=== PATIENT | female | born 2000 | race Caucasian/White ===

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

== ENCOUNTER 2021-10-19 21:58 | Emergency (ER) | payer MEDICAID, SELFPAY ==
[2021-10-19 21:59] VITALS: BP 125/82; PULSE 85; RESP 16; TEMP 36.9; O2SAT 100; BMI 22.1
--- NOTE | 2021-10-19 22:32 | US_ITS ---
STUDY: FIRST TRIMESTER OBSTETRICAL ULTRASOUND REASON FOR EXAM: Female, 21 years old pelvic pain and vaginal bleeding. Cramps. LMP: 09/22/2021. TECHNIQUE: Transvaginal TECHNICAL QUALITY: Adequate. PRIOR ULTRASOUND: None. FINDINGS: There is no demonstrated intrauterine gestational sac. . The estimated gestation age (EGA) by LMP is 5 weeks, 6 days. The estimated date of delivery (EDI) by LMP is 06/15/2022.. The uterus measures 9.3 x 6.0 x 3.9 cm. The endometrium measures 13 mm in thickness and is hyperechoic. There are scattered small cystic areas. There is no demonstrated uterine fibroid. The cervix is closed. The right ovary measures 4.1 x 3.6 x 3.3 cm. There are multiple cystic follicles. There is a 2.4 x 2.5 x 2.3 times centimeters septated cyst with internal echoes. This is a ringlike enhancement suggestive of corpus luteum cyst. There is no evidence of pole or yolk sac to suggest ectopic . There is no visualized right adnexal mass or complex lesion. The left ovary measures 2.7 x 2.2 x 1.9 cm. There are multiple follicles of the left ovary without a dominant cyst. There is no visualized left adnexal mass or complex lesion. There is minimal fluid in the cul de sac. US/Transvaginal w/Preg US IMPRESSION: 1. No evidence of intrauterine . There is a prominent heterogenous endometrium. 2. Irregular cystic structure within the right ovary thought to represent a corpus luteum cyst. This does not have the appearance of an ectopic . 3. Normal left ovary. 4. Minimal free fluid in the posterior cul-de-sac. The possibility of ectopic cannot be ruled out free fluid. Follow-up with beta hCG is recommended. Electronically Signed: Je Sánchez DO at 23:26 EDT ,
[2021-10-19 22:50] LABS: Mucous, Urine 0 SEEN /hpf (<or=2+)
[2021-10-19 22:52] LABS: Color, Urine Straw (Yellow); Glucose, Dipstick Normal (Normal); Ketone-Dipstick Negative (Negative); Leukocyte Esterase-Dipstick 25 /ul (Negative); Nitrite-Dipstick Negative (Negative); Occult Blood-Urine 250 /ul (Negative); Protein-Dipstick Negative (Negative); Specific Gravity, Urine 1.015 (1.002-1.030); Urine Bilirubin Dipstick Negative (Negative); Urine Clarity Clear (Clear); Urine Urobilinogen Normal (Normal)
[2021-10-19 23:11] LABS: Anion Gap 4 (5-15); BUN 18 mg/dL (7-18); BUN/Creat Ratio 19.5 RATIO (10-20); Calcium,Total 9.1 mg/dL (8.5-10.1); Chloride 107 mmol/L (98-107); Creatinine, Serum 0.92 mg/dL (0.55-1.02); EST Glomerular Filtration Rate 81 mL/min (>60); Est Glom Filt Rate - Afr Amer 98 mL/min (>60); Estimated Creatinine Clearance 80.02 ml/min; Glucose 98 mg/dL (74-106); Potassium 3.6 mmol/L (3.5-5.1); Sodium Level 137 mmol/L (136-145)
[2021-10-19 23:12] LABS: Absolute Lymphocyte Count 3.17 X10^3/uL (0.83-4.51); Absolute Neutrophil Count 6.6 X10^3/uL (2.0-7.7); Basophil# 0.06 X10^3/uL; Basophil% 0.6 % (0-1); Eosinophils% 3.7 % (0-5); Hematocrit 36.9 % (37-47); Hemoglobin 12.7 g/dL (12.0-15.0); Lymphocyte # 3.17 X10^3/ul (0.83-4.51); Lymphocyte % 29.1 % (19-41); Mean Corp Hgb Conc 34.4 g/dL (32-36); Mean Corpuscular Hgb 31.4 pg (27.0-32.0); Mean Corpuscular Volume 91.1 fL (81-99); Mean Platelet Vol. 9.9 fl (6.2-12.0); Monocyte# 0.55 X10^3/uL; NRBC Flagged by Analyzer 0 % (0-5); Neutrophil # 6.61 X10^3/uL (2.7-7.7); Neutrophil % 60.6 % (47-70); Platelet Count 292 K/mm3 (150-450); RBC Distribution Width SD 40.5 fl (35.1-43.9); Red Blood Count 4.05 M/mm3 (4.2-5.4); White Blood Count 10.9 K/mm3 (4.4-11.0)
[2021-10-19 23:15] LABS: hCG Titer Quant., Serum 961 mIU/mL (1-3)
[2021-10-19 23:47] LABS: Bacteria 1+ /hpf (None Seen); Red Blood Cells-Urine 0-5 SEEN /hpf (0-5); Squamous Epithelial Cells - UA 0-5 SEEN /hpf (5-10); White Blood Cells 0-5 SEEN /hpf (0-5)
--- NOTE | 2021-10-20 00:23 | ED.VIS.FEGU ---
HPI HPI - Female History of Present Illness Chief Complaint: Vag Bld, Preg Narrative Narrative: Patient is a G1, P0 female no significant past medical history. She states that she is approximately 2 weeks late on her menstrual cycle and a couple days ago took a home test which was positive. She states today she has some suprapubic cramping and mild amount of bleeding and with her status was concerned and therefore comes in for evaluation. PFSH PFSH Medical History no medical history Home Medications metronidazole 500 mg tablet (Flagyl) 500 mg PO BID 09/01/16 [History Last Taken 08/31/16] amoxicillin 500 mg capsule 500 mg PO TID 7 days #21 caps 10/20/21 [Rx Last Taken Unknown] Allergy/AdvReac Type Severity Reaction Status Date / Time No Known Allergies Allergy Verified 10/19/21 22:01 Social History Smoking Status: Current some day smoker tobacco type: e-cigarettes ROS ROS ED Constitutional Constitutional ED: Denies chills or fever(s) ENT ENT ED: Denies sore throat Cardiovascular Cardiovascular: Denies chest pain Respiratory/Chest Respiratory/Chest: Denies cough or dyspnea Gastrointestinal Gastrointestinal: Reports abdominal pain; Denies diarrhea, nausea or vomiting Genitourinary Genitourinary ED: Reports other Details: Positive vaginal bleeding but negative discharge ; Denies dysuria Musculoskeletal Musculoskeletal: Denies myalgias Integumentary Denies rash Neurologic Neurologic: Denies headache(s) Hematologic/Lymphatic Hematologic/Lymphatic: Denies easy bleeding or easy bruising EXAM Physical Exam Const Vital Signs: 10/19/21 21:59 Temperature 98.5 F Temperature Source Temporal Pulse Rate 85 Respiratory Rate 16 Blood Pressure 125/82 H Blood Pressure Mean 96 Pulse Ox 100 Oxygen Delivery Method Room Air Positive well nourished and well developed General Appearance ED: well developed HEENT Reports moist mucous membranes Eyes PERRL and EOMs intact bilaterally Neck supple Resp normal respiratory effort and clear to auscultation bilaterally Cardio regular rate and regular rhythm GI non-distended GI Narrative: Mild pain with palpation in the suprapubic region without voluntary guarding or rigidity Auscultation: normoactive bowel sounds Palpation: soft Back/Spine no CVA tenderness Extremity normal to inspection Neuro oriented x3 and CN's II-XII intact bilaterally Sensorium / Orientation: alert Psych mental status grossly normal Skin no rashes or lesions noted MDM MDM MDM Narrative Medical decision making narrative: Patient presented to the ER with stable vitals. She reported being with bleeding and abdominal pain and therefore a basic work-up was obtained along with transvaginal ultrasound. Patient's blood type is a positive therefore there is no need for RhoGAM. Her H&H is stable and her marker is only elevated slightly at 961. Ultrasound not show any obvious intrauterine gestation but cannot completely rule out ectopic . Secondary to this I discussed the case with [facility]. They agreed at this time with her stable vitals and minimal pain as well as low hCG value that there is no need for further evaluation at this time. She can follow-up on an outpatient basis and have repeat hCG values as well as ultrasounds obtained if necessary. Her urine did show mild bacteria without contamination and therefore urine was sent for culture and she was started on amoxicillin Lab Data Attestation: I reviewed the patient's lab results. Labs: Laboratory Results - last 24 hr 10/19/21 10/19/21 10/19/21 22:44 22:48 22:48 WBC 10.9 RBC 4.05 L Hgb 12.7 Hct 36.9 L MCV 91.1 MCH 31.4 MCHC 34.4 RDW Std Deviation 40.5 RDW Coeff of Lamin 12.0 Plt Count 292 MPV 9.9 Immature Gran % (Auto) 1.000 H Neut % (Auto) 60.6 Lymph % (Auto) 29.1 [place] % (Auto) 5.0 Eos % (Auto) 3.7 Baso % (Auto) 0.6 Absolute Neuts (auto) 6.6 Absolute Lymphs (auto) 3.17 Nucleated RBC % 0 Sodium 137 Potassium 3.6 Chloride 107 Carbon Dioxide 26.0 Anion Gap 4 L BUN 18 Creatinine 0.92 Estim Creat Clear Calc 80.02 Est GFR (MDRD) Af Amer 98 Est GFR (MDRD) Non-Af 81 BUN/Creatinine Ratio 19.5 Glucose 98 Calcium 9.1 HCG, Quant Urine Color Straw Urine Clarity Clear Urine pH 6.0 Ur Specific [place] 1.015 Urine Protein Negative Urine Glucose (UA) Normal Urine Ketones Negative Urine Occult Blood 250 H Urine Nitrite Negative Urine Bilirubin Negative Urine Urobilinogen Normal Ur Leukocyte Esterase 25 H Urine RBC 0-5 SEEN Urine WBC 0-5 SEEN Ur Squamous Epith Cells 0-5 SEEN Urine Bacteria 1+ Urine Mucus 0 SEEN Blood Type 10/19/21 10/19/21 22:48 22:48 WBC RBC Hgb Hct MCV MCH MCHC RDW Std Deviation RDW Coeff of [place]amin Plt Count MPV Immature Gran % (Auto) Neut % (Auto) Lymph % (Auto) [place] % (Auto) Eos % (Auto) Baso % (Auto) Absolute Neuts (auto) Absolute Lymphs (auto) Nucleated RBC % Sodium Potassium Chloride Carbon Dioxide Anion Gap BUN Creatinine Estim Creat Clear Calc Est GFR (MDRD) Af Amer Est GFR (MDRD) Non-Af BUN/Creatinine Ratio Glucose Calcium HCG, Quant 961 H Urine Color Urine Clarity Urine pH Ur Specific [place] Urine Protein Urine Glucose (UA) Urine Ketones Urine Occult Blood Urine Nitrite Urine Bilirubin Urine Urobilinogen Ur Leukocyte Esterase Urine RBC Urine WBC Ur Squamous Epith Cells Urine Bacteria Urine Mucus Blood Type A POSITIVE Radiography Diagnostic Testing: Clinical Impression(s) from Imaging Studies Obstetrics Ultrasound 10/19/21 22:32 IMPRESSION: 1. No evidence of intrauterine . There is a prominent heterogenous endometrium. 2. Irregular cystic structure within the right ovary thought to represent a corpus luteum cyst. This does not have the appearance of an ectopic . 3. Normal left ovary. 4. Minimal free fluid in the posterior cul-de-sac. The possibility of ectopic cannot be ruled out free fluid. Follow-up with beta hCG is recommended. Electronically Signed: Je Sánchez DO at 23:26 EDT Reading Location ID and State: [address] [place] [address] Tel [phone], Service support , Discharge Plan Triage Chief Complaint: Vag Bld, Preg ED Provider: Ezio Shipley Dx/Rx/DC Orders Clinical Impression: Threatened miscarriage in early Instructions: ED Possible Miscarriage ... Prescriptions: New amoxicillin 500 mg capsule 500 mg PO TID 7 Days Qty: 21 0RF No Action metronidazole [Flagyl] 500 MG tablet 500 mg PO BID Primary Care Provider: Care Physician,No Primary Referrals: Zuleyma Huston DO [Med Staff - Active Staff] - 1 Day Care Physician,No Primary [Primary Care Provider] - Activity Restrictions/Additional Instructions: Please follow-up with [facility] and for repeat blood work as well as evaluation. If you develop a fever over 100.4 or have severe increase in pain or bleeding please return to the ER for repeat evaluation Disposition Disposition: Home, Self Care Discharge Date/Time: 10/20/21 00:46
== END 2021-10-20 00:46 | disposition home or self-care (01) ==
PROVIDERS: Emergency Provider Emergency Medicine; Visit Provider Emergency Medicine
DX: O20.0 Threatened abortion (principal); O99.330 Smoking (tobacco) complicating pregnancy, unspecified trimester; F17.290 Nicotine dependence, other tobacco product, uncomplicated; Z3A.00 Weeks of gestation of pregnancy not specified
CPT/HCPCS: 36415; 76817; 80048; 81001; 84702; 85025; 86900; 86901; 87086; 87088; 99282

== ENCOUNTER → 2021-10-21 | Outpatient (CLI) | payer MEDICAID, SELFPAY ==
[2021-10-21 11:55] LABS: hCG Titer Quant., Serum 1755 mIU/mL (1-3)
[2021-10-22 21:07] LABS: Chlamydia By Nucleic Acid AMP Positive (Negative)
[2021-10-22 21:42] LABS: Gonococcus By Nucleic Acid AMP Negative (Negative)
[2021-10-25 10:52] LABS: HPV Reflexed? NOT INDICATED
== END | disposition home or self-care (01) ==
LOC: WOBLAB 09:29
PROVIDERS: Visit Provider Student in an Organized Health Care Education/Training Program
DX: Z34.81 Encounter for supervision of other normal pregnancy, first trimester (principal); Z12.4 Encounter for screening for malignant neoplasm of cervix; Z11.3 Encounter for screening for infections with a predominantly sexual mode of transmission
CPT/HCPCS: 36415; 84702; 87491; 87591; 88175; G0145

== ENCOUNTER → 2021-11-04 | Outpatient (CLI) | payer MEDICAID, SELFPAY ==
[2021-11-04 10:37] LABS: Absolute Lymphocyte Count 1.75 X10^3/uL (0.83-4.51); Absolute Neutrophil Count 5.7 X10^3/uL (2.0-7.7); Basophil# 0.05 X10^3/uL; Basophil% 0.6 % (0-1); Eosinophil# 0.34 X10^3/uL; Eosinophils% 4.1 % (0-5); Hematocrit 39.4 % (37-47); Lymphocyte # 1.75 X10^3/ul (0.83-4.51); Lymphocyte % 21.2 % (19-41); Mean Corpuscular Hgb 30.2 pg (27.0-32.0); Mean Corpuscular Volume 91.6 fL (81-99); Mean Platelet Vol. 9.8 fl (6.2-12.0); Monocyte# 0.43 X10^3/uL; Monocyte% 5.2 % (0-10); NRBC Flagged by Analyzer 0 % (0-5); Neutrophil # 5.66 X10^3/uL (2.7-7.7); Neutrophil % 68.5 % (47-70); Platelet Count 301 K/mm3 (150-450); RBC Distribution Width CV 12.1 % (11.6-14.6); RBC Distribution Width SD 40.3 fl (35.1-43.9); White Blood Count 8.3 K/mm3 (4.4-11.0)
[2021-11-04 11:51] LABS: HIV - WCH Non-Reactive (Nonreactive); Hepatitis B Surface Antigen Non-Reactive (Nonreactive); Hepatitis C Antibody Non-Reactive (Nonreactive); Rubella IgG Reactive (Nonreactive); Syphilis Antibodies Non-reactive
[2021-11-08 18:27] LABS: V-Zoster IgG (Immunity) 314 index (Immune >165)
== END | disposition home or self-care (01) ==
LOC: PAVLAB 10:10
PROVIDERS: Visit Provider Student in an Organized Health Care Education/Training Program
DX: Z34.81 Encounter for supervision of other normal pregnancy, first trimester (principal)
CPT/HCPCS: 36415; 85025; 86703; 86762; 86780; 86787; 86803; 86850; 86900; 86901; 87086; 87088; 87340

== ENCOUNTER → 2022-01-05 | Outpatient (CLI) | payer MEDICAID, SELFPAY ==
[2022-01-06 22:07] LABS: Chlamydia By Nucleic Acid AMP Negative (Negative)
[2022-01-08 15:00] LABS: Gonococcus By Nucleic Acid AMP Negative (Negative)
== END | disposition home or self-care (01) ==
LOC: LABSPEC 09:42
PROVIDERS: Visit Provider Student in an Organized Health Care Education/Training Program
DX: Z11.3 Encounter for screening for infections with a predominantly sexual mode of transmission (principal)
CPT/HCPCS: 87491; 87591

== ENCOUNTER → 2022-03-29 | Outpatient (CLI) | payer OTHER, MEDICAID, SELFPAY ==
[2022-03-29 09:26] LABS: Absolute Lymphocyte Count 2.32 X10^3/uL (0.83-4.51); Absolute Neutrophil Count 7.3 X10^3/uL (2.0-7.7); Basophil# 0.08 X10^3/uL; Basophil% 0.7 % (0-1); Eosinophils% 6.3 % (0-5); Hematocrit 35.7 % (37-47); Hemoglobin 12.1 g/dL (12.0-15.0); Lymphocyte # 2.32 X10^3/ul (0.83-4.51); Lymphocyte % 20.8 % (19-41); Mean Corp Hgb Conc 33.9 g/dL (32-36); Mean Corpuscular Hgb 31.2 pg (27.0-32.0); Mean Platelet Vol. 10.8 fl (6.2-12.0); Monocyte# 0.67 X10^3/uL; NRBC Flagged by Analyzer 0 % (0-5); Neutrophil # 7.27 X10^3/uL (2.7-7.7); Neutrophil % 65.2 % (47-70); Platelet Count 249 K/mm3 (150-450); RBC Distribution Width CV 12.2 % (11.6-14.6); RBC Distribution Width SD 40.5 fl (35.1-43.9); Red Blood Count 3.88 M/mm3 (4.2-5.4); White Blood Count 11.2 K/mm3 (4.4-11.0)
[2022-03-29 09:53] LABS: Glucose Challenge Gest 1H 50g 131 mg/dL (70-140)
== END | disposition home or self-care (01) ==
LOC: WOBLAB 09:05
PROVIDERS: Visit Provider Student in an Organized Health Care Education/Training Program
DX: Z34.82 Encounter for supervision of other normal pregnancy, second trimester (principal)
CPT/HCPCS: 36415; 82950; 85025

== ENCOUNTER 2022-04-12 09:40 | Outpatient (CLI) | payer OTHER, MEDICAID, SELFPAY ==
[2022-04-12] VITALS (50 sets, daily range): BP systolic 123–179; BP diastolic 74–114; PULSE 51–121; RESP 16; TEMP 36.6–36.7; O2SAT 81–100; BMI 29.4
[2022-04-12] MEDS: Lactated Ringers 1,000 ML 999 ML IV (10:35)
[2022-04-12] MEDS: hydrALAZINE 20 MG/ML Vial 10 MG IV (10:47)
[2022-04-12] MEDS: Magnesium Sulfate 4gm/100mL 4 GM/100 ML IV.SOLN. IV (10:50)
[2022-04-12 10:53] LABS: Absolute Lymphocyte Count 2.81 X10^3/uL (0.83-4.51); Absolute Neutrophil Count 9.7 X10^3/uL (2.0-7.7); Basophil# 0.11 X10^3/uL; Basophil% 0.8 % (0-1); Eosinophil# 0.42 X10^3/uL; Eosinophils% 3.1 % (0-5); Hematocrit 41.5 % (37-47); Hemoglobin 14.3 g/dL (12.0-15.0); Lymphocyte # 2.81 X10^3/ul (0.83-4.51); Lymphocyte % 20.5 % (19-41); Mean Corp Hgb Conc 34.5 g/dL (32-36); Mean Corpuscular Hgb 30.4 pg (27.0-32.0); Mean Corpuscular Volume 88.3 fL (81-99); Monocyte# 0.59 X10^3/uL; Monocyte% 4.3 % (0-10); NRBC Flagged by Analyzer 0 % (0-5); Neutrophil # 9.66 X10^3/uL (2.7-7.7); Neutrophil % 70.2 % (47-70); Platelet Count 249 K/mm3 (150-450); RBC Distribution Width CV 12.7 % (11.6-14.6); RBC Distribution Width SD 41.3 fl (35.1-43.9); White Blood Count 13.7 K/mm3 (4.4-11.0)
--- NOTE | 2022-04-12 10:54 | HP.PCM.OB_ITS ---
History and Physical Date of Admission: 04/12/22 HPI: 21-year-old G1, P0 at 29/2 weeks, EDI 06/26/2022 by first trimester ultrasound, admitted for severe preeclampsia based on severe range blood pressures and persistent headache. Reports that she has had headache for 3 days it is in the occipital region. Denies visual disturbances. Has had nausea and vomiting since onset. Tylenol is not improved headache. Denies right upper quadrant pain, chest pain or shortness of breath, diarrhea or constipation, fevers or chills. Reports movement. Denies contractions, leaking of fluid, vaginal bleeding. complicated by: Chlamydia in with a negative test of cure, marginal cord insertion, eczema [employer] history G1: Current Medical history: 1. Eczema Surgical history: 1. Bunion removal bilateral feet 2013 2. [place] tooth extraction 2020 No history of issues with anesthesia Family history: Noncontributory, grandmother had ovarian cancer Allergies: No known drug allergies Social history: Denies tobacco, alcohol, drug use Review of system: Negative otherwise stated above Physical exam: Blood pressure 176/106, pulse 85, respiratory rate 16, pulse ox 100% on room air General: No acute distress HEENT: Normocephalic/atraumatic, PERRLA Cardiac: Regular rate and rhythm, no murmurs rubs or gallops Respiratory: No increased effort, clear to auscultation bilaterally Abdomen: Soft, nontender, gravid Extremities: No edema Neurologic: Cranial nerves II through XII grossly intact, patellar reflexes 3/4, no clonus Musculoskeletal: Strength 5-5 throughout extremities FHR: 135/mod alise/+accel/no decel [place]: rare labs: A positive Syphilis negative Hepatitis B/hepatitis C negative/negative HIV negative Rubella immune Varicella immune Chlamydia positive at first OB visit, repeat negative in December. Gonorrhea has been negative both times. Glucose test 131 Declined genetic and carrier screening Admission labs: WBC 13.7, hemoglobin/hematocrit 14.3/41.5, platelets 249 CMP, LDH, urine protein creatinine ratio pending GBS pending Assessment/plan: 21-year-old G1, P0 at 29/2 weeks, EDI 06/26/2022 by first trimester ultrasound, admitted for severe preeclampsia. complicated by: Chlamydia in with a negative test of cure, marginal cord insertion, eczema. ?Patient diagnosed with severe preeclampsia based on severe range blood pressures and neurologic symptoms with persistent headache. ?Patient given 10 mg IV hydralazine, repeat blood pressure pending. ?Started on magnesium sulfate 6 g bolus, followed by 2 g/h ?[place] 12 mg given ?GBS collected ?CBC within normal limits. CMP, LDH, urine protein creatinine ratio pending ?Discussed diagnosis at length with patient and her partner. Discussed recommendations for maternal blood pressure stabilization with subsequent transport to [facility]. Reviewed likely plan of care with anticipated delivery at 34 weeks. Reviewed maternal risks and risk with prolonged NICU stay. Patient and her partner understand. Questions answered. ?Reviewed plan with bedside RN and charge nurse.
[2022-04-12 11:07] LABS: Color, Urine Yellow (Yellow); Glucose, Dipstick Normal (Normal); Ketone-Dipstick Negative (Negative); Leukocyte Esterase-Dipstick 100 /ul (Negative); Nitrite-Dipstick Positive (Negative); Occult Blood-Urine 25 /ul (Negative); Protein-Dipstick 500 mg/dl (Negative); Urine Bilirubin Dipstick Negative (Negative); Urine Clarity Sl. Cloudy (Clear); Urine Urobilinogen Normal (Normal)
[2022-04-12 11:09] LABS: ALB/GLOB Ratio 0.7 RATIO (0.9-2.4); AST(SGOT) 24 U/L (15-37); Alanine Aminotransfer ALT/SGPT 20 U/L (13-56); Albumin, Serum 2.7 g/dL (3.2-5.0); Alkaline Phosphatase 305 U/L (45-117); Anion Gap 6 (5-15); BUN 29 mg/dL (7-18); Calcium,Total 10.2 mg/dL (8.5-10.1); Chloride 111 mmol/L (98-107); Creatinine, Serum 1.16 mg/dL (0.55-1.02); EST Glomerular Filtration Rate 62 mL/min (>60); Est Glom Filt Rate - Afr Amer 75 mL/min (>60); Estimated Creatinine Clearance 63.46 ml/min; Glucose 71 mg/dL (74-106); LDH 292 U/L (84-246); Potassium 4.7 mmol/L (3.5-5.1); Protein, Total 6.7 g/dL (6.4-8.2); Sodium Level 141 mmol/L (136-145)
[2022-04-12] MEDS: Magnesium Sulfate 4gm/100mL 2 GM/50 ML IV.SOLN. IV (11:15)
[2022-04-12] MEDS: Ondansetron 4 MG/2 ML Vial IV (11:17)
[2022-04-12] MEDS: Betamethasone/Betamethasone 30 MG/5 ML Vial 12 MG IM (11:23)
[2022-04-12] MEDS: Magnesium Sulfate 20 GM/500 ML BAG IV (11:30)
[2022-04-12] MEDS: Acetaminophen/Butalbital/Caffe 1 Tablet 2 TABLET PO (11:36)
[2022-04-12 11:37] LABS: Protein:Creat Ratio 10039 mg/g CRE (0-200)
[2022-04-12] MEDS: Labetalol 100 MG Tablet PO (12:24)
== END 2022-04-12 13:30 | disposition short-term general hospital (02) ==
LOC: WPOUT 09:44 → WP 09:54
PROVIDERS: Referring Provider Student in an Organized Health Care Education/Training Program; Visit Provider Student in an Organized Health Care Education/Training Program
DX: O14.13 Severe pre-eclampsia, third trimester (principal); Z3A.29 29 weeks gestation of pregnancy
CPT/HCPCS: 96375; 59050; 80053; 81002; 82570; 83615; 84156; 85025; 86850; 86900; 86901; 96365; 96372; J7120; J0702; J2405

== ENCOUNTER → 2022-05-24 | Outpatient (CLI) | payer OTHER, MEDICAID, SELFPAY ==
[2022-05-24 14:28] LABS: Hematocrit 37.2 % (37-47); Hemoglobin 11.9 g/dL (12.0-15.0); Mean Corpuscular Hgb 29.5 pg (27.0-32.0); Mean Corpuscular Volume 92.1 fL (81-99); Mean Platelet Vol. 9.8 fl (6.2-12.0); Platelet Count 310 K/mm3 (150-450); RBC Distribution Width CV 12.2 % (11.6-14.6); Red Blood Count 4.04 M/mm3 (4.2-5.4); White Blood Count 7.8 K/mm3 (4.4-11.0)
[2022-05-24 14:29] LABS: Protein:Creat Ratio 91 mg/g CRE (0-200)
[2022-05-24 14:45] LABS: ALB/GLOB Ratio 1.1 RATIO (0.9-2.4); AST(SGOT) 35 U/L (15-37); Alanine Aminotransfer ALT/SGPT 50 U/L (13-56); Albumin, Serum 3.8 g/dL (3.2-5.0); Alkaline Phosphatase 70 U/L (45-117); Anion Gap 9 (5-15); BUN 15 mg/dL (7-18); BUN/Creat Ratio 16.8 RATIO (10-20); Calcium,Total 9.3 mg/dL (8.5-10.1); Chloride 108 mmol/L (98-107); EST Glomerular Filtration Rate 84 mL/min (>60); Est Glom Filt Rate - Afr Amer 101 mL/min (>60); Globulin 3.4 g/dL (2.2-4.2); Glucose 86 mg/dL (74-106); Potassium 3.7 mmol/L (3.5-5.1); Protein, Total 7.2 g/dL (6.4-8.2); Sodium Level 141 mmol/L (136-145)
[2022-05-27 08:29] LABS: Beta-2-Microglobulin, S 1.4 mg/L (0.6-2.4)
[2022-05-27 16:09] LABS: Dilute Prothrombin Time (dPT) 38.8 sec (0.0-47.6); Dilute Russell Viper Venom 37.1 sec (0.0-47.0); Thrombin Time 18.6 sec (0.0-23.0); dPT Confirm Ratio 0.91 Ratio (0.00-1.34)
[2022-05-27 17:28] LABS: Anti-Cardiolipin Ab, IgG, Qn < 9 GPL U/mL (0-14); Anti-Cardiolipin Ab, IgM, Qn 21 MPL U/mL (0-12); Interpretation Comment: (.); PTT-LA 37.9 sec (0.0-43.5)
== END | disposition home or self-care (01) ==
LOC: WOBLAB 13:55
PROVIDERS: Visit Provider Student in an Organized Health Care Education/Training Program
DX: O14.95 Unspecified pre-eclampsia, complicating the puerperium (principal)
CPT/HCPCS: 36415; 80053; 82232; 82570; 84156; 85027; 86147; 87086; 87088

== ENCOUNTER → 2022-08-24 | Outpatient (CLI) | payer OTHER, MEDICAID, SELFPAY ==
[2022-08-27 00:06] LABS: Anti-Cardiolipin Ab, IgG, Qn < 9 GPL U/mL (0-14); Anti-Cardiolipin Ab, IgM, Qn 13 MPL U/mL (0-12); Dilute Prothrombin Time (dPT) 40.1 sec (0.0-47.6); Dilute Russell Viper Venom 40.6 sec (0.0-47.0); Interpretation Comment: (.); PTT-LA 36.4 sec (0.0-43.5); Thrombin Time 16.5 sec (0.0-23.0); dPT Confirm Ratio 1.04 Ratio (0.00-1.34)
[2022-08-27 07:08] LABS: Beta-2-Microglobulin, S 1.6 mg/L (0.6-2.4)
== END | disposition home or self-care (01) ==
LOC: WOBLAB 13:41
PROVIDERS: Visit Provider Student in an Organized Health Care Education/Training Program
DX: O14.14 Severe pre-eclampsia complicating childbirth (principal)
CPT/HCPCS: 36415; 82232; 86147

== ENCOUNTER → 2024-01-10 | Outpatient (CLI) | payer OTHER, SELFPAY ==
[2024-01-10 17:40] LABS: Absolute Lymphocyte Count 2.92 X10^3/uL (0.83-4.51); Absolute Neutrophil Count 3.6 X10^3/uL (2.0-7.7); Basophil# 0.06 X10^3/uL; Basophil% 0.8 % (0-1); Eosinophil# 0.39 X10^3/uL; Eosinophils% 5.2 % (0-5); Hematocrit 40.2 % (37-47); Hemoglobin 13.1 g/dL (12.0-15.0); Lymphocyte # 2.92 X10^3/ul (0.83-4.51); Lymphocyte % 39.1 % (19-41); Mean Corp Hgb Conc 32.6 g/dL (32-36); Mean Corpuscular Hgb 29.8 pg (27.0-32.0); Mean Corpuscular Volume 91.4 fL (81-99); Mean Platelet Vol. 11.1 fl (6.2-12.0); Monocyte# 0.45 X10^3/uL; NRBC Flagged by Analyzer 0 % (0-5); Neutrophil # 3.63 X10^3/uL (2.7-7.7); Neutrophil % 48.8 % (47-70); Platelet Count 318 K/mm3 (150-450); RBC Distribution Width CV 12.6 % (11.6-14.6); RBC Distribution Width SD 41.7 fl (35.1-43.9); White Blood Count 7.5 K/mm3 (4.4-11.0)
[2024-01-10 18:06] LABS: ALB/GLOB Ratio 1.3 RATIO (0.9-2.4); AST(SGOT) 13 U/L (15-37); Alanine Aminotransfer ALT/SGPT 14 U/L (13-56); Albumin, Serum 4.4 g/dL (3.2-5.0); Alkaline Phosphatase 49 U/L (45-117); Anion Gap 7 (5-15); BUN 10 mg/dL (7-18); BUN/Creat Ratio 11.4 RATIO (10-20); Calcium,Total 9.4 mg/dL (8.5-10.1); Chloride 106 mmol/L (98-107); Creatinine, Serum 0.88 mg/dL (0.55-1.02); EST Glomerular Filtration Rate 85 mL/min (>60); Est Glom Filt Rate - Afr Amer 102 mL/min (>60); Ferritin 13 ng/mL (8-252); Globulin 3.4 g/dL (2.2-4.2); Glucose 80 mg/dL (74-106); Potassium 3.7 mmol/L (3.5-5.1); Protein, Total 7.8 g/dL (6.4-8.2); Sodium Level 138 mmol/L (136-145)
[2024-01-16 17:07] LABS: Anti-Nuclear Antibody Test Negative (.); Anti-dsDNA Ab 1 IU/mL (0-9)
[2024-01-17 17:07] LABS: Zinc, Plasma or Serum 73 ug/dL (44-115)
== END | disposition home or self-care (01) ==
LOC: MTLAB 16:01
PROVIDERS: Referring Provider Physician Assistant; Visit Provider Physician Assistant
DX: L65.9 Nonscarring hair loss, unspecified (principal); L20.89 Other atopic dermatitis; L40.0 Psoriasis vulgaris; Z79.899 Other long term (current) drug therapy
CPT/HCPCS: 36415; 80053; 82306; 82652; 82728; 84630; 85025; 86038; 86225

== ENCOUNTER 2024-11-06 05:31 | Inpatient (IN) | payer BC, SELFPAY ==
[2024-11-06] VITALS (20 sets, daily range): BP systolic 108–132; BP diastolic 55–89; PULSE 77–110; RESP 16–18; TEMP 36.2–36.8; O2SAT 100
--- OUTSIDE RECORDS SUMMARY | 2024-11-06 04:46 | XMS RPT_ITS | CCD ---
Author Organization [facility] Care Team Providers Care Clinical Orthoptist Name Role Phone Yoli Moreland Unavailable [phone] Unavailable Unavailable GIA MCLAUGHLIN Referring Unavailable GIA MCLAUGHLIN Admitting Unavailable GIA MCLAUGHLIN Attending Unavailable Hodan Luong MD Primary Care Provider Unavailable Primary Care Provider Unavailabl e Bibiana Momin Referring Unavailable Bibiana Momin Attending Unavailable Care Physician, No Primary Primary Care Unava ilable HODAN LUONG Primary Care Unavailable SELF Referring Unavailable KATHERINE BRUNNER Attending Unavailable LUIS CARLOS, HODAN Dillan Primary Care Unavailable KATHERINE BRUNNER Attending Unavailable KATHERINE BRUNNER Referring Unavailable LUIS CARLOS, HODAN Dillan Primary Care Unavailable KAMAR VALDOVINOS Attending Unavailable SANTOSH, CAREY Referring Unavailable LUIS CARLOS, HODAN Dillan Primary Care Unavailable HAMASON, MIK Attending Unavailable KATHERINE BRUNNER Referring Unavailable LUIS CARLOS, HODAN Dillan Primary Care Unavailable CAREY FROST Referring Unavailable LUIS CARLOS, HODAN Dillan Primary Care Unavailable SELF Referring Unavailable DAIJA ROBLERO Attending Unavailable LUIS CARLOS, HODAN L Primary Care Unavailable SANTOSH, CAREY Attending Unavailable LUIS CARLOS, HODAN L Primary Care Unavailable SANTOSH, CAREY Referring Unavailable HAMASON, MIK Referring Unavailable LUIS CARLOS, HODAN L Primary Care Unavailable LUIS CARLOS, HODAN L Primary Care Unavailable DAIJA ROBLERO Attending Unavailable KATHERINE BRUNNER Referring Unavailable LUIS CARLOS, HODAN Dillan Primary Care Unavailable LUIS CARLOS, HODAN L Primary Care Unavailable HAMASON, MIK Attending Unavailable LUIS CARLOS, HODAN L Primary Care Unavailable HAURY, MIK Referring Unavailable KATHERINE BRUNNER Attending Unavailable LUIS CARLOS, HODAN L Primary Care Unavailable HAURY, MIK Referring Unavailable LUIS CARLOS, HODAN L Primary Care Unavailable KAMAR VALDOVINOS Referring Unavailable MIK MENDOZA Referring Unavailable KAMAR VALDOVINOS Attending Unavailable HODAN LUONG Primary Care Unavailable DARNELL BLANK Attending Unavailable MIK MENDOZA Referring Unavailable HODAN LUONG Primary Care Unavailable HODAN LUONG Primary Care Unavailable MIK MENDOZA Attending Unavailable HODAN LUONG Primary Care Unavailable DAIJA ROBLERO Referring Unavailable Medications Current Medications Medication Drug Class(es) Dates Sig (Normalized) Sig (Original) amoxicillin 500 mg oral capsule (2 sources) Penicillin-class Antibacterial Start: 10-20-2021 take 500 mg by mouth three times daily Amoxicillin Active 500 MG PO THREE TIMES A DAY 14 10October 20, 2021 12:00am aspirin 81 mg delayed release oral tablet (20 sources) Platelet Aggregation Inhibitor, Nonsteroidal Anti-inflammatory Drug Start: 03-28-2024 take 1 tablet by mouth once daily aspirin, enteric coated (ECOTRIN LOW STRENGTH) 81 mg EC tablet Indications: 7 weeks gestation of (HCC) Take 1 tablet by mouth once daily. 90 tablet 3 03/28/2024 Active docusate sodium 100 mg oral capsule (4 sources) Start: 04-12-2022 End: 05-15-2022 take 1 capsule by mouth twice daily as needed for constipation Docusate Sodium (DSS) 100 MG capsule Take 1 capsule (100 mg) by mouth 2 times daily as needed for constipation for up to 10 days. 60 capsule 0 04/15/2022 05/15/2022 Active ferrous sulfate 325 mg oral tablet (20 sources) Start: 04-13-2022 End: 04-15-2023 take 1 tablet by mouth in the morning ferrous sulfate 325 (65 Fe) MG tablet Take 1 tablet (325 mg) by mouth in the morning and 1 tablet (325 mg) in the evening. Take with meals. 60 tablet 0 04/15/2022 04/15/2023 Active take 1 tablet by mouth once nestor y ferrous sulfate (IRON) 325 mg (65 mg iron) tablet Take 325 mg by mouth once daily. Active metroNIDAZOLE 500 mg oral tablet (2 sources) Nitroimidazole Antimicrobial Start: 09-01-2016 take 1 tablet by mouth twice daily Metronidazole (Flagyl) 500 MG tablet Active 500 MG PO TWICE A DAY September 01, 2016 12:00am oxyCODONE hydrochloride 5 mg oral tablet (4 sources) Opioid Agonist Start: 04-15-2022 End: 04-20-2022 take 1 tablet by mouth every six hours as needed for pain oxyCODONE (Roxicodone) 5 MG immediate release tablet Indications: S/P Take 1 tablet (5 mg) by mouth every 6 hours as needed for moderate pain (4-6) for up to 5 days. 20 tablet 0 04/15/2022 04/20/2022 Active Start: 04-13-2022 End: 04-15-2022 take 1 tablet by mouth every four hours as needed for pain oxyCODONE (Roxicodone) immediate release tablet 5 mg 25/iron/folate 6/dha (PRENA1 ORAL) (20 sources) take 1 tablet by mouth once daily 25/iron/folate 6/dha (PRENA1 ORAL) Take 1 tablet by mouth once daily. Active Ykhgvwxf-App-Zc-Fa () 1 mg Tablet (4 sources) Start: 04-12-2022 take 1 tablet by mouth once Mwsvpput-Cuz-Tl-Fa () 1 mg Tablet Active TABLET PO April 12, 2022 1:00am Start: 04-12-2022 take 1 tablet by mouth once Pr enatal Jogxmuho-Bur-Om-Fa () 1 mg Tablet Active TABLET PO April 12, 2022 12:00am MV-Min-Fe Fum-FA-DH A ( 1 PO) (2 sources) MV-Min- Fe Fum-FA-DHA ( 1 PO) Take by mouth. 0 Active Completed/Discontinued Medications Medication Drug Class(es) Dates Sig (Normalized) Sig (Original) acetaminophen 325 mg oral tablet (20 sources) Start: 04-12-2022 End: 04-15-2022 take 1 tablet by mouth every six hours as needed for pain 650 mg, Oral, Every 6 hours PRN, mild pain (1-3), Pain (1-10), Starting on Mon04/12/22 at 2314, Give in addition to any other pain medication ordered at same time for any pain indication.&nbs p; Maximum dose of acetaminophen is 4000mg from all sources in 24 hours. Alternate ibuprofen and acetaminophen every 3 hours. acetaminophen (T YLENOL ORAL) Take 500 mg by mouth as needed. Active aluminum chloride 200 mg/ml topical solution (3 sources) Start: 04-28-2021 Drysol 20 % External Solution APPLY SPARINGLY TO AFFECTED AREA(S) ONCE DAILY Quantity: 1 Refills: 3 Ordered: 28-Apr-2021 Yoli Moreland MD Start : 28-Apr-2021 Active busPIRone hydrochloride 10 mg oral tablet (1 source) Start: 05-27-2021 take 1 tablet by mouth twice daily busPIRone HCl - 10 MG Oral Tablet TAKE 1 TABLET TWICE DAILY. Quantity: 60 Refills: 5 Ordered: 27-May-2021 Yoli Moreland MD Start : 27-May-2021 Active calcium chloride 0.0014 meq/ml / potassium chloride 0.004 meq/ml / sodium chloride 0.103 meq/ml / sodium lactate 0.028 meq/ml injectable solution (2 sources) Start: 04-13-2022 End: 04-13-2022 lactated Ringer's bolus 500 mL citric acid 66.8 mg/ml / sodium citrate 100 mg/ml oral solution (2 sources) Calculi Dissolution Agent, Anti-coagulant Start: 04-12-2022 End: 04-12-2022 citric acid-sodium citrate (Bicitra) solution 30 mL copper 313 mg drug implant (4 sources) Copper-containing Intrauterine Device Start: 04-12-2022 End: 04-12-2022 copper (Paragard) IUD Start: 04-12-2022 End: 04-12-2022 copper (Paragard) IUD - Pyxi s ADS Override Pull 1 ml diphenhydrAMINE hydrochloride 50 mg/ml cartridge (2 sources) Histamine-1 Receptor Antagonist Start: 04-12-2022 End: 04-15-2022 take 25 mg intravenously every six hours as needed 25 mg, IntraVENous, Every 6 hours PRN, itching, hives, Starting on Mon04/12/22 at 2314, 0.4 ml enoxaparin sodium 100 mg/ml prefilled syringe (2 sources) Low Molecular Weight Heparin Start: 04-13-2022 End: 04-15-2022 enoxaparin (Lovenox) syringe 40 mg escitalopram 10 mg oral tablet (6 sources) Serotonin Reuptake Inhibitor Start: 02-25-2021 take 1 tablet by mouth once daily Escitalopram Oxalate 10 MG Oral Tablet Take 1 tablet daily Quantity: 30 Refills: 5 Ordered: 12-Mar-2021 Yoli Moreland MD Start : 25-Feb-2021 Active Start: 02-25-2021 take 1 tablet by jarrett th once daily Escitalopram Oxalate 5 MG Oral Tablet TAKE 1 TABLET DAILY. Quantity: 30 Refills: 1 Ordered: 25-Feb-2021 Yoli Moreland MD Start : 25-Feb-2021 Active famotidine 20 mg oral tablet (2 sources) Histamine-2 Receptor Antagonist Start: 04-12-2022 End: 04-15-2022 take 20 mg by mouth twice daily 20 mg, Oral, 2 times daily, First dose on Mon04/12/22 at 2315, Renal dose per pharmacy for peptic ulcer prophylaxis. HYDROmorphone (Dilaudid) injection 0.25 mg (2 sources) Start: 04-13-2022 End: 04-15-2022 HYDROmorphone (Dilaudid) injection 0.25 mg ibuprofen 600 mg oral tablet (2 sources) Nonsteroidal Anti-inflammatory Drug Start: 04-15-2022 End: 04-15-2022 take 1 tablet by mouth every six hours as needed for pain ibuprofen 600 MG tablet Take 1 tablet (600 mg) by mouth every 6 hours as needed for mild pain (1-3) for up to 10 days. 90 tablet 0 04/15/2022 04/15/2022 Discontinued (Stop taking at discharge) lanolin 1000 mg/ml topical cream (2 sources) Start: 04-12-2022 End: 04-15-2022 Topical, Every 1 hour PRN, dry skin, nipple discomfort, Starting on Mon04/12/22 at 2314, Apply to affected area 500 ml magnesium sulfate 40 mg/ml injection (4 sources) Start: 04-12-2022 End: 04-12-2022 magnesium sulfate IVPB premix 2,000 mg Start: 04-12-2022 End: 04-13-2022 magnesium sulfate 20 GM/500M L infusion NIFEdipine 30 mg osmotic 24 hr extended release oral tablet (10 sources) Dihydropyridine Calcium Channel Delroy Start: 04-12-2022 End: 04-16-2023 NIFEdipine XL (Procardia XL) 24 hr tablet 60 mg ondansetron ODT (Zofran-ODT) disintegrating tablet 4 mg (2 sources) Start: 04-12-2022 End: 04-15-2022 take 1 tablet by mouth every eight hours as needed for nausea and vomiting ondansetron ODT (Zofran-ODT) disintegrating tablet 4 mg oxytocin (Pitocin) 30 units in 500 mL infusion (2 sources) Start: 04-12-2022 End: 04-12-2022 oxytocin (Pitocin) 30 units in 500 mL infusion oxytocin (Pitocin) 30 units infusion - Pyxis ADS Override Pull (2 sources) Start: 04-12-2022 End: 04-12-2022 oxytocin (Pitocin) 30 units infusion - Pyxis ADS Override Pull vitamin tablet (2 sources) Start: 04-13-2022 End: 04-15-2022 take 1 tablet by mouth once daily 1 tablet, Oral, Daily, First dose on Mon04/13/22 at 0900, Begin when normal bowel activity resumes. simethicone 80 mg chewable tablet (2 sources) Start: 04-12-2022 End: 04-15-2022 take 1 tablet by mouth every six hours as needed 80 mg, Oral, Every 6 hours PRN, flatulence, cramping, Starting on Mon04/12/22 at 2314, 5 ml sodium chloride 9 mg/ml injection (6 sources) Start: 04-12-2022 End: 04-15-2022 take 1 dose intravenously twice daily 5-40 mL, IntraVENous, Every 12 hours scheduled (2 times per day), First dose on Mon04/12/22 at 2315, or Line Patency: Peripheral IV = 5 mL; Midline or Central Line = 10 mL/lumen. &a mp;nbsp;If following IV push medication, administer flush at same rate as the IV push. Flush volume is determined by type of infusion therapy being given. &nbsp ;For non-viscous solutions use: Periphe ral IV = 5 mL Midline or Central Line = 10 mL/lumen &nb sp;For viscous solutions (i.e. blood components, parenteral nutrition, contrast media, or after obtaining blood sample) use: Periphe ral IV = 10 mL Midline or Central Line = 20 mL/lumen Start: 04-12-2022 End: 04-15-2022 5-250 mL/hr, IntraVENous, UT N, if patient receiving piggyback infusions and maintenance fluids are not ordered OR KVO fluids to protect IV site / prevent frequent line interruptions/ long duration, Starting on Mon04/12/22 at 2314, For piggyback infusion, administer at same rate as piggyback for a total of 25 mL. Enter 25 mL into dose field and piggyback rate into rate field of order. If piggyback is infusing at a rate less than 100 mL/hr, enter 25 mL into dose field and 100 mL/hr into rate field of order. For KVO fluids, enter rate of 20 mL/hr or less into rate field of order. Start: 04-12-2022 End: 04-15-2022 take 5-40 mL intravenously once as needed 5-40 mL, IntraVENous, PRN, line care, After every IV line use, Starting on Mon04/12/22 at 2314, or Line Patency: Peripheral IV = 5 mL; Midline or Central Line = 10 mL/lumen. If following IV push medication, administer flush at same rate as the IV push. Flush volume is determined by type of infusion therapy being given. For non-viscous solutions use: Peripheral IV = 5 mL Midline or Central Line = 10 mL/lumen For viscous solutions (i.e. blood components, parenteral nutrition, contrast media, or after obtaining blood sample) use: Peripheral IV = 10 mL Midline or Central Line = 20 mL/lumen Problems Active Problems Problem Classification Problem Date Documented Date Episodic/Chronic Anxiety disorders (6 sources) Anxiety disorder; Translations: [Anxiety state, unspecified] Chronic Hemorrhage during ; abruptio placenta; placenta previa (6 sources) Threatened miscarriage in first trimester; Translations: [Threatened ] 10-28-2021 Episodic Hypertension complicating ; childbirth and the puerperium (12 sources) Severe pre-eclampsia, third trimester; Translations: [Severe pre-eclampsia] Onset: 04-12-2022 Episodic Other complications of (16 sources) Anemia in mother complicating , childbirth AND/OR puerperium; Translations: [Anemia complicating , third trimester] Onset: 08-21-2024 08-21-2024 Chronic Other complications of (1 source) Anemia complicating , third trimester; Translations: [Anemia complicating , third trimester (HCC)] Onset: 08-21-2024 Chronic Other complications of (20 sources) High risk ; Translations: [Supervision of high risk , unspecified, first trimester] Onset: 03-28-2024 03-28-2024 Episodic Other complications of (20 sources) H/O: premature delivery; Translations: [Supervision of other high risk pregnancies, unspecified trimester] Onset: 03-28-2024 03-28-2024 Episodic Other complications of (1 source) Supervision of high risk , unspecified, third trimester; Translations: [Supervision of high risk in third trimester (HCC)] Onset: 10-16-2024 Episodic Other and delivery including normal (1 source) Normal ; Translations: [Encounter for supervision of normal first , second trimester] 06-24-2024 Episodic Other screening for suspected conditions (not mental disorders or infectious disease) (3 sources) Patient encounter status; Translations: [Encounter for screening for malformations] 05-14-2024 Episodic Other skin disorders (6 sources) Loss of hair; Translations: [Alopecia, unspecified] Episodic Other skin disorders (3 sources) Hyperhidrosis; 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] Episodic Other skin disorders (1 source) Nonscarring hair loss, unspecified; Translations: [Nonscarring hair loss, unspecified] Onset: 04-23-2024 Episodic Previous (19 sources) Maternal request for obstetric intervention; Translations: [Maternal care for unspecified type scar from previous delivery] Onset: 08-21-2024 08-21-2024 Episodic Residual codes; unclassified (1 source) Gestation period, 7 weeks; Translations: [Less than 8 weeks gestation of ] 03-28-2024 Episodic Residual codes; unclassified (20 sources) History of pre-eclampsia; Translations: [Personal history of other complications of , childbirth and the puerperium] Onset: 03-28-2024 03-28-2024 Episodic Residual codes; unclassified (2 sources) Gestation period, 14 weeks; Translations: [14 weeks gestation of ] 05-14-2024 Episodic Residual codes; unclassified (2 sources) Gestation period, 20 weeks; Translations: [20 weeks gestation of ] 06-24-2024 Episodic Residual codes; unclassified (1 source) Gestation period, 24 weeks; Translations: [24 weeks gestation of ] 07-24-2024 Episodic Residual codes; unclassified (4 sources) Gestation period, 28 weeks; Translations: [28 weeks gestation of ] 08-21-2024 Episodic Residual codes; unclassified (1 source) Gestation period, 30 weeks; Translations: [30 weeks gestation of ] 09-04-2024 Episodic Residual codes; unclassified (1 source) Gestation period, 32 weeks; Translations: [32 weeks gestation of ] 09-18-2024 Episodic Residual codes; unclassified (1 source) Gestation period, 34 weeks; Translations: [34 weeks gestation of ] 10-02-2024 Episodic Residual codes; unclassified (1 source) Gestation period, 36 weeks; Translations: [36 weeks gestation of ] 10-15-2024 Episodic Residual codes; unclassified (1 source) Gestation period, 37 weeks; Translations: [37 weeks gestation of ] 10-23-2024 Episodic Residual codes; unclassified (1 source) 38 weeks gestation of ; Translations: [38 weeks gestation of (HCC)] Onset: 10-30-2024 Episodic Residual codes; unclassified (1 source) 37 weeks gestation of ; Translations: [37 weeks gestation of (HCC)] Onset: 10-23-2024 Episodic Residual codes; unclassified (1 source) 36 weeks gestation of ; Translations: [36 weeks gestation of (HCC)] Onset: 10-15-2024 Episodic Residual codes; unclassified (1 source) 28 weeks gestation of ; Translations: [28 weeks gestation of (HCC)] Onset: 10-15-2024 Episodic Residual codes; unclassified (1 source) 34 weeks gestation of ; Translations: [34 weeks gestation of (HCC)] Onset: 10-02-2024 Episodic Residual codes; unclassified (1 source) 32 weeks gestation of ; Translations: [32 weeks gestation of ([facility])] Onset: 09-18-2024 Episodic Residual codes; unclassified (1 source) 30 weeks gestation of ; Translations: [30 weeks gestation of ([facility])] Onset: 09-04-2024 Episodic Residual codes; unclassified (1 source) 24 weeks gestation of ; Translations: [24 weeks gestation of ([facility])] Onset: 08-21-2024 Episodic Residual codes; unclassified (1 source) Gestation period, 39 weeks; Translations: [39 weeks gestation of ] 11-05-2024 Episodic Past or Other Problems Problem Classification Problem Date Documented Date Episodic/Chronic Cancer of cervix (20 sources) Atypical squamous cells of undetermined significance on cervical Papanicolaou smear; Translations: [Atypical squamous cells of undetermined significance on cytologic smear of cervix (ASC-US)] Onset: 04-03-2024 04-03-2024 Episodic Other complications of (20 sources) Diseases of the digestive system complicating , first trimester; Translations: [Other current conditions classifiable elsewhere of mother, antepartum condition or complication] Onset: 03-28-2024 Resolved: 05-14-2024 03-28-2024 Episodic Other complications of (20 sources) Heartburn; Translations: [Other specified related conditions, first trimester] Onset: 03-28-2024 Resolved: 05-14-2024 03-28-2024 Episodic Other complications of (2 sources) Supervision of other high risk pregnancies, unspecified trimester; Translations: [History of delivery, currently ([facility])] Onset: 05-13-2024 Episodic Other complications of (1 source) Supervision of high risk , unspecified, second trimester; Translations: [Supervision of high risk in second trimester ([facility])] Onset: 07-24-2024 Episodic Other complications of (1 source) Supervision of high risk , unspecified, first trimester; Translations: [Encounter for supervision of high risk in first trimester, antepartum] Onset: 03-28-2024 Episodic Other eye disorders (20 sources) Bilateral vitreous floaters; Translations: [Other vitreous opacities, bilateral] Onset: 05-04-2015 Resolved: 05-14-2024 05-04-2015 Chronic Other eye disorders (20 sources) Chalazion of right upper eyelid; Translations: [Chalazion right upper eyelid] Onset: 05-04-2015 Resolved: 05-14-2024 05-04-2015 Episodic Other eye disorders (20 sources) Meibomian gland dysfunction of bilateral eyes; Translations: [Meibomian gland dysfunction right eye, upper and lower eyelids] Onset: 05-04-2015 Resolved: 05-14-2024 05-04-2015 Episodic Residual codes; unclassified (3 sources) History of uterine scar from previous surgery; Translations: [History of uterine scar from previous surgery] Onset: 04-12-2022 Episodic Residual codes; unclassified (1 source) Personal history of other complications of , childbirth and the puerperium; Translations: [History of pre-eclampsia] Onset: 05-13-2024 Episodic Residual codes; unclassified (2 sources) Less than 8 weeks gestation of ; Translations: [7 weeks gestation of (HCC)] Onset: 05-14-2024 Episodic Results Test Name Value Interpretation Reference Range Facility Examination level ultrasound on 10-15-2024 [facility] Radiology Study observation (narrative) [facility] ROUTINE, GROUP B ST REPTOCOCCUS BY PCRon 10-15-2024 ROUTINE, GROUP B STREPTOCOCCUS BY PCR Not detected Normal [facility] Comment on above: Performed By: #### G BPCR ####[facility] LABCLIA [id number] [place] [address] [place] URINE OB DIP B/Oon Glucose Ql (U) Negative Neg mg/dL [facility] Protein.monoclonal (U) [Mass/Vol] Negative Neg mg/dL [facility] CBC panel Auto (Bld)on 10-02 Erythrocyte distribution width (RBC) [Ratio] 12.7 % Normal 11.5-15.0 [facility] Comment on above: Order Comment: Speci men Type: BLOOD SPECIMENOrdering Facility: [facility] Address: [address] [place] [address] Performed By: #### 5 8410-2 ####[facility] [id number] [place] [address] [place] Hematocrit (Bld) [Volume fraction] 30.6 % Low 36.0-46.0 [facility] Comment on above: Order Comment: Speci men Type: BLOOD SPECIMENOrdering Facility: [facility] Address: [address] [place] [address] Performed By: #### 5 8410-2 ####[facility] SIVAKUMARWLUISLIA [id number] [place] [address] [place] Hemoglobin (Bld) [Mass/Vol] 10.2 g/dL Low 11.5-15.5 [facility] Comment on above: Order Comment: Speci men Type: BLOOD SPECIMENOrdering Facility: [facility] Address: [address] [place] [address] Performed By: #### 5 8410-2 ####[facility]ISLIA [id number] [place] [address] [place] MCH (RBC) [Entitic mass] 29.1 pg Normal 26.0-34.0 [facility] Comment on above: Order Comment: Speci men Type: BLOOD SPECIMENOrdering Facility: [facility] Address: [address] [place] [address] Performed By: #### 5 8410-2 ####[facility] CLINICWLUISLIA [id number] [place] [address] [place] MCHC (RBC) [Mass/Vol] 33.3 g/dL Normal 30.5-36.0 [facility] Comment on above: Order Comment: Speci men Type: BLOOD SPECIMENOrdering Facility: [facility] Address: [address] [place] [address] Performed By: #### 5 8410-2 ####[facility] [id number] [place] [address] [place] MCV (RBC) [Entitic vol] 87.4 fL Normal 80.0-100.0 [facility] Comment on above: Order Comment: Speci men Type: BLOOD SPECIMENOrdering Facility: [facility] Address: [address] [place] [address] Performed By: #### 5 8410-2 ####[facility] [id number] [place] [address] [place] Nucleated RBC (Bld) [#/Vol] 10*3/uL Normal <0.01 [facility] Comment on above: Order Comment: Speci men Type: BLOOD SPECIMENOrdering Facility: [facility] Address: [address] [place] [address] Performed By: #### 5 8410-2 ####[facility] [id number] [place] [address] [place] Platelet mean volume (Bld) [Entitic vol] 9.9 fL Normal 9.0-12.7 [facility] Comment on above: Order Comment: Speci men Type: BLOOD SPECIMENOrdering Facility: [facility] Address: [address] [place] [address] Performed By: #### 5 8410-2 ####[facility] [id number] [place] [address] [place] Platelets (Bld) [#/Vol] 226 10*3/uL Normal 150-400 [facility] Comment on above: Order Comment: Speci men Type: BLOOD SPECIMENOrdering Facility: [facility] Address: [address] [place] [address] Performed By: #### 5 8410-2 ####[facility] [id number] [place] [address] [place] RBC (Bld) [#/Vol] 3.50 10*6/uL Low 3.90-5.20 [facility] Comment on above: Order Comment: Speci men Type: BLOOD SPECIMENOrdering Facility: [facility] Address: [address] [place] [address] Performed By: #### 5 8410-2 ####[facility] PRIYA CHINCLIA [id number] [place] [address] [place] WBC (Bld) [#/Vol] 11.08 10*3/uL High 3.70-11.00 [facility] Comment on above: Order Comment: Speci men Type: BLOOD SPECIMENOrdering Facility: [facility] Address: [address] [place] [address] Performed By: #### 5 8410-2 ####[facility] [id number] [place] [address] [place] [facility] Examination level ultrasound on 09-19-2024 [facility] Examination level ultrasound on 09-18-2024 Radiology Study observation (narrative) [facility] CBC panel Auto (Bld)on 08-21 Erythrocyte distribution width (RBC) [Ratio] 12.3 % Normal 11.5-15.0 [facility] Comment on above: Order Comment: Speci men Type: BLOOD SPECIMENOrdering Facility: [facility] Address: [address] [place] [address] Performed By: #### 5 8410-2 ####[facility] SIVAKUMARCHIEFLANDNCRICHA [id number] [place] [address] [place] Hematocrit (Bld) [Volume fraction] 31.6 % Low 36.0-46.0 [facility] Comment on above: Order Comment: Speci men Type: BLOOD SPECIMENOrdering Facility: [facility] Address: [address] [place] [address] Performed By: #### 5 8410-2 ####[facility]ENTERNCLIA [id number] [place] [address] [place] Hemoglobin (Bld) [Mass/Vol] 10.6 g/dL Low 11.5-15.5 [facility] Comment on above: Order Comment: Speci men Type: BLOOD SPECIMENOrdering Facility: [facility] Address: [address] [place] [address] Performed By: #### 5 8410-2 ####[facility] [id number] [place] [address] [place] MCH (RBC) [Entitic mass] 30.1 pg Normal 26.0-34.0 [facility] Comment on above: Order Comment: Speci men Type: BLOOD SPECIMENOrdering Facility: [facility] Address: [address] [place] [address] Performed By: #### 5 8410-2 ####[facility] [id number] [place] [address] [place] MCHC (RBC) [Mass/Vol] 33.5 g/dL Normal 30.5-36.0 [facility] Comment on above: Order Comment: Speci men Type: BLOOD SPECIMENOrdering Facility: [facility] Address: [address] [place] [address] Performed By: #### 5 8410-2 ####[facility] [id number] [place] [address] [place] MCV (RBC) [Entitic vol] 89.8 fL Normal 80.0-100.0 C [facility] Comment on above: Order Comment: Speci men Type: BLOOD SPECIMENOrdering Facility: [facility] Address: [address] [place] [address] Performed By: #### 5 8410-2 ####[facility] [id number] [place] [address] [place] Nucleated RBC (Bld) [#/Vol] 10*3/uL Normal <0.01 [facility] Comment on above: Order Comment: Speci men Type: BLOOD SPECIMENOrdering Facility: [facility] Address: [address] [place] [address] Performed By: #### 5 8410-2 ####[facility] NAIDA [id number] [place] [address] [place] Platelet mean volume (Bld) [Entitic vol] 9.3 fL Normal 9.0-12.7 [facility] Comment on above: Order Comment: Speci men Type: BLOOD SPECIMENOrdering Facility: [facility] Address: [address] [place] [address] Performed By: #### 5 8410-2 ####[facility] SIVAKUMARCHIEFLANDDEV [id number] [place] [address] [place] Platelets (Bld) [#/Vol] 272 10*3/uL Normal 150-400 [facility] Comment on above: Order Comment: Speci men Type: BLOOD SPECIMENOrdering Facility: [facility] Address: [address] [place] [address] Performed By: #### 5 8410-2 ####[facility] SIVAKUMARCHIEFLANDNCRICHA [id number] [place] [address] [place] RBC (Bld) [#/Vol] 3.52 10*6/uL Low 3.90-5.20 [facility] Comment on above: Order Comment: Speci men Type: BLOOD SPECIMENOrdering Facility: [facility] Address: [address] [place] [address] Performed By: #### 5 8410-2 ####[facility] [id number] [place] [address] [place] WBC (Bld) [#/Vol] 10.84 10*3/uL Normal 3.70-11.00 [facility] Comment on above: Order Comment: Speci men Type: BLOOD SPECIMENOrdering Facility: [facility] Address: [address] [place] [address] [place] [address] Performed By: #### 5 8410-2 ####[facility] PRIYA PASCAL [id number] [place] [id number] [facility] Carson 08-21-2024 CNPN Telephone (OBGYWM) -------- KIERA ARVIZU ([id number]) 1 F Date Time Provider Department 08/21/24 CAREY FROST During your visit today, we recorded the following information about you: Leah Schreiber RN 08/21/2024 11:11 AM Signed Received request to assist patient in scheduling growth US at 32 weeks. Order placed. Patient needs financial clearance. I have placed a hold time for 09/18 at 2:30 for patient. Please schedule once approved. Leah Schreiber RN 08/29/2024 3:04 PM Signed Message sent to Monica Lopez to ask if patient can be authorized, Allergies As of Date: 08/21/2024 (No Known Allergies) Date Reviewed: 08/21/2024 Reviewed by: Manny Carney MA - Fully Assessed Reason for Visit: Appointment [186] Prescriptions as of 09/03/2024 - acetaminophen (TYLENOL ORAL) Take 500 mg by mouth as needed. - ferrous sulfate (IRON) 325 mg (65 mg iron) tablet Take 325 mg by mouth once daily. - aspirin, enteric coated (ECOTRIN LOW STRENGTH) 81 mg EC tablet Take 1 tablet by mouth once daily. - 25/iron/folate 6/dha (PRENA1 ORAL) Take 1 tablet by mouth once daily. Problem List As Of Date 08/21/2024 Noted Resolved Chalazion of right upper eyelid [H00.11] 05/04/2015 05/14/2024 Meibomian gland dysfunction (MGD), bilateral, b*05/04/2015 05/14/2024 Vitreous floaters of both eyes [H43.393] 05/04/2015 05/14/2024 History of section [Z98.891] 03/28/2024 Supervision of high risk in second tr*03/28/2024 History of pre-eclampsia [Z87.59] 03/28/2024 History of delivery, currently *03/28/2024 Constipation during in first trimeste*03/28/2024 05/14/2024 Heartburn during in first trimester [*03/28/2024 05/14/2024 Atypical squamous cells of undetermined signifi*04/03/2024 Desires (vaginal after ) tri*08/21/2024 Anemia complicating , third trimester *08/21/2024 Encounter Status:Closed by TYRELL KIDD on 09/03/24 Normal [facility] GESTATIONAL GLUCOSE SCREEN, 1-HOUR, 50 GRAM, NON-FASTINGon 08-21-2024 Glucose [Mass/Vol] 122 mg/dL Normal 74-134 [facility] Comment on above: Order Comment: Speci my Type: BLOOD SPECIMENOrdering Facility: [facility] Address: [address] [place] [address] Result Comment: [facility] Congress of Obstetricians and Gynecologists (Mohsen/Blessing) guidelines state a gestational diabetes mellitus positive screen is made, in women not previously diagnosed with overt diabetes, when the 1 hr plasma glucose level is equal to or above 140 mg/dL. The [facility] Photographic Intelligence Officer and [facility] [place] recommends a 135 mg/dL cutoff. Performed By: #### G LTGST ####[facility] [id number] [place] [address] [place] Reagin and Treponema pallidu m IgG and IgM [Interp]on 08-21-2024 T. pallidum IgG+IgM IA Ql (S) Non-Reactive Normal Nonreactive [facility] Comment on above: Order Comment: Speci men Type: BLOOD SPECIMENOrdering Facility: [facility] Address: [address] [place] [id number] Performed By: #### 7 3752-8 ####[facility] LABCLIA [id number] [place] [id number] [place] Reagin+T pallidum IgG+IgM Se rPl-Impon 08-21-2024 Reagin and Treponema pallidum IgG and IgM [Interp] Cannot exclude recent Treponemal infection if specimen collected within 7-10 days after appearance of suspect lesions or 2-3 weeks after an exposure. Clinical correlation is required. Normal [facility] Comment on above: Order Comment: Speci men Type: BLOOD SPECIMENOrdering Facility: [facility] Address: [address] [place] [address] Performed By: #### 7 3752-8 ####[facility] LABCLIA [id number] [address] [address] [place] Examination level ultrasound on 06-24-2024 Indication Standard anatomic survey History of preeclampsia Impression REMOTE READ The patient is referred for a standard anatomic survey. - Single, live, intrauterine . - biometry is consistent with the established gestational age. - No malformations were visualized on a complete standard anatomic survey. - The amniotic fluid volume is normal amount. - The placenta is posterior, fundal. - The Transabdominal cervical length measures 32.3 mm with no evidence of funneling or other dynamic changes. - Not all structural malformations can be detected by ultrasound examination. Recommendations Additional follow-up as clinically indicated. Maternal Assessment Height 165 cm Height (ft) 5 ft Height (in) 5 in Physical Exam Initial weight (lb) 134 lb Initial BMI 22.30 kg/m Maternal assessment other: 2 Para 1 Method Transabdominal ultrasound examination. View: Adequate visualization Lui . Number of fetuses: 1 Dating LMP on: 02/04/2024 GA by LMP 20 w + 1 d EDI by LMP: 11/10/2024 GA by prior assessment 20 w + 1 d EDI by prior assessment: 11/10/2024 Ultrasound examination on: 06/24/2024 GA by U/S based upon: AC, BPD, Femur, HC GA by U/S 21 w + 3 d EDI by U/S: 11/01/2024 Assigned: based on stated EDI, selected on 05/14/2024 Assigned GA 20 w + 1 d Assigned EDI: 11/10/2024 General Evaluation Cardiac activity present. FHR 141 bpm. movements: present. Presentation: cephalic Placenta: Placental site: posterior, fundal Umbilical cord: Cord vessels: 3 vessel cord Amniotic fluid: Amount of AF: normal amount. MVP 6.2 cm Growth Overview Exam date GA BPD (mm) HC (mm) AC (mm) FL (mm) HL (mm) EFW (g) 05/14/2024 14w 2d 29.1 85% 113.9 74% 93.8 90% 15.4 59% 06/24/2024 20w 1d 49.8 84% 185.6 73% 171.3 94% 35.5 92% 32.4 79% 434 98% Biometry Standard BPD 49.8 mm 21w 1d 84% Hadlock OFD 65.9 mm 20w 5d 94% Nicolaides HC 185.6 mm 20w 6d 73% Tom Cerebellum tr 22.0 mm 20w 4d 87% Hill Nuchal fold 4.9 mm AC 171.3 mm 22w 1d 94% Hadlock Femur 35.5 mm 21w 3d 92% Tom Humerus 32.4 mm 20w 6d 79% Tom EFW 434 g 21w 3d 98% Hadlock EFW (lb) 0 lb EFW (oz) 15 oz EFW by: Hadlock (HC-AC-FL) Extended Solar Project Engineer 4.5 mm CM 4.3 mm 27% Nicolaides Extremities / Bony Struc FL / HC 0.19 61% Hadlock Other Structures FHR 141 bpm Anatomy Cranium: normal Lateral ventricles: normal Choroid plexus: normal Midline falx: normal Cavum septi pellucidi: normal Cerebellum: normal Cisterna magna: normal Head / Neck Vermis: Normal but not required for a standard anatomy exam Neck: Normal but not required for a standard anatomy exam Nuchal fold: Normal but not required for a standard anatomy exam Lips: normal Profile: Normal but not required for a standard anatomy exam Nose: Normal but not required for a standard anatomy exam Face Maxilla: Normal but not required for a standard anatomy exam Mandible: Normal but not required for a standard anatomy exam Orbits: Normal but not required for a standard anatomy exam Lens: Normal but not required for a standard anatomy exam 4-chamber view: normal RVOT view: normal LVOT view: normal 3-vessel view: normal 1-sqcimt-tafoexe view: normal Heart / Thorax Situs: situs solitus (normal) Aortic arch view: Normal but not required for a standard anatomy exam SVC: Normal but not required for a standard anatomy exam IVC: Normal but not required for a standard anatomy exam Cardiac axis: normal Rt lung: Normal but not required for a standard anatomy exam Lt lung: Normal but not required for a standard anatomy exam Diaphragm: Normal but not required for a standard anatomy exam Cord insertion: normal Stomach: normal Kidneys: normal Bladder: normal Genitals: normal Abdomen Abdom. wall: normal Cervical spine: normal Thoracic spine: normal Lumbar spine: normal Sacral spine: normal Arms: normal Legs: normal Rt upper arm: normal Rt forearm: normal Rt hand: normal Rt fingers: normal Lt upper arm: normal Lt forearm: normal Lt hand: normal Lt fingers: normal Rt upper leg: normal Rt lower leg: normal Rt foot: normal Lt upper leg: normal Lt lower leg: normal Lt foot: normal sex: female Wants to know sex: yes Maternal Structures Uterus / Cervix Uterus: Visualized Cervix: Visualized Approach: Transabdominal Cervical length 32.3 mm Other: Patient declined transvaginal ultrasound for cervical length. Ovaries / Tubes / Adnexa Rt ovary: Visualized Lt ovary: Visualized Performed By: Lyric Silva RDMS, RVT Read By: Darnell Blank M.D. MATERNAL MEDICINE [facility] Radiology Study observation (narrative) [facility]by zamudio [facility] [place] 05-20-2024 SHIRAZ Telephone (ALYIAWM) -------- KIERA ARVIZU ([id number]) 1 F Date Time Provider Department 05/20/24 MIK MENDOZA During your visit today, we recorded the following information about you: Katherine Philip, RN 05/20/2024 2:29 PM Signed 15w1d Patient called to inquire about her results of [id number]. Advised that provider has not reviewed her labs as of yet. Notified of baby's gender per patient and 's request. Katherine Philip RN Allergies As of Date: 05/20/2024 (No Known Allergies) Date Reviewed: 03/28/2024 Reviewed by: Mik Mendoza APRN.BOX TRUCK DRIVER - Fully Assessed Reason for Visit: Question (OB Question) [1552] Prescriptions as of 05/20/2024 - acetaminophen (TYLENOL ORAL) Take 500 mg by mouth as needed. - ferrous sulfate (IRON) 325 mg (65 mg iron) tablet Take 325 mg by mouth once daily. - aspirin, enteric coated (ECOTRIN LOW STRENGTH) 81 mg EC tablet Take 1 tablet by mouth once daily. - 25/iron/folate 6/dha (PRENA1 ORAL) Take 1 tablet by mouth once daily. Problem List As Of Date 05/20/2024 Noted Resolved Chalazion of right upper eyelid [H00.11] 05/04/2015 05/14/2024 Meibomian gland dysfunction (MGD), bilateral, b*05/04/2015 05/14/2024 Vitreous floaters of both eyes [H43.393] 05/04/2015 05/14/2024 History of section [Z98.891] 03/28/2024 Encounter for supervision of high risk pregnanc*03/28/2024 History of pre-eclampsia [Z87.59] 03/28/2024 History of delivery, currently *03/28/2024 Constipation during in first trimeste*03/28/2024 05/14/2024 Heartburn during in first trimester [*03/28/2024 05/14/2024 Atypical squamous cells of undetermined signifi*04/03/2024 Encounter Status:Closed by KATHERINE PHILIP on 05/20/24 Normal [facility] CBC W Auto Differential pane l (Bld)on 05-14-2024 Basophils (Bld) [#/Vol] 0.07 10*3/uL Normal <0.11 [facility] Comment on above: Order Comment: Speci men Type: BLOOD SPECIMENOrdering Facility: [facility] Address: [address] [place] [address] Performed By: #### 5 7021-8 ####[facility] MILLWNCLIA [id number] [place] [address] [place] Basophils/100 WBC (Bld) 0.7 % Normal [facility] Comment on above: Order Comment: Speci men Type: BLOOD SPECIMENOrdering Facility: [facility] Address: [address] [place] [address] Performed By: #### 5 7021-8 ####[facility]IC[facility]CL[facility] [id number] [place] [address] [place] Differential cell count method Nom (Bld) Auto Normal [facility] Comment on above: Order Comment: Speci men Type: BLOOD SPECIMENOrdering Facility: [facility] Address: [address] [place] [address] Performed By: #### 5 7021-8 ####[facility] [id number] [place] [address] [place] Eosinophils (Bld) [#/Vol] 0.63 10*3/uL High <0.46 [facility] Comment on above: Order Comment: Speci men Type: BLOOD SPECIMENOrdering Facility: [facility] Address: [address] [place] [address] Performed By: #### 5 7021-8 ####[facility] MILLTOWNCLIA [id number] [place] [address] [place] Eosinophils/100 WBC (Bld) 5.9 % Normal [facility] Comment on above: Order Comment: Speci men Type: BLOOD SPECIMENOrdering Facility: [facility] Address: [address] [place] [address] Performed By: #### 5 7021-8 ####[facility] MILLWNCLIA [id number] [place] [address] [place] Erythrocyte distribution width (RBC) [Ratio] 12.8 % Normal 11.5-15.0 [facility] Comment on above: Order Comment: Speci men Type: BLOOD SPECIMENOrdering Facility: [facility] Address: [address] [place] [address] Performed By: #### 5 7021-8 ####[facility] [id number] [place] [address] [place] Hematocrit (Bld) [Volume fraction] 35.2 % Low 36.0-46.0 [facility] Comment on above: Order Comment: Speci men Type: BLOOD SPECIMENOrdering Facility: [facility] Address: [address] [place] [address] Performed By: #### 5 7021-8 ####[facility]ENTERNCCHELSIE [id number] [place] [address] [place] Hemoglobin (Bld) [Mass/Vol] 12.1 g/dL Normal 11.5-15.5 [facility] Comment on above: Order Comment: Speci men Type: BLOOD SPECIMENOrdering Facility: [facility] Address: [address] [place] [address] Performed By: #### 5 7021-8 ####[facility] CENTERLUISLIMelanie [id number] [place] [address] [place] Immature granulocytes (Bld) [#/Vol] 0.05 10*3/uL Normal <0.10 [facility] Comment on above: Order Comment: Speci men Type: BLOOD SPECIMENOrdering Facility: [facility] Address: [address] [place] [address] Performed By: #### 5 7021-8 ####[facility]ENTERNCLIA [id number] [place] [address] [place] Immature granulocytes/100 WBC (Bld) 0.5 % Normal [facility] Comment on above: Order Comment: Speci men Type: BLOOD SPECIMENOrdering Facility: [facility] Address: [address] [place] [address] Performed By: #### 5 7021-8 ####[facility] SIVAKUMARZenyNCRICHA [id number] [place] [address] [place] Lymphocytes (Bld) [#/Vol] 2.16 10*3/uL Normal 1.00-4.00 [facility] Comment on above: Order Comment: Speci men Type: BLOOD SPECIMENOrdering Facility: [facility] Address: [address] [place] [address] Performed By: #### 5 7021-8 ####[facility] [id number] [place] [address] [place] Lymphocytes/100 WBC (Bld) 20.2 % Normal [facility] Comment on above: Order Comment: Speci men Type: BLOOD SPECIMENOrdering Facility: [facility] Address: [address] [place] [address] Performed By: #### 5 7021-8 ####[facility] [id number] [place] [address] [place] MCH (RBC) [Entitic mass] 30.4 pg Normal 26.0-34.0 [facility] Comment on above: Order Comment: Speci men Type: BLOOD SPECIMENOrdering Facility: [facility] Address: [address] [place] [address] Performed By: #### 5 7021-8 ####[facility]ENTERNCA [id number] [place] [address] [place] MCHC (RBC) [Mass/Vol] 34.4 g/dL Normal 30.5-36.0 [facility] Comment on above: Order Comment: Speci men Type: BLOOD SPECIMENOrdering Facility: [facility] Address: [address] [place] [address] Performed By: #### 5 7021-8 ####[facility] MILLWNCLIA [id number] [place] [address] [place] MCV (RBC) [Entitic vol] 88.4 fL Normal 80.0-100.0 C [facility] Comment on above: Order Comment: Speci men Type: BLOOD SPECIMENOrdering Facility: [facility] Address: [address] [place] [address] Performed By: #### 5 7021-8 ####[facility] ANDERSONLIA [id number] [place] [address] [place] Monocytes (Bld) [#/Vol] 0.47 10*3/uL Normal <0.87 [facility] Comment on above: Order Comment: Speci men Type: BLOOD SPECIMENOrdering Facility: [facility] Address: [address] [place] [address] Performed By: #### 5 7021-8 ####[facility] ANDERSONL[facility] [id number] [place] [address] [place] Monocytes/100 WBC (Bld) 4.4 % Normal C [facility] Comment on above: Order Comment: Speci men Type: BLOOD SPECIMENOrdering Facility: [facility] Address: [address] [place] [address] Performed By: #### 5 7021-8 ####[facility] ANDERSONLIA [id number] [place] [address] [place] Neutrophils (Bld) [#/Vol] 7.31 10*3/uL Normal 1.45-7.50 [facility] Comment on above: Order Comment: Speci men Type: BLOOD SPECIMENOrdering Facility: [facility] Address: [address] [place] [address] Performed By: #### 5 7021-8 ####[facility]ERSONL[facility] [id number] [place] [address] [place] Neutrophils/100 WBC (Bld) 68.3 % Normal [facility] Comment on above: Order Comment: Speci men Type: BLOOD SPECIMENOrdering Facility: [facility] Address: [address] [place] [address] Performed By: #### 5 7021-8 ####[facility] [id number] [place] [address] [place] Nucleated RBC (Bld) [#/Vol] 10*3/uL Normal <0.01 [facility] Comment on above: Order Comment: Speci men Type: BLOOD SPECIMENOrdering Facility: [facility] Address: [address] [place] [address] Performed By: #### 5 7021-8 ####[facility]ENTERNCLAKEVIEW [facility] [id number] [place] [address] [place] Nucleated RBC/100 WBC (Bld) [Ratio] 0.0 /100 WBC Normal [facility] Comment on above: Order Comment: Speci men Type: BLOOD SPECIMENOrdering Facility: [facility] Address: [address] [place] [address] Performed By: #### 5 7021-8 ####[facility] [id number] [place] [address] [place] Platelet mean volume (Bld) [Entitic vol] 9.5 fL Normal 9.0-12.7 [facility] Comment on above: Order Comment: Speci men Type: BLOOD SPECIMENOrdering Facility: [facility] Address: [address] [place] [address] Performed By: #### 5 7021-8 ####[facility] CENTERNCLI [id number] [place] [address] [place] Platelets (Bld) [#/Vol] 282 10*3/uL Normal 150-400 [facility] Comment on above: Order Comment: Speci men Type: BLOOD SPECIMENOrdering Facility: [facility] Address: [address] [place] [address] Performed By: #### 5 7021-8 ####[facility]ICWNCLIA [id number] [place] [address] [place] RBC (Bld) [#/Vol] 3.98 10*6/uL Normal 3.90-5.20 [facility] Comment on above: Order Comment: Speci men Type: BLOOD SPECIMENOrdering Facility: [facility] Address: [address] [place] [address] Performed By: #### 5 7021-8 ####[facility]ENTERNCLIA [id number] [place] [address] [place] WBC (Bld) [#/Vol] 10.69 10*3/uL Normal 3.70-11.00 [facility] Comment on above: Order Comment: Speci men Type: BLOOD SPECIMENOrdering Facility: [facility] Address: [address] [place] [address] Performed By: #### 5 7021-8 ####[facility]ENTERNCLIA [id number] [place] [address] [place] Comprehensive metabolic 2000 panelon 05-14-2024 Albumin [Mass/Vol] 4.1 g/dL Normal 3.9-4.9 [facility] Comment on above: Order Comment: Speci men Type: BLOOD SPECIMENOrdering Facility: [facility] Address: [address] [place] [address] Performed By: #### 2 4323-8 ####[facility]ENTERNCLIA [id number] [place] [address] [place] ALP [Catalytic activity/Vol] 45 U/L Normal 34-123 [facility] Comment on above: Order Comment: Speci men Type: BLOOD SPECIMENOrdering Facility: [facility] Address: [address] [place] [address] Performed By: #### 2 4323-8 ####[facility] PRIYA MILLTOWNCLIA [id number] [place] [address] [place] ALT [Catalytic activity/Vol] 6 U/L Low 7-38 [facility] Comment on above: Order Comment: Speci men Type: BLOOD SPECIMENOrdering Facility: [facility] Address: [address] [place] [address] Performed By: #### 2 4323-8 ####[facility] PRIYA MILLTOWNCLIA [id number] [place] [address] [place] Anion gap [Moles/Vol] 9 mmol/L Normal 8-15 [facility] Comment on above: Order Comment: Speci men Type: BLOOD SPECIMENOrdering Facility: [facility] Address: [address] [place] [address] Performed By: #### 2 4323-8 ####[facility] PRIYA MILLTOWNCLIA [id number] [place] [address] [place] AST [Catalytic activity/Vol] 13 U/L Normal 13-35 [facility] Comment on above: Order Comment: Speci men Type: BLOOD SPECIMENOrdering Facility: [facility] Address: [address] [place] [address] Performed By: #### 2 4323-8 ####[facility] PRIYA MILLTOWNCLIA [id number] [place] [address] [place] Bilirubin [Mass/Vol] 0.2 mg/dL Normal 0.2-1.3 [facility] Comment on above: Order Comment: Speci men Type: BLOOD SPECIMENOrdering Facility: [facility] Address: [address] [place] [address] Performed By: #### 2 4323-8 ####[facility] [id number] [place] [address] [place] Calcium [Mass/Vol] 9.3 mg/dL Normal 8.5-10.2 [facility] Comment on above: Order Comment: Speci men Type: BLOOD SPECIMENOrdering Facility: [facility] Address: [address] [place] [address] Performed By: #### 2 4323-8 ####[facility]IC[facility] [id number] [place] [address] [place] Chloride [Moles/Vol] 105 mmol/L Normal 98-107 [facility] Comment on above: Order Comment: Speci men Type: BLOOD SPECIMENOrdering Facility: [facility] Address: [address] [place] [address] Performed By: #### 2 4323-8 ####[facility]ERSON[facility] [id number] [place] [address] [place] CO2 [Moles/Vol] 22 mmol/L Normal 22-30 [facility] Comment on above: Order Comment: Speci men Type: BLOOD SPECIMENOrdering Facility: [facility] Address: [address] [place] [address] Performed By: #### 2 4323-8 ####[facility]ICWNCLIA [id number] [place] [address] [place] Creatinine [Mass/Vol] 0.64 mg/dL Normal 0.58-0.96 [facility] Comment on above: Order Comment: Speci men Type: BLOOD SPECIMENOrdering Facility: [facility] Address: [address] [place] [address] Performed By: #### 2 4323-8 ####[facility] [id number] [place] [address] [place] Creatinine and Glomerular filtration rate.predicted panel (S/P/Bld) 128 mL/min/1.73m??? Normal >=60 [facility] Comment on above: Order Comment: Salma pepe Type: BLOOD SPECIMENOrdering Facility: [facility] Address: [address] [place] [address] Result Comment: Kelly mated Glomerular Filtration Rate (eGFR) is calculated using the 2020 CKD-EPI creatinine equation. This equation utilizes serum creatinine, sex, and age as parameters. The creatinine assay has traceable calibration to isotope dilution-mass spectrometry. Refer to KDIGO guidelines for clinical interpretation. In patients with unstable renal function, e.g. those with acute kidney injury, the eGFR may not accurately reflect actual GFR. Performed By: #### 2 4323-8 ####[facility] [id number] [place] [address] [place] Glucose [Mass/Vol] 81 mg/dL Normal 74-99 [facility] Comment on above: Order Comment: Salma pepe Type: BLOOD SPECIMENOrdering Facility: [facility] Address: [address] [place] [address] Result Comment: The [place] Diabetes Association (ADA) provides guidance for cutoff values for fasting glucose and random glucose. The ADA defines fasting as no caloric intake for at least 8 hours. Fasting plasma glucose results between 100 to 125 mg/dL indicate increased risk for diabetes (prediabetes). Fasting plasma glucose results greater than or equal to 126 mg/dL meet the criteria for diagnosis of diabetes. In the absence of unequivocal hyperglycemia, results should be confirmed by repeat testing. In a patient with classic symptoms of hyperglycemia or hyperglycemic crisis, random plasma glucose results greater than or equal to 200 mg/dL meet the criteria for diagnosis of diabetes. Reference: Standards of Medical Care in Diabetes 2016, [place] Diabetes Association. Diabetes Care. 2016.39(Suppl 1). Performed By: #### 2 4323-8 ####[facility] [id number] [place] [address] [place] Potassium [Moles/Vol] 3.7 mmol/L Normal 3.7-5.1 [facility] Comment on above: Order Comment: Speci men Type: BLOOD SPECIMENOrdering Facility: [facility] Address: [address] [place] [address] Performed By: #### 2 4323-8 ####[facility] PRIYA MILLTOWNCLIA [id number] [place] [address] [place] Protein [Mass/Vol] 6.8 g/dL Normal 6.3-8.0 [facility] Comment on above: Order Comment: Speci men Type: BLOOD SPECIMENOrdering Facility: [facility] Address: [address] [place] [address] Performed By: #### 2 4323-8 ####[facility] MILLDAVIDWLUISLIA [id number] [place] [address] [place] Sodium [Moles/Vol] 136 mmol/L Normal 136-144 [facility] Comment on above: Order Comment: Speci men Type: BLOOD SPECIMENOrdering Facility: [facility] Address: [address] [place] [address] Performed By: #### 2 4323-8 ####[facility] MILLTOWNCLIA [id number] [place] [address] [place] Urea nitrogen [Mass/Vol] 12 mg/dL Normal 7-21 [facility] Comment on above: Order Comment: Speci men Type: BLOOD SPECIMENOrdering Facility: [facility] Address: [address] [place] [address] Performed By: #### 2 4323-8 ####[facility] MILLTOWNCLIA [id number] [place] [address] [place] nuchal translucency me asured by USon 05-14-2024 Indication First trimester anatomic survey History of preeclampsia Impression The patient is referred for a first trimester anatomy scan including nuchal translucency measurement as clinically indicated. - Single, live, intrauterine . - Regina rump length measurement and biometry are consistent with the established gestational age. - A qualitative screen of the nuchal translucency and other anatomic structures was unremarkable on first trimester anatomic assessment. - Not all structural malformations can be detected by ultrasound examination. Maternal Structures: Right Ovary: Size 36 mm x 33 mm x 31 mm Left Ovary: Size 29 mm x 29 mm x 20 mm Recommendations Return for anatomy ultrasound around 18-20 weeks Growth ultrasound at 32 weeks Maternal Assessment Height 165 cm Height (ft) 5 ft Height (in) 5 in Physical Exam Initial weight (lb) 134 lb Initial BMI 22.30 kg/m Maternal assessment other: 2 Para 1 Method Transabdominal ultrasound examination Lui . Number of fetuses: 1 Dating LMP on: 02/04/2024 GA by LMP 14 w + 2 d EDI by LMP: 11/10/2024 GA by prior assessment 14 w + 2 d EDI by prior assessment: 11/10/2024 Ultrasound examination on: 05/14/2024 GA by U/S based upon: AC, BPD, CRL, Femur, HC GA by U/S 15 w + 0 d EDI by U/S: 11/05/2024 Assigned: based on stated EDI, selected on 05/14/2024 Assigned GA 14 w + 2 d Assigned EDI: 11/10/2024 General Evaluation Cardiac activity present Placenta: posterior Cord vessels: 3 vessel cord Amniotic fluid: normal amount Biometry Standard FHR 142 bpm CRL 87.5 mm 14w 5d 70% Hadlock BPD 29.1 mm 15w 2d 85% Hadlock HC 113.9 mm 15w 0d 74% Tom AC 93.8 mm 15w 4d 90% Hadlock Femur 15.4 mm 14w 3d 59% Tom Extended OFD 41.0 mm 14w 5d 94% Nicolaides First Trimester Anatomy Calvarium: normal Falx cerebri: normal Choroid plexus: normal Profile: normal Nasal bone: normal Retronasal triangle: normal Maxilla: normal Mandible: normal Nuchal translucency: Unremarkable Situs: normal Cardiac position: normal Cardiac axis: normal 4-chamber view: visualized 4-chamber view with color: visualized [id number] view: suboptimal Abdominal cord insertion: normal Stomach: normal Kidneys: normal Bladder: normal Color doppler of perivesical umbilical arteries: normal Vertebral alignment: normal Arms: normal Hands: normal Legs: normal Feet: normal Maternal Structures Uterus / Cervix Uterus: Visualized Uterus length 123 mm Uterus width 110 mm Uterus height 114 mm Uterus Vol 807.3 cm Ovaries / Tubes / Adnexa Rt ovary: Visualized Rt ovary D1 36 mm Rt ovary D2 33 mm Rt ovary D3 31 mm Rt ovary Vol 19.0 cm Lt ovary: Visualized Lt ovary D1 29 mm Lt ovary D2 29 mm Lt ovary D3 20 mm Lt ovary Vol 8.8 cm Performed By: Lyric Silva, CAROL, RVT Read By: Darnell Blank M.D. MATERNAL MEDICINE [facility] Radiology Study observation (narrative) [facility] HBV surface Ag Ser Qlon 04-27 HBV surface Ag Ql (S) Negative Normal Negative [facility] Comment on above: Order Comment: Speci men Type: BLOOD SPECIMENOrdering Facility: [facility] Address: [address] [place] [address] Performed By: #### 5 195-3, 51066-3, 49093-0 ####[facility] LABCLIA [id number] [place] [address] [place] HCV Ab Ser Qlon 05-14-2024 HCV Ab Ql (S) Negative Normal Negative [facility] Comment on above: Order Comment: Speci men Type: BLOOD SPECIMENOrdering Facility: [facility] Address: [address] [place] [address] Result Comment: The result suggests no evidence of active infection with Hepatitis C virus. Should recent infection be suspected, repeat testing may be considered 4-6 weeks after this draw. Performed By: #### 1 6128-1 ####[facility] LABCLIA [id number] [place] [address] [place] HIV 1+2 Ab IA Qlon HIV 1 and 2 Ab IA.rapid Nom (S/P/Bld) Normal [facility] Comment on above: Order Comment: Speci men Type: BLOOD SPECIMENOrdering Facility: [facility] Address: [address] [place] [address] Result Comment: Test not indicated. Performed By: #### 5 195-3, 98682-6, 57028-8 ####[facility] LABCLIA [id number] [place] [address] [place] HIV 1+2 Ab+HIV1 p24 Ag IA Ql Non-Reactive Normal Nonreactive [facility] Comment on above: Order Comment: Speci men Type: BLOOD SPECIMENOrdering Facility: [facility] Address: [address] [place] [address] Performed By: #### 5 195-3, 76261-5, 47796-8 ####[facility] LABIA [id number] [place] [address] [place] HIV immunoassay testing algorithm interpretation (S/P/Bld) [Interp] Normal [facility] Comment on above: Order Comment: Speci men Type: BLOOD SPECIMENOrdering Facility: [facility] Address: [address] [place] [address] Result Comment: No e vidence of HIV-1 or HIV-2 infection. Should recent infection be suspected, repeat testing may be considered 2-3 weeks after this draw. [place] Rev. Code 3701.243(E): This information has been disclosed to you from confidential records protected from disclosure by state law. ???You shall make no further disclosure of this information without the specific, written, and informed release of the individual to whom it pertains or as otherwise permitted by state law. A general authorization for the release of medical or other information is not sufficient for the purpose of the release of HIV test results or diagnoses. Performed By: #### 5 195-3, 78358-7, 33188-8 ####[facility] LABCLIA [id number] [place] [address] [place] HbA1c (Bld)on 05-14-2024 Average glucose Estimated from glycated hemoglobin (Bld) [Mass/Vol] 85 mg/dL Normal [facility] Comment on above: Order Comment: Speci men Type: BLOOD SPECIMENOrdering Facility: [facility] Address: [address] [place] [address] Result Comment: eAG: (Estimated average glucose) is a calculated value from HgbA1c and is patient financial representative of the average blood glucose level in the last 2-3 month period. Performed By: #### 5 5454-3 ####[facility] LABCLIA [id number] [place] [address] [place] HbA1c (Bld) [Mass fraction] 4.6 % Normal 4.3-5.6 [facility] Comment on above: Order Comment: Speci men Type: BLOOD SPECIMENOrdering Facility: [facility] Address: [address] [place] [address] Result Comment: Amer [place] Diabetes Association guidelines indicate that patients with HgbA1c in the range 5.7-6.4% are at increased risk for development of diabetes, and intervention by lifestyle modification may be beneficial. HgbA1c greater or equal to 6.5% is considered diagnostic of diabetes. Performed By: #### 5 5454-3 ####[facility] LABCLIA [id number] [place] [address] [place] [id number] PLUSon 05-14-2024 Cell-free DNA./Cell-free DNA.total Dosage of chromosome-specific cfDNA (cfDNA) [Molar fraction] 16% Normal [facility] Comment on above: Order Comment: Speci men Type: BLOOD SPECIMENOrdering Facility: [facility] Address: [address] [place] [address] Performed By: #### M AT21 ####[facility] LABCLIA [id number] [place] [address] Chr 13+18+21+X+Y aneuploidy Dosage of chromosome-specific cfDNA Ql (cfDNA) Negative Normal [facility] Comment on above: Order Comment: Speci men Type: BLOOD SPECIMENOrdering Facility: [facility] Address: [address] [place] [address] Performed By: #### M AT21 ####[facility] LABCLIA [id number] [place] [address] Chr 21 trisomy Dosage of chromosome-specific cfDNA Ql (cfDNA) Negative Normal [facility] Comment on above: Order Comment: Speci men Type: BLOOD SPECIMENOrdering Facility: [facility] Address: [address] [place] [address] Performed By: #### M AT21 ####[facility] LABCLIA [id number] [place] [address] Chr X and Y aneuploidy risk Sequencing Ql (cfDNA) [Interp] Not detected Normal [facility] Comment on above: Order Comment: Speci men Type: BLOOD SPECIMENOrdering Facility: [facility] Address: [address] [place] [address] Result Comment: Not Detected Not Detected Performed By: #### M AT21 ####[facility] LABCLIA [id number] [place] [address] Citation Miguelito (Reference lab test) Comment Normal [facility] Comment on above: Order Comment: Speci men Type: BLOOD SPECIMENOrdering Facility: [facility] Address: [address] [place] [address] Result Comment: 1. P arnoldo COONEY, et al. Soco Med. 2012;14(3):296-305. 2. Jama HOWARD et al. Prenat Diag. 2013;33(6):591-597. 3. Apple C, et al. Clin Chem. 2015 Apr;61(4):608-616. 4. Negin COONEY, et al. Soco Med. 2011;13(11):913-920. 5. ACOG/SMFM Practice Bulletin No. 226, Dec 2019. Performed By: #### M AT21 ####[facility] LABCLIA [id number] [place] [address] Gestational age Estimated from conception date Lui Normal [facility] Comment on above: Order Comment: Speci men Type: BLOOD SPECIMENOrdering Facility: [facility] Address: [address] [place] [address] Performed By: #### M AT21 ####[facility] LABCLIA [id number] [place] [address] GESTATIONALAGE AGE > OR = 9W Yes Normal [facility] Comment on above: Order Comment: Speci men Type: BLOOD SPECIMENOrdering Facility: [facility] Address: [address] [place] [address] Performed By: #### M AT21 ####[facility] LABCLIA [id number] [place] [address] Laboratory comment Miguelito (Report) Comment Normal [facility] Comment on above: Order Comment: Specgreyson pepe Type: BLOOD SPECIMENOrdering Facility: [facility] Address: [address] [place] [address] Result Comment: The MaterniT(R) 21 PLUS laboratory-developed test (LDT) analyzes circulating cell-free DNA from a maternal blood sample. This test is used for screening purposes and not diagnostic. Clinical correlation is recommended. Validation data on twin pregnancies is limited and the ability of this test to detect aneuploidy in higher multiple gestations has not yet been validated. Performed By: #### M AT21 ####[facility] LABCLIA [id number] [place] [id number] director of dietary name Nom (Provider) Comment Normal [facility] Comment on above: Order Comment: Speci my Type: BLOOD SPECIMENOrdering Facility: [facility] Address: [address] [place] [address] Result Comment: This specimen showed an expected representation of chromosome 21, 18 and 13 material. Clinical correlation is suggested. Comment Glen Salvador MD, PhD, Director, [employer] Performed By: #### M AT21 ####[facility] LABCLIA [id number] [place] [id number] LIMITATIONS OF THE TEST Comment Normal [facility] Comment on above: Order Comment: Salma pepe Type: BLOOD SPECIMENOrdering Facility: [facility] Address: [address] [place] [address] Result Comment: Jaimee dickerson the results of these tests are highly reliable, discordant results, including inaccurate sex prediction, may occur due to placental, maternal, or mosaicism or neoplasm; vanishing twin; prior maternal organ transplant; or other causes. These tests are screening tests and not diagnostic; they do not replace the accuracy and precision of diagnosis with CVS or amniocentesis. A patient with a positive test result should be referred for genetic counseling and offered invasive diagnosis for confirmation of test results.[5] The results of this testing, including the benefits and limitations, should be discussed with a qualified healthcare provider. management decisions, including termination of the , should not be based on the results of these tests alone. The healthcare provider is responsible for the use of this information in the management of their patient. Sex chromosomal aneuploidies are not reportable for known multiple gestations. A negative result does not ensure an unaffected nor does it exclude the possibility of other chromosomal abnormalities or defects which are not a part of these tests. An uninformative result may be reported, the causes of which may include, but are not limited to, insufficient sequencing coverage, noise or artifacts in the region, amplification or sequencing bias, or insufficient fraction. These tests are not intended to identify pregnancies at risk for neural tube defects or ventral wall defects. Testing for whole chromosome abnormalities (including sex chromosomes) and for subchromosomal abnormalities could lead to the potential discovery of both and maternal genomic abnormalities that could have major, minor, or no, clinical significance. Evaluating the significance of a positive or a non-reportable result may involve both invasive testing and additional studies on the mother. Such investigations may lead to a diagnosis of maternal chromosomal or subchromosomal abnormalities, which on occasion may be associated with benign or malignant maternal neoplasms. These tests may not accurately identify triploidy, balanced rearrangements, or the precise location of subchromosomal duplications or deletions; these may be detected by diagnosis with CVS or amniocentesis. The ability to report results may be impacted by maternal BMI, maternal weight, maternal systemic lupus erythematosus (SLE) and/or by certain pharmaceutical agents such as low molecular weight heparin (for example: Lovenox(R), Xaparin(R), Clexane(R) and Fragmin(R)). Performed By: #### M AT21 ####[facility] LABCLIA [id number] [facility] [place] [address] Monosomy X risk Dosage of chromosome-specific cfDNA Ql (Plasma cell-free+WBC DNA) [Interp] Not detected Normal [facility] Comment on above: Order Comment: Speci men Type: BLOOD SPECIMENOrdering Facility: [facility] Address: [address] [place] [address] Performed By: #### M AT21 ####[facility] LABCLIA [id number] [place] [address] NEGATIVE PREDICTIVE VALUE Note Normal [facility] Comment on above: Order Comment: Salma pepe Type: BLOOD SPECIMENOrdering Facility: [facility] Address: [address] [place] [address] Result Comment: The Negative Predictive Value (NPV) for trisomy 21, 18, and 13 is greater than 99%. The NPV for SCA and ESS cannot be calculated as SCA and ESS are only reported when an abnormality is detected. Performed By: #### M AT21 ####[facility] LABCLIA [id number] [place] [address] PERFORMANCE CHARACTERISTICS Note Normal [facility] Comment on above: Order Comment: Salma pepe Type: BLOOD SPECIMENOrdering Facility: [facility] Address: [address] [place] [address] Result Comment: ! Sex ! Accuracy: 99.4% ! ! ! ! Region (associated syndrome) ! Est. Sens# ! Est. Spec ! ! ! ! Trisomy 21 (Down Syndrome) ! 99.1% ! 99.9% ! ! ! ! Trisomy 18 (Frankel Syndrome) ! >99.9% ! 99.6% ! ! ! ! Trisomy 13 (Patau Syndrome) ! 91.7% ! 99.7% ! ! ! ! Sex Chromosome Aneuploidies## ! 96.2% ! 99.7% ! ! ! * As reported in [facility] database nstd37 [https://www.ncbi.nlm.nih.gov/dbvar/studies/nstd37/ ] # Estimated Sensitivity. Sensitivity estimated across the observed size distribution of each syndrome [per ISCA database nstd37] and across the range of fractions observed in routine clinical NIPT. Actual sensitivity can also be influenced by other factors such as the size of the event, total sequence counts, amplification bias, or sequence bias. ## Lui gestation only. Performed By: #### M AT21 ####[facility] LABBalluunIA [id number] [place] [address] POSITIVE PREDICTIVE VALUE N/A Normal [facility] Comment on above: Order Comment: Speci men Type: BLOOD SPECIMENOrdering Facility: [facility] Address: [address] [place] [address] Performed By: #### M AT21 ####[facility] LABCLIA [id number] [place] [address] Reference Lab Test Method Comment Normal [facility] Comment on above: Order Comment: Speci men Type: BLOOD SPECIMENOrdering Facility: [facility] Address: [address] [place], [place] [address] Result Comment: See Notes Circulating cell-free DNA was purified from the plasma component of maternal blood. The extracted DNA was then converted into a genomic DNA library for aneuploidy analysis of chromosomes 21, 18, and 13 via next generation sequencing.[1] Optional findings based on the test order include sex chromosome aneuploidy (SCA)[2], and enhanced sequencing series (ESS)[3], which will only be reported on as an additional finding when an abnormality is detected. SCA testing includes information on X and Y representation, while ESS testing includes deletions in selected regions (22q, 15q, 11q, 8q, 5p, 4p, 1p) and trisomy of chromosomes 16 and 22. Performed By: #### M AT21 ####[employer] [id number] [place] [address] Service comment (Unsp spec) [Interp] Comment Normal [facility] Comment on above: Order Comment: Speci men Type: BLOOD SPECIMENOrdering Facility: [facility] Address: [address] [place], [place] [address] Result Comment: See Notes [employer] is a subsidiary of [employer], using the brand [employer]. This test was developed and its performance characteristics determined by [employer]. It has not been cleared or approved by the Food and Drug Administration. This laboratory is certified under the Clinical Laboratory Improvement Amendments (CLIA) as qualified to perform high complexity clinical laboratory testing and accredited by the College of [place] Pathologists (CAP). If there is future clinical need for adding MaterniT GENOME testing, this specimen will be available until term. [facility] samples will not be retained beyond 60 days. [place] [facility] patients will have to send a new sample for re-sequencing ([facility] Test Code: 536360). Performed By: #### M AT21 ####[employer] LABBalluunIA [id number] [place] [address] Sex Dosage of chromosome-specific cfDNA Nom (cfDNA) Comment Normal [facility] Comment on above: Order Comment: Speci men Type: BLOOD SPECIMENOrdering Facility: [facility] Address: [address] [place] [address] Result Comment: Cons istent with Female Performed By: #### M AT21 ####[employer] LABCLIA [id number] [place] [address] Test performance information Miguelito (Unsp spec) Comment Normal [facility] Comment on above: Order Comment: Speci men Type: BLOOD SPECIMENOrdering Facility: [facility] Address: [address] [place] [address] Result Comment: The performance characteristics of the MaterniT(R) 21 PLUS laboratory-developed test (LDT) have been determined in a clinical validation study with women at increased risk for chromosomal aneuploidy.[1-4] Performed By: #### M AT21 ####[employer] LABCLIA [id number] [place] [address] Trisomy 13 risk Dosage of chromosome-specific cfDNA Ql (cfDNA) [Interp] Negative Normal [facility] Comment on above: Order Comment: Speci men Type: BLOOD SPECIMENOrdering Facility: [facility] Address: [address] [place] [address] Performed By: #### M AT21 ####[employer] LABCLIA [id number] [place] [address] Trisomy 18 risk Dosage of chromosome-specific cfDNA Ql (Plasma cell-free+WBC DNA) [Interp] Negative Normal [facility] Comment on above: Order Comment: Speci men Type: BLOOD SPECIMENOrdering Facility: [facility] Address: [address] [place] [address] Performed By: #### M AT21 ####[employer] LABCLIA [id number] [place] [address] Prot/Creat Uron 05-14-2024 Protein/Creatinine (U) [Mass ratio] 0.06 mg/mg Normal <0.15 [facility] Comment on above: Order Comment: Speci men Type: URINE SPECIMENOrdering Facility: [facility] Address: [address] [place] [address] Result Comment: Adul t Proteinuria Categories: <0.15 mg/mg is considered normal to mildly increased 0.15 - 0.50 mg/mg is considered moderately increased >0.50 mg/mg is considered severely increased KDIGO. (2013). KDIGO 2012 Clinical Practice Guideline for the Evaluation and Management of Chronic Kidney Disease. Official Journal of the International Society of Nephrology, 3(1), 1-150. Performed By: #### 2 890-2 ####[facility]ATORYCLIA [id number] [place] [id number] [place] Protein/Creatinine (U) [Mass ratio]on 05-14-2024 Creatinine (U) [Mass/Vol] 215.9 mg/dL Normal 20.0-300.0 [facility] Comment on above: Order Comment: Speci men Type: URINE SPECIMENOrdering Facility: [facility] Address: [address] [place] [address] Performed By: #### 2 890-2 ####[facility] LABORATORYCLIA [id number] [address] STATES OF [facility] Protein (U) [Mass/Vol] 12 mg/dL Normal 0-20 [facility] Comment on above: Order Comment: Speci men Type: URINE SPECIMENOrdering Facility: [facility] Address: [address] [place] [address] Performed By: #### 2 890-2 ####[facility] LABORATORYCLIA [id number] [address] RUBELLA IGG ANTIBODYon 05-14 RUBELLA IGG AB, QUAL Positive Normal Positive [facility] Comment on above: Order Comment: Speci men Type: BLOOD SPECIMENOrdering Facility: [facility] Address: [address] [place] [address] Result Comment: The result suggests recent or past exposure to Rubella virus or history of Rubella vaccination. Positive result may also be seen due to presence of passively-transferred antibodies. Please correlate with patient's history. Performed By: #### R UBIGG ####[facility] LABCLIA [id number] [address] [place], [place] [address] [place] Reagin and Treponema pallidu m IgG and IgM [Interp]on 05-14-2024 T. pallidum IgG+IgM IA Ql (S) Non-Reactive Normal Nonreactive [facility] Comment on above: Order Comment: Salma pepe Type: BLOOD SPECIMENOrdering Facility: [facility] Address: [address] [place] [address] Performed By: #### 5 195-3, 56936-6, 59937-5 ####[facility] LABIA [id number] [place] [address] [place] Reagin+T pallidum IgG+IgM Se rPl-Impon 05-14-2024 Reagin and Treponema pallidum IgG and IgM [Interp] Cannot exclude recent Treponemal infection if specimen collected within 7-10 days after appearance of suspect lesions or 2-3 weeks after an exposure. Clinical correlation is required. Normal [facility] Comment on above: Order Comment: Salma pepe Type: BLOOD SPECIMENOrdering Facility: [facility] Address: [address] [place] [address] Performed By: #### 5 195-3, 17810-2, 75349-8 ####[facility] LABIA [id number] [place] [id number] [place] TSH SerPl-aCncon 05-14-2024 TSH Qn 2.570 m[IU]/L Normal 0.270-4.200 [facility] Comment on above: Order Comment: Salma pepe Type: BLOOD SPECIMENOrdering Facility: [facility] Address: [address] [place] [address] Result Comment: If t he patient is , TSH reference range varies by gestational period: First Trimester (weeks 9-12): 0.180-2.990 mIU/L Second Trimester: 0.110-3.980 mIU/L Third Trimester: 0.480-4.710 mIU/L Dennis Grimaldo et al. A Practical Approach for the Verifications and Determination of Site- and Trimester-Specific Reference Intervals for Thyroid Function tests in . Thyroid, 2019:29:3:412-420. Micky Dickerson, et al. 2017 Guidelines of the Citizen Of [place] Thyroid Association for the Diagnosis and Management of Thyroid Disease during and the . Thyroid, 2017:27:3:315-389. Performed By: #### 3 016-3 ####[facility] LABCLIA [id number] [place] [address] [place] TYPE + SCREEN PRENATALon ABO A Normal [facility] Comment on above: Order Comment: Speci men Type: BLOOD SPECIMENOrdering Facility: [facility] Address: [address] [place] [address] Performed By: #### T SPN ####[facility] BLOOD BANKIA [id number] [address] [place] Rh Nom (Bld) Positive Normal [facility] Comment on above: Order Comment: Speci men Type: BLOOD SPECIMENOrdering Facility: [facility] Address: [address] [place] [address] Performed By: #### T SPN ####[facility] BLOOD BANKIA [id number] [address] TYPE AND SCREEN EXPIRATION 05/17/2024 23:59 Normal [facility] Comment on above: Order Comment: Speci men Type: BLOOD SPECIMENOrdering Facility: [facility] Address: [address] [place] [address] Performed By: #### T SPN ####[facility] BLOOD BANKIA [id number] [place] [address] [place] CNCOon 04-02-2024 CNCO Letter Text Normal [facility] CNPNon 03-29-2024 CNPN Telephone ([employer]) -------- KIERA ARVIZU ([id number]) 1 F Date Time Provider Department 03/29/24 VAUGHN HOOD During your visit today, we recorded the following information about you: Vaughn Hood RN 03/29/2024 9:45 AM Signed 1st risk assessment form submitted 03/29/2024 7w 5d today Allergies As of Date: 03/29/2024 (Not on File) Date Reviewed: 03/28/2024 Reviewed by: Mik Mendoza APRN.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 - 25/iron/folate 6/dha (PRENA1 ORAL) Take 1 tablet by mouth once daily. Problem List As Of Date 03/29/2024 Noted Resolved Chalazion of right upper eyelid [H00.11] 05/04/2015 Meibomian gland dysfunction (MGD), bilateral, b*05/04/2015 Vitreous floaters of both eyes [H43.393] 05/04/2015 History of section [Z98.891] 03/28/2024 Encounter for supervision of high risk pregnanc*03/28/2024 History of pre-eclampsia [Z87.59] 03/28/2024 History of delivery, currently *03/28/2024 Constipation during in first trimeste*03/28/2024 Heartburn during in first trimester [*03/28/2024 Encounter Status:Closed by VAUGHN HOOD on 03/29/24 Normal [facility] Bacteria Ur Culton Bacteria identified Cx Nom (U) ORGANISM ID: 1 <10,000 CFU/ml Normal urogenital ania Normal [facility] Comment on above: Performed By: #### 6 30-4 ####[facility] LABCLIA [id number] [place] [address] [place] C. trachomatis+N. gonorrhoea e DNA ÁNGEL+probe Ql (Unsp spec)on 03-28-2024 C. trachomatis rRNA ÁNGEL+probe Ql (Unsp spec) Not detected Normal Not detected [facility] Comment on above: Order Comment: Speci men Type: SWABOrdering Facility: [facility] Address: [address] [place] [address] Performed By: #### 3 6902-5 ####[facility] LABCLIA [id number] [place] [address] [place] N. gonorrhoeae rRNA ÁNGEL+probe Ql (Unsp spec) Not detected Normal Not detected [facility] Comment on above: Order Comment: Speci men Type: SWABOrdering Facility: [facility] Address: [address] [place] [address] Performed By: #### 3 6902-5 ####[facility] LABCLIA [id number] [place] [address] [place] HIGH RISK HUMAN PAPILLOMA CANDIDA (HPV), PCR FOR DETECTION AND GENOTYPINGon 03-28-2024 HPV 16 Ag Ql (Unsp spec) Not detected Normal Not detected [facility] Comment on above: Order Comment: Speci men Type: FLUID SPECIMENOrdering Facility: [facility] Address: [address] [place] [address] Performed By: #### H PVHRT ####[facility] LABIA [id number] [place] [address] [place] HPV 18 Ag Ql (Unsp spec) Not detected Normal Not detected [facility] Comment on above: Order Comment: Speci men Type: FLUID SPECIMENOrdering Facility: [facility] Address: [address] [place] [address] Performed By: #### H PVHRT ####[facility] LABIA [id number] [place] [address] [place] HPV 31+33+35+39+45+51+52+56 +58+59+66+68 DNA ÁNGEL+probe Ql (Cvx) Not detected Normal Not detected [facility] Comment on above: Order Comment: Speci men Type: FLUID SPECIMENOrdering Facility: [facility] Address: [address] [place] [address] Result Comment: High Risk HPV Other Type includes HPV types 31, 33, 35, 39, 45, 51, 52, 56, 58, 59, 66 and 68. Performed By: #### H PVHRT ####[facility] LABCLIA [id number] [address] PAP TESTon 03-28-2024 ADEQUACY Satisfactory for interpretation. Normal [facility] Comment on above: Order Comment: Speci men Type: FLUID SPECIMENOrdering Facility: [facility] Address: [address] [place] [address] Performed By: #### L [id number] ####[facility]ORATORYCLIA [id number] [address] LABCLIA [id number] [address] [place] CASE REPORT Normal [facility] Comment on above: Order Comment: Speci men Type: FLUID SPECIMENOrdering Facility: [facility] Address: [address] [place] [address] Result Comment: Gyne cologic Cytology Report Case: [id number] Authorizing Provider: Mik Mendoza APRN.BOX TRUCK DRIVER Collected: 03/28/2024 10:27 AM Ordering Location: OB/Gynecology Received: 03/28/2024 11:33 AM First Screen: Janine Mckeon, CT, ASCP Pathologist: Evelina Marin MD Specimen: Pap Test, ThinPrep, Cervix Performed By: #### L [id number] ####[facility]ORATORYCLIA [id number] [address] LABCLIA [id number] [address] [place] CLINICAL HISTORY, CYTOLOGY, LICENSED LOAN OFFICER (Indicate Weeks) Normal [facility] Comment on above: Order Comment: Speci men Type: FLUID SPECIMENOrdering Facility: [facility] Address: [address] [place] [address] Performed By: #### L [id number] ####[facility] LABORATORYCLIA [id number] [place] [id number] [facility] LABCLIA [id number] [address] [place] FINAL PERFORMING LAB Normal [facility] Comment on above: Order Comment: Speci men Type: FLUID SPECIMENOrdering Facility: [facility] Address: [address] [place] [address] Result Comment: Tech nical component, facsimile operator screening performed at [facility], [address] [facility], [place] [id number] CLIA# [id number] Diagnostic interpretation performed at [facility], [address] [facility], [place] [id number] CLIA# [id number] Plant Wrapper: Lorelei Barrera M.D. Performed By: #### L [id number] ####[facility]ORATORYCLIA [id number] [address] LABCLIA [id number] [address] STATES OF [facility] INTERPRETATION, CYTOLOGY, LICENSED LOAN OFFICER Abnormal [facility] Comment on above: Order Comment: Speci men Type: FLUID SPECIMENOrdering Facility: [facility] Address: [address] [place] [address] Result Comment: Atyp ical squamous cells of undetermined significance (ASC-US). Performed By: #### L [id number] ####[facility]ATORYCLIA [id number] [address] LABCLIA [id number] [place] [address] [place] LMP 02/04/2024 Normal [facility] Comment on above: Order Comment: Speci men Type: FLUID SPECIMENOrdering Facility: [facility] Address: [address] [place] [address] Performed By: #### L [id number] ####[facility]ATORYCLIA [id number] [address] LABCLIA [id number] [place] [address] [place] PAP DISCLAIMER COMMENT The Pap Smear is a screening test for cervical cancer. False negative results occur with all screening tests, emphasizing the need for rescreening at recommended intervals, and clinical correlation. Normal [facility] Comment on above: Order Comment: Speci men Type: FLUID SPECIMENOrdering Facility: [facility] Address: [address] [place] [address] Performed By: #### L [id number] ####[facility]ATORYCLIA [id number] [address] STATES [facility] LABCLIA [id number] [place] [address] [place] PAP GENERAL CATEGORIZATION Epithelial Cell Abnormality Normal [facility] Comment on above: Order Comment: Speci men Type: FLUID SPECIMENOrdering Facility: [facility] Address: [address] [place] [address] Performed By: #### L [id number] ####[facility]ORATORYCLIA [id number] [address] STATES [facility] LABCLIA [id number] [place] [address] [place] PAP CHRISTMAS TREE FARMER COMMENT This specimen has be en analyzed by the ThinPrep Imaging System, an automated imaging and review system, which assists the laboratory in evaluating cells on ThinPrep Pap tests. Following automated imaging, selected de oliveira from every slide are reviewed by a facsimile operator. 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 View: Adequate visualization Lui . Number of embryos: 1 Dating LMP on: 02/04/2024 GA by LMP 7 w + 4 d EDI by LMP: 11/10/2024 Ultrasound examination on: 03/28/2024 GA by U/S based upon: CRL GA by U/S 8 w + 0 d EDI by U/S: 11/07/2024 Assigned: based on the LMP, selected on 03/28/2024 Assigned GA 7 w + 4 d Assigned EDI: 11/10/2024 Biometry Standard FHR 171 bpm CRL 15.8 mm 8w 0d >99% Hadlock Assessment Gestational sac: visualized Location: intrauterine Yolk sac: visualized Embryo: visualized CRL 15.8 mm 8w 0d >99% Hadlock Cardiac activity: present FHR 171 bpm General Evaluation Cardiac activity present. FHR 171 bpm Performed By: Mik Mendoza NP Read By: Mik Mendoza NP MATERNAL MEDICINE [facility] Radiology [facility] (narrative[facility] 02-28-2024 CNPN Telephone (OBGYWM) -------- KIERA ARVIZU ([id number]) 1 F Date Time Provider Department 02/28/24 DEB SIMMONS During your visit today, we recorded the following information about you: Nandini Hardin 02/28/2024 11:26 AM Signed Patient wanted to let the office know she has been trying to request her records from [facility] for over a month now, and she still has not heard anything back. Patient states she has tried multiple times. Please review. Nandini Arturo Hardin February 28, 2024 11:25 AM Katherine Philip RN 02/28/2024 11:43 AM Signed Noted. Will have patient sign a release of records if not received before her appointment. Some records are available in Care Everywhere. Katherine Philip RN Allergies As of Date: 02/28/2024 (Not on File) Date Reviewed: 06/10/2015 Reviewed by: Jcarlos Beckett (Od) - Fully Assessed Reason for Visit: Patient Update [1234] Problem List As Of Date 02/28/2024 Noted Resolved Chalazion of right upper eyelid [H00.11] 05/04/2015 Meibomian gland dysfunction (MGD), bilateral, b*05/04/2015 Vitreous floaters of both eyes [H43.393] 05/04/2015 Encounter Status:Closed by KATHERINE PHILIP on 02/28/24 Normal [facility] Zinc, Plasma or Serumon 10-2 ZINC,PLASMA/SER 73 ug/dL Normal 44-115 [facility] Comment on above: Order Comment: Test( s) 531838-Uvlu, Plasma or Serum was developed and its performance characteristics determined by [facility]. It has not been cleared or approved by the Food and Drug Administration. Result Comment: Dete ction Limit = 5 Performed at: [address] [id number] Label Pinker: Christoph Thomas MD, Phone: [phone] Performed By: #### L 3300.9900, L100.0100, L503.6550, L3100.7950, L3100.5500, L3300.0960, L500.4050 #### [facility] [address] [place], [address] Anti-dsDNA Abon 01-16-2024 ANTI-DNA (DS)AB 1 IU/mL Normal 0-9 [facility] Comment on above: Order Comment: Speci my Comment: A duplicate report has been generated due to demographic Specimen Comment: updates. Result Comment: Nega tive <5 Equivocal 5 - 9 Positive >9 Performed By: #### L 3300.9900, L100.0100, L503.6550, L3100.7950, L3100.5500, L3300.0960, L500.4050 #### [facility] [address] [place], [place], [id number] Antinuclear Antibody, IFAon 01-16-2024 LUCIA, IFA Negative Normal . [facility] Comment on above: Order Comment: Salma pepe Comment: A duplicate report has been generated due to demographic Specimen Comment: updates. Result Comment: Nega tive <1:80 Borderline 1:80 Positive >1:80 ICAP nomenclature: AC-0 For more information about Hep-2 cell patterns use ANApatterns.org, the official website for the International Consensus on Antinuclear Antibody (LUCIA) Patterns (ICAP). Performed at: [facility] Labco[address] [id number] Label Pinker: Wei Smith PhD, Phone: [phone] Performed at: [facility] Labco[address] [id number] Label Pinker: Christoph Thomas MD, Phone: [phone] Performed By: #### L 3300.9900, L100.0100, L503.6550, L3100.7950, L3100.5500, L3300.0960, L500.4050 #### [facility] [address] [place], [place], [address] Vitamin D 1,25-Dihydroxyon 1 VIT D 1,25 DIHY 33.0 pg/mL Normal 24.8-81.5 [facility] Comment on above: Order Comment: Speci my Comment: A duplicate report has been generated due to demographic Specimen Comment: updates. Performed By: #### L 3300.9900, L100.0100, L503.6550, L3100.7950, L3100.5500, L3300.0960, L500.4050 #### [facility] [address] [place], [address] L3300.0940on 01-13-2024 VIT D,25 HYDROX Normal [facility] Comment on above: Result Comment: TEST RESULTS LIMITS Vitamin D, 25-Hydroxy 30.5 ng/mL 30.0-100.0 Vitamin D deficiency has been defined by the [place] of Medicine and an Endocrine Society practice guideline as a level of serum 25-OH vitamin D less than 20 ng/mL (1,2). The Endocrine Society went on to further define vitamin D insufficiency as a level between 21 and 29 ng/mL (2). 1. IOM ([place] of Medicine). 2010. Dietary reference intakes for calcium and D. [place]: The National Academies Press. 2. Laura MF, Jimi NC, Antonio BROWN, et al. Evaluation, treatment, and prevention of vitamin D deficiency: an Endocrine Society clinical practice guideline. JCEM. 2011 Sep; 96(7):1911-30. TESTING PERFORMED AT [facility]. ORIGINAL REPORT ON FILE IN LAB CONTAINS ADDITIONAL TEST SITE INFORMATION. Performed By: #### L 3300.0940 #### [facility] [address] [place], [address] CBC W/Diff, Automatedon 10- Absolute Lymph 2.92 X10 3/uL Normal 0.83-4.51 [facility] Comment on above: Performed By: #### L 3300.9900, L100.0100, L503.6550, L3100.7950, L3100.5500, L3300.0960, L500.4050 #### [facility] [address] [place], [address] Absolute Neut 3.6 X10 3/uL Normal 2.0-7.7 [facility] Comment on above: Performed By: #### L 3300.9900, L100.0100, L503.6550, L3100.7950, L3100.5500, L3300.0960, L500.4050 #### [facility] [address] [place], [address] Basophils/100 WBC (Bld) 0.8 % Normal 0-1 [facility] Comment on above: Performed By: #### L 3300.9900, L100.0100, L503.6550, L3100.7950, L3100.5500, L3300.0960, L500.4050 #### [facility] [address] [place], [address] Eosinophils/100 WBC (Bld) 5.2 % High 0-5 [facility] Comment on above: Performed By: #### L 3300.9900, L100.0100, L503.6550, L3100.7950, L3100.5500, L3300.0960, L500.4050 #### [facility] [address] [place], [address] Erythrocyte distribution width (RBC) [Ratio] 12.6 % Normal 11.6-14.6 [facility] Comment on above: Performed By: #### L 3300.9900, L100.0100, L503.6550, L3100.7950, L3100.5500, L3300.0960, L500.4050 #### [facility] [address] [place], [address] Hematocrit (Bld) [Volume fraction] 40.2 % Normal 37-47 [facility] Comment on above: Performed By: #### L 3300.9900, L100.0100, L503.6550, L3100.7950, L3100.5500, L3300.0960, L500.4050 #### [facility] [address] [place], [address] Hemoglobin (Bld) [Mass/Vol] 13.1 g/dL Normal 12.0-15.0 [facility] Comment on above: Performed By: #### L 3300.9900, L100.0100, L503.6550, L3100.7950, L3100.5500, L3300.0960, L500.4050 #### [facility] [address] [place], [address] IG% 0.100 Normal 0.0-0.9 [facility] Comment on above: Result Comment: IG% - Immature Granulocytes (promyelocytes, myelocytes and metamyelocytes) > 1% indicates that a LEFT SHIFT is Present. Performed By: #### L 3300.9900, L100.0100, L503.6550, L3100.7950, L3100.5500, L3300.0960, L500.4050 #### [facility] [address] [place], [address] Lymphocytes/100 WBC (Bld) 39.1 % Normal 19-41 [facility] Comment on above: Performed By: #### L 3300.9900, L100.0100, L503.6550, L3100.7950, L3100.5500, L3300.0960, L500.4050 #### [facility] [address] [place], [address] MCH (RBC) [Entitic mass] 29.8 pg Normal 27.0-32.0 [facility] Comment on above: Performed By: #### L 3300.9900, L100.0100, L503.6550, L3100.7950, L3100.5500, L3300.0960, L500.4050 #### [facility] [address] [place], [address] MCHC (RBC) [Mass/Vol] 32.6 g/dL Normal 32-36 [facility] Comment on above: Performed By: #### L 3300.9900, L100.0100, L503.6550, L3100.7950, L3100.5500, L3300.0960, L500.4050 #### [facility] [address] [place], [address] MCV (RBC) [Entitic vol] 91.4 fL Normal 81-99 [facility] Comment on above: Performed By: #### L 3300.9900, L100.0100, L503.6550, L3100.7950, L3100.5500, L3300.0960, L500.4050 #### [facility] [address] [place], [address] Monocytes/100 WBC (Bld) 6.0 % Normal 0-10 [facility] Comment on above: Performed By: #### L 3300.9900, L100.0100, L503.6550, L3100.7950, L3100.5500, L3300.0960, L500.4050 #### [facility] [address] [place], [address] Neutrophils/100 WBC (Bld) 48.8 % Normal 47-70 [facility] Comment on above: Performed By: #### L 3300.9900, L100.0100, L503.6550, L3100.7950, L3100.5500, L3300.0960, L500.4050 #### [facility] [address] [place], [address] Nucleated RBC (Bld) [#/Vol] 0 10*3/uL Normal 0-5 [facility] Comment on above: Performed By: #### L 3300.9900, L100.0100, L503.6550, L3100.7950, L3100.5500, L3300.0960, L500.4050 #### [facility] [address] [place], [address] Platelet mean volume (Bld) [Entitic vol] 11.1 fL Normal 6.2-12.0 [facility] Comment on above: Performed By: #### L 3300.9900, L100.0100, L503.6550, L3100.7950, L3100.5500, L3300.0960, L500.4050 #### [facility] [address] [place], [address] Platelets (Bld) [#/Vol] 318 10*3/uL Normal 150-450 [facility] Comment on above: Performed By: #### L 3300.9900, L100.0100, L503.6550, L3100.7950, L3100.5500, L3300.0960, L500.4050 #### [facility] [address] [place], [address] RBC (Bld) [#/Vol] 4.40 10*6/uL Normal 4.2-5.4 [facility] Comment on above: Performed By: #### L 3300.9900, L100.0100, L503.6550, L3100.7950, L3100.5500, L3300.0960, L500.4050 #### [facility] [address] [place], [address] RDW SD 41.7 fl Normal 35.1-43.9 [facility] Comment on above: Performed By: #### L 3300.9900, L100.0100, L503.6550, L3100.7950, L3100.5500, L3300.0960, L500.4050 #### [facility] [address] [place], [address] WBC (Bld) [#/Vol] 7.5 10*3/uL Normal 4.4-11.0 [facility] Comment on above: Performed By: #### L 3300.9900, L100.0100, L503.6550, L3100.7950, L3100.5500, L3300.0960, L500.4050 #### [facility] [address] [place], [address] Comprehensive Metabolic Prof ilon 01-10-2024 Albumin [Mass/Vol] 4.4 g/dL Normal 3.2-5.0 [facility] Comment on above: Performed By: #### L 3300.9900, L100.0100, L503.6550, L3100.7950, L3100.5500, L3300.0960, L500.4050 #### [facility] [address] [place], [address] Albumin/Globulin [Mass ratio] 1.3 {ratio} Normal 0.9-2.4 [facility] Comment on above: Performed By: #### L 3300.9900, L100.0100, L503.6550, L3100.7950, L3100.5500, L3300.0960, L500.4050 #### [facility] [address] [place], [address] ALK P 49 U/L Normal 45-117 [facility] Comment on above: Performed By: #### L 3300.9900, L100.0100, L503.6550, L3100.7950, L3100.5500, L3300.0960, L500.4050 #### [facility] [address] [place], [address] ALT [Catalytic activity/Vol] 14 U/L Normal 13-56 [facility] Comment on above: Performed By: #### L 3300.9900, L100.0100, L503.6550, L3100.7950, L3100.5500, L3300.0960, L500.4050 #### [facility] [address] [place], [address] AST [Catalytic activity/Vol] 13 U/L Low 15-37 [facility] Comment on above: Performed By: #### L 3300.9900, L100.0100, L503.6550, L3100.7950, L3100.5500, L3300.0960, L500.4050 #### [facility] [address] [place], [address] Bilirubin [Mass/Vol] 0.40 mg/dL Normal 0.20-1.00 [facility] Comment on above: Result Comment: For patients on eltrombopag therapy, use of Dimension [place] TBIL is not recommended. Performed By: #### L 3300.9900, L100.0100, L503.6550, L3100.7950, L3100.5500, L3300.0960, L500.4050 #### [facility] [address] [place], [address] BUN/CRE 11.4 RATIO Normal 10-20 [facility] Comment on above: Performed By: #### L 3300.9900, L100.0100, L503.6550, L3100.7950, L3100.5500, L3300.0960, L500.4050 #### [facility] [address] [place], [address] CA,Total 9.4 mg/dL Normal 8.5-10.1 [facility] Comment on above: Performed By: #### L 3300.9900, L100.0100, L503.6550, L3100.7950, L3100.5500, L3300.0960, L500.4050 #### [facility] [address] [place], [address] Chloride [Moles/Vol] 106 mmol/L Normal 98-107 [facility] Comment on above: Performed By: #### L 3300.9900, L100.0100, L503.6550, L3100.7950, L3100.5500, L3300.0960, L500.4050 #### [facility] [address] [place], [address] CO2 [Moles/Vol] 25.0 mmol/L Normal 21.0-32.0 [facility] Comment on above: Performed By: #### L 3300.9900, L100.0100, L503.6550, L3100.7950, L3100.5500, L3300.0960, L500.4050 #### [facility] [address] [place], [place], [id number] (992) Creatinine [Mass/Vol] 0.88 mg/dL Normal 0.55-1.02 [facility] Comment on above: Result Comment: The validity of the calculated GFR GFRAA in patients over 70 years has not been determined. Clinical correlation is essential. Performed By: #### L 3300.9900, L100.0100, L503.6550, L3100.7950, L3100.5500, L3300.0960, L500.4050 #### [facility] [address] [place], [address] EST GFR - AA 102 mL/min Normal >60 [facility] Comment on above: Result Comment: Afri can Citizen Of [place] GFR Calc Performed By: #### L 3300.9900, L100.0100, L503.6550, L3100.7950, L3100.5500, L3300.0960, L500.4050 #### [facility] [address] [place], [address] GAP 7 Normal 5-15 [facility] Comment on above: Performed By: #### L 3300.9900, L100.0100, L503.6550, L3100.7950, L3100.5500, L3300.0960, L500.4050 #### [facility] [address] [place], [address] GFR/1.73 sq M.predicted among non-blacks MDRD (S/P/Bld) [Vol rate/Area] 85 mL/min/{1.73_m2} Normal >60 [facility] Comment on above: Result Comment: Non- GFR Calc Performed By: #### L 3300.9900, L100.0100, L503.6550, L3100.7950, L3100.5500, L3300.0960, L500.4050 #### [facility] [address] [place], [address] Globulin (S) [Mass/Vol] 3.4 g/dL Normal 2.2-4.2 [facility] Comment on above: Performed By: #### L 3300.9900, L100.0100, L503.6550, L3100.7950, L3100.5500, L3300.0960, L500.4050 #### [facility] [address] [place], [address] Glucose [Mass/Vol] 80 mg/dL Normal 74-106 [facility] Comment on above: Performed By: #### L 3300.9900, L100.0100, L503.6550, L3100.7950, L3100.5500, L3300.0960, L500.4050 #### [facility] [address] [place], [address] Potassium [Moles/Vol] 3.7 mmol/L Normal 3.5-5.1 [facility] Comment on above: Performed By: #### L 3300.9900, L100.0100, L503.6550, L3100.7950, L3100.5500, L3300.0960, L500.4050 #### [facility] [address] [place], [place], [id number] Sodium [Moles/Vol] 138 mmol/L Normal 136-145 [facility] Comment on above: Performed By: #### L 3300.9900, L100.0100, L503.6550, L3100.7950, L3100.5500, L3300.0960, L500.4050 #### [facility] [address] [place], [place], [id number] T PROT 7.8 g/dL Normal 6.4-8.2 [facility] Comment on above: Performed By: #### L 3300.9900, L100.0100, L503.6550, L3100.7950, L3100.5500, L3300.0960, L500.4050 #### [facility] [address] [place], [place], [id number] Urea nitrogen [Mass/Vol] 10 mg/dL Normal 7-18 [facility] Comment on above: Performed By: #### L 3300.9900, L100.0100, L503.6550, L3100.7950, L3100.5500, L3300.0960, L500.4050 #### [facility] [address] [place], [place], [id number] Ferritinon 01-10-2024 Ferritin [Mass/Vol] 13 ng/mL Normal 8-252 [facility] Comment on above: Performed By: #### L 3300.9900, L100.0100, L503.6550, L3100.7950, L3100.5500, L3300.0960, L500.4050 #### [facility] [address] [place], [place], [id number] CNPSravani 12-19-2023 DELISAN Telephone (OBGYWM) -------- KIERA ARVIZU ([id number]) 1 F Date Time Provider Department 12/19/23 DARNELL BLANK OBNIESHAWEvangelina During your visit today, we recorded the following information about you: Leah Schreiber RN 12/19/2023 2:04 PM Addendum Left message for patient to return phone call. Patient is scheduled for MFM 01/02/2024 for preconceptual counseling . There is no referral. Appointment notes states pre-eclampsia with previous . Please triage. Dr Blank said it probably would be best for patient to start with OB doctor here for pre-conceptual counseling to see if referral to MFM is necessary. We would also need records if she proceeds with any appointment-none found in [facility] or care-everywhere Leah Schreiber RN 12/26/2023 9:43 AM Signed Patient rescheduled with Dr Mojica. She will have her records sent to our office. Fax number provided Allergies As of Date: 12/19/2023 (Not on File) Date Reviewed: 06/10/2015 Reviewed by: Jcarlos Beckett (Od) - Fully Assessed Reason for Visit: Appointment [186] Problem List As Of Date 12/19/2023 Noted Resolved Chalazion of right upper eyelid [H00.11] 05/04/2015 Meibomian gland dysfunction (MGD), bilateral, b*05/04/2015 Vitreous floaters of both eyes [H43.393] 05/04/2015 Encounter Status:Closed by LEAH SCHREIBER on 12/26/23 Normal [facility] Dilute Blayne's viper venom timeOrdered By: Dr. Huston on 08-24-2022 dRVVT Coag (PPP) [Time] 40.6 s 0.0-47.0 [facility] No Panel InformationOrdered By: Dr. Huston on 08-24-2022 Anti-Cardiolipin IgM Antibody 13 MPL U/mL 0-12 [facility] Comment on above: Negative: <13 Indete rminate: 13 - 20 Low-Med Positive: >20 - 80 High Positive: >80Performed at: [address] [id number] Director: Christoph Thomas MD, Phone: [phone] at: [id number] [place], [place] [id number] Director: Wei Smith PhD, Phone: [phone] Serum aqyy-1-ucbztkehkckcu m easurement (mass/volume)Ordered By: Dr. Huston on 08-24-2022 Vyqh-8-Ibrztltxziirc [Mass/Vol] 1.6 ug/mL 0.6-2.4 [facility] Comment on above: Siemens Nicholas Haddox Recordsulite 200 0 Immunochemiluminometric assay (ICMA)Values obtained with different assay methods or kits cannotbe used interchangeably. Results cannot be interpreted asabsolute evidence of the presence or absence of malignantdisease.Performed at: [address] [id number] Director: Christoph Thomas MD, Phone: [phone] Serum cardiolipin IgG antibo dy assay by immunoassay (units/volume)Ordered By: Dr. Huston on 08-24-2022 Cardiolipin IgG IA Qn (S) < 9 GPL U/mL 0-14 [facility] Comment on above: Negative: <15 Indete rminate: 15 - 20 Low-Med Positive: >20 - 80 High Positive: >80 Thin prep Papanicolaou smear with manual screeningOrdered By: Dr. Huston on 08-24-2022 Thin prep Papanicolaou smear with manual screening 40.1 sec 0.0-47.6 [facility] Thin prep Papanicolaou smear with manual screening 1.04 Ratio 0.00-1.34 [facility] Thin prep Papanicolaou smear with manual screening 36.4 sec 0.0-43.5 [facility] Thin prep Papanicolaou smear with manual screening Comment: . [facility] Comment on above: No lupus anticoagula nt was detected. Thrombin time in platelet po or plasmaOrdered By: Dr. Huston on 08-24-2022 Thrombin time Coag (PPP) [Time] 16.5 sec 0.0-23.0 [facility] Culture, urineOrdered By: Dr Javier Huston on 05-25-2022 Bacteria identified Cx Nom (U) Positive [facility] Basophil percentageOrdered B y: Dr. Huston on 05-24-2022 Bilirubin [Mass/Vol] 0.50 mg/dL 0.20-1.00 [facility] Comment on above: For patients on eltr ombopag therapy, use of Dimension [place] TBIL is not recommended. Chloride [Moles/Vol] 108 mmol/L 98-107 [facility] Glucose [Mass/Vol] 86 mg/dL 74-106 [facility] Potassium [Moles/Vol] 3.7 mmol/L 3.5-5.1 [facility] Protein [Mass/Vol] 7.2 g/dL 6.4-8.2 [facility] Sodium [Moles/Vol] 141 mmol/L 136-145 [facility] WBC (Bld) [#/Vol] 7.8 10*3/uL 4.4-11.0 [facility] Blood erythrocytes count (nu mber/volume)Ordered By: Dr. Huston on 05-24-2022 RBC (Bld) [#/Vol] 4.04 10*6/uL 4.2-5.4 [facility] Blood hemoglobin measurement (mass/volume)Ordered By: Dr. Huston on 05-24-2022 Hemoglobin (Bld) [Mass/Vol] 11.9 g/dL 12.0-15.0 [facility] Blood platelet mean volumeOr dered By: Dr. Huston on 05-24-2022 Platelet mean volume (Bld) [Entitic vol] 9.8 fL 6.2-12.0 [facility] Determination of erythrocyte mean corpuscular volume (MCV)Ordered By: Dr. Huston on 05-24-2022 MCV (RBC) [Entitic vol] 92.1 fL 81-99 [facility] Dilute Blayne's viper venom timeOrdered By: Dr. Huston on 05-24-2022 dRVVT Coag (PPP) [Time] 37.1 s 0.0-47.0 [facility] Hematocrit Auto (Bld) [Volum e fraction]Ordered By: Dr. Huston on 05-24-2022 Hematocrit (Bld) [Volume fraction] 37.2 % 37-47 [facility] - Chemistry and C hemistry - challengeOrdered By: Dr. Huston on 05-24-2022 ALP [Catalytic activity/Vol] 70 U/L 45-117 [facility] ALT [Catalytic activity/Vol] 50 U/L 13-56 [facility] CO2 [Moles/Vol] 24.0 mmol/L 21.0-32.0 [facility] Globulin (S) [Mass/Vol] 3.4 g/dL 2.2-4.2 [facility] Urea nitrogen/Creatinine [Mass ratio] 16.8 mg/mg 10-20 [facility] - Hematology and Cell countsOrdered By: Dr. Huston on 05-24-2022 Erythrocyte distribution width (RBC) [Entitic vol] 42.0 fL 35.1-43.9 [facility] Erythrocyte distribution width (RBC) [Ratio] 12.2 % 11.6-14.6 [facility] MCH (RBC) [Entitic mass] 29.5 pg 27.0-32.0 [facility] MCHC Auto (RBC) [Mass/Vol]Or dered By: Dr. Huston on 05-24-2022 MCHC (RBC) [Mass/Vol] 32.0 g/dL 32-36 [facility] No Panel InformationOrdered By: Dr. Huston on 05-24-2022 Anti-Cardiolipin IgM Antibody 21 MPL U/mL 0-12 [facility] Comment on above: Negative: <13 Indete rminate: 13 - 20 Low-Med Positive: >20 - 80 High Positive: >80Performed at: [address] [id number] Director: Christoph Thomas MD, Phone: [phone] at: [employer] [address] [id number] Director: Wei Smith PhD, Phone: [phone] Estimated GFR (MDRD) Amer 101 mL/min >60 [facility] Comment on above: GFR Calc Estimated GFR (MDRD) Non-Af Amer 84 mL/min >60 [facility] Comment on above: Non- GFR Calc Platelets bldOrdered By: Dr. Huston on 05-24-2022 Platelets (Bld) [#/Vol] 310 10*3/uL 150-450 [facility] Serum toiw-0-glevxgzqzezps m easurement (mass/volume)Ordered By: Dr. Huston on 05-24-2022 Nncz-4-Errwjoxkzsyyg [Mass/Vol] 1.4 ug/mL 0.6-2.4 [facility] Comment on above: Siemens Nicholas Haddox Recordsulite 200 0 Immunochemiluminometric assay (ICMA)Values obtained with different assay methods or kits cannotbe used interchangeably. Results cannot be interpreted asabsolute evidence of the presence or absence of malignantdisease.Performed at: [employer] [address] [id number] Director: Christoph Thomas MD, Phone: [phone] Serum cardiolipin IgG antibo dy assay by immunoassay (units/volume)Ordered By: Dr. Huston on 05-24-2022 Cardiolipin IgG IA Qn (S) < 9 GPL U/mL 0-14 [facility] Comment on above: Negative: <15 Indete rminate: 15 - 20 Low-Med Positive: >20 - 80 High Positive: >80 Serum or plasma albumin kemi urement (mass/volume)Ordered By: Dr. Huston on 05-24-2022 Albumin [Mass/Vol] 3.8 g/dL 3.2-5.0 [facility] Serum or plasma albumin/glob ulin mass ratioOrdered By: Dr. Huston on 05-24-2022 Albumin/Globulin [Mass ratio] 1.1 {ratio} 0.9-2.4 [facility] Serum or plasma calcium kemi urement (mass/volume)Ordered By: Dr. Huston on 05-24-2022 Calcium [Mass/Vol] 9.3 mg/dL 8.5-10.1 [facility] Serum or plasma creatinine m easurement (mass/volume)Ordered By: Dr. Huston on 05-24-2022 Creatinine [Mass/Vol] 0.90 mg/dL 0.55-1.02 [facility] Comment on above: The validity of the calculated GFR & GFRAA in patients over 70 years has not been determined. Clinical correlation is essential. Serum or plasma urea nitroge n measurement (mass/volume)Ordered By: Dr. Huston on 05-24-2022 Urea nitrogen [Mass/Vol] 15 mg/dL 7-18 [facility] Thin prep Papanicolaou smear with manual screeningOrdered By: Dr. Huston on 05-24-2022 Thin prep Papanicolaou smear with manual screening 35 U/L 15-37 [facility] Thin prep Papanicolaou smear with manual screening 9 5-15 [facility] Thin prep Papanicolaou smear with manual screening 38.8 sec 0.0-47.6 [facility] Thin prep Papanicolaou smear with manual screening 0.91 Ratio 0.00-1.34 [facility] Thin prep Papanicolaou smear with manual screening 37.9 sec 0.0-43.5 [facility] Comment on above: Please note refere nce interval change Thin prep Papanicolaou smear with manual screening Comment: . [facility] Comment on above: No lupus anticoagula nt was detected. Thrombin time in platelet po or plasmaOrdered By: Dr. Huston on 05-24-2022 Thrombin time Coag (PPP) [Time] 18.6 sec 0.0-23.0 [facility] Urine creatinine measurement (mass/volume)Ordered By: Dr. Huston on 05-24-2022 Creatinine (U) [Mass/Vol] 243.00 mg/dL NO RANGE EST. [facility] Urine protein measurement (m ass/volume)Ordered By: Dr. Huston on 05-24-2022 Protein (U) [Mass/Vol] 22.0 mg/dL 0.0-11.8 [facility] Urine protein/creatinine mas s ratioOrdered By: Dr. Huston on 05-24-2022 Protein/Creatinine (U) [Mass ratio] 91 mg/g CRE 0-200 [facility] Progress Noteon 04-15-2022 Progress Note Note-Sharyn quinonez POST OPERATIVE DAY # 3 Kiera Bello is a 21 y.o. who was seen & examined today. Her was complicated by: Patient Active Problem List Diagnosis Preeclampsia, severe, third trimester Severe pre-eclampsia in third trimester Today she is doing well without any chief complaint. Her lochia is light. She denies Headache, Chest Pain, Vision Changes, Shortness of Breath, and Epigastric Pain. She is ambulating well. Flatus present. Voiding without difficulty. She is tolerating solids. Pain is controlled yes. Vital Signs: Vitals: 04/14/22 1808 04/14/22200904/14/22 2306 04/15/22 0304 BP: 131/82 135/86 127/85 123/77 BP Location: Right arm Left arm Right arm Patient Position: Sitting Sitting Lying Pulse: 97 81 85 85 Resp: Temp: 36.8 ?C (98.3 ?F) 36.3 ?C (97.3 ?F) 36.6 ?C (97.8 ?F) 37.5 ?C (99.5 ?F) TempSrc: Oral Temporal Temporal Temporal SpO2: 96% 100% 97% 95% Weight: Height: Urine Input & Output last 24hrs: Intake/Output Summary (Last 24 hours) at 04/15/2022 0630 Last data filed at 04/14/2022 0920 Gross per 24 hour Intake -- Output 600 ml Net -600 ml Physical Exam: GENERAL APPEARANCE: alert, well appearing, in no apparent distress ABDOMEN : fundus firm, no acute ttp Desc; incision: healing well, no drainage, no erythema, well approximated Labs: Lab Results Component Value Date WBC 19.2 (H) 04/13/2022 HGB 12.9 04/13/2022 HCT 38.2 04/13/2022 MCV 90.2 04/13/2022 PLT 207 04/13/2022 A Antibody Screen: No results found for: LABANTI No results found for: RUBELLAIGG LABOR DELIVERY ??? SCD's ONLY (labor through ambulation) SCD's PLUS Prophylactic Anticoagulation until discharge SCD's PLUS Prophylactic Anticoagulation for 6 weeks SCD's PLUS Therapeutic Anticoagulation for 6 weeks Vaginal Delivery [] BMI ? 40 kg/m2 Delivery All patients Vaginal Delivery [] BMI ? 40 kg/m2 AND [] Antepartum hospitalization ? 72 hours within the past month Delivery 1 Major Risk Factor: [] BMI ? 35 kg/m2 [] Low Risk Thrombophilia [] PPH+RBCs, IR, or operation [] Infection+Antibiotics [] Antepartum hospitalization ? 72 hours within the past month [x] PMH: Sickle Cell, SLE, Cardiac Dz, Active IBD, Active Cancer, Nephrotic Syndrome OR 2 Minor Risk Factors: [] Multiple gestation [] Age > 40 [] PPH ? 1,000cc [] (+)FMH of VTE [] Smoker [] Preeclampsia [] BMI ? 40 kg/m2 AND [] Low Risk Thrombophilia OR ANY OF THE FOLLOWING: [] High Risk Thrombophilia without prior VTE [] Low Risk Thrombophilia with (+)FMH of VTE [] Any single prior VTE ANY OF THE FOLLOWING: [] Already on LMWH/UFH [] Multiple prior VTE [] High Risk Thrombophilia with prior VTE Low Risk Thrombophilia: FVL (heterozygous), Prothrombin (heterozygous), Protein C, Protein S High Risk Thrombophilia: FVL (homozygous), Prothrombin (homozygous), FVL+Prothrombin (heterozygous), Antithrombin III, APLS Assessment/Plan: Kiera Bello is a 21 y.o. POD # 3 s/p PLTCS 2/2 PreEwSF Care - Doing well, VSS - Male - both, breast and bottle feeding - Contraception: Per Private Attending - Encourage ambulation and use of incentive spirometer - Postop Hb 12.9 - VTE Prophylaxis: Prophylactic Dosing until Discharge PreEwFS TOMASA -BP normotensive to mild range overnight -Continue Procardia XL 60mg daily -S/p magnesium sulfate for seizure ppx -Cr noted to improve from 1.15-->0.94, no further trending of labs -UOP adequate -C3/4, LUCIA and anti-dsDNA negative -Asx this AM Disposition: Anticipate discharge today per private attending's discretion Based on my clinical assessment, this patient Yes: Plan B - Risks and benefits discussed. safe for self discharge (does not need transport by wheelchair) if she so chooses. Provider's Name: MD Delaney Luciano, DO 04/15/2022, 6:30 AM Attestation Statement I saw and evaluated the patient. I agree with the findings and plans of the resident physician, and agree as documented in her note. Doing well POD#3, meeting milestones. Blood pressures normal range on Procardia 60XL daily. Will plan for BP check early next week. Ok for discharge to home with routine follow up 6 weeks PP. PP/post-op instruction and precautions provided. I spent 20 minutes in the visit, with more than 50% of the total aoac-nl-xofw time of the visit in counseling/coordination of care. , 10:20 AM [facility] 42on 04-14-2022 42 Follow up visit with patient. Reviewed pumping process. Observed pump session and flange 22.5 assessed. Reassured her of the process of milk stimulation, colostrum,transitional milk and mature milk. Discussed breast drainage once breasts fill in the next few days. Encouraged her to ask NICU for a rental pump at discharge and assistance with personal pump when she is ready for that. Normal [facility] CAREPLNon 04-14-2022 CAREPLN The patient is Moderately Stable - Low risk of patient condition declining or worsening The clinical goals for the shift include Walk down with spouse to visit baby in NICU-goal met Problem: Goal: Experiences normal course Outcome: Progressing Goal: Appropriate maternal - bonding Outcome: Progressing Goal: Establishment of feeding pattern Outcome: Progressing Goal: Incisions, wounds, or drain sites healing without S/S of infection Outcome: Progressing Problem: Pain - Adult Goal: Verbalizes/displays adequate comfort level or baseline comfort level Outcome: Progressing Flowsheets (Taken 04/13/20221936) Verbalizes/displays adequate comfort level or baseline comfort level: Encourage patient to monitor pain and request assistance Assess pain using appropriate pain scale Problem: Infection - Adult Goal: Absence of infection at discharge Outcome: Progressing Goal: Absence of infection during hospitalization Outcome: Progressing Goal: Absence of fever/infection during anticipated neutropenic period Outcome: Progressing Problem: Safety - Adult Goal: Free from fall injury Outcome: Progressing Flowsheets (Taken 04/13/20221936) Free from fall injury: Instruct family/caregiver on patient safety Problem: Discharge Planning Goal: Discharge to home or other facility with appropriate resources Outcome: Progressing Normal [facility] Comprehensive metabolic 1998 panelon 04-14-2022 Albumin [Mass/Vol] 2.7 g/dL Low 3.5 - 5.0 g/dL [facility] [place] ALP [Catalytic activity/Vol] 210 U/L High 38 - 126 U/L [facility] [place] ALT [Catalytic activity/Vol] 20 U/L 0 - 34 U/L [facility] [place] Anion gap [Moles/Vol] 2 mmol/L Low 3 - 13 mmol/L [facility] AST [Catalytic activity/Vol] 46 U/L 15 - 46 U/L [facility] [place] Bilirubin [Mass/Vol] 0.1 mg/dL Low 0.2 - 1 .3 mg/dL [facility] [place] Calcium [Mass/Vol] 7.5 mg/dL Low 8.4 - 10. 4 mg/dL [facility] [place] Chloride [Moles/Vol] 105 mmol/L 98 - 10 7 mmol/L [facility] [place] CO2 [Moles/Vol] 25 mmol/L 22 - 30 mmol/L [facility] [place] Creatinine [Mass/Vol] 0.94 mg/dL 0.52 - 1.04 mg/dL [facility] [place] GFR/1.73 sq M.predicted MDRD (S/P/Bld) [Vol rate/Area] 88.7 mL/min/{1.73_m2} - PINF [facility] [place] Comment on above: Calculation based on the Chronic Kidney Disease Epidemiology Collaboration (CKD-EPI) equation refit without adjustment for race Glucose [Mass/Vol] 77 mg/dL 70 - 100 mg/dL [facility] [place] Interpretation and review of laboratory results Abnormal [facility] Potassium [Moles/Vol] 4.4 mmol/L 3.5 - 5.1 mmol/L [facility] [place] Protein [Mass/Vol] 5.5 g/dL Low 6.3 - 8.2 g/dL [facility] [place] Sodium [Moles/Vol] 133 mmol/L Low 135 - 145 mmol/L [facility] [place] Urea nitrogen [Mass/Vol] 27 mg/dL High 7 - 17 mg/dL [facility] No Panel Informationon 04-14 LUCIA Pattern [facility] LUCIA Titer [facility] TESTED BY INDIRECT IMMUNOFLUORESCENCE ASSAY (IFA) [facility] No Panel InformationOrdered By: Faustino Jamison on 04-14-2022 Anti-DNA Antibody [facility] Interpretation and review of laboratory results Normal [facility] Progress Noteon 04-14-2022 Progress Note Nutrition rescreen completed. Patient assigned a level 1. YORDY Viveros Normal [facility] Progress Note Note-Sharyn quinonez POST OPERATIVE DAY # 2 Kiera Bello is a 21 y.o. who was seen & examined today. Her was complicated by: Patient Active Problem List Diagnosis Preeclampsia, severe, third trimester Severe pre-eclampsia in third trimester Today she is doing well without any chief complaint. Her lochia is light. She denies Headache, Chest Pain, Vision Changes, Shortness of Breath, and Epigastric Pain. She is ambulating well. Flatus present. Bowel movement absent. Voiding without difficulty. She is tolerating solids. Pain is controlled yes. Vital Signs: Vitals: 04/13/22 2252 04/13/22 2311 04/14/22 0337 04/14/22 0420 BP: 132/87 125/82 121/86 BP Location: Right arm Patient Position: Sitting Pulse: 97 90 91 Resp: 16 18 Temp: 36.1 ?C (97 ?F) 36.2 ?C (97.2 ?F) 36.4 ?C (97.6 ?F) TempSrc: Temporal Temporal Temporal SpO2: 99% 99% 98% Weight: 73.9 kg Height: Urine Input & Output last 24hrs: Intake/Output Summary (Last 24 hours) at 04/14/2022 0629 Last data filed at 04/14/2022 0343 Gross per 24 hour Intake 400 ml Output 1635 ml Net -1235 ml Physical Exam: GENERAL APPEARANCE: alert, well appearing, in no apparent distress LUNGS: clear to auscultation, no wheezes, rales or rhonchi, symmetric air entry ABDOMEN : fundus firm, no acute ttp EXTREMITIES: no redness or tenderness in the calves or thighs NEUROLOGIC: alert, oriented, normal speech, no focal findings or movement disorder noted Desc; incision: healing well, no drainage, no erythema Labs: Lab Results Component Value Date WBC 19.2 (H) 04/13/2022 HGB 12.9 04/13/2022 HCT 38.2 04/13/2022 MCV 90.2 04/13/2022 PLT 207 04/13/2022 A Antibody Screen: No results found for: LABANTI No results found for: RUBELLAIGG LABOR DELIVERY ??? SCD's ONLY (labor through ambulation) SCD's PLUS Prophylactic Anticoagulation until discharge SCD's PLUS Prophylactic Anticoagulation for 6 weeks SCD's PLUS Therapeutic Anticoagulation for 6 weeks Vaginal Delivery [] BMI ? 40 kg/m2 Delivery All patients Vaginal Delivery [] BMI ? 40 kg/m2 AND [] Antepartum hospitalization ? 72 hours within the past month Delivery 1 Major Risk Factor: [] BMI ? 35 kg/m2 [] Low Risk Thrombophilia [] PPH+RBCs, IR, or operation [] Infection+Antibiotics [] Antepartum hospitalization ? 72 hours within the past month [x] PMH: Sickle Cell, SLE, Cardiac Dz, Active IBD, Active Cancer, Nephrotic Syndrome OR 2 Minor Risk Factors: [] Multiple gestation [] Age > 40 [] PPH ? 1,000cc [] (+)FMH of VTE [] Smoker [] Preeclampsia [] BMI ? 40 kg/m2 AND [] Low Risk Thrombophilia OR ANY OF THE FOLLOWING: [] High Risk Thrombophilia without prior VTE [] Low Risk Thrombophilia with (+)FMH of VTE [] Any single prior VTE ANY OF THE FOLLOWING: [] Already on LMWH/UFH [] Multiple prior VTE [] High Risk Thrombophilia with prior VTE Low Risk Thrombophilia: FVL (heterozygous), Prothrombin (heterozygous), Protein C, Protein S High Risk Thrombophilia: FVL (homozygous), Prothrombin (homozygous), FVL+Prothrombin (heterozygous), Antithrombin III, APLS Assessment/Plan: Kiera Bello is a 21 y.o. POD # 2 s/p pLTCS 2/2 PreEwSF Care - Doing well, VSS - Male - both, breast and bottle feeding - Contraception: Per Private Attending - Encourage ambulation and use of incentive spirometer -Eddy removed on 04/13 - Postop Hb 12.9 - VTE Prophylaxis: Prophylactic Dosing until Discharge starting today PreEwSF TOMASA -BP's noted to be normotensive with rare mild range on Procardia XL 60mg daily -S/p magnesium sulfate for seizure ppx which was run @ 0.5-1 g/hr for renal dosing -Previously trending CBC, CMP and Mag q6 hrs, AM labs pending today -Cr noted to be elevated on admission at 1.15, continues to improve now 0.94 -UOP adequate overnight -C3/4 normal, LUCIA and anti-DNA pending -Continue daily weights -Asx this AM Disposition: Continue current care Based on my clinical assessment, this patient Yes: Plan B - Risks and benefits discussed. safe for self discharge (does not need transport by wheelchair) if she so chooses. Provider's Name: MD Delaney Luciano DO 04/14/2022, 6:29 AM ATTENDING NOTE: I personally saw and evaluated the patient. I reviewed the care provided by the Resident including the patient's medical history, physical exam findings, diagnosis and treatment plan. I also agree with the documentation from the Resident unless otherwise indicated: Pt is doing well. TOMASA is improving. --- Total time spent with the patient was 15 minutes, of which greater than 50% of the time was spent counseling and coordinating care. [facility] 42on 04-13-2022 42 Breast pump use indicated for this pt. Due to: in [facility] and 29 weeks Hospital breast pump, supplies kit, swabs and colostrum collectors provided and set up for patient at the bedside. Instruction given on pump operation, settings, technique and frequency/duration. Return demonstration given by patient. Observation of pumping session and flange fitting done. Flange size 22.5 mm. Mom instructed to double pump every 2-3 hours for 8-10 times per day with at least one pump session between 12 and 6 AM. Suction to be set for comfort but recommend between 20-60%. Reassured patient that it is normal to not collect any significant amounts of breast milk in the first days of pumping, but consistent pumping is important and typically results in increased milk production. Discussed projected amounts and daily goals. Reviewed breast massage and hand expression for increasing milk production. Reviewed colostrum collectors and swabs- how to use and collect colostrum and label swabs/syringes.Breast milk storage guidelines reviewed. Cleaning of pump parts reviewed and basin, soap and clean towels provided for this purpose. Encouragedskin to skin as soon as baby's condition is stable. Discussed plans for home electric breast pump. All questions answered. Will continue to monitor, encourage and support patient. Needs rental pump for home- will speak to [facility] about rental home pump [facility] CARECOORDon 04-13-2022 CARECOORD 21 year old admitted for preeclampsia at 29/2 weeks gestational age. 1 Para 0. delivery. Infant in NICU. Patient is independent and has insurance. She is prepared with her baby supplies. Denies any needs for housing, transportation or food. Discussion on the A. B. C's of safe sleep. Always place your baby on his or her back to sleep, use a firm sleep surface and your baby should not sleep in an adult bed, on a couch or chair. Keep soft objects, toys and loose bedding out of your baby's sleep area. Reviewed post depression. It is common to have blues. This is a normal response to many of the hormonal changes, stress and lack of sleep that go with raising a and physically recovering from the . Don't hesitate to talk to your provider with any concerns. There are resources in your home going booklet. To help prevent germs from spreading to you and your baby, make sure everyone washes their hands before they handle your . Avoid crowds, and keep away from sick people, anyone who is sick with a cough or fever, including family members. To be discharged to home. Denies any concerns at this time. Normal [facility] CAREPLNon 04-13-2022 CAREPLN The patient is Moderately Stable - Low risk of patient condition declining or worsening The clinical goals for the shift include Vitals WDL- goal not met b/p remains elevated. Problem: Goal: Experiences normal course Outcome: Progressing Goal: Appropriate maternal - bonding Outcome: Progressing Goal: Establishment of feeding pattern Outcome: Progressing Goal: Incisions, wounds, or drain sites healing without S/S of infection Outcome: Progressing Problem: Pain - Adult Goal: Verbalizes/displays adequate comfort level or baseline comfort level Outcome: Progressing Problem: Infection - Adult Goal: Absence of infection at discharge Outcome: Progressing Goal: Absence of infection during hospitalization Outcome: Progressing Goal: Absence of fever/infection during anticipated neutropenic period Outcome: Progressing Problem: Safety - Adult Goal: Free from fall injury Outcome: Progressing Problem: Discharge Planning Goal: Discharge to home or other facility with appropriate resources Outcome: Progressing Normal [facility] CBC panel Auto (Bld)Ordered By: Lizzie Corbin on 04-13-2022 Erythrocyte distribution width (RBC) [Ratio] 13.3 % 11.5 - 14.5 % [facility] Hematocrit (Bld) [Volume fraction] 38.2 % 35.0 - 47.0 % [facility] Hemoglobin (Bld) [Mass/Vol] 12.9 g/dL 11.7 - 16.0 g/dL [facility] [place] Interpretation and review of laboratory results Abnormal [facility] MCH (RBC) [Entitic mass] 30.4 pg 26.0 - 34.0 pg [facility] [place] MCHC (RBC) [Mass/Vol] 33.6 % 32.0 - 36.0 % [facility] MCV (RBC) [Entitic vol] 90.2 fL 80.0 - 98.0 fL [facility] Platelet mean volume (Bld) [Entitic vol] 10.0 fL 7.4 - 12.4 fL [facility] [place] Platelets (Bld) [#/Vol] 207 10*3/uL 140 - 440 10*3/uL [facility] RBC (Bld) [#/Vol] 4.23 10*6/uL 3.8 - 5.20 10*6/uL [facility] [place] WBC (Bld) [#/Vol] 19.2 10*3/uL High 3.6 - 10.7 10*3/uL [facility] Comprehensive metabolic 1998 panelon 04-13-2022 Albumin [Mass/Vol] 3.5 g/dL 3.5 - 5.0 g/dL [facility] [place] ALP [Catalytic activity/Vol] 273 U/L High 38 - 126 U/L [facility] [place] ALT [Catalytic activity/Vol] 23 U/L 0 - 34 U/L [facility] [place] Anion gap [Moles/Vol] 2 mmol/L Low 3 - 13 mmol/L [facility] [place] AST [Catalytic activity/Vol] 55 U/L High 15 - 46 U/L [facility] [place] Bilirubin [Mass/Vol] 0.3 mg/dL 0.2 - 1 .3 mg/dL [facility] [place] Calcium [Mass/Vol] 8.4 mg/dL 8.4 - 10. 4 mg/dL [facility] [place] Chloride [Moles/Vol] 107 mmol/L 98 - 10 7 mmol/L [facility] [place] CO2 [Moles/Vol] 24 mmol/L 22 - 30 mmol/L [facility] [place] Creatinine [Mass/Vol] 1.08 mg/dL High 0.52 - 1.04 mg/dL [facility] [place] GFR/1.73 sq M.predicted MDRD (S/P/Bld) [Vol rate/Area] 75.1 mL/min/{1.73_m2} - PINF [facility] [place] Comment on above: Calculation based on the Chronic Kidney Disease Epidemiology Collaboration (CKD-EPI) equation refit without adjustment for race Glucose [Mass/Vol] 118 mg/dL High 70 - 100 mg/dL [facility] [place] Interpretation and review of laboratory results Abnormal [facility] [place] Potassium [Moles/Vol] 4.7 mmol/L 3.5 - 5.1 mmol/L [facility] [place] Protein [Mass/Vol] 6.6 g/dL 6.3 - 8.2 g/dL [facility] [place] Sodium [Moles/Vol] 132 mmol/L Low 135 - 145 mmol/L [facility] [place] Urea nitrogen [Mass/Vol] 31 mg/dL High 7 - 17 mg/dL [facility] Albumin [Mass/Vol] 3.4 g/dL Low 3.5 - 5.0 g/dL [facility] [place] ALP [Catalytic activity/Vol] 286 U/L High 38 - 126 U/L [facility] [place] ALT [Catalytic activity/Vol] 20 U/L 0 - 34 U/L [facility] [place] Anion gap [Moles/Vol] 8 mmol/L 3 - 13 mmol/L [facility] [place] AST [Catalytic activity/Vol] 50 U/L High 15 - 46 U/L [facility] [place] Bilirubin [Mass/Vol] 0.3 mg/dL 0.2 - 1 .3 mg/dL [facility] [place] Calcium [Mass/Vol] 8.4 mg/dL 8.4 - 10. 4 mg/dL [facility] [place] Chloride [Moles/Vol] 104 mmol/L 98 - 10 7 mmol/L [facility] [place] CO2 [Moles/Vol] 19 mmol/L Low 22 - 30 mmol/L [facility] [place] Creatinine [Mass/Vol] 1.01 mg/dL 0.52 - 1.04 mg/dL [facility] [place] GFR/1.73 sq M.predicted MDRD (S/P/Bld) [Vol rate/Area] 81.4 mL/min/{1.73_m2} - PINF [facility] [place] Comment on above: Calculation based on the Chronic Kidney Disease Epidemiology Collaboration (CKD-EPI) equation refit without adjustment for race Glucose [Mass/Vol] 129 mg/dL High 70 - 100 mg/dL [facility] [place] Potassium [Moles/Vol] 4.8 mmol/L 3.5 - 5.1 mmol/L [facility] [place] Protein [Mass/Vol] 6.7 g/dL 6.3 - 8.2 g/dL [facility] [place] Sodium [Moles/Vol] 132 mmol/L Low 135 - 145 mmol/L [facility] [place] Urea nitrogen [Mass/Vol] 29 mg/dL High 7 - 17 mg/dL [facility] [place] Albumin [Mass/Vol] 3.1 g/dL Low 3.5 - 5.0 g/dL [facility] [place] ALP [Catalytic activity/Vol] 269 U/L High 38 - 126 U/L [facility] [place] ALT [Catalytic activity/Vol] 19 U/L 0 - 34 U/L [facility] [place] Anion gap [Moles/Vol] 6 mmol/L 3 - 13 mmol/L [facility] [place] AST [Catalytic activity/Vol] 43 U/L 15 - 46 U/L [facility] [place] Bilirubin [Mass/Vol] 0.2 mg/dL 0.2 - 1 .3 mg/dL [facility] [place] Calcium [Mass/Vol] 8.3 mg/dL Low 8.4 - 10. 4 mg/dL [facility] [place] Chloride [Moles/Vol] 109 mmol/L High 98 - 10 7 mmol/L [facility] [place] CO2 [Moles/Vol] 19 mmol/L Low 22 - 30 mmol/L [facility] [place] Creatinine [Mass/Vol] 1.09 mg/dL High 0.52 - 1.04 mg/dL [facility] [place] GFR/1.73 sq M.predicted MDRD (S/P/Bld) [Vol rate/Area] 74.3 mL/min/{1.73_m2} - PINF [facility] [place] Comment on above: Calculation based on the Chronic Kidney Disease Epidemiology Collaboration (CKD-EPI) equation refit without adjustment for race Glucose [Mass/Vol] 155 mg/dL High 70 - 100 mg/dL [facility] [place] Potassium [Moles/Vol] 4.6 mmol/L 3.5 - 5.1 mmol/L [facility] [place] Protein [Mass/Vol] 6.1 g/dL Low 6.3 - 8.2 g/dL [facility] [place] Sodium [Moles/Vol] 134 mmol/L Low 135 - 145 mmol/L [facility] [place] Urea nitrogen [Mass/Vol] 29 mg/dL High 7 - 17 mg/dL [facility] [place] Laboratory - Chemistry and C hemistry - challengeOrdered By: Alphonse Mota on 04-13-2022 Magnesium [Mass/Vol] 5.4 mg/dL Critically high 1.6 - 2.3 mg/dL [facility] [place] Laboratory - Chemistry and C hemistry - challengeon 04-13-2022 Magnesium [Mass/Vol] 4.6 mg/dL High 1.6 - 2 .3 mg/dL [facility] [place] Magnesium [Mass/Vol] 4.8 mg/dL High 1.6 - 2 .3 mg/dL [facility] [place] Laboratory - Hematology and Cell countson 04-13-2022 Complement C3 [Mass/Vol] 107 mg/dL 88 - 165 mg/dL [facility] Complement C4 [Mass/Vol] 14 mg/dL 14 - 44 mg/dL [facility] [place] Laboratory - Urinalysison Protein (U) [Mass/Vol] 352 mg/dL High 0 - 12 mg/dL [facility] [place] Magnesium [Mass/Vol]Ordered By: Alphonse Mtoa on 04-13-2022 Interpretation and review of laboratory results Abnormal [facility] No Panel Informationon 04-13 Interpretation and review of laboratory results Abnormal [facility] Interpretation and review of laboratory results Normal [facility] Interpretation and review of laboratory results Abnormal [facility] Interpretation and review of laboratory results Abnormal [facility] Progress Noteon 04-13-2022 Progress Note ---- -------- Attestation signed by Estrella Boyd MD at 04/13/2022 12:51 PM Hospital Care (Independent): I independently saw and evaluated the patient. I agree with the findings and plan of care as documented in the resident's note. POD#1 from [facility]. Doing well meeting milestones. PreEwSF: BP normal to low mild range on Procardia 30mg XL daily. Cr improving to 1.01 from 1.15 on admission. UOP just adequate. Ok for eddy removal. Slight AST elevated to 50. Continue lab trend. Mag on until 184 tonight. Will start lovenox in the AM due to TOMASA - improving. Spinner Continuous PreEwSF symptoms. Plan DC home POD#3 or 4. --- Total time spent with the patient was 15 minutes, of which greater than 50% of the time was spent counseling and coordinating care. -------- Note- POST OPERATIVE DAY # 1 Kiera Bello is a 21 y.o. who was seen & examined today. Her was complicated by: Patient Active Problem List Diagnosis Preeclampsia, severe, third trimester Severe pre-eclampsia in third trimester Today she is doing well without any chief complaint. Her lochia is moderate. She denies Headache, Chest Pain, Vision Changes, and Shortness of Breath. She is ambulating well. Flatus present. Bowel movement absent. Eddy catheter still in place. She is tolerating solids. Pain is controlled yes. Vital Signs: Vitals: 04/12/22 2258 04/12/22 2300 04/13/22 0339 04/13/22 0553 BP: (!) 136/90 (!) 136/90 (!) 132/92 BP Location: Right arm Right arm Left arm Patient Position: Pulse: 69 69 74 Resp: Temp: 36 ?C (96.8 ?F) 36.3 ?C (97.4 ?F) 36.3 ?C (97.4 ?F) TempSrc: Temporal Temporal Temporal SpO2: 96% 96% 97% Weight: 164 lb 9.6 oz (74.7 kg) Height: Urine Input & Output last 24hrs: Intake/Output Summary (Last 24 hours) at 04/13/2022 0637 Last data filed at 04/13/2022 0530 Gross per 24 hour Intake 2684.9 ml Output 962 ml Net 1722.9 ml Physical Exam: Gen: NAD, well appearing HEENT: Normocephalic, Atraumatic, EOMI Resp: Non-labored breathing, no respiratory distress Abd: soft, gravid, appropriately tender, ND, no rebound, no guarding; fundus firm and non-tender Incision: Dermabond in place, healing well without erythema or drainage Ext: No LE edema, no calf tenderness or swelling Labs: Lab Results Component Value Date WBC 19.2 (H) 04/13/2022 HGB 12.9 04/13/2022 HCT 38.2 04/13/2022 MCV 90.2 04/13/2022 PLT 207 04/13/2022 A Antibody Screen: No results found for: LABANTI No results found for: RUBELLAIGG LABOR DELIVERY ??? SCD's ONLY (labor through ambulation) SCD's PLUS Prophylactic Anticoagulation until discharge SCD's PLUS Prophylactic Anticoagulation for 6 weeks SCD's PLUS Therapeutic Anticoagulation for 6 weeks Vaginal Delivery [] BMI ? 40 kg/m2 Delivery All patients Vaginal Delivery [] BMI ? 40 kg/m2 AND [] Antepartum hospitalization ? 72 hours within the past month Delivery 1 Major Risk Factor: [] BMI ? 35 kg/m2 [] Low Risk Thrombophilia [] PPH+RBCs, IR, or operation [] Infection+Antibiotics [] Antepartum hospitalization ? 72 hours within the past month [] PMH: Sickle Cell, SLE, Cardiac Dz, Active IBD, Active Cancer, Nephrotic Syndrome OR 2 Minor Risk Factors: [] Multiple gestation [] Age > 40 [] PPH ? 1,000cc [] (+)FMH of VTE [] Smoker [x] Preeclampsia [] BMI ? 40 kg/m2 AND [] Low Risk Thrombophilia OR ANY OF THE FOLLOWING: [] High Risk Thrombophilia without prior VTE [] Low Risk Thrombophilia with (+)FMH of VTE [] Any single prior VTE ANY OF THE FOLLOWING: [] Already on LMWH/UFH [] Multiple prior VTE [] High Risk Thrombophilia with prior VTE Low Risk Thrombophilia: FVL (heterozygous), Prothrombin (heterozygous), Protein C, Protein S High Risk Thrombophilia: FVL (homozygous), Prothrombin (homozygous), FVL+Prothrombin (heterozygous), Antithrombin III, APLS Assessment/Plan: Kiera Bello is a 21 y.o. POD # 1 s/p PLTCS 2/2 Early Gestational Age and closed cervix at time of recommended delivery Care - Doing well, VSS - Male in NICU - both, breast and bottle feeding - Contraception: Per Private Attending - Encourage ambulation and use of incentive spirometer - D/C eddy catheter and saline lock IV on POD #1 - Postop Hb 12.9 - VTE Prophylaxis: SCD's, lovenox held until deemed stable to start PreEwSF - Transferred from [place] for persistent severe range BP's, BROWN, and N/V x3 days - Started on magnesium sulfate for seizure ppx and neuroprotection and MFM recommended delivery - Trending CBC, CMP, and Magnesium every 6 hours - Magnesium sulfate currently at decreased rate of 0.5g/hr due to TOMASA and has remained within a therap (more content not included)... Normal [facility] ABO and Rh group Confirm Nom (Bld)on 04-12-2022 ABO group Nom (Bld) A [facility] D Ag Ql (RBC) Positive [facility] Absolute lymphocyte countOrd ered By: Dr. Huston on 04-12-2022 Lymphocytes Auto (Unsp spec) [#/Vol] 2.81 10*3/uL 0.83-4.51 [facility] Basophil percentageOrdered B y: Dr. Huston on 04-12-2022 Basophils/100 WBC (Bld) 0.8 % 0-1 [facility] Bilirubin [Mass/Vol] 0.30 mg/dL 0.20-1.00 [facility] Comment on above: For patients on eltr ombopag therapy, use of Dimension [place] TBIL is not recommended. Chloride [Moles/Vol] 111 mmol/L 98-107 [facility] Eosinophils/100 WBC (Bld) 3.1 % 0-5 [facility] Glucose [Mass/Vol] 71 mg/dL 74-106 [facility] LDH [Catalytic activity/Vol] 292 U/L 84-246 [facility] Neutrophils (Bld) [#/Vol] 9.7 10*3/uL 2.0-7.7 [facility] Neutrophils/100 WBC (Bld) 70.2 % 47-70 [facility] Potassium [Moles/Vol] 4.7 mmol/L 3.5-5.1 [facility] Protein [Mass/Vol] 6.7 g/dL 6.4-8.2 [facility] Sodium [Moles/Vol] 141 mmol/L 136-145 [facility] WBC (Bld) [#/Vol] 13.7 10*3/uL 4.4-11.0 [facility] Bilirubin Test strip Ql (U)O rdered By: Dr. Huston on 04-12-2022 Bilirubin Ql (U) Negative Negative [facility] Blood erythrocytes count (nu mber/volume)Ordered By: Dr. Huston on 04-12-2022 RBC (Bld) [#/Vol] 4.70 10*6/uL 4.2-5.4 [facility] Blood hemoglobin measurement (mass/volume)Ordered By: Dr. Huston on 04-12-2022 Hemoglobin (Bld) [Mass/Vol] 14.3 g/dL 12.0-15.0 [facility] Blood lymphocytes/100 leukoc ytesOrdered By: Dr. Huston on 04-12-2022 Lymphocytes/100 WBC (Bld) 20.5 % 19-41 [facility] Blood monocytes/100 leukocyt esOrdered By: Dr. Huston on 04-12-2022 Monocytes/100 WBC (Bld) 4.3 % 0-10 [facility] Blood platelet mean volumeOr dered By: Dr. Huston on 04-12-2022 Platelet mean volume (Bld) [Entitic vol] 12.0 fL 6.2-12.0 [facility] Blood type and Crossmatch pa poncho (Bld)on 04-12-2022 ABO group Nom (Bld) A [facility] Blood group antibody screen GEL Ql Negative [facility] D Ag Ql (RBC) Positive [facility] CBC panel Auto (Bld)Ordered By: Mark Hampton on 04-12-2022 Erythrocyte distribution width (RBC) [Ratio] 13.1 % 11.5 - 14.5 % [facility] Hematocrit (Bld) [Volume fraction] 40.8 % 35.0 - 47.0 % [facility] Hemoglobin (Bld) [Mass/Vol] 13.7 g/dL 11.7 - 16.0 g/dL [facility] Interpretation and review of laboratory results Abnormal [facility] MCH (RBC) [Entitic mass] 30.1 pg 26.0 - 34.0 pg [facility] MCHC (RBC) [Mass/Vol] 33.5 % 32.0 - 36.0 % [facility] MCV (RBC) [Entitic vol] 90.0 fL 80.0 - 98.0 fL [facility] Platelet mean volume (Bld) [Entitic vol] 10.1 fL 7.4 - 12.4 fL [facility] Platelets (Bld) [#/Vol] 237 10*3/uL 140 - 440 10*3/uL [facility] RBC (Bld) [#/Vol] 4.54 10*6/uL 3.8 - 5.20 10*6/uL [facility] WBC (Bld) [#/Vol] 17.3 10*3/uL High 3.6 - 10.7 10*3/uL [facility] Comprehensive metabolic 1998 panelon 04-12-2022 Albumin [Mass/Vol] 3.1 g/dL Low 3.5 - 5.0 g/dL [facility] ALP [Catalytic activity/Vol] 313 U/L High 38 - 126 U/L [facility] ALT [Catalytic activity/Vol] 17 U/L 0 - 34 U/L [facility] Anion gap [Moles/Vol] 11 mmol/L 3 - 13 mmol/L [facility] AST [Catalytic activity/Vol] 36 U/L 15 - 46 U/L [facility] Bilirubin [Mass/Vol] 0.3 mg/dL 0.2 - 1 .3 mg/dL [facility] Calcium [Mass/Vol] 8.8 mg/dL 8.4 - 10. 4 mg/dL [facility] Chloride [Moles/Vol] 108 mmol/L High 98 - 10 7 mmol/L [facility] CO2 [Moles/Vol] 14 mmol/L Low 22 - 30 mmol/L [facility] Creatinine [Mass/Vol] 1.12 mg/dL High 0.52 - 1.04 mg/dL [facility] GFR/1.73 sq M.predicted MDRD (S/P/Bld) [Vol rate/Area] 71.9 mL/min/{1.73_m2} - PINF [facility] Comment on above: Calculation based on the Chronic Kidney Disease Epidemiology Collaboration (CKD-EPI) equation refit without adjustment for race Glucose [Mass/Vol] 141 mg/dL High 70 - 100 mg/dL [facility] Potassium [Moles/Vol] 4.6 mmol/L 3.5 - 5.1 mmol/L [facility] Protein [Mass/Vol] 5.8 g/dL Low 6.3 - 8.2 g/dL [facility] Sodium [Moles/Vol] 132 mmol/L Low 135 - 145 mmol/L [facility] Urea nitrogen [Mass/Vol] 29 mg/dL High 7 - 17 mg/dL [facility] Slightly Hemolyzed. Interpret ALKALINE PHOSPHATASE, AST, and POTASSIUM with caution. [facility] Albumin [Mass/Vol] 3.6 g/dL 3.5 - 5.0 g/dL [facility] ALP [Catalytic activity/Vol] 346 U/L High 38 - 126 U/L [facility] ALT [Catalytic activity/Vol] 17 U/L 0 - 34 U/L [facility] Anion gap [Moles/Vol] 6 mmol/L 3 - 13 mmol/L [facility] AST [Catalytic activity/Vol] 40 U/L 15 - 46 U/L [facility] Bilirubin [Mass/Vol] 0.3 mg/dL 0.2 - 1 .3 mg/dL [facility] Calcium [Mass/Vol] 9.6 mg/dL 8.4 - 10. 4 mg/dL [facility] Chloride [Moles/Vol] 110 mmol/L High 98 - 10 7 mmol/L [facility] CO2 [Moles/Vol] 19 mmol/L Low 22 - 30 mmol/L [facility] Creatinine [Mass/Vol] 1.15 mg/dL High 0.52 - 1.04 mg/dL [facility] GFR/1.73 sq M.predicted MDRD (S/P/Bld) [Vol rate/Area] 69.7 mL/min/{1.73_m2} - PINF [facility] Comment on above: Calculation based on the Chronic Kidney Disease Epidemiology Collaboration (CKD-EPI) equation refit without adjustment for race Glucose [Mass/Vol] 97 mg/dL 70 - 100 mg/dL [facility] Potassium [Moles/Vol] 4.7 mmol/L 3.5 - 5.1 mmol/L [facility] Protein [Mass/Vol] 6.9 g/dL 6.3 - 8.2 g/dL [facility] Sodium [Moles/Vol] 135 mmol/L 135 - 145 mmol/L [facility] Urea nitrogen [Mass/Vol] 30 mg/dL High 7 - 17 mg/dL [facility] Creatinine (U) [Mass/Vol]on 04-12-2022 CREATININE, URINE 144.2 mg/dL No Range [facility] Determination of erythrocyte mean corpuscular volume (MCV)Ordered By: Dr. Huston on 04-12-2022 MCV (RBC) [Entitic vol] 88.3 fL 81-99 [facility] Hematocrit Auto (Bld) [Volum e fraction]Ordered By: Dr. Huston on 04-12-2022 Hematocrit (Bld) [Volume fraction] 41.5 % 37-47 [facility] Ketones Test strip Ql (U)Ord ered By: Dr. Huston on 04-12-2022 Ketones Ql (U) Negative Negative [facility] Labor and Delivery Noteon Labor and Delivery Note Patient: Kiera Bello : 2000 Date of Procedure: 04/12/22 Principal Problem: Preeclampsia, severe, third trimester Active Problems: Severe pre-eclampsia in third trimester PREOPERATIVE DIAGNOSES: 1. at 29w2d 2. Primary Delivery 3. PreEclampsia with Severe Features 4. Acute Renal Injury 5. Growth Restriction POSTOPERATIVE DIAGNOSES: 1. Same 2. Living , Male PROCEDURE: Primary Low-Transverse Delivery, Intrauterine Device Insertion SURGEON: Dr. Harris ASST: Dr. MONO HERRERA DO ANESTHESIA: Spinal ANTIBIOTIC(S): Cefazolin VAG PREP: No FINDINGS: Normal appearing uterus, fallopian tubes, ovaries. Placenta Abruption 20%. Meconium stained fluid. FLUIDS: 700 ml crystalloids URINE: 15 ml EBL: 500 ml QBL: 490 ml DRAINS: eddy catheter SPECIMENS: Placenta, Cord Gas COMPLICATIONS: None CONDITION: Good, transferred to : post anesthesia recovery Intrauterine Device Information: [employer], Lot [id number],[facility] Jun 2026 FINDINGS: Live Male , Cephalic presentation APGARS 1 min: 9 5 min: 9 Weight: 2#10, 1200 grams Tubes and ovaries: normal. Description: Normal DETAILS OF PROCEDURE: Patient was brought into the operating room and she was placed in the supine position slightly tilted to the left. The abdomen was prepped and draped in the usual manner. Anesthesia level was checked and was found to be adequate. The abdomen was entered through a pfannenstiel incision. The incision was carried through the subcutaneous tissue to the fascia which was nicked in the midline and carried transversely using coleman scissors. Kochers were used to grasp the edges of the fascia and sharp and blunt dissection used to reflect the underlying rectus abdominis muscles. The muscles were in the midline bluntly and sharply exposing the parietal peritoneum. The peritoneum was entered bluntly. The peritoneal incision was extended bluntly with good visualization of bladder. Bladder retractor was placed as well as Adam retractor. The lower uterine segment was opened with a scalpel. The amniotic cavity was entered and Meconium amniotic fluid was noted. Bladder retractor and Adam retractor were removed, and baby was delivered from the cephalic presentation with fundal pressure without difficuty.The baby was handed over to the NICU. Placenta was extracted intact with gentle traction. There was a noted moderate size clot behind the placenta which was remarkable for placental abruption. The uterus was exteriorized and wrapped in a wet lap. The uterine cavity was swept and cleared of all clots and debris using a dry lap. The uterine incision was closed in 2 layers using locked 0 Monocryl. The serosal edges were closed with 3-0 Monocryl. The IUD was placed with ring forceps and strings were placed through the cervix. Hemostasis was ensured. The uterus was replaced in the abdomen. Hemostasis of the operative field was ensured and the gutters were cleared of all clots and debris. Fascia was closed with 1 PDS in a running fashion x2. Subcutaneous closure 3-0 Monocryl. Hemostasis was ensured. Skin closure was performed with 4-0 monocryl suture. Sponge, needle and instrument counts were correct twice. Patient was transferred to the recovery room in satisfactory stable condition. MONO HERRERA DO 04/12/2022 7:46 PM LABOR DELIVERY ??? SCD's ONLY (labor through ambulation) SCD's PLUS Prophylactic Anticoagulation until discharge SCD's PLUS Prophylactic Anticoagulation for 6 weeks SCD's PLUS Therapeutic Anticoagulation for 6 weeks Vaginal Delivery [] BMI ? 40 kg/m2 Delivery All patients Vaginal Delivery [] BMI ? 40 kg/m2 AND [] Antepartum hospitalization ? 72 hours within the past month Delivery 1 Major Risk Factor: [] BMI ? 35 kg/m2 [] Low Risk Thrombophilia [] PPH+RBCs, IR, or operation [] Infection+Antibiotics [] Antepartum hospitalization ? 72 hours within the past month [x] PMH: Sickle Cell, SLE, Cardiac Dz, Active IBD, Active Cancer, Nephrotic Syndrome OR 2 Minor Risk Factors: [] Multiple gestation [] Age > 40 [] PPH ? 1,000cc [] (+)FMH of VTE [] Smoker [x] Preeclampsia [] BMI ? 40 kg/m2 AND [] Low Risk Thrombophilia OR ANY OF THE FOLLOWING: [] High Risk Thrombophilia without prior VTE [] Low Risk Thrombophilia with (+)FMH of VTE [] Any single prior VTE ANY OF THE FOLLOWING: [] Already on LMWH/UFH [] Multiple prior VTE [] High Risk Thrombophilia with prior VTE Low Risk Thrombophilia: FVL (heterozygous), Prothrombin (heterozygous), Protein C, Protein S High Risk Thrombophilia: FVL (homozygous), Prothrombin (homozygous), FVL+Prothrombin (heterozygous), Antithrombin III, APLS VTE Prophylaxis: Prophylactic Dosing until Discharge (Held until AM labs) ATTENDING NOTE: I reviewed the note from the R (more content not included)... Normal [facility] Laboratory - Chemistry and C hemistry - challengeon 04-12-2022 Sodium (24H U) [Mass/Vol] 43 mmol/L 30 - 90 mmol/L [facility] Magnesium [Mass/Vol] 4.9 mg/dL High 1.6 - 2 .3 mg/dL [facility] Magnesium [Mass/Vol] 4.7 mg/dL High 1.6 - 2 .3 mg/dL [facility] Laboratory - Chemistry and C hemistry - challengeOrdered By: Dr. Hustno on 04-12-2022 ALP [Catalytic activity/Vol] 305 U/L 45-117 [facility] ALT [Catalytic activity/Vol] 20 U/L 13-56 [facility] CO2 [Moles/Vol] 24.0 mmol/L 21.0-32.0 [facility] Globulin (S) [Mass/Vol] 4.0 g/dL 2.2-4.2 [facility] Urea nitrogen/Creatinine [Mass ratio] 25.0 mg/mg 10-20 [facility] Laboratory - Hematology and Cell countsOrdered By: Dr. Huston on 04-12-2022 Erythrocyte distribution width (RBC) [Entitic vol] 41.3 fL 35.1-43.9 [facility] Erythrocyte distribution width (RBC) [Ratio] 12.7 % 11.6-14.6 [facility] Immature granulocytes/100 WBC (Bld) 1.100 % 0.0-0.9 [facility] Comment on above: IG% - Immature Granu locytes (promyelocytes, myelocytes and metamyelocytes) > 1% indicates that a LEFT SHIFT is Present. MCH (RBC) [Entitic mass] 30.4 pg 27.0-32.0 [facility] Nucleated RBC/100 WBC (Bld) [Ratio] 0 % 0-5 [facility] Laboratory - Urinalysison Protein (U) [Mass/Vol] mg/dL High 0 - 12 mg/dL [facility] MCHC Auto (RBC) [Mass/Vol]Or dered By: Dr. Huston on 04-12-2022 MCHC (RBC) [Mass/Vol] 34.5 g/dL 32-36 [facility] Magnesium [Mass/Vol]on 04-12 Slightly Hemolyzed. Interpret with caution. [facility] Nitrite Test strip Ql (U)Ord ered By: Dr. Huston on 04-12-2022 Nitrite Ql (U) Positive Negative [facility] No Panel Informationon 04-12 Interpretation and review of laboratory results Normal [facility] Interpretation and review of laboratory results Abnormal [facility] Interpretation and review of laboratory results Abnormal [facility] Interpretation and review of laboratory results Abnormal [facility] No Panel InformationOrdered By: Dr. Huston on 04-12-2022 Estimated Creatinine Clearance Calc 63.46 ml/min [facility] Estimated GFR (MDRD) Amer 75 mL/min >60 [facility] Comment on above: GFR Calc Estimated GFR (MDRD) Non-Af Amer 62 mL/min >60 [facility] Comment on above: Non- GFR Calc Platelets bldOrdered By: Dr. Huston on 04-12-2022 Platelets (Bld) [#/Vol] 249 10*3/uL 150-450 [facility] Progress Noteon 04-12-2022 Progress Note Consult by Neonatology Request by OB: Dr. Mclaughlin Reason for Consult: 29 week gestation, imminent delivery Maternal History and current problem: PreE with severe features, elevated urine creatinine Significant history: preE, threatened miscarriage in early /vaginal bleeding Medications: Betamethasone, magnesium, procardia Betamethasone given: yes, one dose at 11:30 am 04/12/22 Labs: Blood type: A+ Antibody: neg GBS: unknown Hepatitis B ant: neg RPR: NR Rubella: immune HIV: neg Hepatitis C: neg GC/CT: neg HSV history: nothing documented CF: unknown Glucose challenge test: passed, one hour Present for Consult: Mother, father, Maya Mahoney APRN, and Barb Diaz APRN Baby Sex: male Baby Name: Stevan US findings: 1st trimester dating EDC by: ultrasound EFW: 1187 grams Any known anomalies: no I discussed: Survival statistics Delivery room management: Delayed cord clamping, possible need for CPAP, Oxygen, intubation and surfactant. IV access, possible need for advanced resuscitation, possible need for umbilical lines. Baby is a full resuscitation. Respiratory distress syndrome Feeding with NG tube and benefit of MBM. Mom plans on providing MBM. Feeding readiness and growth expectations Apnea of prematurity and caffeine Heart Murmur: PDA Neurodevelopmental Outcome and Risk: IVH Physiologic criteria for discharge and timing of discharge estimate from NICU Potential need for transfer to [facility] if needs esclation of care, based on a variety of factors. Handouts given. No further questions. A/P: Patient is a 21 Year old At 29 Weeks 2 Days by ultrasound With 1. Current Management per OB 2. NICU to attend delivery 3. Call NICU if further questions. 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 Due to early gestation and closed cervix, recommendation is to proceed with PCD. Bps are currently controlled and patient asymptomatic along with cat I FHT so is unscheduled but not emergent. Safety huddle performed with charge manager, patient's primary RN, residents, attending, NICU staff and OB anesthesia in attendance. Decision made to proceed with unscheduled PCD at [address] Harris and hide buffer are available. All in agreement. Harris Beltre, 04/12/2022 5:30 PM Normal [facility] Protein Test strip Ql (U)Ord ered By: Dr. Huston on 04-12-2022 Protein Ql (U) 500 mg/dl Negative [facility] Serum or plasma albumin kemi urement (mass/volume)Ordered By: Dr. Huston on 04-12-2022 Albumin [Mass/Vol] 2.7 g/dL 3.2-5.0 [facility] Serum or plasma albumin/glob ulin mass ratioOrdered By: Dr. Huston on 04-12-2022 Albumin/Globulin [Mass ratio] 0.7 {ratio} 0.9-2.4 [facility] Serum or plasma calcium kemi urement (mass/volume)Ordered By: Dr. Huston on 04-12-2022 Calcium [Mass/Vol] 10.2 mg/dL 8.5-10.1 [facility] Serum or plasma creatinine m easurement (mass/volume)Ordered By: Dr. Huston on 04-12-2022 Creatinine [Mass/Vol] 1.16 mg/dL 0.55-1.02 [facility] Comment on above: The validity of the calculated GFR & GFRAA in patients over 70 years has not been determined. Clinical correlation is essential. Serum or plasma urea nitroge n measurement (mass/volume)Ordered By: Dr. Huston on 04-12-2022 Urea nitrogen [Mass/Vol] 29 mg/dL 7-18 [facility] Thin prep Papanicolaou smear with manual screeningOrdered By: Dr. Huston on 04-12-2022 Thin prep Papanicolaou smear with manual screening 24 U/L 15-37 [facility] Thin prep Papanicolaou smear with manual screening 6 5-15 [facility] US OB FOLLOW UP TRANSABDOMIN AL APPROACHon 04-12-2022 US OB FOLLOW UP TRANSABDOMINAL APPROACH OBSTETRICS REPORT (Signed Final 04/12/2022 04:02 pm) PATIENT INFO: ID #: [id number] : [birth year] (21 yrs)(F) Name: KIERA BELLO Visit Date: 04/12/2022 03:51 pm PERFORMED BY: Attending: Gai Mclaughlin MD Performed By: Brandee Ferrera RDMS Referred By: HARRIS BELTRE Location: [facility] IP Visit Type: Outpatient -Triage SERVICE(S) PROVIDED: [place] [id number] BPP w/out NST 73103 US Doppler umbilical art 61439 INDICATIONS: Preeclampsia EVALUATION: Num Of Fetuses: 1 Heart Rate(bpm): 117 Cardiac Activity: Regular rhythm Lie: Longitudinal Presentation: Cephalic Placenta: Anterior Amniotic Fluid MONIKA FV: Within normal limits MONIKA Sum(cm) %Tile Largest Pocket(cm) 10.6 17 3 RUQ(cm) RLQ(cm) LUQ(cm) LLQ(cm) 3 2.6 2.2 2.8 BIOPHYSICAL EVALUATION: Amniotic F.V: Within normal limits F. Tone: Observed F. Movement: Observed Score: 11/01 F. Breathing: Observed BIOMETRY: BPD: 78.1 mm G.Age: 31w 2d 92 % OFD: 93.5 mm HC: 274.8 mm G.Age: 30w 0d 37 % AC: 228 mm G.Age: 27w 1d 3 % FL: 53.9 mm G.Age: 28w 4d 17 % LV: 6.04 mm CI: 83.5 % 70 - 86 FL/HC: 19.6 % 19.6 - 20.8 HC/AC: 1.21 0.99 - 1.21 FL/BPD: 69.0 % 71 - 87 FL/AC: 23.6 % 20 - 24 Est. FW: 1187 gm 2 lb 10 oz 36 % GESTATIONAL AGE: Clinical EDI: 29w 2d EDI: 06/26/22 U/S Today: 29w 2d EDI: 06/26/22 Best: 29w 2d Det. By: Clinical EDI EDI: 06/26/22 ANATOMY: Cranium: Normal appearance Cavum: Suboptimal views Ventricles: Normal appearance Choroid Plexus: Normal appearance Cerebellum: Normal appearance Posterior Fossa: Normal appearance Nuchal Fold: Normal appearance Face: Suboptimal views Lips: Suboptimal views Palate: Suboptimal views Thoracic: Normal appearance Heart: Normal appearance RVOT: Normal appearance LVOT: Normal appearance Aortic Arch: Suboptimal views Ductal Arch: Suboptimal views Diaphragm: Normal appearance Stomach: Normal appearance Abdomen: Normal appearance Abdominal Wall: Normal appearance Cord Vessels: Normal 3-Vessel Cord Kidneys: Normal appearance Bladder: Normal appearance Spine: Suboptimal views Upper Extremities: Present Lower Extremities: Present DOPPLER - VESSELS: Umbilical Artery S/D %tile RI %tile PI %tile PSV (cm/s) 4.15 94 0.75 91 1.4 > 97.5 40.14 Comment: The umbilical artery Doppler S/D is within normal limits for this gestational age. Gia Mclaughlin MD Electronically Signed Final Report 04/12/2022 04:02 pm IMPRESSION: Lui live intrauterine at 29w 2d. growth restriction based upon AC; EFW 1187 grams, which is at the 36% for this gestational age. The amniotic fluid index is 10.6cm, which is within normal limits. BPP 8/8 elevated UAD See IP notes for recommendations Ultrasound is not diagnostic of chromosomal aneuploidy and does not detect all subtle defects. Normal ultrasound findings do not guarantee normal outcomes. Normal [facility] Urine blood detectionOrdered By: Dr. Huston on 04-12-2022 RBC Ql (U) 25 /ul Negative [facility] Urine clarityOrdered By: Dr. Huston on 04-12-2022 Clarity (U) Sl. Cloudy Clear [facility] Urine color determinationOrd ered By: Dr. Huston on 04-12-2022 Color (U) Yellow Yellow [facility] Urine creatinine measurement (mass/volume)Ordered By: Dr. Huston on 04-12-2022 Creatinine (U) [Mass/Vol] 307.00 mg/dL NO RANGE EST. [facility] Urine glucose detectionOrder ed By: Dr. Huston on 04-12-2022 Glucose Ql (U) Normal mg/dl Normal [facility] Urine leukocyte esterase det ection by dipstickOrdered By: Dr. Huston on 04-12-2022 Leukocyte esterase Test strip Ql (U) 100 /ul Negative [facility] Urine pHOrdered By: Dr. Sivakumar flores on 04-12-2022 pH (U) 6.0 [pH] 5.0 - 8.0 [facility] Urine protein measurement (m ass/volume)Ordered By: Dr. Huston on 04-12-2022 Protein (U) [Mass/Vol] 3082.1 mg/dL 0.0-11.8 [facility] Urine protein/creatinine mas s ratioOrdered By: Dr. Huston on 04-12-2022 Protein/Creatinine (U) [Mass ratio] 55718 mg/g CRE 0-200 [facility] Urine specific gravity measu rementOrdered By: Dr. Huston on 04-12-2022 Specific gravity (U) [Rel density] 1.020 1.002-1.030 [facility] Urobilinogen Auto test strip Ql (U)Ordered By: Dr. Huston on 04-12-2022 Urobilinogen Ql (U) Normal mg/dl Normal [facility] Absolute lymphocyte countOrd ered By: Dr. Huston on 03-29-2022 Lymphocytes Auto (Unsp spec) [#/Vol] 2.32 10*3/uL 0.83-4.51 [facility] Basophil percentageOrdered B y: Dr. Huston on 03-29-2022 Basophils/100 WBC (Bld) 0.7 % 0-1 [facility] Eosinophils/100 WBC (Bld) 6.3 % 0-5 [facility] Neutrophils (Bld) [#/Vol] 7.3 10*3/uL 2.0-7.7 [facility] Neutrophils/100 WBC (Bld) 65.2 % 47-70 [facility] WBC (Bld) [#/Vol] 11.2 10*3/uL 4.4-11.0 [facility] Blood erythrocytes count (nu mber/volume)Ordered By: Dr. Huston on 03-29-2022 RBC (Bld) [#/Vol] 3.88 10*6/uL 4.2-5.4 [facility] Blood hemoglobin measurement (mass/volume)Ordered By: Dr. Huston on 03-29-2022 Hemoglobin (Bld) [Mass/Vol] 12.1 g/dL 12.0-15.0 [facility] Blood lymphocytes/100 leukoc ytesOrdered By: Dr. Huston on 03-29-2022 Lymphocytes/100 WBC (Bld) 20.8 % 19-41 [facility] Blood monocytes/100 leukocyt esOrdered By: Dr. Huston on 03-29-2022 Monocytes/100 WBC (Bld) 6.0 % 0-10 [facility] Blood platelet mean volumeOr dered By: Dr. Huston on 03-29-2022 Platelet mean volume (Bld) [Entitic vol] 10.8 fL 6.2-12.0 [facility] Determination of erythrocyte mean corpuscular volume (MCV)Ordered By: Dr. Huston on 03-29-2022 MCV (RBC) [Entitic vol] 92.0 fL 81-99 [facility] Gestational diabetes screen 1-hour screen with 50g oral glucose loadOrdered By: Dr. Huston on 03-29-2022 Glucose 1 Hr post 50 g glucose PO [Mass/Vol] 131 mg/dL 70-140 [facility] Hematocrit Auto (Bld) [Volum e fraction]Ordered By: Dr. Huston on 03-29-2022 Hematocrit (Bld) [Volume fraction] 35.7 % 37-47 [facility] Laboratory - Hematology and Cell countsOrdered By: Dr. Huston on 03-29-2022 Erythrocyte distribution width (RBC) [Entitic vol] 40.5 fL 35.1-43.9 [facility] Erythrocyte distribution width (RBC) [Ratio] 12.2 % 11.6-14.6 [facility] Immature granulocytes/100 WBC (Bld) 1.000 % 0.0-0.9 [facility] Comment on above: IG% - Immature Granu locytes (promyelocytes, myelocytes and metamyelocytes) > 1% indicates that a LEFT SHIFT is Present. MCH (RBC) [Entitic mass] 31.2 pg 27.0-32.0 [facility] Nucleated RBC/100 WBC (Bld) [Ratio] 0 % 0-5 [facility] MCHC Auto (RBC) [Mass/Vol]Or dered By: Dr. Huston on 03-29-2022 MCHC (RBC) [Mass/Vol] 33.9 g/dL 32-36 [facility] Platelets bldOrdered By: Dr. Huston on 03-29-2022 Platelets (Bld) [#/Vol] 249 10*3/uL 150-450 [facility] Chlamydia sp identified Org specific cx Nom (Genital specimen)on 01-05-2022 External Chlamydia Screen Negative Negative [facility] Comment on above: previously positive on 10/21/21 Chlamydia trachomatis rRNA d etection by probe and target amplification methodOrdered By: Dr. Huston on 01-05-2022 C. trachomatis rRNA ÁNGEL+probe Ql (Unsp spec) Negative Negative [facility] Laboratory - Microbiology an d Antimicrobial susceptibilityOrdered By: Dr. Huston on 01-05-2022 N. gonorrhoeae DNA ÁNGEL+probe Ql (Unsp spec) Negative Negative [facility] Comment on above: Performed at: =[address] [id number] Director: Emilia Barraza MD, Phone: [phone] No Panel Informationon 01-05 External Gonorrhea Screen Negative Negative [facility] Dr. Huston from [facility] OB called in to verify labs with Ayo MORRISSEY at 1750 in 04/12/22 [facility] Absolute lymphocyte counton 11-04-2021 Lymphocytes Auto (Unsp spec) [#/Vol] 1.75 10*3/uL 0.83-4.51 [facility] Work Phone: Basophil percentageon 2021 Basophils/100 WBC (Bld) 0.6 % 0-1 [facility] Work Phone: Eosinophils/100 WBC (Bld) 4.1 % 0-5 [facility] Work Phone: Neutrophils (Bld) [#/Vol] 5.7 10*3/uL 2.0-7.7 [facility] Work Phone: Neutrophils/100 WBC (Bld) 68.5 % 47-70 [facility] Work Phone: WBC (Bld) [#/Vol] 8.3 10*3/uL 4.4-11.0 [facility] Work Phone: Blood erythrocytes count (nu mber/volume)on 11-04-2021 RBC (Bld) [#/Vol] 4.30 10*6/uL 4.2-5.4 [facility] Work Phone: Blood hemoglobin measurement (mass/volume)on 11-04-2021 Hemoglobin (Bld) [Mass/Vol] 13.0 g/dL 12.0-15.0 [facility] Work Phone: Blood lymphocytes/100 leukoc yteson 11-04-2021 Lymphocytes/100 WBC (Bld) 21.2 % 19-41 [facility] Work Phone: Blood monocytes/100 leukocyt eson 11-04-2021 Monocytes/100 WBC (Bld) 5.2 % 0-10 [facility] Work Phone: Blood platelet mean volumeon 11-04-2021 Platelet mean volume (Bld) [Entitic vol] 9.8 fL 6.2-12.0 [facility] Work Phone: Determination of erythrocyte mean corpuscular volume (MCV)on 11-04-2021 MCV (RBC) [Entitic vol] 91.6 fL 81-99 [facility] Work Phone: HBV surface Ag IA Qlon 11-04 External Hepatitis B Surface Ag Negative Negative, None Detected [facility] HCV Ab IA Qlon 11-04-2021 [facility] HEPATITIS C ANTIBODY, EXTERNAL RESULT Negative [facility] HIV 1 and HIV-2 antibody ass ay with HIV-1 p24 antigen detectionon 11-04-2021 HIV 1+2 Ab+HIV1 p24 Ag IA Ql Non-Reactive Nonreactive [facility] Work Phone: HIV 1+2 Ab and HIV1 p24 Ag I A.rapid Nom (S/P/Bld)on 11-04-2021 HIV-1/HIV-2 Ab Negative [facility] Hematocrit Auto (Bld) [Volum e fraction]on 11-04-2021 Hematocrit (Bld) [Volume fraction] 39.4 % 37-47 [facility] Work Phone: Laboratory - Hematology and Cell countson 11-04-2021 Erythrocyte distribution width (RBC) [Entitic vol] 40.3 fL 35.1-43.9 [facility] Work Phone: Erythrocyte distribution width (RBC) [Ratio] 12.1 % 11.6-14.6 [facility] Work Phone: Immature granulocytes/100 WBC (Bld) 0.400 % 0.0-0.9 [facility] Work Phone: Comment on above: IG% - Immature Granu locytes (promyelocytes, myelocytes and metamyelocytes) > 1% indicates that a LEFT SHIFT is Present. MCH (RBC) [Entitic mass] 30.2 pg 27.0-32.0 [facility] Work Phone: Nucleated RBC/100 WBC (Bld) [Ratio] 0 % 0-5 [facility] Work Phone: MCHC Auto (RBC) [Mass/Vol]on 11-04-2021 MCHC (RBC) [Mass/Vol] 33.0 g/dL 32-36 [facility] Work Phone: No Panel InformationOrdered By: Sabino Shetty on 11-04-2021 External Rh Factor Positive [facility] Dr. Huston from [facility] OB called in to verify labs with Ayo RN at 1750 in 04/12/22 [facility] No Panel Informationon 11-04 External Rubella IGG Quantitation Positive [facility] Hepatitis B Surface Antigen Non-Reactive Nonreactive [facility] Work Phone: Hepatitis C Antibody Non-Reactive Nonreactive [facility] Work Phone: Comment on above: Non Reactive: < 0.8 Equivocal: >/= 0.8 to < 1.0 Reactive: >/= 1.0The CDC recommends that a reactive/equivocal HCV antibody result be followed up by the HCV Nucleic Acid Amplificationtest (932292) Rubella IgG Antibody Reactive Nonreactive [facility] Work Phone: Comment on above: Antibody Results Int erpretation of Immune Status Non Reactive Presumed Non-Immune Equivocal Equivocal Reactive Presumed Immune Platelets bldon 11-04-2021 Platelets (Bld) [#/Vol] 301 10*3/uL 150-450 [facility] Work Phone: Reagin Ab RPR Ql (S)on 11-04 External RPR Non-Reactive Borderline, Nonreactive, Weakly Reactive, Equivocal [facility] Serum Treponema species anti body detectionon 11-04-2021 Treponema sp Ab Ql (S) Non-Reactive [facility] Work Phone: Serum Varicella zoster virus IgG antibody assay by immunoassay (units/volume)on 11-04-2021 VZV IgG IA Qn (S) 314 index Immune >165 [facility] Work Phone: Comment on above: Negative <135 Equivo zak 135 - 165 Positive >165A positive result generally indicates exposure to thepathogen or administration of specific immunoglobulins,but it is not indication of active infection or stageof disease.Performed at: [facility] [place] [id number] Director: Wei Smith PhD, Phone: [phone] Cervical or vagninal specime n microscopic examination by cytology stain (reported ason 10-21-2021 Cytology report Cyto stain Doc (Cvx/Vag) Comment . [facility] Work Phone: Comment on above: The Pap smear is a s creening test designed to aid in thedetection of premalignant and malignant conditions of theuterine cervix. It is not a diagnostic procedure andshould not be used as the sole means of detecting cervicalcancer. Both false-positive and false-negative reports dooccur. Chlamydia trachomatis rRNA d etection by probe and target amplification methodon 10-21-2021 C. trachomatis rRNA ÁNGEL+probe Ql (Unsp spec) Positive Negative [facility] Work Phone: Laboratory - Cytologyon 09-25 Real Estate Agent Cyto stain Nom (Cvx/Vag) [ID] Comment . [facility] Work Phone: Comment on above: uZleyma Westfall, Cyto technologist (ASCP) Laboratory - Microbiology an d Antimicrobial susceptibilityon 10-21-2021 N. gonorrhoeae DNA ÁNGEL+probe Ql (Unsp spec) Negative Negative [facility] Work Phone: Comment on above: Performed at: [facility] [address] [id number] Director: Emilia Barraza MD, Phone: [phone] Laboratory - Miscellaneous t estson 10-21-2021 Service comment (Unsp spec) [Interp] Comment . [facility] Work Phone: Comment on above: This liquid based Th inPrep(R) pap test was screened withthe use of an image guided system. Service comment (Unsp spec) [Interp] . . [facility] Work Phone: No Panel Informationon 10-21 Human Papillomavirus Screen Comment . [facility] Work Phone: Comment on above: The HPV DNA reflex c marcos were not met with this specimenresult therefore, no HPV testing was performed.Performed at: [address] [id number] Director: Emilia Barraza MD, Phone: [phone] Pathology report final diagnosis Narrative Comment . [facility] Work Phone: Comment on above: NEGATIVE FOR INTRAEP ITHELIAL LESION OR MALIGNANCY. Serum or plasma choriogonado tropin detectionon 10-21-2021 HCG ( test) Ql 1755 mIU/mL <4 [facility] Work Phone: Comment on above: hCG levels with Gest ational AgeGestational Age hCG mIU/mL (IU/L)0.2 - 1 week 5 - 501-2 weeks 50 - 5002-3 weeks 100 - 21191-4 weeks 500 - 871039-5 weeks 1000 - 800628-4 weeks 32823 - 100,0006-8 weeks 93484 - 200,0002-3 months 76800 - 100,000 Absolute lymphocyte counton 10-19-2021 Lymphocytes Auto (Unsp spec) [#/Vol] 3.17 10*3/uL 0.83-4.51 [facility] Work Phone: Basophil percentageon 2021 Basophils/100 WBC (Bld) 0.6 % 0-1 [facility] Work Phone: Chloride [Moles/Vol] 107 mmol/L 98-107 [facility] Work Phone: Eosinophils/100 WBC (Bld) 3.7 % 0-5 [facility] Work Phone: Glucose [Mass/Vol] 98 mg/dL 74-106 [place] [facility] Work Phone: Neutrophils (Bld) [#/Vol] 6.6 10*3/uL 2.0-7.7 [facility] Work Phone: Neutrophils/100 WBC (Bld) 60.6 % 47-70 [facility] Work Phone: Potassium [Moles/Vol] 3.6 mmol/L 3.5-5.1 [facility] Work Phone: Sodium [Moles/Vol] 137 mmol/L 136-145 [facility] Work Phone: WBC (Bld) [#/Vol] 10.9 10*3/uL 4.4-11.0 [facility] Work Phone: Basophil percentage 0-5 SEEN /hpf 0-5 Wo [facility] Work Phone: Bilirubin Test strip Ql (U)o n 10-19-2021 Bilirubin Ql (U) Negative Negative [facility] Work Phone: Blood erythrocytes count (nu mber/volume)on 10-19-2021 RBC (Bld) [#/Vol] 4.05 10*6/uL 4.2-5.4 [facility] Work Phone: Blood hemoglobin measurement (mass/volume)on 10-19-2021 Hemoglobin (Bld) [Mass/Vol] 12.7 g/dL 12.0-15.0 [facility] Work Phone: Blood lymphocytes/100 leukoc yteson 10-19-2021 Lymphocytes/100 WBC (Bld) 29.1 % 19-41 [facility] Work Phone: [phone] Blood monocytes/100 leukocyt eson 10-19-2021 Monocytes/100 WBC (Bld) 5.0 % 0-10 [facility] Work Phone: Blood platelet mean volumeon 10-19-2021 Platelet mean volume (Bld) [Entitic vol] 9.9 fL 6.2-12.0 [facility] Work Phone: Determination of erythrocyte mean corpuscular volume (MCV)on 10-19-2021 MCV (RBC) [Entitic vol] 91.1 fL 81-99 [facility] Work Phone: Hematocrit Auto (Bld) [Volum e fraction]on 10-19-2021 Hematocrit (Bld) [Volume fraction] 36.9 % 37-47 [facility] Work Phone: Ketones Test strip Ql (U)on 10-19-2021 Ketones Ql (U) Negative Negative [facility] Work Phone: Laboratory - Chemistry and C hemistry - challengeon 10-19-2021 CO2 [Moles/Vol] 26.0 mmol/L 21.0-32.0 [facility] Work Phone: Urea nitrogen/Creatinine [Mass ratio] 19.5 mg/mg 10-20 [facility] Work Phone: Laboratory - Hematology and Cell countson 10-19-2021 Erythrocyte distribution width (RBC) [Entitic vol] 40.5 fL 35.1-43.9 [facility] Work Phone: [phone] Erythrocyte distribution width (RBC) [Ratio] 12.0 % 11.6-14.6 [facility] Work Phone: Immature granulocytes/100 WBC (Bld) 1.000 % 0.0-0.9 [facility] Work Phone: Comment on above: IG% - Immature Granu locytes (promyelocytes, myelocytes and metamyelocytes) > 1% indicates that a LEFT SHIFT is Present. MCH (RBC) [Entitic mass] 31.4 pg 27.0-32.0 [facility] Work Phone: Nucleated RBC/100 WBC (Bld) [Ratio] 0 % 0-5 [facility] Work Phone: MCHC Auto (RBC) [Mass/Vol]on 10-19-2021 MCHC (RBC) [Mass/Vol] 34.4 g/dL 32-36 [facility] Work Phone: Mucus LM Ql (Urine sed)on Mucus Ql (Urine sed) 0 SEEN /hpf [facility] Work Phone: Nitrite Test strip Ql (U)on 10-19-2021 Nitrite Ql (U) Negative Negative [facility] Work Phone: No Panel Informationon 10-19 Estimated Creatinine Clearance Calc 80.02 ml/min [facility] Work Phone: Estimated GFR (MDRD) Amer 98 mL/min >60 [facility] Work Phone: Comment on above: GFR Calc Estimated GFR (MDRD) Non-Af Amer 81 mL/min >60 [facility] Work Phone: Comment on above: Non- GFR Calc Platelets bldon 10-19-2021 Platelets (Bld) [#/Vol] 292 10*3/uL 150-450 [facility] Work Phone: Protein Test strip Ql (U)on 10-19-2021 Protein Ql (U) Negative Negative [facility] Work Phone: Serum or plasma calcium kemi urement (mass/volume)on 10-19-2021 Calcium [Mass/Vol] 9.1 mg/dL 8.5-10.1 [facility] Work Phone: Serum or plasma choriogonado tropin detectionon 10-19-2021 HCG ( test) Ql 961 mIU/mL <4 [facility] Work Phone: Comment on above: hCG levels with Gest ational AgeGestational Age hCG mIU/mL (IU/L)0.2 - 1 week 5 - 501-2 weeks 50 - 5002-3 weeks 100 - 12831-0 weeks 500 - 360032-9 weeks 1000 - 424569-7 weeks 72733 - 100,0006-8 weeks 83837 - 200,0002-3 months 50235 - 100,000 Serum or plasma creatinine m easurement (mass/volume)on 10-19-2021 Creatinine [Mass/Vol] 0.92 mg/dL 0.55-1.02 [facility] Work Phone: Comment on above: The validity of the calculated GFR & GFRAA in patients over 70 years has not been determined. Clinical correlation is essential. Serum or plasma urea nitroge n measurement (mass/volume)on 10-19-2021 Urea nitrogen [Mass/Vol] 18 mg/dL 7-18 [facility] Work Phone: Squamous epithelial cells de tection in urine sediment by light microscopyon 10-19-2021 Epithelial cells.squamous LM Ql (Urine sed) 0-5 SEEN /hpf 5-10 [facility] Work Phone: Thin prep Papanicolaou smear with manual screeningon 10-19-2021 Thin prep Papanicolaou smear with manual screening 4 5-15 [facility] Work Phone: Urine blood detectionon 09-25 RBC Ql (U) 250 /ul Negative [facility] Work Phone: RBC Ql (U) 0-5 SEEN /hpf 0-5 [facility] Work Phone: Urine clarityon 10-19-2021 Clarity (U) Clear Clear [facility] Work Phone: Urine color determinationon 10-19-2021 Color (U) Straw Yellow [facility] Work Phone: Urine glucose detectionon Glucose Ql (U) Normal mg/dl Normal [facility] Work Phone: Urine leukocyte esterase det ection by dipstickon 10-19-2021 Leukocyte esterase Test strip Ql (U) 25 /ul Negative [facility] Work Phone: Urine pHon 10-19-2021 pH (U) 6.0 [pH] 5.0 - 8.0 [facility] Work Phone: Urine sediment bacteria coun t by microscopy (number/high power field)on 10-19-2021 Bacteria LM.HPF (Urine sed) [#/Area] 1 /[HPF] None Seen [facility] Work Phone: Urine specific gravity measu rementon 07-26-2022 Specific gravity (U) [Rel density] 1.015 1.002-1.030 [facility] Work Phone: Urobilinogen Auto test strip Ql (U)on 10-19-2021 Urobilinogen Ql (U) Normal mg/dl Normal [facility] Work Phone: ZINCon 06-23-2021 ZINC 92 ug/dL Normal 44-115 [facility] Comment on above: Result Comment: Dete ction Limit = 5 Test(s) 466889-[id number], Plasma or Serum was developed and its performance characteristics determined by [employer]. It has not been cleared or approved by the Food and Drug Administration. Performed By: #### T YURIDIAS #### [address] [address] VITAMIN D 1,25-DIHYDROXYon 0 06-20-2021 VITAMIN D 1,25-DIHYDROXY 41.4 pg/mL Normal 19.9-79.3 [facility] Comment on above: Result Comment: INTE RPRETIVE INFORMATION: Vitamin D, 1,25-Dihydroxy This test is primarily indicated during patient evaluation for hypercalcemia and renal failure. A normal result does not rule out Vitamin D deficiency. The recommended test for diagnosing Vitamin D deficiency is Vitamin D 25-hydroxy. Performed By: [facility] [address] [place] [address] Plant Wrapper: Irina Styles MD Performed By: #### V TDDI #### [facility] [address] [place] [address] ANTITHYROID PEROX. ABon - ANTITHYROID PEROX. AB <28 Normal [facility] Comment on above: Result Comment: Nega tive: <=60 U/mL Positive: >60 U/mL Performed By: #### T POA2 #### [facility] [address] [place] [address] TRIIODOTHYRONINEon TRIIODOTHYRONINE 120 ng/dL Normal 80 - 210 [facility] Comment on above: Performed By: #### T HYDS #### [address] [address] CBC AND DIFFERENTIALon 06-17 Basophils (Bld) [#/Vol] 0.10 10*3/uL Normal 0.00 - 0.1 0 [facility] Comment on above: Performed By: #### T HYDS #### [address] [address] Basophils/100 WBC (Bld) 0.8 % Normal 0.0 - 2.0 [facility] Comment on above: Performed By: #### T HYDS #### [address] [address] Eosinophils (Bld) [#/Vol] 0.80 10*3/uL High 0.00 - 0.70 [facility] Comment on above: Performed By: #### T HYDS #### [address] [address] Eosinophils/100 WBC (Bld) 7.5 % Normal 0.0 - 6.0 [facility] Comment on above: Performed By: #### T HYDS #### [address] [address] Erythrocyte distribution width (RBC) [Ratio] 13.7 % Normal 11.5 - 14.5 [facility] Comment on above: Performed By: #### T HYDS #### [address] [address] Hematocrit (Bld) [Volume fraction] 44.7 % Normal 36.0 - 46.0 [facility] Comment on above: Performed By: #### T HYDS #### [address] [address] Hemoglobin (Bld) [Mass/Vol] 15.1 g/dL Normal 12.0 - 16.0 [facility] Comment on above: Performed By: #### T HYDS #### [address] [address] Lymphocytes (Bld) [#/Vol] 2.80 10*3/uL Normal 1.20 - 4.80 [facility] Comment on above: Performed By: #### T HYDS #### [address] [address] Lymphocytes/100 WBC (Bld) 26.2 % Normal 13.0 - 44.0 [facility] Comment on above: Performed By: #### T HYDS #### [address] [address] MCHC (RBC) [Mass/Vol] 33.7 g/dL Normal 32.0 - 36.0 [facility] Comment on above: Performed By: #### T HYDS #### [address] [address] MCV (RBC) [Entitic vol] 91 fL Normal 80 - 100 [facility] Comment on above: Performed By: #### T HYDS #### [address] [address] Monocytes (Bld) [#/Vol] 0.40 10*3/uL Normal 0.10 - 1.0 0 [facility] Comment on above: Performed By: #### T HYDS #### [address] [address] Monocytes/100 WBC (Bld) 4.1 % Normal 2.0 - 10.0 [facility] Comment on above: Performed By: #### T HYDS #### [address] [address] Neutrophils (Bld) [#/Vol] 6.60 10*3/uL Normal 1.20 - 7.70 [facility] Comment on above: Result Comment: Perc ent differential counts (%) should be interpreted in the context of the absolute cell counts (cells/L). Performed By: #### T HYDS #### [address] [address] Neutrophils/100 WBC (Bld) 61.4 % Normal 40.0 - 80.0 [facility] Comment on above: Performed By: #### T HYDS #### [address] [address] NUCLEATED RBC 0.7 /100 WBC Normal [facility] Comment on above: Performed By: #### T HYDS #### [address] [address] Platelets (Bld) [#/Vol] 305 10*3/uL Normal 150 - 450 [facility] Comment on above: Performed By: #### T HYDS #### [address] [address] RBC 4.89 x10E12/L Normal 4.00 - 5.20 [facility] Comment on above: Performed By: #### T HYDS #### [address] [address] WBC (Bld) [#/Vol] 10.7 10*3/uL Normal 4.4 - 11.3 [facility] Comment on above: Performed By: #### T HYDS #### [address] [address] COMPREHENSIVE PANELon 06-17- 2021 Albumin [Mass/Vol] 4.8 g/dL Normal 3.4 - 5.0 [facility] Comment on above: Performed By: #### C MP #### [address] [address] ALP [Catalytic activity/Vol] 52 U/L Normal 33 - 110 [facility] Comment on above: Performed By: #### C MP #### [address] [address] ALT [Catalytic activity/Vol] 15 U/L Normal 7 - 45 [facility] Comment on above: Result Comment: Dulce ents treated with Sulfasalazine may generate falsely decreased results for ALT. Performed By: #### C MP #### [address] [address] Anion gap [Moles/Vol] 13 mmol/L Normal 10 - 20 [facility] Comment on above: Performed By: #### C MP #### [address] [address] AST [Catalytic activity/Vol] 22 U/L Normal 9 - 39 [facility] Comment on above: Performed By: #### C MP #### [address] [address] Bilirubin [Mass/Vol] 0.5 mg/dL Normal 0.0 - 1.2 [facility] Comment on above: Performed By: #### C MP #### [address] [address] Calcium [Mass/Vol] 9.7 mg/dL Normal 8.6 - 10.3 [facility] Comment on above: Performed By: #### C MP #### [address] [address] Chloride [Moles/Vol] 107 mmol/L Normal 98 - 107 [facility] Comment on above: Performed By: #### C MP #### [address] [address] Creatinine [Mass/Vol] 0.74 mg/dL Normal 0.50 - 1.05 [facility] Comment on above: Performed By: #### C MP #### [address] [address] eGFR FEMALE >90 Normal >90 [facility] Comment on above: Result Comment: CALC ULATIONS OF ESTIMATED GFR ARE PERFORMED USING THE 2020 CKD-EPI STUDY REFIT EQUATION WITHOUT THE RACE VARIABLE FOR THE IDMS-TRACEABLE CREATININE METHODS. https://jasn.asnjournals.org/content//ASN.[email or web address] 435529 Performed By: #### C MP #### [address] [address] Glucose [Mass/Vol] 74 mg/dL Normal 74 - 99 [facility] Comment on above: Performed By: #### C MP #### [address] [address] HCO3 (Bld) [Moles/Vol] 24 mmol/L Normal 21 - 32 [facility] Comment on above: Performed By: #### C MP #### [address] [address] Potassium [Moles/Vol] 4.0 mmol/L Normal 3.5 - 5.3 [facility] Comment on above: Performed By: #### C MP #### [address] [address] Protein [Mass/Vol] 7.7 g/dL Normal 6.4 - 8.2 [facility] Comment on above: Performed By: #### C MP #### [address] [address] Sodium [Moles/Vol] 140 mmol/L Normal 136 - 145 [facility] Comment on above: Performed By: #### C MP #### [address] [address] Urea nitrogen [Mass/Vol] 12 mg/dL Normal 6 - 23 [facility] Comment on above: Performed By: #### C MP #### [address] [address] FERRITINon 06-17-2021 FERRITIN 53 ug/L Normal 8 - 150 [facility] Comment on above: Performed By: #### F ERRI #### [address] [address] FOLATE, SERUMon 06-17-2021 Folate [Mass/Vol] 22.5 ng/mL Normal >5.0 [facility] Comment on above: Result Comment: Low <3.4 Borderline 3.4-5.0 Normal >5.0 . Patients receiving more than 5 mg/day of biotin may have interference in test results. A sample should be taken no sooner than eight hours after previous dose. Contact the testing laboratory for additional information. Performed By: #### F OLA2 #### [address] [address] THYROXINE,FREEon 06-17-2021 THYROXINE,FREE 0.79 ng/dL Normal 0.61 - 1.12 [facility] Comment on above: Result Comment: Thyr oxine Free testing is performed using different testing methodology at [facility] than at other [facility]. Direct result comparisons should only be made within the same method. . Biotin can cause falsely elevated free T4 results. Patients taking a Biotin dose of up to 10 mg/day should refrain from taking Biotin for 24 hours before sample collection. Patient taking a Biotin dose of >10 mg/day should consult with their physician or the laboratory before the blood draw. Performed By: #### T 4FRE #### [address] [address] TSHon 06-17-2021 TSH Qn 2.01 m[IU]/L Normal 0.44 - 3.98 [facility] Comment on above: Result Comment: TSH testing is performed using different testing methodology at [facility] than at other [facility]. Direct result comparisons should only be made within the same method. Performed By: #### T HYDS #### [address] [address] VITAMIN B12on 06-17-2021 Cobalamin (Vitamin B12) [Mass/Vol] 457 pg/mL Normal 211 - 911 [facility] Comment on above: Performed By: #### T HYDS #### [address] [address] VITAMIN D, 25-HYDROXYon 05-26 VITAMIN D, 25-HYDROXY 44 ng/mL Normal [facility] Comment on above: Result Comment: . DEFICIENCY: < 20 NG/ML INSUFFICIENCY: 20-29 NG/ML SUFFICIENCY: 30-100 NG/ML THIS ASSAY ACCURATELY QUANTIFIES THE SUM OF VITAMIN D3, 25-HYDROXY AND VIT D2,25-HYDROXY. Performed By: #### T HYDS #### [address] [address] Office Visiton 05-27-2021 Follow-up visit Diagnoses/Problems Anxiety with depression (300.4) (F41.8) Orders Anxiety with depression Start: busPIRone HCl - 10 MG Oral Tablet; TAKE 1 TABLET TWICE DAILY Provider Impressions F/u in 1 month and prn. Chief Complaint 1 month f/u, medication is making her nauseous History of Present IllnessHere for f/u anxiety/depression. She does think that the drysol is helpful for her hands, unless she gets very nervous. She thinks the lexapro is somewhat helpful with her anxiety but she does get some nausea that she believes is related to the medication. She does still struggle with her anxiety as well - we discussed possibly changing her medication vs adding buspirone and she would like to add the buspirone so we will do that. Review of Systems Constitutional: Negative except as documented in history of present illness. Respiratory: Negative except as documented in history of present illness. Cardiovascular: Negative except as documented in history of present illness. 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) Surgical History History of Foot surgery Social History Caffeine use (V49.89) (Z78.9) Does not have living will Former smoker (V15.82) (Z87.891) No alcohol use No illicit drug use Allergies No Known Drug Allergies Recorded By: Fabi Valadez; 02/25/2021 8:53:00 AM Current Meds Medication NameInstruction Drysol 20 % External SolutionAPPLY SPARINGLY TO AFFECTED AREA(S) ONCE DAILY Escitalopram Oxalate 10 MG Oral TabletTake 1 tablet daily Vitals Vital Signs Recorded: 27May2021 09:00AM Heart Rate61 Iomitbho983 Gksxnpkmc77 Height5 ft 3 in Jnicyo787 lb BMI Krcptipwui69.55 kg/m2 BSA Calculated1.53 Tobacco Useb) No O2 Wgrqdaoedy26 Physical Exam General: Alert and oriented, No acute distress. Psychiatric: Cooperative, Appropriate mood AND affect. 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 We will try some drysol for her hands. F/u in 1 month, sooner if needed. Chief Complaint anxiety History of Present IllnessHere for f/u anxiety/depression. She states that she thinks she is feeling a little less tired, but otherwise things haven't changed. She continues to struggle with excessive sweating, it is most bothersome on her palms/ hands. She does have an appointment with dermatology, but it's not until the end of the month. Review of Systems Constitutional: Negative except as documented in history of present illness. Respiratory: Negative except as documented in history of present illness. Cardiovascular: Negative except as documented in history of present illness. Active Problems Anxiety with depression (300.4) (F41.8) Hair loss (704.00) (L65.9) Surgical History History of Foot surgery Social History Caffeine use (V49.89) (Z78.9) Does not have living will Former smoker (V15.82) (Z87.891) No alcohol use No illicit drug use Allergies No Known Drug Allergies Recorded By: Fabi Valadez; 02/25/2021 8:53:00 AM Current Meds Medication NameInstruction Escitalopram Oxalate 10 MG Oral TabletTake 1 tablet daily Vitals Vital Signs Recorded: 28Apr2021 08:04AM Nopxfuaraen37.8 F Ymbukbmz966 Fficbmofv45 Height5 ft 3 in Vgcsyp750 lb BMI Durqmpxmwi35.9 kg/m2 BSA Calculated1.55 Tobacco Useb) No Physical Exam General: Alert and oriented, No acute distress. Psychiatric: Cooperative, Appropriate mood AND affect. Signatures Electronically signed by : Yoli Moreland MD; Apr 29 2021 5:00PM EST (Author) Normal [facility] Tobacco Screening.on 022 Tobacco use status CPHS b) No [facility] [facility] Work Phone: Office Visiton 03-12-2021 Follow-up visit Diagnoses/Problems Anxiety disorder (300.00) (F41.9) Orders Anxiety disorder Renew: Escitalopram Oxalate 10 MG Oral Tablet; Take 1 tablet daily Provider Impressions F/u in 2-3 weeks, sooner if needed. Chief Complaint 2 week f/u History of Present IllnessHere for f/u anxiety/depression. She states that she does not feel any different. No side effects with the lexapro. We will increase to 10 mg daily and see if things improve. Review of Systems Constitutional: Negative except as documented in history of present illness. Respiratory: Negative except as documented in history of present illness. Cardiovascular: Negative except as documented in history of present illness. Active Problems Anxiety disorder (300.00) (F41.9) Hair loss (704.00) (L65.9) Surgical History History of Foot surgery Social History Caffeine use (V49.89) (Z78.9) Does not have living will Former smoker (V15.82) (Z87.891) No alcohol use No illicit drug use Allergies No Known Drug Allergies Recorded By: Fabi Valadez; 02/25/2021 8:53:00 AM Current Meds Medication NameInstruction Escitalopram Oxalate 5 MG Oral TabletTAKE 1 TABLET DAILY. Vitals Vital Signs Recorded: 14Eih5829 08:19AM Wlopvafjtlf73.7 F Heart Rate78 Zrcicnbz118 Mcojcrhuh58 Height5 ft 3 in Pxqsbq689 lb 4 oz BMI Nbflnjfwjw59.83 kg/m2 BSA Calculated1.57 Tobacco Useb) No O2 Lscrobgdrh11 Physical Exam General: Alert and oriented, No acute distress. Anxious/tearful Psychiatric: Cooperative, Appropriate mood AND affect. Results/Data Complete Blood Count + [id number] 09:31AMYoli Moreland [Mar 05, 2021 3:08PM Yoli Moreland] appt 03/11 Test NameResultFlagReference White Blood Cell Count5.5 x10E9/L4.4 - 11.3 Red Blood Cell Count4.80 x10E12/LSee Below Reference Range: 4.00 - 5.20 Nucleated Erythrocyte Count0.1 /100 WBC Ayenjpezuo47.5 g/dLSee Below Reference Range: 12.0 - 16.0 HCT44.4 %See Below Reference Range: 36.0 - 46.0 MCV93 fL80 - 100 MCHC32.6 g/dLSee Below Reference Range: 32.0 - 36.0 Platelet Ihwgc988 x10E9/L150 - 450 RDW-CV12.9 %See Below Reference Range: 11.5 - 14.5 Neutrophil %55.9 %See Below Reference Range: 40.0 - 80.0 Lymphocyte %32.4 %See Below Reference Range: 13.0 - 44.0 Monocyte %5.7 %2.0 - 10.0 Eosinophil %5.1 %0.0 - 6.0 Basophil %0.9 %0.0 - 2.0 Neutrophil Count3.10 x10E9/LSee Below Reference Range: 1.20 - 7.70 Percent differential counts (%) should be interpreted in the context of the absolute cell counts (cells/L). Lymphocyte Count1.80 x10E9/LSee Below Reference Range: 1.20 - 4.80 Monocyte Count0.30 x10E9/LSee Below Reference Range: 0.10 - 1.00 Eosinophil Count0.30 x10E9/LSee Below Reference Range: 0.00 - 0.70 Basophil Count0.00 x10E9/LSee Below Reference Range: 0.00 - 0.10 Comprehensive Metabolic [id number] 09:Yoli Moreland [Mar 05, 2021 3:08PM Yoli Moreland] appt 03/11 Test NameResultFlagReference Glucose, Serum82 mg/dL74 - 99 Sodium, Tkntj535 mmol/L136 - 145 POTASSIUM3.7 mmol/L3.5 - 5.3 Chloride, Fsvkg443 mmol/L98 - 107 Bicarbonate, Serum26 mmol/L21 - 32 Anion Gap, Serum13 mmol/L10 - 20 Blood Urea Nitrogen, Serum16 mg/dL6 - 23 CREATININE0.82 mg/dLSee Below Reference Range: 0.50 - 1.05 Calcium, Serum10.0 mg/dL8.6 - 10.3 Albumin, Serum4.9 g/dL3.4 - 5.0 ALKALINE HKZOYUKGXYP43 U/L33 - 110 Protein, Total Serum7.4 g/dL6.4 - 8.2 Bilirubin, Serum Total0.9 mg/dL0.0 - 1.2 ALT (SGPT), Serum12 U/L7 - 45 Patients treated with Sulfasalazine may generate falsely decreased results for ALT. GFR Non >60 mL/min/1.73m2>60 GFR >60 mL/min/1.73m2>60 CALCULATIONS OF ESTIMATED GFR ARE PERFORMED USING THE MDRD STUDY EQUATION FOR THE IDMS-TRACEABLE CREATININE METHODS. CLIN CHEM 2007;53:766-72 AST18 U/L9 - 39 TSH WITH REFLEX TO FREE T4 IF [id number] 09:Yoli Moreland [Mar 05, 2021 3:08PM Yoli Moreland] appt 03/11 Test NameResultFlagReference Thyroid Stimulating Hormone, Serum1.28 mIU/LSee Below Reference Range: 0.44 - 3.98 TSH testing is performed using different testing methodology at [facility] than at other [facility]. Direct result comparisons should only be made within the same method. Vitamin B12, [id number] 09:31AMLoYoli sánchez [Mar 05, 2021 3:08PM Yoli Moreland] appt 03/11 Test NameResultFlagReference Vitamin B12, Cwmqh835 pg/mL211 - 911 Magnesium, Uiyzl55Aah3628 09:31AMJocelyngonzalo Yoli [Mar 05, 2021 3:08PM Yoli Moreland] appt 03/11 Test NameResultFlagReference Magnesium, Serum2.13 mg/dLSee Below Reference Range: 1.60 - 2.40 Signatures Electronically signed by : Yoli Moreland MD; Mar 12 2021 8:49AM EST (Author) Normal [facility] Tobacco Screening.on 021 Tobacco use status CPHS b) No [facility] [facility] Work Phone: CBC AND DIFFERENTIALon 02-25 Basophils (Bld) [#/Vol] 0.00 10*3/uL Normal 0.00 - 0.1 0 [facility] Comment on above: Performed By: #### C BCDF #### [address] [address] Basophils/100 WBC (Bld) 0.9 % Normal 0.0 - 2.0 [facility] Comment on above: Performed By: #### C BCDF #### [address] [address] Eosinophils (Bld) [#/Vol] 0.30 10*3/uL Normal 0.00 - 0.70 [facility] Comment on above: Performed By: #### C BCDF #### [address] [address] Eosinophils/100 WBC (Bld) 5.1 % Normal 0.0 - 6.0 [facility] Comment on above: Performed By: #### C BCDF #### [address] [address] Erythrocyte distribution width (RBC) [Ratio] 12.9 % Normal 11.5 - 14.5 [facility] Comment on above: Performed By: #### C BCDF #### [address] [address] Hematocrit (Bld) [Volume fraction] 44.4 % Normal 36.0 - 46.0 [facility] Comment on above: Performed By: #### C BCDF #### [address] [address] Hemoglobin (Bld) [Mass/Vol] 14.5 g/dL Normal 12.0 - 16.0 [facility] Comment on above: Performed By: #### C BCDF #### [address] [address] Lymphocytes (Bld) [#/Vol] 1.80 10*3/uL Normal 1.20 - 4.80 [facility] Comment on above: Performed By: #### C BCDF #### [address] [address] Lymphocytes/100 WBC (Bld) 32.4 % Normal 13.0 - 44.0 [facility] Comment on above: Performed By: #### C BCDF #### [address] [address] MCHC (RBC) [Mass/Vol] 32.6 g/dL Normal 32.0 - 36.0 [facility] Comment on above: Performed By: #### C BCDF #### [address] [address] MCV (RBC) [Entitic vol] 93 fL Normal 80 - 100 [facility] Comment on above: Performed By: #### C BCDF #### [address] [address] Monocytes (Bld) [#/Vol] 0.30 10*3/uL Normal 0.10 - 1.0 0 [facility] Comment on above: Performed By: #### C BCDF #### [address] [address] Monocytes/100 WBC (Bld) 5.7 % Normal 2.0 - 10.0 [facility] Comment on above: Performed By: #### C BCDF #### [address] [address] Neutrophils (Bld) [#/Vol] 3.10 10*3/uL Normal 1.20 - 7.70 [facility] Comment on above: Result Comment: Perc ent differential counts (%) should be interpreted in the context of the absolute cell counts (cells/L). Performed By: #### C BCDF #### [address] [address] Neutrophils/100 WBC (Bld) 55.9 % Normal 40.0 - 80.0 [facility] Comment on above: Performed By: #### C BCDF #### [address] [address] NUCLEATED RBC 0.1 /100 WBC Normal [facility] Comment on above: Performed By: #### C BCDF #### [address] [address] Platelets (Bld) [#/Vol] 275 10*3/uL Normal 150 - 450 [facility] Comment on above: Performed By: #### C BCDF #### [address] [address] RBC 4.80 x10E12/L Normal 4.00 - 5.20 [facility] Comment on above: Performed By: #### C BCDF #### [address] [address] WBC (Bld) [#/Vol] 5.5 10*3/uL Normal 4.4 - 11.3 [facility] Comment on above: Performed By: #### C BCDF #### [address] [address] COMPREHENSIVE PANELon 2020 Albumin [Mass/Vol] 4.9 g/dL Normal 3.4 - 5.0 [facility] Comment on above: Performed By: #### C MP #### [address] [address] ALP [Catalytic activity/Vol] 46 U/L Normal 33 - 110 [facility] Comment on above: Performed By: #### C MP #### [address] [address] ALT [Catalytic activity/Vol] 12 U/L Normal 7 - 45 [facility] Comment on above: Result Comment: Dulce ents treated with Sulfasalazine may generate falsely decreased results for ALT. Performed By: #### C MP #### [address] [address] Anion gap [Moles/Vol] 13 mmol/L Normal 10 - 20 [facility] Comment on above: Performed By: #### C MP #### [address] [address] AST [Catalytic activity/Vol] 18 U/L Normal 9 - 39 [facility] Comment on above: Performed By: #### C MP #### [address] [address] Bilirubin [Mass/Vol] 0.9 mg/dL Normal 0.0 - 1.2 [facility] Comment on above: Performed By: #### C MP #### [address] [address] Calcium [Mass/Vol] 10.0 mg/dL Normal 8.6 - 10.3 [facility] Comment on above: Performed By: #### C MP #### [address] [address] Chloride [Moles/Vol] 103 mmol/L Normal 98 - 107 [facility] Comment on above: Performed By: #### C MP #### [address] [address] Creatinine [Mass/Vol] 0.82 mg/dL Normal 0.50 - 1.05 [facility] Comment on above: Performed By: #### C MP #### [address] [address] GFR- AM. >60 Normal >60 [facility] Comment on above: Result Comment: CALC ULATIONS OF ESTIMATED GFR ARE PERFORMED USING THE MDRD STUDY EQUATION FOR THE IDMS-TRACEABLE CREATININE METHODS. CLIN CHEM 2007;53:766-72 Performed By: #### C MP #### [address] [address] GFR-NON AM. >60 Normal >60 [facility] Comment on above: Performed By: #### C MP #### [address] [address] Glucose [Mass/Vol] 82 mg/dL Normal 74 - 99 [facility] Comment on above: Performed By: #### C MP #### [address] [address] HCO3 (Bld) [Moles/Vol] 26 mmol/L Normal 21 - 32 [facility] Comment on above: Performed By: #### C MP #### [address] [address] Potassium [Moles/Vol] 3.7 mmol/L Normal 3.5 - 5.3 [facility] Comment on above: Performed By: #### C MP #### [address] [address] Protein [Mass/Vol] 7.4 g/dL Normal 6.4 - 8.2 [facility] Comment on above: Performed By: #### C MP #### [address] [address] Sodium [Moles/Vol] 138 mmol/L Normal 136 - 145 [facility] Comment on above: Performed By: #### C MP #### [address] [address] Urea nitrogen [Mass/Vol] 16 mg/dL Normal 6 - 23 [facility] Comment on above: Performed By: #### C MP #### [address] [address] Complete Blood Count + Sherice kinsey 02-25-2021 Basophils/100 WBC (Bld) 0.9 % 0.0 - 2.0 [facility] DO Work Phone: Erythrocyte distribution width (RBC) [Ratio] 12.9 % See Below [facility] DO Work Phone: Comment on above: Reference Range: 11. 5 - 14.5 Hematocrit (Bld) [Volume fraction] 44.4 % See [facility] 205 DO Work Phone: Comment on above: Reference Range: 36. 0 - 46.0 Hemoglobin (Bld) [Mass/Vol] 14.5 g/dL See Below [facility] 205 DO Work Phone: Comment on above: Reference Range: 12. 0 - 16.0 Lymphocytes/100 WBC (Bld) 32.4 % See Below [facility] 205 DO Work Phone: Comment on above: Reference Range: 13. 0 - 44.0 MCHC (RBC) [Mass/Vol] 32.6 g/dL See Below [facility] 205 DO Work Phone: Comment on above: Reference Range: 32. 0 - 36.0 MCV (RBC) [Entitic vol] 93 fL 80 - 100 [facility] 205 DO Work Phone: Monocytes/100 WBC (Bld) 5.7 % 2.0 - 10.0 M [facility] 205 DO Work Phone: Neutrophils/100 WBC (Bld) 55.9 % See Below [facility] 205 DO Work Phone: Comment on above: Reference Range: 40. 0 - 80.0 Platelets (Bld) [#/Vol] 275 10*3/uL 150 - 450 [facility] 205 DO Work Phone: RBC (Bld) [#/Vol] 4.80 {x10E12/L} See Below [facility] 205 DO Work Phone: Comment on above: Reference Range: 4.0 0 - 5.20 WBC (Bld) [#/Vol] 5.5 10*3/uL 4.4 - 11.3 [facility] DO Work Phone: Complete Blood Count + Differential 0.00 {x10E9/L} See Below [facility] DO Work Phone: Comment on above: Reference Range: 0.0 0 - 0.10 Complete Blood Count + Differential 0.30 {x10E9/L} See Below [facility] DO Work Phone: Comment on above: Reference Range: 0.0 0 - 0.70 Reference Range: 0.1 0 - 1.00 Complete Blood Count + Differential 1.80 {x10E9/L} See Below [facility] DO Work Phone: Comment on above: Reference Range: 1.2 0 - 4.80 Complete Blood Count + Differential 3.10 {x10E9/L} See Below [facility] DO Work Phone: Comment on above: Reference Range: 1.2 0 - 7.70 Percent differential counts (%) should be interpreted in the context of the absolute cell counts (cells/L). Complete Blood Count + Differential 5.1 % 0.0 - 6.0 [facility] DO Work Phone: Complete Blood Count + Differential 0.1 {/100_WBC} [facility]ENTERWeston [place] [address] DO Work Phone: Laboratory - Chemistry and C hemistry - challengeon 02-25-2021 Albumin BCP dye [Mass/Vol] 4.9 g/dL 3.4 - 5.0 [facility] DO Work Phone: ALP [Catalytic activity/Vol] 46 U/L 33 - 110 [facility] 205 DO Work Phone: ALT With P-5'-P [Catalytic activity/Vol] 12 U/L 7 - 45 [facility] 205 DO Work Phone: Comment on above: Patients treated wit h Sulfasalazine may generate falsely decreased results for ALT. Anion gap [Moles/Vol] 13 mmol/L 10 - 20 [facility] 205 DO Work Phone: AST With P-5'-P [Catalytic activity/Vol] 18 U/L 9 - 39 -Cl[facility] t [facility] 205 DO Work Phone: Bilirubin [Mass/Vol] 0.9 mg/dL 0.0 - 1.2 MP[facility] 205 DO Work Phone: Calcium [Mass/Vol] 10.0 mg/dL 8.6 - 10.3 -Cla belgica t Medical [facility] 205 DO Work Phone: Chloride [Moles/Vol] 103 mmol/L 98 - 107 -C laremon t Medical [facility] 205 DO Work Phone: CO2 [Moles/Vol] 26 mmol/L 21 - 32 [facility] 205 DO Work Phone: Creatinine [Mass/Vol] 0.82 mg/dL See Below - [facility] 205 DO Work Phone: Comment on above: Reference Range: 0.5 0 - 1.05 Glucose [Mass/Vol] 82 mg/dL 74 - 99 MP[facility] 205 DO Work Phone: Potassium [Moles/Vol] 3.7 mmol/L 3.5 - 5.3 MP- [facility] DO Work Phone: Protein [Mass/Vol] 7.4 g/dL 6.4 - 8.2 Crys davidson [facility] DO Work Phone: Sodium [Moles/Vol] 138 mmol/L 136 - 145 [facility] DO Work Phone: TSH Qn 1.28 m[IU]/L See Below Marely davidson [facility] DO Work Phone: Comment on above: Reference Range: 0.4 4 - 3.98 TSH testing is performed using different testing methodology at [facility] than at other [facility]. Direct result comparisons should only be made within the same method. Urea nitrogen [Mass/Vol] 16 mg/dL 6 - 23 -Weston davidson [facility] DO Work Phone: MAGNESIUMon 02-25-2021 Magnesium [Mass/Vol] 2.13 mg/dL Normal 1.60 - 2.40 [facility] Comment on above: Performed By: #### M G #### [facility] [address] [place] [address] Magnesium, Serumon Magnesium [Mass/Vol] 2.13 mg/dL See Below Bienvenido davidson [facility] DO Work Phone: Comment on above: Reference Range: 1.6 0 - 2.40 No Panel Informationon 02-25 >60 >60 [facility] [place] [address] DO Work Phone: Comment on above: CALCULATIONS OF KELLY MATED GFR ARE PERFORMED USING THE MDRD STUDY EQUATION FOR THE IDMS-TRACEABLE CREATININE METHODS. CLIN CHEM 2007;53:766-72 Office Visiton 02-25-2021 Follow-up visit Diagnoses/Problems Encounter for preventive health examination (V70.0) (Z00.00) Anxiety disorder (300.00) (F41.9) Hair loss (704.00) (L65.9) Orders Anxiety disorder Start: Escitalopram Oxalate 5 MG Oral Tablet (Lexapro); TAKE 1 TABLET DAILY Anxiety disorder, Health Maintenance, Hair loss Complete Blood Count + Differential; Status:In Progress - Specimen/Data Collected; Done: [id number] Comprehensive Metabolic Panel; Status:In Progress - Specimen/Data Collected; Done: 73Jpp2574 Magnesium, Serum; Status:In Progress - Specimen/Data Collected; Done: [id number] TSH WITH REFLEX TO FREE T4 IF ABNORMAL; Status:In Progress - Specimen/Data Collected; Done: 36Hpm4629 Vitamin B12, Serum; Status:In Progress - Specimen/Data Collected; Done: [id number] SocHx: Former smoker Tobacco Use Screening; Status:Complete; Done: 30Icg2291 Provider Impressions Will check some labs and start lexapro and f/u in 2 weeks, sooner if needed. Chief Complaint NPV, anxiety History of Present IllnessHere to get established. She has been having some issues with anxiety. States that she has had it her whole life. She has not been on medication or had counselling in the past. She states that she is always sweating - that has been an issue since she was little - especially her palms, having some hair loss, will feel like she can't breathe at times, cries easily, heart races. No dizziness/passing out. She has no known medical problems, takes no medications on a regular basis. Review of Systems Constitutional: Negative except as documented in history of present illness. Respiratory: Negative except as documented in history of present illness. Cardiovascular: Negative except as documented in history of present illness. Surgical History History of Foot surgery Social History Caffeine use (V49.89) (Z78.9) Does not have living will Former smoker (V15.82) (Z87.891) No alcohol use No illicit drug use Allergies No Known Drug Allergies Recorded By: Fabi Valadez; 02/25/2021 8:53:00 AM Vitals Vital Signs Recorded: 25Feb2021 08:51AM Bpevcvfbqch96.2 F Heart Nksg636 Tpmqeqcd344 Pkffxpyee31 Height5 ft 3 in Aedpnu307 lb 4 oz BMI Rbhyqyagpm24.83 kg/m2 BSA Calculated1.57 Tobacco Useb) No O2 Bfkflzrcae62 Physical Exam General: Alert and oriented, No acute distress. Anxious/tearful Respiratory: Lungs are clear to auscultation, Respirations are non-labored, Breath sounds are equal. Cardiovascular: Normal rate, Regular rhythm, No murmur. Integumentary: Warm, Dry. Neurologic: Alert, Oriented, No focal deficits. Psychiatric: Cooperative, Appropriate mood AND affect. Signatures Electronically signed by : Yoli Moreland MD; Feb 25 2021 9:43AM EST (Author) Normal Touchworks TSH WITH REFLEX TO FREE T4 I F ABNORMALon 02-25-2021 TSH Qn 1.28 m[IU]/L Normal 0.44 - 3.98 [facility] Comment on above: Result Comment: TSH testing is performed using different testing methodology at [facility] than at other [facility]. Direct result comparisons should only be made within the same method. Performed By: #### T HYDS #### [place] [address] Tobacco Screening.on 021 Tobacco use status CPHS b) No [facility] Work Phone: VITAMIN B12on 02-25-2021 Cobalamin (Vitamin B12) [Mass/Vol] 346 pg/mL Normal 211 - 911 [facility] Comment on above: Performed By: #### T HYDS #### [address] [address] Vitamin B12, Serumon 021 Cobalamin (Vitamin B12) [Mass/Vol] 346 pg/mL 211 - 911 [facility] DO Work Phone: CORONAVIRUS 2019 BY PCRon SARS-CoV-2 (COVID-19) RNA ÁNGEL+probe Ql (Unsp spec) Not detected Normal Not Detected [facility] Comment on above: Result Comment: . This test has received FDA Emergency Use Authorization (EUA) and has been verified by [facility]. This test is only authorized for the duration of time that circumstances exist to justify the authorization of the emergency use of in vitro diagnostic tests for the detection of SARS-CoV-2 virus and/or diagnosis of COVID-19 infection under section 564(b)(1) of the Act, 21 U.S.C. 360bbb-3(b)(1), unless the authorization is terminated or revoked sooner. [facility] is certified under CLIA-88 as qualified to perform high complexity testing. Testing is performed in the [facility] laboratory located at [address] [place] [address]. SARS-CoV-2/Flu/RSV Multiplex Test: Fact sheet for providers: https://www.fda.gov/media/459254/download Fact sheet for patients: https://www.fda.gov/media/542791/download Performed By: #### C OV19 #### [place] [address] Lab Specimen Source Nasal, Nasopharyngeal Normal [facility] Comment on above: Performed By: #### C OV19 #### [place] [address] Covid 19 Resultson 1 SARS-CoV-2 (COVID-19) RNA ÁNGEL+probe Ql (Unsp spec) NEGATIVE COVID-19 Test Coronaviruses are common world-wide and are the cause of many common colds. SARS-COV2 is a new coronavirus that began circulating worldwide in 2019 so we are calling it COVID-19. It has been estimated that four out of five patients with COVID-19 will recover at home without the need for medical attention. Symptoms of COVID-19 may include cough, fever, shortness of breath, loss of taste or smell and other flu-like symptoms including chills, sore muscles, sore throat, and headache. Severe illness is more common in older people and people with other health problems such as high blood pressure, obesity, and immune system problems. If the test is positive, you have COVID-19. You will be contacted by the ordering physicians office and instructed to remain on home isolation, in accordance with CDC guidelines. You may also be contacted by the [facility] to see if any of your close contacts may have been exposed to the virus and need to quarantine. If the test is negative, you likely do not have COVID-19 at this time, but you still may have a different illness that can spread to other people (like Influenza, or the Flu) and could still be at risk for getting COVID-19. We recommend that you stay away from other people to limit the spread of illness until your symptoms are improving and you are fever-free for 24 hours without the use of fever lowering medications such as acetaminophen or ibuprofen. No test is 100% accurate so if you are still concerned you may have COVID-19, talk to your doctor about the need to continue to stay away from others. Medicines Unless your provider told you not to use the following: Acetaminophen (Tylenol and others) is generally safe. Anti-inflammatory medications, such as Ibuprofen (Advil or Motrin) or Naproxen (Aleve) can also be used. Uecz-gkm-roaotdr cough and cold medicines can be used according to the instructions on the package. Some wqwr-nvg-xsmvtio medicines also contain acetaminophen. Make sure you are not taking more than your recommended dose. For those not hospitalized, there is no specific treatment available for this illness. Antibiotics do not treat Coronaviruses. Follow-Up Follow up with your doctor by scheduling a virtual visit or consider follow-up at one of our urgent care fever clinics. If you are having difficulty breathing, or are very weak and having difficulty standing, this is a medical emergency. Call 911 or have someone take you to the nearest emergency room immediately. If possible, wear a facemask. Additional guidance from the CDC for patients who tested POSITIVE for COVID-19 How to isolate: Isolate yourself in a specific room at home and limit your contact with others. Use a separate bathroom from other members of the household, when possible. Leave home only to get essential medical care. Do not go to work, school or public areas. Avoid using public transportation, ride-sharing, or taxis. Restrict contact with pets and other animals. If you must care for your pet or be around animals while you are sick, wash your hands before and after your interaction and wear a facemask. Make sure that shared spaces in the home have good airflow, such as by an air conditioner or an opened window, weather permitting. Personal Hygiene Procedures: Wear a face mask when in the same room as other people or pets. If a face mask interferes with your breathing, others should wear a mask when sharing space with you. Frequent hand-washing: wash your hands with soap and water for at least 20 seconds. If soap and water are not available, use alcohol-based hand set up technician. Avoid touching your eyes, nose, and mouth with unwashed hands. Household Hygiene Procedures: Avoid sharing personal household items such as dishes, glassware, cups, eating utensils, towels or bedding with other people or pets in your home. After use, these items should be washed with soap and hot water. Disinfect all high-touch surfaces every day with antibacterial cleaning solutions such as Lysol wipes, bleach, cleansers, etc. High-touch surfaces include tabletops, doorknobs, bathroom fixtures, toilets, phones, keyboards, tablets and bedside tables. Immediately clean any surfaces that may have blood, poop or body fluids on them, using antibacterial cleaning solutions such as Lysol wipes, bleach, cleansers, etc. If clothing or bedding come into contact with blood, poop or body fluids, they should be washed immediately. Follow the directions on the laundry detergent and clothing labels but hot water is recommended when possible. Stopping home isolation precautions: If possible, consult your doctor before stopping home isolation precautions. According to the CDC, you can discontinue home isolation precautions when you have met both of these criteria: Your fever and respiratory symptoms have been gone for 24 jeremy (more content not included)... Normal [facility] Provider Note - ED v2on 05-0 Provider Note - ED v2 Provider Note - ED v2: Chart Review: ED NOTES ED NOTES: 20-year-old female presents with foreign body in her throat. Patient gives me a history of having some dysphagia and achalasia type symptoms where she has difficulty swallowing and eventually is able to swallow the food bolus. Patient states she ate a piece of pork tonight now it stuck in her throat. Patient states when she drinks she regurgitates the fluids. Patient is in no acute distress when I examined her. I did explain to both the patient and the mother that she would require a procedure to remove the foreign body. They are acceptable to this. Spoke with who will come in and see the patient and do a bedside procedure. Patient was able to swallow the object while waiting for the procedure to occur. Patient will be discharged to follow-up in stable condition. HISTORY OF PRESENTING ILLNESS KIERA is a 20 year old Female and was seen by me at 24-Jul-2020 22:13 for a chief complaint of foreign body throat (Patient c/o a piece or pork stuck in her throat x 3 hours, states history of previous issues with food sticking in throat)(1). The historian is the patient. Triage Information: Most recent Vital Sign Value Date Temp (F): 97.5 07-24-2020 22:11 Temp (C): 36.4 07-24-2020 22:11 Heart Rate (beats/min): 114 07-24-2020 22:11 Respirations (breaths/min): 18 07-24-2020 22:11 SpO2 (%): 99 07-24-2020 22:11 BP Systolic (mm Hg): 133 07-24-2020 22:11 BP Diastolic (mm Hg): 89 07-24-2020 22:11 PAST MEDICAL HISTORY ATTESTATION: I have reviewed and confirmed nurse's/medic's notes for patient's medications, allergies, and medical, surgical, family and social history ALLERGIES/INTOLERANCES: No Known Allergies HEALTH HISTORY: No documented data. OUTPATIENT MEDICATIONS: Home Medications Review Status for Reconciliation: N/A Med Status: N/A No documented data. SIGNIFICANT EVENTS: No documented data. SIDE LASTER: Is : no(1) Is : no(1) REVIEW OF SYSTEMS ENMT Throat/Neck: (Foreign body in throat) POSITIVE for: dysphagia RESULTS/VITAL SIGNS VITAL SIGNS: T PRBP SpO2O2(LPM) %FiO2 Method 25-Jul-2020 01:00:00-8324594/67 98 room air, no respiratory support 25-Jul-2020 00:30:00-4539844/79 98 room air, no respiratory support 24-Jul-2020 23:30:00-7200563/74 100 room air, no respiratory support 24-Jul-2020 23:00:00-7779572/81 99 room air, no respiratory support 24-Jul-2020 22:30:00-6667669/85 100 room air, no respiratory support 24-Jul-2020 22:11:00-36.861347847/89 99 PHYSICAL EXAM CONSTITUTIONAL: Well appearing, well nourished, awake, alert, oriented to person, place, time/situation and in no apparent distress. HENMT: Airway patent, ears with clear tympanic membranes bilaterally. Nasal mucosa clear. Mouth with normal mucosa. Throat has no vesicles, no oropharyngeal exudates and uvula is midline. Face with no lymph node enlargement. EYES: Clear bilaterally, pupils equal, round and reactive to light. CARDIOVASCULAR: Normal rate, regular rhythm. Heart sounds S1, S2. No murmurs, rubs or gallops. PMI non-displaced. RESPIRATORY: Breath sounds clear and equal bilaterally. GASTROINTESTINAL: Abdomen soft, non-distended, no rebound, no guarding. Bowel sounds normal in all 4 quadrants. GENITOURINARY: No discharge, no lesions. MUSCULOSKELETAL: Spine appears normal, range of motion is not limited, no muscle or joint tenderness. NEUROLOGICAL: Alert and oriented, no focal deficits, no motor or sensory deficits. SKIN: Skin normal color for race, warm, dry and intact. No evidence of trauma. PSYCHIATRIC: Alert and oriented to person, place, time/situation. normal mood and affect. No apparent risk to self or others. HEME/LYMPH: No adenopathy or splenomegaly. No cervical, supraclavicular or inguinal lymphadenopathy. CLINICAL IMPRESSION Diagnosis/Annotation: ED Dx Name:Esophagus, foreign body, initial encounter Code:T18.108A Disposition: discharged Type: home ATTESTATION Comments/Additional Findings: 1 soft diet 2 follow-up on Monday with as her mother has an appointment on Monday, if symptoms worsen return to ED. CRITICAL CARE TIME Is this a critically ill patient: no Electronic Signatures: Jim Harrison () (Signed 25-Jul-2020 01:23) Authored: ED Notes, HPI, PMH, ROS, PE, Results/Vital Signs, Clinical Impression, Attestation, Chart Review, Scores Last Updated: 25-Jul-2020 01:23 by Jim Harrison () References: 1. Data Referenced From Triage - ED 24-Jul-2020 22:11 Normal [facility] Risk Screen - Adult Emergenc yon 07-25-2020 Risk Screen - Adult Emergency Preferred Language: Preferred Language: Preferred Language for Discussing Health Care (patient/designee)Ladan goodwin Advanced Directives: Advance Directive/DNRno Family Violence Adult: Abuse Screen: Are you or have you been threatened or abused physically, emotionally, or sexually by anyoneno Learning Assessment (Patient): Learning Assessment (Patient): Patient is Able to be Assessed for Learningyes Factors Influencing Readiness to Learnacuteness of illness Factors that Impact Ability to Learnnone Devices/Methods Used to Communicatenone Learning Preferencesaudio Cultural Considerationsnone Developmental Considerationsnone Roman Catholic Considerationsnone Learning Assessment (Other Learner): Learning Assessment (Other Learner): Other learner availableno Pressure Injury/TB/Substance: Pressure Injury: Pressure Injury Present on Admissionno Do you have a coughno Admission Risk Screen: Significant IndicatorsComplete CAGE: CAGE: Is this an injured patient at a Trauma Center ([facility]/[place] /[place]): no Electronic Signatures: Denita Trivedi (RN) (Signed 24-Jul-2020 22:44) Authored: Preferred Language, Advanced Directives, Family Violence Adult, Learning Assessment (Patient), Learning Assessment (Other Learner), Pressure Injury/TB/Substance, Pressure Injury, CAGE Last Updated: 24-Jul-2020 22:44 by Denita Trivedi (RN) [facility] Triage - EDon 07-25-2020 Triage - ED Quick Triage: Are You no Have You Given In The Last 6 Weeksno Are You Currently Breastfeedingno The patient and/or guardian verbally acknowledges placement for services into the following (when Urgent Care Service hours are operating):emergency department Chart Review: ARRIVAL INFORMATION Mode of Arrival: private vehicle CHIEF COMPLAINT KIERA BELLO is a Female patient with a chief complaint of foreign body throat (Patient c/o a piece or pork stuck in her throat x 3 hours, states history of previous issues with food sticking in throat). Triage Date/Time: 24-Jul-2020 22:11 SEPIDEH: 3 Pain Rating (0-10): 0 = None Vital Signs: Temperature: 97.5F ( 36.4C) Blood Pressure: 133/89 Mean: Heart Rate: 114 Respiratory Rate: 18 Pulse Oximetry: 99% Height: 5 feet 3 inches. 160.0 CM Weight: 120.1 pounds. Calculated 54.5 kg. (stated) Calculated BMI (kg/m2): 21.289 Calculated BSA (m2) 1.56 Gary Coma Scale: Best Eye Response: (E4) spontaneous Best Motor Response: (M6) obeys commands Best Verbal Response: (V5) oriented Harley Score: 15 Mask applied: yes Last menstrual period: 03-Jul-2020 SIDE LASTER History: control Patient has homicidal thoughts: no Risk Screens Suicide Risk Screen In the Past Month: Have you wished you were or wished you could go to sleep and not wake up no In the Past Month: Have you had any actual thoughts of killing yourself no In Your Lifetime: Have you ever done anything, started to do anything, or prepared to do anything to end your life no Bond Fall Scale Screening Has the patient fallen before (or is the patient in the ED as a result of a fall) has not had a fall Does the patient have an impaired gait does not have impaired gait Is the patient cognitively impaired not cognitively impaired Interventions: Bond Fall Interventions: LOW INTERVENTIONS: *patient oriented to surroundings and call system, * patient/family falls education completed and documented, *patients fall status communicated during bedside handoff, *whiteboard updated, *mode of toileting discussed with patient, *bed in low position with brakes locked, *call light in reach, * non-skid footwear TRAVEL HISTORY Travel History Coronavirus Screening: no exposure or symptoms PAIN Pain Scale Used: MALCOLM Pain Rating (0-10): 0 = None Past Medical History: Past Medical History Reviewedyes Electronic Signatures: Giuseppe Coleman) (Signed 24-Jul-2020 22:15) Entered: Risk Screens, Pain, Chart Review, Scores, Past Medical History Authored: Quick Triage, Risk Screens, Pain, Chart Review, Scores, Past Medical History Last Updated: 24-Jul-2020 22:15 by Giuseppe Coleman (GHANSHYAM) Normal [facility] HCG,URINEon 01-06-2020 Beta HCG ( test) Ql (U) Negative Normal Negative [facility] Comment on above: Performed By: #### H CGU #### [place] [id number] [place] [address] CBC AND DIFFERENTIALon 11-20 Basophils (Bld) [#/Vol] 0.10 10*3/uL Normal 0.00 - 0.1 0 [facility] Comment on above: Performed By: #### C BCDF #### [address] [address] Basophils/100 WBC (Bld) 1.0 % Normal 0.0 - 2.0 [facility] Comment on above: Performed By: #### C BCDF #### [address] [address] Eosinophils (Bld) [#/Vol] 0.60 10*3/uL Normal 0.00 - 0.70 [facility] Comment on above: Performed By: #### C BCDF #### [address] [address] Eosinophils/100 WBC (Bld) 9.6 % Normal 0.0 - 6.0 [facility] Comment on above: Performed By: #### C BCDF #### [address] [address] Erythrocyte distribution width (RBC) [Ratio] 13.5 % Normal 11.5 - 14.5 [facility] Comment on above: Performed By: #### C BCDF #### [address] [address] Hematocrit (Bld) [Volume fraction] 42.0 % Normal 36.0 - 46.0 [facility] Comment on above: Performed By: #### C BCDF #### [address] [address] Hemoglobin (Bld) [Mass/Vol] 13.7 g/dL Normal 12.0 - 16.0 [facility] Comment on above: Performed By: #### C BCDF #### [address] [address] Lymphocytes (Bld) [#/Vol] 2.20 10*3/uL Normal 1.20 - 4.80 [facility] Comment on above: Performed By: #### C BCDF #### [address] [address] Lymphocytes/100 WBC (Bld) 37.0 % Normal 13.0 - 44.0 [facility] Comment on above: Performed By: #### C BCDF #### [address] [address] MCHC (RBC) [Mass/Vol] 32.5 g/dL Normal 32.0 - 36.0 [facility] Comment on above: Performed By: #### C BCDF #### [address] [address] MCV (RBC) [Entitic vol] 92 fL Normal 80 - 100 [facility] Comment on above: Performed By: #### C BCDF #### [address] [address] Monocytes (Bld) [#/Vol] 0.30 10*3/uL Normal 0.10 - 1.0 0 [facility] Comment on above: Performed By: #### C BCDF #### [address] [address] Monocytes/100 WBC (Bld) 4.8 % Normal 2.0 - 10.0 [facility] Comment on above: Performed By: #### C BCDF #### [address] [address] Neutrophils (Bld) [#/Vol] 2.80 10*3/uL Normal 1.20 - 7.70 [facility] Comment on above: Result Comment: Perc ent differential counts (%) should be interpreted in the context of the absolute cell counts (cells/L). Performed By: #### C BCDF #### [address] [address] Neutrophils/100 WBC (Bld) 47.6 % Normal 40.0 - 80.0 [facility] Comment on above: Performed By: #### C BCDF #### [address] [address] NUCLEATED RBC 0.1 /100 WBC Normal [facility] Comment on above: Performed By: #### C BCDF #### [address] [address] Platelets (Bld) [#/Vol] 272 10*3/uL Normal 150 - 450 [facility] Comment on above: Performed By: #### C BCDF #### [address] [address] RBC 4.56 x10E12/L Normal 4.00 - 5.20 [facility] Comment on above: Performed By: #### C BCDF #### [address] [address] WBC (Bld) [#/Vol] 6.0 10*3/uL Normal 4.4 - 11.[address] [facility] Comment on above: Performed By: #### C BCDF #### [address] [address] HCG,SERUM QUALITATIVEon 10-26 HCG,SERUM QUALITATIVE Negative Normal Negative [facility] Comment on above: Performed By: #### H CGS #### [place] [id number] HCG,URINEon 11-21-2019 Beta HCG ( test) Ql (U) Negative Normal Negative [facility] Comment on above: Performed By: #### H CGU #### [place] [id number] HEPATIC FUNCTION PANELon Albumin [Mass/Vol] 4.7 g/dL Normal 3.4 - 5.[address] [facility] Comment on above: Performed By: #### H CGU #### [place] [id number] ALP [Catalytic activity/Vol] 60 U/L Normal 33 - 110 [facility] Comment on above: Performed By: #### H CGU #### [address] [address] ALT [Catalytic activity/Vol] 12 U/L Normal 7 - 45 [facility] Comment on above: Result Comment: Dulce ents treated with Sulfasalazine may generate falsely decreased results for ALT. Performed By: #### H CGU #### [place] [id number] AST [Catalytic activity/Vol] 19 U/L Normal 9 - 39 [facility] Comment on above: Performed By: #### H CGU #### [address] [address] Bilirubin [Mass/Vol] 0.6 mg/dL Normal 0.0 - 1.2 [facility] Comment on above: Performed By: #### H CGU #### [address] [address] Bilirubin.indirect [Mass/Vol] 0.1 mg/dL Normal 0.0 - 0.3 [facility] Comment on above: Performed By: #### H CGU #### [address] [address] Protein [Mass/Vol] 7.1 g/dL Normal 6.4 - 8.[address] [facility] Comment on above: Performed By: #### H CGU #### [address] [address] LIPID PANEL (CORONARY RISK 2 )on 11-21-2019 Cholesterol [Mass/Vol] 163 mg/dL Normal 0 - 199 [facility] Comment on above: Result Comment: . AGE DESIRABLE BORDERLINE HIGH HIGH 0-19 Y 0 - 169 170 - 199 >/= 200 20-24 Y 0 - 189 190 - 224 >/= 225 >24 Y 0 - 199 200 - 239 >/= 240 All ranges are based on fasting samples. Specific therapeutic targets will vary based on patient-specific cardiac risk. . Pediatric guidelines reference:Pediatrics 2011, 128(S5). Adult guidelines reference: NCEP ATPIII Guidelines, LUCINDA 2001, 258:2486-97 . Venipuncture immediately after or during the administration of Metamizole may lead to falsely low results. Testing should be performed immediately prior to Metamizole dosing. Performed By: #### L IPID #### [address] [address] Cholesterol in HDL [Mass/Vol] 51.0 mg/dL Normal [facility] Comment on above: Result Comment: . AGE VERY LOW LOW NORMAL HIGH 0-19 Y < 35 < 40 40-45 ---- 20-24 Y ---- < 40 >45 ---- >24 Y ---- < 40 40-60 >60 . Performed By: #### L IPID #### [address] [address] Cholesterol in LDL [Mass/Vol] 85 mg/dL Normal 0 - 109 [facility] Comment on above: Result Comment: . NEAR BORD AGE DESIRABLE OPTIMAL HIGH HIGH VERY HIGH 0-19 Y 0 - 109 --- 110-129 >/= 130 ---- 20-24 Y 0 - 119 --- 120-159 >/= 160 ---- >24 Y 0 - 99 100-129 130-159 160-189 >/=190 . Performed By: #### L IPID #### [address] [address] Cholesterol in VLDL [Mass/Vol] 27 mg/dL Normal 0 - 40 [facility] Comment on above: Performed By: #### L IPID #### [address] [address] Cholesterol.total/Heidi sterol in HDL [Mass ratio] 3.2 {ratio} Normal [facility] Comment on above: Result Comment: REF VALUES DESIRABLE < 3.4 HIGH RISK > 5.0 Performed By: #### L IPID #### [address] [address] NON-HDL CHOLESTEROL 112 mg/dL Normal 0 - 119 [facility] Comment on above: Result Comment: AGE DESIRABLE BORDERLINE HIGH HIGH VERY HIGH 0-19 Y 0 - 119 120 - 144 >/= 145 >/= 160 20-24 Y 0 - 149 150 - 189 >/= 190 ---- >24 Y 30 MG/DL ABOVE LDL CHOLESTEROL GOAL . Performed By: #### L IPID #### [address] [address] Triglyceride [Mass/Vol] 136 mg/dL Normal 0 - 149 [facility] Comment on above: Result Comment: . AGE DESIRABLE BORDERLINE HIGH HIGH VERY HIGH 0 D-90 D 19 - 174 ---- ---- ---- 91 D- 9 Y 0 - 74 75 - 99 >/= 100 ---- 10-19 Y 0 - 89 90 - 129 >/= 130 ---- 20-24 Y 0 - 114 115 - 149 >/= 150 ---- >24 Y 0 - 149 150 - 199 200- 499 >/= 500 . Venipuncture immediately after or during the administration of Metamizole may lead to falsely low results. Testing should be performed immediately prior to Metamizole dosing. Performed By: #### L IPID #### [address] [address] HCG,URINEon 10-19-2019 Beta HCG ( test) Ql (U) Negative Normal Negative [facility] Comment on above: Performed By: #### H CGU #### [address] [address] Culture, urine Bacteria identified Cx Nom (U) G. vaginalis (Presumptive) [facility] Work Phone: Bacteria identified Cx Nom (U) Positive [facility] Work Phone: Vital Signs Date Time Vital Sign Value Performing Clinician Faci lity 11-05-2024 10:20-0400 Body mass index (BMI) [Ratio] 29.12 kg/m2 Carey Frost APRN.CNM Work Phone: [facility] 11-05-2024 10:20-0400 Body weight 79.38 kg Carey Frost APRN.CNM Work Phone: [facility] 11-05-2024 10:20-0400 Diastolic blood pressure 70 mm[Hg] Carey Frost APRN.CNM Work Phone: [facility] 11-05-2024 10:20-0400 Systolic blood pressure 112 mm[Hg] Carey Frost APRN.CNM Work Phone: [facility] 10-23-2024 10:46-0400 Body mass index (BMI) [Ratio] 28.62 kg/m2 Daija Roblero APRN.CNM Work Phone: [facility] 10-23-2024 10:46-0400 Body weight 78.02 kg Daija Roblero APRN.CNM Work Phone: [facility] 10-23-2024 10:46-0400 Diastolic blood pressure 78 mm[Hg] Daija Roblero APRN.CNM Work Phone: [facility] 10-23-2024 10:46-0400 Systolic blood pressure 116 mm[Hg] Daija Alexisjohn CLOTH FINISHING RANGE OPERATOR.CNM Work Phone: [facility] 10-15-2024 10:06-0400 Body mass index (BMI) [Ratio] 28.79 kg/m2 Kamar Valdovinos MD Work Phone: [facility] 10-15-2024 10:06-0400 Body weight 78.47 kg Kamar Valdovinos MD Work Phone: [facility] 10-15-2024 10:06-0400 Diastolic blood pressure 72 mm[Hg] Kamar Valdovinos MD Work Phone: [facility] 10-15-2024 10:06-0400 Systolic blood pressure 110 mm[Hg] Kamar Valdovinos MD Work Phone: [facility] 10-02-2024 08:38-0400 Body mass index (BMI) [Ratio] 27.96 kg/m2 Mik Hamason CLOTH FINISHING RANGE OPERATOR.BOX TRUCK DRIVER Work Phone: [facility] 10-02-2024 08:38-0400 Body weight 76.2 kg Mik Haury CLOTH FINISHING RANGE OPERATOR.BOX TRUCK DRIVER Work Phone: [facility] 10-02-2024 08:38-0400 Diastolic blood pressure 60 mm[Hg] Mik Haury CLOTH FINISHING RANGE OPERATOR.BOX TRUCK DRIVER Work Phone: [facility] 10-02-2024 08:38-0400 Systolic blood pressure 110 mm[Hg] Mik Haury CLOTH FINISHING RANGE OPERATOR.BOX TRUCK DRIVER Work Phone: [facility] 09-18-2024 14:16-0400 Body mass index (BMI) [Ratio] 27.12 kg/m2 Katherine Brunner MD Work Phone: [facility] 09-18-2024 14:16-0400 Body weight 73.94 kg Katherine Brunner MD Work Phone: [facility] 09-18-2024 14:16-0400 Diastolic blood pressure 62 mm[Hg] Katherine Brunner MD Work Phone: [facility] 09-18-2024 14:16-0400 Systolic blood pressure 108 mm[Hg] Katherine Brunner MD Work Phone: [facility] 09-04-2024 09:52-0400 Body mass index (BMI) [Ratio] 27.12 kg/m2 Daija Roblero CLOTH FINISHING RANGE OPERATOR.CNM Work Phone: [facility] 09-04-2024 09:52-0400 Body weight 73.94 kg Daija Roblero CLOTH FINISHING RANGE OPERATOR.CNM Work Phone: [facility] 09-04-2024 09:52-0400 Diastolic blood pressure 64 mm[Hg] Daija Roblero CLOTH FINISHING RANGE OPERATOR.CNM Work Phone: [facility] 09-04-2024 09:52-0400 Systolic blood pressure 108 mm[Hg] Daija Roblero CLOTH FINISHING RANGE OPERATOR.CNM Work Phone: [facility] 08-21-2024 09:14-0400 Body mass index (BMI) [Ratio] 26.96 kg/m2 Carey Frost CLOTH FINISHING RANGE OPERATOR.CNM Work Phone: [facility] 08-21-2024 09:14-0400 Body weight 73.48 kg Carey Frost CLOTH FINISHING RANGE OPERATOR.CNM Work Phone: [facility] 08-21-2024 09:14-0400 Diastolic blood pressure 66 mm[Hg] Carey Frost CLOTH FINISHING RANGE OPERATOR.CNM Work Phone: [facility] 08-21-2024 09:14-0400 Systolic blood pressure 108 mm[Hg] Carey Frost CLOTH FINISHING RANGE OPERATOR.CNM Work Phone: [facility] 07-24-2024 09:12-0400 Body mass index (BMI) [Ratio] 25.59 kg/m2 Mik Mendoza APRN.BOX TRUCK DRIVER Work Phone: [facility] 07-24-2024 09:12-0400 Body weight 69.76 kg Mik Mendoza APRN.BOX TRUCK DRIVER Work Phone: [facility] 07-24-2024 09:12-0400 Diastolic blood pressure 64 mm[Hg] Mik Mendoza APRN.BOX TRUCK DRIVER Work Phone: [facility] 07-24-2024 09:12-0400 Systolic blood pressure 118 mm[Hg] Mik Mendoza APRN.BOX TRUCK DRIVER Work Phone: [facility] 06-24-2024 10:37-0400 Body mass index (BMI) [Ratio] 24.3 kg/m2 Katherine Brunner MD Work Phone: [facility] 06-24-2024 10:37-0400 Body weight 66.22 kg Katherine Brunner MD Work Phone: [facility] 06-24-2024 10:37-0400 Diastolic blood pressure 64 mm[Hg] Katherine Brunner MD Work Phone: [facility] 06-24-2024 10:37-0400 Systolic blood pressure 112 mm[Hg] Katherine Brunner MD Work Phone: [facility] 05-14-2024 08:10-0500 Body height 165.1 cm Darnell Blank MD Work Phone: [facility] 05-14-2024 08:10-0500 Body mass index (BMI) [Ratio] 23.23 kg/m2 Darnell Blank MD Work Phone: [facility] 05-14-2024 08:10-0500 Body weight 63.32 kg Darnell Blank MD Work Phone: [facility] 05-14-2024 08:10-0500 Diastolic blood pressure 80 mm[Hg] Darnell Blank MD Work Phone: [facility] 05-14-2024 08:10-0500 Respiratory rate 18 /min Darnell Blank MD Work Phone: [facility] 05-14-2024 08:10-0500 Systolic blood pressure 108 mm[Hg] Darnell Blank MD Work Phone: [facility] 03-28-2024 09:48-0500 Body height 166.3 cm Mik Haury CLOTH FINISHING RANGE OPERATOR.BOX TRUCK DRIVER Work Phone: [facility] 03-28-2024 09:48-0500 Body mass index (BMI) [Ratio] 21.98 kg/m2 Mik Mendoza CLOTH FINISHING RANGE OPERATOR.BOX TRUCK DRIVER Work Phone: [facility] 03-28-2024 09:48-0500 Body weight 60.78 kg Mik Mendoza CLOTH FINISHING RANGE OPERATOR.BOX TRUCK DRIVER Work Phone: [facility] 03-28-2024 09:48-0500 Diastolic blood pressure 62 mm[Hg] Mik Mendoza CLOTH FINISHING RANGE OPERATOR.BOX TRUCK DRIVER Work Phone: [facility] 03-28-2024 09:48-0500 Systolic blood pressure 104 mm[Hg] Mik Mendoza CLOTH FINISHING RANGE OPERATOR.BOX TRUCK DRIVER Work Phone: [facility] 04-15-2022 07:33-0500 Body temperature 97.9 [degF] Gia Mclaughlin MD Work Phone: [facility] [place] 04-15-2022 07:33-0500 Diastolic blood pressure 87 mm[Hg] Gia Mclaughlin MD Work Phone: [facility] [place] 04-15-2022 07:33-0500 Heart rate 79 /min Gia Mclaughlin MD Work Phone: [facility] [place] 04-15-2022 07:33-0500 Respiratory rate 16 /min Gia Mclaughlin MD Work Phone: [facility] [place] 04-15-2022 07:33-0500 SaO2% (BldA) [Mass fraction] 99 % Gia Mclaughlin MD Work Phone: [facility] 04-15-2022 07:33-0500 Systolic blood pressure 134 mm[Hg] Gia Mclaughlin MD Work Phone: [facility] 04-15-2022 06:00-0500 Body mass index (BMI) [Ratio] 28.86 kg/m2 Gia Mclaughlin MD Work Phone: [facility] 04-15-2022 06:00-0500 Body weight 73.9 kg Gia Mclaughlin MD Work Phone: [facility] [place] 04-12-2022 15:23-0500 Body height 160 cm Gia Mclaughlin MD Work Phone: [facility] [place] 04-12-2022 13:57-0500 Body temperature 97.9 [degF] [facility] 04-12-2022 13:57-0500 Diastolic blood pressure 91 mm[Hg] [facility] 04-12-2022 13:57-0500 Heart rate 79 /min [facility] 04-12-2022 13:57-0500 Respiratory rate 16 /min [facility] 04-12-2022 13:57-0500 SaO2% (BldA) [Mass fraction] 98 % [facility] 04-12-2022 13:57-0500 Systolic blood pressure 130 mm[Hg] [facility] 04-12-2022 09:51-0500 Body height 160.02 cm [facility] 04-12-2022 09:51-0500 Body mass index (BMI) [Ratio] 29.4 kg/m2 [facility] 04-12-2022 09:51-0500 Body weight 75.29 kg [facility] 10-19-2021 21:59-0400 Body height 160.02 cm [facility] Work Phone: 10-19-2021 21:59-0400 Body mass index (BMI) [Ratio] 22.1 kg/m2 [facility] Work Phone: 10-19-2021 21:59-0400 Body temperature 98.5 [degF] [facility] Work Phone: 10-19-2021 21:59-0400 Body weight 56.69 kg [facility] Work Phone: 10-19-2021 21:59-0400 Diastolic blood pressure 82 mm[Hg] [facility] Work Phone: 10-19-2021 21:59-0400 Heart rate 85 /min [facility] Work Phone: 10-19-2021 21:59-0400 Respiratory rate 16 /min [facility] Work Phone: 10-19-2021 21:59-0400 SaO2% (BldA) [Mass fraction] 100 % [facility] Work Phone: 10-19-2021 21:59-0400 Systolic blood pressure 125 mm[Hg] [facility] Work Phone: 05-27-2021 09:00-0500 Body height 160.02 cm Yoli Moreland Work Phone: [facility] [employer] [facility] [place] Work Phone: 05-27-2021 09:00-0500 Body mass index (BMI) [Ratio] 20.55 kg/m2 Yoli Moreland Work Phone: [facility] [employer] [facility] [place] Work Phone: 05-27-2021 09:00-0500 Body surface area Derived from formula 1.53 m2 Yoli Moreland Work Phone: [facility] [employer] [facility] [place] Work Phone: 05-27-2021 09:00-0500 Body weight 52.62 kg Yoli Moreland Work Phone: [facility] [employer] [facility] [place] Work Phone: 05-27-2021 09:00-0500 Diastolic blood pressure 68 mm[Hg] Yoli Moreland Work Phone: [facility] [employer] [facility] [place] Work Phone: 05-27-2021 09:00-0500 Heart rate 61 /min Yoli Moreland Work Phone: [facility] [employer] [facility] [place] Work Phone: 05-27-2021 09:00-0500 SaO2% (BldA) [Mass fraction] 95 % Yoli Moreland Work Phone: [facility] Work Phone: 05-27-2021 09:00-0500 Systolic blood pressure 110 mm[Hg] Yoli Moreland Work Phone: [facility] Work Phone: 04-28-2021 08:04-0500 Body height 160.02 cm Yoli Moreland Work Phone: [facility] Work Phone: 04-28-2021 08:04-0500 Body mass index (BMI) [Ratio] 20.9 kg/m2 Yoli Moreland Work Phone: [facility] Work Phone: 04-28-2021 08:04-0500 Body surface area Derived from formula 1.55 m2 Yoli Moreland Work Phone: [facility] Work Phone: 04-28-2021 08:04-0500 Body temperature 97.8 [degF] Yoli Moreland Work Phone: [facility] Work Phone: 04-28-2021 08:04-0500 Body weight 53.52 kg Yoli Moreland Work Phone: [facility] Work Phone: 04-28-2021 08:04-0500 Diastolic blood pressure 76 mm[Hg] Yoli Moreland Work Phone: [facility] Work Phone: 04-28-2021 08:04-0500 Systolic blood pressure 110 mm[Hg] Yoli Moreland Work Phone: [facility] Work Phone: 03-12-2021 08:19-0500 Body height 160.02 cm Yoli Moreland Work Phone: [facility] Work Phone: 03-12-2021 08:19-0500 Body mass index (BMI) [Ratio] 21.83 kg/m2 Yoli Moreland Work Phone: [facility] Work Phone: 03-12-2021 08:19-0500 Body surface area Derived from formula 1.57 m2 Yoli Moreland Work Phone: [facility] Work Phone: 03-12-2021 08:19-0500 Body temperature 97.7 [degF] Yoli Moreland Work Phone: [facility] Work Phone: 03-12-2021 08:19-0500 Body weight 55.91 kg Yoli Moreland Work Phone: [facility] Work Phone: 03-12-2021 08:19-0500 Diastolic blood pressure 70 mm[Hg] Yoli Moreland Work Phone: [facility] Work Phone: 03-12-2021 08:19-0500 Heart rate 78 /min Yoli Moreland Work Phone: [facility] Work Phone: 03-12-2021 08:19-0500 SaO2% (BldA) [Mass fraction] 98 % Yoli Moreland Work Phone: [facility] Work Phone: 03-12-2021 08:19-0500 Systolic blood pressure 118 mm[Hg] Yoli Moreland Work Phone: [facility] Work Phone: 02-25-2021 08:51-0500 Body height 160.02 cm Yoli Morealnd Work Phone: [facility] Work Phone: 02-25-2021 08:51-0500 Body mass index (BMI) [Ratio] 21.83 kg/m2 Yoli Moreland Work Phone: [facility] Work Phone: 02-25-2021 08:51-0500 Body surface area Derived from formula 1.57 m2 Yoli Moreland Work Phone: [facility] Work Phone: 02-25-2021 08:51-0500 Body temperature 98.2 [degF] Yoli Moreland Work Phone: [facility] Work Phone: 02-25-2021 08:51-0500 Body weight 55.91 kg Yoli Moreland Work Phone: [facility] Work Phone: 02-25-2021 08:51-0500 Diastolic blood pressure 72 mm[Hg] Yoli Moreland Work Phone: [facility] Work Phone: 02-25-2021 08:51-0500 Heart rate 102 /min Yoli Moreland Work Phone: [facility] Work Phone: 02-25-2021 08:51-0500 SaO2% (BldA) [Mass fraction] 98 % Yoli Moreland Work Phone: [facility] Work Phone: 02-25-2021 08:51-0500 Systolic blood pressure 122 mm[Hg] Yoli Moreland Work Phone: [facility] Work Phone: Encounters Encounter Date Encounter Type Care Provider Facility Start: 11-05-2024 End: 11-05-2024 Patient encounter procedure Carey Santosh [facility] Work Phone: OB/Gynecology Comment on above: Supervision of high risk in third trimester (HCC) (Primary Dx); 39 weeks gestation of (HCC); History of section; Desires (vaginal after ) trial (HCC); History of delivery, currently (HCC); Anemia complicating , third trimester (HCC); History of pre-eclampsia Start: 10-30-2024 End: 10-30-2024 ambulatory HODAN LUONG Facility:[facility] Start: 10-28-2024 End: 10-28-2024 ambulatory [facility] Start: 10-28-2024 End: 10-28-2024 Patient encounter procedure [facility] Comment on above: Population Health Na vigation Outreach (Ob/peds) Start: 10-23-2024 End: 10-23-2024 Patient encounter procedure Daija Reubenjohn [facility] Work Phone: OB/Gynecology Comment on above: 37 weeks gestation o f (HCC) (Primary Dx); Supervision of high risk in third trimester (HCC); History of section Start: 10-23-2024 End: 10-23-2024 ambulatory HODAN LUONG Facility:[facility] Start: 10-15-2024 End: 10-15-2024 ambulatory HODAN LUONG Facility:[facility] Start: 10-15-2024 End: 10-15-2024 Patient encounter procedure [employer] Maternal [facility] Comment on above: Supervision of high risk in third trimester ([facility]); 28 weeks gestation of (HCC); History of delivery, currently (HCC); History of pre-eclampsia Supervision of high risk in third trimester (HCC) (Primary Dx); Desires (vaginal after ) trial (HCC); History of section; History of delivery, currently (HCC); Anemia complicating , third trimester (HCC); 36 weeks gestation of (HCC) Start: 10-02-2024 End: 10-02-2024 Patient encounter procedure Mik Mendoza APRN.CNP Work Phone: OB/Gynecology Comment on above: Supervision of high risk in third trimester (HCC) (Primary Dx); 34 weeks gestation of (HCC); History of section; Desires (vaginal after ) trial (HCC); History of delivery, currently (HCC); History of pre-eclampsia; Anemia complicating , third trimester (HCC) Start: 10-02-2024 End: 10-02-2024 ambulatory [facility] Facility:[facility] Start: 09-18-2024 End: 09-18-2024 Patient encounter procedure Katherine Brunner MD Work Phone: OB/Gynecology Comment on above: Supervision of high risk in third trimester (HCC) (Primary Dx); History of delivery, currently (HCC); History of pre-eclampsia; History of section; Desires (vaginal after ) trial (HCC); 32 weeks gestation of (HCC) Supervision of high risk in third trimester (HCC); 28 weeks gestation of (HCC); History of delivery, currently (HCC); History of pre-eclampsia Start: 09-18-2024 End: 09-18-2024 ambulatory [facility] Facility:[facility] Start: 09-04-2024 End: 09-04-2024 Patient encounter procedure Daija Roblero APRN.CNM Work Phone: OB/Gynecology Comment on above: Supervision of high risk in third trimester (HCC) (Primary Dx); History of delivery, currently (HCC); History of pre-eclampsia; History of section; Desires (vaginal after ) trial (HCC); 30 weeks gestation of (HCC); Anemia complicating , third trimester (HCC) Start: 09-04-2024 End: 09-04-2024 ambulatory HODAN LUONG Facility:[facility] Start: 08-21-2024 End: 10-21-2024 Follow-up encounter Mik Mendoza APRN.CNP Work Phone: OB/Gynecology Start: 08-21-2024 End: 09-03-2024 Telephone encounter Carey Frost APRN.CNM Work Phone: OB/Gynecology Comment on above: Appointment Start: 08-21-2024 End: 08-21-2024 Patient encounter procedure Carey Frost APRN.CNM Work Phone: OB/Gynecology Comment on above: Supervision of high risk in third trimester (HCC) (Primary Dx); 28 weeks gestation of (HCC); History of delivery, currently (HCC); History of pre-eclampsia; History of section; Desires (vaginal after ) trial (HCC) Start: 08-21-2024 End: 08-21-2024 ambulatory HODAN LUONG Facility:[facility] Start: 07-24-2024 End: 07-24-2024 ambulatory HODAN LUONG Facility:[facility] Start: 07-24-2024 End: 07-24-2024 Patient encounter procedure Mik Mendoza APRN.CNP Work Phone: OB/Gynecology Comment on above: Supervision of high risk in second trimester (HCC) (Primary Dx); 24 weeks gestation of (HCC); History of delivery, currently (HCC); History of pre-eclampsia; History of section Start: 06-24-2024 End: 06-24-2024 Office outpatient visit 15 minutes Katherine Brunner MD Work Phone: OB/Gynecology Comment on above: Encounter for superv ision of normal first in second trimester (Primary Dx); History of pre-eclampsia; History of section; 20 weeks gestation of Start: 06-24-2024 End: 06-24-2024 ambulatory HODAN LUONG Facility:[facility] Start: 06-24-2024 End: 06-24-2024 Patient encounter procedure [employer] [facility] Comment on above: Encounter for anatomic survey (Primary Dx); 20 weeks gestation of Start: 05-20-2024 End: 05-20-2024 Telephone encounter Mik Mendoza APRN.BOX TRUCK DRIVER Work Phone: OB/Gynecology Comment on above: Question (OB Questio n) Start: 05-14-2024 End: 07-14-2024 Follow-up encounter Collette Cisneros MD Work Phone: OB/Gynecology Start: 05-14-2024 End: 05-14-2024 ambulatory MIK MENDOZA Facility:[facility] Start: 05-14-2024 End: 05-14-2024 ambulatory HODAN LUONG Facility:[facility] Start: 05-14-2024 End: 05-14-2024 Patient encounter procedure Darnell Blank MD Work Phone: Maternal Medicine Comment on above: History of d elivery, currently (Primary Dx); History of section; History of pre-eclampsia; 14 weeks gestation of Encounter for stefano fletcher screening for malformation using ultrasound (Primary Dx); 14 weeks gestation of ; Encounter for (NT) nuchal translucency scan History of pre-eclam psia (Primary Dx) Start: 03-29-2024 End: 03-29-2024 Telephone encounter Vaughn Hood RN Obstetrics/Gynecolog y Comment on above: PRAF Start: 03-28-2024 End: 03-28-2024 ambulatory HODAN LUONG Facility:[facility] Start: 03-28-2024 End: 03-28-2024 Patient encounter procedure Mik Mendoza APRN.BOX TRUCK DRIVER Work Phone: OB/Gynecology Comment on above: Encounter for superv ision of high risk in first trimester, antepartum (Primary Dx); 7 weeks gestation of ; History of pre-eclampsia; History of delivery, currently ; History of section; Constipation during in first trimester; Heartburn during in first trimester Start: 02-28-2024 End: 02-28-2024 Telephone encounter Deb Simmons MD Work Phone: OB/Gynecology Comment on above: Patient Update Start: 01-10-2024 End: 01-10-2024 ambulatory Bibiana WALDRON Facility:[facility] Start: 12-19-2023 End: 12-26-2023 Telephone encounter Darnell Blank MD Work Phone: OB/Gynecology Comment on above: Appointment Start: 08-24-2022 End: 08-24-2022 ambulatory [facility] Work Phone: Start: 08-24-2022 End: 08-24-2022 Patient encounter procedure [facility] [place] vp client services Off Start: 05-24-2022 End: 05-24-2022 ambulatory [facility] Work Phone: Start: 05-24-2022 End: 05-24-2022 Patient encounter procedure [facility] [place] vp client services Off Start: 04-12-2022 End: 04-12-2022 ambulatory GIA MCLAUGHLIN [facility] Start: 04-12-2022 End: 04-15-2022 Evaluation and management of inpatient GIA [facility] Start: 04-12-2022 End: 04-15-2022 Evaluation and management of inpatient Gia Mclaughlin MD Work Phone: [facility] Comment on above: S/P (Prima ry Dx); Preeclampsia, severe, third trimester Start: 04-12-2022 End: 04-12-2022 ambulatory [facility] Work Phone: Start: 04-12-2022 End: 04-12-2022 Patient encounter procedure [facility] Start: 03-29-2022 End: 03-29-2022 ambulatory [facility] Work Phone: Start: 03-29-2022 End: 03-29-2022 [facility] [facility] [place] vp client services Off Start: 01-05-2022 End: 01-05-2022 Patient encounter procedure [facility], Specimen Start: 11-04-2021 End: 11-04-2021 Patient encounter procedure [facility], [facility] Start: 10-21-2021 End: 10-21-2021 Patient encounter procedure [facility] [place] vp client services Off Start: 10-19-2021 End: 10-20-2021 Emergency department patient visit [facility] Start: 05-27-2021 Office outpatient vi sit 15 minutes Yoli Moreland Work Phone: [facility] Work Phone: Start: 04-28-2021 Office outpatient vi sit 15 minutes Yoli Moreland Work Phone: [facility] Work Phone: Start: 04-28-2021 Patient encounter procedure Yoli Moreland Work Phone: [facility] Work Phone: Start: 03-12-2021 Office outpatient vi sit 15 minutes Yoli Moreland Work Phone: [facility] Work Phone: Start: 03-05-2021 Chart Update Yoli sánchez Work Phone: [facility] 205 DO Work Phone: Start: 02-25-2021 Office outpatient ne w 30 minutes Yoli Moreland Work Phone: [facility] Work Phone: Procedures Date Procedure Procedure Detail Performing Clinician Start: 10-15-2024 Urnls dip stick/tabl et rgnt non-auto w/o micrscp Kamar Valdovinos MD Work Phone: Start: 10-15-2024 Us preg uterus after 1st trimest 1/ gestation Carey Frost APRN.CNM Work Phone: Start: 09-18-2024 Us preg uterus after 1st trimest 03/27 gestation Carey Frost JANICE.CNM Work Phone: Start: 06-24-2024 Us preg uterus after 1st trimest 03/27 gestation Mik Mendoza JANICE.BOX TRUCK DRIVER Work Phone: Start: 05-14-2024 Antibody screen HODAN LUONG Comment on above: Order Comment: Speci men Type: BLOOD SPECIMENOrdering Facility: [facility] Address: [address] [place] [address] Performed By: #### T SPN ####CC MAIN BLOOD BANKCLIA [id number] [address] STATES [facility] Start: 05-14-2024 Us nuchal translucency 1st gestation Mik Mendoza JANICE.BOX TRUCK DRIVER Work Phone: Start: 03-28-2024 H/O: section History of section Mik Brownmason CAMACHO.BOX TRUCK DRIVER Work Phone: Start: 03-28-2024 Us uterus l imited fetuses Mik Mendoza JANICE.BOX TRUCK DRIVER Work Phone: Start: 04-14-2022 Comprehensive metabo lic panel Harris Beltre DO Work Phone: Start: 04-13-2022 Comprehensive metabo lic panel Mono Herrera DO Work Phone: Start: 04-13-2022 Comprehensive metabo lic panel Mono Herrera DO Work Phone: Start: 04-13-2022 Comprehensive metabo lic panel Mono Herrera DO Work Phone: Start: 04-12-2022 Protein total xcpt refractometry urine Mono Herrera DO Work Phone: Start: 04-12-2022 Antinuclear antibodies lucia Anabel Nolen MD Work Phone: Start: 04-12-2022 Comprehensive metabo lic panel Harris Beltre DO Work Phone: Start: 04-12-2022 ABO and Rh group [Ty pe] in Blood by Confirmatory method Harris Ramospoonam DO Work Phone: Start: 04-12-2022 Blood typing serologic abo Harris Ramospoonam DO Work Phone: Start: 04-12-2022 Comprehensive metabo lic panel Harris Ramospoonam DO Work Phone: Start: 01-05-2022 Chlamydia trachomatis C tho Mery Huston DO Work Phone: Start: 11-04-2021 Antibody hiv-1&hiv-2 single result Zuleyma Huston DO Work Phone: Start: 11-04-2021 Iaad ia hepatitis b surface antigen Zuleyma Huston DO Work Phone: Start: 11-04-2021 [facility] RH FACT OR, EXTERNAL RESULT Zuleyma Huston DO Work Phone: Start: 10-19-2021 Transvaginal obstetr ic ultrasonography section Anhtuan T H uynh DO Work Phone: H/O: section S/P Gia Mclaughlin MD Work Phone: H/O: section History of section Darnell Blank MD Work Phone: H/O: section History of section Katherine Brunner MD Work Phone: H/O: section History of section Mik Mendoza APRN.BOX TRUCK DRIVER Work Phone: H/O: section History of section Carey Frost CLOTH FINISHING RANGE OPERATOR.CNM Work Phone: H/O: section History of section Daija Roblero CLOTH FINISHING RANGE OPERATOR.CNM Work Phone: H/O: section History of section Katherine Brunner MD Work Phone: H/O: section History of section Mik Mendoza APRN.BOX TRUCK DRIVER Work Phone: H/O: section History of section Kamar Valdovinos MD Work Phone: H/O: section History of section Daija Roblero APRN.CNEvangelina Work Phone: H/O: section History of section Carey Frost APRN.CNM Work Phone: Operative procedure on foot Yoli Moreland Work Phone: Urine culture Urine culture Plan of Treatment Date Care Activity Detail Author Start: 2075 RSV Vaccine (1 - 1-d ose 75+ series) RSV Vaccine (1 - 1-dose 75+ series) [facility] Start: 2050 Zoster Vaccines (1 o f 2) Zoster Vaccines (1 of 2) [facility] Start: 03-28-2025 GC (Gonorrhea) Screening (18-24) GC (Gonorrhea) Screening (18-24) [facility] Start: 03-28-2025 Screening for Chlamy leandro trachomatis Chlamydia Screening () [facility] Start: 03-28-2025 Screening for malign ant neoplasm of cervix Cervical Cancer Screening [facility] Start: 11-25-2024 Influenza vaccination [facility] Start: 11-11-2024 End: 11-11-2024 Patient encounter procedure 11/11/2024 10:50 AM EDT Routine Office Visit OB/Gynecology [address] [place] [address] Collette Cisneros MD [address] [place] [address] OB OB/Gynecology Comment on above: OB Start: 11-05-2024 End: 11-05-2024 Patient encounter procedure 11/05/2024 10:30 AM EDT Routine Office Visit OB/Gynecology [address] [place] [address] Carey Frost APRN.CNM [address] [place] [address] OB OB/Gynecology Comment on above: OB Start: 10-30-2024 End: 10-30-2024 Patient encounter procedure 10/30/2024 10:20 AM EDT Routine Office Visit OB/Gynecology [address] [place] [address] Katherine Brunner MD [address] [place] [address] (Fax) OB OB/Gynecology Comment on above: OB Start: 10-23-2024 End: 10-23-2024 Patient encounter procedure 10/23/2024 10:45 AM EDT Routine Office Visit OB/Gynecology [address] [place] [address] Daija Roblero APRN.CN [address] [place] [address] (Fax) OB OB/Gynecology Comment on above: OB Start: 10-22-2024 End: 10-22-2024 Patient encounter procedure 10/22/2024 10:30 AM EDT Routine Office Visit OB/Gynecology [address] [place] [address] Katherine Brunner MD [address] [place] [address] (Fax) OB OB/Gynecology Comment on above: OB Start: 10-15-2024 End: 10-15-2024 Patient encounter procedure [facility] Comment on above: Growth Growth/OB Start: 10-02-2024 End: 10-02-2024 Patient encounter procedure 10/02/2024 8:30 AM EDT Routine Office Visit OB/Gynecology [address] [place] [address] Collette Cisneros MD [address] [place] [address] (Fax) OB OB/Gynecology Comment on above: OB Start: 09-18-2024 End: 09-18-2024 Patient encounter procedure [facility] Comment on above: Growth OB Start: 09-04-2024 End: 12-04-2024 CBC panel - Blood by Automated count COMPLETE BLOOD COUNT Lab Routine Anemia complicating , third trimester (HCC) Expected: 09/04/2024, Expires: 12/04/2024 [facility] Work Phone: Comment on above: Expected: 09/04/2024 , Expires: 12/04/2024 Start: 09-04-2024 End: 09-04-2024 Patient encounter procedure 09/04/2024 9:45 AM EDT Routine Office Visit OB/Gynecology [address] [place] [address] Daija Roblero APRN.CNM [address] [place] [address] OB OB/Gynecology Comment on above: OB Start: 08-21-2024 End: 08-21-2024 Patient encounter procedure 08/21/2024 9:15 AM EDT Routine Office Visit OB/Gynecology [address] [place] [address] Carey Frost APRN.CNM [address] [place] [address] OB Routine OB/Gynecology Comment on above: OB Routine Start: 08-21-2024 End: 08-21-2024 ambulatory 08/21/2024 9:00 AM EDT Results Only [place] [facility] Laboratory [address] [place] [address] Glucose Test and Labs [facility] Comment on above: Glucose Test and Lab s Start: 07-24-2024 End: 10-23-2024 CBC panel - Blood by Automated count COMPLETE BLOOD COUNT Lab Routine Supervision of high risk in second trimester (HCC) 24 weeks gestation of (HCC) Expected: 07/24/2024, Expires: 10/23/2024 [facility] Comment on above: Expected: 07/24/2024 , Expires: 10/23/2024 Start: 07-24-2024 End: 10-23-2024 GESTATIONAL GLUCOSE SCREEN, 1-HOUR, 50 GRAM, NON-FASTING GESTATIONAL GLUCOSE SCREEN, 1-HOUR, 50 GRAM, NON-FASTING Lab Routine Supervision of high risk in second trimester (HCC) 24 weeks gestation of (HCC) Expected: 07/24/2024, Expires: 10/23/2024 [facility] Work Phone: Comment on above: Expected: 07/24/2024 , Expires: 10/23/2024 Start: 07-24-2024 End: 10-23-2024 SYPHILIS TREPONEMAL W/REFLEX SYPHILIS TREPONEMAL W/REFLEX Lab Routine Supervision of high risk in second trimester (HCC) 24 weeks gestation of (HCC) Expected: 07/24/2024, Expires: 10/23/2024 [facility] Comment on above: Expected: 07/24/2024 , Expires: 10/23/2024 Start: 07-24-2024 End: 07-24-2024 Patient encounter procedure 07/24/2024 8:00 AM EDT Routine Office Visit OB/Gynecology [address] [place] [address] Daija Roblero APRN.CN [address] [place] [address] OB OB/Gynecology Comment on above: OB Start: 06-24-2024 End: 06-24-2024 Patient encounter procedure [facility] Comment on above: Anatomy Anatomy/OB Start: 05-14-2024 End: 08-13-2024 Chromosome 21 trisomy [Presence] in Blood or Tissue by Cytogenetics [facility] Work Phone: Comment on above: Expected: 05/14/2024 , Expires: 08/13/2024 Start: 05-14-2024 End: 05-14-2024 Patient encounter procedure [facility] Comment on above: Nuchal Nuchal/Consult to ZECHARIAH Stallings OB Start: 04-25-2024 End: 04-25-2024 Patient encounter procedure 04/25/2024 10:20 AM EST Routine Office Visit OB/Gynecology [address] [place] [address] Deb Simmons MD [address] [place] [address] -last menstural period 02/04/24 OB/Gynecology Comment on above: -last menst ural period 02/04/24 Start: 03-28-2024 End: 06-27-2024 ANEMIA REFLEX PANEL ANEMIA REFLEX PANEL Lab Routine 7 weeks gestation of Expected: 03/28/2024, Expires: 06/27/2024 [facility] Work Phone: Comment on above: Expected: 03/28/2024 , Expires: 06/27/2024 Start: 03-28-2024 End: 06-27-2024 Comprehensive metabolic 2000 panel - Serum or Plasma COMPREHENSIVE METABOLIC PANEL Lab Routine History of pre-eclampsia Expected: 03/28/2024, Expires: 06/27/2024 [facility] Comment on above: Expected: 03/28/2024 , Expires: 06/27/2024 Start: 03-28-2024 End: 06-27-2024 Hemoglobin A1c in Blood HEMOGLOBIN A1C Lab Routine 7 weeks gestation of Expected: 03/28/2024, Expires: 06/27/2024 [facility] Comment on above: Expected: 03/28/2024 , Expires: 06/27/2024 Start: 03-28-2024 End: 06-27-2024 Hepatitis B virus surface Ag [Presence] in Serum HEPATITIS B SURFACE ANTIGEN Lab Routine 7 weeks gestation of Expected: 03/28/2024, Expires: 06/27/2024 [facility] Comment on above: Expected: 03/28/2024 , Expires: 06/27/2024 Start: 03-28-2024 End: 06-27-2024 Hepatitis C virus Ab [Presence] in Serum HEPATITIS C ANTIBODY IA WITH CONFIRMATION Lab Routine 7 weeks gestation of Expected: 03/28/2024, Expires: 06/27/2024 [facility] Comment on above: Expected: 03/28/2024 , Expires: 06/27/2024 Start: 03-28-2024 End: 06-27-2024 HIV 1+2 Ab [Presence] in Serum or Plasma by Immunoassay HIV 1/2 COMBO WITH REFLEX TO DIFFERENTIATION Lab Routine 7 weeks gestation of Expected: 03/28/2024, Expires: 06/27/2024 [facility] Comment on above: Expected: 03/28/2024 , Expires: 06/27/2024 Start: 03-28-2024 End: 03-28-2025 NUCHAL TRANSLUCENCY WHI NUCHAL TRANSLUCENCY WHI Anc Imaging Routine 7 weeks gestation of Expected: 03/28/2024, Expires: 03/28/2025 [facility] Comment on above: Expected: 03/28/2024 , Expires: 03/28/2025 Start: 03-28-2024 End: 03-28-2025 OBSTETRIC ULTRASOUND WHI OBSTETRIC ULTRASOUND WHI Anc Imaging Routine 7 weeks gestation of Expected: 03/28/2024, Expires: 03/28/2025 [facility] Comment on above: Expected: 03/28/2024 , Expires: 03/28/2025 Start: 03-28-2024 End: 06-27-2024 Protein/Creatinine [Mass Ratio] in Urine PROTEIN / CREATININE RATIO Lab Routine History of pre-eclampsia Expected: 03/28/2024, Expires: 06/27/2024 [facility] Comment on above: Expected: 03/28/2024 , Expires: 06/27/2024 Start: 03-28-2024 End: 06-27-2024 RUBELLA IGG ANTIBODY RUBELLA IGG ANTIBODY Lab Routine 7 weeks gestation of Expected: 03/28/2024, Expires: 06/27/2024 [facility] Comment on above: Expected: 03/28/2024 , Expires: 06/27/2024 Start: 03-28-2024 End: 06-27-2024 SYPHILIS TREPONEMAL W/REFLEX SYPHILIS TREPONEMAL W/REFLEX Lab Routine 7 weeks gestation of Expected: 03/28/2024, Expires: 06/27/2024 [facility] Comment on above: Expected: 03/28/2024 , Expires: 06/27/2024 Start: 03-28-2024 End: 06-27-2024 Thyrotropin [Units/volume] in Serum or Plasma THYROID STIMULATING HORMONE Lab Routine History of pre-eclampsia Expected: 03/28/2024, Expires: 06/27/2024 [facility] Comment on above: Expected: 03/28/2024 , Expires: 06/27/2024 Start: 03-28-2024 End: 06-27-2024 TYPE + SCREEN TYPE + SCREEN Blood Bank Routine 7 weeks gestation of Expected: 03/28/2024, Expires: 06/27/2024 [facility] Comment on above: Expected: 03/28/2024 , Expires: 06/27/2024 Start: 03-28-2024 End: 03-28-2024 Patient encounter procedure 03/28/2024 9:30 AM EST Initial Office Visit OB/Gynecology [address] [place], [place] [id number] 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 [address] -last menstural period 02/04/24 OB/Gynecology Comment on above: -last menst ural period 02/04/24 Start: 02-26-2024 End: 02-26-2024 Patient encounter procedure 02/26/2024 9:40 AM EST Office Visit OB/Gynecology [address] [place] [address] Deb Simmons MD [address] [place] [address] Preconceptual counseling- history of preeclampsia. Will get C Section op report sent from [facility] OB/Gynecology Comment on above: Preconceptual counse ling- history of preeclampsia. Will get C Section op report sent from [facility] Start: 11-26-2023 Covid-19 Vaccine () Covid-19 Vaccine () [facility] Start: 11-26-2023 Influenza vaccination Influenza Vacc ine (#1) [facility] Start: 01-05-2023 Screening for Chlamy leandro trachomatis Chlamydia and Gonorrhea Screening [facility] Start: 04-12-2022 Therapeutic injectio n iv push each new drug TX/PRO/DX INJ NEW DRUG [facility] Start: 04-12-2022 Fluid restriction [facility] Start: 04-12-2022 [facility] Start: 04-12-2022 End: 04-12-2022 Fluid restriction [facility] Start: 04-12-2022 End: 04-12-2022 [facility] Start: 04-12-2022 Nonstress test [facility] Start: 04-12-2022 Obstetric monitoring [facility] Start: 04-12-2022 Vital signs measurements [facility] Start: 11-25-2021 Influenza vaccination Influenza Vacc ine (#1) [facility] Start: 10-20-2021 [facility] Work Phone: Start: 07-01-2021 EPV, Provider: Yoli Moreland, Status: Pen, Time: 9:00 AM EPV, Provider: Yoli Moreland, Status: Pen, Time: 9:00 AM [facility]: Start: 05-27-2021 EPV, Provider: Yoli Moreland, Status: Pen, Time: 9:00 AM EPV, Provider: Yoli Moreland, Status: Pen, Time: 9:00 AM [facility] Work [facility]: Start: 2021 Screening for malign ant neoplasm of cervix [facility] Start: 04-01-2021 FUV, Provider: Yoli Moreland, Status: Pen, Time: 10:40 AM FUV, Provider: Yoli Moreland, Status: Pen, Time: 10:40 AM [facility] Work Phone: Start: 03-11-2021 EPV, Provider: Yoli Moreland, Status: Pen, Time: 8:40 AM [facility] Work Phone: Start: 2019 DTaP/Tdap/Td Vaccine s (1 - Tdap) DTaP/Tdap/Td Vaccines (1 - Tdap) [facility] Start: 2019 Hepatitis B Vaccine (1 of 3 - 19+ 3-dose series) Hepatitis B Vaccine (1 of 3 - 19+ 3-dose series) [facility] Start: 2019 Urine microalbumin profile DTaP,Tdap,Td Vaccine (1 - Tdap) [facility] Start: 2018 Anxiety Screening Anxiety Screening [facility] Start: 2018 Depression Screening Depression Scre ening [facility] Start: 2018 GC (Gonorrhea) Screening () GC (Gonorrhea) Screening (18-24) [facility] Start: 2018 Hepatitis C screening Hepatitis C Sc reening [facility] Start: 2018 HIV screening HIV Screening [facility] Start: 2018 Screening for Chlamy leandro trachomatis Chlamydia Screening () [facility] Start: 2016 Meningococcal B Vacc ine (1 of 2 - Standard) Meningococcal B Vaccine (1 of 2 - Standard) [facility] Start: 2016 Meningococcal B Vaccine: Consider Based On Risk (1 of 2 - Patient Seeks Protection) Meningococcal B Vaccine: Consider Based On Risk (1 of 2 - Patient Seeks Protection) [facility] Start: 2015 HPV Vaccine (1 - 3-d ose series) HPV Vaccine (1 - 3-dose series) [facility] Start: 2014 Peds To Adult Transition Annual Assessment Peds To Adult Transition Annual Assessment [facility] Start: 2012 Peds To Adult Transition Initial Discussion Peds To Adult Transition Initial Discussion [facility] Start: 2011 HPV Vaccines (1 - 2-dose series) HPV Vaccines (1 - 2-dose series) [facility] Start: 2001 MMR Vaccines (1 of 1 - Standard series) MMR Vaccines (1 of 1 - Standard series) [facility] Start: 2001 Varicella vaccination Varicell a Vaccines (1 of 2 - 2-dose childhood series) [facility] Start: 2000 COVID-19 Vaccine (#1) COVID-19 Vacci ne (#1) [facility] Start: 2000 Hepatitis B Vaccines (1 of 3 - 3-dose series) Hepatitis B Vaccines (1 of 3 - 3-dose series) [facility] Start: 2000 Lipid panel Lipid Panel [facility] Bacteria identified in Urine by Culture URINE CULTURE Microbiology Routine 7 weeks gestation of 03/28/2024 10:27 AM [facility] Chlamydia trachomatis+Neisseria gonorrhoeae DNA [Presence] in Unspecified specimen by ÁNGEL with probe detection GONORRHEA/CHLAMYDIA NAAT Lab Routine 7 weeks gestation of 03/28/2024 10:27 AM [facility] End: 08-05-2025 OBSTETRIC ULTRASOUND WHI OBSTETRIC ULTRASOUND WHI Anc Imaging Routine Supervision of high risk in third trimester ([facility]) 28 weeks gestation of ([facility]) History of delivery, currently ([facility]) History of pre-eclampsia Once per month for 3 Occurrences starting 08/21/2024 until 08/05/2025 [facility] Work Phone: Comment on above: Once per month for 3 Occurrences starting 08/21/2024 until 08/05/2025 PAP TEST PAP TEST Lab Abhijit de paze 7 weeks gestation of 03/28/2024 10:27 AM [facility] Patient Education ED Possible Mi scarriage ... [facility] Work Phone: Patient referral [facility] Work Phone: ROUTINE, GR OUP B STREPTOCOCCUS BY PCR ROUTINE, GROUP B STREPTOCOCCUS BY PCR Microbiology Routine Supervision of high risk in third trimester ([facility]) 10/15/2024 10:25 AM EDT [facility] Work Phone: End: 04-12-2022 Tissue exam Tissue exam Pathology and Cytology Routine Once (Lab) for 1 Occurrences starting 04/12/2022 until 04/12/2022 [facility] Work Phone: Comment on above: Once (Lab) for 1 Occ urrences starting 04/12/2022 until 04/12/2022 URINE OB DIP B/O URINE OB DIP B/ O Lab Routine Supervision of high risk in third trimester ([facility]) Desires (vaginal after ) trial ([facility]) History of section History of delivery, currently ([facility]) History of pre-eclampsia Anemia complicating , third trimester ([facility]) Ordered: 10/02/2024 [facility] Work Phone: Comment on above: Ordered: 10/02/2024 URINE OB DIP B/O URINE OB DIP B/ O Lab Routine 37 weeks gestation of ([facility]) Supervision of high risk in third trimester ([facility]) History of section Ordered: 10/23/2024 [facility] Work Phone: Comment on above: Ordered: 10/23/2024 URINE OB DIP B/O URINE OB DIP B/ O Lab Routine Supervision of high risk in third trimester ([facility]) History of section Desires (vaginal after ) trial ([facility]) History of delivery, currently ([facility]) Anemia complicating , third trimester ([facility]) History of pre-eclampsia 39 weeks gestation of ([facility]) Ordered: 11/05/2024 [facility] Work Phone: Comment on above: Ordered: 11/05/2024 End: 04-12-2022 US biophysical profile wo non stress testing [facility] Comment on above: Once for 1 Occurrenc es starting 04/12/2022 until 04/12/2022 End: 04-12-2022 US for [facility] Comment on above: Once for 1 Occurrenc es starting 04/12/2022 until 04/12/2022 End: 04-12-2022 US.doppler Umbilical artery [facility] Work Phone: Comment on above: Once for 1 Occurrenc es starting 04/12/2022 until 04/12/2022 Immunizations Immunization Date Immunization Notes Care Provider Lv montero 11-15-2017 Human Papillomavirus 9-valent vaccine Yoli Moreland Work Phone: [facility] Work Phone: 11-15-2017 meningococcal B vacc ine, fully recombinant Yoli Moreland Work Phone: [facility] Work Phone: 11-15-2017 meningococcal polysaccharide (groups A, C, Y and W-135) diphtheria toxoid conjugate vaccine (MCV4P) Yoli Moreland Work Phone: [facility] Work Phone: 10-03-2016 meningococcal B vacc ine, fully recombinant [facility] Work Phone: [facility] Work Phone: 03-02-2016 Human Papillomavirus 9-valent vaccine [facility] Work Phone: [facility] Work Phone: 07-09-2015 Human Papillomavirus 9-valent vaccine [facility] Work Phone: [facility] Work Phone: 01-16-2013 influenza virus vacc ine, live, attenuated, for intranasal use [facility] Work Phone: [facility] Work Phone: 09-14-2005 diphtheria, tetanus toxoids and acellular pertussis vaccine, unspecified formulation [facility] Work Phone: [facility] Work Phone: 09-14-2005 measles, mumps and rubella virus vaccine [facility] Work Phone: [facility] Work Phone: 09-14-2005 poliovirus vaccine, inactivated [facility] Work Phone: [facility] Work Phone: 07-11-2002 diphtheria, tetanus toxoids and acellular pertussis vaccine, unspecified formulation [facility] Work Phone: [facility] Work Phone: 07-11-2002 haemophilus influenz ae type b vaccine, conjugate unspecified formulation [facility] Work Phone: [facility] Work Phone: 07-11-2002 poliovirus vaccine, inactivated Yoli Moreland Work Phone: [facility] Work Phone: 07-11-2002 varicella virus vaccine [facility] Work Phone: [facility] Work Phone: 09-24-2001 measles, mumps and rubella virus vaccine [facility] Work Phone: [facility] Work Phone: 05-21-2001 haemophilus influenz ae type b conjugate and Hepatitis B vaccine [facility] Work Phone: [facility] Work Phone: 2000 diphtheria, tetanus toxoids and acellular pertussis vaccine, unspecified formulation [facility] Work Phone: [facility] Work Phone: 2000 diphtheria, tetanus toxoids and acellular pertussis vaccine, unspecified formulation [facility] Work Phone: [facility] Work Phone: 2000 haemophilus influenz ae type b conjugate and Hepatitis B vaccine [facility] Work Phone: [facility] Work Phone: 2000 poliovirus vaccine, inactivated [facility] Work Phone: [facility] Work Phone: 2000 pneumococcal conjuga te vaccine, 7 valent [facility] Work Phone: [facility] Work Phone: 2000 diphtheria, tetanus toxoids and acellular pertussis vaccine, unspecified formulation [facility] Work Phone: [facility] Work Phone: 2000 haemophilus influenz ae type b conjugate and Hepatitis B vaccine [facility] Work Phone: [facility] Work Phone: 2000 pneumococcal conjuga te vaccine, 7 valent Yoli Navarro [facility] Work Phone: [facility] Work Phone: 2000 poliovirus vaccine, inactivated [facility] Work Phone: [facility] Work Phone: NEGATED: Highlighted row has not occurred!04-15-2022 measles, mumps and rubella virus vaccine Gia Mclaughlin MD Work Phone: [facility] Comment on above: Deferred: Contraindi cation NEGATED: Highlighted row has not occurred!04-15-2022 tetanus toxoid, reduced diphtheria toxoid, and acellular pertussis vaccine, adsorbed Gia Mclaughlin MD Work Phone: [employer] Comment on above: Deferred: No longer needed Payers Date Payer Category Payer Private Health Insurance MMO SUP ERMED PPO [id number] 2024 Blue Cross Blue Shield [id number] 2024 Unknown [id number] 2024 Self-pay [id number] 2024 Unknown [id number] 2023 Unknown 2022 Unknown [id number] 2022 Medicaid [id number] 2022 Medicaid [id number] Unknown [id number] Unknown [id number] Social History Date Type Detail Facility Start: 02-14-2024 End: 05-14-2024 Caffeine use Caffeine use -[facility] Phone: Start: 10-19-2021 End: 10-19-2021 Tobacco smoking status NYIS Unknown if ever smoked [facility] Start: 2000 Sex Assigned At Female [facility] Start: 05-04-2015 End: 04-12-2022 Tobacco smoking status NHIS Never smoked tobacco [facility] Start: 05-04-2015 End: 04-12-2022 Tobacco use and exposure Smokeless tobacco non-user [facility] Start: 2000 Sex assigned at Not on file [facility] Start: 02-14-2024 End: 05-14-2024 Gender identity Not on file [facility] Start: 05-04-2015 National Score (1-100), lower number is lower risk 61 [facility] Start: 04-12-2022 End: 10-30-2024 Alcohol intake Ex-drinker (finding) [facility] Start: 04-12-2022 History SDOH Alcohol Frequency 1 [facility] Start: 04-12-2022 History SDOH Alcohol Std Drinks 0 [facility] Start: 04-12-2022 History SDOH Social Connections Phone 98 [facility] Start: 04-12-2022 History SDOH Social Connections Living 3 [facility] Start: 04-12-2022 History SDOH IPV Fear 2 [facility] Start: 04-12-2022 End: 03-25-2024 Education 13 [facility] Start: 04-02-2022 End: 04-12-2022 Exposure to SARS-CoV-2 (event) Not sure [facility] Start: 02-18-2024 [facility] Start: 03-25-2024 Gender identity Identifies as female gender (finding) [facility] Start: 03-25-2024 Sexual orientation Heterosexual (reba beauchamp) [facility] NEGATED: Highlighted rowStart: KATIE History of tobacco use Passive smoker [facility] Clinical Notes 10-21-2021 to 11-05-2024 Quick Notes - Carey Frost APRN.[facility] - 11/05/2024 10:50 AM EDTPrenatal Quick Notes - Carey Frost APRN.[facility] - 11/05/2024 10:50 AM EDTPatient InstructionsPatient Instructions Note Date & Type Note Facility 11-05-2024 Progress note Formatting of t his note is different from the original. GE-S: Kiera Arvizu is a 24 year old female who presents at 39w2d with EDI: 11/10/2024, by Last Menstrual Period for a routine visit. Denies headache, visual changes, chest pain, shortness of breath, vaginal bleeding, leakage of fluid, or dysuria. Feeling well, no complaints. Blood pressures all normal at home, no signs of preeclampsia. O: See flow sheet Gen: No apparent distress Abd: Gravid, nontender ASSESSMENT/PLAN: 1. Supervision of high risk in third trimester -Continue PNV and ASA 2. 28 weeks gestation of 3. History of delivery, currently -Delivery at 29 weeks due to preeclampsia 4. History of pre-eclampsia -Delivery at 29 weeks due to preeclampsia -No signs at this time, BP stable. Discussed the long goes the increased risk of developing. Reviewed S&S and when to call. 5. History of section -LTCS at 29 weeks.Desires TOLAC 6. Desires (vaginal after ) trial -LTCS at 29 weeks.Desires TOLAC -Consent signed -If does not go into spontaneous labor desires IOL at [facility] at 41 weeks -Sign H&P and schedule at next visit PTL precautions reviewed and when to call RTO in 2 weeks Carey Frost APRN.CNM [facility] 11-05-2024 Miscellaneous Notes GE-S: Kiera Arvizu is a 24 year old female who presents at 39w2d with EDI: 11/10/2024, by Last Menstrual Period for a routine visit. Denies headache, visual changes, chest pain, shortness of breath, vaginal bleeding, leakage of fluid, or dysuria. Feeling well, no complaints. Blood pressures all normal at home, no signs of preeclampsia. O: See flow sheet Gen: No apparent distress Abd: Gravid, nontender ASSESSMENT/PLAN: 1. Supervision of high risk in third trimester -Continue PNV and ASA 2. 28 weeks gestation of 3. History of delivery, currently -Delivery at 29 weeks due to preeclampsia 4. History of pre-eclampsia -Delivery at 29 weeks due to preeclampsia -No signs at this time, BP stable. Discussed the long goes the increased risk of developing. Reviewed S&S and when to call. 5. History of section -LTCS at 29 weeks.Desires TOLAC 6. Desires (vaginal after ) trial -LTCS at 29 weeks.Desires TOLAC -Consent signed -If does not go into spontaneous labor desires IOL at [facility] at 41 weeks -Sign H&P and schedule at next visit PTL precautions reviewed and when to call RTO in 2 weeks Carey Frost APRN.CNM documented in this encounter [facility] 11-05-2024 Instructions Kayla Walker MA - 11/05/2024 10:18 AM EDT SEQUENTIAL SCREENINGS The [facility] offers sequential screenings for women who are interested in screenings for chromosomal abnormalities and certain defects during a . The sequential screen combines ultrasound and blood tests to determine the risk of chromosomal abnormalities, including Down's Syndrome (Trisomy 21) and Trisomy 18, as well as open neural tube defects including spina bifida. Ultrasound examination is performed between 11 weeks and 13 weeks gestational age. Blood tests are drawn after the ultrasound and again later in the between 15 and 21 weeks gestational age. Please let your physician know if you are interested in this testing. It will require an appointment with our medical coding technician. This is not an ultrasound performed by a physician in our office during a routine visit. SIGNS AND SYMPTOMS OF LABOR 1. Contractions every 10 minutes or more often 2. Clear, pink, or brownish fluid (water) leaking from vagina 3. Feeling that baby is pushing down, pressure 4. Low, dull backache 5. Cramps that feel like a period 6. Cramps with or without diarrhea If you notice any of the above symptoms, contact our office at [phone] and ask to speak with a nurse. After hours, you can call doctors registry at [phone] OR call [facility] at [phone] and ask to have the doctor prevention coordinator paged. If you consider this an emergency, dial 0-4-2 or go to your nearest emergency department. NEED HELP? Are you dealing with a violent or abusive relationship? Are you a victim of rape or sexual assult? Call [facility] ([place]) 24 hour Crisis Hotline: 183.367.6111 or 308-282-2193. MANUAL Your Guide to a Healthy manual is now on-line. Visit [email or web address] Joe to download your free copy documented in this encounter [facility] 10-30-2024 Note HNO ID: [id number] Author: BIBIANA LEIGH MA Service: ? Author Type: Chef Saucier Type: Progress Notes Filed: 10/30/2024 09:28 Note Text: POPULATION HEALTH NAVIGATION OUTREACH Action/FYI Called and spoke with pt and confirmed deputy coroner investigator. Reason for Outreach Medicaid OB/Peds Care Gaps due: N/A Patient Contacted: Spoke to patient/parent/or legal guardian Patient identified by name and : Yes Medicaid OB/Peds actions taken: /Hall Cleaner added Navigation Signature: Bibiana Jay MA October 30, 2024 9:26 AM [facility] 10-28-2024 Note HNO ID: [id number] Author: BIBIANA LEIGH MA Service: ? Author Type: Chef Saucier Type: Progress Notes Filed: 10/28/2024 14:01 Note Text: POPULATION HEALTH NAVIGATION OUTREACH Action/ attempt: Called and left message to call back to discuss deputy coroner investigator. MC message sent. Reason for Outreach Medicaid OB/Peds Care Gaps due: N/A Patient Contacted: Unable or unnecessary to reach patient: Unable to reach patient Left message Krishidhan Seedshart message sent Navigation Signature: Bibiana Jay MA October 28, 2024 12:49 PM [facility] 10-28-2024 History of Present illness Narrative POPULATION HEALTH NAVIGATION OUTREACH Action/ attempt: Called and left message to call back to discuss deputy coroner investigator. MC message sent. Reason for Outreach Medicaid OB/Peds Care Gaps due: N/A Patient Contacted: Unable or unnecessary to reach patient: Unable to reach patient Left message Krishidhan Seedshart message sent Navigation Signature: Bibiana Jay MA October 28, 2024 12:49 PM documented in this encounter [facility] 10-28-2024 Note Patient Outreach (NE TNAV) KIERA ARVIZU ([id number]) 1 F Date Time Provider Department 10/28/24 BIBIANA LEIGH During your visit today, we recorded the following information about you: Bibiana Leigh MA 10/28/2024 2:01 PM Signed POPULATION HEALTH NAVIGATION OUTREACH Action/FYI 1st attempt: Called and left message to call back to discuss deputy coroner investigator. MC message sent. 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 Reason for Outreach Medicaid OB/Peds Care Gaps due: N/A Patient Contacted: Spoke to patient/parent/or legal guardian Patient identified by name and : Yes Medicaid OB/Peds actions taken: /Hall Cleaner added Navigation Signature: Bibiana Jay MA October 30, 2024 9:26 AM Allergies As of Date: 10/28/2024 (No Known Allergies) Date Reviewed: 10/23/2024 Reviewed by: Devorah García LPN - Fully Assessed Reason for Visit: [facility] Navigation Outreach [3910] Cmt: Ob/peds Prescriptions as of 10/30/2024 - acetaminophen (TYLENOL ORAL) Take 500 mg by mouth as needed. - ferrous sulfate (IRON) 325 mg (65 mg iron) tablet Take 325 mg by mouth once daily. - aspirin, enteric coated (ECOTRIN LOW STRENGTH) 81 mg EC tablet Take 1 tablet by mouth once daily. - 25/iron/folate 6/dha (PRENA1 ORAL) Take 1 tablet by mouth once daily. Problem List As Of Date 10/28/2024 Noted Resolved Chalazion of right upper eyelid [H00.11] 05/04/2015 05/14/2024 Meibomian gland dysfunction (MGD), bilateral, b*05/04/2015 05/14/2024 Vitreous floaters of both eyes [H43.393] 05/04/2015 05/14/2024 History of section [Z98.891] 03/28/2024 Supervision of high risk in third tri*03/28/2024 History of pre-eclampsia [Z87.59] 03/28/2024 History of delivery, currently *03/28/2024 Constipation during in first trimeste*03/28/2024 05/14/2024 Heartburn during in first trimester [*03/28/2024 05/14/2024 Atypical squamous cells of undetermined signifi*04/03/2024 Desires (vaginal after ) tri*08/21/2024 Anemia complicating , third trimester *08/21/2024 Encounter Status:Closed by BIBIANA LEIGH on 10/28/24 [facility] 10-23-2024 Progress note Formatting of t his note might be different from the original. S: Kiera Arvizu is a 24 year old female who presents at 37 weeks gestation for a routine visit. Positive movements. Denies any cramps or contractions. Denies headache, visual changes, chest pain, shortness of breath, vaginal bleeding, leakage of fluid, or dysuria. Feeling well, no complaints. O: See flow sheet Gen: No apparent distress Abd: Gravid, nontender ASSESSMENT/PLAN: 1. 37 weeks gestation of 2. Supervision of high risk in third trimester 3. History of section - R/B/A to TOLAC reviewed and questions answered. Aware if needs induction of labor will need to go to tertiary care center - Would like induction if does not go into spontaneous labor by 40-41 weeks gestation - consent signed - GBS negative - Educated on CE and membrane sweeping - Labor precautions and timing of contractions reviewed - RTO 1 week or sooner if needed Daija Roblero APRN.CNM [facility] Work Phone: 10-23-2024 Miscellaneous Notes S: Kiera Arvizu is a 24 year old female who presents at 37 weeks gestation for a routine visit. Positive movements. Denies any cramps or contractions. Denies headache, visual changes, chest pain, shortness of breath, vaginal bleeding, leakage of fluid, or dysuria. Feeling well, no complaints. O: See flow sheet Gen: No apparent distress Abd: Gravid, nontender ASSESSMENT/PLAN: 1. 37 weeks gestation of 2. Supervision of high risk in third trimester 3. History of section - R/B/A to TOLAC reviewed and questions answered. Aware if needs induction of labor will need to go to tertiary care center - Would like induction if does not go into spontaneous labor by 40-41 weeks gestation - consent signed - GBS negative - Educated on CE and membrane sweeping - Labor precautions and timing of contractions reviewed - RTO 1 week or sooner if needed Daija Roblero APRN.CNM documented in this encounter [facility] 10-23-2024 Instructions Devorah García LPN - 10/23/2024 10:43 AM EDT SEQUENTIAL SCREENINGS The [facility] offers sequential screenings for women who are interested in screenings for chromosomal abnormalities and certain defects during a . The sequential screen combines ultrasound and blood tests to determine the risk of chromosomal abnormalities, including Down's Syndrome (Trisomy 21) and Trisomy 18, as well as open neural tube defects including spina bifida. Ultrasound examination is performed between 11 weeks and 13 weeks gestational age. Blood tests are drawn after the ultrasound and again later in the between 15 and 21 weeks gestational age. Please let your physician know if you are interested in this testing. It will require an appointment with our medical coding technician. This is not an ultrasound performed by a physician in our office during a routine visit. SIGNS AND SYMPTOMS OF LABOR 1. Contractions every 10 minutes or more often 2. Clear, pink, or brownish fluid (water) leaking from vagina 3. Feeling that baby is pushing down, pressure 4. Low, dull backache 5. Cramps that feel like a period 6. Cramps with or without diarrhea If you notice any of the above symptoms, contact our office at [phone] and ask to speak with a nurse. After hours, you can call doctors registry at [phone] OR call [facility] at [phone] and ask to have the doctor prevention coordinator paged. If you consider this an emergency, dial or go to your nearest emergency department. NEED HELP? Are you dealing with a violent or abusive relationship? Are you a victim of rape or sexual assult? Call [facility] ([place]) 24 hour Crisis Hotline: 725.879.7166 or 630-789-1986. MANUAL Your Guide to a Healthy manual is now on-line. Visit [email or web address] Diaz to download your free copy documented in this encounter [facility] 10-15-2024 Progress note Formatting of t his note might be different from the original. KJ - S: Kiera denies LOF, contractions or vaginal bleeding. O: 36w2d, see flow sheet SENSITIVE EXAM: The sensitive examination was discussed with the Patient or Patient's Authorized Patient Navigator. As applicable, any other physician, advance practice provider, medical student, or other health professional student that will be observing or involved in the sensitive examination for educational or training purposes was discussed with the Patient or Authorized Patient Navigator. The Patient or Authorized Patient Navigator has agreed to proceed with the sensitive examination. (Sensitive examination includes inspection and/or palpation of the breasts, pelvis, prostate and anorectal regions). A/P: Assessment & Plan Supervision of high risk in third trimester ([facility]) Orders: URINE OB DIP B/O ROUTINE, GROUP B STREPTOCOCCUS BY PCR Desires (vaginal after ) trial ([facility]) Patient requests IOL at [facility] if no spontaneous labor by EDC. Orders: URINE OB DIP B/O History of section Orders: URINE OB DIP B/O History of delivery, currently ([facility]) Orders: URINE OB DIP B/O Anemia complicating , third trimester ([facility]) Continue iron & PNV Orders: URINE OB DIP B/O 36 weeks gestation of ([facility]) GBS today Orders: URINE OB DIP B/O Growth US today shows AGA with AC at 96% Reviewed PTL & FM precautions Kamar Valdovinos MD [facility] 10-15-2024 Miscellaneous Notes KJ - S: Kiera denies LOF, contractions or vaginal bleeding. O: 36w2d, see flow sheet SENSITIVE EXAM: The sensitive examination was discussed with the Patient or Patient's Authorized Patient Navigator. As applicable, any other physician, advance practice provider, medical student, or other health professional student that will be observing or involved in the sensitive examination for educational or training purposes was discussed with the Patient or Authorized Patient Navigator. The Patient or Authorized Patient Navigator has agreed to proceed with the sensitive examination. (Sensitive examination includes inspection and/or palpation of the breasts, pelvis, prostate and anorectal regions). A/P: Assessment & Plan Supervision of high risk in third trimester ([facility]) Orders: URINE OB DIP B/O ROUTINE, GROUP B STREPTOCOCCUS BY PCR Desires (vaginal after ) trial ([facility]) Patient requests IOL at [facility] if no spontaneous labor by EDC. Orders: URINE OB DIP B/O History of section Orders: URINE OB DIP B/O History of delivery, currently ([facility]) Orders: URINE OB DIP B/O Anemia complicating , third trimester ([facility]) Continue iron & PNV Orders: URINE OB DIP B/O 36 weeks gestation of ([facility]) GBS today Orders: URINE OB DIP B/O Growth US today shows AGA infant with AC at 96% Reviewed PTL & FM precautions Kamar Valdovinos MD documented in this encounter [facility] 10-15-2024 Note Indication Evaluation of growth. History of preeclampsia Impression REMOTE READ - Single, live, intrauterine . - presentation is cephalic. - The biometry is consistent with the assigned gestational dating. - The EFW is 3113 g, at the 73%. AC is at the 96%. - Amniotic fluid volume is normal amount with an MVP of 7.9 cm and MONIKA of 21.2 cm. - The placenta is right lateral, fundal. - No malformations visualized on a limited survey as detailed below. Recommendations Additional follow-up as clinically indicated. Maternal Assessment Height 165 cm Height (ft) 5 ft Height (in) 5 in Physical Exam Initial weight (lb) 134 lb Initial BMI 22.30 kg/m Method Transabdominal ultrasound examination Lui . Number of fetuses: 1 Dating LMP on: 02/04/2024 GA by LMP 36 w + 2 d EDI by LMP: 11/10/2024 GA by prior assessment 36 w + 2 d EDI by prior assessment: 11/10/2024 Ultrasound examination on: 10/15/2024 GA by U/S based upon: AC, BPD, Femur, HC GA by U/S 36 w + 3 d EDI by U/S: 11/09/2024 Assigned: based on stated EDI, selected on 05/14/2024 Assigned GA 36 w + 2 d Assigned EDI: 11/10/2024 General Evaluation Cardiac activity present. FHR 151 bpm. movements: present. Presentation: cephalic Placenta: Placental site: right lateral, fundal Umbilical cord: Cord vessels: 3 vessel cord. Insertion site: normal insertion Amniotic fluid: Amount of AF: normal amount. MVP 7.9 cm. MONIKA 21.2 cm. Q1 2.1 cm, Q2 7.9 cm, Q3 5.7 cm, Q4 5.5 cm Growth Overview Exam date GA BPD (mm) HC (mm) AC (mm) FL (mm) HL (mm) EFW (g) 05/14/2024 14w 2d 29.1 85% 113.9 74% 93.8 90% 15.4 59% 06/24/2024 20w 1d 49.8 84% 185.6 73% 171.3 94% 35.5 92% 32.4 79% 434 98% 09/18/2024 32w 3d 87.4 98% 304.1 60% 309.5 97% 61.9 51% 2293 82% 10/15/2024 36w 2d 90.7 73% 322.8 40% 343.8 96% 68.8 53% 3113 73% Biometry Standard BPD 90.7 mm 36w 5d 73% Hadlock OFD 111.6 mm 33w 6d 30% Nicolaides HC 322.8 mm 35w 4d 40% Tom AC 343.8 mm 38w 2d 96% Hadlock Femur 68.8 mm 35w 0d 53% Tom EFW 3,113 g 37w 3d 73% Hadlock EFW (lb) 6 lb EFW (oz) 14 oz EFW by: Hadlock (HC-AC-FL) Extended Solar Project Engineer 2.5 mm Extremities / Bony Struc FL / HC 0.21 Other Structures FHR 151 bpm Anatomy Lateral ventricles: normal Cavum septi pellucidi: normal Cerebellum: normal Cisterna magna: normal 4-chamber view: normal RVOT view: normal LVOT view: normal 3-vessel view: normal Heart / Thorax Situs: situs solitus (normal) Diaphragm: normal Stomach: normal Kidneys: normal Bladder: normal sex: female Wants to know sex: yes Performed By: Lizzie Mccartney RDMS Read By: Barb Greenwood M.D. [facility] 10-15-2024 Instructions Brenda Anand MA - 10/15/2024 9:37 AM EDT SEQUENTIAL SCREENINGS The [facility] offers sequential screenings for women who are interested in screenings for chromosomal abnormalities and certain defects during a . The sequential screen combines ultrasound and blood tests to determine the risk of chromosomal abnormalities, including Down's Syndrome (Trisomy 21) and Trisomy 18, as well as open neural tube defects including spina bifida. Ultrasound examination is performed between 11 weeks and 13 weeks gestational age. Blood tests are drawn after the ultrasound and again later in the between 15 and 21 weeks gestational age. Please let your physician know if you are interested in this testing. It will require an appointment with our medical coding technician. This is not an ultrasound performed by a physician in our office during a routine visit. SIGNS AND SYMPTOMS OF LABOR 1. Contractions every 10 minutes or more often 2. Clear, pink, or brownish fluid (water) leaking from vagina 3. Feeling that baby is pushing down, pressure 4. Low, dull backache 5. Cramps that feel like a period 6. Cramps with or without diarrhea If you notice any of the above symptoms, contact our office at [phone] and ask to speak with a nurse. After hours, you can call doctors registry at [phone] OR call [facility] at [phone] and ask to have the doctor prevention coordinator paged. If you consider this an emergency, dial 9-1-1 or go to your nearest emergency department. NEED HELP? Are you dealing with a violent or abusive relationship? Are you a victim of rape or sexual assult? Call [facility] ([place]) 24 hour Crisis Hotline: 617.892.7148 or 282-331-9967. MANUAL Your Guide to a Healthy manual is now on-line. Visit [email or web address] to download your free copy documented in this encounter [facility] 10-02-2024 Progress note Formatting of t his note might be different from the original. EH - S: Kiera is a 24 year old female who presents at 34w3d for a routine visit. Feeling movement. Denies headache, visual changes, chest pain, shortness of breath, vaginal bleeding, leakage of fluid, or dysuria. Feeling well, no complaints. O: See flow sheet Gen: No apparent distress Abd: Gravid, nontender, S=D, 34 lb TWG ASSESSMENT/PLAN: 1. Supervision of high risk in third trimester ([facility]) - ICD9: V23.9, ICD10: O09.93 (primary diagnosis) - Continue PNV and LDA 2. 34 weeks gestation of ([facility]) - ICD9: V22.2, ICD10: Z3A.34 - GBS next visit 3. History of section - ICD9: V45.89, ICD10: Z98.891 4. Desires (vaginal after ) trial ([facility]) - ICD9: 654.20, ICD10: O34.219 5. History of delivery, currently ([facility]) - ICD9: V23.89, ICD10: O09.899 - Delivered at 29 weeks due to pre e - Growth at 32 weeks appropriate, repeat next visit 6. History of pre-eclampsia - ICD9: V13.29, ICD10: Z87.59 7. Anemia complicating , third trimester ([facility]) - ICD9: 648.23, 285.9, ICD10: O99.013 - Continue oral iron - Repeat CBC today PTL precautions and kick counts reviewed. RTO in 2 weeks or sooner as needed. Mik Mendoza APRN.BOX TRUCK DRIVER [facility] 10-02-2024 Miscellaneous Notes EH - S: Kiera is a 24 year old female who presents at 34w3d for a routine visit. Feeling movement. Denies headache, visual changes, chest pain, shortness of breath, vaginal bleeding, leakage of fluid, or dysuria. Feeling well, no complaints. O: See flow sheet Gen: No apparent distress Abd: Gravid, nontender, S=D, 34 lb TWG ASSESSMENT/PLAN: 1. Supervision of high risk in third trimester ([facility]) - ICD9: V23.9, ICD10: O09.93 (primary diagnosis) - Continue PNV and LDA 2. 34 weeks gestation of ([facility]) - ICD9: V22.2, ICD10: Z3A.34 - GBS next visit 3. History of section - ICD9: V45.89, ICD10: Z98.891 4. Desires (vaginal after ) trial ([facility]) - ICD9: 654.20, ICD10: O34.219 5. History of delivery, currently ([facility]) - ICD9: V23.89, ICD10: O09.899 - Delivered at 29 weeks due to pre e - Growth at 32 weeks appropriate, repeat next visit 6. History of pre-eclampsia - ICD9: V13.29, ICD10: Z87.59 7. Anemia complicating , third trimester ([facility]) - ICD9: 648.23, 285.9, ICD10: O99.013 - Continue oral iron - Repeat CBC today PTL precautions and kick counts reviewed. RTO in 2 weeks or sooner as needed. Mik Mendoza APRN.BOX TRUCK DRIVER documented in this encounter [facility] 10-02-2024 Instructions Kayla Walker MA - 10/02/2024 8:30 AM EDT SEQUENTIAL SCREENINGS The [facility] offers sequential screenings for women who are interested in screenings for chromosomal abnormalities and certain defects during a . The sequential screen combines ultrasound and blood tests to determine the risk of chromosomal abnormalities, including Down's Syndrome (Trisomy 21) and Trisomy 18, as well as open neural tube defects including spina bifida. Ultrasound examination is performed between 11 weeks and 13 weeks gestational age. Blood tests are drawn after the ultrasound and again later in the between 15 and 21 weeks gestational age. Please let your physician know if you are interested in this testing. It will require an appointment with our medical coding technician. This is not an ultrasound performed by a physician in our office during a routine visit. SIGNS AND SYMPTOMS OF LABOR 1. Contractions every 10 minutes or more often 2. Clear, pink, or brownish fluid (water) leaking from vagina 3. Feeling that baby is pushing down, pressure 4. Low, dull backache 5. Cramps that feel like a period 6. Cramps with or without diarrhea If you notice any of the above symptoms, contact our office at [phone] and ask to speak with a nurse. After hours, you can call doctors registry at [phone] OR call [facility] at [phone] and ask to have the doctor prevention coordinator paged. If you consider this an emergency, dial 1--7 or go to your nearest emergency department. NEED HELP? Are you dealing with a violent or abusive relationship? Are you a victim of rape or sexual assult? Call [facility] ([place]) 24 hour Crisis Hotline: 114.874.1543 or 102-134-6415. MANUAL Your Guide to a Healthy manual is now on-line. Visit [email or web address] to download your free copy documented in this encounter [facility] 09-19-2024 Note Indication Evaluation of growth History of preeclampsia Impression - Single, live, intrauterine . - presentation is cephalic. - The biometry is consistent with the assigned gestational dating. - The EFW is 2293 g, at the 82%. AC is at the 97%. - Amniotic fluid volume is normal amount with an MVP of 5.4 cm and MONIKA of 17 cm. - The placenta is posterior, fundal. - No malformations visualized on a limited survey as detailed below. Recommendations Additional follow-up as clinically indicated. Maternal Assessment Height 165 cm Height (ft) 5 ft Height (in) 5 in Physical Exam Initial weight (lb) 134 lb Initial BMI 22.30 kg/m Maternal assessment other: 2 Para 1 REMOTE READ Method Transabdominal ultrasound examination Lui . Number of fetuses: 1 Dating LMP on: 02/04/2024 GA by LMP 32 w + 3 d EDI by LMP: 11/10/2024 GA by prior assessment 32 w + 3 d EDI by prior assessment: 11/10/2024 Ultrasound examination on: 09/18/2024 GA by U/S based upon: AC, BPD, Femur, HC GA by U/S 33 w + 5 d EDI by U/S: 11/01/2024 Assigned: based on stated EDI, selected on 05/14/2024 Assigned GA 32 w + 3 d Assigned EDI: 11/10/2024 General Evaluation Cardiac activity present. FHR 136 bpm. movements: present. Presentation: cephalic Placenta: Placental site: posterior, fundal Umbilical cord: Cord vessels: 3 vessel cord Amniotic fluid: Amount of AF: normal amount. MVP 5.4 cm. MONIKA 17.0 cm. Q1 2.1 cm, Q2 5.4 cm, Q3 4.8 cm, Q4 4.8 cm Growth Overview Exam date GA BPD (mm) HC (mm) AC (mm) FL (mm) HL (mm) EFW (g) 05/14/2024 14w 2d 29.1 85% 113.9 74% 93.8 90% 15.4 59% 06/24/2024 20w 1d 49.8 84% 185.6 73% 171.3 94% 35.5 92% 32.4 79% 434 98% 09/18/2024 32w 3d 87.4 98% 304.1 60% 309.5 97% 61.9 51% 2293 82% Biometry Standard BPD 87.4 mm 35w 2d 98% Hadlock OFD 104.2 mm 30w 5d 28% Nicolaides HC 304.1 mm 32w 6d 60% Tom AC 309.5 mm 34w 6d 97% Hadlock Femur 61.9 mm 32w 0d 51% Tom EFW 2,293 g 33w 4d 82% Hadlock EFW (lb) 5 lb EFW (oz) 1 oz EFW by: Hadlock (HC-AC-FL) Extremities / Bony Struc FL / HC 0.20 Other Structures FHR 136 bpm Anatomy Lateral ventricles: normal Cavum septi pellucidi: normal Cerebellum: normal Cisterna magna: normal 4-chamber view: normal RVOT view: normal LVOT view: normal 3-vessel view: normal Heart / Thorax Situs: situs solitus (normal) Diaphragm: normal Stomach: normal Kidneys: normal Bladder: normal sex: female Wants to know sex: yes Performed By: Lyric Silva RDMS, RVT Read By: Barb Greenwood M.D. [facility] 09-18-2024 Progress note Formatting of t his note might be different from the original. S: Kiera Arvizu is a 24 year old female who presents at 11/10/2024, by Last Menstrual Period for a routine visit. Denies headache, visual changes, chest pain, shortness of breath, vaginal bleeding, leakage of fluid, or dysuria. Feeling well, no complaints. Good movement, No contractions O: See flow sheet Gen: No apparent distress Abd: Gravid, nontender EFW 82% MONIKA 17 ASSESSMENT/PLAN: 1. Supervision of high risk in third trimester ([facility]) - ICD9: V23.9, ICD10: O09.93 (primary diagnosis) 2. History of delivery, currently ([facility]) - ICD9: V23.89, ICD10: O09.899 3. History of pre-eclampsia - ICD9: V13.29, ICD10: Z87.59 Normal BP 4. History of section - ICD9: V45.89, ICD10: Z98.891 Desires TOLAC 5. Desires (vaginal after ) trial ([facility]) - ICD9: 654.20, ICD10: O34.219 6. 32 weeks gestation of ([facility]) - ICD9: V22.2, ICD10: Z3A.32 Katherine Brunner MD [facility] 09-18-2024 Miscellaneous Notes S: Kiera Arvizu is a 24 year old female who presents at 11/10/2024, by Last Menstrual Period for a routine visit. Denies headache, visual changes, chest pain, shortness of breath, vaginal bleeding, leakage of fluid, or dysuria. Feeling well, no complaints. Good movement, No contractions O: See flow sheet Gen: No apparent distress Abd: Gravid, nontender EFW 82% MONIKA 17 ASSESSMENT/PLAN: 1. Supervision of high risk in third trimester ([facility]) - ICD9: V23.9, ICD10: O09.93 (primary diagnosis) 2. History of delivery, currently ([facility]) - ICD9: V23.89, ICD10: O09.899 3. History of pre-eclampsia - ICD9: V13.29, ICD10: Z87.59 Normal BP 4. History of section - ICD9: V45.89, ICD10: Z98.891 Desires TOLAC 5. Desires (vaginal after ) trial ([facility]) - ICD9: 654.20, ICD10: O34.219 6. 32 weeks gestation of ([facility]) - ICD9: V22.2, ICD10: Z3A.32 Katherine Brunner MD documented in this encounter [facility] 09-18-2024 Instructions Brenda Anand MA - 09/18/2024 2:14 PM EDT SEQUENTIAL SCREENINGS The [facility] offers sequential screenings for women who are interested in screenings for chromosomal abnormalities and certain defects during a . The sequential screen combines ultrasound and blood tests to determine the risk of chromosomal abnormalities, including Down's Syndrome (Trisomy 21) and Trisomy 18, as well as open neural tube defects including spina bifida. Ultrasound examination is performed between 11 weeks and 13 weeks gestational age. Blood tests are drawn after the ultrasound and again later in the between 15 and 21 weeks gestational age. Please let your physician know if you are interested in this testing. It will require an appointment with our medical coding technician. This is not an ultrasound performed by a physician in our office during a routine visit. SIGNS AND SYMPTOMS OF LABOR 1. Contractions every 10 minutes or more often 2. Clear, pink, or brownish fluid (water) leaking from vagina 3. Feeling that baby is pushing down, pressure 4. Low, dull backache 5. Cramps that feel like a period 6. Cramps with or without diarrhea If you notice any of the above symptoms, contact our office at [phone] and ask to speak with a nurse. After hours, you can call doctors registry at [phone] OR call [facility] at [phone] and ask to have the doctor prevention coordinator paged. If you consider this an emergency, dial 91-7 or go to your nearest emergency department. NEED HELP? Are you dealing with a violent or abusive relationship? Are you a victim of rape or sexual assult? Call [facility] ([place]) 24 hour Crisis Hotline: 562.347.8470 or 137-356-1410. MANUAL Your Guide to a Healthy manual is now on-line. Visit [email or web address] to download your free copy documented in this encounter [facility] 09-04-2024 Progress note Formatting of t his note might be different from the original. S: Kiera Arvizu is a 24 year old female who presents at 30 weeks gestation for a routine visit. Positive movements. Denies headache, visual changes, chest pain, shortness of breath, vaginal bleeding, leakage of fluid, or dysuria. Feeling well, no complaints. O: See flow sheet Gen: No apparent distress Abd: Gravid, non tender S=D ASSESSMENT/PLAN: 1. Supervision of high risk in third trimester 2. History of delivery, currently 3. History of pre-eclampsia 4. History of section 5. Desires (vaginal after ) trial 6. 30 weeks gestation of 7. Anemia in - Continue oral iron - Repeat CBC next visit - Growth US starting at 32 weeks - Continue vitamin and ASA - MOD- desires TOLAC - Preeclampsia precautions reviewed and when to call office - PTL precautions and kick counts reviewed - RTO 2 weeks or sooner if needed Daija Roblero APRN.CNM [facility] 09-04-2024 Miscellaneous Notes S: Kiera Arvizu is a 24 year old female who presents at 30 weeks gestation for a routine visit. Positive movements. Denies headache, visual changes, chest pain, shortness of breath, vaginal bleeding, leakage of fluid, or dysuria. Feeling well, no complaints. O: See flow sheet Gen: No apparent distress Abd: Gravid, non tender S=D ASSESSMENT/PLAN: 1. Supervision of high risk in third trimester 2. History of delivery, currently 3. History of pre-eclampsia 4. History of section 5. Desires (vaginal after ) trial 6. 30 weeks gestation of 7. Anemia in - Continue oral iron - Repeat CBC next visit - Growth US starting at 32 weeks - Continue vitamin and ASA - MOD- desires TOLAC - Preeclampsia precautions reviewed and when to call office - PTL precautions and kick counts reviewed - RTO 2 weeks or sooner if needed Daija Roblero APRN.CNM documented in this encounter [facility] 09-04-2024 Instructions Manny Carney MA - 09/04/2024 9:34 AM EDT SEQUENTIAL SCREENINGS The [facility] offers sequential screenings for women who are interested in screenings for chromosomal abnormalities and certain defects during a . The sequential screen combines ultrasound and blood tests to determine the risk of chromosomal abnormalities, including Down's Syndrome (Trisomy 21) and Trisomy 18, as well as open neural tube defects including spina bifida. Ultrasound examination is performed between 11 weeks and 13 weeks gestational age. Blood tests are drawn after the ultrasound and again later in the between 15 and 21 weeks gestational age. Please let your physician know if you are interested in this testing. It will require an appointment with our medical coding technician. This is not an ultrasound performed by a physician in our office during a routine visit. SIGNS AND SYMPTOMS OF LABOR 1. Contractions every 10 minutes or more often 2. Clear, pink, or brownish fluid (water) leaking from vagina 3. Feeling that baby is pushing down, pressure 4. Low, dull backache 5. Cramps that feel like a period 6. Cramps with or without diarrhea If you notice any of the above symptoms, contact our office at [phone] and ask to speak with a nurse. After hours, you can call doctors registry at [phone] OR call [facility] at [phone] and ask to have the doctor prevention coordinator paged. If you consider this an emergency, dial 11-25- or go to your nearest emergency department. NEED HELP? Are you dealing with a violent or abusive relationship? Are you a victim of rape or sexual assult? Call [facility] ([place]) 24 hour Crisis Hotline: 604.471.1097 or 715-083-0935. MANUAL Your Guide to a Healthy manual is now on-line. Visit [email or web address] to download your free copy documented in this encounter [facility] 08-29-2024 Telephone encounter Note Message sent to Monica Lopez to ask if patient can be authorized, [facility] 08-29-2024 Miscellaneous Notes Message sent to Monica Lopez to ask if patient can be authorized, Received request to assist patient in scheduling growth US at 32 weeks. Order placed. Patient needs financial clearance. I have placed a hold time for 09/18 at 2:30 for patient. Please schedule once approved. documented in this encounter [facility] 08-21-2024 Telephone encounter Note Received request to assist patient in scheduling growth US at 32 weeks. Order placed. Patient needs financial clearance. I have placed a hold time for 09/18 at 2:30 for patient. Please schedule once approved. [facility] 08-21-2024 Progress note Formatting of t his note might be different from the original. GE-S: Kiera Arvizu is a 24 year old female who presents at 28w3d with EDI: 11/10/2024, by Last Menstrual Period for a routine visit. Denies headache, visual changes, chest pain, shortness of breath, vaginal bleeding, leakage of fluid, or dysuria. Feeling well, no complaints. Blood pressures all normal at home, no signs of preeclampsia. O: See flow sheet Gen: No apparent distress Abd: Gravid, nontender ASSESSMENT/PLAN: 1. Supervision of high risk in third trimester - 1 hour GCT, CBC, and RPR today - TDAP declined - LARC form reviewed and signed. Patient declines - Depression screen negative - Opioid screen negative - plan form discussed and given to patient. Patient desires unmedicated with TOLAC 2. 28 weeks gestation of 3. History of delivery, currently -Delivery at 29 weeks due to preeclampsia -Growth US every 4 wk starting at 32 wk per [facility] policy 4. History of pre-eclampsia -Delivery at 29 weeks due to preeclampsia -Growth US every 4 wk starting at 32 wk per [facility] policy 5. History of section -LTCS at 29 weeks.Desires TOLAC 6. Desires (vaginal after ) trial -LTCS at 29 weeks.Desires TOLAC PTL precautions reviewed and when to call RTO in 2 weeks Carey Frost APRN.CNM [facility] 08-21-2024 Miscellaneous Notes GE-S: Kiera Arvizu is a 24 year old female who presents at 28w3d with EDI: 11/10/2024, by Last Menstrual Period for a routine visit. Denies headache, visual changes, chest pain, shortness of breath, vaginal bleeding, leakage of fluid, or dysuria. Feeling well, no complaints. Blood pressures all normal at home, no signs of preeclampsia. O: See flow sheet Gen: No apparent distress Abd: Gravid, nontender ASSESSMENT/PLAN: 1. Supervision of high risk in third trimester - 1 hour GCT, CBC, and RPR today - TDAP declined - LARC form reviewed and signed. Patient declines - Depression screen negative - Opioid screen negative - plan form discussed and given to patient. Patient desires unmedicated with TOLAC 2. 28 weeks gestation of 3. History of delivery, currently -Delivery at 29 weeks due to preeclampsia -Growth US every 4 wk starting at 32 wk per [facility] policy 4. History of pre-eclampsia -Delivery at 29 weeks due to preeclampsia -Growth US every 4 wk starting at 32 wk per [facility] policy 5. History of section -LTCS at 29 weeks.Desires TOLAC 6. Desires (vaginal after ) trial -LTCS at 29 weeks.Desires TOLAC PTL precautions reviewed and when to call RTO in 2 weeks Carey Frost APRN.CNM documented in this encounter [facility] 08-21-2024 Instructions Carey Frost APRN.CNM - 08/21/2024 9:10 AM EDT SEQUENTIAL SCREENINGS The [facility] offers sequential screenings for women who are interested in screenings for chromosomal abnormalities and certain defects during a . The sequential screen combines ultrasound and blood tests to determine the risk of chromosomal abnormalities, including Down's Syndrome (Trisomy 21) and Trisomy 18, as well as open neural tube defects including spina bifida. Ultrasound examination is performed between 11 weeks and 13 weeks gestational age. Blood tests are drawn after the ultrasound and again later in the between 15 and 21 weeks gestational age. Please let your physician know if you are interested in this testing. It will require an appointment with our medical coding technician. This is not an ultrasound performed by a physician in our office during a routine visit. SIGNS AND SYMPTOMS OF LABOR 1. Contractions every 10 minutes or more often 2. Clear, pink, or brownish fluid (water) leaking from vagina 3. Feeling that baby is pushing down, pressure 4. Low, dull backache 5. Cramps that feel like a period 6. Cramps with or without diarrhea If you notice any of the above symptoms, contact our office at [phone] and ask to speak with a nurse. After hours, you can call doctors registry at [phone] OR call [facility] at [phone] and ask to have the doctor prevention coordinator paged. If you consider this an emergency, dial or go to your nearest emergency department. NEED HELP? Are you dealing with a violent or abusive relationship? Are you a victim of rape or sexual assult? Call [facility] ([place]) 24 hour Crisis Hotline: 520.104.3143 or 711-757-6461. MANUAL Your Guide to a Healthy manual is now on-line. Visit [email or web address] to download your free copy COUNTING YOUR BABY'S MOVEMENTS Your Baby's regular movements are a sign of good health. Though babies may sleep for up to an hour, most of the time your baby is active and moving. On average, a healthy baby kicks or moves at least 10 times within a two-hour period. An easy way to check the health of your baby is to keep track of your baby's movements once a day (we call it kick counts). We think it is best to begin kick counts at 28 weeks of and continue once a day until your baby's . Please follow the directions below and record your baby's movements every day. Bring this Kick Count Record with you to all of your visits. How to count and record your baby's movements: Pick a time once a day to record your baby's movements. Your baby may be most active when you are at rest. Many women find after a meal to be the best time to record their baby's movements. Sit in a comfortable position and place your hands, palms down, on your baby. When you are ready to begin counting, look at the time. Jim the start time on the Kick Count Record. Count each time you feel your baby kick, move, roll, flutter, or swish. Continue counting until your baby has moved ten times. Jim the end time on the Kick Count Record. How many minutes did it take your baby to move ten times? Record this number in the box. If you do not count ten movements in two hours or less, call your health care provider right away for further instructions Day Date Day Date Day Start Start Start End End End Minutes to reach 10 kicks Minutes to reach 10 kicks Minutes to reach 10 kicks documented in this encounter [facility] 07-24-2024 Note HNO ID: [id number] Author: MIK MENDOZA APRN.BOX TRUCK DRIVER Service: ? Author Type: Nurse Practitioner Type: Progress Notes Filed: 07/24/2024 09:27 Note Text: EH - S: Kiera is a 24 year old female who presents at 24w3d for a routine visit. Feeling movement. Denies headache, visual changes, chest pain, shortness of breath, vaginal bleeding, leakage of fluid, or dysuria. Feeling well, no complaints. O: See flow sheet Gen: No apparent distress Abd: Gravid, nontender, S=D ASSESSMENT/PLAN: 1. Supervision of high risk in second trimester ([facility]) - ICD9: V23.9, ICD10: O09.92 (primary diagnosis) 2. 24 weeks gestation of ([facility]) - ICD9: V22.2, ICD10: Z3A.24 - GTT, CBC, RPR next visit 3. History of delivery, currently ([facility]) - ICD9: V23.89, ICD10: O09.899 - Due to pre eclampsia 4. History of pre-eclampsia - ICD9: V13.29, ICD10: Z87.59 - Continue LDA 5. History of section - ICD9: V45.89, ICD10: Z98.891 - Wants to - Previously counseled by Dr. Valdovinos PTL precautions reviewed. RTO in 4 weeks or sooner as needed. Mik Mendoza APRN.BOX TRUCK DRIVER [facility] 07-24-2024 History of Present illness Narrative EH - S: Kiera is a 24 year old female who presents at 24w3d for a routine visit. Feeling movement. Denies headache, visual changes, chest pain, shortness of breath, vaginal bleeding, leakage of fluid, or dysuria. Feeling well, no complaints. O: See flow sheet Gen: No apparent distress Abd: Gravid, nontender, S=D ASSESSMENT/PLAN: 1. Supervision of high risk in second trimester ([facility]) - ICD9: V23.9, ICD10: O09.92 (primary diagnosis) 2. 24 weeks gestation of ([facility]) - ICD9: V22.2, ICD10: Z3A.24 - GTT, CBC, RPR next visit 3. History of delivery, currently ([facility]) - ICD9: V23.89, ICD10: O09.899 - Due to pre eclampsia 4. History of pre-eclampsia - ICD9: V13.29, ICD10: Z87.59 - Continue LDA 5. History of section - ICD9: V45.89, ICD10: Z98.891 - Wants to - Previously counseled by Dr. Valdovinos PTL precautions reviewed. RTO in 4 weeks or sooner as needed. Mik Mendoza APRN.BOX TRUCK DRIVER documented in this encounter [facility] 07-24-2024 Instructions Devorah García LPN - 07/24/2024 8:35 AM EDT SEQUENTIAL SCREENINGS The [facility] offers sequential screenings for women who are interested in screenings for chromosomal abnormalities and certain defects during a . The sequential screen combines ultrasound and blood tests to determine the risk of chromosomal abnormalities, including Down's Syndrome (Trisomy 21) and Trisomy 18, as well as open neural tube defects including spina bifida. Ultrasound examination is performed between 11 weeks and 13 weeks gestational age. Blood tests are drawn after the ultrasound and again later in the between 15 and 21 weeks gestational age. Please let your physician know if you are interested in this testing. It will require an appointment with our medical coding technician. This is not an ultrasound performed by a physician in our office during a routine visit. SIGNS AND SYMPTOMS OF LABOR 1. Contractions every 10 minutes or more often 2. Clear, pink, or brownish fluid (water) leaking from vagina 3. Feeling that baby is pushing down, pressure 4. Low, dull backache 5. Cramps that feel like a period 6. Cramps with or without diarrhea If you notice any of the above symptoms, contact our office at [phone] and ask to speak with a nurse. After hours, you can call doctors registry at [phone] OR call [facility] at [phone] and ask to have the doctor prevention coordinator paged. If you consider this an emergency, dial 9-1-4 or go to your nearest emergency department. NEED HELP? Are you dealing with a violent or abusive relationship? Are you a victim of rape or sexual assult? Call [facility] ([place]) 24 hour Crisis Hotline: 122.561.1634 or 816-075-3375. MANUAL Your Guide to a Healthy manual is now on-line. Visit [email or web address] to download your free copy documented in this encounter [facility] 06-24-2024 Progress note Formatting of t his note might be different from the original. S: Kiera Arvizu is a 24 year old female who presents at 11/10/2024, by Last Menstrual Period for a routine visit. Denies headache, visual changes, chest pain, shortness of breath, vaginal bleeding, leakage of fluid, or dysuria. Feeling well, no complaints. O: See flow sheet Gen: No apparent distress Abd: Gravid, nontender Anatomy completed today Starting to feel movement Is hoping for a TOLAC. Reviewed scheduling for 39 weeks if no labor or IOL at ASSESSMENT/PLAN: 1. Encounter for supervision of normal first in second trimester - ICD9: V22.0, ICD10: Z34.02 (primary diagnosis) 2. History of pre-eclampsia - ICD9: V13.29, ICD10: Z87.59 bASA Previous delivery at 29 weeks 3. History of section - ICD9: V45.89, ICD10: Z98.891 Plans TOLAC 4. 20 weeks gestation of - ICD9: V22.2, ICD10: Z3A.20 Katherine Brunner MD [facility] 06-24-2024 Miscellaneous Notes S: Kiera Arvizu is a 24 year old female who presents at 11/10/2024, by Last Menstrual Period for a routine visit. Denies headache, visual changes, chest pain, shortness of breath, vaginal bleeding, leakage of fluid, or dysuria. Feeling well, no complaints. O: See flow sheet Gen: No apparent distress Abd: Gravid, nontender Anatomy completed today Starting to feel movement Is hoping for a TOLAC. Reviewed scheduling for 39 weeks if no labor or IOL at [facility] ASSESSMENT/PLAN: 1. Encounter for supervision of normal first in second trimester - ICD9: V22.0, ICD10: Z34.02 (primary diagnosis) 2. History of pre-eclampsia - ICD9: V13.29, ICD10: Z87.59 bASA Previous delivery at 29 weeks 3. History of section - ICD9: V45.89, ICD10: Z98.891 Plans TOLAC 4. 20 weeks gestation of - ICD9: V22.2, ICD10: Z3A.20 Katherine Brunner MD documented in this encounter [facility] 05-20-2024 Telephone encounter Note 15w1d Patient called to inquire about her results of [id number]. Advised that provider has not reviewed her labs as of yet. Notified of baby's gender per patient and 's request. Katherine Philip RN [facility] 05-20-2024 Miscellaneous Notes 15w1d Patient called to inquire about her results of [id number]. Advised that provider has not reviewed her labs as of yet. Notified of baby's gender per patient and 's request. Katherine Philip RN documented in this encounter [facility] 05-14-2024 Progress note Formatting of t his note might be different from the original. KJ - VB No. LOF No. CTXS No. Movement: absent. Other c/o: No. Medication list reviewed. Physical Exam See Flow Sheet Gen: no accute distress, well appearing A/P 14w2d Estimated Date of Delivery: 11/10/24 NT today Anatomy US scheduled H/o preE - continue aspirin MOD - patient desires TOLAC. Reviewed that if develops high blood pressure complications would recommend repeat at [facility] or referral to tertiary care center if strongly desires IOL. Recommend scheduling repeat at 39-40 weeks. All questions answered. Kamar Valdovinos MD [facility] 05-14-2024 Miscellaneous Notes KJ - VB No. LOF No. CTXS No. Movement: absent. Other c/o: No. Medication list reviewed. Physical Exam See Flow Sheet Gen: no accute distress, well appearing A/P 14w2d Estimated Date of Delivery: 11/10/24 NT today Anatomy US scheduled H/o preE - continue aspirin MOD - patient desires TOLAC. Reviewed that if develops high blood pressure complications would recommend repeat at [facility] or referral to tertiary care center if strongly desires IOL. Recommend scheduling repeat at 39-40 weeks. All questions answered. Kamar Valdovinos MD documented in this encounter [facility] 05-14-2024 Progress note Formatting of t his note might be different from the original. Anatomy ultrasound reviewed. No abnormalities identified. Follow up as clinically indicated. Please place copy in ob chart. Collette Cisneros MD [facility] Work Phone: 05-14-2024 Miscellaneous Notes Anatomy ultrasound reviewed. No abnormalities identified. Follow up as clinically indicated. Please place copy in ob chart. Collette Cisneros MD documented in this encounter [facility] 05-14-2024 History of Present illness Narrative [facility]s [facility] Outpatient Visit Type: Maternal Medicine Consult Outpatient Visit Date: May 14, 2024 Service Time: 830 AM Requesting Provider: Mik Mendoza History of Present Illness: Kiera Arvizu is 23 year old at 14w2d presenting for consultation with Maternal- Medicine at [facility] in the setting of history of preeclampsia . History Review Obstetric History T0 L1 SAB0 IAB0 Ectopic0 Multiple0 Live Births1 Name of Baby 1: Stevan Date: 04/12/22 GA: 29w2d Type: , Low Transverse Apgar1: 9 Apgar5: 9 Living: Living Name of Baby 2: Not recorded Date: Not recorded GA: Not recorded Type: Not recorded Apgar1: Not recorded Apgar5: Not recorded Living: Not recorded PAST MEDICAL HISTORY Diagnosis Date Hx of pre-term labor had child at 26 weeks Pre-eclampsia PAST SURGICAL HISTORY Procedure Laterality Date SECTION HX 04/12/2022 primary c/s d/t severe pre-eclampsia Current Outpatient Medications on File Prior to Visit Medication Sig aspirin, enteric coated (ECOTRIN LOW STRENGTH) 81 mg EC tablet Take 1 tablet by mouth once daily. 25/iron/folate 6/dha (PRENA1 ORAL) Take 1 tablet by mouth once daily. ALLERGIES No Known Allergies FAMILY HISTORY Problem Relation Age of Onset No Ocular Disease Mother No Ocular Disease Father No Known Problems Sister No Known Problems Sister No Known Problems Sister Strabismus Maternal Grandmother Heart disease Maternal Grandfather Cancer Paternal Grandmother No Known Problems Paternal Grandfather Social History Tobacco Use Smoking status: Never Smokeless tobacco: Never Vaping Use Vaping status: Former Substance Use Topics Alcohol use: Not Currently Drug use: Not Currently Types: Marijuana Review of Systems: The patient denies bleeding, leakage of fluid, contractions, back pain, nausea, heartburn, headache, SOB, chest pain, and palpitations. BP: 108/80, Weight: 139 lb 9.6 oz (63.3 kg) Body mass index is 23.23 kg/m . Physical Exam: Gen: Well appearing, in no acute distress. Lungs: Non-labored breathing on room air Abd: Abdomen soft, non-tender during US exam SVE: Deferred SSE:Deferred Legs: Moving spontaneously, no significant bilateral edema. US today shows: The patient is referred for a first trimester anatomy scan including nuchal translucency measurement as clinically indicated. - Single, live, intrauterine . - Regina rump length measurement and biometry are consistent with the established gestational age. - A qualitative screen of the nuchal translucency and other anatomic structures was unremarkable on first trimester anatomic assessment. - Not all structural malformations can be detected by ultrasound examination. Maternal Structures: Right Ovary: Size 36 mm x 33 mm x 31 mm Left Ovary: Size 29 mm x 29 mm x 20 mm Labs: Baseline labs have been ordered Assessment and Plan: 23 year old at 14w2d with the following issues. Please see my counseling and recommendations documented in problem-based charting below. Her history of preeclampsia puts her at increased risk for recurrence of preeclampsia. However, not all people develop preeclampsia in subsequent pregnancies. The risks of hypertensive disorders during include (not limited to) the risk of preeclampsia, growth restriction, abruption, cerebro-vascular accident, intracranial bleeds and worsening renal function. Recommend nightly low dose aspirin, healthy weight gain to modify risk, as well as 32 week growth ultrasound. Problem List Items Addressed This Visit SIDE LASTER History of section Overview Wants to 04/12/2022 at [facility] Surgical Operations & Procedures: Date of delivery: 04/12/22 Procedure: : Low Transverse Anesthesia: Spinal anesthesia and TAP block Laceration(s): n/a Delivery Complications: none EBL: 500 mL History of pre-eclampsia Overview Delivered at 29 weeks at [facility]. Baseline labs were ordered but not drawn Current Assessment & Plan Encouraged to have baseline labs Aspirin 162mg nightly Anatomy ultrasound 18-20 weeks Growth ultrasound 32 weeks History of delivery, currently - Primary Overview 04/12/2022 for pre eclampsia 29w2d Current Assessment & Plan History iatrogenic PTD for severe preeclampsia Patient should continue care with her general OBGYN, please re consult should new issues or questions arise. Consultation requested by Mik Mendoza NP for an opinion regarding complications. My final recommendations will be communicated back to the requesting physician by way of shared Medical record or letter to requesting physician via US mail. I spent a total of 45 minutes on the date of the service which included preparing to see the patient, [id number] patient care, completing clinical documentation, obtaining and/or reviewing separately obtained history, and communicating results to the patient/family/caregiver. I shared my findings and recommendations via the shared medical record or via the mail to the referring provider. Darnell Blank MD documented in this encounter [facility] 05-14-2024 Note HNO ID: [id number] Author: DARNELL BLANK MD Service: ? Author Type: Physician Type: Progress Notes Filed: 05/14/2024 09:20 Note Text: Obstetrics AND Gynecology [facility] Outpatient Visit Type: Maternal Medicine Consult Outpatient Visit Date: May 14, 2024 Service Time: 830 AM Requesting Provider: Mik Mendoza History of Present Illness: Kiera Arvizu is 23 year old at 14w2d presenting for consultation with Maternal- Medicine at [facility] in the setting of history of preeclampsia . History Review Obstetric History T0 L1 SAB0 IAB0 Ectopic0 Multiple0 Live Births1 Name of Baby 1: Stevan Date: 04/12/22 GA: 29w2d Type: , Low Transverse Apgar1: 9 Apgar5: 9 Living: Living Name of Baby 2: Not recorded Date: Not recorded GA: Not recorded Type: Not recorded Apgar1: Not recorded Apgar5: Not recorded Living: Not recorded PAST MEDICAL HISTORY Diagnosis Date Hx of pre-term labor had child at 26 weeks Pre-eclampsia PAST SURGICAL HISTORY Procedure Laterality Date SECTION HX 04/12/2022 primary c/s d/t severe pre-eclampsia Current Outpatient Medications on File Prior to Visit Medication Sig aspirin, enteric coated (ECOTRIN LOW STRENGTH) 81 mg EC tablet Take 1 tablet by mouth once daily. 25/iron/folate 6/dha (PRENA1 ORAL) Take 1 tablet by mouth once daily. ALLERGIES No Known Allergies FAMILY HISTORY Problem Relation Age of Onset No Ocular Disease Mother No Ocular Disease Father No Known Problems Sister No Known Problems Sister No Known Problems Sister Strabismus Maternal Grandmother Heart disease Maternal Grandfather Cancer Paternal Grandmother No Known Problems Paternal Grandfather Social History Tobacco Use Smoking status: Never Smokeless tobacco: Never Vaping Use Vaping status: Former Substance Use Topics Alcohol use: Not Currently Drug use: Not Currently Types: Marijuana Review of Systems: The patient denies bleeding, leakage of fluid, contractions, back pain, nausea, heartburn, headache, SOB, chest pain, and palpitations. BP: 108/80, Weight: 139 lb 9.6 oz (63.3 kg) Body mass index is 23.23 kg/m?. Physical Exam: Gen: Well appearing, in no acute distress. Lungs: Non-labored breathing on room air Abd: Abdomen soft, non-tender during US exam SVE: Deferred SSE:Deferred Legs: Moving spontaneously, no significant bilateral edema. US today shows: The patient is referred for a first trimester anatomy scan including nuchal translucency measurement as clinically indicated. - Single, live, intrauterine . - Regina rump length measurement and biometry are consistent with the established gestational age. - A qualitative screen of the nuchal translucency and other anatomic structures was unremarkable on first trimester anatomic assessment. - Not all structural malformations can be detected by ultrasound examination. Maternal Structures: Right Ovary: Size 36 mm x 33 mm x 31 mm Left Ovary: Size 29 mm x 29 mm x 20 mm Labs: Baseline labs have been ordered Assessment and Plan: 23 year old at 14w2d with the following issues. Please see my counseling and recommendations documented in problem-based charting below. Her history of preeclampsia puts her at increased risk for recurrence of preeclampsia. However, not all people develop preeclampsia in subsequent pregnancies. The risks of hypertensive disorders during include (not limited to) the risk of preeclampsia, growth restriction, abruption, cerebro-vascular accident, intracranial bleeds and worsening renal function. Recommend nightly low dose aspirin, healthy weight gain to modify risk, as well as 32 week growth ultrasound. Problem List Items Addressed This Visit SIDE LASTER History of section Overview Wants to 04/12/2022 at [facility] Surgical Operations AND Procedures: Date of delivery: 04/12/22 Procedure: : Low Transverse Anesthesia: Spinal anesthesia and TAP block Laceration(s): n/a Delivery Complications: none EBL: 500 mL History of pre-eclampsia Overview Delivered at 29 weeks at [facility]. Baseline labs were ordered but not drawn Current Assessment AND Plan Encouraged to have baseline labs Aspirin 162mg nightly Anatomy ultrasound 18-20 weeks Growth ultrasound 32 weeks History of delivery, currently - Primary Overview 04/12/2022 for pre eclampsia 29w2d Current Assessment AND Plan History iatrogenic PTD for severe preeclampsia Patient should continue care with her general OBGYN, please re consult should new issues or questions arise. Consultation requested by Mik Mendoza NP for an opinion regarding complications. My final recommendations will be communicated back to the requesting physician by way of shared Medical record or letter to requesting (more content not included)... [facility] 05-14-2024 Instructions Kayla Walker MA - 05/14/2024 8:45 AM EST SEQUENTIAL SCREENINGS The [facility] offers sequential screenings for women who are interested in screenings for chromosomal abnormalities and certain defects during a . The sequential screen combines ultrasound and blood tests to determine the risk of chromosomal abnormalities, including Down's Syndrome (Trisomy 21) and Trisomy 18, as well as open neural tube defects including spina bifida. Ultrasound examination is performed between 11 weeks and 13 weeks gestational age. Blood tests are drawn after the ultrasound and again later in the between 15 and 21 weeks gestational age. Please let your physician know if you are interested in this testing. It will require an appointment with our medical coding technician. This is not an ultrasound performed by a physician in our office during a routine visit. SIGNS AND SYMPTOMS OF LABOR 1. Contractions every 10 minutes or more often 2. Clear, pink, or brownish fluid (water) leaking from vagina 3. Feeling that baby is pushing down, pressure 4. Low, dull backache 5. Cramps that feel like a period 6. Cramps with or without diarrhea If you notice any of the above symptoms, contact our office at [phone] and ask to speak with a nurse. After hours, you can call doctors registry at [phone] OR call [facility] at [phone] and ask to have the doctor prevention coordinator paged. If you consider this an emergency, dial or go to your nearest emergency department. NEED HELP? Are you dealing with a violent or abusive relationship? Are you a victim of rape or sexual assult? Call [facility] ([facility] 24 hour Crisis Hotline: 856.874.7052 or 806-571-8814. MANUAL Your Guide to a Healthy manual is now on-line. Visit [email or web address] to download your free copy documented in this encounter [facility] 03-29-2024 Telephone encounter Note 1st risk assessment form submitted 03/29/2024 7w 5d today [facility] 03-29-2024 Miscellaneous Notes 1st risk assessment form submitted 03/29/2024 7w 5d today documented in this encounter [facility] 03-28-2024 Note HNO ID: [id number] Author: MIK MENDOZA APRN.BOX TRUCK DRIVER Service: ? Author Type: Nurse Practitioner Type: Progress Notes Filed: 03/28/2024 10:34 Note Text: Social Media Editor offered: Patient declines. INITIAL OB ASSESSMENT HPI: Kiera is a 23 year old White Female here to establish Obstetrical Care. Patient's last menstrual period was 02/04/2024. from OB Dating Form. was planned Complaints: No OB History T0 L1 SAB0 IAB0 Ectopic0 Multiple0 Live Births1 Previous history: Prior : yes x 1 History of 4th degree laceration: No History of shoulder dystocia: No History of Hypertensive disorders including pre-eclampsia or gestational hypertension: Yes History of gestational diabetes: No Patient's Risk Screening for delivery: Have you had a prior lui between 20w and 36w6d? Yes Did you present in active spontaneous labor or have ruptured membranes, or advanced cervical dilation (greater than or equal to 4 cm) or effacement? No How many pregnancies have you had before? 2 Did you have a previous baby with a GBS Infection? No Please select all that apply for any prior : N/A MEDICAL/PSYCHOSOCIAL HISTORY: History of hemorrhage or bleeding concerns: No Thyroid Disease: No History of chronic hypertension: No History of pre-existing diabetes: No No results found for: ABORHD BMI 21.98 kg/(m2) Last Pap: History of abnormal pap: No Prior treatment for cervical dysplasia: none. Last HPV: History of STDs: None Partner History of STDs: None Did you have a partner with Herpes? No Tobacco use: No E-Cigarette/Vaping Use: No Caffeine use: Yes Drug use: No Alcohol use: No Multivitamin with Folic acid: Yes Would refuse blood transfusion if medically necessary: No Social Needs: How often does this describe you? I don't have enough money to pay my bills: Never Within the past 12 months, have you worried that your food would run out before you had money to buy more? Never In the past 12 months, has lack of reliable transportation kept you from going to medical appointments or work, or from getting things needed for daily living? Never In the past 12 months, have you had any concerns about having a place to live, or about the condition or quality of your housing? Never Would you like more information on any of the following (please check all that apply)? Centering (group care classes) Social History: Do you have any history of depression, anxiety, PTSD, or other mood problems? No Do you have a history of abuse or trauma that may impact your experience? No Are you currently employed? Yes Depression/Anxiety Screening: denies symptoms of depression. OB Depression and Anxiety Screening- This Encounter (since 03/27/2024) Over the past 2 weeks have you felt down, depressed, or hopeless? Negative Over the past two weeks, have you felt little interest or pleasure in doing things?? Negative Feeling nervous, anxious or on edge 1-Several days Not being able to stop or control worrying 1-Several days Anxiety Pre-Screening Total (If >/= 3 additional questions will be reviewed) 2 Genetic Screening: Partner present: No Patient verbalized knowledge of partner family health history: Yes Do you or your partner have any personal or family history of defects not previously discussed: No Do you have history of a complicated by anomaly, genetic condition, or demise: No Preeclampsia Risk Screening: Screening for prevention of preeclampsia: High risk factors: None Moderate risk ractors: None OB Risk Screening: Completed, positive findings include: Patient answered 'Yes' they had a prior lui between 20w and 36w6d. 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 No current facility-administered medications for this visit. Allergies As of Date: 03/28/2024 (Not on File) Fully Assessed 03/28/2024 SBIRT Kiera Arvizu was given the 4P's screening tool. Kiera answered as follows: OB Opioid Screening - Last Recorded (since 07/02/2023) Did any of your parents have a problem with alcohol or other drug use? Yes Does your partner have a problem with alcohol or other drug use? No In the past, have you had difficulties in your life because of alcohol or other drugs, including prescription medications? No In the past month have you drunk any alcohol or used other drugs? No Are you taking medication for pain (more content not included)... [facility] 03-28-2024 History of Present illness Narrative Social Media Editor offered: Patient declines. INITIAL OB ASSESSMENT HPI: Kiera is a 23 year old White Female here to establish Obstetrical Care. Patient's last menstrual period was 02/04/2024. from OB Dating Form. was planned Complaints: No OB History T0 L1 SAB0 IAB0 Ectopic0 Multiple0 Live Births1 Previous history: Prior : yes x 1 History of 4th degree laceration: No History of shoulder dystocia: No History of Hypertensive disorders including pre-eclampsia or gestational hypertension: Yes History of gestational diabetes: No Patient's Risk Screening for delivery: Have you had a prior lui between 20w and 36w6d? Yes Did you present in active spontaneous labor or have ruptured membranes, or advanced cervical dilation (greater than or equal to 4 cm) or effacement? No How many pregnancies have you had before? 2 Did you have a previous baby with a GBS Infection? No Please select all that apply for any prior : N/A MEDICAL/PSYCHOSOCIAL HISTORY: History of hemorrhage or bleeding concerns: No Thyroid Disease: No History of chronic hypertension: No History of pre-existing diabetes: No No results found for: ABORHD BMI 21.98 kg/(m^2) Last Pap: History of abnormal pap: No Prior treatment for cervical dysplasia: none. Last HPV: History of STDs: None Partner History of STDs: None Did you have a partner with Herpes? No Tobacco use: No E-Cigarette/Vaping Use: No Caffeine use: Yes Drug use: No Alcohol use: No Multivitamin with Folic acid: Yes Would refuse blood transfusion if medically necessary: No Social Needs: How often does this describe you? I don't have enough money to pay my bills: Never Within the past 12 months, have you worried that your food would run out before you had money to buy more? Never In the past 12 months, has lack of reliable transportation kept you from going to medical appointments or work, or from getting things needed for daily living? Never In the past 12 months, have you had any concerns about having a place to live, or about the condition or quality of your housing? Never Would you like more information on any of the following (please check all that apply)? Centering (group care classes) Social History: Do you have any history of depression, anxiety, PTSD, or other mood problems? No Do you have a history of abuse or trauma that may impact your experience? No Are you currently employed? Yes Depression/Anxiety Screening: denies symptoms of depression. OB Depression and Anxiety Screening- This Encounter (since 03/27/2024) Over the past 2 weeks have you felt down, depressed, or hopeless? Negative Over the past two weeks, have you felt little interest or pleasure in doing things? Negative Feeling nervous, anxious or on edge 1-Several days Not being able to stop or control worrying 1-Several days Anxiety Pre-Screening Total (If >/= 3 additional questions will be reviewed) 2 Genetic Screening: Partner present: No Patient verbalized knowledge of partner family health history: Yes Do you or your partner have any personal or family history of defects not previously discussed: No Do you have history of a complicated by anomaly, genetic condition, or demise: No Preeclampsia Risk Screening: Screening for prevention of preeclampsia: High risk factors: None Moderate risk ractors: None OB Risk Screening: Completed, positive findings include: Patient answered 'Yes' they had a prior lui between 20w and 36w6d. 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 No current facility-administered medications for this visit. Allergies As of Date: 03/28/2024 (Not on File) Fully Assessed 03/28/2024 SBIRT Kiera Arvizu was given the 4P's screening tool. Kiera answered as follows: OB Opioid Screening - Last Recorded (since 07/02/2023) Did any of your parents have a problem with alcohol or other drug use? Yes Does your partner have a problem with alcohol or other drug use? No In the past, have you had difficulties in your life because of alcohol or other drugs, including prescription medications? No In the past month have you drunk any alcohol or used other drugs? No Are you taking medication for pain during the either prescribed or not? No Based on the screen and further questions, she is considered at Low risk due to:No past or current use. Positive reinforcement of current behavior. Plan to rescreen early third trimester. Mik Mendoza APRN.BOX TRUCK DRIVER Does patient have penicillin allergy: No REVIEW OF SYSTEMS: GENERAL: Negative for: Fever or Chills HEENT: Negative for: Headache, Impaired Vision, Ringing in Ears, Nosebleeds NECK: Negative for: Swelling, Pain, Stiffness RESPIRATORY: Negative for: Cough, Shortness of breath, Wheezing GASTROINTESTINAL: Negative for: Diarrhea, Blood in stool, Vomiting + constipation and heartburn MUSCULOSKELETAL: Negative for: Muscle or joint pain, stiffness, Joint swelling NEUROLOGIC/PSYCHIATRIC: Negative for: Weakness, Paralysis, Numbness, Tingling, Tremor, Depression, Memory loss + anxiety SKIN: Negative for: Rash, Itching GENITOURINARY: Negative for: vaginal itching, vaginal discharge, hematuria or dysuria SENSITIVE EXAM: The sensitive examination was discussed with the Patient or Patient's Authorized Patient Navigator. As applicable, any other physician, advance practice provider, medical student, or other health professional student that will be observing or involved in the sensitive examination for educational or training purposes was discussed with the Patient or Authorized Patient Navigator. The Patient or Authorized Patient Navigator has agreed to proceed with the sensitive examination. (Sensitive examination includes inspection and/or palpation of the breasts, pelvis, prostate and anorectal regions). PHYSICAL EXAM: BP 104/62 Ht 5' 5.472 (1.66m) Wt 134 lb (60.8kg) LMP 02/04/2024 BMI 21.98 kg/(m^2). GENERAL: pleasant in no apparent distress DERMATOLOGY: Normal, without lesions, non-icteric, and non-hirsute NECK: Supple, full range of motion, no adenopathy, and thyroid normal CHEST: Normal inspiratory effort BREAST: soft, non-tender, symmetric, no dominant mass, normal nipple-areolar complex, no lymphadenopathy, and no nipple discharge ABDOMEN: soft, non-tender, and no masses NEURO: alert and oriented x3,exam grossly non-focal PELVIS: External genitalia normal without lesions. Perineal body intact. No vaginal or cervical lesions. Cervix closed. Uterus 7 week size. No adnexal masses or tenderness. Clinical Pelvimetry: Pelvimetry clinically assessed as adequate Limited OB ultrasound exam: single intrauterine and positive cardiac activity ASSESSMENT: 23 year old at 7w4d wks gestational age PLAN: 1) Patient oriented to practice. Patient given new OB orientation folder. Discussed nutrition, folic acid supplementation, dietary guidelines, exercise, smoking, alcohol, caffeine, and drug use. Discussed gestational weight gain guidelines. Discussed routine OB labs including STD/HIV. Discussed how to access Your guide to a health and the Social Work Nurse. Discussed hemoglobin electrophoresis. Patient: Declines Reviewed midwifery and coverstitch binder services that are available. Reviewed [facility] program. Patient declines referral at this time. 2) Screening: Hemoglobin A1C: ordered Baby Aspirin: The patient has been counseled about the potential benefits of low dose aspirin in and our recommendation that this be offered to all patients, regardless of whether they meet the high risk criteria specified above. She Accepts Aneuploidy Screening: Discussed aneuploidy screening, nuchal translucency/first trimester early anatomy ultrasound and NIPT. The risks/benefits and limitations of NIPT/aneuploidy screening were reviewed including the potential for false negative and false positive results. The availability of genetic counseling was reviewed. Information on aneuploidy screening was provided. The patient chooses to proceed with First trimester early anatomy ultrasound (12-13w6d) Myriad Carrier Screening: Discussed myriad carrier screening. We discussed the availability of professional-society guided carrier screening and reviewed the conditions screened and limitations of screening. The availability of genetic counseling was reviewed. Information on carrier screening was provided. The patient Declines 3) Patient offered option of Virtual Visits. Patient unsure. May consider in future. ACTIVE PROBLEM LIST Encounter for Supervision of High Risk in First Trimester, Antepartum - 03/28/2024 Comment: Care Checklist Vaccines: [] Flu vaccine [] declined [] RSV vaccine 32 0/7 - 36 6/7 (Nov - Apr) [] declined [] COVID vaccine [] declined [] TDaP 27-36 [] declined First trimester: [x] Dating US [] 1st tri labs [x] Pap smear [] Carrier screening [x] declined [] NIPT screening [x] declined [x] First trimester anatomy scan [] declined [x] universal ASA ordered (start 12w-16w) [] declined [] M Power Consult [] not indicated [] declined Second trimester: [] Anatomy scan [] Mode of Delivery - [] Feeding - [] Pump ordered [] Diabetes screen [] CBC, RPR [] Behavioral Health Screening Third trimester (28-30 weeks): [] Consent [] Contraception [] Hall Cleaner [] TeamBirth handout Third trimester (36-40 weeks): [] GBS [] Presentation - [] Scheduled [] yes - Hibiclens, pre-op instructions, CBC, T&S ordered [] no [] H&P [] Preferences worksheet [] Scanned in EMR History of Section - 03/28/2024 Comment: Wants to - to discuss with physician 04/12/2022 at [facility] Surgical Operations & Procedures: Date of delivery: 04/12/22 Procedure: : Low Transverse Anesthesia: Spinal anesthesia and TAP block Laceration(s): n/a Delivery Complications: none EBL: 500 mL History of Pre-Eclampsia - 03/28/2024 Comment: March 28, 2024 Delivered at 29 weeks at [facility]. Baseline labs ordered. MFM consult ordered. History of Delivery, Currently - 03/28/2024 Comment: 04/12/2022 for pre eclampsia 29w2d Mik Mendoza APRN.CNP Constipation During in First Trimester - 03/28/2024 Comment: March 28, 2024 Discussed Colace and increased hydration Mik Mendoza APRN.CNP Heartburn During in First Trimester - 03/28/2024 Comment: March 28, 2024 Discussed Tums PRN Mik Mendoza APRN.CNP Follow up in 4 weeks or sooner prn. Plan for NT scan between 12w0d and 13w6d gestation. Mik Mendoza APRN.CNP documented in this encounter [facility] 03-25-2024 Instructions Mik Mendoza APRN.CNP - 03/25/2024 3:46 PM EST Please select the following link to access the [facility] Your Guide to a Healthy . [email or web address] Please select the following link to access the [facility] Your Guide to a Healthy . [email or web address] [facility] provides specialized care for patients whose experiences may be affected by previous traumatic experiences. The [facility] program is designed to care for patients who have experienced assault, physical or sexual abuse, previous childbirth trauma or other significant life events. Our goal is to provide you with the best experiences and outcomes. Nurses specially trained in trauma-informed care put your needs first, and provide you with confidential and compassionate support.This holistic approach ensures that feel prepared for labor, delivery, and the period. To speak with our team, please call [phone] or email documented in this encounter [facility] 02-28-2024 Miscellaneous Notes Noted. Will have patient sign a release of records if not received before her appointment. Some records are available in Care Everywhere. Katherine Philip RN Patient wanted to let the office know she has been trying to request her records from [facility] for over a month now, and she still has not heard anything back. Patient states she has tried multiple times. Please review. Nandini Hardin February 28, 2024 11:25 AM documented in this encounter [facility] 02-28-2024 Telephone encounter Note Noted. Will have patient sign a release of records if not received before her appointment. Some records are available in Care Everywhere. Katherine Philip RN [facility] 02-28-2024 Telephone encounter Note Patient wanted to let the office know she has been trying to request her records from [facility] for over a month now, and she still has not heard anything back. Patient states she has tried multiple times. Please review. Nandini Hardin February 28, 2024 11:25 AM [facility] 12-26-2023 Telephone encounter Note Patient rescheduled with Dr Mojica. She will have her records sent to our office. Fax number provided [facility] 12-26-2023 Miscellaneous Notes Patient rescheduled with Dr Mojica. She will have her records sent to our office. Fax number provided Left message for patient to return phone call. Patient is scheduled for [facility] 01/02/2024 for preconceptual counseling . There is no referral. Appointment notes states pre-eclampsia with previous . Please triage. Dr Blank said it probably would be best for patient to start with OB doctor here for pre-conceptual counseling to see if referral to MFM is necessary. We would also need records if she proceeds with any appointment-none found in [facility] or [facility]-everywhere documented in this encounter [facility] 12-19-2023 Telephone encounter Note Left message for patient to return phone call. Patient is scheduled for [facility] 01/02/2024 for preconceptual counseling . There is no referral. Appointment notes states pre-eclampsia with previous . Please triage. Dr Blank said it probably would be best for patient to start with OB doctor here for pre-conceptual counseling to see if referral to MFM is necessary. We would also need records if she proceeds with any appointment-none found in [facility] or [facility]-everywhere [facility] 04-15-2022 History of Present illness Narrative Images from the original note were not included. Note- POST OPERATIVE DAY # 3 Kiera Bello is a 21 y.o. who was seen & examined today. Her was complicated by: Patient Active Problem List Diagnosis Preeclampsia, severe, third trimester Severe pre-eclampsia in third trimester Today she is doing well without any chief complaint. Her lochia is light. She denies Headache, Chest Pain, Vision Changes, Shortness of Breath, and Epigastric Pain. She is ambulating well. Flatus present. Voiding without difficulty. She is tolerating solids. Pain is controlled yes. Vital Signs: Vitals: 04/14/22 1808 04/14/22 2010 04/14/22 2306 04/15/22 0304 BP: 131/82 135/86 127/85 123/77 BP Location: Right arm Left arm Right arm Patient Position: Sitting Sitting Lying Pulse: 97 81 85 85 Resp: 18 18 16 18 Temp: 36.8 C (98.3 F) 36.3 C (97.3 F) 36.6 C (97.8 F) 37.5 C (99.5 F) TempSrc: Oral Temporal Temporal Temporal SpO2: 96% 100% 97% 95% Weight: Height: Urine Input & Output last 24hrs: Intake/Output Summary (Last 24 hours) at 04/15/2022 0630 Last data filed at 04/14/2022 0920 Gross per 24 hour Intake -- Output 600 ml Net -600 ml Physical Exam: GENERAL APPEARANCE: alert, well appearing, in no apparent distress ABDOMEN : fundus firm, no acute ttp Desc; incision: healing well, no drainage, no erythema, well approximated Labs: Lab Results Component Value Date WBC 19.2 (H) 04/13/2022 HGB 12.9 04/13/2022 HCT 38.2 04/13/2022 MCV 90.2 04/13/2022 PLT 207 04/13/2022 A Antibody Screen: No results found for: LABANTI No results found for: RUBELLAIGG LABOR DELIVERY ??? SCD's ONLY (labor through ambulation) SCD's PLUS Prophylactic Anticoagulation until discharge SCD's PLUS Prophylactic Anticoagulation for 6 weeks SCD's PLUS Therapeutic Anticoagulation for 6 weeks Vaginal Delivery [] BMI ? 40 kg/m2 Delivery All patients Vaginal Delivery [] BMI ? 40 kg/m2 AND [] Antepartum hospitalization ? 72 hours within the past month Delivery 1 Major Risk Factor: [] BMI ? 35 kg/m2 [] Low Risk Thrombophilia [] PPH+RBCs, IR, or operation [] Infection+Antibiotics [] Antepartum hospitalization ? 72 hours within the past month [x] PMH: Sickle Cell, SLE, Cardiac Dz, Active IBD, Active Cancer, Nephrotic Syndrome OR 2 Minor Risk Factors: [] Multiple gestation [] Age > 40 [] PPH ? 1,000cc [] (+)FMH of VTE [] Smoker [] Preeclampsia [] BMI ? 40 kg/m2 AND [] Low Risk Thrombophilia OR ANY OF THE FOLLOWING: [] High Risk Thrombophilia without prior VTE [] Low Risk Thrombophilia with (+)FMH of VTE [] Any single prior VTE ANY OF THE FOLLOWING: [] Already on LMWH/UFH [] Multiple prior VTE [] High Risk Thrombophilia with prior VTE Low Risk Thrombophilia: FVL (heterozygous), Prothrombin (heterozygous), Protein C, Protein S High Risk Thrombophilia: FVL (homozygous), Prothrombin (homozygous), FVL+Prothrombin (heterozygous), Antithrombin III, APLS Assessment/Plan: Kiera Bello is a 21 y.o. POD # 3 s/p PLTCS 2/2 PreEwSF Care - Doing well, VSS - Male - both, breast and bottle feeding - Contraception: Per Private Attending - Encourage ambulation and use of incentive spirometer - Postop Hb 12.9 - VTE Prophylaxis: Prophylactic Dosing until Discharge PreEwFS TOMASA -BP normotensive to mild range overnight -Continue Procardia XL 60mg daily -S/p magnesium sulfate for seizure ppx -Cr noted to improve from 1.15-->0.94, no further trending of labs -UOP adequate -C3/4, LUCIA and anti-dsDNA negative -Asx this AM Disposition: Anticipate discharge today per private attending's discretion Based on my clinical assessment, this patient Yes: Plan B - Risks and benefits discussed. safe for self discharge (does not need transport by wheelchair) if she so chooses. Provider's Name: MD Delaney Luciano, 04/15/2022, 6:30 AM Attestation Statement I saw and evaluated the patient. I agree with the findings and plans of the resident physician, and agree as documented in her note. Doing well POD#3, meeting milestones. Blood pressures normal range on Procardia 60XL daily. Will plan for BP check early next week. Ok for discharge to home with routine follow up 6 weeks PP. PP/post-op instruction and precautions provided. I spent 20 minutes in the visit, with more than 50% of the total [id number] time of the visit in counseling/coordination of care. , 10:20 AM Nutrition rescreen completed. Patient assigned a level 1. YORDY Viveros Images from the original note were not included. Note- POST OPERATIVE DAY # 2 Kiera Bello is a 21 y.o. who was seen & examined today. Her was complicated by: Patient Active Problem List Diagnosis Preeclampsia, severe, third trimester Severe pre-eclampsia in third trimester Today she is doing well without any chief complaint. Her lochia is light. She denies Headache, Chest Pain, Vision Changes, Shortness of Breath, and Epigastric Pain. She is ambulating well. Flatus present. Bowel movement absent. Voiding without difficulty. She is tolerating solids. Pain is controlled yes. Vital Signs: Vitals: 04/13/22 2252 04/13/22 2311 04/14/22 0337 04/14/22 0420 BP: 132/87 125/82 121/86 BP Location: Right arm Patient Position: Sitting Pulse: 97 90 91 Resp: 16 16 18 Temp: 36.1 C (97 F) 36.2 C (97.2 F) 36.4 C (97.6 F) TempSrc: Temporal Temporal Temporal SpO2: 99% 99% 98% Weight: 73.9 kg Height: Urine Input & Output last 24hrs: Intake/Output Summary (Last 24 hours) at 04/14/2022 0629 Last data filed at 04/14/2022 0343 Gross per 24 hour Intake 400 ml Output 1635 ml Net -1235 ml Physical Exam: GENERAL APPEARANCE: alert, well appearing, in no apparent distress LUNGS: clear to auscultation, no wheezes, rales or rhonchi, symmetric air entry ABDOMEN : fundus firm, no acute ttp EXTREMITIES: no redness or tenderness in the calves or thighs NEUROLOGIC: alert, oriented, normal speech, no focal findings or movement disorder noted Desc; incision: healing well, no drainage, no erythema Labs: Lab Results Component Value Date WBC 19.2 (H) 04/13/2022 HGB 12.9 04/13/2022 HCT 38.2 04/13/2022 MCV 90.2 04/13/2022 PLT 207 04/13/2022 A Antibody Screen: No results found for: LABANTI No results found for: RUBELLAIGG LABOR DELIVERY ??? SCD's ONLY (labor through ambulation) SCD's PLUS Prophylactic Anticoagulation until discharge SCD's PLUS Prophylactic Anticoagulation for 6 weeks SCD's PLUS Therapeutic Anticoagulation for 6 weeks Vaginal Delivery [] BMI ? 40 kg/m2 Delivery All patients Vaginal Delivery [] BMI ? 40 kg/m2 AND [] Antepartum hospitalization ? 72 hours within the past month Delivery 1 Major Risk Factor: [] BMI ? 35 kg/m2 [] Low Risk Thrombophilia [] PPH+RBCs, IR, or operation [] Infection+Antibiotics [] Antepartum hospitalization ? 72 hours within the past month [x] PMH: Sickle Cell, SLE, Cardiac Dz, Active IBD, Active Cancer, Nephrotic Syndrome OR 2 Minor Risk Factors: [] Multiple gestation [] Age > 40 [] PPH ? 1,000cc [] (+)FMH of VTE [] Smoker [] Preeclampsia [] BMI ? 40 kg/m2 AND [] Low Risk Thrombophilia OR ANY OF THE FOLLOWING: [] High Risk Thrombophilia without prior VTE [] Low Risk Thrombophilia with (+)FMH of VTE [] Any single prior VTE ANY OF THE FOLLOWING: [] Already on LMWH/UFH [] Multiple prior VTE [] High Risk Thrombophilia with prior VTE Low Risk Thrombophilia: FVL (heterozygous), Prothrombin (heterozygous), Protein C, Protein S High Risk Thrombophilia: FVL (homozygous), Prothrombin (homozygous), FVL+Prothrombin (heterozygous), Antithrombin III, APLS Assessment/Plan: Kiera Bello is a 21 y.o. POD # 2 s/p pLTCS 2/2 PreEwSF Care - Doing well, VSS - Male - both, breast and bottle feeding - Contraception: Per Private Attending - Encourage ambulation and use of incentive spirometer -Eddy removed on 04/13 - Postop Hb 12.9 - VTE Prophylaxis: Prophylactic Dosing until Discharge starting today PreEwSF TOMASA -BP's noted to be normotensive with rare mild range on Procardia XL 60mg daily -S/p magnesium sulfate for seizure ppx which was run @ 0.5-1 g/hr for renal dosing -Previously trending CBC, CMP and Mag q6 hrs, AM labs pending today -Cr noted to be elevated on admission at 1.15, continues to improve now 0.94 -UOP adequate overnight -C3/4 normal, LUCIA and anti-DNA pending -Continue daily weights -Asx this AM Disposition: Continue current care Based on my clinical assessment, this patient Yes: Plan B - Risks and benefits discussed. safe for self discharge (does not need transport by wheelchair) if she so chooses. Provider's Name: MD Delaney Luciano, 04/14/2022, 6:29 AM ATTENDING NOTE: I personally saw and evaluated the patient. I reviewed the care provided by the Resident including the patient's medical history, physical exam findings, diagnosis and treatment plan. I also agree with the documentation from the Resident unless otherwise indicated: Pt is doing well. TOMASA is improving. --- Total time spent with the patient was 15 minutes, of which greater than 50% of the time was spent counseling and coordinating care. Images from the original note were not included. Note- POST OPERATIVE DAY # 1 Kiera Bello is a 21 y.o. who was seen & examined today. Her was complicated by: Patient Active Problem List Diagnosis Preeclampsia, severe, third trimester Severe pre-eclampsia in third trimester Today she is doing well without any chief complaint. Her lochia is moderate. She denies Headache, Chest Pain, Vision Changes, and Shortness of Breath. She is ambulating well. Flatus present. Bowel movement absent. Eddy catheter still in place. She is tolerating solids. Pain is controlled yes. Vital Signs: Vitals: 04/12/22 2258 04/12/22 2300 04/13/22 0339 04/13/22 0553 BP: (!) 136/90 (!) 136/90 (!) 132/92 BP Location: Right arm Right arm Left arm Patient Position: Pulse: 69 69 74 Resp: Temp: 36 C (96.8 F) 36.3 C (97.4 F) 36.3 C (97.4 F) TempSrc: Temporal Temporal Temporal SpO2: 96% 96% 97% Weight: 164 lb 9.6 oz (74.7 kg) Height: Urine Input & Output last 24hrs: Intake/Output Summary (Last 24 hours) at 04/13/2022 0637 Last data filed at 04/13/2022 0530 Gross per 24 hour Intake 2684.9 ml Output 962 ml Net 1722.9 ml Physical Exam: Gen: NAD, well appearing HEENT: Normocephalic, Atraumatic, EOMI Resp: Non-labored breathing, no respiratory distress Abd: soft, gravid, appropriately tender, ND, no rebound, no guarding; fundus firm and non-tender Incision: Dermabond in place, healing well without erythema or drainage Ext: No LE edema, no calf tenderness or swelling Labs: Lab Results Component Value Date WBC 19.2 (H) 04/13/2022 HGB 12.9 04/13/2022 HCT 38.2 04/13/2022 MCV 90.2 04/13/2022 PLT 207 04/13/2022 A Antibody Screen: No results found for: LABANTI No results found for: RUBELLAIGG LABOR DELIVERY ??? SCD's ONLY (labor through ambulation) SCD's PLUS Prophylactic Anticoagulation until discharge SCD's PLUS Prophylactic Anticoagulation for 6 weeks SCD's PLUS Therapeutic Anticoagulation for 6 weeks Vaginal Delivery [] BMI ? 40 kg/m2 Delivery All patients Vaginal Delivery [] BMI ? 40 kg/m2 AND [] Antepartum hospitalization ? 72 hours within the past month Delivery 1 Major Risk Factor: [] BMI ? 35 kg/m2 [] Low Risk Thrombophilia [] PPH+RBCs, IR, or operation [] Infection+Antibiotics [] Antepartum hospitalization ? 72 hours within the past month [] PMH: Sickle Cell, SLE, Cardiac Dz, Active IBD, Active Cancer, Nephrotic Syndrome OR 2 Minor Risk Factors: [] Multiple gestation [] Age > 40 [] PPH ? 1,000cc [] (+)FMH of VTE [] Smoker [x] Preeclampsia [] BMI ? 40 kg/m2 AND [] Low Risk Thrombophilia OR ANY OF THE FOLLOWING: [] High Risk Thrombophilia without prior VTE [] Low Risk Thrombophilia with (+)FMH of VTE [] Any single prior VTE ANY OF THE FOLLOWING: [] Already on LMWH/UFH [] Multiple prior VTE [] High Risk Thrombophilia with prior VTE Low Risk Thrombophilia: FVL (heterozygous), Prothrombin (heterozygous), Protein C, Protein S High Risk Thrombophilia: FVL (homozygous), Prothrombin (homozygous), FVL+Prothrombin (heterozygous), Antithrombin III, APLS Assessment/Plan: Kiera Bello is a 21 y.o. POD # 1 s/p PLTCS 2/2 Early Gestational Age and closed cervix at time of recommended delivery Care - Doing well, VSS - Male in NICU - both, breast and bottle feeding - Contraception: Per Private Attending - Encourage ambulation and use of incentive spirometer - D/C eddy catheter and saline lock IV on POD #1 - Postop Hb 12.9 - VTE Prophylaxis: SCD's, lovenox held until deemed stable to start PreEwSF - Transferred from [place] for persistent severe range BP's, BROWN, and N/V x3 days - Started on magnesium sulfate for seizure ppx and neuroprotection and MFM recommended delivery - Trending CBC, CMP, and Magnesium every 6 hours - Magnesium sulfate currently at decreased rate of 0.5g/hr due to TOMASA and has remained within a therapeutic range - BP's consistently low mild range - Continue procardia 30mg daily and consider increasing dose - Cr 1.09 and downtrending from 1.15 on admission - UOP low but adequate overnight, currently about 50cc/hr - Eddy in place to better measure UOP until it improves - Currently asymptomatic - C3/C4 wnl, LUCIA and anti-DNA antibody still pending - Continue daily weights, currently stable Disposition: Continue current care Based on my clinical assessment, this patient is safe for self discharge (does not need transport by wheelchair) if she so chooses. Provider's Name: MD Edyta Luciano MD 04/13/2022, 6:37 AM Associated attestation - Estrella Boyd MD - 04/13/2022 12:51 PM EST Hospital Care (Independent): I independently saw and evaluated the patient. I agree with the findings and plan of care as documented in the resident's note. POD#1 from pLTCS. Doing well meeting milestones. PreEwSF: BP normal to low mild range on Procardia 30mg XL daily. Cr improving to 1.01 from 1.15 on admission. UOP just adequate. Ok for eddy removal. Slight AST elevated to 50. Continue lab trend. Mag on until 1844 tonight. Will start lovenox in the AM due to TOMASA - improving. Spinner Continuous PreEwSF symptoms. Plan DC home POD#3 or 4. --- Total time spent with the patient was 15 minutes, of which greater than 50% of the time was spent counseling and coordinating care. Pt up to bathroom w/ assist first time after c/section. Pericare taught and completed. Jessica rinse bottle given. I Returned to bed w/o incident. Ambulation a little unsteady and pt tolerated activity well. Pt instructed to call out for assistance if she needs up. Eddy catheter still in place to monitor urine output. Consult by Neonatology Request by OB: Dr. Mclaughlin Reason for Consult: 29 week gestation, imminent delivery Maternal History and current problem: PreE with severe features, elevated urine creatinine Significant history: preE, threatened miscarriage in early /vaginal bleeding Medications: Betamethasone, magnesium, procardia Betamethasone given: yes, one dose at 11:30 am 04/12/22 Labs: Blood type: A+ Antibody: neg GBS: unknown Hepatitis B ant: neg RPR: NR Rubella: immune HIV: neg Hepatitis C: neg GC/CT: neg HSV history: nothing documented CF: unknown Glucose challenge test: passed, one hour Present for Consult: Mother, father, Maya Chsameer CAMACHO, and Barb Diaz APRN Baby Sex: male Baby Name: Stevan US findings: 1st trimester dating EDC by: ultrasound EFW: 1187 grams Any known anomalies: no I discussed: Survival statistics Delivery room management: Delayed cord clamping, possible need for CPAP, Oxygen, intubation and surfactant. IV access, possible need for advanced resuscitation, possible need for umbilical lines. Baby is a full resuscitation. Respiratory distress syndrome Feeding with NG tube and benefit of MBM. Mom plans on providing MBM. Feeding readiness and growth expectations Apnea of prematurity and caffeine Heart Murmur: PDA Neurodevelopmental Outcome and Risk: IVH Physiologic criteria for discharge and timing of discharge estimate from NICU Potential need for transfer to [facility] if needs esclation of care, based on a variety of factors. Handouts given. No further questions. A/P: Patient is a 21 Year old At 29 Weeks 2 Days by ultrasound With 1. Current Management per OB 2. NICU to attend delivery 3. Call NICU if further questions. Maya Mahoney APRN-JANICE Peck CNP documented in this encounter [facility] [place] 04-14-2022 Obstetrics Note Follow up visit with patient. Reviewed pumping process. Observed pump session and flange 22.5 assessed. Reassured her of the process of milk stimulation, colostrum,transitional milk and mature milk. Discussed breast drainage once breasts fill in the next few days. Encouraged her to ask NICU for a rental pump at discharge and assistance with personal pump when she is ready for that. [facility] 04-14-2022 Miscellaneous Notes Follow up visit with patient. Reviewed pumping process. Observed pump session and flange 22.5 assessed. Reassured her of the process of milk stimulation, colostrum,transitional milk and mature milk. Discussed breast drainage once breasts fill in the next few days. Encouraged her to ask NICU for a rental pump at discharge and assistance with personal pump when she is ready for that. The patient is Moderately Stable - Low risk of patient condition declining or worsening The clinical goals for the shift include Walk down with spouse to visit baby in NICU-goal met Problem: Goal: Experiences normal course Outcome: Progressing Goal: Appropriate maternal - bonding Outcome: Progressing Goal: Establishment of feeding pattern Outcome: Progressing Goal: Incisions, wounds, or drain sites healing without S/S of infection Outcome: Progressing Problem: Pain - Adult Goal: Verbalizes/displays adequate comfort level or baseline comfort level Outcome: Progressing Flowsheets (Taken 04/13/2022 1936) Verbalizes/displays adequate comfort level or baseline comfort level: Encourage patient to monitor pain and request assistance Assess pain using appropriate pain scale Problem: Infection - Adult Goal: Absence of infection at discharge Outcome: Progressing Goal: Absence of infection during hospitalization Outcome: Progressing Goal: Absence of fever/infection during anticipated neutropenic period Outcome: Progressing Problem: Safety - Adult Goal: Free from fall injury Outcome: Progressing Flowsheets (Taken 04/13/20221936) Free from fall injury: Instruct family/caregiver on patient safety Problem: Discharge Planning Goal: Discharge to home or other facility with appropriate resources Outcome: Progressing Breast pump use indicated for this pt. Due to: infant in [facility] and 29 weeks Hospital breast pump, supplies kit, swabs and colostrum collectors provided and set up for patient at the bedside. Instruction given on pump operation, settings, technique and frequency/duration. Return demonstration given by patient. Observation of pumping session and flange fitting done. Flange size 22.5 mm. Mom instructed to double pump every 2-3 hours for 8-10 times per day with at least one pump session between 12 and 6 AM. Suction to be set for comfort but recommend between 20-60%. Reassured patient that it is normal to not collect any significant amounts of breast milk in the first days of pumping, but consistent pumping is important and typically results in increased milk production. Discussed projected amounts and daily goals. Reviewed breast massage and hand expression for increasing milk production. Reviewed colostrum collectors and swabs- how to use and collect colostrum and label swabs/syringes. Breast milk storage guidelines reviewed. Cleaning of pump parts reviewed and basin, soap and clean towels provided for this purpose. Encouraged skin to skin as soon as baby's condition is stable. Discussed plans for home electric breast pump. All questions answered. Will continue to monitor, encourage and support patient. Needs rental pump for home- will speak to [facility] about rental home pump 21 year old admitted for preeclampsia at 29/2 weeks gestational age. 1 Para 0. delivery. in NICU. Patient is independent and has insurance. She is prepared with her baby supplies. Denies any needs for housing, transportation or food. Discussion on the A. B. C's of safe sleep. Always place your baby on his or her back to sleep, use a firm sleep surface and your baby should not sleep in an adult bed, on a couch or chair. Keep soft objects, toys and loose bedding out of your baby's sleep area. Reviewed post depression. It is common to have blues. This is a normal response to many of the hormonal changes, stress and lack of sleep that go with raising a and physically recovering from the . Don't hesitate to talk to your provider with any concerns. There are resources in your home going booklet. To help prevent germs from spreading to you and your baby, make sure everyone washes their hands before they handle your . Avoid crowds, and keep infant away from sick people, anyone who is sick with a cough or fever, including family members. To be discharged to home. Denies any concerns at this time. The patient is Moderately Stable - Low risk of patient condition declining or worsening The clinical goals for the shift include Vitals WDL- goal not met b/p remains elevated. Problem: Goal: Experiences normal course Outcome: Progressing Goal: Appropriate maternal - bonding Outcome: Progressing Goal: Establishment of feeding pattern Outcome: Progressing Goal: Incisions, wounds, or drain sites healing without S/S of infection Outcome: Progressing Problem: Pain - Adult Goal: Verbalizes/displays adequate comfort level or baseline comfort level Outcome: Progressing Problem: Infection - Adult Goal: Absence of infection at discharge Outcome: Progressing Goal: Absence of infection during hospitalization Outcome: Progressing Goal: Absence of fever/infection during anticipated neutropenic period Outcome: Progressing Problem: Safety - Adult Goal: Free from fall injury Outcome: Progressing Problem: Discharge Planning Goal: Discharge to home or other facility with appropriate resources Outcome: Progressing Images from the original note were not included. Safety Huddle Note Kiera Bello at 29w2d admitted as a transport for IOL-PreEwSF. Due to early gestation and closed cervix, recommendation is to proceed with PCD. Bps are currently controlled and patient asymptomatic along with cat I FHT so is unscheduled but not emergent. Safety huddle performed with charge manager, patient's primary RN, residents, attending, NICU staff and OB anesthesia in attendance. Decision made to proceed with unscheduled PCD at [address] Harris and hide buffer are available. All in agreement. Harris Beltre DO 04/12/2022 5:30 PM documented in this encounter [facility] [place] 04-14-2022 Plan of care note The patient is Moderately Stable - Low risk of patient condition declining or worsening The clinical goals for the shift include Walk down with spouse to visit baby in NICU-goal met Problem: Goal: Experiences normal course Outcome: Progressing Goal: Appropriate maternal - bonding Outcome: Progressing Goal: Establishment of feeding pattern Outcome: Progressing Goal: Incisions, wounds, or drain sites healing without S/S of infection Outcome: Progressing Problem: Pain - Adult Goal: Verbalizes/displays adequate comfort level or baseline comfort level Outcome: Progressing Flowsheets (Taken 04/13/20221936) Verbalizes/displays adequate comfort level or baseline comfort level: Encourage patient to monitor pain and request assistance Assess pain using appropriate pain scale Problem: Infection - Adult Goal: Absence of infection at discharge Outcome: Progressing Goal: Absence of infection during hospitalization Outcome: Progressing Goal: Absence of fever/infection during anticipated neutropenic period Outcome: Progressing Problem: Safety - Adult Goal: Free from fall injury Outcome: Progressing Flowsheets (Taken 04/13/20221936) Free from fall injury: Instruct family/caregiver on patient safety Problem: Discharge Planning Goal: Discharge to home or other facility with appropriate resources Outcome: Progressing [facility] [place] 04-13-2022 Obstetrics Note Breast pump use indicated for this pt. Due to: in [facility] and 29 weeks Hospital breast pump, supplies kit, swabs and colostrum collectors provided and set up for patient at the bedside. Instruction given on pump operation, settings, technique and frequency/duration. Return demonstration given by patient. Observation of pumping session and flange fitting done. Flange size 22.5 mm. Mom instructed to double pump every 2-3 hours for 8-10 times per day with at least one pump session between 12 and 6 AM. Suction to be set for comfort but recommend between 20-60%. Reassured patient that it is normal to not collect any significant amounts of breast milk in the first days of pumping, but consistent pumping is important and typically results in increased milk production. Discussed projected amounts and daily goals. Reviewed breast massage and hand expression for increasing milk production. Reviewed colostrum collectors and swabs- how to use and collect colostrum and label swabs/syringes. Breast milk storage guidelines reviewed. Cleaning of pump parts reviewed and basin, soap and clean towels provided for this purpose. Encouraged skin to skin as soon as baby's condition is stable. Discussed plans for home electric breast pump. All questions answered. Will continue to monitor, encourage and support patient. Needs rental pump for home- will speak to [facility] about rental home pump [facility] 04-13-2022 Note Formatting of this n ote might be different from the original. 21 year old admitted for preeclampsia at 29/2 weeks gestational age. 1 Para 0. delivery. in NICU. Patient is independent and has insurance. She is prepared with her baby supplies. Denies any needs for housing, transportation or food. Discussion on the A. B. C's of safe sleep. Always place your baby on his or her back to sleep, use a firm sleep surface and your baby should not sleep in an adult bed, on a couch or chair. Keep soft objects, toys and loose bedding out of your baby's sleep area. Reviewed post depression. It is common to have blues. This is a normal response to many of the hormonal changes, stress and lack of sleep that go with raising a and physically recovering from the . Don't hesitate to talk to your provider with any concerns. There are resources in your home going booklet. To help prevent germs from spreading to you and your baby, make sure everyone washes their hands before they handle your . Avoid crowds, and keep away from sick people, anyone who is sick with a cough or fever, including family members. To be discharged to home. Denies any concerns at this time. [employer] [facility] 04-13-2022 Note Formatting of this n ote might be different from the original. 21 year old admitted for preeclampsia at 29/2 weeks gestational age. 1 Para 0. delivery. Infant in NICU. Patient is independent and has insurance. She is prepared with her baby supplies. Denies any needs for housing, transportation or food. Discussion on the A. B. C's of safe sleep. Always place your baby on his or her back to sleep, use a firm sleep surface and your baby should not sleep in an adult bed, on a couch or chair. Keep soft objects, toys and loose bedding out of your baby's sleep area. Reviewed post depression. It is common to have blues. This is a normal response to many of the hormonal changes, stress and lack of sleep that go with raising a and physically recovering from the . Don't hesitate to talk to your provider with any concerns. There are resources in your home going booklet. To help prevent germs from spreading to you and your baby, make sure everyone washes their hands before they handle your . Avoid crowds, and keep away from sick people, anyone who is sick with a cough or fever, including family members. To be discharged to home. Denies any concerns at this time. [employer] [facility] 04-13-2022 Plan of care note The patient is Moderately Stable - Low risk of patient condition declining or worsening The clinical goals for the shift include Vitals WDL- goal not met b/p remains elevated. Problem: Goal: Experiences normal course Outcome: Progressing Goal: Appropriate maternal - bonding Outcome: Progressing Goal: Establishment of infant feeding pattern Outcome: Progressing Goal: Incisions, wounds, or drain sites healing without S/S of infection Outcome: Progressing Problem: Pain - Adult Goal: Verbalizes/displays adequate comfort level or baseline comfort level Outcome: Progressing Problem: Infection - Adult Goal: Absence of infection at discharge Outcome: Progressing Goal: Absence of infection during hospitalization Outcome: Progressing Goal: Absence of fever/infection during anticipated neutropenic period Outcome: Progressing Problem: Safety - Adult Goal: Free from fall injury Outcome: Progressing Problem: Discharge Planning Goal: Discharge to home or other facility with appropriate resources Outcome: Progressing [facility] 04-12-2022 Note Patient: Kiera morrell Procedure Summary Date: 04/12/22 Room / Location: [facility] Labor and Delivery Anesthesia Start: 1804 Anesthesia Stop: 1929 Procedure: DELIVERY (Abdomen) Diagnosis: (Other (Add Comments)) Surgeons: Riya Harris DO Responsible Provider: Loyd Jamil MD Anesthesia Type: regional, spinal ASA Status: 2 - Emergent Anesthesia Type: regional, spinal Vitals Value Taken Time BP 121/79 04/12/221942 Temp 97 04/12/22 194 Pulse 76 04/12/221942 Resp 04/12/221942 SpO2 97 04/12/221942 Anesthesia Post Evaluation Patient location during evaluation: PACU Patient participation: complete - patient participated Level of consciousness: awake and alert Pain management: satisfactory to patient Airway patency: patent Dental Injury: no Cardiovascular status: acceptable, blood pressure returned to baseline and hemodynamically stable Respiratory status: acceptable and spontaneous ventilation Hydration status: euvolemic Nausea/Vomiting: controlled No notable events documented. Patient can be discharged once all PACU criteria has been met. [facility] 04-12-2022 Note Patient: Kiera morrell Procedure Summary Date: 04/12/22 Room / Location: [facility] Labor and Delivery Anesthesia Start: 1804 Anesthesia Stop: 1929 Procedure: DELIVERY (Abdomen) Diagnosis: (Other (Add Comments)) Surgeons: Riya Harris DO Responsible Provider: Loyd Jamil MD Anesthesia Type: regional, spinal ASA Status: 2 - Emergent Anesthesia Type: regional, spinal Vitals Value Taken Time BP 121/79 04/12/221940 Temp 97 04/12/22 194 Pulse 76 04/12/22 194 Resp 04/12/22 194 SpO2 97 04/12/221940 Anesthesia Post Evaluation Patient location during evaluation: PACU Patient participation: complete - patient participated Level of consciousness: awake and alert Pain management: satisfactory to patient Multimodal analgesia pain management approach Airway patency: patent Two or more strategies used to mitigate risk of obstructive sleep apnea Cardiovascular status: acceptable and hemodynamically stable Respiratory status: acceptable Hydration status: acceptable No notable events documented. MIPS #430 PONV Patient received an inhalational anesthetic (4554F) Patient exhibits three or more risk factors for PONV (4556F) Patient received at leaset 2 prophylactic Rx PONV anti-emtic agents of different classes preop and/or intraop (G9775) MIPS # 424 Perioperative Temperature Management Anesthesia time was 60 minutes or longer (4255F) Anesthesai administered was General (inhalational or TIVA) or Neuraxial block (X0424) At least one body temperature greater than 95.8F/35.5C achieved within the 30 mins immediately prior to or the 15 minutes immediately following anesthesia end time (G9771) MIPS #404 Anesthesiology Smoking Abstinence The patient is not a current smoker (e.g. cigarette, cigar, pipe, e-cigarette/vaping/marijuana) I completed my handoff to the receiving clinician during which we: 1. Identified the patient 2. Identified the responsible provider 3. Reviewed the pertinent medical history 4. Discussed the surgical course 5. Reviewed intra-op anesthesia management and issues during anesthesia 6. Set expectations for post-procedure period 7. Allowed opportunity for questions and acknowledgement of understanding. [facility] 04-12-2022 Note Peripheral Block Time Out: 04/12/2022 7:15 PM Patient location during procedure: Procedural Start time: 04/12/2022 7:16 PM End time: 04/12/2022 7:26 PM Reason for block: at surgeon's request and post-op pain management Staffing Performed: EVENT SALES MANAGER Anesthesiologist: Loyd Jamil MD Resident/EVENT SALES MANAGER: JANICE Lela CRNA Preanesthetic Checklist Completed: patient identified, IV checked, site marked, risks and benefits discussed, surgical consent, monitors and equipment checked, pre-op evaluation and timeout performed Region: [place] Primary: TAP (60ml of Bupivacaine 0.375% with dexamethasone 0.01% with epinephrine 1:200,000 divided evenly bilaterally) Peripheral Block Patient position: supine Prep: ChloraPrep Patient monitoring: heart rate, dye expert and continuous pulse ox O2: Room air Laterality: bilateral Injection technique: single-shot Guidance: ultrasound guided -image retained in chart, tip of the needle identified by ultraound during injection. Needle Needle: 21G X 110 mm Additional Notes 04/12/2022 7:16 PM Assessment Injection assessment: negative aspiration for heme, no paresthesia on injection, incremental injection and local visualized surrounding nerve on ultrasound Paresthesia pain: none Heart rate change: no Slow fractionated injection: yes Required Documentation: Relevant anatomy identified (Nerves, Vessels, Muscles), Negative for blood on aspiration, Local anesthetic injected incrementally with intermittent aspiration every 5 mL, No EKG changes noted, No symptoms of toxicity, Local anesthetic spread visualized around nerves or plane., Normal resistance with injection, No paresthesias reported by patient during injection and Local anesthetic injected without difficultyMedications iaiKFTODasgue-gachropvcwh-saczavyrg ne (TAP) syringe - Transabdominal Plane 40 mL - 04/12/2022 7:16:00 PM [facility] 04-12-2022 Note Department of Obstet rics and Gynecology Delivery Discharge Summary Admission on 04/12/2022 3:09 PM Hospital course: 29w2d transport from [place] for severe range BP, headache and creatinine noted to be 1.1. S/p BMZ x1. On magnesium sulfate. By primary csection, a boy was delivered [see Notes for details]. course & complications: - Uncomplicated Surgical Operations & Procedures: Date of delivery: 04/12/22 Procedure: : Low Transverse Anesthesia: Spinal anesthesia and TAP block Laceration(s): n/a Delivery Complications: none EBL: 500 mL Pertinent Findings & Procedures: Information for the patient's : Fritz Bello [[id number]] male 1200 g (2 lb 10.3 oz) Apgars: Information for the patient's : BenFritz [[id number]] : Infant: Boy; circumcision not done, baby in NICU Blood Type/Rh: A Antibody Screen: No results found for: LABANTI Rubella: No results found for: RUBELLAIGG Contraception: IUD: Paragard : and Bottle feeding: Breast milk and Formula VTE Prophylaxis: Prophylactic Dosing until Discharge Meds at Discharge: Medication List START taking these medications docusate sodium 100 MG capsule Commonly known as: Colace Take 1 capsule (100 mg) by mouth 2 times daily as needed for constipation for up to 10 days. FeroSul 325 (65 Fe) MG tablet Generic drug: ferrous sulfate Take 1 tablet (325 mg) by mouth in the morning and 1 tablet (325 mg) in the evening. Take with meals. NIFEdipine XL 30 MG 24 hr tablet Commonly known as: Procardia XL Take 2 tablets (60 mg) by mouth daily. Do not crush, chew, or split. Do not start before April 16, 2022. Start taking on: April 16, 2022 oxyCODONE 5 MG immediate release tablet Commonly known as: Roxicodone Take 1 tablet (5 mg) by mouth every 6 hours as needed for moderate pain (4-6) for up to 5 days. CONTINUE taking these medications 1 PO Where to Get Your Medications These medications were sent to [facility] [address] [place] [address] Hours: Monday to Monday 10 am to 6 pm docusate sodium 100 MG capsule FeroSul 325 (65 Fe) MG tablet NIFEdipine XL 30 MG 24 hr tablet oxyCODONE 5 MG immediate release tablet Activity: Activity as tolerated Diet: Regular diet Follow-up Appointments: - visit - Incision check - Blood pressure check If a patient meets criteria for hypertension, make sure the following are done prior to discharge: [] Order a blood pressure kit through [facility] (or the patient's own pharmacy on the weekend) [] Order the blood pressure log through [facility] [x] Place an office visit or telephone encounter for a 3-to-5-day blood pressure check. [] Include blood pressure dot phrase (.sumobhypertension) in discharge instructions [] Check here if the patient does NOT meet criteria for hypertension Condition on discharge: Stable Discharge to: Home Discharge date: 04/15/22 Discharge Dx: S/p PLTCS PreEwSF TOMASA IUGR Preeclampsia, severe, third trimester [O14.13] Severe pre-eclampsia in third trimester [O14.13] Patient Active Problem List Diagnosis Preeclampsia, severe, third trimester Severe pre-eclampsia in third trimester Comments: Home care, Follow-up care and control were reviewed. Signs and symptoms of mastitis and Depression were reviewed. The patient is to notify her physician if any of these occur. [facility] 04-12-2022 Note Spinal Block Time Out: 04/12/2022 6:08 PM Patient location during procedure: OB Start time: 04/12/2022 6:09 PM End time: 04/12/2022 6:20 PM Reason for block: procedure for pain Staffing Performed: EVENT SALES MANAGER Anesthesiologist: Loyd Jamil MD Resident/EVENT SALES MANAGER: Kady Elizabeth APRN - THOMAS Spinal Block Patient position: sitting Prep: ChloraPrep Sterility prep: drape Approach: midline Location: L3-4 Injection technique: single-shot Needle Needle type: pencil-tip Needle gauge: 25 G Assessment Sensory level: T4 Number of attempts: 1 Procedure assessment: patient tolerated procedure well with no immediate complications [facility] 04-12-2022 Hospital Discharge instructions Riya Harris DO - 04/12/2022 7:20 PM EST Images from the original note were not included. After Your Delivery (the Period): Your Care Instructions Congratulations on the of your baby. Like , the period can be a time of excitement, cherelle, and exhaustion. You may look at your wondrous little baby and feel happy. You may also be overwhelmed by your new sleep hours and new responsibilities. In these first weeks after delivery, try to take good care of yourself. It may take 4 to 6 weeks to feel like yourself again, and possibly longer if you had a . You will likely feel very tired for several weeks. Your days will be full of ups and downs, but lots of cherelle as well. FOLLOW-UP: Your follow-up care is a ashraf part of your treatment and safety. Follow-up with your OB doctor in 4-6 weeks or as specified by your physician. Be sure to make and go to all appointments, and call your doctor if you are having problems. It's also a good idea to know your test results and keep a list of the medicines you take. BLEEDING Vaginal bleeding will decrease in amount over the next few weeks but may be present for as long as 8 weeks after delivery. Bleeding may package pick up and then decrease again around 7-10 days . Use pads instead of tampons for the bloody flow that may last as long as 2 weeks. You will notice that as your activity increases, your flow may increase. Call your doctor if you are saturating one maxi pad in an hour & passing large clots for 3 hours or more. ACTIVITY NO SEXUAL activity for 6 weeks or until advised by your doctor. Nothing in the vagina for 6 weeks: e.g.) intercourse, tampons, or douching. Showering is okay; NO tub baths, swimming, or hot tubs for 6 weeks. Gradually increase your activity. Resume exercise regimen only after advice by your doctor. Avoid lifting anything heavier than your baby or a gallon of milk for six weeks. Avoid driving 1 week for vaginal delivery and 2 weeks for section, or longer if you are on prescription pain medicine unless otherwise instructed by your doctor. Rise slowly from a lying to sitting and then a standing position. Climb stairs carefully. Use caution when carrying your baby up and down the stairs. You may feel tired or have a lack of energy. Nap when baby naps to catch up on sleep. You may continue your vitamin to replenish nutrients post delivery. EMOTIONS You may feel costello, sad, teary, & overwhelmed for the first 2 weeks ; however, feelings of post depression may occur any time within the first year after delivery. Contact your OB provider if you feel you may be showing signs of depression, or have thoughts of harming yourself or your . If infant will not stop crying, contact another adult for help or place in their crib on their back and take a break. NEVER shake your . WOUND CARE For Vaginal Delivery: Shower daily, and cleanse your perineum (bottom) with mild soap from front to Back. Use the plastic squirt bottle until bleeding stops each time you use the restroom instead of wiping with toilet paper. Ease soreness of hemorrhoids and the area between your vagina and rectum with ice compresses or witch doug pads. If used, stitches will dissolve in 4-6 weeks on their own. You may use a sitz bath or soak in a clean tub with drain open and water running for comfort. Kegel exercises will help restore bladder control. To do these tighten your muscles as if you were stopping your urine flow. Hold for a few seconds and then relax. Do these throughout the day. For Section Delivery: Keep your incision clean and dry. If you had steri-strips you may remove these once they start peeling off. If you have easton they need to be removed 3-10 days after delivery. If you have steri-strips, remove after 10-14 days. Do not wear clothing that irritates the incision line. If your incision in in a crease that is not dry, use a hair-dryer to dry the area 3 times a day. If you develop fever, shaking chills, redness, swelling, drainage or discharge from your wound, or if your wound looks like it's coming apart call your doctor immediately. For Tubal Ligation: Remove dressing 3 days after being discharged from the hospital. If you develop fever, shaking chills, redness, swelling, drainage or discharge from your wound, or if your wound looks like it's coming apart call your doctor immediately. BREAST CARE If you develop a warm, red, tender area on your breast or develop a fever contact your doctor. For moms: If you become engorged, feeding may be more difficult or painful for 1-2 days. You may find it helpful to hand express some milk so that the infant can latch on more easily or ease soreness with wet, warm washcloths. While , continue to take your vitamins as directed by your doctor. For non- moms: You may apply ice packs to your breasts over you bra for twenty minutes at a time for comfort. Cabbage leaves may be applied to breasts, replace when wilted. Avoid stimulation to your breasts, when showering allow the water to strike your back not your breasts. Do not express milk or your body will make more. Wear a good fitting bra until your milk dries, such as a sports bra. DIET & CONSTIPATION Eat a well balanced diet focusing on foods high in fiber and protein such as: whole grain cereals and breads, fruits and vegetables and legumes (eg, beans, lentils) Drink 8-10 glasses of fluids daily, especially water. To avoid constipation you may take a mild kwew-ion-skwztwu stool softener (such as colace) as recommended by your doctor. SWELLING Try to keep your legs elevated when you are sitting or lying down. Stay hydrated and take walks. BABY Babies sleep safest on their back in a crib without bumpers, blankets or stuffed animals. DO NOT sleep with your baby in your bed or the couch. DO NOT expose baby to smoke, this can increase risks of asthma and sudden infant syndrome. If you or someone around baby smokes have them change their shirt and wash any facial hair before holding baby. Do not smoke inside the house and change the ventilation filters in the house before bringing baby home. WHEN TO CALL THE DOCTOR Signs of infection, including fever (101oF) and chills. Increased bleeding: soaking more than one sanitary pad an hour. Wounds that become red, swollen or drain pus. Vaginal discharge that smells foul. Headaches that lasts several hours and will not go away even with headache medications. Visual changes that last several hours and will not go away. Significant pain immediately below your rib cage. New pain, swelling, or tenderness in your legs Pain that you can't control with the medications you've been given. Pain, burning, urgency or frequency of urination, or persistent bleeding in the urine. Cough, shortness of breath, or chest pain. Depression, suicidal thoughts, or feelings of harming your baby. Breasts that are hot, red and accompanied by fever. Any cracking or bleeding from the nipple or areola (the dark-colored area of the breast). In case of an emergency, call 911 immediately. If you are Covid-19 positive or a Person Under Investigation (PUI) Unnpio-vz-ozmuv transmission of COVID-19 during is unlikely, but after a baby is susceptible to wmwyee-li-uaaayp spread. After your baby is born, your health care provider may recommend you not hold your baby and/or that you stay in a separate room from your baby until you get better. If you and your baby are not , wear a facemask at all times and wash your hands thoroughly before touching, holding or feeding your baby. Baby Care & Feeding has many benefits for you and your baby and is the best food for your baby. From what experts know so far, COVID-19 has not been found in breastmilk. Having a healthy adult who can assist with baby care until you get better is important, you may want to have a healthy adult feed your baby your expressed breast milk or formula if you chose to not breastfeed. You may use a breast pump to express your breast milk. Wear a face mask, wash your breasts, then wash your hands thoroughly before touching the breast pump and bottle parts. Clean all pump parts after each use. If you choose to breastfeed from your breast, wear a face mask, wash your breasts, wash your hands thoroughly before feeding your baby. These could be signs that your COVID-19 symptoms are worsening and you may need emergency care: You are severely dizzy or lightheaded. You are confused or can't think clearly. Your face and lips have a blue color. You are unable to respond to others or are very hard to wake up. Prevention steps for People with confirmed or suspected COVID-19 (including persons under investigation) who do not need to be hospitalized AND People with confirmed COVID-19 who were hospitalized and determined to be medically stable to go home Your healthcare provider and public health staff will evaluate whe ther you can be cared for at home. If it is determined that you do not need to be hospitalized and can be isolated at home, you will be monitored by staff from your local or state health department. You should follow the prevention steps below until a healthcare provider or local or state health department says you can return to your normal activities. Stay home except to get medical care People who are mildly ill with COVID-19 are able to isolate at home during their illness. You should restrict activities outside your home, except for getting medical care. Do not go to work, school, or public areas. Avoid using public transportation, ride-sharing, or taxis. Separate yourself from other people and animals in your home People: As much as possible, you should stay in a specific room and away from other people in your home. Also, you should use a separate bathroom, if available. Animals: You should restrict contact with pets and other animals while you are sick with COVID-19, just like you would around other people. Although there have not been reports of pets or other animals becoming sick with COVID-19, it is still recommended that people sick with COVID-19 limit contact with animals until more information is known about the virus. When possible, have another member of your household care for your animals while you are sick. If you are sick with COVID-19, avoid contact with your pet, including petting, snuggling, being kissed or licked, and sharing food. If you must care for your pet or be around animals while you are sick, wash your hands before and after you interact with pets and wear a facemask. Call ahead before visiting your doctor If you have a medical appointment, call the healthcare provider and tell them that you have or may have COVID-19. This will help the healthcare provider's office take steps to keep other people from getting infected or exposed. Wear a facemask You should wear a facemask when you are around other people (e.g., sharing a room or vehicle) or pets and before you enter a healthcare provider's office. If you are not able to wear a facemask (for example, because it causes trouble breathing), then people who live with you should not stay in the same room with you, or they should wear a facemask if they enter your room. Cover your coughs and sneezes Cover your mouth and nose with a tissue when you cough or sneeze. Throw used tissues in a lined trash can. Immediately wash your hands with soap and water for at least 20 seconds or, if soap and water are not available, clean your hands with an alcohol-based hand set up technician that contains at least 60% alcohol. Clean your hands often Wash your hands often with soap and water for at least 20 seconds, especially after blowing your nose, coughing, or sneezing; going to the bathroom; and before eating or preparing food. If soap and water are not readily available, use an alcohol-based hand set up technician with at least 60% alcohol, covering all surfaces of your hands and rubbing them together until they feel dry. Soap and water are the best option if hands are visibly dirty. Avoid touching your eyes, nose, and mouth with unwashed hands. Avoid sharing personal household items You should not share dishes, drinking glasses, cups, eating utensils, towels, or bedding with other people or pets in your home. After using these items, they should be washed thoroughly with soap and water. Clean all high-touch surfaces everyday High touch surfaces include counters, tabletops, doorknobs, bathroom fixtures, toilets, phones, keyboards, tablets, and bedside tables. Also, clean any surfaces that may have blood, stool, or body fluids on them. Use a household cleaning spray or wipe, according to the label instructions. Labels contain instructions for safe and effective use of the cleaning product including precautions you should take when applying the product, such as wearing gloves and making sure you have good ventilation during use of the product. Monitor your symptoms Seek prompt medical attention if your illness is worsening (e.g., difficulty breathing). Before seeking care, call your healthcare provider and tell them that you have, or are being evaluated for, COVID-19. Put on a facemask before you enter the facility. These steps will help the healthcare provider's office to keep other people in the office or waiting room from getting infected or exposed. Ask your healthcare provider to call the local or state health department. Persons who are placed under active monitoring or facilitated self-monitoring should follow instructions provided by their local health department or occupational health professionals, as appropriate. When working with your local health department check their available hours. If you have a medical emergency and need to call 911, notify the dispatch personnel that you have, or are being evaluated for COVID-19. If possible, put on a facemask before emergency medical services arrive. Discontinuing home isolation Patients with confirmed COVID-19 should remain under home isolation precautions until the risk of secondary transmission to others is thought to be low. The decision to discontinue home isolation precautions should be made on a svht-mf-syqm basis, in consultation with healthcare providers and state and local health departments. Information on COVID-19 for ALL patients Call your provider before your next appointment if you develop any of the following symptoms: fever, cough, fatigue, anorexia, shortness of breath, sputum production, and muscle pains. Headache, confusion, rhinorrhea, sore throat, hemoptysis, vomiting, and diarrhea have been reported but are less common. Some persons with COVID-19 have experienced gastrointestinal symptoms such as diarrhea and nausea prior to developing fever and lower respiratory tract signs and symptoms. Ways to [place] with Anxiety & Stress It is normal to feel anxious or worried about COVID-19. You might feel sad about canceling celebrations and staying away from family and friends. Keep in mind that most people do not get severely ill from COVID-19. It is important to have a plan in case you get sick to prevent spreading the disease to others including an Advanced Care Plan (communicating and documenting your desired health care plan with family and healthcare team). You can take care of yourself by: Taking a break from watching the news Take deep breaths, stretch or meditate Getting exercise, eating healthy foods, and drinking plenty of water Finding activities you can enjoy inside your home Staying in touch with your family and friends. Tell your partner, family, and friends how you are feeling. Advance Care Planning People with COVID-19 may have no symptoms, mild symptoms, such as fever, cough, and shortness of breath or they may have more severe illness, developing severe and fatal pneumonia. As a result, Advance Care Planning with attention to naming a health care decision maker (someone you trust to make healthcare decisions for you if you could not speak for yourself) and sharing other health care preferences is important BEFORE a possible health crisis. Please contact your Primary Care Provider to discuss Advance Care Planning. LEARNING ABOUT THE CORONAVIRUS (COVID-19): Coronavirus (COVID-19): Overview What is coronavirus (COVID-19)? The coronavirus disease (COVID-19) is caused by a virus. It is an illness that was first found in [facility], in February 2019. It has since spread worldwide. The virus can cause fever, cough, and trouble breathing. In severe cases, it can cause pneumonia and make it hard to breathe without help. It can cause . Coronaviruses are a large group of viruses. They cause the common cold. They also cause more serious illnesses like [place] respiratory syndrome (MERS) and severe acute respiratory syndrome (SARS). COVID-19 is caused by a novel coronavirus. That means it's a new type that has not been seen in people before. This virus spreads wztdai-eb-mdmgay through droplets from coughing and sneezing. It can also spread when you are close to someone who is infected. And it can spread when you touch something that has the virus on it, such as a doorknob or a tabletop. What can you do to protect yourself from coronavirus (COVID-19)? The best way to protect yourself from getting sick is to: Avoid areas where there is an outbreak. Avoid contact with people who may be infected. Wash your hands often with soap or alcohol-based hand sanitizers. Avoid crowds and try to stay at least 6 feet away from other people. Wash your hands often, especially after you cough or sneeze. Use soap and water, and scrub for at least 20 seconds. If soap and water aren't available, use an alcohol-based hand set up technician. Call 911 anytime you think you may need emergency care. For example, call if: You have severe trouble breathing. (You can't talk at all.) You have constant chest pain or pressure. You are severely dizzy or lightheaded. You are confused or can't think clearly. Your face and lips have a blue color. You pass out (lose consciousness) or are very hard to wake up. Call your doctor now if you develop symptoms such as: Shortness of breath. Fever. Cough. If you need to get care, call ahead to the doctor's office for instructions before you go. Make sure you wear a face mask, if you have one, to prevent exposing other people to the virus. Where can you get the latest information? The following health organizations are tracking and studying this virus. Their websites contain the most up-to-date information. You'll also learn what to do if you think you may have been exposed to the virus. U.[place]. Centers for Disease Control and Prevention (CDC): The CDC provides updated news about the disease and travel advice. The website also tells you how to prevent the spread of infection. www.cdc.gov World Health Organization (WHO): WHO offers information about the virus outbreaks. WHO also has travel advice. www.who.int Current as of: June 26, 2019 Content Version: 12.4 [employer]. Care instructions adapted under license by your healthcare professional. If you have questions about a medical condition or this instruction, always ask your healthcare professional. [employer] disclaims any warranty or liability for your use of this information. General Recommendations for Routine Cleaning and Disinfection of Households Community members can practice routine cleaning of frequently touched surfaces (for example: tables, doorknobs, light switches, handles, desks, toilets, faucets, sinks) with household rn review and EPA-registered disinfectants that are appropriate for the surface, following label instructions. Labels contain instructions for safe and effective use of the cleaning product including precautions you should take when applying the product, such as wearing gloves and making sure you have good ventilation during use of the product. These guidelines are focused on household settings and are meant for the general public. Cleaning refers to the removal of germs, dirt, and impurities from surfaces. Cleaning does not kill germs, but by removing them, it lowers their numbers and the risk of spreading infection. Disinfecting refers to using chemicals to kill germs on surfaces. This process does not necessarily clean dirty surfaces or remove germs, but by killing germs on a surface after cleaning, it can further lower the risk of spreading infection. General Recommendations for Cleaning and Disinfection of Households with People Isolated in Home Care - Confirmed or suspected COVID 19 Household members should educate themselves about COVID-19 symptoms and preventing the spread of COVID-19 in homes. Clean and disinfect high-touch surfaces daily in household common areas (e.g. tables, hard-backed chairs, doorknobs, light switches, remotes, handles, desks, toilets, sinks) In the bedroom/bathroom dedicated for an ill person: consider reducing cleaning frequency to as-needed (e.g., soiled items and surfaces) to avoid unnecessary contact with the ill person. As much as possible, an ill person should stay in a specific room and away from other people in their home. The caregiver can provide personal cleaning supplies for an ill person's room and bathroom, unless the room is occupied by child or another person for whom such supplies would not be appropriate. These supplies include tissues, paper towels, rn review and EPA-registered disinfectants (see list link at [facility] website). If a separate bathroom is not available, the bathroom should be cleaned and disinfected after each use by an ill person. If this is not possible, the caregiver should wait as long as practical after use by an ill person to clean and disinfect the high-touch surfaces. How to clean and disinfect: Hard Surfaces Wear disposable gloves when cleaning and disinfecting surfaces. Gloves should be discarded after each cleaning. If reusable gloves are used, those gloves should be dedicated for cleaning and disinfection of surfaces for COVID-19 and should not be used for other purposes. Consult the web development instructor's instructions for cleaning and disinfection products used. Clean hands immediately after gloves are removed. If surfaces are dirty, they should be cleaned using a detergent or soap and water prior to disinfection. For disinfection, diluted household bleach solutions, alcohol solutions with at least 70% alcohol, and most common EPA-registered household disinfectants should be effective. Diluted household bleach solutions can be used if appropriate for the surface. Follow web development instructor's instructions for application and proper ventilation. Check to ensure the product is not past its expiration date. Never mix household bleach with ammonia or any other cleanser. Unexpired household bleach will be effective against coronaviruses when properly diluted. Prepare a bleach solution by mixin tablespoons (1/3rd cup) bleach per gallon of water or 4 teaspoons bleach per quart of water Products with EPA-approved emerging viral pathogens [facility] iconexternal icon are expected to be effective against COVID-19 based on data for harder to kill viruses. Follow the web development instructor's instructions for all cleaning and disinfection products (e.g., concentration, application method and contact time, etc.). Soft (porous) surfaces such as carpeted floor, rugs, and drapes Remove visible contamination if present and clean with appropriate rn review indicated for use on these surfaces. After cleaning: Launder items as appropriate in accordance with the web development instructor's instructions. If possible, launder items using the warmest appropriate water setting for the items and dry items completely, or Clothing, towels, linens and other items that go in the laundry Wear disposable gloves when handling dirty laundry from an ill person and then discard after each use. If using reusable gloves, those gloves should be dedicated for cleaning and disinfection of surfaces for COVID-19 and should not be used for other household purposes. Clean hands immediately after gloves are removed. If no gloves are used when handling dirty laundry, be sure to wash hands afterwards. If possible, do not shake dirty laundry. This will minimize the possibility of dispersing virus through the air. Launder items as appropriate in accordance with the web development instructor's instructions. If possible, launder items using the warmest appropriate water setting for the items and dry items completely. Dirty laundry from an ill person can be washed with other people's items. Clean and disinfect clothes hampers according to guidance above for surfaces. If possible, consider placing a assembler handbags that is either disposable (can be thrown away) or can be laundered. CDC has a list of EPA approved cleaning products on their website - https://www.cdc.gov/coronavirus/201 9-ncov/community/home/cleaning-disi nfection.html https://www.[employer]/N awwd-Gsnygtovkgn-Efqsroij-Products- List.pdf Grocery Stores with delivery and package pick up services: [facility]: Free package pick up at locations Delivery is $12.95 a month Website - [employer] [place]: Coverstitch Binder $2.95 (1st order is free) Delivery is $14.95 Website - [employer] Keisha Dunn: supply chain engineer is free Delivery is $5.95 Website [employer]: supply chain engineer is $4.95 Delivery is $9.95 Website et[employer]ches [employer]: supply chain engineer is $4.95 Delivery is $9.95 [employer] Market: Can be ordered for delivery and package pick up with [employer] Website - [employer]: Free deliver for first 3 orders of $35 or more Website - [email or web address] Will deliver from [facility], [employer], [employer], and [employer]. Annual membership is $99 Monthly membership is $14 documented in this encounter [facility] [place] 04-12-2022 Note Patient: Kiera morrell Procedure Information Date: 04/12/22 Procedure: Labor Analgesia Relevant Problems Cardio (+) Preeclampsia, severe, third trimester Clinical information reviewed: Tobacco Allergies Meds Med Hx Surg Hx Fam Hx Soc Hx Physical Exam Airway Mallampati: II TM distance: >3 FB Neck ROM: full Mouth Open: normalendotracheal tube not in place Cardiovascular Dental Pulmonary Abdominal Anesthesia Plan ASA 2 - emergent regional and spinal The patient is not a current smoker. Anesthetic plan and risks discussed with patient. Use of blood products discussed with who consented to blood products. patient is NPO Additional Equipment Requests [facility] 04-12-2022 Note Attestation signed by Gia Mclaughlin MD at 04/12/2022 7:09 PM I independently saw and evaluated the patient. I agree with the findings and plan of care as documented in the resident's note. Transport from [place] after severe range BP, headache and creatinine noted to be 1.1 21 yr old at 29 2/7 GA with the following: Pre-eclampsia with SF, severe range BP, headache and creatinine of 1.1 with significant proteinuria, confirmed on her transport no history of renal disease and no concerns for feeling unwell with the exception of a 4 day headache. No history of SLE FGR based upon AC with elevated UAD discussed today with the couple Today we talked about pre-eclampsia, its clinical manifestations and that the hallmark is typically elevated BP, it is progressive and unpredictable in its clinical course and with conservative expectant management our goal is to prolong the to obtain steroids and if possible to 34 weeks, but it is with increased maternal risks. I discussed my concerns with the couple given her elevated creatinine of 1.1 and the possibility of worsening maternal disease given that this is found today on two occasions at separate labs. This value according to ACOG practice bulletin is not a candidate for expectant management given the concerns for worsening disease, and I discussed my concerns with the couple given her unfavorable cervix along with this value that a IOL would also not be in her best interest as it may prolong her disease and worsen her maternal health. The rationale behind magnesium IV was addressed as maternal seizure prophylaxis, but this is also renally cleared and need to follow this closely. I would recommend given this creatinine value along with her unfavorable cervix delivery as soon as possible and given her current GA this would be a primary . The couple agrees. The patient voices understanding and understands ongoing inpatient management now with close follow up for diuresis. NICU has seen the patient, and we talked about the R/B/A of balancing the risks for pre-eclampsia with SF and her ongoing maternal risk with the risks of prematurity. She received one dose of steroids, and given the concern for maternal instability and this creatinine value I do not recommend expectant management at this time. Dr. Harris aware and will allow the team performing the to obtain surgical consent. Continued every 6 hour mag/CMP with CBC values are recommended. Currently she received 2gm bolus given subtherapeutic value and will continued .5gm/hour. If creatinine is > 1.5 will obtain nephro consult. Avoid nephro toxic drugs and watch for concerns related to non-cardiogenic pulmonary edema. Will also obtain C3/C4 and DS DNA, doubt SLE, but given her current degree of proteinuria will plan to work this up as well to ensure no other concerns, but given her above would not expectantly manage at this time. Procardia XL for the to maintain BP < 150/100. She did receive IV hydralazine prior to transport I spent 60 minutes in the visit today on the floor reviewing the chart, discussing the case with the residency staff and nursing Gia Mclaughlin MD Department of Maternal Medicine History and Physical CHIEF COMPLAINT: transferred from OSH for PreEwSF HISTORY OF PRESENT ILLNESS: The patient is a 21 y.o. female at 29w2d. OB History 1 Para 0 Term 0 AB Living 0 SAB IAB Ectopic Multiple Live Births 0 Patient presents with a chief complaint as above and is being admitted for PreEwSF. Patient presented to OSH today with complaints of occipital headache and n/v for the past 3 days. At OSH, she was found to have persistent severe range blood pressures requiring acute treatment with IV hydralazine x1 then labetalol 100mg PO. She was started on magnesium sulfate with a 6g mag bolus. She was then found to have an elevated creatinine so magnesium maintenance rate was decreased to 0.5g/hr. She was given fioricet for her headache and states she no longer has a headache. Reports having a history of migraines as a child but not recently. Denies any history of HTN in the past. She received BMZx1 at 1125 today. Upon arrival to OB triage, patient is asymptomatic and BP is low mild range. Magnesium sulfate is running. Transport: Yes from [place] Prior Hospitalizations: No Estimated Due Date: Estimated Date of Delivery: 06/26/22 CARE: Complications: PreEwSF PAST OB HISTORY: OB History 1 Para 0 Term 0 AB Living 0 SAB IAB Ectopic Multiple Live Births 0 Detailed OB Histor (more content not included)... [facility] 04-12-2022 Note Formatting of this n ote might be different from the original. Images from the original note were not included. Safety Huddle Note Kiera Bello at 29w2d admitted as a transport for IOL-PreEwSF. Due to early gestation and closed cervix, recommendation is to proceed with PCD. Bps are currently controlled and patient asymptomatic along with cat I FHT so is unscheduled but not emergent. Safety huddle performed with charge manager, patient's primary RN, residents, attending, NICU staff and OB anesthesia in attendance. Decision made to proceed with unscheduled PCD at [address] Harris and hide buffer are available. All in agreement. Harris Beltre DO 04/12/2022 5:30 PM [facility] 04-12-2022 Note Formatting of this n ote might be different from the original. Images from the original note were not included. Safety Huddle Note Kiera Bello at 29w2d admitted as a transport for IOL-PreEwSF. Due to early gestation and closed cervix, recommendation is to proceed with PCD. Bps are currently controlled and patient asymptomatic along with cat I FHT so is unscheduled but not emergent. Safety huddle performed with charge manager, patient's primary RN, residents, attending, NICU staff and OB anesthesia in attendance. Decision made to proceed with unscheduled PCD at [address] Harris and hide buffer are available. All in agreement. Harris Beltre DO 04/12/2022 5:30 PM [facility] 04-12-2022 History and physical note Images from the original note were not included. Department of Maternal Medicine History and Physical CHIEF COMPLAINT: transferred from OSH for PreEwSF HISTORY OF PRESENT ILLNESS: The patient is a 21 y.o. female at 29w2d. OB History 1 Para 0 Term 0 AB Living 0 SAB IAB Ectopic Multiple Live Births 0 Patient presents with a chief complaint as above and is being admitted for PreEwSF. Patient presented to OSH today with complaints of occipital headache and n/v for the past 3 days. At OSH, she was found to have persistent severe range blood pressures requiring acute treatment with IV hydralazine x1 then labetalol 100mg PO. She was started on magnesium sulfate with a 6g mag bolus. She was then found to have an elevated creatinine so magnesium maintenance rate was decreased to 0.5g/hr. She was given fioricet for her headache and states she no longer has a headache. Reports having a history of migraines as a child but not recently. Denies any history of HTN in the past. She received BMZx1 at 1125 today. Upon arrival to OB triage, patient is asymptomatic and BP is low mild range. Magnesium sulfate is running. Transport: Yes from [place] Prior Hospitalizations: No Estimated Due Date: Estimated Date of Delivery: 06/26/22 CARE: Complications: PreEwSF PAST OB HISTORY: OB History 1 Para 0 Term 0 AB Living 0 SAB IAB Ectopic Multiple Live Births 0 Detailed OB History Current Past Medical History: History reviewed. No pertinent past medical history. Past Surgical History: Past Surgical History: Procedure Laterality Date TOE SURGERY WISDOM TOOTH EXTRACTION Allergies: Patient has no known allergies. Social History: Social History Socioeconomic History Marital status: Spouse name: Kelsey Arvizu Number of children: Not on file Years of education: Not on file Highest education level: High school graduate Occupational History Not on file Tobacco Use Smoking status: Never Passive exposure: Never Smokeless tobacco: Never Vaping Use Vaping Use: Former Quit date: 10/25/2021 Substances: Nicotine Devices: Refillable tank Substance and Sexual Activity Alcohol use: Not Currently Drug use: Not Currently Sexual activity: Yes Other Topics Concern Not on file Social History Narrative Not on file Social Determinants of Health Financial Resource Strain: Not on file Food Insecurity: Not on file Transportation Needs: Not on file Physical Activity: Not on file Stress: Not on file Social Connections: Not on file Intimate Partner Violence: Not on file Housing Stability: Not on file Family History: No family history on file. Medications Prior to Admission: Medications Prior to Admission Medication Sig Dispense Refill Last Dose MV-Min-Fe Fum-FA-DHA ( 1 PO) Take by mouth. 04/11/2022 at 0900 REVIEW OF SYSTEMS: Review of Systems Constitutional: Negative for chills and fever. Respiratory: Negative for shortness of breath. Cardiovascular: Negative for chest pain. Gastrointestinal: Negative for abdominal pain, constipation, diarrhea, nausea and vomiting. Genitourinary: Negative for vaginal bleeding. Neurological: Negative for syncope and headaches. Psychiatric/Behavioral: Negative for confusion. Labs: CBC, CMP, type and screen PHYSICAL EXAM: Vitals: 04/12/22 1523 Resp: 16 Temp: 36.7 C (98 F) TempSrc: Oral Weight: 75.3 kg Height: 1.6 m (5' 3) General appearance: awake, alert, cooperative, no apparent distress, and appears stated age Neurologic: Awake, alert, oriented to name, place and time. Lungs: No increased work of breathing, good air exchange Abdomen: Soft, non tender, gravid, consistent with her gestational age, no RUQ pain Sterile Speculum Exam: Membranes: Intact HSV Lesions: not applicable Cervix: c/t/h Contraction frequency: none Fetus: EFW: 1187g (33%) with AC 3% on US in triage Presentation: vtx by U/S Hx of PTL: [place] given previously: Yes , today at 1125 Cervical Length: n/a ASSESSMENT AND PLAN: LABOR DELIVERY ??? SCD's ONLY (labor through ambulation) SCD's PLUS Prophylactic Anticoagulation until discharge SCD's PLUS Prophylactic Anticoagulation for 6 weeks SCD's PLUS Therapeutic Anticoagulation for 6 weeks Vaginal Delivery [] BMI ? 40 kg/m2 Delivery All patients Vaginal Delivery [] BMI ? 40 kg/m2 AND [] Antepartum hospitalization ? 72 hours within the past month Delivery 1 Major Risk Factor: [] BMI ? 35 kg/m2 [] Low Risk Thrombophilia [] PPH+RBCs, IR, or operation [] Infection+Antibiotics [] Antepartum hospitalization ? 72 hours within the past month [] PMH: Sickle Cell, SLE, Cardiac Dz, Active IBD, Active Cancer, Nephrotic Syndrome OR 2 Minor Risk Factors: [] Multiple gestation [] Age > 40 [] PPH ? 1,000cc [] (+)FMH of VTE [] Smoker [] Preeclampsia [] BMI ? 40 kg/m2 AND [] Low Risk Thrombophilia OR ANY OF THE FOLLOWING: [] High Risk Thrombophilia without prior VTE [] Low Risk Thrombophilia with (+)FMH of VTE [] Any single prior VTE ANY OF THE FOLLOWING: [] Already on LMWH/UFH [] Multiple prior VTE [] High Risk Thrombophilia with prior VTE Low Risk Thrombophilia: FVL (heterozygous), Prothrombin (heterozygous), Protein C, Protein S High Risk Thrombophilia: FVL (homozygous), Prothrombin (homozygous), FVL+Prothrombin (heterozygous), Antithrombin III, APLS VTE Prophylaxis: will determine pending timing of delivery Admission: Admit to L&D FHR: Category 1, heart monitoring CEFM Labs: GBS not obtained GC/CT not obtained Urine obtained and reviewed FFN not obtained Type&Screen ordered, but not yet obtained Serum Labs CBC, CMP Consults: MFM Imaging: Indicated/ordered - Stat growth ultrasound Diet: NPO Testing: TBD Timing and Route of Delivery: expectant management contraindicated due to Cr > 1.1 Medications: Neuroprotection Indicated/ordered Tocolysis Not indicated Antibiotics Not indicated Steroids: Betamethasone - indicated and ordered PreEwSF - Presented to OSH with occipital migraine and n/v x3d - Persistent severe range Bps at OSH requiring IV hydralazine and labetalol 100mg PO x1 - Headache resolved with fioricet, otherwise asymptomatic and abdominal exam is benign - PreE labs at OSH significant for Cr 1.16 and UPC 10 - Bps normotensive to low mild range on arrival to [facility] - PreE labs repeated on arrival and Cr stable at 1.15 - Mag level checked due to elevated creatinine and mag running at 0.5g/hr and mag noted to be subtherapeutic at 4.7 - Will give 2g mag bolus now then continue to run at 0.5g/hr - Monitor labs q6hrs for mag level and creatinine - Will start procardia XL 30mg daily - Per ACOG, Cr >1.1 is a contraindication to expectant management. Dr. Mclaughlin went to bedside and discussed recommendation for delivery. Given closed cervix and early gestation, recommendation is for PCD. - Bps currently stable and patient asymptomatic. Will allow patient and her partner to talk to NICU prior to proceeding with . - Will plan to avoid NSAIDs and toradol in the state FGR - Diagnosed on stat growth US in triage - US (04/12): EFW 1187g (33%) with AC 3%, normal UAD IUP @ 29w2d - Dating by \ US per patient report - Cephalic on 04/12 - Monitoring: CEFM - Diet: NPO - BMZ x1 on 04/12 at 1125 - Magnesium sulfate for neuroprotection Discussed with Dr Mclaughlin, who agrees with plan. Harris Beltre, DO 04/12/2022, 3:30 PM Cc: Gia Mclaughlin MD Associated attestation - Gia Mclaughlin MD - 04/12/2022 7:09 PM EST I independently saw and evaluated the patient. I agree with the findings and plan of care as documented in the resident's note. Transport from [place] after severe range BP, headache and creatinine noted to be 1.1 21 yr old at 29 2/7 GA with the following: Pre-eclampsia with SF, severe range BP, headache and creatinine of 1.1 with significant proteinuria, confirmed on her transport no history of renal disease and no concerns for feeling unwell with the exception of a 4 day headache. No history of SLE FGR based upon AC with elevated UAD discussed today with the couple Today we talked about pre-eclampsia, its clinical manifestations and that the hallmark is typically elevated BP, it is progressive and unpredictable in its clinical course and with conservative expectant management our goal is to prolong the to obtain steroids and if possible to 34 weeks, but it is with increased maternal risks. I discussed my concerns with the couple given her elevated creatinine of 1.1 and the possibility of worsening maternal disease given that this is found today on two occasions at separate labs. This value according to ACOG practice bulletin is not a candidate for expectant management given the concerns for worsening disease, and I discussed my concerns with the couple given her unfavorable cervix along with this value that a IOL would also not be in her best interest as it may prolong her disease and worsen her maternal health. The rationale behind magnesium IV was addressed as maternal seizure prophylaxis, but this is also renally cleared and need to follow this closely. I would recommend given this creatinine value along with her unfavorable cervix delivery as soon as possible and given her current GA this would be a primary . The couple agrees. The patient voices understanding and understands ongoing inpatient management now with close follow up for diuresis. NICU has seen the patient, and we talked about the R/B/A of balancing the risks for pre-eclampsia with SF and her ongoing maternal risk with the risks of prematurity. She received one dose of steroids, and given the concern for maternal instability and this creatinine value I do not recommend expectant management at this time. Dr. Harris aware and will allow the team performing the to obtain surgical consent. Continued every 6 hour mag/CMP with CBC values are recommended. Currently she received 2gm bolus given subtherapeutic value and will continued .5gm/hour. If creatinine is > 1.5 will obtain nephro consult. Avoid nephro toxic drugs and watch for concerns related to non-cardiogenic pulmonary edema. Will also obtain C3/C4 and DS DNA, doubt SLE, but given her current degree of proteinuria will plan to work this up as well to ensure no other concerns, but given her above would not expectantly manage at this time. Procardia XL for the to maintain BP < 150/100. She did receive IV hydralazine prior to transport I spent 60 minutes in the visit today on the floor reviewing the chart, discussing the case with the residency staff and nursing Gia Mlcaughlin MD [facility] [place] 04-12-2022 History and physical note Images from the original note were not included. Department of Maternal Medicine History and Physical CHIEF COMPLAINT[facility]ISTORY OF PRESENT ILLNESS: The patient is a 21 y.o. female at 29w2d. OB History 1 Para 0 Term 0 AB Living 0 SAB IAB Ectopic Multiple Live Births 0 Patient presents with a chief complaint as above and is being admitted for PreEwSF. Patient presented to OSH today with complaints of occipital headache and n/v for the past 3 days. At OSH, she was found to have persistent severe range blood pressures requiring acute treatment with IV hydralazine x1 then labetalol 100mg PO. She was started on magnesium sulfate with a 6g mag bolus. She was then found to have an elevated creatinine so magnesium maintenance rate was decreased to 0.5g/hr. She was given fioricet for her headache and states she no longer has a headache. Reports having a history of migraines as a child but not recently. Denies any history of HTN in the past. She received BMZx1 at 1125 today. Upon arrival to OB triage, patient is asymptomatic and BP is low mild range. Magnesium sulfate is running. Transport: Yes from [place] Prior Hospitalizations: No Estimated Due Date: Estimated Date of Delivery: 06/26/22 CARE: Complications: PreEwSF PAST OB HISTORY: OB History 1 Para 0 Term 0 AB Living 0 SAB IAB Ectopic Multiple Live Births 0 Detailed OB History Current Past Medical History: History reviewed. No pertinent past medical history. Past Surgical History: Past Surgical History: Procedure Laterality Date TOE SURGERY WISDOM TOOTH EXTRACTION Allergies: Patient has no known allergies. Social History: Social History Socioeconomic History Marital status: Spouse name: Kelsey Arvizu Number of children: Not on file Years of education: Not on file Highest education level: High school graduate Occupational History Not on file Tobacco Use Smoking status: Never Passive exposure: Never Smokeless tobacco: Never Vaping Use Vaping Use: Former Quit date: 10/25/2021 Substances: Nicotine Devices: Refillable tank Substance and Sexual Activity Alcohol use: Not Currently Drug use: Not Currently Sexual activity: Yes Other Topics Concern Not on file Social History Narrative Not on file Social Determinants of Health Financial Resource Strain: Not on file Food Insecurity: Not on file Transportation Needs: Not on file Physical Activity: Not on file Stress: Not on file Social Connections: Not on file Intimate Partner Violence: Not on file Housing Stability: Not on file Family History: No family history on file. Medications Prior to Admission: Medications Prior to Admission Medication Sig Dispense Refill Last Dose MV-Min-Fe Fum-FA-DHA ( 1 PO) Take by mouth. 04/11/2022 at 0900 REVIEW OF SYSTEMS: Review of Systems Constitutional: Negative for chills and fever. Respiratory: Negative for shortness of breath. Cardiovascular: Negative for chest pain. Gastrointestinal: Negative for abdominal pain, constipation, diarrhea, nausea and vomiting. Genitourinary: Negative for vaginal bleeding. Neurological: Negative for syncope and headaches. Psychiatric/Behavioral: Negative for confusion. Labs: CBC, CMP, type and screen PHYSICAL EXAM: Vitals: 04/12/22 1523 Resp: 16 Temp: 36.7 C (98 F) TempSrc: Oral Weight: 75.3 kg Height: 1.6 m (5' 3) General appearance: awake, alert, cooperative, no apparent distress, and appears stated age Neurologic: Awake, alert, oriented to name, place and time. Lungs: No increased work of breathing, good air exchange Abdomen: Soft, non tender, gravid, consistent with her gestational age, no RUQ pain Sterile Speculum Exam: Membranes: Intact HSV Lesions: not applicable Cervix: c/t/h Contraction frequency: none Fetus: EFW: 1187g (33%) with AC 3% on US in triage Presentation: vtx by U/S Hx of PTL: Celestone given previously: Yes , today at 1125 Cervical Length: n/a ASSESSMENT AND PLAN: LABOR DELIVERY ??? SCD's ONLY (labor through ambulation) SCD's PLUS Prophylactic Anticoagulation until discharge SCD's PLUS Prophylactic Anticoagulation for 6 weeks SCD's PLUS Therapeutic Anticoagulation for 6 weeks Vaginal Delivery [] BMI ? 40 kg/m2 Delivery All patients Vaginal Delivery [] BMI ? 40 kg/m2 AND [] Antepartum hospitalization ? 72 hours within the past month Delivery 1 Major Risk Factor: [] BMI ? 35 kg/m2 [] Low Risk Thrombophilia [] PPH+RBCs, IR, or operation [] Infection+Antibiotics [] Antepartum hospitalization ? 72 hours within the past month [] PMH: Sickle Cell, SLE, Cardiac Dz, Active IBD, Active Cancer, Nephrotic Syndrome OR 2 Minor Risk Factors: [] Multiple gestation [] Age > 40 [] PPH ? 1,000cc [] (+)FMH of VTE [] Smoker [] Preeclampsia [] BMI ? 40 kg/m2 AND [] Low Risk Thrombophilia OR ANY OF THE FOLLOWING: [] High Risk Thrombophilia without prior VTE [] Low Risk Thrombophilia with (+)FMH of VTE [] Any single prior VTE ANY OF THE FOLLOWING: [] Already on LMWH/UFH [] Multiple prior VTE [] High Risk Thrombophilia with prior VTE Low Risk Thrombophilia: FVL (heterozygous), Prothrombin (heterozygous), Protein C, Protein S High Risk Thrombophilia: FVL (homozygous), Prothrombin (homozygous), FVL+Prothrombin (heterozygous), Antithrombin III, APLS VTE Prophylaxis: will determine pending timing of delivery Admission: Admit to L&D FHR: Category 1, heart monitoring CEFM Labs: GBS not obtained GC/CT not obtained Urine obtained and reviewed FFN not obtained Type&Screen ordered, but not yet obtained Serum Labs CBC, CMP Consults: MFM Imaging: Indicated/ordered - Stat growth ultrasound Diet: NPO Testing: TBD Timing and Route of Delivery: expectant management contraindicated due to Cr > 1.1 Medications: Neuroprotection Indicated/ordered Tocolysis Not indicated Antibiotics Not indicated Steroids: Betamethasone - indicated and ordered PreEwSF - Presented to OSH with occipital migraine and n/v x3d - Persistent severe range Bps at OSH requiring IV hydralazine and labetalol 100mg PO x1 - Headache resolved with fioricet, otherwise asymptomatic and abdominal exam is benign - PreE labs at OSH significant for Cr 1.16 and UPC 10 - Bps normotensive to low mild range on arrival to [facility] - PreE labs repeated on arrival and Cr stable at 1.15 - Mag level checked due to elevated creatinine and mag running at 0.5g/hr and mag noted to be subtherapeutic at 4.7 - Will give 2g mag bolus now then continue to run at 0.5g/hr - Monitor labs q6hrs for mag level and creatinine - Will start procardia XL 30mg daily - Per ACOG, Cr >1.1 is a contraindication to expectant management. Dr. Mclaughlin went to bedside and discussed recommendation for delivery. Given closed cervix and early gestation, recommendation is for PCD. - Bps currently stable and patient asymptomatic. Will allow patient and her partner to talk to NICU prior to proceeding with . - Will plan to avoid NSAIDs and toradol in the state FGR - Diagnosed on stat growth US in triage - US (04/12): EFW 1187g (33%) with AC 3%, normal UAD IUP @ 29w2d - Dating by \ US per patient report - Cephalic on 04/12 - Monitoring: CEFM - Diet: NPO - BMZ x1 on 04/12 at 1125 - Magnesium sulfate for neuroprotection Discussed with Dr Mclaughlin, who agrees with plan. Harris Beltre, DO 04/12/2022, 3:30 PM Cc: Gia Mclaughlin MD Associated attestation - Gia Mclaughlin MD - 04/12/2022 7:09 PM EST I independently saw and evaluated the patient. I agree with the findings and plan of care as documented in the resident's note. Transport from [place] after severe range BP, headache and creatinine noted to be 1.1 21 yr old at 29 2/7 GA with the following: Pre-eclampsia with SF, severe range BP, headache and creatinine of 1.1 with significant proteinuria, confirmed on her transport no history of renal disease and no concerns for feeling unwell with the exception of a 4 day headache. No history of SLE FGR based upon AC with elevated UAD discussed today with the couple Today we talked about pre-eclampsia, its clinical manifestations and that the hallmark is typically elevated BP, it is progressive and unpredictable in its clinical course and with conservative expectant management our goal is to prolong the to obtain steroids and if possible to 34 weeks, but it is with increased maternal risks. I discussed my concerns with the couple given her elevated creatinine of 1.1 and the possibility of worsening maternal disease given that this is found today on two occasions at separate labs. This value according to ACOG practice bulletin is not a candidate for expectant management given the concerns for worsening disease, and I discussed my concerns with the couple given her unfavorable cervix along with this value that a IOL would also not be in her best interest as it may prolong her disease and worsen her maternal health. The rationale behind magnesium IV was addressed as maternal seizure prophylaxis, but this is also renally cleared and need to follow this closely. I would recommend given this creatinine value along with her unfavorable cervix delivery as soon as possible and given her current GA this would be a primary . The couple agrees. The patient voices understanding and understands ongoing inpatient management now with close follow up for diuresis. NICU has seen the patient, and we talked about the R/B/A of balancing the risks for pre-eclampsia with SF and her ongoing maternal risk with the risks of prematurity. She received one dose of steroids, and given the concern for maternal instability and this creatinine value I do not recommend expectant management at this time. Dr. Harris aware and will allow the team performing the to obtain surgical consent. Continued every 6 hour mag/CMP with CBC values are recommended. Currently she received 2gm bolus given subtherapeutic value and will continued .5gm/hour. If creatinine is > 1.5 will obtain nephro consult. Avoid nephro toxic drugs and watch for concerns related to non-cardiogenic pulmonary edema. Will also obtain C3/C4 and DS DNA, doubt SLE, but given her current degree of proteinuria will plan to work this up as well to ensure no other concerns, but given her above would not expectantly manage at this time. Procardia XL for the to maintain BP < 150/100. She did receive IV hydralazine prior to transport I spent 60 minutes in the visit today on the floor reviewing the chart, discussing the case with the residency staff and nursing Gia Mclaughlin MD documented in this encounter [facility] [place] 04-12-2022 History and physi zka note Note Date/Time April 12, 2022 10:58am [facility] Medical Records Department [address] [place] [address] H&P Exam - SIDE LASTER 04/12/22 1054 MR#: [id number] Acct: [id number] Name: KIERA BELLO Rep #:[id number] : 2000 21 From: Zuleyma ochoa DO PCP: Care Physician,No Primary Status :REG CLI Location: [id number] History and Physical Date of Admission: 04/12/22 HPI: 21-year-old G1, P0 at 29/2 weeks, EDI 06/26/2022 by first trimester ultrasound, admitted for severe preeclampsia based on severe range blood pressures and persistent headache. Reports that she has had headache for 3 days it is in the occipital region. Denies visual disturbances. Has had nausea and vomiting since onset. Tylenol is not improved headache. Denies right upper quadrant pain, chest pain or shortness of breath, diarrhea or constipation, fevers or chills. Reports movement. Denies contractions, leaking of fluid, vaginalbleeding. complicated by: Chlamydia in with a negative test of cure, marginal cord insertion, eczema SIDE LASTER history G1: Current Medical history: 1. Eczema Surgical history: 1. Bunion removal bilateral feet 2013 2. [place] tooth extraction 2020 No history of issues with anesthesia Family history: Noncontributory, grandmother had ovarian cancer Allergies: No known drug allergies Social history: Denies tobacco, alcohol, drug use Review of system: Negative otherwise stated above Physical exam: Blood pressure 176/106, pulse 85, respiratory rate 16, pulse ox 100% on room air General: No acute distress HEENT: Normocephalic/atraumatic, PERRLA Cardiac: Regular rate and rhythm, no murmurs rubs or gallops Respiratory: No increased effort, clear to auscultation bilaterally Abdomen: Soft, nontender, gravid Extremities: No edema Neurologic: Cranial nerves II through XII grossly intact, patellar reflexes 3/4,no clonus Musculoskeletal: Strength 5-5 throughout extremities FHR: 135/mod alise/+accel/no decel [place]: rare labs: A positive Syphilis negative Hepatitis B/hepatitis C negative/negative HIV negative Rubella immune Varicella immune Chlamydia positive at first OB visit, repeat negative in December. Gonorrhea hasbeen negative both times. Glucose test 131 Declined genetic and carrier screening Admission labs: WBC 13.7, hemoglobin/hematocrit 14.3/41.5, platelets 249 CMP, LDH, urine protein creatinine ratio pending GBS pending Assessment/plan: 21-year-old G1, P0 at 29/2 weeks, EDI 06/26/2022 by first trimester ultrasound, admitted for severe preeclampsia. complicated by: Chlamydia in with a negative test of cure, marginal cord insertion, eczema. ?Patient diagnosed with severe preeclampsia based on severe range blood pressures and neurologic symptoms with persistent headache. ?Patient given 10 mg IV hydralazine, repeat blood pressure pending. ?Started on magnesium sulfate 6 g bolus, followed by 2 g/h ?Celestone 12 mg given ?GBS collected ?CBC within normal limits. CMP, LDH, urine protein creatinine ratio pending ?Discussed diagnosis at length with patient and her partner. Discussed recommendations for maternal blood pressure stabilization with subsequent transport to [facility]. Reviewed likely plan of care with anticipated delivery at 34 weeks. Reviewed maternal risks and risk with prolonged NICU stay. Patient and her partner understand. Questions answered. ?Reviewed plan with bedside RN and charge nurse. 04/12/22 1106 <Electronically signed by Zuleyma Huston DO> Cosigner Signature (if applicable): CC: Dr. Zuleyma Huston DO; No Primary Care Physician~ Signed ADDENDUM by Dr. Zuleyma Huston DO on 04/12/[address] Gia Mclaughlin accepting transport [facility]. Started labetalol 100 mg BID. Creatinine elevated. Will decrease maintenance of mag to 0.5 g/h after bolus 04/12/22 112<Electronically signed by Zuleyma Huston DO> Cosigner Signature (if applicable): cc: Dr. Zuleyma Huston DO; No Primary Care Physician ~* Signed ADDENDUM by Dr. Zuleyma Huston DO on 04/12/22 at 1131 Addendum Discussed mag rate with Dr. Mclaughlin, 0.5g/h 04/12/22 113<Electronically signed by Zuleyma Huston DO> Cosigner Signature (if applicable): cc: Dr. Zuleyma Huston DO; No Primary Care Physician ~* Signed [facility] Work Phone: [phone] 586-243707-28-2022 NotePap Smear Specimen AdequacyJuly 2021 8:45amComment.Satisfactory for evaluation. Endocervical and/or squamous metaplasticcells (endocervical component)are present.[facility] A#[id number] City Hospital Work Phone: Comment on above:Satisfactory for evaluation. Endocervical and/or squamous metaplasticcells (endocervical component)are present.Evaluation noteNo assessment information availableWFostoria City Hospital Work Phone: Evaluation note* Diagnosis Preeclampsia, severe, third trimester- Primary Preeclampsia, severe, third trimester S/P Severe pre-eclampsia in third trimester [facility] Diagnosis Encounter for supervision of high risk in first trimester, antepartum- Primary 7 weeks gestation of state, incidental History of pre-eclampsia Personal history of other genital system and obstetric disorders History of delivery, currently with history of pre-term labor History of section Other postprocedural status Constipation during in first trimester Heartburn during in first trimester [facility] Diagnosis History of delivery, currently - Primary with history of pre-term labor History of section Other postprocedural status History of pre-eclampsia Personal history of other genital system and obstetric disorders 14 weeks gestation of state, incidental * Assessment & Plan Note - Darnell Blank MD - 05/13/2024 1:56 PM ESTAssociated Problem(s): History of pre-eclampsia Encouraged to have baseline labs Aspirin 162mg nightly Anatomy ultrasound 18-20 weeks Growth ultrasound 32 weeks * Assessment & Plan Note - Darnell Blank MD - 05/13/2024 1:50 PM ESTAssociated Problem(s): History of delivery, currently History iatrogenic PTD for severe preeclampsia documented in this encounter [facility] note* Diagnosis Encounter for screening for malformation using ultrasound- Primary 14 weeks gestation of state, incidental Encounter for (NT) nuchal translucency scan Other specified screening History of delivery, currently - Primary with history of pre-term labor History of section Other postprocedural status History of pre-eclampsia Personal history of other genital system and obstetric disorders 14 weeks gestation of state, incidental [facility]* Diagnosis History of delivery, currently - Primary with history of pre-term labor History of section Other postprocedural status History of pre-eclampsia Personal history of other genital system and obstetric disorders 14 weeks gestation of state, incidental History of pre-eclampsia- Primary Personal history of other genital system and obstetric disorders [facility]* Diagnosis History of delivery, currently (HCC)- Primary with history of pre-term labor History of section Other postprocedural status History of pre-eclampsia Personal history of other genital system and obstetric disorders 14 weeks gestation of ([facility]) state, incidental Encounter for supervision of normal first in second trimester ([facility])- Primary Supervision of normal first History of pre-eclampsia Personal history of other genital system and obstetric disorders History of section Other postprocedural status 20 weeks gestation of ([facility]) state, incidental [facility]* Diagnosis History of delivery, currently ([facility])- Primary with history of pre-term labor History of section Other postprocedural status History of pre-eclampsia Personal history of other genital system and obstetric disorders 14 weeks gestation of ([facility]) state, incidental Encounter for anatomic survey ([facility])- Primary Encounter for anatomic survey 20 weeks gestation of ([facility]) state, incidental documented in this encounter [facility] note* Diagnosis History of delivery, currently ([facility])- Primary with history of pre-term labor History of section Other postprocedural status History of pre-eclampsia Personal history of other genital system and obstetric disorders 14 weeks gestation of ([facility]) state, incidental Supervision of high risk in second trimester ([facility])- Primary Unspecified high-risk 24 weeks gestation of ([facility]) state, incidental History of delivery, currently ([facility]) with history of pre-term labor History of pre-eclampsia Personal history of other genital system and obstetric disorders History of section Other postprocedural status documented in this encounter [facility] note* Diagnosis History of delivery, currently ([facility])- Primary with history of pre-term labor History of section Other postprocedural status History of pre-eclampsia Personal history of other genital system and obstetric disorders 14 weeks gestation of ([facility]) state, incidental Supervision of high risk in third trimester ([facility])- Primary Unspecified high-risk 28 weeks gestation of ([facility]) state, incidental History of delivery, currently ([facility]) with history of pre-term labor History of pre-eclampsia Personal history of other genital system and obstetric disorders History of section Other postprocedural status Desires (vaginal after ) trial ([facility]) Previous delivery, unspecified as to episode of care or not applicable [facility]* Diagnosis History of delivery, currently ([facility])- Primary with history of pre-term labor History of section Other postprocedural status History of pre-eclampsia Personal history of other genital system and obstetric disorders 14 weeks gestation of ([facility]) state, incidental Supervision of high risk in third trimester ([facility])- Primary Unspecified high-risk History of delivery, currently ([facility]) with history of pre-term labor History of pre-eclampsia Personal history of other genital system and obstetric disorders History of section Other postprocedural status Desires (vaginal after ) trial ([facility]) Previous delivery, unspecified as to episode of care or not applicable 30 weeks gestation of ([facility]) state, incidental Anemia complicating , third trimester ([facility]) documented in this encounter [facility] note* Diagnosis History of delivery, currently ([facility])- Primary with history of pre-term labor History of section Other postprocedural status History of pre-eclampsia Personal history of other genital system and obstetric disorders 14 weeks gestation of ([facility]) state, incidental Supervision of high risk in third trimester ([facility])- Primary Unspecified high-risk History of delivery, currently ([facility]) with history of pre-term labor History of pre-eclampsia Personal history of other genital system and obstetric disorders History of section Other postprocedural status Desires (vaginal after ) trial ([facility]) Previous delivery, unspecified as to episode of care or not applicable 32 weeks gestation of ([facility]) state, incidental [facility]* Diagnosis History of delivery, currently ([facility])- Primary with history of pre-term labor History of section Other postprocedural status History of pre-eclampsia Personal history of other genital system and obstetric disorders 14 weeks gestation of ([facility]) state, incidental Supervision of high risk in third trimester ([facility]) Unspecified high-risk 28 weeks gestation of ([facility]) state, incidental History of delivery, currently ([facility]) with history of pre-term labor History of pre-eclampsia Personal history of other genital system and obstetric disorders documented in this encounter [facility] note* Diagnosis History of delivery, currently ([facility])- Primary with history of pre-term labor History of section Other postprocedural status History of pre-eclampsia Personal history of other genital system and obstetric disorders 14 weeks gestation of ([facility]) state, incidental Supervision of high risk in third trimester ([facility])- Primary Unspecified high-risk 34 weeks gestation of ([facility]) state, incidental History of section Other postprocedural status Desires (vaginal after ) trial ([facility]) Previous delivery, unspecified as to episode of care or not applicable History of delivery, currently ([facility]) with history of pre-term labor History of pre-eclampsia Personal history of other genital system and obstetric disorders Anemia complicating , third trimester ([facility]) [facility]* Diagnosis History of delivery, currently ([facility])- Primary with history of pre-term labor History of section Other postprocedural status History of pre-eclampsia Personal history of other genital system and obstetric disorders 14 weeks gestation of ([facility]) state, incidental Supervision of high risk in third trimester ([facility]) Unspecified high-risk 28 weeks gestation of ([facility]) state, incidental History of delivery, currently ([facility]) with history of pre-term labor History of pre-eclampsia Personal history of other genital system and obstetric disorders Supervision of high risk in third trimester ([facility])- Primary Unspecified high-risk Desires (vaginal after ) trial ([facility]) Previous delivery, unspecified as to episode of care or not applicable History of section Other postprocedural status History of delivery, currently ([facility]) with history of pre-term labor Anemia complicating , third trimester ([facility]) 36 weeks gestation of ([facility]) state, incidental [facility] Diagnosis History of delivery, currently ([facility])- Primary with history of pre-term labor History of section Other postprocedural status History of pre-eclampsia Personal history of other genital system and obstetric disorders 14 weeks gestation of ([facility]) state, incidental Supervision of high risk in third trimester ([facility])- Primary Unspecified high-risk Desires (vaginal after ) trial ([facility]) Previous delivery, unspecified as to episode of care or not applicable History of section Other postprocedural status History of delivery, currently ([facility]) with history of pre-term labor Anemia complicating , third trimester ([facility]) 36 weeks gestation of ([facility]) state, incidental * Assessment & Plan Note - Kamar Valdovinos MD - 10/15/2024 10:23 AM EDTAssociated Problem(s): Supervision of high risk in third trimester ([facility]) Orders: URINE OB DIP B/O ROUTINE, GROUP B STREPTOCOCCUS BY PCR * Assessment & Plan Note - Kamar Valdovinos MD - 10/15/2024 10:23 AM EDTAssociated Problem(s): Desires (vaginal after ) trial ([facility]) Patient requests [facility]OL at [facility] if no spontaneous labor by [facility]. Orders: URINE OB DIP B/O * Assessment & Plan Note - Kamar Valdovinos MD - 10/15/2024 10:23 AM EDTAssociated Problem(s): History of section Orders: URINE OB DIP B/O * Assessment & Plan Note - Kamar Valdovinos MD - 10/15/2024 10:23 AM EDTAssociated Problem(s): History of delivery, currently ([facility]) Orders: URINE OB DIP B/O * Assessment & Plan Note - Kamar Valdovinos MD - 10/15/2024 10:23 AM EDTAssociated Problem(s): Anemia complicating , third trimester ([facility]) Continue iron & PNV Orders: URINE OB DIP B/O [facility] Diagnosis History of delivery, currently ([facility])- Primary with history of pre-term labor History of section Other postprocedural status History of pre-eclampsia Personal history of other genital system and obstetric disorders 14 weeks gestation of ([facility]) state, incidental Supervision of high risk in third trimester ([facility])- Primary Unspecified high-risk Desires (vaginal after ) trial ([facility]) Previous delivery, unspecified as to episode of care or not applicable History of section Other postprocedural status History of delivery, currently ([facility]) with history of pre-term labor Anemia complicating , third trimester ([facility]) 36 weeks gestation of ([facility]) state, incidental 37 weeks gestation of ([facility])- Primary state, incidental Supervision of high risk in third trimester ([facility]) Unspecified high-risk History of section Other postprocedural status [facility]* Diagnosis History of delivery, currently ([facility])- Primary with history of pre-term labor History of section Other postprocedural status History of pre-eclampsia Personal history of other genital system and obstetric disorders 14 weeks gestation of ([facility]) state, incidental Supervision of high risk in third trimester ([facility])- Primary Unspecified high-risk Desires (vaginal after ) trial ([facility]) Previous delivery, unspecified as to episode of care or not applicable History of section Other postprocedural status History of delivery, currently ([facility]) with history of pre-term labor Anemia complicating , third trimester ([facility]) 36 weeks gestation of ([facility]) state, incidental Supervision of high risk in third trimester ([facility])- Primary Unspecified high-risk 39 weeks gestation of ([facility]) state, incidental History of section Other postprocedural status Desires (vaginal after ) trial ([facility]) Previous delivery, unspecified as to episode of care or not applicable History of delivery, currently ([facility]) with history of pre-term labor Anemia complicating , third trimester ([facility]) History of pre-eclampsia Personal history of other genital system and obstetric disorders [facility]* Here to get established. She has been having some issues with anxiety. States that she has had it her whole life. She has not been on medication or had counselling in the past. She states that she isalways sweating - that has been an issue since she was little - especially her palms, having some hair loss, will feel like she can't breathe at times, cries easily, heart races. No dizziness/passingout. * She has no known medical problems, takes no medications on a regular basis. [facility] Work Phone: History of Present illness NarrativeHere for f/u anxiety/depression. She states that she does not feel any different. No side effects with the lexapro. We will increase to 10 mg daily and see if things improve.[facility] Work Phone: History of Present illness NarrativeHere for f/u anxiety/depression. She states that she thinks she is feeling a little less tired.[facility] Work Phone: History of Present illness NarrativeHere for f/u anxiety/depression. She states that she thinks she is feeling a little less tired, butotherwise things haven't changed. She continues to struggle with excessive sweating, it is most bothersome on her palms/ hands. She does have an appointment with dermatology, but it's not until the end of the month.[facility] Work Phone: History of Present illness NarrativeHere for f/u anxiety/depression. She does think that the drysol is helpful for her hands, unless she gets very nervous. She thinks the lexapro is somewhat helpful with her anxiety but she does get some nausea that she believes is related to the medication. She does still struggle with her anxiety as well - we discussed possibly changing her medication vs adding buspirone and she would like to add the buspirone so we will do that.[facility] Work Phone: Hospital Discharge instructions Additional Instructions Please follow-up with [facility] and for repeat blood work as well as evaluation. If you develop a fever over 100.4 or have severe increase in pain or bleeding please return to the ER for [facility]WF[facility] Work Phone: [facility] Dis[facility] instructionsWFost[facility] Work Phone: Summary Purpose Family History Unknown Family Member Name Dates Details No pertinent family history: Mother, Father(V49.89, Z78.9) Status:Active Unknown Family Member Name Dates Details No pertinent family history: Mother, Father(V49.89, Z78.9) Status:Active Unknown Family Member Name Dates Details No pertinent family history: Mother, Father(V49.89, Z78.9) Status:Active Unknown Family Member Name Dates Details No pertinent family history: Mother, Father(V49.89, Z78.9) Status:Active Unknown Family Member Name Dates Details No pertinent family history: Mother, Father(V49.89, Z78.9) Status:Active Unknown Family Member Name Dates Details No pertinent family history: Mother, Father(V49.89, Z78.9) Status:Active Advance Directives Advance Directive Response Recorded Date/ Time Living Will No October 19, 2021 10:47pm Power of Stitcher Standard Machine No October 19 10:47pm Advance Directive Response Recorded Date/ Time Living Will No October 19, 2021 9:47pm Power of Stitcher Standard Machine No October 19 9:47pm Latest Code Status on File Code Status Date Activated Date Inactivated Comments Full Code 04/12/2022 5:41 PM 04/15/2022 8:16 PM Chief Complaint NPV, anxiety2 week f/uanxietyanxiety1 month f/u, medication is making her nauseous Chief Complaint and Reason for Visit Chief Complaint VAG BLEEDING WITH UT EGNANCY Chief Complaint N/V Reason for Referral Specialty Diagnoses / Procedures Referred By Bernardo davidson Referred To Contact Diagnoses Encounter for supervision of high risk in first trimester, antepartum History of pre-eclampsia History of delivery, currently History of section Procedures CONSULT TO MATERNAL MEDI OFFICE/OUTPATIENT NEW HIGH MDM 60 MINUTES Mik Mendoza APRN.BOX TRUCK DRIVER [address] [place] [address] Referral ID Status Reason Start Date Expiration Date Visits Requested Visits Authorized [id number] Authorized PCP Requested Referral Auto-Generate d Referral 03/28/2024 03/28/2025 1 1 Specialty Diagnoses / Procedures Referred By Contac t Referred To Contact [facility] Diagnoses 7 weeks gestation of Procedures NUCHAL TRANSLUCENCY WHI US NUCHAL TRANSLUCENCY 1ST GESTATION Mik Mendoza APRN.CNP [address] [place] [address] [facility] [address] [place] [id number] Referral ID Status Reason Start Date Expiration Date Visits Requested Visits Authorized [id number] Authorized Auto-Generat ed Referral 03/28/2024 03/28/2025 1 1 Specialty Diagnoses / Procedures Referred By Contac t Referred To Contact [facility] Diagnoses 7 weeks gestation of Procedures OBSTETRIC ULTRASOUND WHI US PREG UTERUS AFTER 1ST TRIMEST GESTATION Mik Mendoza APRN.BOX TRUCK DRIVER [address] [place] [address] [facility] [address] [place] [address] Referral ID Status Reason Start Date Expiration Date Visits Requested Visits Authorized [id number] Authorized Auto-Generat ed Referral 03/28/2024 03/28/2025 1 1 Additional Source Comments INFORMATION SOURCE (unrecogn ized section and content) DATE CREATED AUTHOR 07/29/2020 [facility] DATE CREATED AUTHOR AUTHOR'S ORGANIZ ATION 05/28/2021 [facility] DATE CREATED AUTHOR AUTHOR'S ORGANIZ ATION 07/04/2021 [facility] DATE CREATED AUTHOR AUTHOR'S ORGANIZ ATION 05/05/2022 [facility] DATE CREATED AUTHOR AUTHOR'S ORGANIZ ATION 04/25/2024 [facility] DATE CREATED AUTHOR AUTHOR'S ORGANIZ ATION 10/30/2024 [facility] Goals (unrecognized section and content) Goals may be documented in a n alternate sectionGoals may be documented in an alternate sectionGoals may be documented in an alternate sectionGoals may be documented in an alternate sectionGoals may be documented in an alternate sectionGoals may be documented in an alternate section Care Teams (unrecognized sec tion and content) Team Status: Active Member Role Status Dates Dr. Alphonso Crockett MD Family Provider Active No Primary Care Physician Primary Care Provider Active Team Status: Inactive Member Role Status Dates No Primary Care Physician Primary Care Provider Active Dr. Zuleyma Huston , DO Attending Provider Active Team Status: Active Member Role Status Dates No Primary Care Physician Primary Care Provider Active Dr. Zuleyma Huston , DO Attending Provider Active Team Status: Inactive Member Role Status Dates No Primary Care Physician Primary Care Provider Active Dr. Zuleyma Huston , DO Attending Provider, Referrin g Provider Active Clinical Orthoptist Relationship Specialty Start Date End Date Hodan Luong MD [address] [id number] PCP - General Pediatrics 05/04/15 Clinical Orthoptist Relationship Specialty [place] [address] [place], [place] [id number] PCP - General Pediatrics 05/04/15 Clinical Orthoptist Relationship Specialty [place] [address] [place] [address] PCP - General Pediatrics 05/04/15 Clinical Orthoptist Relationship Specialty Start Date End Date Hodan Luong MD [address] [id number] PCP - General Pediatrics 05/04/15 Clinical Orthoptist Relationship Specialty Start Date End Date Hodan Luong MD [address] [id number] PCP - General Pediatrics 05/04/15 Clinical Orthoptist Relationship Specialty Start Date End Date Hodan Luong MD [address] [place] [address] PCP - General Pediatrics 05/04/15 Clinical Orthoptist Relationship Specialty Start Date End Date Hodan Luong MD [facility] [place] [address] PCP - General Pediatrics 05/04/15 Clinical Orthoptist Relationship Specialty Start Date End Date Hodan Luong MD [address] [place], [place] [id number] PCP - General Pediatrics 05/04/15 Clinical Orthoptist Relationship Specialty Start Date End Date Hodan Luong MD [address] [place], [place] [id number] PCP - General Pediatrics 05/04/15 Clinical Orthoptist Relationship Specialty Start Date End Date Hodan Luong MD [address] [place], [place] [id number] PCP - General Pediatrics 05/04/15 Clinical Orthoptist Relationship Specialty Start Date End Date Hodan Luong MD [address] [place] [address] PCP - General Pediatrics 05/04/15 Clinical Orthoptist Relationship Specialty Start Date End Date Hodan Luong MD [address] [place] [address] PCP - General Pediatrics 05/04/15 Clinical Orthoptist Relationship Specialty Start Date End Date Hodan Luong MD [address] [place] [address] PCP - General Pediatrics 05/04/15 Clinical Orthoptist Relationship Specialty Start Date End Date Hodan Luong MD [address] [place] [address] PCP - General Pediatrics 05/04/15 Clinical Orthoptist Relationship Specialty Start Date End Date Hodan Luong MD [address] [place] [address] PCP - General Pediatrics 05/04/15 Clinical Orthoptist Relationship Specialty Start Date End Date Hodan Luong MD [address] [place] [address] PCP - General Pediatrics 05/04/15 Clinical Orthoptist Relationship Specialty Start Date End Date Hodan Luong MD [address] [facility] [place] [address] PCP - General Pediatrics 05/04/15 Clinical Orthoptist Relationship Specialty Start Date End Date Hodan Luong MD [address] [place] [address] PCP - General Pediatrics 05/04/15 Clinical Orthoptist Relationship Specialty Start Date End Date Hodan Luong MD [address] [facility] [place] [address] PCP - General Pediatrics 05/04/15 Clinical Orthoptist Relationship Specialty Start Date End Date Hodan Luong MD [address] [place] [address] PCP - General Pediatrics 05/04/15 Clinical Orthoptist Relationship Specialty Start Date End Date Hodan Luong MD [address] [place] [address] PCP - General Pediatrics 05/04/15 Source Comments (unrecognize d section and content) In the event this informatio n is protected by the Federal Confidentiality of Alcohol and Drug Abuse Patient Records regulations: The Federal rules restrict any use of the information to criminally investigate or prosecute any alcohol or drug abuse patient.[facility] the event this information is protected by the Federal Confidentiality of Alcohol and Drug Abuse Patient Records regulations: The Federal rules restrict any use of the information to criminally investigate or prosecute any alcohol or drug abuse patient.[facility] the event this information is protected by the Federal Confidentiality of Alcohol and Drug Abuse Patient Records regulations: The Federal rules restrict any use of the information to criminally investigate or prosecute any alcohol or drug abuse patient.[facility] the event this information is protected by the Federal Confidentiality of Alcohol and Drug Abuse Patient Records regulations: The Federal rules restrict any use of the information to criminally investigate or prosecute any alcohol or drug abuse patient.[facility] the event this information is protected by the Federal Confidentiality of Alcohol and Drug Abuse Patient Records regulations: The Federal rules restrict any use of the information to criminally investigate or prosecute any alcohol or drug abuse patient.[facility] the event this information is protected by the Federal Confidentiality of Alcohol and Drug Abuse Patient Records regulations: The Federal rules restrict any use of the information to criminally investigate or prosecute any alcohol or drug abuse patient.[facility] the event this information is protected by the Federal Confidentiality of Alcohol and Drug Abuse Patient Records regulations: The Federal rules restrict any use of the information to criminally investigate or prosecute any alcohol or drug abuse patient.[facility] the event this information is protected by the Federal Confidentiality of Alcohol and Drug Abuse Patient Records regulations: The Federal rules restrict any use of the information to criminally investigate or prosecute any alcohol or drug abuse patient.[facility] the event this information is protected by the Federal Confidentiality of Alcohol and Drug Abuse Patient Records regulations: The Federal rules restrict any use of the information to criminally investigate or prosecute any alcohol or drug abuse patient.[facility] the event this information is protected by the Federal Confidentiality of Alcohol and Drug Abuse Patient Records regulations: The Federal rules restrict any use of the information to criminally investigate or prosecute any alcohol or drug abuse patient.[facility] the event this information is protected by the Federal Confidentiality of Alcohol and Drug Abuse Patient Records regulations: The Federal rules restrict any use of the information to criminally investigate or prosecute any alcohol or drug abuse patient.[facility] the event this information is protected by the Federal Confidentiality of Alcohol and Drug Abuse Patient Records regulations: The Federal rules restrict any use of the information to criminally investigate or prosecute any alcohol or drug abuse patient.[facility] the event this information is protected by the Federal Confidentiality of Alcohol and Drug Abuse Patient Records regulations: The Federal rules restrict any use of the information to criminally investigate or prosecute any alcohol or drug abuse patient.[facility] the event this information is protected by the Federal Confidentiality of Alcohol and Drug Abuse Patient Records regulations: The Federal rules restrict any use of the information to criminally investigate or prosecute any alcohol or drug abuse patient.[facility] the event this information is protected by the Federal Confidentiality of Alcohol and Drug Abuse Patient Records regulations: The Federal rules restrict any use of the information to criminally investigate or prosecute any alcohol or drug abuse patient.[facility] the event this information is protected by the Federal Confidentiality of Alcohol and Drug Abuse Patient Records regulations: The Federal rules restrict any use of the information to criminally investigate or prosecute any alcohol or drug abuse patient.[facility] the event this information is protected by the Federal Confidentiality of Alcohol and Drug Abuse Patient Records regulations: The Federal rules restrict any use of the information to criminally investigate or prosecute any alcohol or drug abuse patient.[facility] the event this information is protected by the Federal Confidentiality of Alcohol and Drug Abuse Patient Records regulations: The Federal rules restrict any use of the information to criminally investigate or prosecute any alcohol or drug abuse patient.[facility] the event this information is protected by the Federal Confidentiality of Alcohol and Drug Abuse Patient Records regulations: The Federal rules restrict any use of the information to criminally investigate or prosecute any alcohol or drug abuse patient.[facility] the event this information is protected by the Federal Confidentiality of Alcohol and Drug Abuse Patient Records regulations: The Federal rules restrict any use of the information to criminally investigate or prosecute any alcohol or drug abuse patient.[facility] the event this information is protected by the Federal Confidentiality of Alcohol and Drug Abuse Patient Records regulations: The Federal rules restrict any use of the information to criminally investigate or prosecute any alcohol or drug abuse patient.[facility] the event this information is protected by the Federal Confidentiality of Alcohol and Drug Abuse Patient Records regulations: The Federal rules restrict any use of the information to criminally investigate or prosecute any alcohol or drug abuse patient.[facility] the event this information is protected by the Federal Confidentiality of Alcohol and Drug Abuse Patient Records regulations: The Federal rules restrict any use of the information to criminally investigate or prosecute any alcohol or drug abuse patient.[facility] the event this information is protected by the Federal Confidentiality of Alcohol and Drug Abuse Patient Records regulations: The Federal rules restrict any use of the information to criminally investigate or prosecute any alcohol or drug abuse patient.[facility] Reason for Visit (unrecogniz ed section and content) Reason Onset Date Comments Care 10/23/2024 Specialty Diagnoses / Procedures Referred By Bernardo davidson Referred To Contact [facility] Diagnoses Encounter for general adult medical examination without abnormal findings Office visit Procedures OFFICE/OUTPATIENT ESTABLISHED [facility] 10 MIN Office visit Katherine Brunner MD [address] [place] [address] Phone: tel: fax: OB/Gynecology [address] [place] [address] Phone: tel: Referral ID Status Reason Start Date Expiration Date Visits Requested Visits Authorized [id number] Authorized OON/Self Pay Override 09/19/2024 03/26/2025 99 99 Reason Onset Date Comments Care 10/15/2024 Reason Comments US Specialty Diagnoses / Procedures Referred By Bernardo davidson Referred To Contact [facility] Diagnoses Supervision of high risk in third trimester (HCC) 28 weeks gestation of (HCC) History of delivery, currently (HCC) History of pre-eclampsia Procedures OBSTETRIC ULTRASOUND WHI US PREG UTERUS AFTER 1ST TRIMEST GESTATION Carey Frost APRN.CNM [address] [place] [address] Phone: tel: fax: OB/Gynecology [address] [place] [address] Phone: tel: Referral ID Status Reason Start Date Expiration Date V isits Requested Visits Authorized [id number] Closed Auto-Generate d Referral OON/Self Pay Override 08/28/2024 10/26/2024 1 1 Reason Onset Date Comments Care 09/18/2024 Specialty Diagnoses / Procedures Referred By Contac t Referred To Contact [facility] Diagnoses Supervision of high risk , unspecified, third trimester (HCC) OB Procedures OFFICE/OUTPATIENT ESTABLISHED MOD MDM 30 MIN OB Self Daija Roblero APRN.CNM [address] [place] [address] Phone: tel: fax: Referral ID Status Reason Start Date Expiration Date Visits Requested Visits Authorized [id number] Authorized OON/Self Pay Override 08/21/2024 03/26/2025 99 99 Reason Comments Appointment Reason Comments Patient Update Reason Comments Pre-Eclampsia Specialty Diagnoses / Procedures Referred By Contac t Referred To Contact Diagnoses Preeclampsia, severe, third trimester Severe pre-eclampsia in third trimester Procedures [facility] [id number] ...[facility] [employer] is OON but active per Portal eff 03/27/19 ...auth has been initiated via Sn[employer] shuttle ...pending auth ref# [id number] ...Both mom and baby will be OON ...emailed [facility] nurses /cc'd Gia Gee MD [address] [facility] [address] [place] [address] [address] [place] [address] Referral ID Status Reason Start Date Expiration Date Visits Re quested Visits Authorized [id number] 1 Reason Comments Initial OB Visit Reason Comments PRAF Reason Comments US US/MFM consult/OB appt Specialty Diagnoses / Procedures Referred By Contac t Referred To Contact Diagnoses Encounter for supervision of high risk in first trimester, antepartum History of pre-eclampsia History of delivery, currently History of section Procedures CONSULT TO MATERNAL MEDI OFFICE/OUTPATIENT NEW HIGH MDM 60 MINUTES Mik Mendoza APRN.[employer] [address] [place] [address] Phone: tel: fax: Referral ID Status Reason Start Date Expiration Date V isits Requested Visits Authorized [id number] Closed PCP Requested Referral Auto-Generated Referral 03/28/2024 03/28/2025 1 1 Specialty Diagnoses / Procedures Referred By Contac t Referred To Contact [facility] Diagnoses 7 weeks gestation of Procedures NUCHAL TRANSLUCENCY WHI US NUCHAL TRANSLUCENCY 1ST GESTATION Mik Mendoza APRN.DELISA [address] [place] [address] Phone: tel: fax: [address] [phone] Referral ID Status Reason Start Date Expiration Date V isits Requested Visits Authorized [id number] Closed Auto-Generate d Referral 03/28/2024 03/28/2025 1 1 Reason Onset Date Comments Care 05/14/2024 Reason Comments Question (OB Question) Specialty Diagnoses / Procedures Referred By Contac t Referred To Contact [facility] Diagnoses 7 weeks gestation of (HCC) Procedures OBSTETRIC ULTRASOUND WHI US PREG UTERUS AFTER 1ST TRIMEST GESTATION Mik Mendoza APRN.DELISA [address] [place] [address] Phone: tel: fax: [address] [phone] Referral ID Status Reason Start Date Expiration Date V isits Requested Visits Authorized [id number] Closed Auto-Generate d Referral 03/28/2024 03/28/2025 1 1 Reason Onset Date Comments Care 07/24/2024 Specialty Diagnoses / Procedures Referred By Contac t Referred To Contact Diagnoses Office visit Procedures Office visit [facility] [address] [place] [address] Phone: tel: [facility] [phone] Referral ID Status Reason Start Date Expiration Date Visits Requested Visits Authorized [id number] Authorized Patient Cleared - Qualified 100% FAS 07/19/2024 10/17/2024 99 99 Reason Onset Date Comments Care 08/21/2024 Reason Onset Date Comments Care 09/04/2024 Reason Onset Date Comments Care 10/02/2024 Reason Onset Date Comments Population Health Navigation Outreach 10/28/2024 Ob/peds Reason Onset Date Comments Care 11/05/2024 Specialty Diagnoses / Procedures Referred By Bernardo t Referred To Contact Diagnoses Office visit Procedures Office visit Self [facility] [place] [address] Referral ID Status Reason Start Date Expiration Date Visits Requested Visits Authorized [id number] Authorized Patient Cleared - Qualified 100% FAS 10/15/2024 01/13/2025 99 99 Scheduled Active and Recently Administ ered Medications (unrecognized section and content) Medication Order 04/13/2022 04/14/2022 04/15/2022 enoxaparin (Lovenox) syringe 40 mg 40 mg, SubCUTAneous, Daily, First dose on Mon04/13/22 at 0700, Indication of Use: Prophylaxis-DVT/PE 0700 (Dose Auto Held - Provider: Mono Herrera DO)1335 (Unheld by provider - Provider: Edyta Tinajero MD) 0925 (Given - Provider: Kira Newman RN) 0813 (Given - Provider: Kira Newman RN) famotidine (Pepcid) tablet 20 mg 20 mg, Oral, 2 times daily, First dose on Mon04/12/22 at 2315, , Renal dose per pharmacy for peptic ulcer prophylaxis. 0900 (Canceled Entry - Provider: Automatic Discharge Provider - Comment: Automatically canceled at discontinue of medication order)2100 (Not Given - Provider: Nguyen Coto RN - Reason: Patient/family refused) 0900 (Not Given - Provider: Kira Newman RN - Reason: Order parameters not met)2100 (Not Given - Provider: Deb Bedolla RN - Reason: Patient/family refused) 0900 (Not Given - Provider: Kira Newman RN - Reason: Order parameters not met) ferrous sulfate tablet 325 mg 325 mg, Oral, 2 times daily with meals, First dose on Mon04/13/22 at 0800, , Start if Hgb less than 10. 0800 (Canceled Entry - Provider: Automatic Discharge Provider - Comment: Automatically canceled at discontinue of medication order)1700 (Not Given - Provider: Nguyen Coto RN - Reason: Order parameters not met) 0800 (Not Given - Provider: Kira Newman RN - Reason: Order parameters not met)1700 (Canceled Entry - Provider: Automatic Discharge Provider - Comment: Automatically canceled at discontinue of medication order) 0800 (Not Given - Provider: Kira Newman RN - Reason: Order parameters not met)1700 (Canceled Entry - Provider: Automatic Discharge Provider - Comment: Automatically canceled at discontinue of medication order) NIFEdipine XL (Procardia XL) 24 hr tablet 30 mg 30 mg, Oral, Once, On Mon04/12/22 at 2100, For 1 dose, Do not crush, chew, or split. NIFEdipine XL (Procardia XL) 24 hr tablet 30 mg (CANCELED) 30 mg, Oral, Daily, First dose on Mon04/13/22 at 0900, Do not crush, chew, or split. 0810 (Given - Provider: Kira Newman RN) NIFEdipine XL (Procardia XL) 24 hr tablet 30 mg (COMPLETED) 30 mg, Oral, Once, On Mon04/13/22 at 1700, For 1 dose, Do not crush, chew, or split. 1700 (Given - Provider: Kira Newman RN) NIFEdipine XL (Procardia XL) 24 hr tablet 60 mg 60 mg, Oral, Daily, First dose (after last modification) on Mon04/14/22 at 0900, Do not crush, chew, or split. 0924 (Given - Provider: Kira Newman RN) 0812 (Given - Provider: Kira Newman RN) vitamin tablet 1 tablet, Oral, Daily, First dose on Mon04/13/22 at 0900, , Begin when normal bowel activity resumes. 0900 (Canceled Entry - Provider: Automatic Discharge Provider - Comment: Automatically canceled at discontinue of medication order) 0900 (Not Given - Provider: Kira Newman RN - Reason: Order parameters not met) 0900 (Canceled Entry - Provider: Automatic Discharge Provider - Comment: Automatically canceled at discontinue of medication order) sodium chloride 0.9% (NS) flush 5-40 mL 5-40 mL, IntraVENous, Every 12 hours scheduled (2 times per day), First dose on Mon04/12/22 at 2315, , or Line Patency: Peripheral IV = 5 mL; Midline or Central Line = 10 mL/lumen. If following IV push medication, administer flush at same rate as the IV push. Flush volume is determined by type of infusion therapy being given. For non-viscous solutions use: Peripheral IV = 5 mL Midline or Central Line = 10 mL/lumen For viscous solutions (i.e. blood components, parenteral nutrition, contrast media, or after obtaining blood sample) use: Peripheral IV = 10 mL Midline or Central Line = 20 mL/lumen 0900 (Canceled Entry - Provider: Automatic Discharge Provider - Comment: Automatically canceled at discontinue of medication order)2109 (Given - Provider: Nguyen Coto RN - Comment: computer in room only showing half the screen will not allow me to hit accept pt was scanned for tylenol and flush was done at the same time) 09 (Canceled Entry - Provider: Automatic Discharge Provider - Comment: Automatically canceled at discontinue of medication order)1999 (Not Given - Provider: Deb Bedolla RN - Reason: Loss of IV access) 09 (Canceled Entry - Provider: Automatic Discharge Provider - Comment: Automatically canceled at discontinue of medication order) Continuous Medication Order 04/13/2022 04/14/2022 04/15/2022 magnesium sulfate 20 GM/500ML infusion () 1,000 mg/hr (25 mL/hr), IntraVENous, Continuous, Starting on Mon04/12/22 at 1615, For 1 day 3 hours 0100 (Rate/Dose Verify - Provider: Nguyen Coto RN)1042 (Rate/Dose Change - Provider: Kira Newman, GHANSHYAM)1512 (New Bag - Provider: Kira Newman, GHANSHYAM)1845 (Stopped - Provider: Kira Newman, GHANSHYAM) PRN Medication Order 04/13/2022 04/14/2022 04/15/2022 acetaminophen (Tylenol) tablet 650 mg 650 mg, Oral, Every 6 hours PRN, mild pain (1-3), Pain (1-10), Starting on Mon04/12/22 at 2314, , Give in addition to any other pain medication ordered at same time for any pain indication. Maximum dose of acetaminophen is 4000mg from all sources in 24 hours. Alternate ibuprofen and acetaminophen every 3 hours. 1512 (Given - Provider: Kira Newman RN)2111 (Given - Provider: Nguyen Coto RN) 0411 (Given - Provider: Nguyen Coto RN)1159 (Given - Provider: Kira Newman RN)1808 (Given - Provider: Kira Newman RN) 0144 (Given - Provider: Orquidea Srivastava RN)0812 (Given - Provider: Kira Newman RN) diphenhydrAMINE (BENADryl) injection 25 mg 25 mg, IntraVENous, Every 6 hours PRN, itching, hives, Starting on Mon04/12/22 at 2314, docusate sodium (Colace) capsule 100 mg 100 mg, Oral, 2 times daily PRN, constipation, Starting on Mon04/12/22 at 2314, , Do not crush or break. 1512 (Given - Provider: Kira Newman RN) 0924 (Given - Provider: Kira Newman RN) 0813 (Given - Provider: Kira Newman RN) HYDROmorphone (Dilaudid) injection 0.25 mg(Linked Group 1) 0.25 mg, IntraVENous, Every 3 hours PRN, moderate pain (4-6), Starting on Mon04/13/22 at 0700, , If oral and IV narcotics ordered, use oral first and only use IV if oral is ineffective or cannot take oral. Do Not give oral and IV within 1 hour of each other unless specifically ordered. HYDROmorphone (Dilaudid) injection 0.5 mg(Linked Group 1) 0.5 mg, IntraVENous, Every 3 hours PRN, severe pain (7-10), Starting on Mon04/13/22 at 0700, , If oral and IV narcotics ordered, use oral first and only use IV if oral is ineffective or cannot take oral. Do Not give oral and IV within 1 hour of each other unless specifically ordered. lanolin (Lansinoh) cream Topical, Every 1 hour PRN, dry skin, nipple discomfort, Starting on Mon04/12/22 at 2314, , Apply to affected area 1547 (Given - Provider: Negro Stewart RN) ondansetron (Zofran) injection 4 mg(Linked Group 2) 4 mg, IntraVENous, Every 6 hours PRN, nausea, vomiting, Starting on Mon04/12/22 at 2114, , 1st Line. Give IV if patient is unable to take orally. If inadequate response within 60 minutes, proceed to next-line agent or contact provider if no further options ordered. ondansetron ODT (Zofran-ODT) disintegrating tablet 4 mg(Linked Group 2) 4 mg, Oral, Every 8 hours PRN, nausea, vomiting, Starting on Mon04/12/22 at 2114, , 1st Line. If inadequate response within 60 minutes, proceed to next-line agent or contact provider if no further options ordered. Patient should allow tablet to dissolve on tongue. Do not remove from blister pack until just before administering. oxyCODONE (Roxicodone) immediate release tablet 10 mg(Linked Group 3) 10 mg, Oral, Every 4 hours PRN, severe pain (7-10), Starting on Mon04/13/22 at 0700, 1659 (See Alternative - Provider: Kira Newman RN) 0002 (See Alternative - Provider: Nguyen Coto RN)0411 (Given - Provider: Nguyen Coto RN)0923 (Given - Provider: Kira Newman RN)1544 (Given - Provider: Negro Stewart RN)2133 (Given - Provider: Deb Bedolla RN) 0144 (Given - Provider: Orquidea Srivastava RN)0813 (Given - Provider: Kira Newman RN)1306 (Given - Provider: Kira Newman RN) oxyCODONE (Roxicodone) immediate release tablet 5 mg(Linked Group 3) 5 mg, Oral, Every 4 hours PRN, moderate pain (4-6), Starting on Mon04/13/22 at 0700, 1659 (Given - Provider: Kira Newman RN) 0002 (Given - Provider: Nguyen Coto RN)0411 (See Alternative - Provider: Nguyen Coto RN)0923 (See Alternative - Provider: Kira Newman RN)1544 (See Alternative - Provider: Negro Stewart RN)2133 (See Alternative - Provider: Deb Bedolla, RN) 0144 (See Alternative - Provider: Orquidea Srivastava, RN)0813 (See Alternative - Provider: Kira Newman, RN)1306 (See Alternative - Provider: Kira Newman, RN) simethicone (Mylicon) chewable tablet 80 mg 80 mg, Oral, Every 6 hours PRN, flatulence, cramping, Starting on Mon04/12/22 at 2314, 1808 (Given - Provider: Kira Newman, GHANSHYAM) sodium chloride 0.9 % infusion 5-250 mL/hr, IntraVENous, PRN, if patient receiving piggyback infusions and maintenance fluids are not ordered OR KVO fluids to protect IV site / prevent frequent line interruptions/ long duration, Starting on Mon04/12/22 at 2314, , For piggyback infusion, administer at same rate as piggyback for a total of 25 mL. Enter 25 mL into dose field and piggyback rate into rate field of order. If piggyback is infusing at a rate less than 100 mL/hr, enter 25 mL into dose field and 100 mL/hr into rate field of order. For KVO fluids, enter rate of 20 mL/hr or less into rate field of order. sodium chloride 0.9% (NS) flush 5-40 mL 5-40 mL, IntraVENous, PRN, line care, After every IV line use, Starting on Mon04/12/22 at 2314, , or Line Patency: Peripheral IV = 5 mL; Midline or Central Line = 10 mL/lumen. If following IV push medication, administer flush at same rate as the IV push. Flush volume is determined by type of infusion therapy being given. For non-viscous solutions use: Peripheral IV = 5 mL Midline or Central Line = 10 mL/lumen For viscous solutions (i.e. blood components, parenteral nutrition, contrast media, or after obtaining blood sample) use: Peripheral IV = 10 mL Midline or Central Line = 20 mL/lumen Linked Groups Order Group 1: HYDROmorphone (Dilaudid) injection 0.25 mgJump to med 0.25 mg, IntraVENous, Every 3 hours PRN, moderate pain (4-6), Starting on Mon04/13/22 at 0700,
If oral and IV narcotics ordered, use oral first and only use IV if oral is ineffective or cannot take oral. Do Not give oral and IV within 1 hour of each other unless specifically ordered.
Or HYDROmorphone (Dilaudid) injection 0.5 mgJump to med 0.5 mg, IntraVENous, Every 3 hours PRN, severe pain (7-10), Starting on Mon04/13/22 at 0700,
If oral and IV narcotics ordered, use oral first and only use IV if oral is ineffective or cannot take oral. Do Not give oral and IV within 1 hour of each other unless specifically ordered.
Group 2: ondansetron ODT (Zofran-ODT) disintegrating tablet 4 mgJump to med 4 mg, Oral, Every 8 hours PRN, nausea, vomiting, Starting on Mon04/12/22 at 2114,
1st Line. If inadequate response within 60 minutes, proceed to next-line agent or contact provider if no further options ordered. Patient should allow tablet to dissolve on tongue. Do not remove from blister pack until just before administering.
Or ondansetron (Zofran) injection 4 mgJump to med 4 mg, IntraVENous, Every 6 hours PRN, nausea, vomiting, Starting on Mon04/12/22 at 2114,
1st Line. Give IV if patient is unable to take orally. If inadequate response within 60 minutes, proceed to next-line agent or contact provider if no further options ordered.
Group 3: oxyCODONE (Roxicodone) immediate release tablet 5 mgJump to med 5 mg, Oral, Every 4 hours PRN, moderate pain (4-6), Starting on Mon04/13/22 at 0700, Or oxyCODONE (Roxicodone) immediate release tablet 10 mgJump to med 10 mg, Oral, Every 4 hours PRN, severe pain (7-10), Starting on Mon04/13/22 at 0700, FOR RECORDS PERTAINING TO PATIENTS WHO ARE OR HAVE BEEN ENROLLED IN A CHEMICAL DEPENDENCY/SUBSTANCEABUSE PROGRAM, SOME INFORMATION MAY BE OMITTED. This clinical summary was aggregated from multiple sources. Caution should be exercised in using it in the provision of clinical care. This summary normalizes information from multiple sources, and as a consequence, information in this document may materially change the coding, format and clinical context of patient data. In addition, data may be omitted in some cases. CLINICAL DECISIONS SHOULD BE BASED ON THE PRIMARY CLINICAL RECORDS. [employer] [facility]. provides no warranty or guarantee of the accuracy or completeness of information in this document.
[2024-11-06 05:01] LABS: ROM Internal Control Test YES-OK TO RESULT pt. (Internal QC)
[2024-11-06 05:02] LABS: ROM Patient Test POSITIVE (Negative); Record Kit Lot#, ROM+ K3358
--- OUTSIDE RECORDS SUMMARY | 2024-11-06 05:10 | XMS RPT_ITS | CCD ---
Author Organization [facility] Care Team Providers Care Vineyard Worker Name Role Phone Yoli Moreland Unavailable [phone] Unavailable Unavailable GIA MCLAUGHLIN Referring Unavailable GIA [...] CARLOS, HODAN L Primary Care Unavailable HAURY, MKI Referring Unavailable KATHERINE BRUNNER Attending Unavailable LUIS CARLOS, HODAN L Primary Care Unavailable HAURY, MIK Referring Unavailable LUIS CARLOS, HOADN L Primary Care Unavailable KAMAR VALDOVINOS Referring [...] 1 tablet by mouth once daily. Active Joismlwf-Zwm-Ay-Fa () 1 mg Tablet (4 sources) Start: 04-12-2022 take 1 tablet by mouth once Raohuoel-Vec-Oq-Fa () 1 mg Tablet Active TABLET PO April 12, 2022 1:00am Start: 04-12-2022 take 1 tablet by mouth once Pr enatal Ldtrfhhe-Xtz-Th-Fa () 1 mg Tablet Active TABLET PO [...] Start: 04-12-2022 End: 04-15-2022 5-250 mL/hr, IntraVENous, KS N, if patient receiving piggyback infusions and [...] of ; Translations: [32 weeks gestation of ([facility])] Onset: 09-18-2024 Episodic Residual codes; unclassified (1 source) 30 weeks gestation of ; Translations: [30 weeks gestation of ([facility])] Onset: 09-04-2024 Episodic Residual codes; unclassified (1 source) 24 weeks gestation of ; Translations: [24 weeks gestation of ([facility])] Onset: 08-21-2024 Episodic Residual codes; unclassified (1 [...] unspecified trimester; Translations: [History of delivery, currently ([facility])] Onset: 05-13-2024 Episodic Other complications of (1 source) Supervision of high risk , unspecified, second trimester; Translations: [Supervision of high risk in second trimester ([facility])] Onset: 07-24-2024 Episodic Other complications of (1 [...] Range Facility Examination level ultrasound on 10-15-2024 [facility] Radiology Study observation (narrative) [facility] ROUTINE, GROUP B ST REPTOCOCCUS BY PCRon 10-15-2024 ROUTINE, GROUP B STREPTOCOCCUS BY PCR Not detected Normal [facility] Comment on above: Performed By: #### G BPCR ####[facility] LABCLIA [id number] [place] [address] [place] URINE OB DIP B/Oon Glucose Ql (U) Negative Neg mg/dL [facility] Protein.monoclonal (U) [Mass/Vol] Negative Neg mg/dL [facility] CBC panel Auto (Bld)on 10-02 Erythrocyte distribution width (RBC) [Ratio] 12.7 % Normal 11.5-15.0 [facility] Comment on above: Order Comment: Speci men Type: BLOOD SPECIMENOrdering Facility: [facility] Address: [address] [place] [address] Performed By: #### 5 8410-2 ####[facility] HOSPITALNCLIA [id number] [place] [address] [place] Hematocrit (Bld) [Volume fraction] 30.6 % Low 36.0-46.0 [facility] Comment on above: Order Comment: Speci men Type: BLOOD SPECIMENOrdering Facility: [facility] Address: [address] [place] [address] Performed By: #### 5 8410-2 ####[facility] SIVAKUMARWLUISLIA [id number] [place] [address] [place] Hemoglobin (Bld) [Mass/Vol] 10.2 g/dL Low 11.5-15.5 [facility] Comment on above: Order Comment: Speci men Type: BLOOD SPECIMENOrdering Facility: [facility] Address: [address] [place] [address] Performed By: #### 5 8410-2 ####[facility] HOSPITALLUISLIA [id number] [place] [address] [place] MCH (RBC) [Entitic mass] 29.1 pg Normal 26.0-34.0 [facility] Comment on above: Order Comment: Speci men Type: BLOOD SPECIMENOrdering Facility: [facility] Address: [address] [place] [address] Performed By: #### 5 8410-2 ####[facility] SYSTEMWLUISLIA [id number] [place] [address] [place] MCHC (RBC) [Mass/Vol] 33.3 g/dL Normal 30.5-36.[address] [facility] Comment on above: Order Comment: Speci men Type: BLOOD SPECIMENOrdering Facility: [facility] Address: [address] [place] [address] Performed By: #### 5 8410-2 ####[facility] HOSPITALNCLIA [id number] [place] [address] [place] MCV (RBC) [Entitic vol] 87.4 fL Normal 80.0-100.0 [facility] Comment on above: Order Comment: Speci men Type: BLOOD SPECIMENOrdering Facility: [facility] Address: [address] [place] [address] Performed By: #### 5 8410-2 ####[facility] [id number] [place] [address] [place] Nucleated RBC (Bld) [#/Vol] 10*3/uL Normal <0.01 [facility] Comment on above: Order Comment: Speci men Type: BLOOD SPECIMENOrdering Facility: [facility] Address: [address] [place] [address] Performed By: #### 5 8410-2 ####[facility] HOSPITALNCSALT [facility] [id number] [place] [address] [place] Platelet mean volume (Bld) [Entitic vol] 9.9 fL Normal 9.0-12.7 [facility] Comment on above: Order Comment: Speci men Type: BLOOD SPECIMENOrdering Facility: [facility] Address: [address] [place] [address] Performed By: #### 5 8410-2 ####[facility]PITALA [id number] [place] [address] [place] Platelets (Bld) [#/Vol] 226 10*3/uL Normal 150-400 [facility] Comment on above: Order Comment: Speci men Type: BLOOD SPECIMENOrdering Facility: [facility] Address: [address] [place] [address] Performed By: #### 5 8410-2 ####[facility] HOSPITALNCLI [id number] [place] [address] [place] RBC (Bld) [#/Vol] 3.50 10*6/uL Low 3.90-5.20 [facility] Comment on above: Order Comment: Speci men Type: BLOOD SPECIMENOrdering Facility: [facility] Address: [address] [place] [address] Performed By: #### 5 8410-2 ####[facility] PRIYA CHINCLIA [id number] [place] [address] [place] WBC (Bld) [#/Vol] 11.08 10*3/uL High 3.70-11.00 [facility] Comment on above: Order Comment: Speci men Type: BLOOD SPECIMENOrdering Facility: [facility] Address: [address] [place] [address] Performed By: #### 5 8410-2 ####[facility] HOSPITALNCSALT [facility] [id number] [place] [address] [place] [facility] Examination level ultrasound on 09-19-2024 [facility] Examination level ultrasound on 09-18-2024 Radiology Study observation (narrative) [facility] CBC panel Auto (Bld)on 08-21 Erythrocyte distribution width (RBC) [Ratio] 12.3 % Normal 11.5-15.0 [facility] Comment on above: Order Comment: Speci men Type: BLOOD SPECIMENOrdering Facility: [facility] Address: [address] [place] [address] Performed By: #### 5 8410-2 ####[facility] SIVAKUMARSPRING HILLNCRICHA [id number] [place] [address] [place] Hematocrit (Bld) [Volume fraction] 31.6 % Low 36.0-46.0 [facility] Comment on above: Order Comment: Speci men Type: BLOOD SPECIMENOrdering Facility: [facility] Address: [address] [place] [address] Performed By: #### 5 8410-2 ####[facility] HOSPITALNCLIA [id number] [place] [address] [place] Hemoglobin (Bld) [Mass/Vol] 10.6 g/dL Low 11.5-15.5 [facility] Comment on above: Order Comment: Speci men Type: BLOOD SPECIMENOrdering Facility: [facility] Address: [address] [place] [address] Performed By: #### 5 8410-2 ####[facility] [id number] [place] [address] [place] MCH (RBC) [Entitic mass] 30.1 pg Normal 26.0-34.0 [facility] Comment on above: Order Comment: Speci men Type: BLOOD SPECIMENOrdering Facility: [facility] Address: [address] [place] [address] Performed By: #### 5 8410-2 ####[facility] [id number] [place] [address] [place] MCHC (RBC) [Mass/Vol] 33.5 g/dL Normal 30.5-36.[address] [facility] Comment on above: Order Comment: Speci men Type: BLOOD SPECIMENOrdering Facility: [facility] Address: [address] [place] [address] Performed By: #### 5 8410-2 ####[facility] HOSPITALNCSALT [facility] [id number] [place] [address] [place] MCV (RBC) [Entitic vol] 89.8 fL Normal 80.0-100.0 [facility] Comment on above: Order Comment: Speci men Type: BLOOD SPECIMENOrdering Facility: [facility] Address: [address] [place] [address] Performed By: #### 5 8410-2 ####[facility] [id number] [place] [address] [place] Nucleated RBC (Bld) [#/Vol] 10*3/uL Normal <0.01 [facility] Comment on above: Order Comment: Speci men Type: BLOOD SPECIMENOrdering Facility: [facility] Address: [address] [place] [address] Performed By: #### 5 8410-2 ####[facility] [id number] [place] [address] [place] Platelet mean volume (Bld) [Entitic vol] 9.3 fL Normal 9.0-12.7 [facility] Comment on above: Order Comment: Speci men Type: BLOOD SPECIMENOrdering Facility: [facility] Address: [address] [place] [address] Performed By: #### 5 8410-2 ####[facility] SIVAKUMARSPRING HILLDEV [id number] [place] [address] [place] Platelets (Bld) [#/Vol] 272 10*3/uL Normal 150-400 [facility] Comment on above: Order Comment: Speci men Type: BLOOD SPECIMENOrdering Facility: [facility] Address: [address] [place] [address] Performed By: #### 5 8410-2 ####[facility] SIVAKUMARSPRING HILLNCRICHA [id number] [place] [address] [place] RBC (Bld) [#/Vol] 3.52 10*6/uL Low 3.90-5.20 [facility] Comment on above: Order Comment: Speci men Type: BLOOD SPECIMENOrdering Facility: [facility] Address: [address] [place] [address] Performed By: #### 5 8410-2 ####[facility] HOSPITALNCLIA [id number] [place] [address] [place] WBC (Bld) [#/Vol] 10.84 10*3/uL Normal 3.70-11.00 [facility] Comment on above: Order Comment: Speci men Type: BLOOD SPECIMENOrdering Facility: [facility] Address: [address] [place] [address] [place] [address] Performed By: #### 5 8410-2 ####[facility] PRIYA PASCAL [id number] [place] [id number] [facility] Carson 08-21-2024 CNPN Telephone (OBGYWM) -------- KIERA ARVIZU ([id number]) 1 F Date Time Provider Department 08/21/24 [...] Status:Closed by TYRELL KIDD on 09/03/24 Normal [facility] GESTATIONAL GLUCOSE SCREEN, 1-HOUR, 50 GRAM, NON-FASTINGon 08-21-2024 Glucose [Mass/Vol] 122 mg/dL Normal 74-134 [facility] Comment on above: Order Comment: Speci my Type: BLOOD SPECIMENOrdering Facility: [facility] Address: [address] [place] [address] Result Comment: [facility] [employer] of Obstetricians and Gynecologists (Mohsen/Blessing) guidelines state a gestational diabetes mellitus positive screen is made, in women not previously diagnosed with overt diabetes, when the 1 hr plasma glucose level is equal to or above 140 mg/dL. The [facility] Electrical Engineering Intern and [facility] [place] recommends a 135 mg/dL cutoff. Performed By: #### G LTGST ####[facility] [id number] [place] [address] [place] Reagin and Treponema pallidu m IgG and IgM [Interp]on 08-21-2024 T. pallidum IgG+IgM IA Ql (S) Non-Reactive Normal Nonreactive [facility] Comment on above: Order Comment: Speci men Type: BLOOD SPECIMENOrdering Facility: [facility] Address: [address] [place] [id number] Performed By: #### 7 3752-8 ####[facility] LABCLIA [id number] [place] [id number] [place] Reagin+T pallidum IgG+IgM Se rPl-Impon 08-21-2024 Reagin and Treponema pallidum IgG and IgM [Interp] Cannot exclude recent Treponemal infection if specimen collected within 7-10 days after appearance of suspect lesions or 2-3 weeks after an exposure. Clinical correlation is required. Normal [facility] Comment on above: Order Comment: Speci men Type: BLOOD SPECIMENOrdering Facility: [facility] Address: [address] [place] [address] Performed By: #### 7 3752-8 ####[facility] LABCLIA [id number] [address] [address] [place] Examination level ultrasound [...] by U/S: 11/01/2024 Assigned: based on stated DEI, selected on 05/14/2024 Assigned GA 20 w [...] 15 oz EFW by: Hadlock (HC-AC-FL) Extended Actuarial Analyst 4.5 mm CM 4.3 mm 27% Nicolaides [...] normal LVOT view: normal 3-vessel view: normal 6-xhhrom-tcvqpqp view: normal Heart / Thorax Situs: situs [...] Read By: Darnell Blank M.D. MATERNAL MEDICINE [facility] Radiology Study observation (narrative) Kolby zamudio [facility] Carson 05-20-2024 SHIRAZ Telephone (ALIYAWM) -------- KIERA ARVIZU ([id number]) 1 F Date Time Provider Department 05/20/24 MIK MENDOZA During your visit today, we recorded the following information about you: Katherine Philip, RN 05/20/2024 2:29 PM Signed 15w1d Patient called to inquire about her results of BlzordcL38. Advised that provider has not reviewed her labs as of yet. Notified of baby's gender per patient and 's request. Katherine Philip RN Allergies As of Date: 05/20/2024 (No Known Allergies) Date Reviewed: 03/28/2024 Reviewed by: Mik Mendoza APRN.CORE BLOWER OPERATOR - Fully Assessed Reason for Visit: Question [...] Status:Closed by KATHERINE PHILIP on 05/20/24 Normal [facility] CBC W Auto Differential pane l (Bld)on 05-14-2024 Basophils (Bld) [#/Vol] 0.07 10*3/uL Normal <0.11 [facility] Comment on above: Order Comment: Speci men Type: BLOOD SPECIMENOrdering Facility: [facility] Address: [address] [place] [address] Performed By: #### 5 7021-8 ####[facility] MILLWNCLIA [id number] [place] [address] [place] Basophils/100 WBC (Bld) 0.7 % Normal [facility] Comment on above: Order Comment: Speci men Type: BLOOD SPECIMENOrdering Facility: [facility] Address: [address] [place] [address] Performed By: #### 5 7021-8 ####[facility] SYSTEMWNCLIA [id number] [place] [address] [place] Differential cell count method Nom (Bld) Auto Normal [facility] Comment on above: Order Comment: Speci men Type: BLOOD SPECIMENOrdering Facility: [facility] Address: [address] [place] [address] Performed By: #### 5 7021-8 ####[facility] SYSTEMWNCLIA [id number] [place] [address] [place] Eosinophils (Bld) [#/Vol] 0.63 10*3/uL High <0.46 [facility] Comment on above: Order Comment: Speci men Type: BLOOD SPECIMENOrdering Facility: [facility] Address: [address] [place] [address] Performed By: #### 5 7021-8 ####[facility] MILLTOWNCLIA [id number] [place] [address] [place] Eosinophils/100 WBC (Bld) 5.9 % Normal [facility] Comment on above: Order Comment: Speci men Type: BLOOD SPECIMENOrdering Facility: [facility] Address: [address] [place] [address] Performed By: #### 5 7021-8 ####[facility] MILLWNCLIA [id number] [place] [address] [place] Erythrocyte distribution width (RBC) [Ratio] 12.8 % Normal 11.5-15.0 [facility] Comment on above: Order Comment: Speci men Type: BLOOD SPECIMENOrdering Facility: [facility] Address: [address] [place] [address] Performed By: #### 5 7021-8 ####[facility] HOSPITALDEV [id number] [place] [address] [place] Hematocrit (Bld) [Volume fraction] 35.2 % Low 36.0-46.0 [facility] Comment on above: Order Comment: Speci men Type: BLOOD SPECIMENOrdering Facility: [facility] Address: [address] [place] [address] Performed By: #### 5 7021-8 ####[facility] HOSPITALNCCHELSIE [id number] [place] [address] [place] Hemoglobin (Bld) [Mass/Vol] 12.1 g/dL Normal 11.5-15.5 [facility] Comment on above: Order Comment: Speci men Type: BLOOD SPECIMENOrdering Facility: [facility] Address: [address] [place] [address] Performed By: #### 5 7021-8 ####[facility]AL HOSPITALLUISLIMelanie [id number] [place] [address] [place] Immature granulocytes (Bld) [#/Vol] 0.05 10*3/uL Normal <0.10 [facility] Comment on above: Order Comment: Speci men Type: BLOOD SPECIMENOrdering Facility: [facility] Address: [address] [place] [address] Performed By: #### 5 7021-8 ####[facility] HOSPITALNCLIA [id number] [place] [address] [place] Immature granulocytes/100 WBC (Bld) 0.5 % Normal [facility] Comment on above: Order Comment: Speci men Type: BLOOD SPECIMENOrdering Facility: [facility] Address: [address] [place] [address] Performed By: #### 5 7021-8 ####[facility] SIVAKUMARZenyNCRICHA [id number] [place] [address] [place] Lymphocytes (Bld) [#/Vol] 2.16 10*3/uL Normal 1.00-4.00 [facility] Comment on above: Order Comment: Speci men Type: BLOOD SPECIMENOrdering Facility: [facility] Address: [address] [place] [address] Performed By: #### 5 7021-8 ####[facility] [id number] [place] [address] [place] Lymphocytes/100 WBC (Bld) 20.2 % Normal [facility] Comment on above: Order Comment: Speci men Type: BLOOD SPECIMENOrdering Facility: [facility] Address: [address] [place] [address] Performed By: #### 5 7021-8 ####[facility]AL HOSPITALNCSALT [facility] [id number] [place] [address] [place] MCH (RBC) [Entitic mass] 30.4 pg Normal 26.0-34.0 [facility] Comment on above: Order Comment: Speci men Type: BLOOD SPECIMENOrdering Facility: [facility] Address: [address] [place] [address] Performed By: #### 5 7021-8 ####[facility]AL HOSPITALNCA [id number] [place] [address] [place] MCHC (RBC) [Mass/Vol] 34.4 g/dL Normal 30.5-36.[address] [facility] Comment on above: Order Comment: Speci men Type: BLOOD SPECIMENOrdering Facility: [facility] Address: [address] [place] [address] Performed By: #### 5 7021-8 ####[facility] MILLWNCLIA [id number] [place] [address] [place] MCV (RBC) [Entitic vol] 88.4 fL Normal 80.0-100.0 [facility] Comment on above: Order Comment: Speci men Type: BLOOD SPECIMENOrdering Facility: [facility] Address: [address] [place] [address] Performed By: #### 5 7021-8 ####[facility] HEALTHLIA [id number] [place] [address] [place] Monocytes (Bld) [#/Vol] 0.47 10*3/uL Normal <0.87 [facility] Comment on above: Order Comment: Speci men Type: BLOOD SPECIMENOrdering Facility: [facility] Address: [address] [place] [address] Performed By: #### 5 7021-8 ####[facility] HEALTHLIA [id number] [place] [address] [place] Monocytes/100 WBC (Bld) 4.4 % Normal [facility] Comment on above: Order Comment: Speci men Type: BLOOD SPECIMENOrdering Facility: [facility] Address: [address] [place] [address] Performed By: #### 5 7021-8 ####[facility] HEALTHLIA [id number] [place] [address] [place] Neutrophils (Bld) [#/Vol] 7.31 10*3/uL Normal 1.45-7.50 [facility] Comment on above: Order Comment: Speci men Type: BLOOD SPECIMENOrdering Facility: [facility] Address: [address] [place] [address] Performed By: #### 5 7021-8 ####[facility] HEALTHLIA [id number] [place] [address] [place] Neutrophils/100 WBC (Bld) 68.3 % Normal [facility] Comment on above: Order Comment: Speci men Type: BLOOD SPECIMENOrdering Facility: [facility] Address: [address] [place] [address] Performed By: #### 5 7021-8 ####[facility] [id number] [place] [address] [place] Nucleated RBC (Bld) [#/Vol] 10*3/uL Normal <0.01 [facility] Comment on above: Order Comment: Speci men Type: BLOOD SPECIMENOrdering Facility: [facility] Address: [address] [place] [address] Performed By: #### 5 7021-8 ####[facility] HOSPITALNCSALT [facility] [id number] [place] [address] [place] Nucleated RBC/100 WBC (Bld) [Ratio] 0.0 /100 WBC Normal [facility] Comment on above: Order Comment: Speci men Type: BLOOD SPECIMENOrdering Facility: [facility] Address: [address] [place] [address] Performed By: #### 5 7021-8 ####[facility] [id number] [place] [address] [place] Platelet mean volume (Bld) [Entitic vol] 9.5 fL Normal 9.0-12.7 [facility] Comment on above: Order Comment: Speci men Type: BLOOD SPECIMENOrdering Facility: [facility] Address: [address] [place] [address] Performed By: #### 5 7021-8 ####[facility] HOSPITALNCLI [id number] [place] [address] [place] Platelets (Bld) [#/Vol] 282 10*3/uL Normal 150-400 [facility] Comment on above: Order Comment: Speci men Type: BLOOD SPECIMENOrdering Facility: [facility] Address: [address] [place] [address] Performed By: #### 5 7021-8 ####[facility] SYSTEMWNCLIA [id number] [place] [address] [place] RBC (Bld) [#/Vol] 3.98 10*6/uL Normal 3.90-5.20 [facility] Comment on above: Order Comment: Speci men Type: BLOOD SPECIMENOrdering Facility: [facility] Address: [address] [place] [address] Performed By: #### 5 7021-8 ####[facility] HOSPITALNCLIA [id number] [place] [address] [place] WBC (Bld) [#/Vol] 10.69 10*3/uL Normal 3.70-11.00 [facility] Comment on above: Order Comment: Speci men Type: BLOOD SPECIMENOrdering Facility: [facility] Address: [address] [place] [address] Performed By: #### 5 7021-8 ####[facility] HOSPITALNCLIA [id number] [place] [address] [place] Comprehensive metabolic 2000 panelon 05-14-2024 Albumin [Mass/Vol] 4.1 g/dL Normal 3.9-4.9 [facility] Comment on above: Order Comment: Speci men Type: BLOOD SPECIMENOrdering Facility: [facility] Address: [address] [place] [address] Performed By: #### 2 4323-8 ####[facility] HOSPITALNCLIA [id number] [place] [address] [place] ALP [Catalytic activity/Vol] 45 U/L Normal 34-123 [facility] Comment on above: Order Comment: Speci men Type: BLOOD SPECIMENOrdering Facility: [facility] Address: [address] [place] [address] Performed By: #### 2 4323-8 ####[facility] PRIYA MILLTOWNCLIA [id number] [place] [address] [place] ALT [Catalytic activity/Vol] 6 U/L Low 7-38 [facility] [facility] Comment on above: Order Comment: Speci men Type: BLOOD SPECIMENOrdering Facility: [facility] Address: [address] [place] [address] Performed By: #### 2 4323-8 ####[facility] PRIYA MILLTOWNCLIA [id number] [place] [address] [place] Anion gap [Moles/Vol] 9 mmol/L Normal 8-[address] [facility] Comment on above: Order Comment: Speci men Type: BLOOD SPECIMENOrdering Facility: [facility] Address: [address] [place] [address] Performed By: #### 2 4323-8 ####[facility] PRIYA MILLTOWNCLIA [id number] [place] [address] [place] AST [Catalytic activity/Vol] 13 U/L Normal 13-35 [facility] Comment on above: Order Comment: Speci men Type: BLOOD SPECIMENOrdering Facility: [facility] Address: [address] [place] [address] Performed By: #### 2 4323-8 ####[facility] PRIYA MILLTOWNCLIA [id number] [place] [address] [place] Bilirubin [Mass/Vol] 0.2 mg/dL Normal 0.2-1.3 [facility] Comment on above: Order Comment: Speci men Type: BLOOD SPECIMENOrdering Facility: [facility] Address: [address] [place] [address] Performed By: #### 2 4323-8 ####[facility] CLINICWNELIA [id number] [place] [address] [place] Calcium [Mass/Vol] 9.3 mg/dL Normal 8.5-10.2 [facility] Comment on above: Order Comment: Speci men Type: BLOOD SPECIMENOrdering Facility: [facility] Address: [address] [place] [address] Performed By: #### 2 4323-8 ####[facility] SYSTEMWNELIA [id number] [place] [address] [place] Chloride [Moles/Vol] 105 mmol/L Normal 98-107 [facility] Comment on above: Order Comment: Speci men Type: BLOOD SPECIMENOrdering Facility: [facility] Address: [address] [place] [address] Performed By: #### 2 4323-8 ####[facility] [id number] [place] [address] [place] CO2 [Moles/Vol] 22 mmol/L Normal 22-30 [facility] Comment on above: Order Comment: Speci men Type: BLOOD SPECIMENOrdering Facility: [facility] Address: [address] [place] [address] Performed By: #### 2 4323-8 ####[facility] SYSTEMWNCLIA [id number] [place] [address] [place] Creatinine [Mass/Vol] 0.64 mg/dL Normal 0.58-0.[address] [facility] Comment on above: Order Comment: Speci men Type: BLOOD SPECIMENOrdering Facility: [facility] Address: [address] [place] [address] Performed By: #### 2 4323-8 ####[facility] H[facility]ITALNCLIA [id number] [place] [address] [place] Creatinine and Glomerular filtration rate.predicted panel (S/P/Bld) 128 mL/min/1.73m??? Normal >=60 [facility] Comment on above: Order Comment: Salma pepe Type: BLOOD SPECIMENOrdering Facility: [facility] Address: [address] [place] [address] Result Comment: Kelly mated Glomerular Filtration Rate [...] actual GFR. Performed By: #### 2 4323-8 ####[facility] [id number] [place] [address] [place] Glucose [Mass/Vol] 81 mg/dL Normal 74-99 [facility] Comment on above: Order Comment: Salma pepe Type: BLOOD SPECIMENOrdering Facility: [facility] Address: [address] [place] [address] Result Comment: The [place] Diabetes Association (ADA) provides guidance for cutoff [...] Standards of Medical Care in Diabetes 2016, [place] Diabetes Association. Diabetes Care. 2016.39(Suppl 1). Performed By: #### 2 4323-8 ####[facility] [id number] [place] [address] [place] Potassium [Moles/Vol] 3.7 mmol/L Normal 3.7-5.[address] [facility] Comment on above: Order Comment: Speci men Type: BLOOD SPECIMENOrdering Facility: [facility] Address: [address] [place] [address] Performed By: #### 2 4323-8 ####[facility] PRIYA MILLTOWNCLIA [id number] [place] [address] [place] Protein [Mass/Vol] 6.8 g/dL Normal 6.3-8.0 [facility] Comment on above: Order Comment: Speci men Type: BLOOD SPECIMENOrdering Facility: [facility] Address: [address] [place] [address] Performed By: #### 2 4323-8 ####[facility] MILLDAVIDWLUISLIA [id number] [place] [address] [place] Sodium [Moles/Vol] 136 mmol/L Normal 136-144 [facility] Comment on above: Order Comment: Speci men Type: BLOOD SPECIMENOrdering Facility: [facility] Address: [address] [place] [address] Performed By: #### 2 4323-8 ####[facility] MILLTOWNCLIA [id number] [place] [address] [place] Urea nitrogen [Mass/Vol] 12 mg/dL Normal 7-21 [facility] Comment on above: Order Comment: Speci men Type: BLOOD SPECIMENOrdering Facility: [facility] Address: [address] [place] [address] Performed By: #### 2 4323-8 ####[facility] MILLTOWNCLIA [id number] [place] [address] [place] nuchal translucency me asured by USon 05-14-2024 Indication First trimester anatomic survey History of preeclampsia Impression The patient is referred for a first trimester anatomy scan including nuchal translucency measurement as clinically indicated. - Single, live, intrauterine . - [place] rump length measurement and biometry are consistent [...] view: visualized 4-chamber view with color: visualized 3-rwnywe-mkkeipk view: suboptimal Abdominal cord insertion: normal Stomach: [...] Read By: Darnell Blank M.D. MATERNAL MEDICINE [facility] Radiology Study observation (narrative) [facility] HBV surface Ag Ser Qlon 04-27 HBV surface Ag Ql (S) Negative Normal Negative [facility] Comment on above: Order Comment: Speci men Type: BLOOD SPECIMENOrdering Facility: [facility] Address: [address] [place] [address] Performed By: #### 5 195-3, 71815-6, 37316-9 ####[facility] LABCLIA [id number] [place] [address] [place] HCV Ab Ser Qlon 05-14-2024 HCV Ab Ql (S) Negative Normal Negative [facility] Comment on above: Order Comment: Speci men Type: BLOOD SPECIMENOrdering Facility: [facility] Address: [address] [place] [address] Result Comment: The result suggests no evidence of active infection with Hepatitis C virus. Should recent infection be suspected, repeat testing may be considered 4-6 weeks after this draw. Performed By: #### 1 6128-1 ####[facility] LABCLIA [id number] [place] [address] [place] HIV 1+2 Ab IA Qlon HIV 1 and 2 Ab IA.rapid Nom (S/P/Bld) Normal [facility] Comment on above: Order Comment: Speci men Type: BLOOD SPECIMENOrdering Facility: [facility] Address: [address] [place] [address] Result Comment: Test not indicated. Performed By: #### 5 195-3, 39078-6, 00184-0 ####[facility] LABCLIA [id number] [place] [address] [place] HIV 1+2 Ab+HIV1 p24 Ag IA Ql Non-Reactive Normal Nonreactive [facility] Comment on above: Order Comment: Speci men Type: BLOOD SPECIMENOrdering Facility: [facility] Address: [address] [place] [address] Performed By: #### 5 195-3, 84211-7, 73467-2 ####[facility] LABIA [id number] [place] [address] [place] HIV immunoassay testing algorithm interpretation (S/P/Bld) [Interp] Normal [facility] Comment on above: Order Comment: Speci men Type: BLOOD SPECIMENOrdering Facility: [facility] Address: [address] [place] [address] Result Comment: No e vidence of HIV-1 or HIV-2 infection. Should recent infection be suspected, repeat testing may be considered 2-3 weeks after this draw. [place] Rev. Code 3701.243(E): This information has been [...] or diagnoses. Performed By: #### 5 195-3, 76600-5, 74663-1 ####[facility] LABCLIA [id number] [place] [address] [place] HbA1c (Bld)on 05-14-2024 Average glucose Estimated from glycated hemoglobin (Bld) [Mass/Vol] 85 mg/dL Normal [facility] Comment on above: Order Comment: Speci men Type: BLOOD SPECIMENOrdering Facility: [facility] Address: [address] [place] [address] Result Comment: eAG: (Estimated average glucose) is a calculated value from HgbA1c and is hardware supplies sales representative of the average blood glucose level in the last 2-3 month period. Performed By: #### 5 5454-3 ####[facility] LABCLIA [id number] [place] [address] [place] HbA1c (Bld) [Mass fraction] 4.6 % Normal 4.3-5.6 [facility] Comment on above: Order Comment: Speci men Type: BLOOD SPECIMENOrdering Facility: [facility] Address: [address] [place] [address] Result Comment: [place] Diabetes Association guidelines indicate that patients with HgbA1c in the range 5.7-6.4% are at increased risk for development of diabetes, and intervention by lifestyle modification may be beneficial. HgbA1c greater or equal to 6.5% is considered diagnostic of diabetes. Performed By: #### 5 5454-3 ####[facility] LABCLIA [id number] [place] [address] [place] [id number] PLUSon 05-14-2024 Cell-free DNA./Cell-free DNA.total Dosage of chromosome-specific cfDNA (cfDNA) [Molar fraction] 16% Normal [facility] Comment on above: Order Comment: Speci men Type: BLOOD SPECIMENOrdering Facility: [facility] Address: [address] [place] [address] Performed By: #### M AT21 ####[facility] LABCLIA [id number] [place] [address] Chr 13+18+21+X+Y aneuploidy Dosage of chromosome-specific cfDNA Ql (cfDNA) Negative Normal [facility] Comment on above: Order Comment: Speci men Type: BLOOD SPECIMENOrdering Facility: [facility] Address: [address] [place] [address] Performed By: #### M AT21 ####[facility] LABCLIA [id number] [place] [address] Chr 21 trisomy Dosage of chromosome-specific cfDNA Ql (cfDNA) Negative Normal [facility] Comment on above: Order Comment: Speci men Type: BLOOD SPECIMENOrdering Facility: [facility] Address: [address] [place] [address] Performed By: #### M AT21 ####[facility] LABCLIA [id number] [place] [address] Chr X and Y aneuploidy risk Sequencing Ql (cfDNA) [Interp] Not detected Normal [facility] Comment on above: Order Comment: Speci men Type: BLOOD SPECIMENOrdering Facility: [facility] Address: [address] [place] [address] Result Comment: Not Detected Not Detected Performed By: #### M AT21 ####[facility] LABCLIA [id number] [place] [address] Citation Miguelito (Reference lab test) Comment Normal [facility] Comment on above: Order Comment: Speci men Type: BLOOD SPECIMENOrdering Facility: [facility] Address: [address] [place] [address] Result Comment: 1. P arnoldo COONEY, et al. Soco Med. 2012;14(3):296-305. 2. Jama HOWARD et al. Prenat Diag. 2013;33(6):591-597. 3. Apple C, et al. Clin Chem. 2015 Apr;61(4):608-616. 4. Negin COONEY, et al. Soco Med. 2011;13(11):913-920. 5. ACOG/SMFM Practice Bulletin No. 226, Dec 2019. Performed By: #### M AT21 ####[facility] LABCLIA [id number] [place] [address] Gestational age Estimated from conception date Lui Normal [facility] Comment on above: Order Comment: Speci men Type: BLOOD SPECIMENOrdering Facility: [facility] Address: [address] [place] [address] Performed By: #### M AT21 ####[facility] LABCLIA [id number] [place] [address] GESTATIONALAGE AGE > OR = 9W Yes Normal [facility] Comment on above: Order Comment: Speci men Type: BLOOD SPECIMENOrdering Facility: [facility] Address: [address] [place] [address] Performed By: #### M AT21 ####[facility] LABCLIA [id number] [place] [address] Laboratory comment Miguelito (Report) Comment Normal [facility] Comment on above: Order Comment: Specgreyson pepe Type: BLOOD SPECIMENOrdering Facility: [facility] Address: [address] [place] [address] Result Comment: The MaterniT(R) 21 PLUS laboratory-developed test (LDT) analyzes circulating cell-free DNA from a maternal blood sample. This test is used for screening purposes and not diagnostic. Clinical correlation is recommended. Validation data on twin pregnancies is limited and the ability of this test to detect aneuploidy in higher multiple gestations has not yet been validated. Performed By: #### M AT21 ####[facility] LABCLIA [id number] [place] [id number] payroll director name Nom (Provider) Comment Normal [facility] Comment on above: Order Comment: Speci my Type: BLOOD SPECIMENOrdering Facility: [facility] Address: [address] [place] [address] Result Comment: This specimen showed an expected representation of chromosome 21, 18 and 13 material. Clinical correlation is suggested. Comment Glen Salvador MD, PhD, Director, [facility] Performed By: #### M AT21 ####[facility] LABCLIA [id number] [place] [id number] LIMITATIONS OF THE TEST Comment Normal [facility] Comment on above: Order Comment: Salma pepe Type: BLOOD SPECIMENOrdering Facility: [facility] Address: [address] [place] [address] Result Comment: Jaimee dickerson the results of [...] and Fragmin(R)). Performed By: #### M AT21 ####[facility] LABCLIA [id number] [place] [address] Monosomy X risk Dosage of chromosome-specific cfDNA Ql (Plasma cell-free+WBC DNA) [Interp] Not detected Normal [facility] Comment on above: Order Comment: Speci men Type: BLOOD SPECIMENOrdering Facility: [facility] Address: [address] [place] [address] Performed By: #### M AT21 ####[facility] LABCLIA [id number] [place] [address] NEGATIVE PREDICTIVE VALUE Note Normal [facility] Comment on above: Order Comment: Salma pepe Type: BLOOD SPECIMENOrdering Facility: [facility] Address: [address] [place] [address] Result Comment: The Negative Predictive Value (NPV) for trisomy 21, 18, and 13 is greater than 99%. The NPV for SCA and ESS cannot be calculated as SCA and ESS are only reported when an abnormality is detected. Performed By: #### M AT21 ####[facility] LABCLIA [id number] [place] [address] PERFORMANCE CHARACTERISTICS Note Normal [facility] Comment on above: Order Comment: Salma pepe Type: BLOOD SPECIMENOrdering Facility: [facility] Address: [address] [place] [address] Result Comment: ! Sex ! Accuracy: 99.4% [...] ! ! ! * As reported in [facility] database nstd37 [https://www.ncbi.nlm.nih.gov/dbvar/studies/nstd37/ ] # [...] gestation only. Performed By: #### M AT21 ####[facility] DiscoveryIA [id number] [place] [address] POSITIVE PREDICTIVE VALUE N/A Normal [facility] Comment on above: Order Comment: Speci men Type: BLOOD SPECIMENOrdering Facility: [facility] Address: [address] [place] [address] Performed By: #### M AT21 ####[facility] LABCLIA [id number] [place] [address] Reference Lab Test Method Comment Normal [facility] Comment on above: Order Comment: Speci men Type: BLOOD SPECIMENOrdering Facility: [facility] Address: [address] [place], [place] [address] Result Comment: See Notes Circulating cell-free DNA [...] and 22. Performed By: #### M AT21 ####[facility] [id number] [place] [address] Service comment (Unsp spec) [Interp] Comment Normal [facility] Comment on above: Order Comment: Speci men Type: BLOOD SPECIMENOrdering Facility: [facility] Address: [address] [place], [place] [address] Result Comment: See Notes [employer] is a subsidiary of [employer], using the brand [employer]. This test was developed and its performance characteristics determined by [employer]. It has not been cleared or approved by the Food and Drug Administration. This laboratory is certified under the Clinical Laboratory Improvement Amendments (CLIA) as qualified to perform high complexity clinical laboratory testing and accredited by the College of [place]uvian Pathologists (CAP). If there is future clinical need for adding MaterniT GENOME testing, this specimen will be available until term. [facility] samples will not be retained beyond 60 days. [facility] patients will have to send a new sample for re-sequencing ([facility] Test Code: [id number]). Performed By: #### M AT21 ####[facility] DiscoveryIA [id number] [place] [address] Sex Dosage of chromosome-specific cfDNA Nom (cfDNA) Comment Normal [facility] Comment on above: Order Comment: Speci men Type: BLOOD SPECIMENOrdering Facility: [facility] Address: [address] [place] [address] Result Comment: Cons istent with Female Performed By: #### M AT21 ####[facility] LABCLIA [id number] [place] [address] Test performance information Miguelito (Unsp spec) Comment Normal [facility] Comment on above: Order Comment: Speci men Type: BLOOD SPECIMENOrdering Facility: [facility] Address: [address] [place] [address] Result Comment: The performance characteristics of the MaterniT(R) 21 PLUS laboratory-developed test (LDT) have been determined in a clinical validation study with women at increased risk for chromosomal aneuploidy.[1-4] Performed By: #### M AT21 ####[facility] LABCLIA [id number] [place] [address] Trisomy 13 risk Dosage of chromosome-specific cfDNA Ql (cfDNA) [Interp] Negative Normal [facility] Comment on above: Order Comment: Speci men Type: BLOOD SPECIMENOrdering Facility: [facility] Address: [address] [place] [address] Performed By: #### M AT21 ####[facility] LABCLIA [id number] [place] [address] Trisomy 18 risk Dosage of chromosome-specific cfDNA Ql (Plasma cell-free+WBC DNA) [Interp] Negative Normal [facility] Comment on above: Order Comment: Speci men Type: BLOOD SPECIMENOrdering Facility: [facility] Address: [address] [place] [address] Performed By: #### M AT21 ####[facility] LABCLIA [id number] [place] [address] Prot/Creat Uron 05-14-2024 Protein/Creatinine (U) [Mass ratio] 0.06 mg/mg Normal <0.15 [facility] Comment on above: Order Comment: Speci men Type: URINE SPECIMENOrdering Facility: [facility] Address: [address] [place] [address] Result Comment: Adul t Proteinuria Categories: <0.15 mg/mg is considered normal to mildly increased 0.15 - 0.50 mg/mg is considered moderately increased >0.50 mg/mg is considered severely increased KDIGO. (2013). KDIGO 2012 Clinical Practice Guideline for the Evaluation and Management of Chronic Kidney Disease. Official Journal of the International Society of Nephrology, 3(1), 1-150. Performed By: #### 2 890-2 ####[facility]ATORYCLIA [id number] [place] [id number] [place] Protein/Creatinine (U) [Mass ratio]on 05-14-2024 Creatinine (U) [Mass/Vol] 215.9 mg/dL Normal 20.0-300.0 [facility] Comment on above: Order Comment: Speci men Type: URINE SPECIMENOrdering Facility: [facility] Address: [address] [place] [address] Performed By: #### 2 890-2 ####[facility] LABORATORYCLIA [id number] [address] [facility] OF [facility] Protein (U) [Mass/Vol] 12 mg/dL Normal 0-[address] [facility] Comment on above: Order Comment: Speci men Type: URINE SPECIMENOrdering Facility: [facility] Address: [address] [place] [address] Performed By: #### 2 890-2 ####[facility] LABORATORYCLIA [id number] [address] RUBELLA IGG ANTIBODYon 05-14 RUBELLA IGG AB, QUAL Positive Normal Positive [facility] Comment on above: Order Comment: Speci men Type: BLOOD SPECIMENOrdering Facility: [facility] Address: [address] [place] [address] Result Comment: The result suggests recent or past exposure to Rubella virus or history of Rubella vaccination. Positive result may also be seen due to presence of passively-transferred antibodies. Please correlate with patient's history. Performed By: #### R UBIGG ####[facility] LABCLIA [id number] [address] [place] [address] [place] Reagin and Treponema pallidu m IgG and IgM [Interp]on 05-14-2024 T. pallidum IgG+IgM IA Ql (S) Non-Reactive Normal Nonreactive [facility] Comment on above: Order Comment: Salma pepe Type: BLOOD SPECIMENOrdering Facility: [facility] Address: [address] [place] [address] Performed By: #### 5 195-3, 33142-7, 05399-7 ####[facility] LABIA [id number] [place] [address] [place] Reagin+T pallidum IgG+IgM Se rPl-Impon 05-14-2024 Reagin and Treponema pallidum IgG and IgM [Interp] Cannot exclude recent Treponemal infection if specimen collected within 7-10 days after appearance of suspect lesions or 2-3 weeks after an exposure. Clinical correlation is required. Normal [facility] Comment on above: Order Comment: Salma pepe Type: BLOOD SPECIMENOrdering Facility: [facility] Address: [address] [place] [address] Performed By: #### 5 195-3, 13189-0, 32962-8 ####[facility] LABIA [id number] [place] [id number] [place] TSH SerPl-aCncon 05-14-2024 TSH Qn 2.570 m[IU]/L Normal 0.270-4.200 [facility] Comment on above: Order Comment: Salma pepe Type: BLOOD SPECIMENOrdering Facility: [facility] Address: [address] [place] [address] Result Comment: If t he patient is , TSH reference range varies by gestational period: First Trimester (weeks 9-12): 0.180-2.990 mIU/L Second Trimester: 0.110-3.980 mIU/L Third Trimester: 0.480-4.710 mIU/L Dennis Grimaldo et al. A Practical Approach for the Verifications and Determination of Site- and Trimester-Specific Reference Intervals for Thyroid Function tests in . Thyroid, 2019:29:3:412-420. Micky Dickerson, et al. 2017 Guidelines of the [place] Thyroid Association for the Diagnosis and Management of Thyroid Disease during and the . Thyroid, 2017:27:3:315-389. Performed By: #### 3 016-3 ####[facility] LABCLIA [id number] [place] [address] [place] TYPE + SCREEN PRENATALon ABO A Normal [facility] Comment on above: Order Comment: Speci men Type: BLOOD SPECIMENOrdering Facility: [facility] Address: [address] [place] [address] Performed By: #### T SPN ####[facility] BLOOD BANKIA [id number] [address] [place] Rh Nom (Bld) Positive Normal [facility] Comment on above: Order Comment: Speci men Type: BLOOD SPECIMENOrdering Facility: [facility] Address: [address] [place] [address] Performed By: #### T SPN ####[facility] BLOOD BANKIA [id number] [address] TYPE AND SCREEN EXPIRATION 05/17/2024 23:59 Normal [facility] Comment on above: Order Comment: Speci men Type: BLOOD SPECIMENOrdering Facility: [facility] [facility] Address: [address] [place] [address] Performed By: #### T SPN ####CC [facility] BLOOD BANKIA [id number] [place] [address] [place] CNCOon 04-02-2024 CNCO Letter Text Normal [facility] CNPNon 03-29-2024 CNPN Telephone (MiName) -------- KIERA ARVIZU ([id number]) 1 F Date Time Provider Department 03/29/24 VAUGHN HOOD During your visit today, we recorded the following information about you: Vaughn Hood RN 03/29/2024 9:45 AM Signed 1st risk assessment form submitted 03/29/2024 7w 5d today Allergies As of Date: 03/29/2024 (Not on File) Date Reviewed: 03/28/2024 Reviewed by: Mik Mendoza APRN.CORE BLOWER OPERATOR - Fully Assessed Reason for Visit: PRAF [...] Status:Closed by VAUGHN HOOD on 03/29/24 Normal [facility] Bacteria Ur Culton Bacteria identified Cx Nom (U) ORGANISM ID: 1 <10,000 CFU/ml Normal urogenital ania Normal [facility] Comment on above: Performed By: #### 6 30-4 ####[facility] LABCLIA [id number] [place] [address] [place] C. trachomatis+N. gonorrhoea e DNA ÁNGEL+probe Ql (Unsp spec)on 03-28-2024 C. trachomatis rRNA ÁNGEL+probe Ql (Unsp spec) Not detected Normal Not detected [facility] Comment on above: Order Comment: Speci men Type: SWABOrdering Facility: [facility] Address: [address] [place] [address] Performed By: #### 3 6902-5 ####[facility] LABCLIA [id number] [place] [address] [place] N. gonorrhoeae rRNA ÁNGEL+probe Ql (Unsp spec) Not detected Normal Not detected [facility] Comment on above: Order Comment: Speci men Type: SWABOrdering Facility: [facility] Address: [address] [place] [address] Performed By: #### 3 6902-5 ####[facility] LABCLIA [id number] [place] [address] [place] HIGH RISK HUMAN PAPILLOMA CANDIDA (HPV), PCR FOR DETECTION AND GENOTYPINGon 03-28-2024 HPV 16 Ag Ql (Unsp spec) Not detected Normal Not detected [facility] Comment on above: Order Comment: Speci men Type: FLUID SPECIMENOrdering Facility: [facility] Address: [address] [place] [address] Performed By: #### H PVHRT ####[facility] LABIA [id number] [place] [address] [place] HPV 18 Ag Ql (Unsp spec) Not detected Normal Not detected [facility] Comment on above: Order Comment: Speci men Type: FLUID SPECIMENOrdering Facility: [facility] Address: [address] [place] [address] Performed By: #### H PVHRT ####[facility] LABIA [id number] [place] [address] [place] HPV 31+33+35+39+45+51+52+56 +58+59+66+68 DNA ÁNGEL+probe Ql (Cvx) Not detected Normal Not detected [facility] Comment on above: Order Comment: Speci men Type: FLUID SPECIMENOrdering Facility: [facility] Address: [address] [place] [address] Result Comment: High Risk HPV Other Type includes HPV types 31, 33, 35, 39, 45, 51, 52, 56, 58, 59, 66 and 68. Performed By: #### H PVHRT ####[facility] LABCLIA [id number] [address] PAP TESTon 03-28-2024 ADEQUACY Satisfactory for interpretation. Normal [facility] Comment on above: Order Comment: Speci men Type: FLUID SPECIMENOrdering Facility: [facility] Address: [address] [place] [address] Performed By: #### L [id number] ####[facility] [id number] [address] LABCLIA [id number] [address] [place] CASE REPORT Normal [facility] Comment on above: Order Comment: Speci men Type: FLUID SPECIMENOrdering Facility: [facility] Address: [address] [place] [address] Result Comment: Gyne cologic Cytology Report Case: [id number] Authorizing Provider: Mik Mendoza APRN.CORE BLOWER OPERATOR Collected: 03/28/2024 10:27 AM Ordering Location: OB/Gynecology Received: 03/28/2024 11:33 AM First Screen: Janine Mckeon, CT, ASCP Pathologist: Evelina Marin MD Specimen: Pap Test, ThinPrep, Cervix Performed By: #### L [id number] ####[facility] [id number] [address] LABCLIA [id number] [address] [place] CLINICAL HISTORY, CYTOLOGY, CUFFING MACHINE OPERATOR (Indicate Weeks) Normal [facility] Comment on above: Order Comment: Speci men Type: FLUID SPECIMENOrdering Facility: [facility] Address: [address] [place] [address] Performed By: #### L [id number] ####[facility]IA [id number] [place] [id number] [facility] LABCLIA [id number] [address] [place] FINAL PERFORMING LAB Normal [facility] Comment on above: Order Comment: Speci men Type: FLUID SPECIMENOrdering Facility: [facility] Address: [address] [place] [address] Result Comment: Tech nical component, service consultant screening performed at [facility], [address] [facility], [place] [id number] CLIA# [id number] Diagnostic interpretation performed at [facility], [address] [facility], [place] [id number] CLIA# [id number] Bevel Gear Generator Operator: Lorelei Barrera M.D. Performed By: #### L [id number] ####[facility]CLIA [id number] [address] LABCLIA [id number] [address] STATES OF [facility] INTERPRETATION, CYTOLOGY, CUFFING MACHINE OPERATOR Abnormal [facility] Comment on above: Order Comment: Speci men Type: FLUID SPECIMENOrdering Facility: [facility] Address: [address] [place] [address] Result Comment: Atyp ical squamous cells of undetermined significance (ASC-US). Performed By: #### L [id number] ####[facility] [id number] [address] LABCLIA [id number] [place] [address] [place] LMP 02/04/2024 Normal [facility] Comment on above: Order Comment: Speci men Type: FLUID SPECIMENOrdering Facility: [facility] Address: [address] [place] [address] Performed By: #### L [id number] ####[facility] [id number] [address] LABCLIA [id number] [place] [address] [place] PAP DISCLAIMER COMMENT The Pap Smear is a screening test for cervical cancer. False negative results occur with all screening tests, emphasizing the need for rescreening at recommended intervals, and clinical correlation. Normal [facility] Comment on above: Order Comment: Speci men Type: FLUID SPECIMENOrdering Facility: [facility] Address: [address] [place] [address] Performed By: #### L [id number] ####[facility]CLIA [id number] [address] STATES [facility] LABCLIA [id number] [place] [address] [place] PAP GENERAL CATEGORIZATION Epithelial Cell Abnormality Normal [facility] Comment on above: Order Comment: Speci men Type: FLUID SPECIMENOrdering Facility: [facility] Address: [address] [place] [address] Performed By: #### L [id number] ####[facility] [id number] [address] STATES [facility] LABCLIA [id number] [place] [address] [place] PAP MANAGER DRUG SAFETY COMMENT This specimen has be en analyzed by the ThinPrep Imaging System, an automated imaging and review system, which assists the laboratory in evaluating cells on ThinPrep Pap tests. Following automated imaging, selected de oliveira from every slide are reviewed by a service consultant. Normal [facility] Comment on above: Order Comment: Speci men Type: FLUID SPECIMENOrdering Facility: [facility] Address: [address] [place] [address] Performed By: #### L [id number] ####[facility]ATORYCLIA [id number] [place] [id number] [place] OF [facility] LABCLIA [id number] [facility] [id number] OF [facility] POC COSMETOLOGIST ULTRASOUNDon 03-28-19 25 Indication Viability; confirm cardiac [...] Read By: Mik Mendoza NP MATERNAL MEDICINE [facility] Radiology Study observation (narrative) [facility] 02-28-2024 CNPN Telephone (OBGYWM) -------- KIERA ARVIZU ([id number]) 1 F Date Time Provider Department 02/28/24 DEB SIMMONS During your visit today, we recorded the following information about you: Nandini Hardin 02/28/2024 11:26 AM Signed Patient wanted to let the office know she has been trying to request her records from [facility] for over a month now, and she [...] Status:Closed by KATHERINE PHILIP on 02/28/24 Normal [facility] Zinc, Plasma or Serumon 10-2 ZINC,PLASMA/SER 73 ug/dL Normal 44-115 [facility] Comment on above: Order Comment: Test( s) 129597-[id number], Plasma or Serum was developed and its performance characteristics determined by [facility]. It has not been cleared or approved by the Food and Drug Administration. Result Comment: Dete ction Limit = 5 Performed at: [address] [id number] Property Controller: Christoph Thomas MD, Phone: [phone] Performed By: #### L 3300.9900, L100.0100, L503.6550, L3100.7950, L3100.5500, L3300.0960, L500.4050 #### [facility] [address] [place], [address] Anti-dsDNA Abon 01-16-2024 ANTI-DNA (DS)AB 1 IU/mL Normal 0-9 [facility] Comment on above: Order Comment: Speci my Comment: A duplicate report has been generated due to demographic Specimen Comment: updates. Result Comment: Nega tive <5 Equivocal 5 - 9 Positive >9 Performed By: #### L 3300.9900, L100.0100, L503.6550, L3100.7950, L3100.5500, L3300.0960, L500.4050 #### [facility] [address] [place], [place], [id number] Antinuclear Antibody, IFAon 01-16-2024 LUCIA, IFA Negative Normal . [facility] Comment on above: Order Comment: Salma pepe Comment: A duplicate report has been generated due to demographic Specimen Comment: updates. Result Comment: Nega tive <1:80 Borderline 1:80 Positive >1:80 ICAP nomenclature: AC-0 For more information about Hep-2 cell patterns use ANApatterns.org, the official website for the International Consensus on Antinuclear Antibody (LUCIA) Patterns (ICAP). Performed at: [facility]co[address] [id number] Property Controller: Wei Smith PhD, Phone: [phone] Performed at: [facility] [address] [id number] Property Controller: Christoph Thomas MD, Phone: [phone] Performed By: #### L 3300.9900, L100.0100, L503.6550, L3100.7950, L3100.5500, L3300.0960, L500.4050 #### [facility] [address] [place], [place], [id number] Vitamin D 1,25-Dihydroxyon 1 VIT D 1,25 DIHY 33.0 pg/mL Normal 24.8-81.5 [facility] Comment on above: Order Comment: Speci my Comment: A duplicate report has been generated due to demographic Specimen Comment: updates. Performed By: #### L 3300.9900, L100.0100, L503.6550, L3100.7950, L3100.5500, L3300.0960, L500.4050 #### [facility] [address] [place], [address] L3300.0940on 01-13-2024 VIT D,25 HYDROX Normal [facility] Comment on above: Result Comment: TEST RESULTS LIMITS Vitamin D, 25-Hydroxy 30.5 ng/mL 30.0-100.0 Vitamin D deficiency has been defined by the [place] of Medicine and an Endocrine Society practice guideline as a level of serum 25-OH vitamin D less than 20 ng/mL (1,2). The Endocrine Society went on to further define vitamin D insufficiency as a level between 21 and 29 ng/mL (2). 1. IOM ([place] of Medicine). 2010. Dietary reference intakes for calcium and D. [place]: The National Academies Press. 2. Laura MF, Jimi NC, Antonio BROWN, et al. Evaluation, treatment, and prevention of vitamin D deficiency: an Endocrine Society clinical practice guideline. JCEM. 2011 Sep; 96(7):1911-30. TESTING PERFORMED AT [facility]. ORIGINAL REPORT ON FILE IN LAB CONTAINS ADDITIONAL TEST SITE INFORMATION. Performed By: #### L 3300.0940 #### [facility] [address] [place], [address] CBC W/Diff, Automatedon 10- Absolute Lymph 2.92 X10 3/uL Normal 0.83-4.51 [facility] Comment on above: Performed By: #### L 3300.9900, L100.0100, L503.6550, L3100.7950, L3100.5500, L3300.0960, L500.4050 #### [facility] [address] [place], [address] Absolute Neut 3.6 X10 3/uL Normal 2.0-7.7 [facility] Comment on above: Performed By: #### L 3300.9900, L100.0100, L503.6550, L3100.7950, L3100.5500, L3300.0960, L500.4050 #### [facility] [address] [place], [address] Basophils/100 WBC (Bld) 0.8 % Normal 0-1 [facility] Comment on above: Performed By: #### L 3300.9900, L100.0100, L503.6550, L3100.7950, L3100.5500, L3300.0960, L500.4050 #### [facility] [address] [place], [address] Eosinophils/100 WBC (Bld) 5.2 % High 0-5 [facility] Comment on above: Performed By: #### L 3300.9900, L100.0100, L503.6550, L3100.7950, L3100.5500, L3300.0960, L500.4050 #### [facility] [address] [place], [address] Erythrocyte distribution width (RBC) [Ratio] 12.6 % Normal 11.6-14.6 [facility] Comment on above: Performed By: #### L 3300.9900, L100.0100, L503.6550, L3100.7950, L3100.5500, L3300.0960, L500.4050 #### [facility] [address] [place], [address] Hematocrit (Bld) [Volume fraction] 40.2 % Normal 37-47 [facility] Comment on above: Performed By: #### L 3300.9900, L100.0100, L503.6550, L3100.7950, L3100.5500, L3300.0960, L500.4050 #### [facility] [address] [place], [address] Hemoglobin (Bld) [Mass/Vol] 13.1 g/dL Normal 12.0-15.0 [facility] Comment on above: Performed By: #### L 3300.9900, L100.0100, L503.6550, L3100.7950, L3100.5500, L3300.0960, L500.4050 #### [facility] [address] [place], [address] IG% 0.100 Normal 0.0-0.9 [facility] Comment on above: Result Comment: IG% - Immature Granulocytes (promyelocytes, myelocytes and metamyelocytes) > 1% indicates that a LEFT SHIFT is Present. Performed By: #### L 3300.9900, L100.0100, L503.6550, L3100.7950, L3100.5500, L3300.0960, L500.4050 #### [facility] [address] [place], [address] Lymphocytes/100 WBC (Bld) 39.1 % Normal 19-41 [facility] Comment on above: Performed By: #### L 3300.9900, L100.0100, L503.6550, L3100.7950, L3100.5500, L3300.0960, L500.4050 #### [facility] [address] [place], [address] MCH (RBC) [Entitic mass] 29.8 pg Normal 27.0-32.0 [facility] Comment on above: Performed By: #### L 3300.9900, L100.0100, L503.6550, L3100.7950, L3100.5500, L3300.0960, L500.4050 #### [facility] [address] [place], [address] MCHC (RBC) [Mass/Vol] 32.6 g/dL Normal 32-36 [facility] Comment on above: Performed By: #### L 3300.9900, L100.0100, L503.6550, L3100.7950, L3100.5500, L3300.0960, L500.4050 #### [facility] [address] [place], [address] MCV (RBC) [Entitic vol] 91.4 fL Normal 81-[address] [facility] Comment on above: Performed By: #### L 3300.9900, L100.0100, L503.6550, L3100.7950, L3100.5500, L3300.0960, L500.4050 #### [facility] [address] [place], [address] Monocytes/100 WBC (Bld) 6.0 % Normal 0-[address] [facility] Comment on above: Performed By: #### L 3300.9900, L100.0100, L503.6550, L3100.7950, L3100.5500, L3300.0960, L500.4050 #### [facility] [address] [place], [address] Neutrophils/100 WBC (Bld) 48.8 % Normal 47-70 [facility] Comment on above: Performed By: #### L 3300.9900, L100.0100, L503.6550, L3100.7950, L3100.5500, L3300.0960, L500.4050 #### [facility] [address] [place], [address] Nucleated RBC (Bld) [#/Vol] 0 10*3/uL Normal 0-5 [facility] Comment on above: Performed By: #### L 3300.9900, L100.0100, L503.6550, L3100.7950, L3100.5500, L3300.0960, L500.4050 #### [facility] [address] [place], [address] Platelet mean volume (Bld) [Entitic vol] 11.1 fL Normal 6.2-12.0 [facility] Comment on above: Performed By: #### L 3300.9900, L100.0100, L503.6550, L3100.7950, L3100.5500, L3300.0960, L500.4050 #### [facility] [address] [place], [address] Platelets (Bld) [#/Vol] 318 10*3/uL Normal 150-450 [facility] Comment on above: Performed By: #### L 3300.9900, L100.0100, L503.6550, L3100.7950, L3100.5500, L3300.0960, L500.4050 #### [facility] [address] [place], [address] RBC (Bld) [#/Vol] 4.40 10*6/uL Normal 4.2-5.4 [facility] Comment on above: Performed By: #### L 3300.9900, L100.0100, L503.6550, L3100.7950, L3100.5500, L3300.0960, L500.4050 #### [facility] [address] [place], [address] RDW SD 41.7 fl Normal 35.1-43.9 [facility] Comment on above: Performed By: #### L 3300.9900, L100.0100, L503.6550, L3100.7950, L3100.5500, L3300.0960, L500.4050 #### [facility] [address] [place], [address] WBC (Bld) [#/Vol] 7.5 10*3/uL Normal 4.4-11.0 [facility] Comment on above: Performed By: #### L 3300.9900, L100.0100, L503.6550, L3100.7950, L3100.5500, L3300.0960, L500.4050 #### [facility] [address] [place], [address] Comprehensive Metabolic Prof ilon 01-10-2024 Albumin [Mass/Vol] 4.4 g/dL Normal 3.2-5.0 [facility] Comment on above: Performed By: #### L 3300.9900, L100.0100, L503.6550, L3100.7950, L3100.5500, L3300.0960, L500.4050 #### [facility] [address] [place], [address] Albumin/Globulin [Mass ratio] 1.3 {ratio} Normal 0.9-2.4 [facility] Comment on above: Performed By: #### L 3300.9900, L100.0100, L503.6550, L3100.7950, L3100.5500, L3300.0960, L500.4050 #### [facility] [address] [place], [address] ALK P 49 U/L Normal 45-117 [facility] Comment on above: Performed By: #### L 3300.9900, L100.0100, L503.6550, L3100.7950, L3100.5500, L3300.0960, L500.4050 #### [facility] [address] [place], [address] ALT [Catalytic activity/Vol] 14 U/L Normal 13-56 [facility] Comment on above: Performed By: #### L 3300.9900, L100.0100, L503.6550, L3100.7950, L3100.5500, L3300.0960, L500.4050 #### [facility] [address] [place], [address] AST [Catalytic activity/Vol] 13 U/L Low 15-37 [facility] Comment on above: Performed By: #### L 3300.9900, L100.0100, L503.6550, L3100.7950, L3100.5500, L3300.0960, L500.4050 #### [facility] [address] [place], [address] Bilirubin [Mass/Vol] 0.40 mg/dL Normal 0.20-1.00 [facility] Comment on above: Result Comment: For patients on eltrombopag therapy, use of Dimension [place] TBIL is not recommended. Performed By: #### L 3300.9900, L100.0100, L503.6550, L3100.7950, L3100.5500, L3300.0960, L500.4050 #### [facility] [address] [place], [address] BUN/CRE 11.4 RATIO Normal 10-20 [facility] Comment on above: Performed By: #### L 3300.9900, L100.0100, L503.6550, L3100.7950, L3100.5500, L3300.0960, L500.4050 #### [facility] [address] [place], [address] CA,Total 9.4 mg/dL Normal 8.5-10.1 [facility] Comment on above: Performed By: #### L 3300.9900, L100.0100, L503.6550, L3100.7950, L3100.5500, L3300.0960, L500.4050 #### [facility] [address] [place], [address] Chloride [Moles/Vol] 106 mmol/L Normal 98-107 [facility] Comment on above: Performed By: #### L 3300.9900, L100.0100, L503.6550, L3100.7950, L3100.5500, L3300.0960, L500.4050 #### [facility] [address] [place], [address] CO2 [Moles/Vol] 25.0 mmol/L Normal 21.0-32.0 [facility] Comment on above: Performed By: #### L 3300.9900, L100.0100, L503.6550, L3100.7950, L3100.5500, L3300.0960, L500.4050 #### [facility] [address] [place], [place], [id number] (447) Creatinine [Mass/Vol] 0.88 mg/dL Normal 0.55-1.02 [facility] Comment on above: Result Comment: The validity of the calculated GFR GFRAA in patients over 70 years has not been determined. Clinical correlation is essential. Performed By: #### L 3300.9900, L100.0100, L503.6550, L3100.7950, L3100.5500, L3300.0960, L500.4050 #### [facility] [address] [place], [address] EST GFR - AA 102 mL/min Normal >60 [facility] Comment on above: Result Comment: Afri can Peruvian GFR Calc Performed By: #### L 3300.9900, L100.0100, L503.6550, L3100.7950, L3100.5500, L3300.0960, L500.4050 #### [facility] [address] [place], [address] GAP 7 Normal 5-15 [facility] Comment on above: Performed By: #### L 3300.9900, L100.0100, L503.6550, L3100.7950, L3100.5500, L3300.0960, L500.4050 #### [facility] [address] [place], [address] GFR/1.73 sq M.predicted among non-blacks MDRD (S/P/Bld) [Vol rate/Area] 85 mL/min/{1.73_m2} Normal >60 [facility] Comment on above: Result Comment: Non- GFR Calc Performed By: #### L 3300.9900, L100.0100, L503.6550, L3100.7950, L3100.5500, L3300.0960, L500.4050 #### [facility] [address] [place], [address] Globulin (S) [Mass/Vol] 3.4 g/dL Normal 2.2-4.[address] [facility] Comment on above: Performed By: #### L 3300.9900, L100.0100, L503.6550, L3100.7950, L3100.5500, L3300.0960, L500.4050 #### [facility] [address] [place], [address] Glucose [Mass/Vol] 80 mg/dL Normal 74-106 [facility] Comment on above: Performed By: #### L 3300.9900, L100.0100, L503.6550, L3100.7950, L3100.5500, L3300.0960, L500.4050 #### [facility] [address] [place], [address] Potassium [Moles/Vol] 3.7 mmol/L Normal 3.5-5.1 [facility] Comment on above: Performed By: #### L 3300.9900, L100.0100, L503.6550, L3100.7950, L3100.5500, L3300.0960, L500.4050 #### [facility] [address] [place], [place], [address] Sodium [Moles/Vol] 138 mmol/L Normal 136-145 [facility] Comment on above: Performed By: #### L 3300.9900, L100.0100, L503.6550, L3100.7950, L3100.5500, L3300.0960, L500.4050 #### [facility] [address] [place], [place], [id number] T PROT 7.8 g/dL Normal 6.4-8.2 [facility] Comment on above: Performed By: #### L 3300.9900, L100.0100, L503.6550, L3100.7950, L3100.5500, L3300.0960, L500.4050 #### [facility] [address] [place], [place], [id number] Urea nitrogen [Mass/Vol] 10 mg/dL Normal 7-18 [facility] Comment on above: Performed By: #### L 3300.9900, L100.0100, L503.6550, L3100.7950, L3100.5500, L3300.0960, L500.4050 #### [facility] [address] [place], [place], [id number] Ferritinon 01-10-2024 Ferritin [Mass/Vol] 13 ng/mL Normal 8-252 [facility] Comment on above: Performed By: #### L 3300.9900, L100.0100, L503.6550, L3100.7950, L3100.5500, L3300.0960, L500.4050 #### [facility] [address] [place], [place], [id number] CNPSravani 12-19-2023 DELISAN Telephone (OBGYWM) -------- KIERA ARVIZU ([id number]) 1 F Date Time Provider Department 12/19/23 [...] Status:Closed by LEAH SCHREIBER on 12/26/23 Normal [facility] Dilute Blayne's viper venom timeOrdered By: Dr. Huston on 08-24-2022 dRVVT Coag (PPP) [Time] 40.6 s 0.0-47.0 [facility] No Panel InformationOrdered By: Dr. Huston on 08-24-2022 Anti-Cardiolipin IgM Antibody 13 MPL U/mL 0-12 [facility] Comment on above: Negative: <13 Indete rminate: 13 - 20 Low-Med Positive: >20 - 80 High Positive: >80Performed at: [address] [id number] Director: Christoph Thomas MD, Phone: [phone] at: [id number] [place], [place] [id number] Director: Wei Smith PhD, Phone: [phone] Serum paxf-1-ojfwbkpxvgmxc m easurement (mass/volume)Ordered By: Dr. Huston on 08-24-2022 Vhkt-7-Ilhsynygknzzo [Mass/Vol] 1.6 ug/mL 0.6-2.4 [facility] Comment on above: Siemens S2C [employer] Systemsulite 200 0 Immunochemiluminometric assay (ICMA)Values obtained with different assay methods or kits cannotbe used interchangeably. Results cannot be interpreted asabsolute evidence of the presence or absence of malignantdisease.Performed at: [address] [id number] Director: Christoph Thomas MD, Phone: [phone] Serum cardiolipin IgG antibo dy assay by immunoassay (units/volume)Ordered By: Dr. Huston on 08-24-2022 Cardiolipin IgG IA Qn (S) < 9 GPL U/mL 0-14 [facility] Comment on above: Negative: <15 Indete rminate: 15 - 20 Low-Med Positive: >20 - 80 High Positive: >80 Thin prep Papanicolaou smear with manual screeningOrdered By: Dr. Huston on 08-24-2022 Thin prep Papanicolaou smear with manual screening 40.1 sec 0.0-47.6 [facility] Thin prep Papanicolaou smear with manual screening 1.04 Ratio 0.00-1.34 [facility] Thin prep Papanicolaou smear with manual screening 36.4 sec 0.0-43.5 [facility] Thin prep Papanicolaou smear with manual screening Comment: . [facility] Comment on above: No lupus anticoagula nt was detected. Thrombin time in platelet po or plasmaOrdered By: Dr. Huston on 08-24-2022 Thrombin time Coag (PPP) [Time] 16.5 sec 0.0-23.0 [facility] Culture, urineOrdered By: Dr Javier Huston on 05-25-2022 Bacteria identified Cx Nom (U) Positive [facility] Basophil percentageOrdered B y: Dr. Huston on 05-24-2022 Bilirubin [Mass/Vol] 0.50 mg/dL 0.20-1.00 [facility] Comment on above: For patients on eltr ombopag therapy, use of Dimension [place] TBIL is not recommended. Chloride [Moles/Vol] 108 mmol/L 98-107 [facility] Glucose [Mass/Vol] 86 mg/dL 74-106 [facility] Potassium [Moles/Vol] 3.7 mmol/L 3.5-5.1 [facility] Protein [Mass/Vol] 7.2 g/dL 6.4-8.2 [facility] Sodium [Moles/Vol] 141 mmol/L 136-145 [facility] WBC (Bld) [#/Vol] 7.8 10*3/uL 4.4-11.0 [facility] Blood erythrocytes count (nu mber/volume)Ordered By: Dr. Huston on 05-24-2022 RBC (Bld) [#/Vol] 4.04 10*6/uL 4.2-5.4 [facility] Blood hemoglobin measurement (mass/volume)Ordered By: Dr. Huston on 05-24-2022 Hemoglobin (Bld) [Mass/Vol] 11.9 g/dL 12.0-15.0 [facility] Blood platelet mean volumeOr dered By: Dr. Huston on 05-24-2022 Platelet mean volume (Bld) [Entitic vol] 9.8 fL 6.2-12.0 [facility] Determination of erythrocyte mean corpuscular volume (MCV)Ordered By: Dr. Huston on 05-24-2022 MCV (RBC) [Entitic vol] 92.1 fL 81-99 [facility] Dilute Blayne's viper venom timeOrdered By: Dr. Huston on 05-24-2022 dRVVT Coag (PPP) [Time] 37.1 s 0.0-47.0 [facility] Hematocrit Auto (Bld) [Volum e fraction]Ordered By: Dr. Huston on 05-24-2022 Hematocrit (Bld) [Volume fraction] 37.2 % 37-47 [facility] - Chemistry and C hemistry - challengeOrdered By: Dr. Huston on 05-24-2022 ALP [Catalytic activity/Vol] 70 U/L 45-117 [facility] ALT [Catalytic activity/Vol] 50 U/L 13-56 [facility] CO2 [Moles/Vol] 24.0 mmol/L 21.0-32.0 [facility] Globulin (S) [Mass/Vol] 3.4 g/dL 2.2-4.2 [facility] Urea nitrogen/Creatinine [Mass ratio] 16.8 mg/mg 10-20 [facility] - Hematology and Cell countsOrdered By: Dr. Huston on 05-24-2022 Erythrocyte distribution width (RBC) [Entitic vol] 42.0 fL 35.1-43.9 [facility] Erythrocyte distribution width (RBC) [Ratio] 12.2 % 11.6-14.6 [facility] MCH (RBC) [Entitic mass] 29.5 pg 27.0-32.0 [facility] MCHC Auto (RBC) [Mass/Vol]Or dered By: Dr. Huston on 05-24-2022 MCHC (RBC) [Mass/Vol] 32.0 g/dL 32-36 [facility] No Panel InformationOrdered By: Dr. Huston on 05-24-2022 Anti-Cardiolipin IgM Antibody 21 MPL U/mL 0-12 [facility] Comment on above: Negative: <13 Indete rminate: 13 - 20 Low-Med Positive: >20 - 80 High Positive: >80Performed at: [employer] [id number] Director: Christoph Thomas MD, Phone: [phone] at: [employer] [address] [id number] Director: Wei Smith PhD, Phone: [phone] Estimated GFR (MDRD) Amer 101 mL/min >60 [facility] Comment on above: GFR Calc Estimated GFR (MDRD) Non-Af Amer 84 mL/min >60 [facility] Comment on above: Non- GFR Calc Platelets bldOrdered By: Dr. Huston on 05-24-2022 Platelets (Bld) [#/Vol] 310 10*3/uL 150-450 [facility] Serum arkj-0-ghyvfofqocife m easurement (mass/volume)Ordered By: Dr. Huston on 05-24-2022 Lvta-2-Lvfxaweukjygq [Mass/Vol] 1.4 ug/mL 0.6-2.4 [facility] Comment on above: Siemens S2C [employer] Systemsulite 200 0 Immunochemiluminometric assay (ICMA)Values obtained with different assay methods or kits cannotbe used interchangeably. Results cannot be interpreted asabsolute evidence of the presence or absence of malignantdisease.Performed at: [employer] [id number] Director: Christoph Thomas MD, Phone: [phone] Serum cardiolipin IgG antibo dy assay by immunoassay (units/volume)Ordered By: Dr. Huston on 05-24-2022 Cardiolipin IgG IA Qn (S) < 9 GPL U/mL 0-14 [facility] Comment on above: Negative: <15 Indete rminate: 15 - 20 Low-Med Positive: >20 - 80 High Positive: >80 Serum or plasma albumin kemi urement (mass/volume)Ordered By: Dr. Huston on 05-24-2022 Albumin [Mass/Vol] 3.8 g/dL 3.2-5.0 [facility] Serum or plasma albumin/glob ulin mass ratioOrdered By: Dr. Huston on 05-24-2022 Albumin/Globulin [Mass ratio] 1.1 {ratio} 0.9-2.4 [facility] Serum or plasma calcium kemi urement (mass/volume)Ordered By: Dr. Huston on 05-24-2022 Calcium [Mass/Vol] 9.3 mg/dL 8.5-10.1 [facility] Serum or plasma creatinine m easurement (mass/volume)Ordered By: Dr. Huston on 05-24-2022 Creatinine [Mass/Vol] 0.90 mg/dL 0.55-1.02 [facility] Comment on above: The validity of the calculated GFR & GFRAA in patients over 70 years has not been determined. Clinical correlation is essential. Serum or plasma urea nitroge n measurement (mass/volume)Ordered By: Dr. Huston on 05-24-2022 Urea nitrogen [Mass/Vol] 15 mg/dL 7-18 [facility] Thin prep Papanicolaou smear with manual screeningOrdered By: Dr. Huston on 05-24-2022 Thin prep Papanicolaou smear with manual screening 35 U/L 15-37 [facility] Thin prep Papanicolaou smear with manual screening 9 5-15 [facility] Thin prep Papanicolaou smear with manual screening 38.8 sec 0.0-47.6 [facility] Thin prep Papanicolaou smear with manual screening 0.91 Ratio 0.00-1.34 [facility] Thin prep Papanicolaou smear with manual screening 37.9 sec 0.0-43.5 [facility] Comment on above: Please note refere nce interval change Thin prep Papanicolaou smear with manual screening Comment: . [facility] Comment on above: No lupus anticoagula nt was detected. Thrombin time in platelet po or plasmaOrdered By: Dr. Huston on 05-24-2022 Thrombin time Coag (PPP) [Time] 18.6 sec 0.0-23.0 [facility] Urine creatinine measurement (mass/volume)Ordered By: Dr. Huston on 05-24-2022 Creatinine (U) [Mass/Vol] 243.00 mg/dL NO RANGE EST. [facility] Urine protein measurement (m ass/volume)Ordered By: Dr. Huston on 05-24-2022 Protein (U) [Mass/Vol] 22.0 mg/dL 0.0-11.8 [facility] Urine protein/creatinine mas s ratioOrdered By: Dr. Huston on 05-24-2022 Protein/Creatinine (U) [Mass ratio] 91 mg/g CRE 0-200 [facility] Progress Noteon 04-15-2022 Progress Note Note-Sharyn quinonez [...] with more than 50% of the total dhim-dy-shjo time of the visit in counseling/coordination of care. , 10:20 AM [facility] 42on 04-14-2022 42 Follow up visit with [...] when she is ready for that. Normal [facility] CAREPLNon 04-14-2022 CAREPLN The patient is Moderately [...] facility with appropriate resources Outcome: Progressing Normal [facility] Comprehensive metabolic 1998 panelon 04-14-2022 Albumin [Mass/Vol] 2.7 g/dL Low 3.5 - 5.0 g/dL [facility] ALP [Catalytic activity/Vol] 210 U/L High 38 - 126 U/L [facility] ALT [Catalytic activity/Vol] 20 U/L 0 - 34 U/L [facility] Anion gap [Moles/Vol] 2 mmol/L Low 3 - 13 mmol/L [facility] AST [Catalytic activity/Vol] 46 U/L 15 - 46 U/L [facility] Bilirubin [Mass/Vol] 0.1 mg/dL Low 0.2 - 1 .3 mg/dL [facility] Calcium [Mass/Vol] 7.5 mg/dL Low 8.4 - 10. 4 mg/dL [facility] Chloride [Moles/Vol] 105 mmol/L 98 - 10 7 mmol/L [facility] CO2 [Moles/Vol] 25 mmol/L 22 - 30 mmol/L [facility] Creatinine [Mass/Vol] 0.94 mg/dL 0.52 - 1.04 mg/dL [facility] GFR/1.73 sq M.predicted MDRD (S/P/Bld) [Vol rate/Area] 88.7 mL/min/{1.73_m2} - PINF [facility] Comment on above: Calculation based on the Chronic Kidney Disease Epidemiology Collaboration (CKD-EPI) equation refit without adjustment for race Glucose [Mass/Vol] 77 mg/dL 70 - 100 mg/dL [facility] Interpretation and review of laboratory results Abnormal [facility] Potassium [Moles/Vol] 4.4 mmol/L 3.5 - 5.1 mmol/L [facility] Protein [Mass/Vol] 5.5 g/dL Low 6.3 - 8.2 g/dL [facility] Sodium [Moles/Vol] 133 mmol/L Low 135 - 145 mmol/L [facility] Urea nitrogen [Mass/Vol] 27 mg/dL High 7 - 17 mg/dL [facility] No Panel Informationon 04-14 LUCIA Pattern [facility] LUCIA Titer [facility] TESTED BY INDIRECT IMMUNOFLUORESCENCE ASSAY (IFA) [facility] No Panel InformationOrdered By: Faustino Jamison on 04-14-2022 Anti-DNA Antibody [facility] Interpretation and review of laboratory results Normal [facility] Progress Noteon 04-14-2022 Progress Note Nutrition rescreen completed. Patient assigned a level 1. YORDY Viveros Normal [facility] Progress Note Note-Sharyn quinonez POST OPERATIVE [...] time was spent counseling and coordinating care. [facility] 42on 04-13-2022 42 Breast pump use indicated for this pt. Due to: in [facility] and [facility] weeks Hospital breast pump, supplies [...] rental pump for home- will speak to [facility] about rental home pump [facility] CARECOORDon 04-13-2022 CARECOORD 21 year old admitted [...] Denies any concerns at this time. Normal [facility] CAREPLNon 04-13-2022 CAREPLN The patient is Moderately [...] facility with appropriate resources Outcome: Progressing Normal [facility] CBC panel Auto (Bld)Ordered By: Lizzie Corbin on 04-13-2022 Erythrocyte distribution width (RBC) [Ratio] 13.3 % 11.5 - 14.5 % [facility] Hematocrit (Bld) [Volume fraction] 38.2 % 35.0 - 47.0 % [facility] Hemoglobin (Bld) [Mass/Vol] 12.9 g/dL 11.7 - 16.0 g/dL [facility] Interpretation and review of laboratory results Abnormal [facility] MCH (RBC) [Entitic mass] 30.4 pg 26.0 - 34.0 pg [facility] MCHC (RBC) [Mass/Vol] 33.6 % 32.0 - 36.0 % [facility] MCV (RBC) [Entitic vol] 90.2 fL 80.0 - 98.0 fL [facility] Platelet mean volume (Bld) [Entitic vol] 10.0 fL 7.4 - 12.4 fL [facility] Platelets (Bld) [#/Vol] 207 10*3/uL 140 - 440 10*3/uL [facility] RBC (Bld) [#/Vol] 4.23 10*6/uL 3.8 - 5.20 10*6/uL [facility] WBC (Bld) [#/Vol] 19.2 10*3/uL High 3.6 - 10.7 10*3/uL [facility] Comprehensive metabolic 1998 panelon 04-13-2022 Albumin [Mass/Vol] 3.5 g/dL 3.5 - 5.0 g/dL [facility] ALP [Catalytic activity/Vol] 273 U/L High 38 - 126 U/L [facility] ALT [Catalytic activity/Vol] 23 U/L 0 - 34 U/L [facility] Anion gap [Moles/Vol] 2 mmol/L Low 3 - 13 mmol/L [facility] AST [Catalytic activity/Vol] 55 U/L High 15 - 46 U/L [facility] Bilirubin [Mass/Vol] 0.3 mg/dL 0.2 - 1 .3 mg/dL [facility] Calcium [Mass/Vol] 8.4 mg/dL 8.4 - 10. 4 mg/dL [facility] Chloride [Moles/Vol] 107 mmol/L 98 - 10 7 mmol/L [facility] CO2 [Moles/Vol] 24 mmol/L 22 - 30 mmol/L [facility] Creatinine [Mass/Vol] 1.08 mg/dL High 0.52 - 1.04 mg/dL [facility] GFR/1.73 sq M.predicted MDRD (S/P/Bld) [Vol rate/Area] 75.1 mL/min/{1.73_m2} - PINF [facility] Comment on above: Calculation based on the Chronic Kidney Disease Epidemiology Collaboration (CKD-EPI) equation refit without adjustment for race Glucose [Mass/Vol] 118 mg/dL High 70 - 100 mg/dL [facility] Interpretation and review of laboratory results Abnormal [facility] Potassium [Moles/Vol] 4.7 mmol/L 3.5 - 5.1 mmol/L [facility] Protein [Mass/Vol] 6.6 g/dL 6.3 - 8.2 g/dL [facility] Sodium [Moles/Vol] 132 mmol/L Low 135 - 145 mmol/L [facility] Urea nitrogen [Mass/Vol] 31 mg/dL High 7 - 17 mg/dL [facility] Albumin [Mass/Vol] 3.4 g/dL Low 3.5 - 5.0 g/dL [facility] ALP [Catalytic activity/Vol] 286 U/L High 38 - 126 U/L [facility] ALT [Catalytic activity/Vol] 20 U/L 0 - 34 U/L [facility] Anion gap [Moles/Vol] 8 mmol/L 3 - 13 mmol/L [facility] AST [Catalytic activity/Vol] 50 U/L High 15 - 46 U/L [facility] Bilirubin [Mass/Vol] 0.3 mg/dL 0.2 - 1 .3 mg/dL [facility] Calcium [Mass/Vol] 8.4 mg/dL 8.4 - 10. 4 mg/dL [facility] Chloride [Moles/Vol] 104 mmol/L 98 - 10 7 mmol/L [facility] CO2 [Moles/Vol] 19 mmol/L Low 22 - 30 mmol/L [facility] Creatinine [Mass/Vol] 1.01 mg/dL 0.52 - 1.04 mg/dL [facility] GFR/1.73 sq M.predicted MDRD (S/P/Bld) [Vol rate/Area] 81.4 mL/min/{1.73_m2} - PINF [facility] Comment on above: Calculation based on the Chronic Kidney Disease Epidemiology Collaboration (CKD-EPI) equation refit without adjustment for race Glucose [Mass/Vol] 129 mg/dL High 70 - 100 mg/dL [facility] Potassium [Moles/Vol] 4.8 mmol/L 3.5 - 5.1 mmol/L [facility] Protein [Mass/Vol] 6.7 g/dL 6.3 - 8.2 g/dL [facility] Sodium [Moles/Vol] 132 mmol/L Low 135 - 145 mmol/L [facility] Urea nitrogen [Mass/Vol] 29 mg/dL High 7 - 17 mg/dL [facility] Albumin [Mass/Vol] 3.1 g/dL Low 3.5 - 5.0 g/dL [facility] ALP [Catalytic activity/Vol] 269 U/L High 38 - 126 U/L [facility] ALT [Catalytic activity/Vol] 19 U/L 0 - 34 U/L [facility] Anion gap [Moles/Vol] 6 mmol/L 3 - 13 mmol/L [facility] AST [Catalytic activity/Vol] 43 U/L 15 - 46 U/L [facility] Bilirubin [Mass/Vol] 0.2 mg/dL 0.2 - 1 .3 mg/dL [facility] Calcium [Mass/Vol] 8.3 mg/dL Low 8.4 - 10. 4 mg/dL [facility] Chloride [Moles/Vol] 109 mmol/L High 98 - 10 7 mmol/L [facility] CO2 [Moles/Vol] 19 mmol/L Low 22 - 30 mmol/L [facility] Creatinine [Mass/Vol] 1.09 mg/dL High 0.52 - 1.04 mg/dL [facility] GFR/1.73 sq M.predicted MDRD (S/P/Bld) [Vol rate/Area] 74.3 mL/min/{1.73_m2} - PINF [facility] Comment on above: Calculation based on the Chronic Kidney Disease Epidemiology Collaboration (CKD-EPI) equation refit without adjustment for race Glucose [Mass/Vol] 155 mg/dL High 70 - 100 mg/dL [facility] Potassium [Moles/Vol] 4.6 mmol/L 3.5 - 5.1 mmol/L [facility] Protein [Mass/Vol] 6.1 g/dL Low 6.3 - 8.2 g/dL [facility] Sodium [Moles/Vol] 134 mmol/L Low 135 - 145 mmol/L [facility] Urea nitrogen [Mass/Vol] 29 mg/dL High 7 - 17 mg/dL [facility] - Chemistry and C hemistry - challengeOrdered By: Alphonse Mota on 04-13-2022 Magnesium [Mass/Vol] 5.4 mg/dL Critically high 1.6 - 2.3 mg/dL [facility] - Chemistry and C hemistry - challengeon 04-13-2022 Magnesium [Mass/Vol] 4.6 mg/dL High 1.6 - 2 .3 mg/dL [facility] Magnesium [Mass/Vol] 4.8 mg/dL High 1.6 - 2 .3 mg/dL [facility] - Hematology and Cell countson 04-13-2022 Complement C3 [Mass/Vol] 107 mg/dL 88 - 165 mg/dL [facility] [employer] Complement C4 [Mass/Vol] 14 mg/dL 14 - 44 mg/dL [facility] - Urinalysison Protein (U) [Mass/Vol] 352 mg/dL High 0 - 12 mg/dL [facility] Magnesium [Mass/Vol]Ordered By: Alphonse Mota on 04-13-2022 Interpretation and review of laboratory results Abnormal [facility] [employer] No Panel Informationon 04-13 Interpretation and review of laboratory results Abnormal [facility] [employer] Interpretation and review of laboratory results Normal [facility] [employer] Interpretation and review of laboratory results Abnormal [facility] [employer] Interpretation and review of laboratory results Abnormal [facility] [employer] Progress Noteon 04-13-2022 Progress Note ---- -------- Attestation signed by Estrella Boyd MD at 04/13/2022 12:51 PM Hospital Care (Independent): I independently saw and evaluated the patient. I agree with the findings and plan of care as documented in the resident's note. POD#1 from [facility]. Doing well meeting milestones. PreEwSF: BP normal to low mild range on Procardia 30mg XL daily. Cr improving to 1.01 from 1.15 on admission. UOP just adequate. Ok for eddy removal. Slight AST elevated to 50. Continue lab trend. Mag on until 184 tonight. Will start lovenox in the AM due to TOMASA - improving. [employer] PreEwSF symptoms. Plan DC home POD#3 or [...] stable to start PreEwSF - Transferred from [place] for persistent severe range BP's, BROWN, and N/V x3 days - Started on magnesium sulfate for seizure ppx and neuroprotection and MFM recommended delivery - Trending CBC, CMP, and Magnesium every 6 hours - Magnesium sulfate currently at decreased rate of 0.5g/hr due to TOMASA and has remained within a therap (more content not included)... Normal [facility] ABO and Rh group Confirm Nom (Bld)on 04-12-2022 ABO group Nom (Bld) A [facility] D Ag Ql (RBC) Positive [facility] Absolute lymphocyte countOrd ered By: Dr. Huston on 04-12-2022 Lymphocytes Auto (Unsp spec) [#/Vol] 2.81 10*3/uL 0.83-4.51 [facility] Basophil percentageOrdered B y: Dr. Huston on 04-12-2022 Basophils/100 WBC (Bld) 0.8 % 0-1 [facility] Bilirubin [Mass/Vol] 0.30 mg/dL 0.20-1.00 [facility] Comment on above: For patients on eltr ombopag therapy, use of Dimension [place] TBIL is not recommended. Chloride [Moles/Vol] 111 mmol/L 98-107 [facility] Eosinophils/100 WBC (Bld) 3.1 % 0-5 [facility] Glucose [Mass/Vol] 71 mg/dL 74-106 [facility] LDH [Catalytic activity/Vol] 292 U/L 84-246 [facility] Neutrophils (Bld) [#/Vol] 9.7 10*3/uL 2.0-7.7 [facility] Neutrophils/100 WBC (Bld) 70.2 % 47-70 [facility] Potassium [Moles/Vol] 4.7 mmol/L 3.5-5.1 [facility] Protein [Mass/Vol] 6.7 g/dL 6.4-8.2 [facility] Sodium [Moles/Vol] 141 mmol/L 136-145 [facility] WBC (Bld) [#/Vol] 13.7 10*3/uL 4.4-11.0 [facility] Bilirubin Test strip Ql (U)O rdered By: Dr. Huston on 04-12-2022 Bilirubin Ql (U) Negative Negative [facility] Blood erythrocytes count (nu mber/volume)Ordered By: Dr. Huston on 04-12-2022 RBC (Bld) [#/Vol] 4.70 10*6/uL 4.2-5.4 [facility] Blood hemoglobin measurement (mass/volume)Ordered By: Dr. Huston on 04-12-2022 Hemoglobin (Bld) [Mass/Vol] 14.3 g/dL 12.0-15.0 [facility] Blood lymphocytes/100 leukoc ytesOrdered By: Dr. Huston on 04-12-2022 Lymphocytes/100 WBC (Bld) 20.5 % 19-41 [facility] Blood monocytes/100 leukocyt esOrdered By: Dr. Huston on 04-12-2022 Monocytes/100 WBC (Bld) 4.3 % 0-10 [facility] Blood platelet mean volumeOr dered By: Dr. Huston on 04-12-2022 Platelet mean volume (Bld) [Entitic vol] 12.0 fL 6.2-12.0 [facility] Blood type and Crossmatch pa poncho (Bld)on 04-12-2022 ABO group Nom (Bld) A [facility] Blood group antibody screen GEL Ql Negative [facility] D Ag Ql (RBC) Positive [facility] CBC panel Auto (Bld)Ordered By: Makr Hampton on 04-12-2022 Erythrocyte distribution width (RBC) [Ratio] 13.1 % 11.5 - 14.5 % [facility] Hematocrit (Bld) [Volume fraction] 40.8 % 35.0 - 47.0 % [facility] Hemoglobin (Bld) [Mass/Vol] 13.7 g/dL 11.7 - 16.0 g/dL [facility] Interpretation and review of laboratory results Abnormal [facility] MCH (RBC) [Entitic mass] 30.1 pg 26.0 - 34.0 pg [facility] MCHC (RBC) [Mass/Vol] 33.5 % 32.0 - 36.0 % [facility] MCV (RBC) [Entitic vol] 90.0 fL 80.0 - 98.0 fL [facility] Platelet mean volume (Bld) [Entitic vol] 10.1 fL 7.4 - 12.4 fL [facility] Platelets (Bld) [#/Vol] 237 10*3/uL 140 - 440 10*3/uL [facility] RBC (Bld) [#/Vol] 4.54 10*6/uL 3.8 - 5.20 10*6/uL [facility] WBC (Bld) [#/Vol] 17.3 10*3/uL High 3.6 - 10.7 10*3/uL [facility] Comprehensive metabolic 1998 panelon 04-12-2022 Albumin [Mass/Vol] 3.1 g/dL Low 3.5 - 5.0 g/dL [facility] ALP [Catalytic activity/Vol] 313 U/L High 38 - 126 U/L [facility] ALT [Catalytic activity/Vol] 17 U/L 0 - 34 U/L [facility] Anion gap [Moles/Vol] 11 mmol/L 3 - 13 mmol/L [facility] AST [Catalytic activity/Vol] 36 U/L 15 - 46 U/L [facility] Bilirubin [Mass/Vol] 0.3 mg/dL 0.2 - 1 .3 mg/dL [facility] Calcium [Mass/Vol] 8.8 mg/dL 8.4 - 10. 4 mg/dL [facility] Chloride [Moles/Vol] 108 mmol/L High 98 - 10 7 mmol/L [facility] CO2 [Moles/Vol] 14 mmol/L Low 22 - 30 mmol/L [facility] Creatinine [Mass/Vol] 1.12 mg/dL High 0.52 - 1.04 mg/dL [facility] GFR/1.73 sq M.predicted MDRD (S/P/Bld) [Vol rate/Area] 71.9 mL/min/{1.73_m2} - PINF [facility] Comment on above: Calculation based on the Chronic Kidney Disease Epidemiology Collaboration (CKD-EPI) equation refit without adjustment for race Glucose [Mass/Vol] 141 mg/dL High 70 - 100 mg/dL [facility] Potassium [Moles/Vol] 4.6 mmol/L 3.5 - 5.1 mmol/L [facility] Protein [Mass/Vol] 5.8 g/dL Low 6.3 - 8.2 g/dL [facility] Sodium [Moles/Vol] 132 mmol/L Low 135 - 145 mmol/L [facility] Urea nitrogen [Mass/Vol] 29 mg/dL High 7 - 17 mg/dL [facility] Slightly Hemolyzed. Interpret ALKALINE PHOSPHATASE, AST, and POTASSIUM with caution. [facility] Albumin [Mass/Vol] 3.6 g/dL 3.5 - 5.0 g/dL [facility] ALP [Catalytic activity/Vol] 346 U/L High 38 - 126 U/L [facility] ALT [Catalytic activity/Vol] 17 U/L 0 - 34 U/L [facility] Anion gap [Moles/Vol] 6 mmol/L 3 - 13 mmol/L [facility] AST [Catalytic activity/Vol] 40 U/L 15 - 46 U/L [facility] Bilirubin [Mass/Vol] 0.3 mg/dL 0.2 - 1 .3 mg/dL [facility] Calcium [Mass/Vol] 9.6 mg/dL 8.4 - 10. 4 mg/dL [facility] Chloride [Moles/Vol] 110 mmol/L High 98 - 10 7 mmol/L [facility] CO2 [Moles/Vol] 19 mmol/L Low 22 - 30 mmol/L [facility] Creatinine [Mass/Vol] 1.15 mg/dL High 0.52 - 1.04 mg/dL [facility] GFR/1.73 sq M.predicted MDRD (S/P/Bld) [Vol rate/Area] 69.7 mL/min/{1.73_m2} - PINF [facility] Comment on above: Calculation based on the Chronic Kidney Disease Epidemiology Collaboration (CKD-EPI) equation refit without adjustment for race Glucose [Mass/Vol] 97 mg/dL 70 - 100 mg/dL [facility] Potassium [Moles/Vol] 4.7 mmol/L 3.5 - 5.1 mmol/L [facility] Protein [Mass/Vol] 6.9 g/dL 6.3 - 8.2 g/dL [facility] Sodium [Moles/Vol] 135 mmol/L 135 - 145 mmol/L [facility] Urea nitrogen [Mass/Vol] 30 mg/dL High 7 - 17 mg/dL [facility] Creatinine (U) [Mass/Vol]on 04-12-2022 CREATININE, URINE 144.2 mg/dL [facility] Determination of erythrocyte mean corpuscular volume (MCV)Ordered By: Dr. Huston on 04-12-2022 MCV (RBC) [Entitic vol] 88.3 fL 81-99 [facility] Hematocrit Auto (Bld) [Volum e fraction]Ordered By: Dr. Huston on 04-12-2022 Hematocrit (Bld) [Volume fraction] 41.5 % 37-47 [facility] Ketones Test strip Ql (U)Ord ered By: Dr. Huston on 04-12-2022 Ketones Ql (U) Negative Negative [facility] Labor and Delivery Noteon Labor and Delivery [...] anesthesia recovery Intrauterine Device Information: [employer], Lot [id number],[facility] Jun 2026 FINDINGS: Live Male [...] the R (more content not included)... Normal [facility] Laboratory - Chemistry and C hemistry - challengeon 04-12-2022 Sodium (24H U) [Mass/Vol] 43 mmol/L 30 - 90 mmol/L [facility] Magnesium [Mass/Vol] 4.9 mg/dL High 1.6 - 2 .3 mg/dL [facility] Magnesium [Mass/Vol] 4.7 mg/dL High 1.6 - 2 .3 mg/dL [facility] Laboratory - Chemistry and C hemistry - challengeOrdered By: Dr. Huston on 04-12-2022 ALP [Catalytic activity/Vol] 305 U/L 45-117 [facility] ALT [Catalytic activity/Vol] 20 U/L 13-56 [facility] CO2 [Moles/Vol] 24.0 mmol/L 21.0-32.0 [facility] Globulin (S) [Mass/Vol] 4.0 g/dL 2.2-4.2 [facility] Urea nitrogen/Creatinine [Mass ratio] 25.0 mg/mg 10-20 [facility] Laboratory - Hematology and Cell countsOrdered By: Dr. Huston on 04-12-2022 Erythrocyte distribution width (RBC) [Entitic vol] 41.3 fL 35.1-43.9 [facility] Erythrocyte distribution width (RBC) [Ratio] 12.7 % 11.6-14.6 [facility] Immature granulocytes/100 WBC (Bld) 1.100 % 0.0-0.9 [facility] Comment on above: IG% - Immature Granu locytes (promyelocytes, myelocytes and metamyelocytes) > 1% indicates that a LEFT SHIFT is Present. MCH (RBC) [Entitic mass] 30.4 pg 27.0-32.0 [facility] Nucleated RBC/100 WBC (Bld) [Ratio] 0 % 0-5 [facility] Laboratory - Urinalysison Protein (U) [Mass/Vol] mg/dL High 0 - 12 mg/dL [facility] MCHC Auto (RBC) [Mass/Vol]Or dered By: Dr. Huston on 04-12-2022 MCHC (RBC) [Mass/Vol] 34.5 g/dL 32-36 [facility] Magnesium [Mass/Vol]on 04-12 Slightly Hemolyzed. Interpret with caution. [facility] Nitrite Test strip Ql (U)Ord ered By: Dr. Huston on 04-12-2022 Nitrite Ql (U) Positive Negative [facility] No Panel Informationon 04-12 Interpretation and review of laboratory results Normal [facility] Interpretation and review of laboratory results Abnormal [facility] Interpretation and review of laboratory results Abnormal [facility] Interpretation and review of laboratory results Abnormal [facility] No Panel InformationOrdered By: Dr. Huston on 04-12-2022 Estimated Creatinine Clearance Calc 63.46 ml/min [facility] Estimated GFR (MDRD) Amer 75 mL/min >60 [facility] Comment on above: GFR Calc Estimated GFR (MDRD) Non-Af Amer 62 mL/min >60 [facility] Comment on above: Non- GFR Calc Platelets bldOrdered By: Dr. Huston on 04-12-2022 Platelets (Bld) [#/Vol] 249 10*3/uL 150-450 [facility] Progress Noteon 04-12-2022 Progress Note Consult by [...] from NICU Potential need for transfer to [facility] if needs esclation of care, based on a variety of factors. Handouts given. No further questions. A/P: Patient is a 21 Year old At 29 Weeks 2 Days by ultrasound With 1. Current Management per OB 2. NICU to attend delivery 3. Call NICU if further questions. Maya Mahoney MANAGEMENT TRAINEE MARKETING-CORE BLOWER OPERATOR Barb Diaz, MANAGEMENT TRAINEE MARKETING - CORE BLOWER OPERATOR [facility] Progress Note Safety Huddle Note Kiera Bello at 29w2d admitted as a transport for IOL-PreEwSF. Due to early gestation and closed cervix, recommendation is to proceed with PCD. Bps are currently controlled and patient asymptomatic along with cat I FHT so is unscheduled but not emergent. Safety huddle performed with cooker operator, patient's primary RN, residents, attending, NICU staff and OB anesthesia in attendance. Decision made to proceed with unscheduled PCD at [address] Harris and lodge sales associate are available. All in agreement. Harris Beltre, 04/12/2022 5:30 PM Normal [facility] Protein Test strip Ql (U)Ord ered By: Dr. Huston on 04-12-2022 Protein Ql (U) 500 mg/dl Negative [facility] Serum or plasma albumin kemi urement (mass/volume)Ordered By: Dr. Huston on 04-12-2022 Albumin [Mass/Vol] 2.7 g/dL 3.2-5.0 [facility] Serum or plasma albumin/glob ulin mass ratioOrdered By: Dr. Huston on 04-12-2022 Albumin/Globulin [Mass ratio] 0.7 {ratio} 0.9-2.4 [facility] Serum or plasma calcium kemi urement (mass/volume)Ordered By: Dr. Huston on 04-12-2022 Calcium [Mass/Vol] 10.2 mg/dL 8.5-10.1 [facility] Serum or plasma creatinine m easurement (mass/volume)Ordered By: Dr. Huston on 04-12-2022 Creatinine [Mass/Vol] 1.16 mg/dL 0.55-1.02 [facility] Comment on above: The validity of the calculated GFR & GFRAA in patients over 70 years has not been determined. Clinical correlation is essential. Serum or plasma urea nitroge n measurement (mass/volume)Ordered By: Dr. Huston on 04-12-2022 Urea nitrogen [Mass/Vol] 29 mg/dL 7-18 [facility] Thin prep Papanicolaou smear with manual screeningOrdered By: Dr. Huston on 04-12-2022 Thin prep Papanicolaou smear with manual screening 24 U/L 15-37 [facility] Thin prep Papanicolaou smear with manual screening 6 5-15 [facility] US OB FOLLOW UP TRANSABDOMIN AL APPROACHon 04-12-2022 US OB FOLLOW UP TRANSABDOMINAL APPROACH OBSTETRICS REPORT (Signed Final 04/12/2022 04:02 pm) PATIENT INFO: ID #: [id number] : [birth year] (21 yrs)(F) Name: KIERA BELLO Visit Date: 04/12/2022 03:51 pm PERFORMED BY: Attending: Gia Mclaughlin MD Performed By: Brandee Ferrera RDMS Referred By: HARRIS BELTRE Location: [facility] IP Visit Type: Outpatient -Triage SERVICE(S) PROVIDED: [place] [id number] BPP w/out NST 15389 US Doppler umbilical art 33348 INDICATIONS: Preeclampsia EVALUATION: Num Of Fetuses: 1 [...] findings do not guarantee normal outcomes. [facility] Urine blood detectionOrdered By: Dr. Huston on 04-12-2022 RBC Ql (U) 25 /ul Negative [facility] Urine clarityOrdered By: Dr. Huston on 04-12-2022 Clarity (U) Sl. Cloudy Clear [facility] Urine color determinationOrd ered By: Dr. Huston on 04-12-2022 Color (U) Yellow Yellow [facility] Urine creatinine measurement (mass/volume)Ordered By: Dr. Huston on 04-12-2022 Creatinine (U) [Mass/Vol] 307.00 mg/dL NO RANGE EST. [facility] Urine glucose detectionOrder ed By: Dr. Huston on 04-12-2022 Glucose Ql (U) Normal mg/dl Normal [facility] Urine leukocyte esterase det ection by dipstickOrdered By: Dr. Huston on 04-12-2022 Leukocyte esterase Test strip Ql (U) 100 /ul Negative [facility] Urine pHOrdered By: Dr. Sivakumar flores on 04-12-2022 pH (U) 6.0 [pH] 5.0 - 8.0 [facility] Urine protein measurement (m ass/volume)Ordered By: Dr. Huston on 04-12-2022 Protein (U) [Mass/Vol] 3082.1 mg/dL 0.0-11.8 [facility] Urine protein/creatinine mas s ratioOrdered By: Dr. Huston on 04-12-2022 Protein/Creatinine (U) [Mass ratio] 13773 mg/g CRE 0-200 [facility] Urine specific gravity measu rementOrdered By: Dr. Huston on 04-12-2022 Specific gravity (U) [Rel density] 1.020 1.002-1.030 [facility] Urobilinogen Auto test strip Ql (U)Ordered By: Dr. Huston on 04-12-2022 Urobilinogen Ql (U) Normal mg/dl Normal [facility] Absolute lymphocyte countOrd ered By: Dr. Huston on 03-29-2022 Lymphocytes Auto (Unsp spec) [#/Vol] 2.32 10*3/uL 0.83-4.51 [facility] Basophil percentageOrdered B y: Dr. Huston on 03-29-2022 Basophils/100 WBC (Bld) 0.7 % 0-1 [facility] Eosinophils/100 WBC (Bld) 6.3 % 0-5 [facility] Neutrophils (Bld) [#/Vol] 7.3 10*3/uL 2.0-7.7 [facility] Neutrophils/100 WBC (Bld) 65.2 % 47-70 [facility] WBC (Bld) [#/Vol] 11.2 10*3/uL 4.4-11.0 [facility] Blood erythrocytes count (nu mber/volume)Ordered By: Dr. Huston on 03-29-2022 RBC (Bld) [#/Vol] 3.88 10*6/uL 4.2-5.4 [facility] Blood hemoglobin measurement (mass/volume)Ordered By: Dr. Huston on 03-29-2022 Hemoglobin (Bld) [Mass/Vol] 12.1 g/dL 12.0-15.0 [facility] Blood lymphocytes/100 leukoc ytesOrdered By: Dr. Huston on 03-29-2022 Lymphocytes/100 WBC (Bld) 20.8 % 19-41 [facility] Blood monocytes/100 leukocyt esOrdered By: Dr. Huston on 03-29-2022 Monocytes/100 WBC (Bld) 6.0 % 0-10 [facility] Blood platelet mean volumeOr dered By: Dr. Huston on 03-29-2022 Platelet mean volume (Bld) [Entitic vol] 10.8 fL 6.2-12.0 [facility] Determination of erythrocyte mean corpuscular volume (MCV)Ordered By: Dr. Huston on 03-29-2022 MCV (RBC) [Entitic vol] 92.0 fL 81-99 [facility] Gestational diabetes screen 1-hour screen with 50g oral glucose loadOrdered By: Dr. Huston on 03-29-2022 Glucose 1 Hr post 50 g glucose PO [Mass/Vol] 131 mg/dL 70-140 [facility] Hematocrit Auto (Bld) [Volum e fraction]Ordered By: Dr. Huston on 03-29-2022 Hematocrit (Bld) [Volume fraction] 35.7 % 37-47 [facility] Laboratory - Hematology and Cell countsOrdered By: Dr. Huston on 03-29-2022 Erythrocyte distribution width (RBC) [Entitic vol] 40.5 fL 35.1-43.9 [facility] Erythrocyte distribution width (RBC) [Ratio] 12.2 % 11.6-14.6 [facility] Immature granulocytes/100 WBC (Bld) 1.000 % 0.0-0.9 [facility] Comment on above: IG% - Immature Granu locytes (promyelocytes, myelocytes and metamyelocytes) > 1% indicates that a LEFT SHIFT is Present. MCH (RBC) [Entitic mass] 31.2 pg 27.0-32.0 [facility] Nucleated RBC/100 WBC (Bld) [Ratio] 0 % 0-5 [facility] MCHC Auto (RBC) [Mass/Vol]Or dered By: Dr. Huston on 03-29-2022 MCHC (RBC) [Mass/Vol] 33.9 g/dL 32-36 [facility] Platelets bldOrdered By: Dr. Huston on 03-29-2022 Platelets (Bld) [#/Vol] 249 10*3/uL 150-450 [facility] Chlamydia sp identified Org specific cx Nom (Genital specimen)on 01-05-2022 External Chlamydia Screen Negative Negative [facility] Comment on above: previously positive on 10/21/21 Chlamydia trachomatis rRNA d etection by probe and target amplification methodOrdered By: Dr. Huston on 01-05-2022 C. trachomatis rRNA ÁNGEL+probe Ql (Unsp spec) Negative Negative [facility] Laboratory - Microbiology an d Antimicrobial susceptibilityOrdered By: Dr. Huston on 01-05-2022 N. gonorrhoeae DNA ÁNGEL+probe Ql (Unsp spec) Negative Negative [facility] Comment on above: Performed at: =[address] [id number] Director: Emilia Barraza MD, Phone: [phone] No Panel Informationon 01-05 External Gonorrhea Screen Negative Negative [facility] Dr. Huston from [facility] OB called in to verify labs with Ayo MORRISSEY at 1750 in 04/12/22 [facility] Absolute lymphocyte counton 11-04-2021 Lymphocytes Auto (Unsp spec) [#/Vol] 1.75 10*3/uL 0.83-4.51 [facility] Work Phone: Basophil percentageon 2021 Basophils/100 WBC (Bld) 0.6 % 0-1 [facility] Work Phone: Eosinophils/100 WBC (Bld) 4.1 % 0-5 [facility] Work Phone: Neutrophils (Bld) [#/Vol] 5.7 10*3/uL 2.0-7.7 [facility] Work Phone: Neutrophils/100 WBC (Bld) 68.5 % 47-70 [facility] Work Phone: WBC (Bld) [#/Vol] 8.3 10*3/uL 4.4-11.0 [facility] Work Phone: Blood erythrocytes count (nu mber/volume)on 11-04-2021 RBC (Bld) [#/Vol] 4.30 10*6/uL 4.2-5.4 [facility] Work Phone: Blood hemoglobin measurement (mass/volume)on 11-04-2021 Hemoglobin (Bld) [Mass/Vol] 13.0 g/dL 12.0-15.0 [facility] Work Phone: Blood lymphocytes/100 leukoc yteson 11-04-2021 Lymphocytes/100 WBC (Bld) 21.2 % 19-41 [facility] Work Phone: Blood monocytes/100 leukocyt eson 11-04-2021 Monocytes/100 WBC (Bld) 5.2 % 0-10 [facility] Work Phone: Blood platelet mean volumeon 11-04-2021 Platelet mean volume (Bld) [Entitic vol] 9.8 fL 6.2-12.0 [facility] Work Phone: Determination of erythrocyte mean corpuscular volume (MCV)on 11-04-2021 MCV (RBC) [Entitic vol] 91.6 fL 81-99 [facility] Work Phone: HBV surface Ag IA Qlon 11-04 External Hepatitis B Surface Ag Negative Negative, None Detected [facility] [employer] HCV Ab IA Qlon 11-04-2021 [facility] HEPAT[facility]IS C ANTIBODY, EXTERNAL RESULT Negative [facility] HIV 1 and HIV-2 antibody ass ay with HIV-1 p24 antigen detectionon 11-04-2021 HIV 1+2 Ab+HIV1 p24 Ag IA Ql Non-Reactive Nonreactive [facility] Work Phone: HIV 1+2 Ab and HIV1 p24 Ag I A.rapid Nom (S/P/Bld)on 11-04-2021 HIV-1/HIV-2 Ab Negative [facility] Hematocrit Auto (Bld) [Volum e fraction]on 11-04-2021 Hematocrit (Bld) [Volume fraction] 39.4 % 37-47 [facility] Work Phone: Laboratory - Hematology and Cell countson 11-04-2021 Erythrocyte distribution width (RBC) [Entitic vol] 40.3 fL 35.1-43.9 [facility] Work Phone: Erythrocyte distribution width (RBC) [Ratio] 12.1 % 11.6-14.6 [facility] Work Phone: Immature granulocytes/100 WBC (Bld) 0.400 % 0.0-0.9 [facility] Work Phone: Comment on above: IG% - Immature Granu locytes (promyelocytes, myelocytes and metamyelocytes) > 1% indicates that a LEFT SHIFT is Present. MCH (RBC) [Entitic mass] 30.2 pg 27.0-32.0 [facility] Work Phone: Nucleated RBC/100 WBC (Bld) [Ratio] 0 % 0-5 [facility] Work Phone: MCHC Auto (RBC) [Mass/Vol]on 11-04-2021 MCHC (RBC) [Mass/Vol] 33.0 g/dL 32-36 [facility] Work Phone: No Panel InformationOrdered By: Sabino Shetty on 11-04-2021 External Rh Factor Positive [facility] Dr. Huston from [facility] OB called in to verify labs with Ayo RN at 1750 in 04/12/22 [facility] No Panel Informationon 11-04 External Rubella IGG Quantitation Positive [facility] Hepatitis B Surface Antigen Non-Reactive Nonreactive [facility] Work Phone: Hepatitis C Antibody Non-Reactive Nonreactive [facility] Work Phone: Comment on above: Non Reactive: < 0.8 Equivocal: >/= 0.8 to < 1.0 Reactive: >/= 1.0The CDC recommends that a reactive/equivocal HCV antibody result be followed up by the HCV Nucleic Acid Amplificationtest (603862) Rubella IgG Antibody Reactive Nonreactive [facility] Work Phone: Comment on above: Antibody Results Int erpretation of Immune Status Non Reactive Presumed Non-Immune Equivocal Equivocal Reactive Presumed Immune Platelets bldon 11-04-2021 Platelets (Bld) [#/Vol] 301 10*3/uL 150-450 [facility] Work Phone: Reagin Ab RPR Ql (S)on 11-04 External RPR Non-Reactive Borderline, Nonreactive, Weakly Reactive, Equivocal [facility] Serum Treponema species anti body detectionon 11-04-2021 Treponema sp Ab Ql (S) Non-Reactive [facility] Work Phone: Serum Varicella zoster virus IgG antibody assay by immunoassay (units/volume)on 11-04-2021 VZV IgG IA Qn (S) 314 index Immune >165 [facility] Work Phone: Comment on above: Negative <135 Equivo zak 135 - 165 Positive >165A positive result generally indicates exposure to thepathogen or administration of specific immunoglobulins,but it is not indication of active infection or stageof disease.Performed at: [facility] [id number] Director: Wei Smith PhD, Phone: [phone] Cervical or vagninal specime n microscopic examination by cytology stain (reported ason 10-21-2021 Cytology report Cyto stain Doc (Cvx/Vag) Comment . [facility] Work Phone: Comment on above: The Pap [...] rRNA ÁNGEL+probe Ql (Unsp spec) Positive Negative [facility] Work Phone: Laboratory - Cytologyon 09-25 Flight Technician Cyto stain Nom (Cvx/Vag) [ID] Comment . [facility] Work Phone: Comment on above: Zuleyma Westfall, Cyto technologist (ASCP) Laboratory - Microbiology an d Antimicrobial susceptibilityon 10-21-2021 N. gonorrhoeae DNA ÁNGEL+probe Ql (Unsp spec) Negative Negative [facility] Work Phone: Comment on above: Performed at: [facility] [id number] Director: Emilia Barraza MD, Phone: [phone] Laboratory - Miscellaneous t estson 10-21-2021 Service comment (Unsp spec) [Interp] Comment . [facility] Work Phone: Comment on above: This liquid based Th inPrep(R) pap test was screened withthe use of an image guided system. Service comment (Unsp spec) [Interp] . . [facility] Work Phone: No Panel Informationon 10-21 Human Papillomavirus Screen Comment . [facility] Work Phone: Comment on above: The HPV DNA reflex c marcos were not met with this specimenresult therefore, no HPV testing was performed.Performed at: [address] [id number] Director: Emilia Barraza MD, Phone: [phone] Pathology report final diagnosis Narrative Comment . [facility] Work Phone: Comment on above: NEGATIVE FOR INTRAEP ITHELIAL LESION OR MALIGNANCY. Serum or plasma choriogonado tropin detectionon 10-21-2021 HCG ( test) Ql 1755 mIU/mL <4 [facility] Work Phone: Comment on above: hCG levels with Gest ational AgeGestational Age hCG mIU/mL (IU/L)0.2 - 1 week 5 - 501-2 weeks 50 - 5002-3 weeks 100 - 63702-7 weeks 500 - 677628-5 weeks 1000 - 843186-7 weeks 73146 - 100,0006-8 weeks 86835 - 200,0002-3 months 04329 - 100,000 Absolute lymphocyte counton 10-19-2021 Lymphocytes Auto (Unsp spec) [#/Vol] 3.17 10*3/uL 0.83-4.51 [facility] Work Phone: Basophil percentageon 2021 Basophils/100 WBC (Bld) 0.6 % 0-1 [facility] Work Phone: Chloride [Moles/Vol] 107 mmol/L 98-107 [facility] Work Phone: Eosinophils/100 WBC (Bld) 3.7 % 0-5 [facility] Work Phone: Glucose [Mass/Vol] 98 mg/dL 74-106 [facility] Work Phone: Neutrophils (Bld) [#/Vol] 6.6 10*3/uL 2.0-7.7 [facility] Work Phone: Neutrophils/100 WBC (Bld) 60.6 % 47-70 [facility] Work Phone: Potassium [Moles/Vol] 3.6 mmol/L 3.5-5.1 [facility] Work Phone: Sodium [Moles/Vol] 137 mmol/L 136-145 [facility] Work Phone: WBC (Bld) [#/Vol] 10.9 10*3/uL 4.4-11.0 [facility] Work Phone: [phone] Basophil percentage 0-5 SEEN /hpf 0-[address] [facility] Work Phone: [phone] Bilirubin Test strip Ql (U)o n 10-19-2021 Bilirubin Ql (U) Negative Negative [facility] Work Phone: Blood erythrocytes count (nu mber/volume)on 10-19-2021 RBC (Bld) [#/Vol] 4.05 10*6/uL 4.2-5.4 [facility] Work Phone: Blood hemoglobin measurement (mass/volume)on 10-19-2021 Hemoglobin (Bld) [Mass/Vol] 12.7 g/dL 12.0-15.0 [facility] Work Phone: Blood lymphocytes/100 leukoc yteson 10-19-2021 Lymphocytes/100 WBC (Bld) 29.1 % 19-41 [facility] Work Phone: [phone] Blood monocytes/100 leukocyt eson 10-19-2021 Monocytes/100 WBC (Bld) 5.0 % 0-10 [facility] Work Phone: Blood platelet mean volumeon 10-19-2021 Platelet mean volume (Bld) [Entitic vol] 9.9 fL 6.2-12.0 [facility] Work Phone: Determination of erythrocyte mean corpuscular volume (MCV)on 10-19-2021 MCV (RBC) [Entitic vol] 91.1 fL 81-99 [facility] Work Phone: Hematocrit Auto (Bld) [Volum e fraction]on 10-19-2021 Hematocrit (Bld) [Volume fraction] 36.9 % 37-47 [facility] Work Phone: Ketones Test strip Ql (U)on 10-19-2021 Ketones Ql (U) Negative Negative [facility] Work Phone: Laboratory - Chemistry and C hemistry - challengeon 10-19-2021 CO2 [Moles/Vol] 26.0 mmol/L 21.0-32.0 [facility] Work Phone: Urea nitrogen/Creatinine [Mass ratio] 19.5 mg/mg 10-20 [facility] Work Phone: Laboratory - Hematology and Cell countson 10-19-2021 Erythrocyte distribution width (RBC) [Entitic vol] 40.5 fL 35.1-43.9 [facility] Work Phone: [phone] Erythrocyte distribution width (RBC) [Ratio] 12.0 % 11.6-14.6 [facility] Work Phone: Immature granulocytes/100 WBC (Bld) 1.000 % 0.0-0.9 [facility] Work Phone: Comment on above: IG% - Immature Granu locytes (promyelocytes, myelocytes and metamyelocytes) > 1% indicates that a LEFT SHIFT is Present. MCH (RBC) [Entitic mass] 31.4 pg 27.0-32.0 [facility] Work Phone: Nucleated RBC/100 WBC (Bld) [Ratio] 0 % 0-5 [facility] Work Phone: MCHC Auto (RBC) [Mass/Vol]on 10-19-2021 MCHC (RBC) [Mass/Vol] 34.4 g/dL 32-36 [facility] Work [facility]: Mucus LM Ql (Urine sed)on Mucus Ql (Urine sed) 0 SEEN /hpf [facility] Work Phone: Nitrite Test strip Ql (U)on 10-19-2021 Nitrite Ql (U) Negative Negative [facility] Work Phone: No Panel Informationon 10-19 Estimated Creatinine Clearance Calc 80.02 ml/min [facility] Work Phone: Estimated GFR (MDRD) Amer 98 mL/min >60 [facility] Work Phone: Comment on above: GFR Calc Estimated GFR (MDRD) Non-Af Amer 81 mL/min >60 [facility] Work Phone: Comment on above: Non- GFR Calc Platelets bldon 10-19-2021 Platelets (Bld) [#/Vol] 292 10*3/uL 150-450 [facility] Work Phone: Protein Test strip Ql (U)on 10-19-2021 Protein Ql (U) Negative Negative [facility] Work Phone: Serum or plasma calcium kemi urement (mass/volume)on 10-19-2021 Calcium [Mass/Vol] 9.1 mg/dL 8.5-10.1 [facility] Work Phone: Serum or plasma choriogonado tropin detectionon 10-19-2021 HCG ( test) Ql 961 mIU/mL <4 [facility] Work Phone: Comment on above: hCG levels with Gest ational AgeGestational Age hCG mIU/mL (IU/L)0.2 - 1 week 5 - 501-2 weeks 50 - 5002-3 weeks 100 - 78848-9 weeks 500 - 145932-5 weeks 1000 - 879512-2 weeks 27794 - 100,0006-8 weeks 68622 - 200,0002-3 months 73842 - 100,000 Serum or plasma creatinine m easurement (mass/volume)on 10-19-2021 Creatinine [Mass/Vol] 0.92 mg/dL 0.55-1.02 [facility] Work Phone: Comment on above: The validity of the calculated GFR & GFRAA in patients over 70 years has not been determined. Clinical correlation is essential. Serum or plasma urea nitroge n measurement (mass/volume)on 10-19-2021 Urea nitrogen [Mass/Vol] 18 mg/dL 7-18 [facility] Work Phone: Squamous epithelial cells de tection in urine sediment by light microscopyon 10-19-2021 Epithelial cells.squamous LM Ql (Urine sed) 0-5 SEEN /hpf 5-10 [facility] Work Phone: Thin prep Papanicolaou smear with manual screeningon 10-19-2021 Thin prep Papanicolaou smear with manual screening 4 5-15 [facility] Work Phone: Urine blood detectionon 09-25 RBC Ql (U) 250 /ul Negative [facility] Work Phone: RBC Ql (U) 0-5 SEEN /hpf 0-5 [facility] Work Phone: Urine clarityon 10-19-2021 Clarity (U) Clear Clear [facility] Work Phone: Urine color determinationon 10-19-2021 Color (U) Straw Yellow [facility] Work Phone: Urine glucose detectionon Glucose Ql (U) Normal mg/dl Normal [facility] Work Phone: Urine leukocyte esterase det ection by dipstickon 10-19-2021 Leukocyte esterase Test strip Ql (U) 25 /ul Negative [facility] Work Phone: Urine pHon 10-19-2021 pH (U) 6.0 [pH] 5.0 - 8.0 [facility] Work Phone: Urine sediment bacteria coun t by microscopy (number/high power field)on 10-19-2021 Bacteria LM.HPF (Urine sed) [#/Area] 1 /[HPF] None Seen [facility] Work Phone: Urine specific gravity measu rementon 07-26-2022 Specific gravity (U) [Rel density] 1.015 1.002-1.030 [facility] Work Phone: Urobilinogen Auto test strip Ql (U)on 10-19-2021 Urobilinogen Ql (U) Normal mg/dl Normal [facility] Work Phone: ZINCon 06-23-2021 ZINC 92 ug/dL Normal 44-115 [facility] Comment on above: Result Comment: Dete ction Limit = 5 Test(s) 507190-Ujem, Plasma or Serum was developed and its performance characteristics determined by [employer]. It has not been cleared or approved by the Food and Drug Administration. Performed By: #### T YURIDIAS #### [address] [address] VITAMIN D 1,25-DIHYDROXYon 0 06-20-2021 VITAMIN D 1,25-DIHYDROXY 41.4 pg/mL Normal 19.9-79.3 [facility] Comment on above: Result Comment: INTE RPRETIVE INFORMATION: Vitamin D, 1,25-Dihydroxy This test is primarily indicated during patient evaluation for hypercalcemia and renal failure. A normal result does not rule out Vitamin D deficiency. The recommended test for diagnosing Vitamin D deficiency is Vitamin D 25-hydroxy. Performed By: [facility] [address] [place] [address] [employer] Generator Operator: Irina Styles MD Performed By: #### V TDDI #### [employer] [address] [place] [address] ANTITHYROID PEROX. ABon - ANTITHYROID PEROX. AB <28 Normal [facility] Comment on above: Result Comment: Nega tive: <=60 U/mL Positive: >60 U/mL Performed By: #### T POA2 #### [facility] [address] [place] [address] TRIIODOTHYRONINEon TRIIODOTHYRONINE 120 ng/dL Normal 80 - 210 [facility] Comment on above: Performed By: #### T HYDS #### [address] [address] CBC AND DIFFERENTIALon 06-17 Basophils (Bld) [#/Vol] 0.10 10*3/uL Normal 0.00 - 0.1 0 [facility] Comment on above: Performed By: #### T HYDS #### [address] [address] Basophils/100 WBC (Bld) 0.8 % Normal 0.0 - 2.0 [facility] Comment on above: Performed By: #### T HYDS #### [address] [address] Eosinophils (Bld) [#/Vol] 0.80 10*3/uL High 0.00 - 0.70 [facility] Comment on above: Performed By: #### T HYDS #### [address] [address] Eosinophils/100 WBC (Bld) 7.5 % Normal 0.0 - 6.0 [facility] Comment on above: Performed By: #### T HYDS #### [address] [address] Erythrocyte distribution width (RBC) [Ratio] 13.7 % Normal 11.5 - 14.5 [facility] Comment on above: Performed By: #### T HYDS #### [address] [address] Hematocrit (Bld) [Volume fraction] 44.7 % Normal 36.0 - 46.0 [facility] Comment on above: Performed By: #### T HYDS #### [address] [address] Hemoglobin (Bld) [Mass/Vol] 15.1 g/dL Normal 12.0 - 16.0 [facility] Comment on above: Performed By: #### T HYDS #### [address] [address] Lymphocytes (Bld) [#/Vol] 2.80 10*3/uL Normal 1.20 - 4.80 [facility] Comment on above: Performed By: #### T HYDS #### [address] [address] Lymphocytes/100 WBC (Bld) 26.2 % Normal 13.0 - 44.0 [facility] Comment on above: Performed By: #### T HYDS #### [address] [address] MCHC (RBC) [Mass/Vol] 33.7 g/dL Normal 32.0 - 36.0 [facility] Comment on above: Performed By: #### T HYDS #### [address] [address] MCV (RBC) [Entitic vol] 91 fL Normal 80 - 100 U [facility] Comment on above: Performed By: #### T HYDS #### [address] [address] Monocytes (Bld) [#/Vol] 0.40 10*3/uL Normal 0.10 - 1.0 0 [facility] Comment on above: Performed By: #### T HYDS #### [address] [address] Monocytes/100 WBC (Bld) 4.1 % Normal 2.0 - 10.0 [facility] Comment on above: Performed By: #### T HYDS #### [address] [address] Neutrophils (Bld) [#/Vol] 6.60 10*3/uL Normal 1.20 - 7.70 [facility] Comment on above: Result Comment: Perc ent differential counts (%) should be interpreted in the context of the absolute cell counts (cells/L). Performed By: #### T HYDS #### [address] [address] Neutrophils/100 WBC (Bld) 61.4 % Normal 40.0 - 80.0 [facility] Comment on above: Performed By: #### T HYDS #### [address] [address] NUCLEATED RBC 0.7 /100 WBC Normal [facility] Comment on above: Performed By: #### T HYDS #### [address] [address] Platelets (Bld) [#/Vol] 305 10*3/uL Normal 150 - 450 [facility] Comment on above: Performed By: #### T HYDS #### [address] [address] RBC 4.89 x10E12/L Normal 4.00 - 5.20 [facility] Comment on above: Performed By: #### T HYDS #### [address] [address] WBC (Bld) [#/Vol] 10.7 10*3/uL Normal 4.4 - 11.3 [facility] Comment on above: Performed By: #### T HYDS #### [address] [address] COMPREHENSIVE PANELon 06-17- 2021 Albumin [Mass/Vol] 4.8 g/dL Normal 3.4 - 5.0 [facility] Comment on above: Performed By: #### C MP #### [address] [address] ALP [Catalytic activity/Vol] 52 U/L Normal 33 - 110 [facility] Comment on above: Performed By: #### C MP #### [address] [address] ALT [Catalytic activity/Vol] 15 U/L Normal 7 - 45 [facility] Comment on above: Result Comment: Dulce ents treated with Sulfasalazine may generate falsely decreased results for ALT. Performed By: #### C MP #### [address] [address] Anion gap [Moles/Vol] 13 mmol/L Normal 10 - 20 [facility] Comment on above: Performed By: #### C MP #### [address] [address] AST [Catalytic activity/Vol] 22 U/L Normal 9 - 39 [facility] Comment on above: Performed By: #### C MP #### [address] [address] Bilirubin [Mass/Vol] 0.5 mg/dL Normal 0.0 - 1.2 [facility] Comment on above: Performed By: #### C MP #### [address] [address] Calcium [Mass/Vol] 9.7 mg/dL Normal 8.6 - 10.3 [facility] Comment on above: Performed By: #### C MP #### [address] [address] Chloride [Moles/Vol] 107 mmol/L Normal 98 - 107 [facility] Comment on above: Performed By: #### C MP #### [address] [address] Creatinine [Mass/Vol] 0.74 mg/dL Normal 0.50 - 1.05 [facility] Comment on above: Performed By: #### C MP #### [address] [address] eGFR FEMALE >90 Normal >90 [facility] Comment on above: Result Comment: CALC ULATIONS OF ESTIMATED GFR ARE PERFORMED USING THE 2020 CKD-EPI STUDY REFIT EQUATION WITHOUT THE RACE VARIABLE FOR THE IDMS-TRACEABLE CREATININE METHODS. https://jasn.asnjournals.org/content//ASN.2020 818261 Performed By: #### C MP #### [address] [address] Glucose [Mass/Vol] 74 mg/dL Normal 74 - 99 [facility] Comment on above: Performed By: #### C MP #### [address] [address] HCO3 (Bld) [Moles/Vol] 24 mmol/L Normal 21 - 32 [facility] Comment on above: Performed By: #### C MP #### [address] [address] Potassium [Moles/Vol] 4.0 mmol/L Normal 3.5 - 5.3 [facility] Comment on above: Performed By: #### C MP #### [address] [address] Protein [Mass/Vol] 7.7 g/dL Normal 6.4 - 8.2 [facility] Comment on above: Performed By: #### C MP #### [address] [address] Sodium [Moles/Vol] 140 mmol/L Normal 136 - 145 [facility] Comment on above: Performed By: #### C MP #### [address] [address] Urea nitrogen [Mass/Vol] 12 mg/dL Normal 6 - 23 [facility] Comment on above: Performed By: #### C MP #### [address] [address] FERRITINon 06-17-2021 FERRITIN 53 ug/L Normal 8 - 150 [facility] Comment on above: Performed By: #### F ERRI #### [address] [address] FOLATE, SERUMon 06-17-2021 Folate [Mass/Vol] 22.5 ng/mL Normal >5.0 [facility] Comment on above: Result Comment: Low <3.4 Borderline 3.4-5.0 Normal >5.0 . Patients receiving more than 5 mg/day of biotin may have interference in test results. A sample should be taken no sooner than eight hours after previous dose. Contact the testing laboratory for additional information. Performed By: #### F OLA2 #### [address] [address] THYROXINE,FREEon 06-17-2021 THYROXINE,FREE 0.79 ng/dL Normal 0.61 - 1.12 [facility] Comment on above: Result Comment: Thyr oxine Free testing is performed using different testing methodology at [facility] than at other [facility]. Direct result comparisons should only be made [...] draw. Performed By: #### T 4FRE #### [address] [address] TSHon 06-17-2021 TSH Qn 2.01 m[IU]/L Normal 0.44 - 3.98 [facility] Comment on above: Result Comment: TSH testing is performed using different testing methodology at [facility] than at other [facility]. Direct result comparisons should only be made within the same method. Performed By: #### T HYDS #### [address] [address] VITAMIN B12on 06-17-2021 Cobalamin (Vitamin B12) [Mass/Vol] 457 pg/mL Normal 211 - 911 [facility] Comment on above: Performed By: #### T HYDS #### [address] [address] VITAMIN D, 25-HYDROXYon 05-26 VITAMIN D, 25-HYDROXY 44 ng/mL Normal [facility] Comment on above: Result Comment: . DEFICIENCY: < 20 NG/ML INSUFFICIENCY: 20-29 NG/ML SUFFICIENCY: 30-100 NG/ML THIS ASSAY ACCURATELY QUANTIFIES THE SUM OF VITAMIN D3, 25-HYDROXY AND VIT D2,25-HYDROXY. Performed By: #### T HYDS #### [address] [address] Office Visiton 05-27-2021 Follow-up visit Diagnoses/Problems Anxiety [...] Vital Signs Recorded: 27May2021 09:00AM Heart Rate61 Vsxcuolx192 Cjwezoyvl55 Height5 ft 3 in Mejsiv345 lb BMI Wpwlgpxwnt59.55 kg/m2 BSA Calculated1.53 Tobacco Useb) No O2 Fhfzrlragb36 Physical Exam General: Alert and oriented, No acute distress. Psychiatric: Cooperative, Appropriate mood AND affect. Signatures Electronically signed by : Yoli Moreland MD; May 27 2021 9:22AM EST (Author) Normal [place] Tobacco Screening.on 022 Tobacco use status CPHS b) No [facility] Work Phone: Office Visiton [...] daily Vitals Vital Signs Recorded: 28Apr2021 08:04AM Gsjaidmzphv91.8 F Ljdfakcl508 Fxnchgjdw99 Height5 ft 3 in Licddd132 lb BMI Hmwpvbcqsa31.9 kg/m2 BSA Calculated1.55 Tobacco Useb) No Physical Exam General: Alert and oriented, No acute distress. Psychiatric: Cooperative, Appropriate mood AND affect. Signatures Electronically signed by : Yoli Moreland MD; Apr 29 2021 5:00PM EST (Author) Normal [place] Tobacco Screening.on 022 Tobacco use status CPHS b) No [facility] [facility] Work Phone: Office Visiton [...] 1 TABLET DAILY. Vitals Vital Signs Recorded: 74Hzs7680 08:19AM Qktxpdcdlfk94.7 F Heart Rate78 Kcqtseak084 Yvobrrhnr52 Height5 ft 3 in Juqjuc739 lb 4 oz BMI Kehhtiotho97.83 kg/m2 BSA Calculated1.57 Tobacco Useb) No O2 Elfxmhqgag97 Physical Exam General: Alert and oriented, No acute distress. Anxious/tearful Psychiatric: Cooperative, Appropriate mood AND affect. Results/Data Complete Blood Count + Kueuntkqcwuy05Bwl6367 09:31AMYoli Moreland [Mar 05, 2021 3:08PM Yoli Moreland] appt 03/11 Test NameResultFlagReference White Blood Cell Count5.5 x10E9/L4.4 - 11.3 Red Blood Cell Count4.80 x10E12/LSee Below Reference Range: 4.00 - 5.20 Nucleated Erythrocyte Count0.1 /100 WBC Exsnpiqrmf03.5 g/dLSee Below Reference Range: 12.0 - 16.0 HCT44.4 %See Below Reference Range: 36.0 - 46.0 MCV93 fL80 - 100 MCHC32.6 g/dLSee Below Reference Range: 32.0 - 36.0 Platelet Cvsoq437 x10E9/L150 - 450 RDW-CV12.9 %See Below Reference [...] Reference Range: 0.00 - 0.10 Comprehensive Metabolic Whznz47Plu8540 09:Yoli Moreland [Mar 05, 2021 3:08PM Yoli Moreland] appt 03/11 Test NameResultFlagReference Glucose, Serum82 mg/dL74 - 99 Sodium, Unvsy389 mmol/L136 - 145 POTASSIUM3.7 mmol/L3.5 - 5.3 Chloride, Kzmog007 mmol/L98 - 107 Bicarbonate, Serum26 mmol/L21 - 32 Anion Gap, Serum13 mmol/L10 - 20 Blood Urea Nitrogen, Serum16 mg/dL6 - 23 CREATININE0.82 mg/dLSee Below Reference Range: 0.50 - 1.05 Calcium, Serum10.0 mg/dL8.6 - 10.3 Albumin, Serum4.9 g/dL3.4 - 5.0 ALKALINE AEVIDYBCYHE57 U/L33 - 110 Protein, Total Serum7.4 g/dL6.4 [...] TSH WITH REFLEX TO FREE T4 IF [id number] 09:Yoli Moreland [Mar 05, 2021 3:08PM Yoli Moreland] appt 03/11 Test NameResultFlagReference Thyroid Stimulating Hormone, Serum1.28 mIU/LSee Below Reference Range: 0.44 - 3.98 TSH testing is performed using different testing methodology at [facility] than at other [facility]. Direct result comparisons should only be made within the same method. Vitamin B12, Mrfrm47Zqm6101 09:31AMLoYoli sánchez [Mar 05, 2021 3:08PM Yoli Moreland] appt 03/11 Test NameResultFlagReference Vitamin B12, Jszgg094 pg/mL211 - 911 Magnesium, Vphmc70Bhm6105 09:31AMJocelyngonzalo Yoli [Mar 05, 2021 3:08PM Yoli Moreland] appt 03/11 Test NameResultFlagReference Magnesium, Serum2.13 mg/dLSee Below Reference Range: 1.60 - 2.40 Signatures Electronically signed by : Yoli Moreland MD; Mar 12 2021 8:49AM EST (Author) Normal [place] Tobacco Screening.on 021 Tobacco use status CPHS b) No [facility] [facility] Work Phone: CBC AND DIFFERENTIALon 02-25 Basophils (Bld) [#/Vol] 0.00 10*3/uL Normal 0.00 - 0.1 0 [facility] Comment on above: Performed By: #### C BCDF #### [address] [address] Basophils/100 WBC (Bld) 0.9 % Normal 0.0 - 2.0 [facility] Comment on above: Performed By: #### C BCDF #### [address] [address] Eosinophils (Bld) [#/Vol] 0.30 10*3/uL Normal 0.00 - 0.70 [facility] Comment on above: Performed By: #### C BCDF #### [address] [address] Eosinophils/100 WBC (Bld) 5.1 % Normal 0.0 - 6.0 [facility] Comment on above: Performed By: #### C BCDF #### [address] [address] Erythrocyte distribution width (RBC) [Ratio] 12.9 % Normal 11.5 - 14.5 [facility] Comment on above: Performed By: #### C BCDF #### [address] [address] Hematocrit (Bld) [Volume fraction] 44.4 % Normal 36.0 - 46.0 [facility] Comment on above: Performed By: #### C BCDF #### [address] [address] Hemoglobin (Bld) [Mass/Vol] 14.5 g/dL Normal 12.0 - 16.0 [facility] Comment on above: Performed By: #### C BCDF #### [address] [address] Lymphocytes (Bld) [#/Vol] 1.80 10*3/uL Normal 1.20 - 4.80 [facility] Comment on above: Performed By: #### C BCDF #### [address] [address] Lymphocytes/100 WBC (Bld) 32.4 % Normal 13.0 - 44.0 [facility] Comment on above: Performed By: #### C BCDF #### [address] [address] MCHC (RBC) [Mass/Vol] 32.6 g/dL Normal 32.0 - 36.0 [facility] Comment on above: Performed By: #### C BCDF #### [address] [address] MCV (RBC) [Entitic vol] 93 fL Normal 80 - 100 [facility] Comment on above: Performed By: #### C BCDF #### [address] [address] Monocytes (Bld) [#/Vol] 0.30 10*3/uL Normal 0.10 - 1.0 0 [facility] Comment on above: Performed By: #### C BCDF #### [address] [address] Monocytes/100 WBC (Bld) 5.7 % Normal 2.0 - 10.0 [facility] Comment on above: Performed By: #### C BCDF #### [address] [address] Neutrophils (Bld) [#/Vol] 3.10 10*3/uL Normal 1.20 - 7.70 [facility] Comment on above: Result Comment: Perc ent differential counts (%) should be interpreted in the context of the absolute cell counts (cells/L). Performed By: #### C BCDF #### [address] [address] Neutrophils/100 WBC (Bld) 55.9 % Normal 40.0 - 80.0 [facility] Comment on above: Performed By: #### C BCDF #### [address] [address] NUCLEATED RBC 0.1 /100 WBC Normal [facility] Comment on above: Performed By: #### C BCDF #### [address] [address] Platelets (Bld) [#/Vol] 275 10*3/uL Normal 150 - 450 [facility] Comment on above: Performed By: #### C BCDF #### [address] [address] RBC 4.80 x10E12/L Normal 4.00 - 5.20 [facility] Comment on above: Performed By: #### C BCDF #### [address] [address] WBC (Bld) [#/Vol] 5.5 10*3/uL Normal 4.4 - 11.3 [facility] Comment on above: Performed By: #### C BCDF #### [address] [address] COMPREHENSIVE PANELon 2020 Albumin [Mass/Vol] 4.9 g/dL Normal 3.4 - 5.0 [facility] Comment on above: Performed By: #### C MP #### [address] [address] ALP [Catalytic activity/Vol] 46 U/L Normal 33 - 110 [facility] Comment on above: Performed By: #### C MP #### [address] [address] ALT [Catalytic activity/Vol] 12 U/L Normal 7 - 45 [facility] Comment on above: Result Comment: Dulce ents treated with Sulfasalazine may generate falsely decreased results for ALT. Performed By: #### C MP #### [address] [address] Anion gap [Moles/Vol] 13 mmol/L Normal 10 - 20 [facility] Comment on above: Performed By: #### C MP #### [address] [address] AST [Catalytic activity/Vol] 18 U/L Normal 9 - 39 [facility] Comment on above: Performed By: #### C MP #### [address] [address] Bilirubin [Mass/Vol] 0.9 mg/dL Normal 0.0 - 1.2 [facility] Comment on above: Performed By: #### C MP #### [address] [address] Calcium [Mass/Vol] 10.0 mg/dL Normal 8.6 - 10.3 [facility] Comment on above: Performed By: #### C MP #### [address] [address] Chloride [Moles/Vol] 103 mmol/L Normal 98 - 107 [facility] Comment on above: Performed By: #### C MP #### [address] [address] Creatinine [Mass/Vol] 0.82 mg/dL Normal 0.50 - 1.05 [facility] Comment on above: Performed By: #### C MP #### [address] [address] GFR- AM. >60 Normal >60 [facility] Comment on above: Result Comment: CALC ULATIONS OF ESTIMATED GFR ARE PERFORMED USING THE MDRD STUDY EQUATION FOR THE IDMS-TRACEABLE CREATININE METHODS. CLIN CHEM 2007;53:766-72 Performed By: #### C MP #### [address] [address] GFR-NON AM. >60 Normal >60 [facility] Comment on above: Performed By: #### C MP #### [address] [address] Glucose [Mass/Vol] 82 mg/dL Normal 74 - 99 [facility] Comment on above: Performed By: #### C MP #### [address] [address] HCO3 (Bld) [Moles/Vol] 26 mmol/L Normal 21 - 32 [facility] Comment on above: Performed By: #### C MP #### [address] [address] Potassium [Moles/Vol] 3.7 mmol/L Normal 3.5 - 5.3 [facility] Comment on above: Performed By: #### C MP #### [address] [address] Protein [Mass/Vol] 7.4 g/dL Normal 6.4 - 8.2 [facility] Comment on above: Performed By: #### C MP #### [address] [address] Sodium [Moles/Vol] 138 mmol/L Normal 136 - 145 [facility] Comment on above: Performed By: #### C MP #### [address] [address] Urea nitrogen [Mass/Vol] 16 mg/dL Normal 6 - 23 [facility] Comment on above: Performed By: #### C MP #### [address] [address] Complete Blood Count + Sherice kinsey 02-25-2021 Basophils/100 WBC (Bld) 0.9 % 0.0 - 2.0 [facility] DO Work Phone: Erythrocyte distribution width (RBC) [Ratio] 12.9 % See Below [facility] 205 DO Work Phone: Comment on above: Reference Range: 11. 5 - 14.5 Hematocrit (Bld) [Volume fraction] 44.4 % See Below [facility] 205 DO Work Phone: Comment on above: Reference Range: 36. 0 - 46.0 Hemoglobin (Bld) [Mass/Vol] 14.5 g/dL See [facility] 205 DO Work Phone: Comment on above: Reference Range: 12. 0 - 16.0 Lymphocytes/100 WBC (Bld) 32.4 % See Below [facility] 205 DO Work Phone: Comment on above: Reference Range: 13. 0 - 44.0 MCHC (RBC) [Mass/Vol] 32.6 g/dL See Below [facility] 205 DO Work Phone: Comment on above: Reference Range: 32. 0 - 36.0 MCV (RBC) [Entitic vol] 93 fL 80 - 100 [facility] 205 DO Work Phone: Monocytes/100 WBC (Bld) 5.7 % 2.0 - 10.0 M [facility] 205 DO Work Phone: Neutrophils/100 WBC (Bld) 55.9 % See Below [facility] 205 DO Work Phone: Comment on above: Reference Range: 40. 0 - 80.0 Platelets (Bld) [#/Vol] 275 10*3/uL 150 - 450 [facility] 205 DO Work Phone: RBC (Bld) [#/Vol] 4.80 {x10E12/L} See Below [facility] 205 DO Work Phone: Comment on above: Reference Range: 4.0 0 - 5.20 WBC (Bld) [#/Vol] 5.5 10*3/uL 4.4 - 11.3 [facility] davidson [facility] DO Work Phone: Complete Blood Count + Differential 0.00 {x10E9/L} See Below [facility] SERVICESWeston davidson [facility] DO Work Phone: Comment on above: Reference Range: 0.0 0 - 0.10 Complete Blood Count + Differential 0.30 {x10E9/L} See Below [facility] SERVICES[facility]on davidson [facility] DO Work Phone: Comment on above: Reference Range: 0.0 0 - 0.70 Reference Range: 0.1 0 - 1.00 Complete Blood Count + Differential 1.80 {x10E9/L} See Below [facility] SERVICESWeston davisdon [facility] DO Work Phone: Comment on above: Reference Range: 1.2 0 - 4.80 Complete Blood Count + Differential 3.10 {x10E9/L} See Below [facility] SERVICESWeston davidson [facility] DO Work Phone: Comment on above: Reference Range: 1.2 0 - 7.70 Percent differential counts (%) should be interpreted in the context of the absolute cell counts (cells/L). Complete Blood Count + Differential 5.1 % 0.0 - 6.0 [facility] SERVICESWeston davidson [facility] DO Work Phone: Complete Blood Count + Differential 0.1 {/100_WBC} [facility] SERVICESWeston [place] [address] DO Work Phone: Laboratory - Chemistry and C hemistry - challengeon 02-25-2021 Albumin BCP dye [Mass/Vol] 4.9 g/dL 3.4 - 5.0 [facility] SERVICESWeston davidson [facility] DO Work Phone: ALP [Catalytic activity/Vol] 46 U/L 33 - 110 [facility] 205 DO Work Phone: ALT With P-5'-P [Catalytic activity/Vol] 12 U/L 7 - 45 [facility] 205 DO Work Phone: Comment on above: Patients treated wit h Sulfasalazine may generate falsely decreased results for ALT. Anion gap [Moles/Vol] 13 mmol/L 10 - 20 [facility] 205 DO Work Phone: AST With P-5'-P [Catalytic activity/Vol] 18 U/L 9 - 39 -[facility] 205 DO Work Phone: Bilirubin [Mass/Vol] 0.9 mg/dL 0.0 - 1.2 MP[facility] 205 DO Work Phone: Calcium [Mass/Vol] 10.0 mg/dL 8.6 - 10.3 -Cla belgica t Medical [facility] 205 DO Work Phone: Chloride [Moles/Vol] 103 mmol/L 98 - 107 -C laremon t Medical [facility] 205 DO Work Phone: CO2 [Moles/Vol] 26 mmol/L 21 - 32 MP[facility] 205 DO Work Phone: Creatinine [Mass/Vol] 0.82 mg/dL See Below - [facility] 205 DO Work Phone: Comment on above: Reference Range: 0.5 0 - 1.05 Glucose [Mass/Vol] 82 mg/dL 74 - 99 MP-Cla [facility]ica t [facility] 205 DO Work Phone: Potassium [Moles/Vol] 3.7 mmol/L 3.5 - 5.3 MP- Claremon t [facility] DO Work Phone: Protein [Mass/Vol] 7.4 g/dL 6.4 - 8.[address] [facility] DO Work Phone: Sodium [Moles/Vol] 138 mmol/L 136 - 145 [facility] davidson [facility] DO Work Phone: TSH Qn 1.28 m[IU]/L See Below Marely davidson [facility] DO Work Phone: Comment on above: Reference Range: 0.4 4 - 3.98 TSH testing is performed using different testing methodology at [facility] than at other [facility]. Direct result comparisons should only be made within the same method. Urea nitrogen [Mass/Vol] 16 mg/dL 6 - 23 -Weston davidson [facility] DO Work Phone: MAGNESIUMon 02-25-2021 Magnesium [Mass/Vol] 2.13 mg/dL Normal 1.60 - 2.40 [facility] Comment on above: Performed By: #### M G #### [facility] [address] [place] [address] Magnesium, Serumon Magnesium [Mass/Vol] 2.13 mg/dL See Below Bienvenido davidson [facility] DO Work Phone: Comment on above: Reference Range: 1.6 0 - 2.40 No Panel Informationon 02-25 >60 >60 [facility] SERVICESWeston davidson [place] [address] DO Work Phone: Comment on above: CALCULATIONS [...] Differential; Status:In Progress - Specimen/Data Collected; Done: [id number] Comprehensive Metabolic Panel; Status:In Progress - Specimen/Data Collected; Done: [id number] Magnesium, Serum; Status:In Progress - Specimen/Data Collected; Done: [id number] TSH WITH REFLEX TO FREE T4 IF ABNORMAL; Status:In Progress - Specimen/Data Collected; Done: [id number] Vitamin B12, Serum; Status:In Progress - Specimen/Data Collected; Done: [id number] SocHx: Former smoker Tobacco Use Screening; Status:Complete; Done: [id number] Provider Impressions Will check some labs and [...] AM Vitals Vital Signs Recorded: 25Feb2021 08:51AM Vgrthkyrjbo92.2 F Heart Cujl759 Brqqzhda206 Zvdfuhats33 Height5 ft 3 in Zthtev365 lb 4 oz BMI Mmleypmdvy40.83 kg/m2 BSA Calculated1.57 Tobacco Useb) No O2 Unkikntklk02 Physical Exam General: Alert and oriented, No [...] Qn 1.28 m[IU]/L Normal 0.44 - 3.98 [facility] Comment on above: Result Comment: TSH testing is performed using different testing methodology at [facility] than at other [facility]. Direct result comparisons should only be made within the same method. Performed By: #### T HYDS #### [place] [address] Tobacco Screening.on 021 Tobacco use status CPHS b) No [facility] Work Phone: VITAMIN B12on 02-25-2021 Cobalamin (Vitamin B12) [Mass/Vol] 346 pg/mL Normal 211 - 911 [facility] Comment on above: Performed By: #### T HYDS #### [address] [address] Vitamin B12, Serumon 021 Cobalamin (Vitamin B12) [Mass/Vol] 346 pg/mL 211 - 911 [facility] [employer] [facility] 205 DO Work Phone: CORONAVIRUS 2019 BY PCRon SARS-CoV-2 (COVID-19) RNA ÁNGEL+probe Ql (Unsp spec) Not detected Normal Not Detected [facility] Comment on above: Result Comment: . This test has received FDA Emergency Use Authorization (EUA) and has been verified by [facility]. This test is only authorized for the duration of time that circumstances exist to justify the authorization of the emergency use of in vitro diagnostic tests for the detection of SARS-CoV-2 virus and/or diagnosis of COVID-19 infection under section 564(b)(1) of the Act, 21 U.S.C. 360bbb-3(b)(1), unless the authorization is terminated or revoked sooner. [facility] is certified under CLIA-88 as qualified to perform high complexity testing. Testing is performed in the [facility] laboratory located at [address] [place] [address]. SARS-CoV-2/Flu/RSV Multiplex Test: Fact sheet for providers: https://www.fda.gov/media/452390/download Fact sheet for patients: https://www.fda.gov/media/753154/download Performed By: #### C OV19 #### [place] [address] Lab Specimen Source Nasal, Nasopharyngeal Normal [facility] Comment on above: Performed By: #### C OV19 #### [place] [address] Covid 19 Resultson 1 SARS-CoV-2 (COVID-19) RNA [...] You may also be contacted by the [facility] to see if any of your close [...] or Naproxen (Aleve) can also be used. Vzcg-nlv-rgmxfeh cough and cold medicines can be used according to the instructions on the package. Some utdb-yec-liijiic medicines also contain acetaminophen. Make sure you [...] water are not available, use alcohol-based hand topographical surveyor. Avoid touching your eyes, nose, and mouth [...] 24 jeremy (more content not included)... Normal [facility] Provider Note - ED v2on 05-0 [...] documented data. SIGNIFICANT EVENTS: No documented data. 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] From Triage - ED 24-Jul-2020 22:11 Normal [facility] Risk Screen - Adult Emergenc yon [...] Communicatenone Learning Preferencesaudio Cultural Considerationsnone Developmental Considerationsnone Islam Considerationsnone Learning Assessment (Other Learner): Learning Assessment (Other Learner): Other learner availableno Pressure Injury/TB/Substance: Pressure Injury: Pressure Injury Present on Admissionno Do you have a coughno Admission Risk Screen: Significant IndicatorsComplete CAGE: CAGE: Is this an injured patient at a Trauma Center ([facility]/[place] /[place]): no Electronic Signatures: Denita Trivedi (RN) (Signed 24-Jul-2020 22:44) Authored: Preferred Language, Advanced Directives, Family Violence Adult, Learning Assessment (Patient), Learning Assessment (Other Learner), Pressure Injury/TB/Substance, Pressure Injury, CAGE Last Updated: 24-Jul-2020 22:44 by Denita Trivedi (RN) [facility] Triage - EDon 07-25-2020 Triage - ED [...] BMI (kg/m2): 21.289 Calculated BSA (m2) 1.56 [place] Coma Scale: Best Eye Response: (E4) spontaneous Best Motor Response: (M6) obeys commands Best Verbal Response: (V5) oriented Harley Score: 15 Mask applied: yes Last menstrual period: 03-Jul-2020 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 Patient has homicidal thoughts: no [...] 24-Jul-2020 22:15 by Giuseppe Coleman (GHANSHYAM) Normal [facility] HCG,URINEon 01-06-2020 Beta HCG ( test) Ql (U) Negative Normal Negative [facility] Comment on above: Performed By: #### H CGU #### [place] [address] [place] [address] CBC AND DIFFERENTIALon 11-20 Basophils (Bld) [#/Vol] 0.10 10*3/uL Normal 0.00 - 0.1 0 [facility] Comment on above: Performed By: #### C BCDF #### [address] [address] Basophils/100 WBC (Bld) 1.0 % Normal 0.0 - 2.0 [facility] Comment on above: Performed By: #### C BCDF #### [address] [address] Eosinophils (Bld) [#/Vol] 0.60 10*3/uL Normal 0.00 - 0.70 [facility] Comment on above: Performed By: #### C BCDF #### [address] [address] Eosinophils/100 WBC (Bld) 9.6 % Normal 0.0 - 6.0 [facility] Comment on above: Performed By: #### C BCDF #### [address] [address] Erythrocyte distribution width (RBC) [Ratio] 13.5 % Normal 11.5 - 14.5 [facility] Comment on above: Performed By: #### C BCDF #### [address] [address] Hematocrit (Bld) [Volume fraction] 42.0 % Normal 36.0 - 46.0 [facility] Comment on above: Performed By: #### C BCDF #### [address] [address] Hemoglobin (Bld) [Mass/Vol] 13.7 g/dL Normal 12.0 - 16.0 [facility] Comment on above: Performed By: #### C BCDF #### [address] [address] Lymphocytes (Bld) [#/Vol] 2.20 10*3/uL Normal 1.20 - 4.80 [facility] Comment on above: Performed By: #### C BCDF #### [address] [address] Lymphocytes/100 WBC (Bld) 37.0 % Normal 13.0 - 44.0 [facility] Comment on above: Performed By: #### C BCDF #### [address] [address] MCHC (RBC) [Mass/Vol] 32.5 g/dL Normal 32.0 - 36.0 [facility] Comment on above: Performed By: #### C BCDF #### [address] [address] MCV (RBC) [Entitic vol] 92 fL Normal 80 - 100 [facility] Comment on above: Performed By: #### C BCDF #### [address] [address] Monocytes (Bld) [#/Vol] 0.30 10*3/uL Normal 0.10 - 1.0 0 [facility] Comment on above: Performed By: #### C BCDF #### [address] [address] Monocytes/100 WBC (Bld) 4.8 % Normal 2.0 - 10.0 [facility] Comment on above: Performed By: #### C BCDF #### [address] [address] Neutrophils (Bld) [#/Vol] 2.80 10*3/uL Normal 1.20 - 7.70 [facility] Comment on above: Result Comment: Perc ent differential counts (%) should be interpreted in the context of the absolute cell counts (cells/L). Performed By: #### C BCDF #### [address] [address] Neutrophils/100 WBC (Bld) 47.6 % Normal 40.0 - 80.0 [facility] Comment on above: Performed By: #### C BCDF #### [address] [address] NUCLEATED RBC 0.1 /100 WBC Normal [facility] Comment on above: Performed By: #### C BCDF #### [address] [address] Platelets (Bld) [#/Vol] 272 10*3/uL Normal 150 - 450 [facility] Comment on above: Performed By: #### C BCDF #### [address] [address] RBC 4.56 x10E12/L Normal 4.00 - 5.20 [facility] Comment on above: Performed By: #### C BCDF #### [address] [address] WBC (Bld) [#/Vol] 6.0 10*3/uL Normal 4.4 - 11.3 [facility] Comment on above: Performed By: #### C BCDF #### [address] [address] HCG,SERUM QUALITATIVEon 10-26 HCG,SERUM QUALITATIVE Negative Normal Negative [facility] Comment on above: Performed By: #### H CGS #### [place] [address] HCG,URINEon 11-21-2019 Beta HCG ( test) Ql (U) Negative Normal Negative [facility] Comment on above: Performed By: #### H CGU #### [place] [address] HEPATIC FUNCTION PANELon Albumin [Mass/Vol] 4.7 g/dL Normal 3.4 - 5.0 [facility] Comment on above: Performed By: #### H CGU #### [place] [id number] ALP [Catalytic activity/Vol] 60 U/L Normal 33 - 110 [facility] Comment on above: Performed By: #### H CGU #### [address] [address] ALT [Catalytic activity/Vol] 12 U/L Normal 7 - 45 [facility] Comment on above: Result Comment: Dulce ents treated with Sulfasalazine may generate falsely decreased results for ALT. Performed By: #### H CGU #### [place] [address] AST [Catalytic activity/Vol] 19 U/L Normal 9 - 39 [facility] Comment on above: Performed By: #### H CGU #### [address] [address] Bilirubin [Mass/Vol] 0.6 mg/dL Normal 0.0 - 1.2 [facility] Comment on above: Performed By: #### H CGU #### [address] [address] Bilirubin.indirect [Mass/Vol] 0.1 mg/dL Normal 0.0 - 0.3 [facility] Comment on above: Performed By: #### H CGU #### [address] [address] Protein [Mass/Vol] 7.1 g/dL Normal 6.4 - 8.2 [facility] Comment on above: Performed By: #### H CGU #### [address] [address] LIPID PANEL (CORONARY RISK 2 )on 11-21-2019 Cholesterol [Mass/Vol] 163 mg/dL Normal 0 - 199 [facility] Comment on above: Result Comment: . [...] dosing. Performed By: #### L IPID #### [address] [address] Cholesterol in HDL [Mass/Vol] 51.0 mg/dL Normal [facility] Comment on above: Result Comment: . AGE VERY LOW LOW NORMAL HIGH 0-19 Y < 35 < 40 40-45 ---- 20-24 Y ---- < 40 >45 ---- >24 Y ---- < 40 40-60 >60 . Performed By: #### L IPID #### [address] [address] Cholesterol in LDL [Mass/Vol] 85 mg/dL Normal 0 - 109 [facility] Comment on above: Result Comment: . NEAR BORD AGE DESIRABLE OPTIMAL HIGH HIGH VERY HIGH 0-19 Y 0 - 109 --- 110-129 >/= 130 ---- 20-24 Y 0 - 119 --- 120-159 >/= 160 ---- >24 Y 0 - 99 100-129 130-159 160-189 >/=190 . Performed By: #### L IPID #### [address] [address] Cholesterol in VLDL [Mass/Vol] 27 mg/dL Normal 0 - 40 [facility] Comment on above: Performed By: #### L IPID #### [address] [address] Cholesterol.total/Heidi sterol in HDL [Mass ratio] 3.2 {ratio} Normal [facility] Comment on above: Result Comment: REF VALUES DESIRABLE < 3.4 HIGH RISK > 5.0 Performed By: #### L IPID #### [address] [address] NON-HDL CHOLESTEROL 112 mg/dL Normal 0 - 119 [facility] Comment on above: Result Comment: AGE DESIRABLE BORDERLINE HIGH HIGH VERY HIGH 0-19 Y 0 - 119 120 - 144 >/= 145 >/= 160 20-24 Y 0 - 149 150 - 189 >/= 190 ---- >24 Y 30 MG/DL ABOVE LDL CHOLESTEROL GOAL . Performed By: #### L IPID #### [address] [address] Triglyceride [Mass/Vol] 136 mg/dL Normal 0 - 149 [facility] Comment on above: Result Comment: [...] dosing. Performed By: #### L IPID #### [address] [address] HCG,URINEon 10-19-2019 Beta HCG ( test) Ql (U) Negative Normal Negative [facility] Comment on above: Performed By: #### H CGU #### [address] [address] Culture, urine Bacteria identified Cx Nom (U) G. vaginalis (Presumptive) [facility] Work Phone: Bacteria identified Cx Nom (U) Positive [facility] Work Phone: Vital Signs Date Time Vital Sign Value Performing Clinician Faci lity 11-05-2024 10:20-0400 Body mass index (BMI) [Ratio] 29.12 kg/m2 Carey Frost APRN.CNM Work Phone: [facility] 11-05-2024 10:20-0400 Body weight 79.38 kg Carey Frost APRN.CNM Work Phone: [facility] 11-05-2024 10:20-0400 Diastolic blood pressure 70 mm[Hg] Carey Frost APRN.CNM Work Phone: [facility] 11-05-2024 10:20-0400 Systolic blood pressure 112 mm[Hg] Carey Frost APRN.CNM Work Phone: [facility] 10-23-2024 10:46-0400 Body mass index (BMI) [Ratio] 28.62 kg/m2 Daija Roblero APRN.CNM Work Phone: [facility] 10-23-2024 10:46-0400 Body weight 78.02 kg Daija Roblero APRN.CNM Work Phone: [facility] 10-23-2024 10:46-0400 Diastolic blood pressure 78 mm[Hg] Daija Roblero APRN.CNM Work Phone: [facility] 10-23-2024 10:46-0400 Systolic blood pressure 116 mm[Hg] Daija Alexisjohn MANAGEMENT TRAINEE MARKETING.CNM Work Phone: [facility] 10-15-2024 10:06-0400 Body mass index (BMI) [Ratio] 28.79 kg/m2 Kamar Valdovinos MD Work Phone: [facility] 10-15-2024 10:06-0400 Body weight 78.47 kg Kamar Valdovinos MD Work Phone: [facility] 10-15-2024 10:06-0400 Diastolic blood pressure 72 mm[Hg] Kamar Valdovinos MD Work Phone: [facility] 10-15-2024 10:06-0400 Systolic blood pressure 110 mm[Hg] Kamar Valdovinos MD Work Phone: [facility] 10-02-2024 08:38-0400 Body mass index (BMI) [Ratio] 27.96 kg/m2 Mik Hamason MANAGEMENT TRAINEE MARKETING.CORE BLOWER OPERATOR Work Phone: [facility] 10-02-2024 08:38-0400 Body weight 76.2 kg Mik Haury MANAGEMENT TRAINEE MARKETING.CORE BLOWER OPERATOR Work Phone: [facility] 10-02-2024 08:38-0400 Diastolic blood pressure 60 mm[Hg] Mik Haury MANAGEMENT TRAINEE MARKETING.CORE BLOWER OPERATOR Work Phone: [facility] 10-02-2024 08:38-0400 Systolic blood pressure 110 mm[Hg] Mik Haury MANAGEMENT TRAINEE MARKETING.CORE BLOWER OPERATOR Work Phone: [facility] 09-18-2024 14:16-0400 Body mass index (BMI) [Ratio] 27.12 kg/m2 Katheirne Brunner MD Work Phone: [facility] 09-18-2024 14:16-0400 Body weight 73.94 kg Katherine Brunner MD Work Phone: [facility] 09-18-2024 14:16-0400 Diastolic blood pressure 62 mm[Hg] Katherine Brunner MD Work Phone: [facility] 09-18-2024 14:16-0400 Systolic blood pressure 108 mm[Hg] Katherine Brunner MD Work Phone: [facility] 09-04-2024 09:52-0400 Body mass index (BMI) [Ratio] 27.12 kg/m2 Daija Roblero MANAGEMENT TRAINEE MARKETING.CNM Work Phone: [facility] 09-04-2024 09:52-0400 Body weight 73.94 kg Daija Roblero MANAGEMENT TRAINEE MARKETING.CNM Work Phone: [facility] 09-04-2024 09:52-0400 Diastolic blood pressure 64 mm[Hg] Daija Roblero MANAGEMENT TRAINEE MARKETING.CNM Work Phone: [facility] 09-04-2024 09:52-0400 Systolic blood pressure 108 mm[Hg] Daija Roblero MANAGEMENT TRAINEE MARKETING.CNM Work Phone: [facility] 08-21-2024 09:14-0400 Body mass index (BMI) [Ratio] 26.96 kg/m2 Carey Frost MANAGEMENT TRAINEE MARKETING.CNM Work Phone: [facility] 08-21-2024 09:14-0400 Body weight 73.48 kg Carey Frost MANAGEMENT TRAINEE MARKETING.CNM Work Phone: [facility] 08-21-2024 09:14-0400 Diastolic blood pressure 66 mm[Hg] Carey Frost MANAGEMENT TRAINEE MARKETING.CNM Work Phone: [facility] 08-21-2024 09:14-0400 Systolic blood pressure 108 mm[Hg] Carey Frost MANAGEMENT TRAINEE MARKETING.CNM Work Phone: [facility] 07-24-2024 09:12-0400 Body mass index (BMI) [Ratio] 25.59 kg/m2 Mik Mendoza APRN.CORE BLOWER OPERATOR Work Phone: [facility] 07-24-2024 09:12-0400 Body weight 69.76 kg Mik Mendoza APRN.CORE BLOWER OPERATOR Work Phone: [facility] 07-24-2024 09:12-0400 Diastolic blood pressure 64 mm[Hg] Mik Mendoza APRN.CORE BLOWER OPERATOR Work Phone: [facility] 07-24-2024 09:12-0400 Systolic blood pressure 118 mm[Hg] Mik Mendoza APRN.CORE BLOWER OPERATOR Work Phone: [facility] 06-24-2024 10:37-0400 Body mass index (BMI) [Ratio] 24.3 kg/m2 Katherine Brunner MD Work Phone: [facility] 06-24-2024 10:37-0400 Body weight 66.22 kg Katherine Brunner MD Work Phone: [facility] 06-24-2024 10:37-0400 Diastolic blood pressure 64 mm[Hg] Katherine Brunner MD Work Phone: [facility] 06-24-2024 10:37-0400 Systolic blood pressure 112 mm[Hg] Katherine Brunner MD Work Phone: [facility] 05-14-2024 08:10-0500 Body height 165.1 cm Darnell Blank MD Work Phone: [facility] 05-14-2024 08:10-0500 Body mass index (BMI) [Ratio] 23.23 kg/m2 Darnell Blank MD Work Phone: [facility] 05-14-2024 08:10-0500 Body weight 63.32 kg Darnell Blank MD Work Phone: [facility] 05-14-2024 08:10-0500 Diastolic blood pressure 80 mm[Hg] Darnell Blank MD Work Phone: [facility] 05-14-2024 08:10-0500 Respiratory rate 18 /min Darnell Balnk MD Work Phone: [facility] 05-14-2024 08:10-0500 Systolic blood pressure 108 mm[Hg] Darnell Blank MD Work Phone: [facility] 03-28-2024 09:48-0500 Body height 166.3 cm Mik Haury MANAGEMENT TRAINEE MARKETING.CORE BLOWER OPERATOR Work Phone: [facility] 03-28-2024 09:48-0500 Body mass index (BMI) [Ratio] 21.98 kg/m2 Mik Mendoza MANAGEMENT TRAINEE MARKETING.CORE BLOWER OPERATOR Work Phone: [facility] 03-28-2024 09:48-0500 Body weight 60.78 kg Mik Mendoza MANAGEMENT TRAINEE MARKETING.CORE BLOWER OPERATOR Work Phone: [facility] 03-28-2024 09:48-0500 Diastolic blood pressure 62 mm[Hg] Mik Mendoza MANAGEMENT TRAINEE MARKETING.CORE BLOWER OPERATOR Work Phone: [facility] 03-28-2024 09:48-0500 Systolic blood pressure 104 mm[Hg] Mik Mendoza MANAGEMENT TRAINEE MARKETING.CORE BLOWER OPERATOR Work Phone: [facility] 04-15-2022 07:33-0500 Body temperature 97.9 [degF] Gia Mclaughlin MD Work Phone: [facility] 04-15-2022 07:33-0500 Diastolic blood pressure 87 mm[Hg] Gia Mclaughlin MD Work Phone: [facility] 04-15-2022 07:33-0500 Heart rate 79 /min Gia Mclaughlin MD Work Phone: [facility] 04-15-2022 07:33-0500 Respiratory rate 16 /min Gia Mclaughlin MD Work Phone: [facility] 04-15-2022 07:33-0500 SaO2% (BldA) [Mass fraction] 99 % Gia Mclaughlin MD Work Phone: [facility] [employer] 04-15-2022 07:33-0500 Systolic blood pressure 134 mm[Hg] Gia Mclaughlin MD Work Phone: [facility] [employer] 04-15-2022 06:00-0500 Body mass index (BMI) [Ratio] 28.86 kg/m2 Gia Mclaughlin MD Work Phone: [facility] [employer] 04-15-2022 06:00-0500 Body weight 73.9 kg Gia Mclaughlin MD Work Phone: [facility] 04-12-2022 15:23-0500 Body height 160 cm Gia Mclaughlin MD Work Phone: [facility] 04-12-2022 13:57-0500 Body temperature 97.9 [degF] [facility] 04-12-2022 13:57-0500 Diastolic blood pressure 91 mm[Hg] [facility] 04-12-2022 13:57-0500 Heart rate 79 /min [facility] 04-12-2022 13:57-0500 Respiratory rate 16 /min [facility] 04-12-2022 13:57-0500 SaO2% (BldA) [Mass fraction] 98 % [facility] 04-12-2022 13:57-0500 Systolic blood pressure 130 mm[Hg] [facility] 04-12-2022 09:51-0500 Body height 160.02 cm [facility] 04-12-2022 09:51-0500 Body mass index (BMI) [Ratio] 29.4 kg/m2 [facility] 04-12-2022 09:51-0500 Body weight 75.29 kg [facility] 10-19-2021 21:59-0400 Body height 160.02 cm [facility] Work Phone: 10-19-2021 21:59-0400 Body mass index (BMI) [Ratio] 22.1 kg/m2 [facility] Work Phone: 10-19-2021 21:59-0400 Body temperature 98.5 [degF] [facility] Work Phone: 10-19-2021 21:59-0400 Body weight 56.69 kg [facility] Work Phone: 10-19-2021 21:59-0400 Diastolic blood pressure 82 mm[Hg] [facility] Work Phone: 10-19-2021 21:59-0400 Heart rate 85 /min [facility] Work Phone: 10-19-2021 21:59-0400 Respiratory rate 16 /min [facility] Work Phone: 10-19-2021 21:59-0400 SaO2% (BldA) [Mass fraction] 100 % [facility] Work Phone: 10-19-2021 21:59-0400 Systolic blood pressure 125 mm[Hg] [facility] Work Phone: 05-27-2021 09:00-0500 Body height 160.02 cm Yoli Moreland Work Phone: [facility] SERVICESInd[facility] Work Phone: 05-27-2021 09:00-0500 Body mass index (BMI) [Ratio] 20.55 kg/m2 Yoli Moreland Work Phone: [employer] [facility] Work Phone: 05-27-2021 09:00-0500 Body surface area Derived from formula 1.53 m2 Yoli Moreland Work Phone: [employer] [facility] Work Phone: 05-27-2021 09:00-0500 Body weight 52.62 kg Yoli Moreland Work Phone: [facility] SERVICESInd[facility] Work Phone: 05-27-2021 09:00-0500 Diastolic blood pressure 68 mm[Hg] Yoli Moreland Work Phone: [facility] pro[facility] Work Phone: 05-27-2021 09:00-0500 Heart rate 61 /min Yoli Moreland Work Phone: [employer] [facility] Work Phone: 05-27-2021 09:00-0500 SaO2% (BldA) [Mass fraction] 95 % Yoli Moreland Work Phone: [facility] Work Phone: 05-27-2021 09:00-0500 Systolic blood pressure 110 mm[Hg] Yoli Moreland Work Phone: [facility] Work Phone: 04-28-2021 08:04-0500 Body height 160.02 cm Yoli Moreland Work Phone: [facility] Work Phone: 04-28-2021 08:04-0500 Body mass index (BMI) [Ratio] 20.9 kg/m2 Yoli Moreland Work Phone: [facility] Work Phone: 04-28-2021 08:04-0500 Body surface area Derived from formula 1.55 m2 Yoli Moreland Work Phone: [facility] Work Phone: 04-28-2021 08:04-0500 Body temperature 97.8 [degF] Yoli Moreland Work Phone: [facility] Work Phone: 04-28-2021 08:04-0500 Body weight 53.52 kg Yoli Moreland Work Phone: [facility] Work Phone: 04-28-2021 08:04-0500 Diastolic blood pressure 76 mm[Hg] Yoli Moreland Work Phone: [facility] Work Phone: 04-28-2021 08:04-0500 Systolic blood pressure 110 mm[Hg] Yoli Moreland Work Phone: [facility] Work Phone: 03-12-2021 08:19-0500 Body height 160.02 cm Yoli Moreland Work Phone: [facility] Work Phone: 03-12-2021 08:19-0500 Body mass index (BMI) [Ratio] 21.83 kg/m2 Yoli Moreland Work Phone: [facility] Work Phone: 03-12-2021 08:19-0500 Body surface area Derived from formula 1.57 m2 Yoli Moreland Work Phone: [facility] Work Phone: 03-12-2021 08:19-0500 Body temperature 97.7 [degF] Yoli Moreland Work Phone: [facility] Work Phone: 03-12-2021 08:19-0500 Body weight 55.91 kg Yoli Moreland Work Phone: [facility] Work Phone: 03-12-2021 08:19-0500 Diastolic blood pressure 70 mm[Hg] Yoli Moreland Work Phone: [facility] Work Phone: 03-12-2021 08:19-0500 Heart rate 78 /min Yoli Moreland Work Phone: [facility] Work Phone: 03-12-2021 08:19-0500 SaO2% (BldA) [Mass fraction] 98 % Yoli Moreland Work Phone: [facility] Work Phone: 03-12-2021 08:19-0500 Systolic blood pressure 118 mm[Hg] Yoli Moreland Work Phone: [facility] Work Phone: 02-25-2021 08:51-0500 Body height 160.02 cm Yoli Moreland Work Phone: [facility] Work Phone: 02-25-2021 08:51-0500 Body mass index (BMI) [Ratio] 21.83 kg/m2 Yoli Moreland Work Phone: [facility] Work Phone: 02-25-2021 08:51-0500 Body surface area Derived from formula 1.57 m2 Yoli Moreland Work Phone: [facility] Work Phone: 02-25-2021 08:51-0500 Body temperature 98.2 [degF] Yoli Moreland Work Phone: [facility] Work Phone: 02-25-2021 08:51-0500 Body weight 55.91 kg Yoli Moreland Work Phone: [facility] Work Phone: 02-25-2021 08:51-0500 Diastolic blood pressure 72 mm[Hg] Yoli Moreland Work Phone: [facility] Work Phone: 02-25-2021 08:51-0500 Heart rate 102 /min Yoli Moreland Work Phone: [facility] Work Phone: 02-25-2021 08:51-0500 SaO2% (BldA) [Mass fraction] 98 % Yoli Moreland Work Phone: [facility] Work Phone: 02-25-2021 08:51-0500 Systolic blood pressure 122 mm[Hg] Yoli Moreland Work Phone: [facility] Work Phone: Encounters Encounter Date Encounter Type Care Provider Facility Start: 11-05-2024 End: 11-05-2024 Patient encounter procedure Carey Santosh [facility] Work Phone: OB/Gynecology Comment on above: Supervision of high risk in third trimester (HCC) (Primary Dx); 39 weeks gestation of (HCC); History of section; Desires (vaginal after ) trial (HCC); History of delivery, currently (HCC); Anemia complicating , third trimester (HCC); History of pre-eclampsia Start: 10-30-2024 End: 10-30-2024 ambulatory HODAN LUONG Facility:[facility] Start: 10-28-2024 End: 10-28-2024 ambulatory [facility] Start: 10-28-2024 End: 10-28-2024 Patient encounter procedure [facility] Comment on above: Population Health Na vigation Outreach (Ob/peds) Start: 10-23-2024 End: 10-23-2024 Patient encounter procedure Daija Reubenjohn [facility] Work Phone: OB/Gynecology Comment on above: 37 weeks gestation o f (HCC) (Primary Dx); Supervision of high risk in third trimester (HCC); History of section Start: 10-23-2024 End: 10-23-2024 ambulatory HODAN LUONG Facility:[facility] Start: 10-15-2024 End: 10-15-2024 ambulatory HODAN LUONG Facility:[facility] Start: 10-15-2024 End: 10-15-2024 Patient encounter procedure [employer] Faculty Member [employer] Maternal Medicine Comment on above: Supervision of high risk in third trimester ([facility]); 28 weeks gestation of (HCC); History of [...] trimester (HCC) Start: 10-02-2024 End: 10-02-2024 ambulatory [facility] Facility:[facility] Start: 09-18-2024 End: 09-18-2024 Patient encounter procedure [...] of pre-eclampsia Start: 09-18-2024 End: 09-18-2024 ambulatory [facility] Facility:[facility] Start: 09-04-2024 End: 09-04-2024 Patient encounter procedure Daija Roblero APRN.CNM Work Phone: OB/Gynecology Comment on above: Supervision of high risk in third trimester (HCC) (Primary Dx); History of delivery, currently (HCC); History of pre-eclampsia; History of section; Desires (vaginal after ) trial (HCC); 30 weeks gestation of (HCC); Anemia complicating , third trimester (HCC) Start: 09-04-2024 End: 09-04-2024 ambulatory HODAN LUONG Facility:[facility] Start: 08-21-2024 End: 10-21-2024 Follow-up encounter Mik [...] Start: 08-21-2024 End: 08-21-2024 ambulatory HODAN LUONG Facility:[facility] Start: 07-24-2024 End: 07-24-2024 ambulatory HODAN LUONG Facility:[facility] Start: 07-24-2024 End: 07-24-2024 Patient encounter procedure [...] Start: 06-24-2024 End: 06-24-2024 ambulatory HODAN LUONG Facility:[facility] Start: 06-24-2024 End: 06-24-2024 Patient encounter procedure [employer] Faculty Member [employer] [facility] [facility]aternal [facility] Comment on above: Encounter for anatomic survey (Primary Dx); 20 weeks gestation of Start: 05-20-2024 End: 05-20-2024 Telephone encounter Mik Mendoza APRN.CORE BLOWER OPERATOR Work Phone: OB/Gynecology Comment on above: Question (OB Questio n) Start: 05-14-2024 End: 07-14-2024 Follow-up encounter Collette Cisneros MD Work Phone: OB/Gynecology Start: 05-14-2024 End: 05-14-2024 ambulatory MIK MENDOZA Facility:[facility] Start: 05-14-2024 End: 05-14-2024 ambulatory HODAN LUONG Facility:[facility] Start: 05-14-2024 End: 05-14-2024 Patient encounter procedure [...] Start: 03-28-2024 End: 03-28-2024 ambulatory HODAN LUONG Facility:[facility] Start: 03-28-2024 End: 03-28-2024 Patient encounter procedure Mik Mendoza APRN.CORE BLOWER OPERATOR Work Phone: OB/Gynecology Comment on above: Encounter [...] Start: 01-10-2024 End: 01-10-2024 ambulatory Bibiana WALDRON Facility:[facility] Start: 12-19-2023 End: 12-26-2023 Telephone encounter Darnell Blank MD Work Phone: OB/Gynecology Comment on above: Appointment Start: 08-24-2022 End: 08-24-2022 ambulatory [facility] Work Phone: Start: 08-24-2022 End: 08-24-2022 Patient encounter procedure [facility], [place] information technology intern Off Start: 05-24-2022 End: 05-24-2022 ambulatory [facility] Work Phone: Start: 05-24-2022 End: 05-24-2022 Patient encounter procedure [facility], [place] information technology intern Off Start: 04-12-2022 End: 04-12-2022 ambulatory GIA MCLAUGHLIN [facility] Start: 04-12-2022 End: 04-15-2022 Evaluation and management of inpatient GIA [facility] Start: 04-12-2022 End: 04-15-2022 Evaluation and management of inpatient Gia Mclaughlin MD Work Phone: [facility] Comment on above: S/P (Prima ry Dx); Preeclampsia, severe, third trimester Start: 04-12-2022 End: 04-12-2022 ambulatory [facility] Work Phone: Start: 04-12-2022 End: 04-12-2022 Patient encounter procedure [facility], Outpatients Start: 03-29-2022 End: 03-29-2022 ambulatory [facility] Work Phone: Start: 03-29-2022 End: 03-29-2022 Patient encounter procedure [facility], [place] information technology intern Off Start: 01-05-2022 End: 01-05-2022 Patient encounter procedure [facility], Specimen Start: 11-04-2021 End: 11-04-2021 Patient encounter procedure [facility], OP Pavilion Start: 10-21-2021 End: 10-21-2021 Patient encounter procedure [facility], [place] information technology intern Off Start: 10-19-2021 End: 10-20-2021 Emergency department patient visit [facility]Emergency Department Start: 05-27-2021 Office outpatient vi sit 15 minutes Yoli Moreland Work Phone: [facility] Work Phone: Start: 04-28-2021 Office outpatient vi sit 15 minutes Yoli Moreland Work Phone: [facility] Work Phone: Start: 04-28-2021 Patient encounter procedure Yoli Moreland Work Phone: [facility] Work Phone: Start: 03-12-2021 Office outpatient vi sit 15 minutes Yoli Moreland Work Phone: [facility] Work Phone: Start: 03-05-2021 Chart Update Yoli sánchez Work Phone: [facility] 205 DO Work Phone: Start: 02-25-2021 Office outpatient ne w 30 minutes Yoli Moreland Work Phone: [facility] Work Phone: Procedures Date Procedure Procedure Detail [...] after 1st trimest 03/27 gestation Mik Mendoza JANICE.CORE BLOWER OPERATOR Work Phone: Start: 05-14-2024 Antibody screen HODAN LUONG Comment on above: Order Comment: Speci men Type: BLOOD SPECIMENOrdering Facility: [facility] Address: [address] [place] [address] Performed By: #### T SPN ####CC MAIN BLOOD BANKCLIA [id number] [address] STATES [facility] Start: 05-14-2024 Us nuchal translucency 1st gestation Mik Mendoza JANICE.CORE BLOWER OPERATOR Work Phone: Start: 03-28-2024 H/O: section History of section Mik Brownmason CAMACHO.[employer] BLOWER OPERATOR Work Phone: Start: 03-28-2024 Us uterus l imited fetuses Mik Mendoza JANICE.CORE BLOWER OPERATOR Work Phone: Start: 04-14-2022 Comprehensive metabo lic [...] Zuleyma Huston DO Work Phone: Start: 11-04-2021 [facility] FACT OR, EXTERNAL RESULT Zuleyma Huston DO Work Phone: Start: 10-19-2021 Transvaginal obstetr ic ultrasonography section Anhtuan T H uynh DO Work Phone: H/O: section S/P Gia Mclaughlin MD Work Phone: H/O: section History of section Darnell Blank MD Work Phone: H/O: section History of section Katherine Brunner MD Work Phone: H/O: section History of section Mik Mendoza APRN.CORE BLOWER OPERATOR Work Phone: H/O: section History of section Carey Frost MANAGEMENT TRAINEE MARKETING.CNM Work Phone: H/O: section History of section Daija Roblero MANAGEMENT TRAINEE MARKETING.CNM Work Phone: H/O: section History of section Katherine Brunner MD Work Phone: H/O: section History of section Mik Mendoza APRN.CORE BLOWER OPERATOR Work Phone: H/O: section History of section [...] RSV Vaccine (1 - 1-dose 75+ series) [facility] Start: 2050 Zoster Vaccines (1 o f 2) Zoster Vaccines (1 of 2) [facility] Start: 03-28-2025 GC (Gonorrhea) Screening (18-24) GC (Gonorrhea) Screening (18-24) [facility] Start: 03-28-2025 Screening for Chlamy leandro trachomatis Chlamydia Screening () [facility] Start: 03-28-2025 Screening for malign ant neoplasm of cervix Cervical Cancer Screening [facility] Start: 11-25-2024 Influenza vaccination [facility] Start: 11-11-2024 End: 11-11-2024 Patient encounter procedure 11/11/2024 10:50 AM EDT Routine Office Visit OB/Gynecology [address] [place] [address] Collette Cisneros MD [address] [place] [address] OB OB/Gynecology Comment on above: OB Start: 11-05-2024 End: 11-05-2024 Patient encounter procedure 11/05/2024 10:30 AM EDT Routine Office Visit OB/Gynecology [address] [place] [address] Carey Frost APRN.CNM [address] [place] [address] OB OB/Gynecology Comment on above: OB Start: 10-30-2024 End: 10-30-2024 Patient encounter procedure 10/30/2024 10:20 AM EDT Routine Office Visit OB/Gynecology [address] [place] [address] Katherine Brunner MD [address] [place] [address] (Fax) OB OB/Gynecology Comment on above: OB Start: 10-23-2024 End: 10-23-2024 Patient encounter procedure 10/23/2024 10:45 AM EDT Routine Office Visit OB/Gynecology [address] [place] [address] Daija Roblero APRN.CN [address] [place] [address] (Fax) OB OB/Gynecology Comment on above: OB Start: 10-22-2024 End: 10-22-2024 Patient encounter procedure 10/22/2024 10:30 AM EDT Routine Office Visit OB/Gynecology [address] [place] [address] Katherine Brunner MD [address] [place] [address] (Fax) OB OB/Gynecology Comment on above: OB Start: 10-15-2024 End: 10-15-2024 Patient encounter procedure Maternal Medicine Comment on above: Growth Growth/OB Start: 10-02-2024 End: 10-02-2024 Patient encounter procedure 10/02/2024 8:30 AM EDT Routine Office Visit OB/Gynecology [address] [place] [address] Collette Cisneros MD [address] [place] [address] (Fax) OB OB/Gynecology Comment on above: OB Start: 09-18-2024 End: 09-18-2024 Patient encounter procedure Maternal Medicine Comment on above: Growth OB Start: 09-04-2024 End: 12-04-2024 CBC panel - Blood by Automated count COMPLETE BLOOD COUNT Lab Routine Anemia complicating , third trimester (HCC) Expected: 09/04/2024, Expires: 12/04/2024 [facility] Work Phone: Comment on above: Expected: 09/04/2024 , Expires: 12/04/2024 Start: 09-04-2024 End: 09-04-2024 Patient encounter procedure 09/04/2024 9:45 AM EDT Routine Office Visit OB/Gynecology [address] [place] [address] Daija Roblero APRN.CNM [address] [place] [address] OB OB/Gynecology Comment on above: OB Start: 08-21-2024 End: 08-21-2024 Patient encounter procedure 08/21/2024 9:15 AM EDT Routine Office Visit OB/Gynecology [address] [place] [address] Carey Frost APRN.CNM [address] [place] [address] OB Routine OB/Gynecology Comment on above: OB Routine Start: 08-21-2024 End: 08-21-2024 ambulatory 08/21/2024 9:00 AM EDT Results Only [place] [facility] Laboratory [address] [place] [address] Glucose Test and Labs [facility] Comment on above: Glucose Test and Lab s Start: 07-24-2024 End: 10-23-2024 CBC panel - Blood by Automated count COMPLETE BLOOD COUNT Lab Routine Supervision of high risk in second trimester (HCC) 24 weeks gestation of (HCC) Expected: 07/24/2024, Expires: 10/23/2024 [facility] Comment on above: Expected: 07/24/2024 , Expires: 10/23/2024 Start: 07-24-2024 End: 10-23-2024 GESTATIONAL GLUCOSE SCREEN, 1-HOUR, 50 GRAM, NON-FASTING GESTATIONAL GLUCOSE SCREEN, 1-HOUR, 50 GRAM, NON-FASTING Lab Routine Supervision of high risk in second trimester (HCC) 24 weeks gestation of (HCC) Expected: 07/24/2024, Expires: 10/23/2024 [facility] Work Phone: Comment on above: Expected: 07/24/2024 , Expires: 10/23/2024 Start: 07-24-2024 End: 10-23-2024 SYPHILIS TREPONEMAL W/REFLEX SYPHILIS TREPONEMAL W/REFLEX Lab Routine Supervision of high risk in second trimester (HCC) 24 weeks gestation of (HCC) Expected: 07/24/2024, Expires: 10/23/2024 [facility] Comment on above: Expected: 07/24/2024 , Expires: 10/23/2024 Start: 07-24-2024 End: 07-24-2024 Patient encounter procedure 07/24/2024 8:00 AM EDT Routine Office Visit OB/Gynecology [address] [place] [address] Daija Roblero APRN.CN [address] [place] [address] OB OB/Gynecology Comment on above: OB Start: 06-24-2024 End: 06-24-2024 Patient encounter procedure Maternal Medicine Comment on above: Anatomy Anatomy/OB Start: 05-14-2024 End: 08-13-2024 Chromosome 21 trisomy [Presence] in Blood or Tissue by Cytogenetics [facility] Work Phone: Comment on above: Expected: 05/14/2024 , Expires: 08/13/2024 Start: 05-14-2024 End: 05-14-2024 Patient encounter procedure Maternal Medicine Comment on above: Nuchal Nuchal/Consult to ZECHARIAH Stallings OB Start: 04-25-2024 End: 04-25-2024 Patient encounter procedure 04/25/2024 10:20 AM EST Routine Office Visit OB/Gynecology [address] [place] [address] Deb Simmons MD [address] [place] [address] -last menstural period 02/04/24 OB/Gynecology Comment on above: -last menst ural period 02/04/24 Start: 03-28-2024 End: 06-27-2024 ANEMIA REFLEX PANEL ANEMIA REFLEX PANEL Lab Routine 7 weeks gestation of Expected: 03/28/2024, Expires: 06/27/2024 [facility] Work Phone: Comment on above: Expected: 03/28/2024 , Expires: 06/27/2024 Start: 03-28-2024 End: 06-27-2024 Comprehensive metabolic 2000 panel - Serum or Plasma COMPREHENSIVE METABOLIC PANEL Lab Routine History of pre-eclampsia Expected: 03/28/2024, Expires: 06/27/2024 [facility] Comment on above: Expected: 03/28/2024 , Expires: 06/27/2024 Start: 03-28-2024 End: 06-27-2024 Hemoglobin A1c in Blood HEMOGLOBIN A1C Lab Routine 7 weeks gestation of Expected: 03/28/2024, Expires: 06/27/2024 [facility] Comment on above: Expected: 03/28/2024 , Expires: 06/27/2024 Start: 03-28-2024 End: 06-27-2024 Hepatitis B virus surface Ag [Presence] in Serum HEPATITIS B SURFACE ANTIGEN Lab Routine 7 weeks gestation of Expected: 03/28/2024, Expires: 06/27/2024 [facility] Comment on above: Expected: 03/28/2024 , Expires: 06/27/2024 Start: 03-28-2024 End: 06-27-2024 Hepatitis C virus Ab [Presence] in Serum HEPATITIS C ANTIBODY IA WITH CONFIRMATION Lab Routine 7 weeks gestation of Expected: 03/28/2024, Expires: 06/27/2024 [facility] Comment on above: Expected: 03/28/2024 , Expires: 06/27/2024 Start: 03-28-2024 End: 06-27-2024 HIV 1+2 Ab [Presence] in Serum or Plasma by Immunoassay HIV 1/2 COMBO WITH REFLEX TO DIFFERENTIATION Lab Routine 7 weeks gestation of Expected: 03/28/2024, Expires: 06/27/2024 [facility] Comment on above: Expected: 03/28/2024 , Expires: 06/27/2024 Start: 03-28-2024 End: 03-28-2025 NUCHAL TRANSLUCENCY WHI NUCHAL TRANSLUCENCY WHI Anc Imaging Routine 7 weeks gestation of Expected: 03/28/2024, Expires: 03/28/2025 [facility] Comment on above: Expected: 03/28/2024 , Expires: 03/28/2025 Start: 03-28-2024 End: 03-28-2025 OBSTETRIC ULTRASOUND WHI OBSTETRIC ULTRASOUND WHI Anc Imaging Routine 7 weeks gestation of Expected: 03/28/2024, Expires: 03/28/2025 [facility] Comment on above: Expected: 03/28/2024 , Expires: 03/28/2025 Start: 03-28-2024 End: 06-27-2024 Protein/Creatinine [Mass Ratio] in Urine PROTEIN / CREATININE RATIO Lab Routine History of pre-eclampsia Expected: 03/28/2024, Expires: 06/27/2024 [facility] Comment on above: Expected: 03/28/2024 , Expires: 06/27/2024 Start: 03-28-2024 End: 06-27-2024 RUBELLA IGG ANTIBODY RUBELLA IGG ANTIBODY Lab Routine 7 weeks gestation of Expected: 03/28/2024, Expires: 06/27/2024 [facility] Comment on above: Expected: 03/28/2024 , Expires: 06/27/2024 Start: 03-28-2024 End: 06-27-2024 SYPHILIS TREPONEMAL W/REFLEX SYPHILIS TREPONEMAL W/REFLEX Lab Routine 7 weeks gestation of Expected: 03/28/2024, Expires: 06/27/2024 [facility] Comment on above: Expected: 03/28/2024 , Expires: 06/27/2024 Start: 03-28-2024 End: 06-27-2024 Thyrotropin [Units/volume] in Serum or Plasma THYROID STIMULATING HORMONE Lab Routine History of pre-eclampsia Expected: 03/28/2024, Expires: 06/27/2024 [facility] Comment on above: Expected: 03/28/2024 , Expires: 06/27/2024 Start: 03-28-2024 End: 06-27-2024 TYPE + SCREEN TYPE + SCREEN Blood Bank Routine 7 weeks gestation of Expected: 03/28/2024, Expires: 06/27/2024 [facility] Comment on above: Expected: 03/28/2024 , Expires: 06/27/2024 Start: 03-28-2024 End: 03-28-2024 Patient encounter procedure 03/28/2024 9:30 AM EST Initial Office Visit OB/Gynecology [address] [place] [id number] Mik Mendoza APRN.CORE BLOWER OPERATOR [address] [place] [address] -last menstural period 02/04/24 OB/Gynecology Comment on above: -last menst ural period 02/04/24 Start: 02-26-2024 End: 02-26-2024 Patient encounter procedure 02/26/2024 9:40 AM EST Office Visit OB/Gynecology [address] [place] [address] Deb Simmons MD [address] [place] [address] Preconceptual counseling- history of preeclampsia. Will get C Section op report sent from [facility] OB/Gynecology Comment on above: Preconceptual counse ling- history of preeclampsia. Will get C Section op report sent from [facility] Start: 11-26-2023 Covid-19 Vaccine () Covid-19 Vaccine () [facility] Start: 11-26-2023 Influenza vaccination Influenza Vacc ine (#1) [facility] Start: 01-05-2023 Screening for Chlamy leandro trachomatis Chlamydia and Gonorrhea Screening [facility] Start: 04-12-2022 Therapeutic injectio n iv push each new drug TX/PRO/DX INJ NEW DRUG [facility] Start: 04-12-2022 Fluid restriction [facility] Start: 04-12-2022 [facility] Start: 04-12-2022 End: 04-12-2022 Fluid restriction [facility] Start: 04-12-2022 End: 04-12-2022 [facility] Start: 04-12-2022 Nonstress test [facility] Start: 04-12-2022 Obstetric monitoring [facility] Start: 04-12-2022 Vital signs measurements [facility] Start: 11-25-2021 Influenza vaccination Influenza Vacc ine (#1) [facility] Start: 10-20-2021 [facility] Work Phone: Start: 07-01-2021 EPV, Provider: Yoli Moreland, Status: Pen, Time: 9:00 AM EPV, Provider: Yoli Moreland, Status: Pen, Time: 9:00 AM [facility] Work [facility]: Start: 05-27-2021 EPV, Provider: Yoli Moreland, Status: Pen, Time: 9:00 AM EPV, Provider: Yoli Moreland, Status: Pen, Time: 9:00 AM [facility] Start: 2021 Screening for malign ant neoplasm of cervix [facility] Start: 04-01-2021 FUV, Provider: Yoli Moreland, Status: Pen, Time: 10:40 AM FUV, Provider: Yoli Moreland, Status: Pen, Time: 10:40 AM [facility] Start: 03-11-2021 EPV, Provider: Yoli Moreland, Status: Pen, Time: 8:40 AM [facility] Work [facility]: Start: 2019 DTaP/Tdap/Td Vaccine s (1 - Tdap) DTaP/Tdap/Td Vaccines (1 - Tdap) [facility] Start: 2019 Hepatitis B Vaccine (1 of 3 - 19+ 3-dose series) Hepatitis B Vaccine (1 of 3 - 19+ 3-dose series) [facility] Start: 2019 Urine microalbumin profile DTaP,Tdap,Td Vaccine (1 - Tdap) [facility] Start: 2018 Anxiety Screening Anxiety Screening [facility] Start: 2018 Depression Screening Depression Scre ening [facility] Start: 2018 GC (Gonorrhea) Screening () GC (Gonorrhea) Screening (18-24) [facility] Start: 2018 Hepatitis C screening Hepatitis C Sc reening [facility] Start: 2018 HIV screening HIV Screening [facility] Start: 2018 Screening for Chlamy leandro trachomatis Chlamydia Screening () [facility] Start: 2016 Meningococcal B Vacc ine (1 of 2 - Standard) Meningococcal B Vaccine (1 of 2 - Standard) [facility] Start: 2016 Meningococcal B Vaccine: Consider Based On Risk (1 of 2 - Patient Seeks Protection) Meningococcal B Vaccine: Consider Based On Risk (1 of 2 - Patient Seeks Protection) [facility] Start: 2015 HPV Vaccine (1 - 3-d ose series) HPV Vaccine (1 - 3-dose series) [facility] Start: 2014 Peds To Adult Transition Annual Assessment Peds To Adult Transition Annual Assessment [facility] Start: 2012 Peds To Adult Transition Initial Discussion Peds To Adult Transition Initial Discussion [facility] Start: 2011 HPV Vaccines (1 - 2-dose series) HPV Vaccines (1 - 2-dose series) [facility] Start: 2001 MMR Vaccines (1 of 1 - Standard series) MMR Vaccines (1 of 1 - Standard series) [facility] Start: 2001 Varicella vaccination Varicell a Vaccines (1 of 2 - 2-dose childhood series) [facility] Start: 2000 COVID-19 Vaccine (#1) COVID-19 Vacci ne (#1) [facility] Start: 2000 Hepatitis B Vaccines (1 of 3 - 3-dose series) Hepatitis B Vaccines (1 of 3 - 3-dose series) [facility] Start: 2000 Lipid panel Lipid Panel [facility] Bacteria identified in Urine by Culture URINE CULTURE Microbiology Routine 7 weeks gestation of 03/28/2024 10:27 AM [facility] Chlamydia trachomatis+Neisseria gonorrhoeae DNA [Presence] in Unspecified specimen by ÁNGEL with probe detection GONORRHEA/CHLAMYDIA NAAT Lab Routine 7 weeks gestation of 03/28/2024 10:27 AM [facility] End: 08-05-2025 OBSTETRIC ULTRASOUND WHI OBSTETRIC ULTRASOUND WHI Anc Imaging Routine Supervision of high risk in third trimester ([facility]) 28 weeks gestation of ([facility]) History of delivery, currently ([facility]) History of pre-eclampsia Once per month for 3 Occurrences starting 08/21/2024 until 08/05/2025 [facility] Work Phone: Comment on above: Once per month for 3 Occurrences starting 08/21/2024 until 08/05/2025 PAP TEST PAP TEST Lab Abhijit de paze 7 weeks gestation of 03/28/2024 10:27 AM [facility] Patient Education ED Possible Mi scarriage ... [facility] Work Phone: Patient referral [facility] Work Phone: ROUTINE, GR OUP B STREPTOCOCCUS BY PCR ROUTINE, GROUP B STREPTOCOCCUS BY PCR Microbiology Routine Supervision of high risk in third trimester ([facility]) 10/15/2024 10:25 AM EDT [facility] Work Phone: End: 04-12-2022 Tissue exam Tissue exam Pathology and Cytology Routine Once (Lab) for 1 Occurrences starting 04/12/2022 until 04/12/2022 [facility] Work Phone: Comment on above: Once (Lab) for 1 Occ urrences starting 04/12/2022 until 04/12/2022 URINE OB DIP B/O URINE OB DIP B/ O Lab Routine Supervision of high risk in third trimester ([facility]) Desires (vaginal after ) trial ([facility]) History of section History of delivery, currently ([facility]) History of pre-eclampsia Anemia complicating , third trimester ([facility]) Ordered: 10/02/2024 [facility] Work Phone: Comment on above: Ordered: 10/02/2024 URINE OB DIP B/O URINE OB DIP B/ O Lab Routine 37 weeks gestation of ([facility]) Supervision of high risk in third trimester ([facility]) History of section Ordered: 10/23/2024 [facility] Work Phone: Comment on above: Ordered: 10/23/2024 URINE OB DIP B/O URINE OB DIP B/ O Lab Routine Supervision of high risk in third trimester ([facility]) History of section Desires (vaginal after ) trial ([facility]) History of delivery, currently ([facility]) Anemia complicating , third trimester ([facility]) History of pre-eclampsia 39 weeks gestation of ([facility]) Ordered: 11/05/2024 [facility] Work Phone: Comment on above: Ordered: 11/05/2024 End: 04-12-2022 US biophysical profile wo non stress testing [facility] Comment on above: Once for 1 Occurrenc es starting 04/12/2022 until 04/12/2022 End: 04-12-2022 US for [facility] Comment on above: Once for 1 Occurrenc es starting 04/12/2022 until 04/12/2022 End: 04-12-2022 US.doppler Umbilical artery [facility] Work Phone: Comment on above: Once for 1 Occurrenc es starting 04/12/2022 until 04/12/2022 Immunizations Immunization Date Immunization Notes Care Provider Lv montero 11-15-2017 Human Papillomavirus 9-valent vaccine Yoli Moreland Work Phone: [facility] Work Phone: 11-15-2017 meningococcal B vacc ine, fully recombinant Yoli Moreland Work Phone: [facility] Work Phone: 11-15-2017 meningococcal polysaccharide (groups A, C, Y and W-135) diphtheria toxoid conjugate vaccine (MCV4P) Yoli Moreland Work Phone: [facility] Work Phone: 10-03-2016 meningococcal B vacc ine, fully recombinant [facility] Work Phone: 03-02-2016 Human Papillomavirus 9-valent vaccine [facility] Work Phone: [facility] Work Phone: 07-09-2015 Human Papillomavirus 9-valent vaccine [facility] Work Phone: [facility] Work Phone: 01-16-2013 influenza virus vacc ine, live, attenuated, for intranasal use [facility] Work Phone: [facility] Work Phone: 09-14-2005 diphtheria, tetanus toxoids and acellular pertussis vaccine, unspecified formulation [facility] Work Phone: [facility] Work Phone: 09-14-2005 measles, mumps and rubella virus vaccine [facility] Work Phone: [facility] Work Phone: 09-14-2005 poliovirus vaccine, inactivated [facility] Work Phone: [facility] Work Phone: 07-11-2002 diphtheria, tetanus toxoids and acellular pertussis vaccine, unspecified formulation [facility] Work Phone: [facility] Work Phone: 07-11-2002 haemophilus influenz ae type b vaccine, conjugate unspecified formulation [facility] Work Phone: [facility] Work Phone: 07-11-2002 poliovirus vaccine, inactivated Yoli Moreland Work Phone: [facility] Work Phone: 07-11-2002 varicella virus vaccine [facility] Work Phone: [facility] Work Phone: 09-24-2001 measles, mumps and rubella virus vaccine [facility] Work Phone: [facility] Work Phone: 05-21-2001 haemophilus influenz ae type b conjugate and Hepatitis B vaccine [facility] Work Phone: [facility] Work Phone: 2000 diphtheria, tetanus toxoids and acellular pertussis vaccine, unspecified formulation [facility] Work Phone: [facility] Work Phone: 2000 diphtheria, tetanus toxoids and acellular pertussis vaccine, unspecified formulation [facility] Work Phone: [facility] Work Phone: 2000 haemophilus influenz ae type b conjugate and Hepatitis B vaccine [facility] Work Phone: [facility] Work Phone: 2000 poliovirus vaccine, inactivated [facility] Work Phone: [facility] Work Phone: 2000 pneumococcal conjuga te vaccine, 7 valent [facility] Work Phone: [facility] Work Phone: 2000 diphtheria, tetanus toxoids and acellular pertussis vaccine, unspecified formulation [facility] Work Phone: [facility] Work Phone: 2000 haemophilus influenz ae type b conjugate and Hepatitis B vaccine [facility] Work Phone: [facility] Work Phone: 2000 pneumococcal conjuga te vaccine, 7 valent Yoli Navarro [facility] Work Phone: [facility] Work Phone: 2000 poliovirus vaccine, inactivated [facility] Work Phone: [facility] Work Phone: NEGATED: Highlighted row has not occurred!04-15-2022 measles, mumps and rubella virus vaccine Gia Mclaughlin MD Work Phone: [facility] Comment on above: Deferred: Contraindi cation NEGATED: Highlighted row has not occurred!04-15-2022 tetanus toxoid, reduced diphtheria toxoid, and acellular pertussis vaccine, adsorbed Gia Mclaughlin MD Work Phone: [employer] Comment on above: Deferred: No longer needed Payers Date Payer Category Payer Private Health Insurance MMO SUP ERMED PPO [id number] 2024 Blue Cross Blue Shield [id number] 2024 Unknown [id number] 2024 Self-pay [id number] 2024 Unknown [id number] 2023 Unknown 2022 Unknown [id number] 2022 Medicaid [id number] 2022 Medicaid [id number] Unknown [id number] Unknown [id number] Social History Date Type Detail Facility Start: 02-14-2024 End: 05-14-2024 Caffeine use [facility]: Start: 10-19-2021 End: 10-19-2021 Tobacco smoking status MTIS Unknown if ever smoked [facility] Start: 2000 Sex Assigned At Female [facility] Start: 05-04-2015 End: 04-12-2022 Tobacco smoking status NHIS Never smoked tobacco [facility] Start: 05-04-2015 End: 04-12-2022 Tobacco use and exposure Smokeless tobacco non-user [facility] Start: 2000 Sex assigned at Not on file [facility] Start: 02-14-2024 End: 05-14-2024 Gender identity Not on file [facility] Start: 05-04-2015 National Score (1-100), lower number is lower risk 61 [facility] Start: 04-12-2022 End: 10-30-2024 Alcohol intake Ex-drinker (finding) [facility] Start: 04-12-2022 History SDOH Alcohol Frequency 1 [facility] Start: 04-12-2022 History SDOH Alcohol Std Drinks 0 [facility] Start: 04-12-2022 History SDOH Social Connections Phone 98 [facility] Start: 04-12-2022 History SDOH Social Connections Living 3 [facility] Start: 04-12-2022 History SDOH IPV Fear 2 S [facility] Start: 04-12-2022 End: 03-25-2024 Education 13 [facility] Start: 04-02-2022 End: 04-12-2022 Exposure to SARS-CoV-2 (event) Not sure [facility] Start: 02-18-2024 [facility] Start: 03-25-2024 Gender identity Identifies as female gender (finding) [facility] Start: 03-25-2024 Sexual orientation Heterosexual (reba beauchamp) [facility] NEGATED: Highlighted rowStart: KATIE History of tobacco use Passive smoker [facility] Clinical Notes 10-21-2021 to 11-05-2024 Quick Notes - Carey Frost APRN.[facility] - 11/05/2024 10:50 AM EDTPrenatal Quick Notes - Carey Frost APRN.[facility] - 11/05/2024 10:50 AM EDTPatient InstructionsPatient [...] go into spontaneous labor desires IOL at [facility] at 41 weeks -Sign H&P and schedule at next visit PTL precautions reviewed and when to call RTO in 2 weeks Carey Frost APRN.CNM [facility] 11-05-2024 Miscellaneous Notes GE-S: Kiera Arvizu is [...] go into spontaneous labor desires IOL at [facility] at 41 weeks -Sign H&P and schedule at next visit PTL precautions reviewed and when to call RTO in 2 weeks Carey Frost APRN.CNM documented in this encounter [facility] 11-05-2024 Instructions Kayla Walker MA - 11/05/2024 10:18 AM EDT SEQUENTIAL SCREENINGS The [facility] offers sequential screenings for women who are [...] It will require an appointment with our auto body technician. This is not an ultrasound performed [...] the above symptoms, contact our office at [phone] and ask to speak with a nurse. After hours, you can call doctors registry at [phone] OR call [facility] at [phone] and ask to have the doctor aviation consultant paged. If you consider this an emergency, dial 9-0-3 or go to your nearest emergency department. NEED HELP? Are you dealing with a violent or abusive relationship? Are you a victim of rape or sexual assult? Call [facility] ([place]) 24 hour Crisis Hotline: 224.742.3271 or 570-040-5076. MANUAL Your Guide to a Healthy manual is now on-line. Visit [email or web address] to download your free copy documented in this encounter [facility] 10-30-2024 Note HNO ID: [id number] Author: BIBIANA LEIGH MA Service: ? Author Type: Boarding House Manager Type: Progress Notes Filed: 10/30/2024 09:28 Note Text: POPULATION HEALTH NAVIGATION OUTREACH Action/FYI Called and spoke with pt and confirmed home health outreach coordinator. Reason for Outreach Medicaid OB/Peds Care Gaps due: N/A Patient Contacted: Spoke to patient/parent/or legal guardian Patient identified by name and : Yes Medicaid OB/Peds actions taken: /Supervisory Cbp Officer added Navigation Signature: Bibiana Jay MA October 30, 2024 9:26 AM [facility] 10-28-2024 Note HNO ID: [id number] Author: BIBIANA LEIGH MA Service: ? Author Type: Boarding House Manager Type: Progress Notes Filed: 10/28/2024 14:01 Note Text: POPULATION HEALTH NAVIGATION OUTREACH Action/ attempt: Called and left message to call back to discuss home health outreach coordinator. MC message sent. Reason for Outreach Medicaid OB/Peds Care Gaps due: N/A Patient Contacted: Unable or unnecessary to reach patient: Unable to reach patient Left message One On Onehart message sent Navigation Signature: Bibiana Jay MA October 28, 2024 12:49 PM [facility] 10-28-2024 History of Present illness Narrative POPULATION HEALTH NAVIGATION OUTREACH Action/ attempt: Called and left message to call back to discuss home health outreach coordinator. MC message sent. Reason for Outreach Medicaid OB/Peds Care Gaps due: N/A Patient Contacted: Unable or unnecessary to reach patient: Unable to reach patient Left message One On Onehart message sent Navigation Signature: Bibiana Jay MA October 28, 2024 12:49 PM documented in this encounter [facility] 10-28-2024 Note Patient Outreach (NE TNAV) KIERA ARVIZU ([id number]) 1 F Date Time Provider Department 10/28/24 BIBIANA LEIGH During your visit today, we recorded the following information about you: Bibiana Leigh MA 10/28/2024 2:01 PM Signed POPULATION HEALTH NAVIGATION OUTREACH Action/FYI 1st attempt: Called and left message to call back to discuss home health outreach coordinator. MC message sent. Reason for Outreach Medicaid OB/Peds Care Gaps due: N/A Patient Contacted: Unable or unnecessary to reach patient: Unable to reach patient Left message MyChart message sent Navigation Signature: Bibiana Jay MA October 28, 2024 12:49 PM Bibiana Leigh MA 10/30/2024 9:28 AM Signed POPULATION HEALTH NAVIGATION OUTREACH Action/FYI Called and spoke with pt and confirmed home health outreach coordinator. Reason for Outreach Medicaid OB/Peds Care Gaps due: N/A Patient Contacted: Spoke to patient/parent/or legal guardian Patient identified by name and : Yes Medicaid OB/Peds actions taken: /Supervisory Cbp Officer added Navigation Signature: Bibiana Jay MA October 30, 2024 9:26 AM Allergies As of Date: 10/28/2024 (No Known Allergies) Date Reviewed: 10/23/2024 Reviewed by: Devorah García LPN - Fully Assessed Reason for Visit: [facility] [place][Note 2] Navigation Outreach [3910] Cmt: Ob/peds Prescriptions as [...] Encounter Status:Closed by BIBIANA LEIGH on 10/28/24 [facility] 10-23-2024 Progress note Formatting of t [...] or sooner if needed Daija Roblero APRN.CNM [facility] Work Phone: 10-23-2024 Miscellaneous Notes S: Kiera [...] Daija Roblero APRN.CNM documented in this encounter [facility] 10-23-2024 Instructions Devorah García LPN - 10/23/2024 10:43 AM EDT SEQUENTIAL SCREENINGS The [facility] offers sequential screenings for women who are [...] It will require an appointment with our auto body technician. This is not an ultrasound performed [...] the above symptoms, contact our office at [phone] and ask to speak with a nurse. After hours, you can call doctors registry at [phone] OR call [facility] at [phone] and ask to have the doctor aviation consultant paged. If you consider this an emergency, dial or go to your nearest emergency department. NEED HELP? Are you dealing with a violent or abusive relationship? Are you a victim of rape or sexual assult? Call [facility] ([place]) 24 hour Crisis Hotline: 500.192.8123 or 326-399-8913. MANUAL Your Guide to a Healthy manual is now on-line. Visit [email or web address] to download your free copy documented in this encounter [facility] 10-15-2024 Progress note Formatting of t his note might be different from the original. KJ - S: Kiera denies LOF, contractions or vaginal bleeding. O: 36w2d, see flow sheet SENSITIVE EXAM: The sensitive examination was discussed with the Patient or Patient's Authorized Signal Tower Operator. As applicable, any other physician, advance practice provider, medical student, or other health professional student that will be observing or involved in the sensitive examination for educational or training purposes was discussed with the Patient or Authorized Signal Tower Operator. The Patient or Authorized Signal Tower Operator has agreed to proceed with the sensitive examination. (Sensitive examination includes inspection and/or palpation of the breasts, pelvis, prostate and anorectal regions). A/P: Assessment & Plan Supervision of high risk in third trimester ([facility]) Orders: URINE OB DIP B/O ROUTINE, GROUP B STREPTOCOCCUS BY PCR Desires (vaginal after ) trial ([facility]) Patient requests IOL at [facility] if no spontaneous labor by [facility]. Orders: URINE OB DIP B/O History of section Orders: URINE OB DIP B/O History of delivery, currently ([facility]) Orders: URINE OB DIP B/O Anemia complicating , third trimester ([facility]) Continue iron & PNV Orders: URINE OB DIP B/O 36 weeks gestation of ([facility]) GBS today Orders: URINE OB DIP B/O Growth US today shows AGA with AC at 96% Reviewed PTL & FM precautions Kamar Valdovinos MD [facility] 10-15-2024 Miscellaneous Notes KJ - S: Kiera denies LOF, contractions or vaginal bleeding. O: 36w2d, see flow sheet SENSITIVE EXAM: The sensitive examination was discussed with the Patient or Patient's Authorized Signal Tower Operator. As applicable, any other physician, advance practice provider, medical student, or other health professional student that will be observing or involved in the sensitive examination for educational or training purposes was discussed with the Patient or Authorized Signal Tower Operator. The Patient or Authorized Signal Tower Operator has agreed to proceed with the sensitive examination. (Sensitive examination includes inspection and/or palpation of the breasts, pelvis, prostate and anorectal regions). A/P: Assessment & Plan Supervision of high risk in third trimester ([facility]) Orders: URINE OB DIP B/O ROUTINE, GROUP B STREPTOCOCCUS BY PCR Desires (vaginal after ) trial ([facility]) Patient requests IOL at [facility] if no spontaneous labor by [facility]. Orders: URINE OB DIP B/O History of section Orders: URINE OB DIP B/O History of delivery, currently ([facility]) Orders: URINE OB DIP B/O Anemia complicating , third trimester ([facility]) Continue iron & PNV Orders: URINE OB DIP B/O 36 weeks gestation of ([facility]) GBS today Orders: URINE OB DIP B/O Growth US today shows AGA infant with AC at 96% Reviewed PTL & FM precautions Kamar Valdovinos MD documented in this encounter [facility] 10-15-2024 Note Indication Evaluation of growth. History [...] 14 oz EFW by: Hadlock (HC-AC-FL) Extended Actuarial Analyst 2.5 mm Extremities / Bony Struc [place] [...] 10/15/2024 9:37 AM EDT SEQUENTIAL SCREENINGS The [facility] offers sequential screenings for women who are [...] It will require an appointment with our auto body technician. This is not an ultrasound performed [...] the above symptoms, contact our office at [phone] and ask to speak with a nurse. After hours, you can call doctors registry at [phone] OR call [facility] at [phone] and ask to have the doctor aviation consultant paged. If you consider this an emergency, dial 9-1-1 or go to your nearest emergency department. NEED HELP? Are you dealing with a violent or abusive relationship? Are you a victim of rape or sexual assult? Call [facility] ([place]) 24 hour Crisis Hotline: 884.719.5678 or 456-625-4054. MANUAL Your Guide to a Healthy manual is now on-line. Visit [email or web address] to download your free copy documented in this encounter [facility] 10-02-2024 Progress note Formatting of t his [...] Supervision of high risk in third trimester ([facility]) - ICD9: V23.9, ICD10: O09.93 (primary diagnosis) - Continue PNV and LDA 2. 34 weeks gestation of ([facility]) - ICD9: V22.2, ICD10: Z3A.34 - GBS next visit 3. History of section - ICD9: V45.89, ICD10: Z98.891 4. Desires (vaginal after ) trial ([facility]) - ICD9: 654.20, ICD10: O34.219 5. History of delivery, currently ([facility]) - ICD9: V23.89, ICD10: O09.899 - Delivered at 29 weeks due to pre e - Growth at 32 weeks appropriate, repeat next visit 6. History of pre-eclampsia - ICD9: V13.29, ICD10: Z87.59 7. Anemia complicating , third trimester ([facility]) - ICD9: 648.23, 285.9, ICD10: O99.013 - Continue oral iron - Repeat CBC today PTL precautions and kick counts reviewed. RTO in 2 weeks or sooner as needed. Mik Mendoza APRN.CORE BLOWER OPERATOR [facility] 10-02-2024 Miscellaneous Notes EH - S: Kiera [...] Supervision of high risk in third trimester ([facility]) - ICD9: V23.9, ICD10: O09.93 (primary diagnosis) - Continue PNV and LDA 2. 34 weeks gestation of ([facility]) - ICD9: V22.2, ICD10: Z3A.34 - GBS next visit 3. History of section - ICD9: V45.89, ICD10: Z98.891 4. Desires (vaginal after ) trial ([facility]) - ICD9: 654.20, ICD10: O34.219 5. History of delivery, currently ([facility]) - ICD9: V23.89, ICD10: O09.899 - Delivered at 29 weeks due to pre e - Growth at 32 weeks appropriate, repeat next visit 6. History of pre-eclampsia - ICD9: V13.29, ICD10: Z87.59 7. Anemia complicating , third trimester ([facility]) - ICD9: 648.23, 285.9, ICD10: O99.013 - Continue oral iron - Repeat CBC today PTL precautions and kick counts reviewed. RTO in 2 weeks or sooner as needed. Mik Mendoza APRN.CORE BLOWER OPERATOR documented in this encounter [facility] 10-02-2024 Instructions Kayla Walker MA - 10/02/2024 8:30 AM EDT SEQUENTIAL SCREENINGS The [facility] offers sequential screenings for women who are [...] It will require an appointment with our auto body technician. This is not an ultrasound performed [...] the above symptoms, contact our office at [phone] and ask to speak with a nurse. After hours, you can call doctors registry at [phone] OR call [facility] at [phone] and ask to have the doctor aviation consultant paged. If you consider this an emergency, dial 7--5 or go to your nearest emergency department. NEED HELP? Are you dealing with a violent or abusive relationship? Are you a victim of rape or sexual assult? Call [facility] ([place]) 24 hour Crisis Hotline: 831.825.3413 or 237-598-0869. MANUAL Your Guide to a Healthy manual is now on-line. Visit [email or web address] to download your free copy documented in this encounter [facility] 09-19-2024 Note Indication Evaluation of growth History [...] Supervision of high risk in third trimester ([facility]) - ICD9: V23.9, ICD10: O09.93 (primary diagnosis) 2. History of delivery, currently ([facility]) - ICD9: V23.89, ICD10: O09.899 3. History of pre-eclampsia - ICD9: V13.29, ICD10: Z87.59 Normal BP 4. History of section - ICD9: V45.89, ICD10: Z98.891 Desires TOLAC 5. Desires (vaginal after ) trial ([facility]) - ICD9: 654.20, ICD10: O34.219 6. 32 weeks gestation of ([facility]) - ICD9: V22.2, ICD10: Z3A.32 Katherine Brunner MD [facility] 09-18-2024 Miscellaneous Notes S: Kiera Arvizu is [...] Supervision of high risk in third trimester ([facility]) - ICD9: V23.9, ICD10: O09.93 (primary diagnosis) 2. History of delivery, currently ([facility]) - ICD9: V23.89, ICD10: O09.899 3. History of pre-eclampsia - ICD9: V13.29, ICD10: Z87.59 Normal BP 4. History of section - ICD9: V45.89, ICD10: Z98.891 Desires TOLAC 5. Desires (vaginal after ) trial ([facility]) - ICD9: 654.20, ICD10: O34.219 6. 32 weeks gestation of ([facility]) - ICD9: V22.2, ICD10: Z3A.32 Katherine Brunner MD documented in this encounter [facility] 09-18-2024 Instructions Brenda Anand MA - 09/18/2024 2:14 PM EDT SEQUENTIAL SCREENINGS The [facility] offers sequential screenings for women who are [...] It will require an appointment with our auto body technician. This is not an ultrasound performed [...] the above symptoms, contact our office at [phone] and ask to speak with a nurse. After hours, you can call doctors registry at [phone] OR call [facility] at [phone] and ask to have the doctor aviation consultant paged. If you consider this an emergency, dial 91-2 or go to your nearest emergency department. NEED HELP? Are you dealing with a violent or abusive relationship? Are you a victim of rape or sexual assult? Call [facility] ([place]) 24 hour Crisis Hotline: 229.111.2836 or 062-450-2630. MANUAL Your Guide to a Healthy manual is now on-line. Visit [email or web address] to download your free copy documented in this encounter [facility] 09-04-2024 Progress note Formatting of t his [...] or sooner if needed Daija Roblero APRN.CNM [facility] 09-04-2024 Miscellaneous Notes S: Kiera Arvizu is [...] Daija Roblero APRN.CNM documented in this encounter [facility] 09-04-2024 Instructions Manny Carney MA - 09/04/2024 9:34 AM EDT SEQUENTIAL SCREENINGS The [facility] offers sequential screenings for women who are [...] It will require an appointment with our auto body technician. This is not an ultrasound performed [...] the above symptoms, contact our office at [phone] and ask to speak with a nurse. After hours, you can call doctors registry at [phone] OR call [facility] at [phone] and ask to have the doctor aviation consultant paged. If you consider this an emergency, dial 11-25- or go to your nearest emergency department. NEED HELP? Are you dealing with a violent or abusive relationship? Are you a victim of rape or sexual assult? Call [facility] ([place]) 24 hour Crisis Hotline: 852.614.3718 or 779-783-0171. MANUAL Your Guide to a Healthy manual is now on-line. Visit [email or web address] to download your free copy documented in this encounter [facility] 08-29-2024 Telephone encounter Note Message sent to Monica Lopez to ask if patient can be authorized, [facility] 08-29-2024 Miscellaneous Notes Message sent to Monica Lopez to ask if patient can be authorized, Received request to assist patient in scheduling growth US at 32 weeks. Order placed. Patient needs financial clearance. I have placed a hold time for 09/18 at 2:30 for patient. Please schedule once approved. documented in this encounter [facility] 08-21-2024 Telephone encounter Note Received request to assist patient in scheduling growth US at 32 weeks. Order placed. Patient needs financial clearance. I have placed a hold time for 09/18 at 2:30 for patient. Please schedule once approved. [facility] 08-21-2024 Progress note Formatting of t his [...] RTO in 2 weeks Carey Frost APRN.CNM [facility] 08-21-2024 Miscellaneous Notes GE-S: Kiera Arvizu is [...] Carey Frost APRN.CNM documented in this encounter [facility] 08-21-2024 Instructions Carey Frost APRN.CNM - 08/21/2024 9:10 AM EDT SEQUENTIAL SCREENINGS The [facility] offers sequential screenings for women who are [...] It will require an appointment with our auto body technician. This is not an ultrasound performed [...] the above symptoms, contact our office at [phone] and ask to speak with a nurse. After hours, you can call doctors registry at [phone] OR call [facility] at [phone] and ask to have the doctor aviation consultant paged. If you consider this an emergency, dial or go to your nearest emergency department. NEED HELP? Are you dealing with a violent or abusive relationship? Are you a victim of rape or sexual assult? Call [facility] ([place]) 24 hour Crisis Hotline: 240.807.3833 or 408-308-0681. MANUAL Your Guide to a Healthy manual is now on-line. Visit [email or web address] to download your free copy [...] reach 10 kicks documented in this encounter [facility] 07-24-2024 Note HNO ID: [id number] Author: MIK MENDOZA APRN.CORE BLOWER OPERATOR Service: ? Author Type: Nurse Practitioner Type: [...] Supervision of high risk in second trimester ([facility]) - ICD9: V23.9, ICD10: O09.92 (primary diagnosis) 2. 24 weeks gestation of ([facility]) - ICD9: V22.2, ICD10: Z3A.24 - GTT, CBC, RPR next visit 3. History of delivery, currently ([facility]) - ICD9: V23.89, ICD10: O09.899 - Due to pre eclampsia 4. History of pre-eclampsia - ICD9: V13.29, ICD10: Z87.59 - Continue LDA 5. History of section - ICD9: V45.89, ICD10: Z98.891 - Wants to - Previously counseled by Dr. Valdovinos PTL precautions reviewed. RTO in 4 weeks or sooner as needed. Mik Mendoza APRN.CORE BLOWER OPERATOR [facility] 07-24-2024 History of Present illness Narrative [...] Supervision of high risk in second trimester ([facility]) - ICD9: V23.9, ICD10: O09.92 (primary diagnosis) 2. 24 weeks gestation of ([facility]) - ICD9: V22.2, ICD10: Z3A.24 - GTT, CBC, RPR next visit 3. History of delivery, currently ([facility]) - ICD9: V23.89, ICD10: O09.899 - Due to pre eclampsia 4. History of pre-eclampsia - ICD9: V13.29, ICD10: Z87.59 - Continue LDA 5. History of section - ICD9: V45.89, ICD10: Z98.891 - Wants to - Previously counseled by Dr. Valdovinos PTL precautions reviewed. RTO in 4 weeks or sooner as needed. Mik Mendoza APRN.CORE BLOWER OPERATOR documented in this encounter [facility] 07-24-2024 Instructions Devorah García LPN - 07/24/2024 8:35 AM EDT SEQUENTIAL SCREENINGS The [facility] offers sequential screenings for women who are [...] It will require an appointment with our auto body technician. This is not an ultrasound performed [...] the above symptoms, contact our office at [phone] and ask to speak with a nurse. After hours, you can call doctors registry at [phone] OR call [facility] at [phone] and ask to have the doctor aviation consultant paged. If you consider this an emergency, dial 9-1-4 or go to your nearest emergency department. NEED HELP? Are you dealing with a violent or abusive relationship? Are you a victim of rape or sexual assult? Call [facility] ([place]) 24 hour Crisis Hotline: 355.204.9161 or 776-229-3829. MANUAL Your Guide to a Healthy manual is now on-line. Visit [email or web address] to download your free copy documented in this encounter [facility] 06-24-2024 Progress note Formatting of t his [...] ICD9: V22.2, ICD10: Z3A.20 Katherine Brunner MD [facility] 06-24-2024 Miscellaneous Notes S: Kiera Arvizu is [...] Katherine Brunner MD documented in this encounter [facility] 05-20-2024 Telephone encounter Note 15w1d Patient called to inquire about her results of [id number]. Advised that provider has not reviewed her labs as of yet. Notified of baby's gender per patient and 's request. Katherine Philip RN [facility] 05-20-2024 Miscellaneous Notes 15w1d Patient called to inquire about her results of [id number]. Advised that provider has not reviewed her labs as of yet. Notified of baby's gender per patient and 's request. Katherine Philip RN documented in this encounter [facility] 05-14-2024 Progress note Formatting of t his [...] blood pressure complications would recommend repeat at [facility] or referral to tertiary care center if strongly desires IOL. Recommend scheduling repeat at 39-40 weeks. All questions answered. Kamar Valdovinos MD [facility] 05-14-2024 Miscellaneous Notes KJ - VB No. [...] blood pressure complications would recommend repeat at [facility] or referral to tertiary care center if strongly desires IOL. Recommend scheduling repeat at 39-40 weeks. All questions answered. Kamar Valdovinos MD documented in this encounter [facility] 05-14-2024 Progress note Formatting of t his note might be different from the original. Anatomy ultrasound reviewed. No abnormalities identified. Follow up as clinically indicated. Please place copy in ob chart. Collette Cisneros MD [facility] Work Phone: 05-14-2024 Miscellaneous Notes Anatomy ultrasound reviewed. No abnormalities identified. Follow up as clinically indicated. Please place copy in ob chart. Collette Cisneros MD documented in this encounter [facility] 05-14-2024 History of Present illness Narrative Obstetrics & Gynecology [place] [facility] Outpatient Visit Type: Maternal Medicine Consult Outpatient Visit Date: May 14, 2024 Service Time: 830 AM Requesting Provider: Mik Mendoza History of Present Illness: Kiera Arvizu is 23 year old at 14w2d presenting for consultation with Maternal- Medicine at [facility] in the setting of history of preeclampsia [...] indicated. - Single, live, intrauterine . - [place] rump length measurement and biometry are consistent [...] ultrasound. 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 Baseline labs were ordered but not drawn [...] which included preparing to see the patient, [id number] patient care, completing clinical documentation, obtaining and/or reviewing separately obtained history, and communicating results to the patient/family/caregiver. I shared my findings and recommendations via the shared medical record or via the mail to the referring provider. Darnell Blank MD documented in this encounter [facility] 05-14-2024 Note HNO ID: [id number] Author: DARNELL BLANK MD Service: ? Author Type: Physician Type: Progress Notes Filed: 05/14/2024 09:20 Note Text: Obstetrics AND Gynecology [place] [facility] Outpatient Visit Type: Maternal Medicine Consult Outpatient Visit Date: May 14, 2024 Service Time: 830 AM Requesting Provider: Mik Mendoza History of Present Illness: Kiera Arvizu is 23 year old at 14w2d presenting for consultation with Maternal- Medicine at [facility] in the setting of history of preeclampsia [...] indicated. - Single, live, intrauterine . - [place] rump length measurement and biometry are consistent [...] ultrasound. 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 Baseline labs were ordered but not drawn [...] letter to requesting (more content not included)... [facility] 05-14-2024 Instructions Kayla Walker MA - 05/14/2024 8:45 AM EST SEQUENTIAL SCREENINGS The [facility] offers sequential screenings for women who are [...] It will require an appointment with our auto body technician. This is not an ultrasound performed [...] the above symptoms, contact our office at [phone] and ask to speak with a nurse. After hours, you can call doctors registry at [phone] OR call [facility] at [phone] and ask to have the doctor aviation consultant paged. If you consider this an emergency, dial or go to your nearest emergency department. NEED HELP? Are you dealing with a violent or abusive relationship? Are you a victim of rape or sexual assult? Call [facility] ([facility] 24 hour Crisis Hotline: 364.937.3042 or 655-243-4567. MANUAL Your Guide to a Healthy manual is now on-line. Visit [email or web address] to download your free copy documented in this encounter [facility] 03-29-2024 Telephone encounter Note 1st risk assessment form submitted 03/29/2024 7w 5d today [facility] 03-29-2024 Miscellaneous Notes 1st risk assessment form submitted 03/29/2024 7w 5d today documented in this encounter [facility] 03-28-2024 Note HNO ID: [id number] Author: MIK MENDOZA APRN.CORE BLOWER OPERATOR Service: ? Author Type: Nurse Practitioner Type: Progress Notes Filed: 03/28/2024 10:34 Note Text: Foundry Worker Apprentice offered: Patient declines. 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 [facility] 03-28-2024 History of Present illness Narrative Foundry Worker Apprentice offered: Patient declines. 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 Mik Mendoza APRN.CORE BLOWER OPERATOR Does patient have penicillin allergy: No REVIEW [...] discussed with the Patient or Patient's Authorized Signal Tower Operator. As applicable, any other physician, advance practice provider, medical student, or other health professional student that will be observing or involved in the sensitive examination for educational or training purposes was discussed with the Patient or Authorized Signal Tower Operator. The Patient or Authorized Signal Tower Operator has agreed to proceed with the sensitive [...] Your guide to a health and the Pasteurizer Helper. Discussed hemoglobin electrophoresis. Patient: Declines Reviewed midwifery and gas system operator services that are available. Reviewed [employer] program. Patient declines referral at this time. [...] (28-30 weeks): [] Consent [] Contraception [] Supervisory Cbp Officer [] TeamBirth handout Third trimester (36-40 weeks): [] GBS [] Presentation - [] Scheduled [] yes - Hibiclens, pre-op instructions, CBC, T&S ordered [] no [] H&P [] Preferences worksheet [] Scanned in EMR History of Section - 03/28/2024 Comment: Wants to - to discuss with physician 04/12/2022 at [facility] Surgical Operations & Procedures: Date of delivery: 04/12/22 Procedure: : Low Transverse Anesthesia: Spinal anesthesia and TAP block Laceration(s): n/a Delivery Complications: none EBL: 500 mL History of Pre-Eclampsia - 03/28/2024 Comment: March 28, 2024 Delivered at 29 weeks at [facility]. Baseline labs ordered. MFM consult ordered. History [...] Mik Mendoza APRN.CNP documented in this encounter [facility] 03-25-2024 Instructions Mik Mendoza APRN.CNP - 03/25/2024 3:46 PM EST Please select the following link to access the [facility] Your Guide to a Healthy . [email or web address] Please select the following link to access the [facility] Your Guide to a Healthy . [email or web address] [facility] provides specialized care for patients whose experiences [...] To speak with our team, please call [phone] or email documented in this encounter [facility] 02-28-2024 Miscellaneous Notes Noted. Will have patient sign a release of records if not received before her appointment. Some records are available in Care Everywhere. Katherine Philip RN Patient wanted to let the office know she has been trying to request her records from [employer] for over a month now, and she still has not heard anything back. Patient states she has tried multiple times. Please review. Nandini Hardin February 28, 2024 11:25 AM documented in this encounter [facility] 02-28-2024 Telephone encounter Note Noted. Will have patient sign a release of records if not received before her appointment. Some records are available in Care Everywhere. Katherine Philip RN [facility] 02-28-2024 Telephone encounter Note Patient wanted to let the office know she has been trying to request her records from [employer] for over a month now, and she still has not heard anything back. Patient states she has tried multiple times. Please review. Nandini Hardin February 28, 2024 11:25 AM [facility] 12-26-2023 Telephone encounter Note Patient rescheduled with Dr Mojica. She will have her records sent to our office. Fax number provided [facility] 12-26-2023 Miscellaneous Notes Patient rescheduled with Dr Mojica. She will have her records sent to our office. Fax number provided Left message for patient to return phone call. Patient is scheduled for [facility] 01/02/2024 for preconceptual counseling . There is no referral. Appointment notes states pre-eclampsia with previous . Please triage. Dr Blank said it probably would be best for patient to start with OB doctor here for pre-conceptual counseling to see if referral to MFM is necessary. We would also need records if she proceeds with any appointment-none found in [facility] or [facility]-everywhere documented in this encounter [facility] 12-19-2023 Telephone encounter Note Left message for [...] she proceeds with any appointment-none found in [facility] or [facility]-everywhere [facility] 04-15-2022 History of Present illness Narrative Images [...] with more than 50% of the total smke-nx-bzws time of the visit in counseling/coordination of [...] stable to start PreEwSF - Transferred from [place] for persistent severe range BP's, BROWN, and [...] the AM due to TOMASA - improving. Dairy Hand PreEwSF symptoms. Plan DC home POD#3 or [...] from NICU Potential need for transfer to [facility] if needs esclation of care, based on a variety of factors. Handouts given. No further questions. A/P: Patient is a 21 Year old At 29 Weeks 2 Days by ultrasound With 1. Current Management per OB 2. NICU to attend delivery 3. Call NICU if further questions. Maya Mahoney APRN-JANICE Peck CNP documented in this encounter [facility] 04-14-2022 Obstetrics Note Follow up visit with [...] pump when she is ready for that. [facility] 04-14-2022 Miscellaneous Notes Follow up visit with [...] for this pt. Due to: infant in [facility] and 29 weeks Hospital breast pump, supplies [...] rental pump for home- will speak to [facility] about rental home pump 21 year old [...] but not emergent. Safety huddle performed with cooker operator, patient's primary RN, residents, attending, NICU staff and OB anesthesia in attendance. Decision made to proceed with unscheduled PCD at [address] Harris and lodge sales associate are available. All in agreement. Harris Beltre DO 04/12/2022 5:30 PM documented in this encounter [facility] 04-14-2022 Plan of care note The patient [...] other facility with appropriate resources Outcome: Progressing [facility] 04-13-2022 Obstetrics Note Breast pump use indicated [...] rental pump for home- will speak to [facility] about rental home pump [facility] 04-13-2022 Note Formatting of this n [...] home. Denies any concerns at this time. [employer] 04-13-2022 Note Formatting of this n ote [...] home. Denies any concerns at this time. [facility] 04-13-2022 Plan of care note The patient [...] other facility with appropriate resources Outcome: Progressing [facility] 04-12-2022 Note Patient: Kiera morrell Procedure Summary Date: 04/12/22 Room / Location: [facility] Labor and Delivery Anesthesia Start: 1804 Anesthesia [...] once all PACU criteria has been met. [facility] 04-12-2022 Note Patient: Kiera morrell Procedure Summary Date: 04/12/22 Room / Location: [facility] Labor and Delivery Anesthesia Start: 1804 Anesthesia [...] opportunity for questions and acknowledgement of understanding. [facility] 04-12-2022 Note Peripheral Block Time Out: 04/12/2022 7:15 PM Patient location during procedure: Procedural Start time: 04/12/2022 7:16 PM End time: 04/12/2022 7:26 PM Reason for block: at surgeon's request and post-op pain management Staffing Performed: WEALTH MANAGEMENT ADVISOR Anesthesiologist: Loyd Jamil MD Resident/WEALTH MANAGEMENT ADVISOR: JANICE Leal CRNA Preanesthetic Checklist Completed: patient identified, IV checked, site marked, risks and benefits discussed, surgical consent, monitors and equipment checked, pre-op evaluation and timeout performed Region: [place] Primary: TAP (60ml of Bupivacaine 0.375% with dexamethasone 0.01% with epinephrine 1:200,000 divided evenly bilaterally) Peripheral Block Patient position: supine Prep: ChloraPrep Patient monitoring: heart rate, engine monitor and continuous pulse ox O2: Room air [...] injection and Local anesthetic injected without difficultyMedications xgkKPPSWlpgyj-axkjpolensj-aziteylay ne (TAP) syringe - Transabdominal Plane 40 mL - 04/12/2022 7:16:00 PM [facility] 04-12-2022 Note Department of Obstet rics and Gynecology Delivery Discharge Summary Admission on 04/12/2022 3:09 PM Hospital course: 29w2d transport from [place] for severe range BP, headache and creatinine [...] Information for the patient's : Fritz Bello [[id number]] male 1200 g (2 lb 10.3 oz) Apgars: Information for the patient's : BenFritz [[id number]] : Infant: Boy; circumcision not done, baby [...] Your Medications These medications were sent to [facility] [address] [place] [address] Hours: Monday to Monday 10 am to [...] [] Order a blood pressure kit through [facility] (or the patient's own pharmacy on the weekend) [] Order the blood pressure log through [facility] [x] Place an office visit or telephone [...] her physician if any of these occur. [facility] 04-12-2022 Note Spinal Block Time Out: 04/12/2022 6:08 PM Patient location during procedure: OB Start time: 04/12/2022 6:09 PM End time: 04/12/2022 6:20 PM Reason for block: procedure for pain Staffing Performed: WEALTH MANAGEMENT ADVISOR Anesthesiologist: Loyd Jamil MD Resident/WEALTH MANAGEMENT ADVISOR: Kady Elizabeth APRN - THOMAS Spinal Block Patient position: sitting Prep: ChloraPrep Sterility prep: drape Approach: midline Location: L3-4 Injection technique: single-shot Needle Needle type: pencil-tip Needle gauge: 25 G Assessment Sensory level: T4 Number of attempts: 1 Procedure assessment: patient tolerated procedure well with no immediate complications [facility] 04-12-2022 Hospital Discharge instructions Riya Harris DO [...] as 8 weeks after delivery. Bleeding may quill picking machine operator and then decrease again around 7-10 days [...] avoid constipation you may take a mild eroz-jij-hvtxjbx stool softener (such as colace) as recommended [...] positive or a Person Under Investigation (PUI) Imzsqz-jv-qqtjc transmission of COVID-19 during is unlikely, but after a baby is susceptible to beastx-hv-lruuhh spread. After your baby is born, your [...] clean your hands with an alcohol-based hand topographical surveyor that contains at least 60% alcohol. Clean your hands often Wash your hands often with soap and water for at least 20 seconds, especially after blowing your nose, coughing, or sneezing; going to the bathroom; and before eating or preparing food. If soap and water are not readily available, use an alcohol-based hand topographical surveyor with at least 60% alcohol, covering all [...] isolation precautions should be made on a ymjd-xe-nxqt basis, in consultation with healthcare providers and [...] respiratory tract signs and symptoms. Ways to [place] with Anxiety & Stress It is normal [...] an illness that was first found in [facility], in February 2019. It has since spread [...] seen in people before. This virus spreads uhhxfh-kp-hutbog through droplets from coughing and sneezing. It [...] water aren't available, use an alcohol-based hand topographical surveyor. Call 911 anytime you think you may [...] of: June 26, 2019 Content Version: 12.4 [employer]. Care instructions adapted under license by your healthcare professional. If you have questions about a medical condition or this instruction, always ask your healthcare professional. [employer] disclaims any warranty or liability for your use of this information. General Recommendations for Routine Cleaning and Disinfection of Households Community members can practice routine cleaning of frequently touched surfaces (for example: tables, doorknobs, light switches, handles, desks, toilets, faucets, sinks) with household philosophy instructor and EPA-registered disinfectants that are appropriate for [...] appropriate. These supplies include tissues, paper towels, philosophy instructor and EPA-registered disinfectants (see list link at [facility] website). If a separate bathroom is not [...] be used for other purposes. Consult the patent attorney's instructions for cleaning and disinfection products used. [...] used if appropriate for the surface. Follow patent attorney's instructions for application and proper ventilation. Check [...] water Products with EPA-approved emerging viral pathogens [facility] iconexternal icon are expected to be effective against COVID-19 based on data for harder to kill viruses. Follow the patent attorney's instructions for all cleaning and disinfection products (e.g., concentration, application method and contact time, etc.). Soft (porous) surfaces such as carpeted floor, rugs, and drapes Remove visible contamination if present and clean with appropriate philosophy instructor indicated for use on these surfaces. After cleaning: Launder items as appropriate in accordance with the patent attorney's instructions. If possible, launder items using the [...] items as appropriate in accordance with the patent attorney's instructions. If possible, launder items using the warmest appropriate water setting for the items and dry items completely. Dirty laundry from an ill person can be washed with other people's items. Clean and disinfect clothes hampers according to guidance above for surfaces. If possible, consider placing a tire bagger that is either disposable (can be thrown away) or can be laundered. CDC has a list of EPA approved cleaning products on their website - https://www.cdc.gov/coronavirus/201 9-ncov/community/home/cleaning-disi nfection.html https://www.[employer]/N bvav-Ofpotdocrvs-Cdkzxjkt-Products- List.pdf Grocery Stores with delivery and quill picking machine operator services: [facility]: Free quill picking machine operator at locations Delivery is $12.95 a month Website - [employer] [place]: Test Desk Supervisor $2.95 (1st order is free) Delivery is $14.95 Website - [employer] Keisha Lasalle: lead supply worker is free Delivery is $5.95 Website [employer]: lead supply worker is $4.95 Delivery is $9.95 Website [employer]: lead supply worker is $4.95 Delivery is $9.95 [employer]: Can be ordered for delivery and quill picking machine operator with [employer] (formerly [employer]) Website - [employer]: Free deliver for first 3 orders of $35 or more Website - [employer] Will deliver from [employer], [employer], [employer], and [employer]. Annual membership is $99 Monthly membership is $14 documented in this encounter [facility] 04-12-2022 Note Patient: Kiera morrell Procedure Information [...] products. patient is NPO Additional Equipment Requests [facility] [employer] [facility] 04-12-2022 Note Attestation signed by Gia Mclaughlin MD at 04/12/2022 7:09 PM I independently saw and evaluated the patient. I agree with the findings and plan of care as documented in the resident's note. Transport from [place] after severe range BP, headache and creatinine [...] Magnesium sulfate is running. Transport: Yes from [place] Prior Hospitalizations: No Estimated Due Date: Estimated Date of Delivery: 06/26/22 CARE: Complications: PreEwSF PAST OB HISTORY: OB History 1 Para 0 Term 0 AB Living 0 SAB IAB Ectopic Multiple Live Births 0 Detailed OB Histor (more content not included)... [facility] 04-12-2022 Note Formatting of this n ote [...] but not emergent. Safety huddle performed with cooker operator, patient's primary RN, residents, attending, NICU staff and OB anesthesia in attendance. Decision made to proceed with unscheduled PCD at [address] Harris and lodge sales associate are available. All in agreement. Harris Beltre DO 04/12/2022 5:30 PM [facility] 04-12-2022 Note Formatting of this n [...] but not emergent. Safety huddle performed with cooker operator, patient's primary RN, residents, attending, NICU staff and OB anesthesia in attendance. Decision made to proceed with unscheduled PCD at [address] Harris and lodge sales associate are available. All in agreement. Harris Beltre DO 04/12/2022 5:30 PM [facility] 04-12-2022 History and physical note Images [...] Magnesium sulfate is running. Transport: Yes from [place] Prior Hospitalizations: No Estimated Due Date: Estimated [...] to low mild range on arrival to [facility] - PreE labs repeated on arrival and [...] documented in the resident's note. Transport from [place] after severe range BP, headache and creatinine [...] residency staff and nursing Gia Mclaughlin MD [facility] 04-12-2022 History and physical note Images from the original note were not included. Department of Maternal Medicine History and Physical CHIEF COMPLAINT[facility] OF PRES[facility]LL[facility]: The patient [...] Magnesium sulfate is running. Transport: Yes from [place] Prior Hospitalizations: No Estimated Due Date: Estimated [...] to low mild range on arrival to [facility] - PreE labs repeated on arrival and [...] documented in the resident's note. 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 Eczema Surgical history: 1. Bunion removal bilateral feet 2013 2. [place] tooth extraction 2020 No history of issues [...] 5-5 throughout extremities FHR: 135/mod alise/+accel/no decel Payne: rare labs: A positive Syphilis negative Hepatitis [...] blood pressure stabilization with subsequent transport to [facility]. Reviewed likely plan of care with [...] [address] Gia Mclaughlin accepting transport [facility]. Started labetalol 100 mg BID. Creatinine [...] DO; No Primary Care Physician ~* Signed [facility] Work Phone: [phone]) 132-376207-28-2022 NotePap Smear Specimen AdequacyJuly 2021 8:45amComment.Satisfactory for evaluation. Endocervical and/or squamous metaplasticcells (endocervical component)are present.[facility]#[id number] Work Phone: Comment on above:Satisfactory for evaluation. Endocervical and/or squamous metaplasticcells (endocervical component)are present.Evaluation noteNo assessment information availableWBerger Hospital Work Phone: Evaluation note* Diagnosis Preeclampsia, severe, third trimester- Primary Preeclampsia, severe, third trimester S/P Severe pre-eclampsia in third trimester [facility] Encounter for supervision of high risk in first trimester, antepartum- Primary 7 weeks gestation of state, incidental History of pre-eclampsia Personal history of other genital system and obstetric disorders History of delivery, currently with history of pre-term labor History of section Other postprocedural status Constipation during in first trimester Heartburn during in first trimester [facility]* Diagnosis History of delivery, currently - [...] for severe preeclampsia documented in this encounter [facility] note* Diagnosis Encounter for screening for malformation [...] of state, incidental [facility]* Diagnosis History of delivery, currently - Primary with history of pre-term labor History of section Other postprocedural status History of pre-eclampsia Personal history of other genital system and obstetric disorders 14 weeks gestation of state, incidental History of pre-eclampsia- Primary Personal history of other genital system and obstetric disorders [facility]* Diagnosis History of delivery, currently (HCC)- Primary with history of pre-term labor History of section Other postprocedural status History of pre-eclampsia Personal history of other genital system and obstetric disorders 14 weeks gestation of ([facility]) state, incidental Encounter for supervision of normal first in second trimester ([facility])- Primary Supervision of normal first History of pre-eclampsia Personal history of other genital system and obstetric disorders History of section Other postprocedural status 20 weeks gestation of ([facility]) state, incidental [facility]* Diagnosis History of delivery, currently ([facility])- Primary with history of pre-term labor History of section Other postprocedural status History of pre-eclampsia Personal history of other genital system and obstetric disorders 14 weeks gestation of ([facility]) state, incidental Encounter for anatomic survey ([facility])- Primary Encounter for anatomic survey 20 weeks gestation of ([facility]) state, incidental documented in this encounter [facility] note* Diagnosis History of delivery, currently ([facility])- Primary with history of pre-term labor History of section Other postprocedural status History of pre-eclampsia Personal history of other genital system and obstetric disorders 14 weeks gestation of ([facility]) state, incidental Supervision of high risk in second trimester ([facility])- Primary Unspecified high-risk 24 weeks gestation of ([facility]) state, incidental History of delivery, currently ([facility]) with history of pre-term labor History of pre-eclampsia Personal history of other genital system and obstetric disorders History of section Other postprocedural status documented in this encounter [facility] note* Diagnosis History of delivery, currently ([facility])- Primary with history of pre-term labor History of section Other postprocedural status History of pre-eclampsia Personal history of other genital system and obstetric disorders 14 weeks gestation of ([facility]) state, incidental Supervision of high risk in third trimester ([facility])- Primary Unspecified high-risk 28 weeks gestation of ([facility]) state, incidental History of delivery, currently ([facility]) with history of pre-term labor History of pre-eclampsia Personal history of other genital system and obstetric disorders History of section Other postprocedural status Desires (vaginal after ) trial ([facility]) Previous delivery, unspecified as to episode of care or not applicable [facility]* Diagnosis History of delivery, currently ([facility])- Primary with history of pre-term labor History of section Other postprocedural status History of pre-eclampsia Personal history of other genital system and obstetric disorders 14 weeks gestation of ([facility]) state, incidental Supervision of high risk in third trimester ([facility])- Primary Unspecified high-risk History of delivery, currently ([facility]) with history of pre-term labor History of pre-eclampsia Personal history of other genital system and obstetric disorders History of section Other postprocedural status Desires (vaginal after ) trial ([facility]) Previous delivery, unspecified as to episode of care or not applicable 30 weeks gestation of ([facility]) state, incidental Anemia complicating , third trimester ([facility]) documented in this encounter [facility] note* Diagnosis History of delivery, currently ([facility])- Primary with history of pre-term labor History of section Other postprocedural status History of pre-eclampsia Personal history of other genital system and obstetric disorders 14 weeks gestation of ([facility]) state, incidental Supervision of high risk in third trimester ([facility])- Primary Unspecified high-risk History of delivery, currently ([facility]) with history of pre-term labor History of pre-eclampsia Personal history of other genital system and obstetric disorders History of section Other postprocedural status Desires (vaginal after ) trial ([facility]) Previous delivery, unspecified as to episode of care or not applicable 32 weeks gestation of ([facility]) state, incidental [facility]* Diagnosis History of delivery, currently ([facility])- Primary with history of pre-term labor History of section Other postprocedural status History of pre-eclampsia Personal history of other genital system and obstetric disorders 14 weeks gestation of ([facility]) state, incidental Supervision of high risk in third trimester ([facility]) Unspecified high-risk 28 weeks gestation of ([facility]) state, incidental History of delivery, currently ([facility]) with history of pre-term labor History of pre-eclampsia Personal history of other genital system and obstetric disorders documented in this encounter [facility] note* Diagnosis History of delivery, currently ([facility])- Primary with history of pre-term labor History of section Other postprocedural status History of pre-eclampsia Personal history of other genital system and obstetric disorders 14 weeks gestation of ([facility]) state, incidental Supervision of high risk in third trimester ([facility])- Primary Unspecified high-risk 34 weeks gestation of ([facility]) state, incidental History of section Other postprocedural status Desires (vaginal after ) trial ([facility]) Previous delivery, unspecified as to episode of care or not applicable History of delivery, currently ([facility]) with history of pre-term labor History of pre-eclampsia Personal history of other genital system and obstetric disorders Anemia complicating , third trimester ([facility]) [facility]* Diagnosis History of delivery, currently ([facility])- Primary with history of pre-term labor History of section Other postprocedural status History of pre-eclampsia Personal history of other genital system and obstetric disorders 14 weeks gestation of ([facility]) state, incidental Supervision of high risk in third trimester ([facility]) Unspecified high-risk 28 weeks gestation of ([facility]) state, incidental History of delivery, currently ([facility]) with history of pre-term labor History of pre-eclampsia Personal history of other genital system and obstetric disorders Supervision of high risk in third trimester ([facility])- Primary Unspecified high-risk Desires (vaginal after ) trial ([facility]) Previous delivery, unspecified as to episode of care or not applicable History of section Other postprocedural status History of delivery, currently ([facility]) with history of pre-term labor Anemia complicating , third trimester ([facility]) 36 weeks gestation of ([facility]) state, incidental [facility]* Diagnosis History of delivery, currently ([facility])- Primary with history of pre-term labor History of section Other postprocedural status History of pre-eclampsia Personal history of other genital system and obstetric disorders 14 weeks gestation of ([facility]) state, incidental Supervision of high risk in third trimester ([facility])- Primary Unspecified high-risk Desires (vaginal after ) trial ([facility]) Previous delivery, unspecified as to episode of care or not applicable History of section Other postprocedural status History of delivery, currently ([facility]) with history of pre-term labor Anemia complicating , third trimester ([facility]) 36 weeks gestation of ([facility]) state, incidental * Assessment & Plan Note - Kamar Valdovinos MD - 10/15/2024 10:23 AM EDTAssociated Problem(s): Supervision of high risk in third trimester ([facility]) Orders: URINE OB DIP B/O ROUTINE, GROUP B STREPTOCOCCUS BY PCR * Assessment & Plan Note - Kamar Valdovinos MD - 10/15/2024 10:23 AM EDTAssociated Problem(s): Desires (vaginal after ) trial ([facility]) Patient [facility] if no spontaneous labor by [facility]. Orders: URINE OB DIP B/O * Assessment & Plan Note - Kamar Valdovinos MD - 10/15/2024 10:23 AM EDTAssociated Problem(s): History of section Orders: URINE OB DIP B/O * Assessment & Plan Note - Kamar Valdovinos MD - 10/15/2024 10:23 AM EDTAssociated Problem(s): History of delivery, currently ([facility]) Orders: URINE OB DIP B/O * Assessment & Plan Note - Kamar Valdovinos MD - 10/15/2024 10:23 AM EDTAssociated Problem(s): Anemia complicating , third trimester ([facility]) Continue iron & PNV Orders: URINE OB DIP B/O documented [facility]* Diagnosis History of delivery, currently ([facility])- Primary with history of pre-term labor History of section Other postprocedural status History of pre-eclampsia Personal history of other genital system and obstetric disorders 14 weeks gestation of ([facility]) state, incidental Supervision of high risk in third trimester ([facility])- Primary Unspecified high-risk Desires (vaginal after ) trial ([facility]) Previous delivery, unspecified as to episode of care or not applicable History of section Other postprocedural status History of delivery, currently ([facility]) with history of pre-term labor Anemia complicating , third trimester ([facility]) 36 weeks gestation of ([facility]) state, incidental 37 weeks gestation of ([facility])- Primary state, incidental Supervision of high risk in third trimester ([facility]) Unspecified high-risk History of section Other postprocedural status [facility] Diagnosis History of delivery, currently ([facility])- Primary with history of pre-term labor History of section Other postprocedural status History of pre-eclampsia Personal history of other genital system and obstetric disorders 14 weeks gestation of ([facility]) state, incidental Supervision of high risk in third trimester ([facility])- Primary Unspecified high-risk Desires (vaginal after ) trial ([facility]) Previous delivery, unspecified as to episode of care or not applicable History of section Other postprocedural status History of delivery, currently ([facility]) with history of pre-term labor Anemia complicating , third trimester ([facility]) 36 weeks gestation of ([facility]) state, incidental Supervision of high risk in third trimester ([facility])- Primary Unspecified high-risk 39 weeks gestation of ([facility]) state, incidental History of section Other postprocedural status Desires (vaginal after ) trial ([facility]) Previous delivery, unspecified as to episode of care or not applicable History of delivery, currently ([facility]) with history of pre-term labor Anemia complicating , third trimester ([facility]) History of pre-eclampsia Personal history of other genital system and obstetric disorders [facility]* Here to get [...] takes no medications on a regular basis. [facility] Work Phone: History of Present illness NarrativeHere for f/u anxiety/depression. She states that she does not feel any different. No side effects with the lexapro. We will increase to 10 mg daily and see if things improve.[facility] Work Phone: History of Present illness NarrativeHere for f/u anxiety/depression. She states that she thinks she is feeling a little less tired.[facility] Work Phone: History of Present illness NarrativeHere for f/u anxiety/depression. She states that she thinks she is feeling a little less tired, butotherwise things haven't changed. She continues to struggle with excessive sweating, it is most bothersome on her palms/ hands. She does have an appointment with dermatology, but it's not until the end of the month.[facility] Work Phone: History of Present illness [...] add the buspirone so we will do that.[facility] Work Phone: Hospital Discharge instructions Additional Instructions Please follow-up with SCHOOL LEADER and for repeat blood work as well as evaluation. If you develop a fever over 100.4 or have severe increase in pain or bleeding please return to the ER [facility] Work Phone: Summary Purpose Family History [...] No October 19, 2021 10:47pm Power of Gallery Assistant No October 19 10:47pm Advance Directive Response Recorded Date/ Time Living Will No October 19, 2021 9:47pm Power of Gallery Assistant No October 19 9:47pm Latest Code Status on File Code Status Date Activated Date Inactivated Comments Full Code 04/12/2022 5:41 PM 04/15/2022 8:16 PM Chief Complaint NPV, anxiety2 week f/uanxietyanxiety1 month f/u, medication is making her nauseous Chief Complaint and Reason for Visit Chief Complaint VAG BLEEDING WITH KS EGNANCY Chief Complaint N/V Reason for Referral Specialty Diagnoses / Procedures Referred By Bernardo davidson Referred To Contact Diagnoses Encounter for supervision of high risk in first trimester, antepartum History of pre-eclampsia History of delivery, currently History of section Procedures CONSULT TO MATERNAL MEDI OFFICE/OUTPATIENT NEW HIGH MDM 60 MINUTES Mik Mendoza APRN.CORE BLOWER OPERATOR [address] [place] [address] Referral ID Status Reason Start Date Expiration Date Visits Requested Visits Authorized [id number] Authorized PCP Requested Referral Auto-Generate d Referral 03/28/2024 03/28/2025 1 1 Specialty Diagnoses / Procedures Referred By Contac t Referred To Contact [facility] Diagnoses 7 weeks gestation of Procedures NUCHAL TRANSLUCENCY WHI US NUCHAL TRANSLUCENCY 1ST GESTATION Mik Mendoza APRN.CNP [address] [place] [address] [facility] [address] [place] [id number] Referral ID Status Reason Start Date Expiration Date Visits Requested Visits Authorized [id number] Authorized Auto-Generat ed Referral 03/28/2024 03/28/2025 1 1 Specialty Diagnoses / Procedures Referred By Contac t Referred To Contact [facility] Diagnoses 7 weeks gestation of Procedures OBSTETRIC ULTRASOUND WHI US PREG UTERUS AFTER 1ST TRIMEST GESTATION Mik Mendoza APRN.CORE BLOWER OPERATOR [address] [place] [address] [facility] [address] [place] [address] Referral ID Status Reason Start Date Expiration Date Visits Requested Visits Authorized [id number] Authorized Auto-Generat ed Referral 03/28/2024 03/28/2025 1 1 Additional Source Comments INFORMATION SOURCE (unrecogn ized section and content) DATE CREATED AUTHOR 07/29/2020 [facility] DATE CREATED AUTHOR AUTHOR'S ORGANIZ ATION 05/28/2021 [employer] DATE CREATED AUTHOR AUTHOR'S ORGANIZ ATION 07/04/2021 [facility] DATE CREATED AUTHOR AUTHOR'S ORGANIZ ATION 05/05/2022 [facility] DATE CREATED AUTHOR AUTHOR'S ORGANIZ ATION 04/25/2024 [facility] DATE CREATED AUTHOR AUTHOR'S ORGANIZ ATION 10/30/2024 [facility] Goals (unrecognized section and content) Goals [...] DO Attending Provider, Referrin g Provider Active Vineyard Worker Relationship Specialty Start Date End Date Hodan Luong MD [address] [id number] PCP - General Pediatrics 05/04/15 Vineyard Worker Relationship Specialty [place] [address] [place], [place] [id number] PCP - General Pediatrics 05/04/15 Vineyard Worker Relationship Specialty [place] [address] [place] [address] PCP - General Pediatrics 05/04/15 Vineyard Worker Relationship Specialty Start Date End Date Hodan Luong MD [address] [id number] PCP - General Pediatrics 05/04/15 Vineyard Worker Relationship Specialty Start Date End Date Hodan Luong MD [address] [id number] PCP - General Pediatrics 05/04/15 Vineyard Worker Relationship Specialty Start Date End Date Hodan Luong MD [address] [place] [address] PCP - General Pediatrics 05/04/15 Vineyard Worker Relationship Specialty Start Date End Date Hodan Luong MD [facility] [place] [address] PCP - General Pediatrics 05/04/15 Vineyard Worker Relationship Specialty Start Date End Date Hodan Luong MD [address] [place], [place] [id number] PCP - General Pediatrics 05/04/15 Vineyard Worker Relationship Specialty Start Date End Date Hodan Luong MD [address] [place], [place] [address] PCP - General Pediatrics 05/04/15 Vineyard Worker Relationship Specialty Start Date End Date Hodan Luong MD [address] [place], [place] [address] PCP - General Pediatrics 05/04/15 Vineyard Worker Relationship Specialty Start Date End Date Hodan Luong MD [address] [place] [address] PCP - General Pediatrics 05/04/15 Vineyard Worker Relationship Specialty Start Date End Date Hodan Luong MD [address] [place] [address] PCP - General Pediatrics 05/04/15 Vineyard Worker Relationship Specialty Start Date End Date Hodan Luong MD [address] [place] [address] PCP - General Pediatrics 05/04/15 Vineyard Worker Relationship Specialty Start Date End Date Hodan Luong MD [address] [place] [address] PCP - General Pediatrics 05/04/15 Vineyard Worker Relationship Specialty Start Date End Date Hodan Luong MD [address] [place] [address] PCP - General Pediatrics 05/04/15 Vineyard Worker Relationship Specialty Start Date End Date Hodan Luong MD [address] [place] [address] PCP - General Pediatrics 05/04/15 Vineyard Worker Relationship Specialty Start Date End Date Hodan Luong MD [address] [place] [address] PCP - General Pediatrics 05/04/15 Vineyard Worker Relationship Specialty Start Date End Date Hodan Luong MD [address] [place] [address] PCP - General Pediatrics 05/04/15 Vineyard Worker Relationship Specialty Start Date End Date Hodan Luong MD [address] [facility] [place] [address] PCP - General Pediatrics 05/04/15 Vineyard Worker Relationship Specialty Start Date End Date Hodan Luong MD [address] [place] [address] PCP - General Pediatrics 05/04/15 Vineyard Worker Relationship Specialty Start Date End Date Hodan Luong MD [address] [place] [address] PCP - General Pediatrics 05/04/15 Source Comments (unrecognize d section and content) In the event this informatio n is protected by the Federal Confidentiality of Alcohol and Drug Abuse Patient Records regulations: The Federal rules restrict any use of the information to criminally investigate or prosecute any alcohol or drug abuse patient.[facility] the event this information is protected by the Federal Confidentiality of Alcohol and Drug Abuse Patient Records regulations: The Federal rules restrict any use of the information to criminally investigate or prosecute any alcohol or drug abuse patient.[facility] the event this information is protected by the Federal Confidentiality of Alcohol and Drug Abuse Patient Records regulations: The Federal rules restrict any use of the information to criminally investigate or prosecute any alcohol or drug abuse patient.[facility] the event this information is protected by the Federal Confidentiality of Alcohol and Drug Abuse Patient Records regulations: The Federal rules restrict any use of the information to criminally investigate or prosecute any alcohol or drug abuse patient.[facility] the event this information is protected by the Federal Confidentiality of Alcohol and Drug Abuse Patient Records regulations: The Federal rules restrict any use of the information to criminally investigate or prosecute any alcohol or drug abuse patient.[facility] the event this information is protected by the Federal Confidentiality of Alcohol and Drug Abuse Patient Records regulations: The Federal rules restrict any use of the information to criminally investigate or prosecute any alcohol or drug abuse patient.[facility] the event this information is protected by the Federal Confidentiality of Alcohol and Drug Abuse Patient Records regulations: The Federal rules restrict any use of the information to criminally investigate or prosecute any alcohol or drug abuse patient.[facility] the event this information is protected by the Federal Confidentiality of Alcohol and Drug Abuse Patient Records regulations: The Federal rules restrict any use of the information to criminally investigate or prosecute any alcohol or drug abuse patient.[facility] Center[facility] the event this information is protected by the Federal Confidentiality of Alcohol and Drug Abuse Patient Records regulations: The Federal rules restrict any use of the information to criminally investigate or prosecute any alcohol or drug abuse patient.[facility] the event this information is protected by the Federal Confidentiality of Alcohol and Drug Abuse Patient Records regulations: The Federal rules restrict any use of the information to criminally investigate or prosecute any alcohol or drug abuse patient.[facility] the event this information is protected by the Federal Confidentiality of Alcohol and Drug Abuse Patient Records regulations: The Federal rules restrict any use of the information to criminally investigate or prosecute any alcohol or drug abuse patient.[facility] the event this information is protected by the Federal Confidentiality of Alcohol and Drug Abuse Patient Records regulations: The Federal rules restrict any use of the information to criminally investigate or prosecute any alcohol or drug abuse patient.[facility] Center[facility] the event this information is protected by the Federal Confidentiality of Alcohol and Drug Abuse Patient Records regulations: The Federal rules restrict any use of the information to criminally investigate or prosecute any alcohol or drug abuse patient.[facility] Center[facility] the event this information is protected by the Federal Confidentiality of Alcohol and Drug Abuse Patient Records regulations: The Federal rules restrict any use of the information to criminally investigate or prosecute any alcohol or drug abuse patient.[facility] Center[facility] the event this information is protected by the Federal Confidentiality of Alcohol and Drug Abuse Patient Records regulations: The Federal rules restrict any use of the information to criminally investigate or prosecute any alcohol or drug abuse patient.[facility] Center[facility] the event this information is protected by the Federal Confidentiality of Alcohol and Drug Abuse Patient Records regulations: The Federal rules restrict any use of the information to criminally investigate or prosecute any alcohol or drug abuse patient.[facility] Center[facility] the event this information is protected by the Federal Confidentiality of Alcohol and Drug Abuse Patient Records regulations: The Federal rules restrict any use of the information to criminally investigate or prosecute any alcohol or drug abuse patient.[facility] Center[facility] the event this information is protected by the Federal Confidentiality of Alcohol and Drug Abuse Patient Records regulations: The Federal rules restrict any use of the information to criminally investigate or prosecute any alcohol or drug abuse patient.[facility] Center[facility] the event this information is protected by the Federal Confidentiality of Alcohol and Drug Abuse Patient Records regulations: The Federal rules restrict any use of the information to criminally investigate or prosecute any alcohol or drug abuse patient.[facility] CenterIn the event this information is protected by the Federal Confidentiality of Alcohol and Drug Abuse Patient Records regulations: The Federal rules restrict any use of the information to criminally investigate or prosecute any alcohol or drug abuse patient.[facility] CenterIn the event this information is protected by the Federal Confidentiality of Alcohol and Drug Abuse Patient Records regulations: The Federal rules restrict any use of the information to criminally investigate or prosecute any alcohol or drug abuse patient.[facility] CenterIn the event this information is protected by the Federal Confidentiality of Alcohol and Drug Abuse Patient Records regulations: The Federal rules restrict any use of the information to criminally investigate or prosecute any alcohol or drug abuse patient.[facility] CenterIn the event this information is protected by the Federal Confidentiality of Alcohol and Drug Abuse Patient Records regulations: The Federal rules restrict any use of the information to criminally investigate or prosecute any alcohol or drug abuse patient.[facility] CenterIn the event this information is protected by the Federal Confidentiality of Alcohol and Drug Abuse Patient Records regulations: The Federal rules restrict any use of the information to criminally investigate or prosecute any alcohol or drug abuse patient.[facility] Reason for Visit (unrecogniz ed section and content) Reason Onset Date Comments Care 10/23/2024 Specialty Diagnoses / Procedures Referred By Bernardo davidson Referred To Contact [employer]ER Diagnoses Encounter for general adult medical examination without abnormal findings Office visit Procedures OFFICE/OUTPATIENT ESTABLISHED [facility] 10 MIN Office visit Katherine Brunner MD [address] [place] [address] Phone: tel: fax: OB/Gynecology [address] [place] [address] Phone: tel: Referral ID Status Reason Start Date Expiration Date Visits Requested Visits Authorized [id number] Authorized OON/Self Pay Override 09/19/2024 03/26/2025 99 99 Reason Onset Date Comments Care 10/15/2024 Reason Comments US Specialty Diagnoses / Procedures Referred By Bernardo davidson Referred To Contact [employer] Diagnoses Supervision of high risk in third trimester ([facility]) 28 weeks gestation of ([facility]) History of delivery, currently ([facility]) History of pre-eclampsia Procedures OBSTETRIC ULTRASOUND WHI US PREG UTERUS AFTER 1ST TRIMEST GESTATION Carey Frost APRN.CNM [address] [place] [address] Phone: tel: fax: OB/Gynecology [address] [place] [address] Phone: tel: Referral ID Status Reason Start Date Expiration Date V isits Requested Visits Authorized [id number] Closed Auto-Generate d Referral OON/Self Pay Override 08/28/2024 10/26/2024 1 1 Reason Onset Date Comments Care 09/18/2024 Specialty Diagnoses / Procedures Referred By Contac t Referred To Contact [employer] Diagnoses Supervision of high risk , unspecified, third trimester (HCC) OB Procedures OFFICE/OUTPATIENT ESTABLISHED MOD MDM 30 MIN OB Self Daija Roblero APRN.CNM [address] [place] [address] Phone: tel: fax: Referral ID Status Reason Start Date Expiration Date Visits Requested Visits Authorized [id number] Authorized OON/Self Pay Override 08/21/2024 03/26/2025 99 99 Reason Comments Appointment Reason Comments Patient Update Reason Comments Pre-Eclampsia Specialty Diagnoses / Procedures Referred By Contac t Referred To Contact Diagnoses Preeclampsia, severe, third trimester Severe pre-eclampsia in third trimester Procedures [facility] [id number] ...[facility] is OON but active per Portal eff 03/27/19 ...auth has been initiated via [employer] ...pending auth ref# [id number] ...Both mom and baby will be OON ...emailed [facility] nurses /cc'd Gia Gee MD [address] [place] [address] [address] [place] [address] Referral ID Status Reason Start Date Expiration Date Visits Re quested Visits Authorized [id number] 1 1 Reason Comments Initial OB Visit Reason Comments PRAF Reason Comments US US/MFM consult/OB appt Specialty Diagnoses / Procedures Referred By Contac t Referred To Contact Diagnoses Encounter for supervision of high risk in first trimester, antepartum History of pre-eclampsia History of delivery, currently History of section Procedures CONSULT TO MATERNAL MEDI OFFICE/OUTPATIENT NEW HIGH MDM 60 MINUTES Mik Mendoza APRN.CORE BLOWER OPERATOR [address] [place] [address] Phone: tel: fax: Referral ID Status Reason Start Date Expiration Date V isits Requested Visits Authorized [id number] Closed PCP Requested Referral Auto-Generated Referral 03/28/2024 03/28/2025 1 1 Specialty Diagnoses / Procedures Referred By Contac t Referred To Contact [facility] Diagnoses 7 weeks gestation of Procedures NUCHAL TRANSLUCENCY WHI US NUCHAL TRANSLUCENCY 1ST GESTATION Mik Mendoza APRN.DELISA [address] [place] [address] Phone: tel: fax: [address] [address] Referral ID Status Reason Start Date Expiration Date V isits Requested Visits Authorized [id number] Closed Auto-Generate d Referral 03/28/2024 03/28/2025 1 1 Reason Onset Date Comments Care 05/14/2024 Reason Comments Question (OB Question) Specialty Diagnoses / Procedures Referred By Contac t Referred To Contact [facility] Diagnoses 7 weeks gestation of (HCC) Procedures OBSTETRIC ULTRASOUND WHI US PREG UTERUS AFTER 1ST TRIMEST GESTATION Mik Mendoza APRN.DELISA [address] [place] [address] Phone: tel: fax: [address] [address] Referral ID Status Reason Start Date Expiration Date V isits Requested Visits Authorized [id number] Closed Auto-Generate d Referral 03/28/2024 03/28/2025 1 1 Reason Onset Date Comments Care 07/24/2024 Specialty Diagnoses / Procedures Referred By Contac t Referred To Contact Diagnoses Office visit Procedures Office visit [facility] [address] [place] [address] Phone: tel: [facility] [phone] Referral ID Status Reason Start Date Expiration Date Visits Requested Visits Authorized [id number] Authorized Patient Cleared - Qualified 100% FAS 07/19/2024 10/17/2024 99 99 Reason Onset Date Comments Care 08/21/2024 Reason Onset Date Comments Care 09/04/2024 Reason Onset Date Comments Care 10/02/2024 Reason Onset Date Comments Population Health Navigation Outreach 10/28/2024 Ob/peds Reason Onset Date Comments Care 11/05/2024 Specialty Diagnoses / Procedures Referred By Bernardo t Referred To Contact Diagnoses Office visit Procedures Office visit Self [facility] [place] [address] Referral ID Status Reason Start Date Expiration Date Visits Requested Visits Authorized [id number] Authorized Patient Cleared - Qualified 100% FAS [...] BE BASED ON THE PRIMARY CLINICAL RECORDS. [facility]. provides no warranty or guarantee of the accuracy or completeness of information in this document.
--- OUTSIDE RECORDS SUMMARY | 2024-11-06 05:40 | XMS RPT_ITS | CCD ---
Author Organization [facility] Care Team Providers Care Manager Support Services Name Role Phone Yoli Moreland Unavailable [phone] Unavailable Unavailable GIA MCLAUGHLIN Referring Unavailable GIA MCLAUGHLIN Admitting Unavailable GIA MCLAUGHLIN Attending Unavailable Hodan Luong MD Primary Care Provider [phone] Unavailable Primary Care Provider Unavailabl e Bibiana [...] 1 tablet by mouth once daily. Active Oxwnenbw-Ikl-Ao-Fa () 1 mg Tablet (4 sources) Start: 04-12-2022 take 1 tablet by mouth once Gwoiyhti-Zpr-Ti-Fa () 1 mg Tablet Active TABLET PO April 12, 2022 1:00am Start: 04-12-2022 take 1 tablet by mouth once Pr enatal Pcoxarwu-Bhi-Mr-Fa () 1 mg Tablet Active TABLET PO [...] Start: 04-12-2022 End: 04-15-2022 5-250 mL/hr, IntraVENous, IA N, if patient receiving piggyback infusions and [...] of ; Translations: [32 weeks gestation of ([facility])] Onset: 09-18-2024 Episodic Residual codes; unclassified (1 source) 30 weeks gestation of ; Translations: [30 weeks gestation of ([facility])] Onset: 09-04-2024 Episodic Residual codes; unclassified (1 source) 24 weeks gestation of ; Translations: [24 weeks gestation of ([facility])] Onset: 08-21-2024 Episodic Residual codes; unclassified [...] unspecified trimester; Translations: [History of delivery, currently ([facility])] Onset: 05-13-2024 Episodic Other complications of (1 source) Supervision of high risk , unspecified, second trimester; Translations: [Supervision of high risk in second trimester ([facility])] Onset: 07-24-2024 Episodic Other complications of [...] Range Facility Examination level ultrasound on 10-15-2024 [facility] Radiology Study observation (narrative) [facility] ROUTINE, GROUP B ST REPTOCOCCUS BY PCRon 10-15-2024 ROUTINE, GROUP B STREPTOCOCCUS BY PCR Not detected Normal [facility] Comment on above: Performed By: #### G BPCR ####[facility] LABCLIA [id number] [place] [address] [place] URINE OB DIP B/Oon Glucose Ql (U) Negative Neg mg/dL [facility] Protein.monoclonal (U) [Mass/Vol] Negative Neg mg/dL [facility] CBC panel Auto (Bld)on 10-02 Erythrocyte distribution width (RBC) [Ratio] 12.7 % Normal 11.5-15.0 [facility] Comment on above: Order Comment: Speci men Type: BLOOD SPECIMENOrdering Facility: [facility] Address: [address] [place] [address] Performed By: #### 5 8410-2 ####[facility]ITALNCLIA [id number] [place] [address] [place] Hematocrit (Bld) [Volume fraction] 30.6 % Low 36.0-46.0 [facility] Comment on above: Order Comment: Speci men Type: BLOOD SPECIMENOrdering Facility: [facility] Address: [address] [place] [address] Performed By: #### 5 8410-2 ####[facility] SIVAKUMARWLUISLIA [id number] [place] [address] [place] Hemoglobin (Bld) [Mass/Vol] 10.2 g/dL Low 11.5-15.5 [facility] Comment on above: Order Comment: Speci men Type: BLOOD SPECIMENOrdering Facility: [facility] Address: [address] [place] [address] Performed By: #### 5 8410-2 ####[facility] HOSPITALLUISLIA [id number] [place] [address] [place] MCH (RBC) [Entitic mass] 29.1 pg Normal 26.0-34.0 [facility] Comment on above: Order Comment: Speci men Type: BLOOD SPECIMENOrdering Facility: [facility] Address: [address] [place] [address] Performed By: #### 5 8410-2 ####[facility] CLINICWLUISLIA [id number] [place] [address] [place] MCHC (RBC) [Mass/Vol] 33.3 g/dL Normal 30.5-36.0 [facility] Comment on above: Order Comment: Speci men Type: BLOOD SPECIMENOrdering Facility: [facility] Address: [address] [place] [address] Performed By: #### 5 8410-2 ####[facility]OSPITALNCLIA [id number] [place] [address] [place] MCV (RBC) [Entitic vol] 87.4 fL Normal 80.0-100.0 C [facility] Comment on above: Order Comment: Speci men Type: BLOOD SPECIMENOrdering Facility: [facility] Address: [address] [place] [address] Performed By: #### 5 8410-2 ####[facility] [id number] [place] [address] [place] Nucleated RBC (Bld) [#/Vol] 10*3/uL Normal <0.01 [facility] Comment on above: Order Comment: Speci men Type: BLOOD SPECIMENOrdering Facility: [facility] Address: [address] [place] [address] Performed By: #### 5 8410-2 ####[facility]ITALNCH[facility] [id number] [place] [address] [place] Platelet mean volume (Bld) [Entitic vol] 9.9 fL Normal 9.0-12.7 [facility] Comment on above: Order Comment: Speci men Type: BLOOD SPECIMENOrdering Facility: [facility] Address: [address] [place] [address] Performed By: #### 5 8410-2 ####[facility] [id number] [place] [address] [place] Platelets (Bld) [#/Vol] 226 10*3/uL Normal 150-400 [facility] Comment on above: Order Comment: Speci men Type: BLOOD SPECIMENOrdering Facility: [facility] Address: [address] [place] [address] Performed By: #### 5 8410-2 ####[facility] HOSPITALNCLI [id number] [place] [address] [place] RBC (Bld) [#/Vol] 3.50 10*6/uL Low 3.90-5.20 [facility] Comment on above: Order Comment: Speci men Type: BLOOD SPECIMENOrdering Facility: [facility] Address: [address] [place] [address] Performed By: #### 5 8410-2 ####[facility] PRIYA CHINCLIA [id number] [place] [address] [place] WBC (Bld) [#/Vol] 11.08 10*3/uL High 3.70-11.00 [facility] Comment on above: Order Comment: Speci men Type: BLOOD SPECIMENOrdering Facility: [facility] Address: [address] [place] [address] Performed By: #### 5 8410-2 ####[facility]ITALNCH[facility] [id number] [place] [address] [place] [facility] Examination level ultrasound on 09-19-2024 [facility] Examination level ultrasound on 09-18-2024 Radiology Study observation (narrative) [facility] CBC panel Auto (Bld)on 08-21 Erythrocyte distribution width (RBC) [Ratio] 12.3 % Normal 11.5-15.0 [facility] Comment on above: Order Comment: Speci men Type: BLOOD SPECIMENOrdering Facility: [facility] Address: [address] [place] [address] Performed By: #### 5 8410-2 ####[facility] SIVAKUMARCLARIONNCRICHA [id number] [place] [address] [place] Hematocrit (Bld) [Volume fraction] 31.6 % Low 36.0-46.0 [facility] Comment on above: Order Comment: Speci men Type: BLOOD SPECIMENOrdering Facility: [facility] Address: [address] [place] [address] Performed By: #### 5 8410-2 ####[facility]ITALNCLIA [id number] [place] [address] [place] Hemoglobin (Bld) [Mass/Vol] 10.6 g/dL Low 11.5-15.5 [facility] Comment on above: Order Comment: Speci men Type: BLOOD SPECIMENOrdering Facility: [facility] Address: [address] [place] [address] Performed By: #### 5 8410-2 ####[facility] [id number] [place] [address] [place] MCH (RBC) [Entitic mass] 30.1 pg Normal 26.0-34.0 [facility] Comment on above: Order Comment: Speci men Type: BLOOD SPECIMENOrdering Facility: [facility] Address: [address] [place] [address] Performed By: #### 5 8410-2 ####[facility] [id number] [place] [address] [place] MCHC (RBC) [Mass/Vol] 33.5 g/dL Normal 30.5-36.0 [facility] Comment on above: Order Comment: Speci men Type: BLOOD SPECIMENOrdering Facility: [facility] Address: [address] [place] [address] Performed By: #### 5 8410-2 ####[facility]ITALNCH[facility] [id number] [place] [address] [place] MCV (RBC) [Entitic vol] 89.8 fL Normal 80.0-100.0 C [facility] Comment on above: Order Comment: Speci men Type: BLOOD SPECIMENOrdering Facility: [facility] Address: [address] [place] [address] Performed By: #### 5 8410-2 ####[facility] [id number] [place] [address] [place] Nucleated RBC (Bld) [#/Vol] 10*3/uL Normal <0.01 [facility] Comment on above: Order Comment: Speci men Type: BLOOD SPECIMENOrdering Facility: [facility] Address: [address] [place] [address] Performed By: #### 5 8410-2 ####[facility] NAIDA [id number] [place] [address] [place] Platelet mean volume (Bld) [Entitic vol] 9.3 fL Normal 9.0-12.7 [facility] Comment on above: Order Comment: Speci men Type: BLOOD SPECIMENOrdering Facility: [facility] Address: [address] [place] [address] Performed By: #### 5 8410-2 ####[facility] SIVAKUMARCLARIONDEV [id number] [place] [address] [place] Platelets (Bld) [#/Vol] 272 10*3/uL Normal 150-400 [facility] Comment on above: Order Comment: Speci men Type: BLOOD SPECIMENOrdering Facility: [facility] Address: [address] [place] [address] Performed By: #### 5 8410-2 ####[facility] SIVAKUMARCLARIONNCRICHA [id number] [place] [address] [place] RBC (Bld) [#/Vol] 3.52 10*6/uL Low 3.90-5.20 [facility] Comment on above: Order Comment: Speci men Type: BLOOD SPECIMENOrdering Facility: [facility] Address: [address] [place] [address] Performed By: #### 5 8410-2 ####[facility]PITALNCLIA [id number] [place] [address] [place] WBC (Bld) [#/Vol] 10.84 10*3/uL Normal 3.70-11.00 [facility] Comment on above: Order Comment: Speci men Type: BLOOD SPECIMENOrdering Facility: [facility] Address: [address] [place] [address] [place] [address] Performed By: #### 5 8410-2 ####[facility] PRIYA PASCAL [id number] [place] [id number] [facility] [place] 08-21-2024 CNPN Telephone (OBGYWM) -------- KIERA ARVIZU ([id number]) 1 F Date Time Provider Department 08/21/24 [...] Status:Closed by TYRELL KIDD on 09/03/24 Normal [facility] GESTATIONAL GLUCOSE SCREEN, 1-HOUR, 50 GRAM, NON-FASTINGon 08-21-2024 Glucose [Mass/Vol] 122 mg/dL Normal 74-134 [facility] Comment on above: Order Comment: Speci my Type: BLOOD SPECIMENOrdering Facility: [facility] Address: [address] [place] [address] Result Comment: [facility] Congress of Obstetricians and Gynecologists (Mohsen/Blessing) guidelines state a gestational diabetes mellitus positive screen is made, in women not previously diagnosed with overt diabetes, when the 1 hr plasma glucose level is equal to or above 140 mg/dL. [facility] Clock Mechanic and [facility] [place] recommends a 135 mg/dL cutoff. Performed By: #### G LTGST ####[facility] [id number] [place] [address] [place] Reagin and Treponema pallidu m IgG and IgM [Interp]on 08-21-2024 T. pallidum IgG+IgM IA Ql (S) Non-Reactive Normal Nonreactive [facility] Comment on above: Order Comment: Speci men Type: BLOOD SPECIMENOrdering Facility: [facility] Address: [address] [place] [id number] Performed By: #### 7 3752-8 ####[facility] LABCLIA [id number] [place] [id number] [place] Reagin+T pallidum IgG+IgM Se rPl-Impon 08-21-2024 Reagin and Treponema pallidum IgG and IgM [Interp] Cannot exclude recent Treponemal infection if specimen collected within 7-10 days after appearance of suspect lesions or 2-3 weeks after an exposure. Clinical correlation is required. Normal [facility] Comment on above: Order Comment: Speci men Type: BLOOD SPECIMENOrdering Facility: [facility] Address: [address] [place] [address] Performed By: #### 7 3752-8 ####[facility] LABCLIA [id number] [address] [address] [place] Examination level ultrasound [...] 15 oz EFW by: Hadlock (HC-AC-FL) Extended Plating Stripper 4.5 mm CM 4.3 mm 27% Nicolaides [...] normal LVOT view: normal 3-vessel view: normal 7-ejuxnk-tewdgzr view: normal Heart / Thorax Situs: situs [...] Read By: Darnell Blank M.D. MATERNAL MEDICINE [facility] Radiology Study observation (narrative) Kolby zamudio [facility] [place] 05-20-2024 SHIRAZ Telephone (ALIYAWM) -------- KIERA ARVIZU ([id number]) 1 F Date Time Provider Department 05/20/24 MIK MENDOZA During your visit today, we recorded the following information about you: Katherine Philip, RN 05/20/2024 2:29 PM Signed 15w1d Patient called to inquire about her results of XrnpnisW11. Advised that provider has not reviewed her labs as of yet. Notified of baby's gender per patient and 's request. Katherine Philip RN Allergies As of Date: 05/20/2024 (No Known Allergies) Date Reviewed: 03/28/2024 Reviewed by: Mik Mendoza APRN.MASON TENDER - Fully Assessed Reason for Visit: Question [...] Status:Closed by KATHERINE PHILIP on 05/20/24 Normal [facility] CBC W Auto Differential pane l (Bld)on 05-14-2024 Basophils (Bld) [#/Vol] 0.07 10*3/uL Normal <0.11 [facility] Comment on above: Order Comment: Speci men Type: BLOOD SPECIMENOrdering Facility: [facility] Address: [address] [place] [address] Performed By: #### 5 7021-8 ####[facility] MILLWNCLIA [id number] [place] [address] [place] Basophils/100 WBC (Bld) 0.7 % Normal [facility] Comment on above: Order Comment: Speci men Type: BLOOD SPECIMENOrdering Facility: [facility] Address: [address] [place] [address] Performed By: #### 5 7021-8 ####[facility] CLINICWNCLIA [id number] [place] [address] [place] Differential cell count method Nom (Bld) Auto Normal [facility] Comment on above: Order Comment: Speci men Type: BLOOD SPECIMENOrdering Facility: [facility] Address: [address] [place] [address] Performed By: #### 5 7021-8 ####[facility] CL[facility]ICWNCLIA [id number] [place] [address] [place] Eosinophils (Bld) [#/Vol] 0.63 10*3/uL High <0.46 [facility] Comment on above: Order Comment: Speci men Type: BLOOD SPECIMENOrdering Facility: [facility] Address: [address] [place] [address] Performed By: #### 5 7021-8 ####[facility] MILLTOWNCLIA [id number] [place] [address] [place] Eosinophils/100 WBC (Bld) 5.9 % Normal [facility] Comment on above: Order Comment: Speci men Type: BLOOD SPECIMENOrdering Facility: [facility] Address: [address] [place] [address] Performed By: #### 5 7021-8 ####[facility] MILLWNCLIA [id number] [place] [address] [place] Erythrocyte distribution width (RBC) [Ratio] 12.8 % Normal 11.5-15.0 [facility] Comment on above: Order Comment: Speci men Type: BLOOD SPECIMENOrdering Facility: [facility] Address: [address] [place] [address] Performed By: #### 5 7021-8 ####[facility]OSPITALDEV [id number] [place] [address] [place] Hematocrit (Bld) [Volume fraction] 35.2 % Low 36.0-46.0 [facility] Comment on above: Order Comment: Speci men Type: BLOOD SPECIMENOrdering Facility: [facility] Address: [address] [place] [address] Performed By: #### 5 7021-8 ####[facility] HOSPITALNCCHELSIE [id number] [place] [address] [place] Hemoglobin (Bld) [Mass/Vol] 12.1 g/dL Normal 11.5-15.5 [facility] Comment on above: Order Comment: Speci men Type: BLOOD SPECIMENOrdering Facility: [facility] Address: [address] [place] [address] Performed By: #### 5 7021-8 ####[facility] HOSPITALLUISLIMelanie [id number] [place] [address] [place] Immature granulocytes (Bld) [#/Vol] 0.05 10*3/uL Normal <0.10 [facility] Comment on above: Order Comment: Speci men Type: BLOOD SPECIMENOrdering Facility: [facility] Address: [address] [place] [address] Performed By: #### 5 7021-8 ####[facility]OSPITALNCLIA [id number] [place] [address] [place] Immature granulocytes/100 WBC (Bld) 0.5 % Normal [facility] Comment on above: Order Comment: Speci men Type: BLOOD SPECIMENOrdering Facility: [facility] Address: [address] [place] [address] Performed By: #### 5 7021-8 ####[facility] SIVAKUMARZenyNCRICHA [id number] [place] [address] [place] Lymphocytes (Bld) [#/Vol] 2.16 10*3/uL Normal 1.00-4.00 [facility] Comment on above: Order Comment: Speci men Type: BLOOD SPECIMENOrdering Facility: [facility] Address: [address] [place] [address] Performed By: #### 5 7021-8 ####[facility] [id number] [place] [address] [place] Lymphocytes/100 WBC (Bld) 20.2 % Normal [facility] Comment on above: Order Comment: Speci men Type: BLOOD SPECIMENOrdering Facility: [facility] Address: [address] [place] [address] Performed By: #### 5 7021-8 ####[facility]ITALNCH[facility] [id number] [place] [address] [place] MCH (RBC) [Entitic mass] 30.4 pg Normal 26.0-34.0 [facility] Comment on above: Order Comment: Speci men Type: BLOOD SPECIMENOrdering Facility: [facility] Address: [address] [place] [address] Performed By: #### 5 7021-8 ####[facility] HOSPITALNCA [id number] [place] [address] [place] MCHC (RBC) [Mass/Vol] 34.4 g/dL Normal 30.5-36.0 [facility] Comment on above: Order Comment: Speci men Type: BLOOD SPECIMENOrdering Facility: [facility] Address: [address] [place] [address] Performed By: #### 5 7021-8 ####[facility] MILLWNCLIA [id number] [place] [address] [place] MCV (RBC) [Entitic vol] 88.4 fL Normal 80.0-100.0 C [facility] Comment on above: Order Comment: Speci men Type: BLOOD SPECIMENOrdering Facility: [facility] Address: [address] [place] [address] Performed By: #### 5 7021-8 ####[facility] CAMPUSLIA [id number] [place] [address] [place] Monocytes (Bld) [#/Vol] 0.47 10*3/uL Normal <0.87 [facility] Comment on above: Order Comment: Speci men Type: BLOOD SPECIMENOrdering Facility: [facility] Address: [address] [place] [address] Performed By: #### 5 7021-8 ####[facility] CAMPUSLIA [id number] [place] [address] [place] Monocytes/100 WBC (Bld) 4.4 % Normal C [facility] Comment on above: Order Comment: Speci men Type: BLOOD SPECIMENOrdering Facility: [facility] Address: [address] [place] [address] Performed By: #### 5 7021-8 ####[facility] CAMPUSLIA [id number] [place] [address] [place] Neutrophils (Bld) [#/Vol] 7.31 10*3/uL Normal 1.45-7.50 [facility] Comment on above: Order Comment: Speci men Type: BLOOD SPECIMENOrdering Facility: [facility] Address: [address] [place] [address] Performed By: #### 5 7021-8 ####[facility]AMPUSLIA [id number] [place] [address] [place] Neutrophils/100 WBC (Bld) 68.3 % Normal [facility] Comment on above: Order Comment: Speci men Type: BLOOD SPECIMENOrdering Facility: [facility] Address: [address] [place] [address] Performed By: #### 5 7021-8 ####[facility] [id number] [place] [address] [place] Nucleated RBC (Bld) [#/Vol] 10*3/uL Normal <0.01 [facility] Comment on above: Order Comment: Speci men Type: BLOOD SPECIMENOrdering Facility: [facility] Address: [address] [place] [address] Performed By: #### 5 7021-8 ####[facility]ITALNCH[facility] [id number] [place] [address] [place] Nucleated RBC/100 WBC (Bld) [Ratio] 0.0 /100 WBC Normal [facility] Comment on above: Order Comment: Speci men Type: BLOOD SPECIMENOrdering Facility: [facility] Address: [address] [place] [address] Performed By: #### 5 7021-8 ####[facility] [id number] [place] [address] [place] Platelet mean volume (Bld) [Entitic vol] 9.5 fL Normal 9.0-12.7 [facility] Comment on above: Order Comment: Speci men Type: BLOOD SPECIMENOrdering Facility: [facility] Address: [address] [place] [address] Performed By: #### 5 7021-8 ####[facility] HOSPITALNCLI [id number] [place] [address] [place] Platelets (Bld) [#/Vol] 282 10*3/uL Normal 150-400 [facility] Comment on above: Order Comment: Speci men Type: BLOOD SPECIMENOrdering Facility: [facility] Address: [address] [place] [address] Performed By: #### 5 7021-8 ####[facility] CLINICWNCLIA [id number] [place] [address] [place] RBC (Bld) [#/Vol] 3.98 10*6/uL Normal 3.90-5.20 [facility] Comment on above: Order Comment: Speci men Type: BLOOD SPECIMENOrdering Facility: [facility] Address: [address] [place] [address] Performed By: #### 5 7021-8 ####[facility]PITALNCLIA [id number] [place] [address] [place] WBC (Bld) [#/Vol] 10.69 10*3/uL Normal 3.70-11.00 [facility] Comment on above: Order Comment: Speci men Type: BLOOD SPECIMENOrdering Facility: [facility] Address: [address] [place] [address] Performed By: #### 5 7021-8 ####[facility]OSPITALNCLIA [id number] [place] [address] [place] Comprehensive metabolic 2000 panelon 05-14-2024 Albumin [Mass/Vol] 4.1 g/dL Normal 3.9-4.9 [facility] Comment on above: Order Comment: Speci men Type: BLOOD SPECIMENOrdering Facility: [facility] Address: [address] [place] [address] Performed By: #### 2 4323-8 ####[facility]PITALNCLIA [id number] [place] [address] [place] ALP [Catalytic activity/Vol] 45 U/L Normal 34-123 [facility] Comment on above: Order Comment: Speci men Type: BLOOD SPECIMENOrdering Facility: [facility] Address: [address] [place] [address] Performed By: #### 2 4323-8 ####[facility] PRIYA MILLTOWNCLIA [id number] [place] [address] [place] ALT [Catalytic activity/Vol] 6 U/L Low 7-38 [facility] Comment on above: Order Comment: Speci men Type: BLOOD SPECIMENOrdering Facility: [facility] Address: [address] [place] [address] Performed By: #### 2 4323-8 ####[facility] PRIYA MILLTOWNCLIA [id number] [place] [address] [place] Anion gap [Moles/Vol] 9 mmol/L Normal 8-15 [facility] Comment on above: Order Comment: Speci men Type: BLOOD SPECIMENOrdering Facility: [facility] Address: [address] [place] [address] Performed By: #### 2 4323-8 ####[facility] PRIYA MILLTOWNCLIA [id number] [place] [address] [place] AST [Catalytic activity/Vol] 13 U/L Normal 13-35 [facility] Comment on above: Order Comment: Speci men Type: BLOOD SPECIMENOrdering Facility: [facility] Address: [address] [place] [address] Performed By: #### 2 4323-8 ####[facility] PRIYA MILLTOWNCLIA [id number] [place] [address] [place] Bilirubin [Mass/Vol] 0.2 mg/dL Normal 0.2-1.3 [facility] Comment on above: Order Comment: Speci men Type: BLOOD SPECIMENOrdering Facility: [facility] Address: [address] [place] [address] Performed By: #### 2 4323-8 ####[facility]ICWPRLIA [id number] [place] [address] [place] Calcium [Mass/Vol] 9.3 mg/dL Normal 8.5-10.2 [facility] Comment on above: Order Comment: Speci men Type: BLOOD SPECIMENOrdering Facility: [facility] Address: [address] [place] [address] Performed By: #### 2 4323-8 ####[facility] CLINICWPRLIA [id number] [place] [address] [place] Chloride [Moles/Vol] 105 mmol/L Normal 98-107 [facility] Comment on above: Order Comment: Speci men Type: BLOOD SPECIMENOrdering Facility: [facility] Address: [address] [place] [address] Performed By: #### 2 4323-8 ####[facility] CAMPUSLIA [id number] [place] [address] [place] CO2 [Moles/Vol] 22 mmol/L Normal 22-30 [facility] Comment on above: Order Comment: Speci men Type: BLOOD SPECIMENOrdering Facility: [facility] Address: [address] [place] [address] Performed By: #### 2 4323-8 ####[facility] CLINICWNCLIA [id number] [place] [address] [place] Creatinine [Mass/Vol] 0.64 mg/dL Normal 0.58-0.96 [facility] Comment on above: Order Comment: Speci men Type: BLOOD SPECIMENOrdering Facility: [facility] Address: [address] [place] [address] Performed By: #### 2 4323-8 ####[facility]ITALNCLIA [id number] [place] [address] [place] Creatinine and Glomerular filtration rate.predicted panel (S/P/Bld) 128 mL/min/1.73m??? Normal >=60 [facility] Comment on above: Order Comment: Salma pepe Type: BLOOD SPECIMENOrdering Facility: [facility] Address: [address] [place] [address] Result Comment: Kelly mated Glomerular Filtration Rate [...] actual GFR. Performed By: #### 2 4323-8 ####[facility] [id number] [place] [address] [place] Glucose [Mass/Vol] 81 mg/dL Normal 74-99 [facility] Comment on above: Order Comment: Salma pepe Type: BLOOD SPECIMENOrdering Facility: [facility] Address: [address] [place] [address] Result Comment: The [place] Diabetes Association (ADA) provides guidance for cutoff [...] Standards of Medical Care in Diabetes 2016, [place] Diabetes Association. Diabetes Care. 2016.39(Suppl 1). Performed By: #### 2 4323-8 ####[facility] [id number] [place] [address] [place] Potassium [Moles/Vol] 3.7 mmol/L Normal 3.7-5.1 [facility] Comment on above: Order Comment: Speci men Type: BLOOD SPECIMENOrdering Facility: [facility] Address: [address] [place] [address] Performed By: #### 2 4323-8 ####[facility] PRIYA MILLTOWNCLIA [id number] [place] [address] [place] Protein [Mass/Vol] 6.8 g/dL Normal 6.3-8.0 [facility] Comment on above: Order Comment: Speci men Type: BLOOD SPECIMENOrdering Facility: [facility] Address: [address] [place] [address] Performed By: #### 2 4323-8 ####[facility] MILLDAVIDWLUISLIA [id number] [place] [address] [place] Sodium [Moles/Vol] 136 mmol/L Normal 136-144 [facility] Comment on above: Order Comment: Speci men Type: BLOOD SPECIMENOrdering Facility: [facility] Address: [address] [place] [address] Performed By: #### 2 4323-8 ####[facility] MILLTOWNCLIA [id number] [place] [address] [place] Urea nitrogen [Mass/Vol] 12 mg/dL Normal 7-21 [facility] Comment on above: Order Comment: Speci men Type: BLOOD SPECIMENOrdering Facility: [facility] Address: [address] [place] [address] Performed By: #### 2 4323-8 ####[facility] MILLTOWNCLIA [id number] [place] [address] [place] nuchal translucency me asured by USon 05-14-2024 Indication First trimester anatomic survey History of preeclampsia Impression The patient is referred for a first trimester anatomy scan including nuchal translucency measurement as clinically indicated. - Single, live, intrauterine . - Vaughn rump length measurement and biometry are consistent [...] view: visualized 4-chamber view with color: visualized 3-vxtfzl-umwxhpq view: suboptimal Abdominal cord insertion: normal Stomach: [...] Read By: Darnell Blank M.D. MATERNAL MEDICINE [facility] Radiology Study observation (narrative) [facility] HBV surface Ag Ser Qlon 04-27 HBV surface Ag Ql (S) Negative Normal Negative [facility] Comment on above: Order Comment: Speci men Type: BLOOD SPECIMENOrdering Facility: [facility] Address: [address] [place] [address] Performed By: #### 5 195-3, 96067-7, 47751-0 ####[facility] LABCLIA [id number] [place] [address] [place] HCV Ab Ser Qlon 05-14-2024 HCV Ab Ql (S) Negative Normal Negative [facility] Comment on above: Order Comment: Speci men Type: BLOOD SPECIMENOrdering Facility: [facility] Address: [address] [place] [address] Result Comment: The result suggests no evidence of active infection with Hepatitis C virus. Should recent infection be suspected, repeat testing may be considered 4-6 weeks after this draw. Performed By: #### 1 6128-1 ####[facility] LABCLIA [id number] [place] [address] [place] HIV 1+2 Ab IA Qlon HIV 1 and 2 Ab IA.rapid Nom (S/P/Bld) Normal [facility] Comment on above: Order Comment: Speci men Type: BLOOD SPECIMENOrdering Facility: [facility] Address: [address] [place] [address] Result Comment: Test not indicated. Performed By: #### 5 195-3, 21728-2, 59934-0 ####[facility] LABCLIA [id number] [place] [address] [place] HIV 1+2 Ab+HIV1 p24 Ag IA Ql Non-Reactive Normal Nonreactive [facility] Comment on above: Order Comment: Speci men Type: BLOOD SPECIMENOrdering Facility: [facility] Address: [address] [place] [address] Performed By: #### 5 195-3, 39168-7, 69440-3 ####[facility] LABIA [id number] [place] [address] [place] HIV immunoassay testing algorithm interpretation (S/P/Bld) [Interp] Normal [facility] Comment on above: Order Comment: Speci men Type: BLOOD SPECIMENOrdering Facility: [facility] Address: [address] [place] [address] Result Comment: No e vidence of HIV-1 or HIV-2 infection. Should recent infection be suspected, repeat testing may be considered 2-3 weeks after this draw. [place] Rev. Code 3701.243(E): This information has been [...] or diagnoses. Performed By: #### 5 195-3, 72965-9, 53544-4 ####[facility] LABCLIA [id number] [place] [address] [place] HbA1c (Bld)on 05-14-2024 Average glucose Estimated from glycated hemoglobin (Bld) [Mass/Vol] 85 mg/dL Normal [facility] Comment on above: Order Comment: Speci men Type: BLOOD SPECIMENOrdering Facility: [facility] Address: [address] [place] [address] Result Comment: eAG: (Estimated average glucose) is a calculated value from HgbA1c and is real estate representative of the average blood glucose level in the last 2-3 month period. Performed By: #### 5 5454-3 ####[facility] LABCLIA [id number] [place] [address] [place] HbA1c (Bld) [Mass fraction] 4.6 % Normal 4.3-5.6 [facility] Comment on above: Order Comment: Speci men Type: BLOOD SPECIMENOrdering Facility: [facility] Address: [address] [place] [address] Result Comment: Amer [place] Diabetes Association guidelines indicate that patients with HgbA1c in the range 5.7-6.4% are at increased risk for development of diabetes, and intervention by lifestyle modification may be beneficial. HgbA1c greater or equal to 6.5% is considered diagnostic of diabetes. Performed By: #### 5 5454-3 ####[facility] LABCLIA [id number] [place] [address] [place] [id number] PLUSon 05-14-2024 Cell-free DNA./Cell-free DNA.total Dosage of chromosome-specific cfDNA (cfDNA) [Molar fraction] 16% Normal [facility] Comment on above: Order Comment: Speci men Type: BLOOD SPECIMENOrdering Facility: [facility] Address: [address] [place] [address] Performed By: #### M AT21 ####[facility] LABCLIA [id number] [place] [address] Chr 13+18+21+X+Y aneuploidy Dosage of chromosome-specific cfDNA Ql (cfDNA) Negative Normal [facility] Comment on above: Order Comment: Speci men Type: BLOOD SPECIMENOrdering Facility: [facility] Address: [address] [place] [address] Performed By: #### M AT21 ####[facility]Vari[facility] DiagnosticsM[facility] LABCLIA [id number] [place] [address] Chr 21 trisomy Dosage of chromosome-specific cfDNA Ql (cfDNA) Negative Normal [facility] Comment on above: Order Comment: Speci men Type: BLOOD SPECIMENOrdering Facility: [facility] Address: [address] [place] [address] Performed By: #### M AT21 ####[facility] LABCLIA [id number] [place] [address] Chr X and Y aneuploidy risk Sequencing Ql (cfDNA) [Interp] Not detected Normal [facility] Comment on above: Order Comment: Speci men Type: BLOOD SPECIMENOrdering Facility: [facility] Address: [address] [place] [address] Result Comment: Not Detected Not Detected Performed By: #### M AT21 ####[facility] LABCLIA [id number] [place] [address] Citation Miguelito (Reference lab test) Comment Normal [facility] Comment on above: Order Comment: Speci men Type: BLOOD SPECIMENOrdering Facility: [facility] Address: [address] [place] [address] Result Comment: 1. P arnoldo COONEY, et al. Soco Med. 2012;14(3):296-305. 2. Jama HOWARD et al. Prenat Diag. 2013;33(6):591-597. 3. Apple C, et al. Clin Chem. 2015 Apr;61(4):608-616. 4. Negin COONEY, et al. Soco Med. 2011;13(11):913-920. 5. ACOG/SMFM Practice Bulletin No. 226, Dec 2019. Performed By: #### M AT21 ####[facility] LABCLIA [id number] [place] [address] Gestational age Estimated from conception date Lui Normal [facility] Comment on above: Order Comment: Speci men Type: BLOOD SPECIMENOrdering Facility: [facility] Address: [address] [place] [address] Performed By: #### M AT21 ####[facility] LABCLIA [id number] [place] [address] GESTATIONALAGE AGE > OR = 9W Yes Normal [facility] Comment on above: Order Comment: Speci men Type: BLOOD SPECIMENOrdering Facility: [facility] Address: [address] [place] [address] Performed By: #### M AT21 ####[facility] LABCLIA [id number] [place] [address] Laboratory comment Miguelito (Report) Comment Normal [facility] Comment on above: Order Comment: Specgreyson pepe Type: BLOOD SPECIMENOrdering Facility: [facility] Address: [address] [place] [address] Result Comment: The MaterniT(R) 21 PLUS laboratory-developed test (LDT) analyzes circulating cell-free DNA from a maternal blood sample. This test is used for screening purposes and not diagnostic. Clinical correlation is recommended. Validation data on twin pregnancies is limited and the ability of this test to detect aneuploidy in higher multiple gestations has not yet been validated. Performed By: #### M AT21 ####[employer] LABCLIA [id number] [place] [id number] convention services director name Nom (Provider) Comment Normal [facility] Comment on above: Order Comment: Speci my Type: BLOOD SPECIMENOrdering Facility: [facility] Address: [address] [place] [address] Result Comment: This specimen showed an expected representation of chromosome 21, 18 and 13 material. Clinical correlation is suggested. Comment Glen Salvador MD, PhD, Director, [employer] Performed By: #### M AT21 ####[facility] LABCLIA [id number] [place] [id number] LIMITATIONS OF THE TEST Comment Normal [facility] Comment on above: Order Comment: Salma pepe Type: BLOOD SPECIMENOrdering Facility: [facility] Address: [address] [place] [address] Result Comment: Jaimee dickerson the results of [...] and Fragmin(R)). Performed By: #### M AT21 ####[facility] LABCLIA [id number] [facility] [place] [address] Monosomy X risk Dosage of chromosome-specific cfDNA Ql (Plasma cell-free+WBC DNA) [Interp] Not detected Normal [facility] Comment on above: Order Comment: Speci men Type: BLOOD SPECIMENOrdering Facility: [facility] Address: [address] [place] [address] Performed By: #### M AT21 ####[facility] LABCLIA [id number] [place] [address] NEGATIVE PREDICTIVE VALUE Note Normal [facility] Comment on above: Order Comment: Salma pepe Type: BLOOD SPECIMENOrdering Facility: [facility] Address: [address] [place] [address] Result Comment: The Negative Predictive Value (NPV) for trisomy 21, 18, and 13 is greater than 99%. The NPV for SCA and ESS cannot be calculated as SCA and ESS are only reported when an abnormality is detected. Performed By: #### M AT21 ####[facility] LABCLIA [id number] [place] [address] PERFORMANCE CHARACTERISTICS Note Normal [facility] Comment on above: Order Comment: Salma pepe Type: BLOOD SPECIMENOrdering Facility: [facility] Address: [address] [place] [address] Result Comment: ! Sex ! Accuracy: 99.4% [...] ! ! ! * As reported in [facility] database nstd37 [https://www.ncbi.nlm.nih.gov/dbvar/studies/nstd37/ ] # Estimated Sensitivity. [...] gestation only. Performed By: #### M AT21 ####[employer] LABStockStreamsIA [id number] [place] [address] POSITIVE PREDICTIVE VALUE N/A Normal [facility] Comment on above: Order Comment: Speci men Type: BLOOD SPECIMENOrdering Facility: [facility] Address: [address] [place] [address] Performed By: #### M AT21 ####[facility] LABCLIA [id number] [place] [address] Reference Lab Test Method Comment Normal [facility] Comment on above: Order Comment: Speci men Type: BLOOD SPECIMENOrdering Facility: [facility] Address: [address] [place], [place] [address] Result Comment: See Notes Circulating cell-free DNA [...] and 22. Performed By: #### M AT21 ####[employer] [id number] [place] [address] Service comment (Unsp spec) [Interp] Comment Normal [facility] Comment on above: Order Comment: Speci men Type: BLOOD SPECIMENOrdering Facility: [facility] Address: [address] [place], [place] [address] Result Comment: See Notes [employer] is a subsidiary of [employer], using the brand [employer]. This test was developed and its performance characteristics determined by [employer]. It has not been cleared or approved by the Food and Drug Administration. This laboratory is certified under the Clinical Laboratory Improvement Amendments (CLIA) as qualified to perform high complexity clinical laboratory testing and accredited by the College of [place] Pathologists (CAP). If there is future clinical need for adding MaterniT GENOME testing, this specimen will be available until term. [facility] samples will not be retained beyond 60 days. [facility] patients will have to send a new sample for re-sequencing ([facility] Test Code: [id number]). Performed By: #### M AT21 ####[facility] LABStockStreamsIA [id number] [place] [address] Sex Dosage of chromosome-specific cfDNA Nom (cfDNA) Comment Normal [facility] Comment on above: Order Comment: Speci men Type: BLOOD SPECIMENOrdering Facility: [facility] Address: [address] [place] [address] Result Comment: Cons istent with Female Performed By: #### M AT21 ####[facility] LABCLIA [id number] [place] [address] Test performance information Miguelito (Unsp spec) Comment Normal [facility] Comment on above: Order Comment: Speci men Type: BLOOD SPECIMENOrdering Facility: [facility] Address: [address] [place] [address] Result Comment: The performance characteristics of the MaterniT(R) 21 PLUS laboratory-developed test (LDT) have been determined in a clinical validation study with women at increased risk for chromosomal aneuploidy.[1-4] Performed By: #### M AT21 ####[facility] LABCLIA [id number] [place] [address] Trisomy 13 risk Dosage of chromosome-specific cfDNA Ql (cfDNA) [Interp] Negative Normal [facility] Comment on above: Order Comment: Speci men Type: BLOOD SPECIMENOrdering Facility: [facility] Address: [address] [place] [address] Performed By: #### M AT21 ####[facility] LABCLIA [id number] [place] [address] Trisomy 18 risk Dosage of chromosome-specific cfDNA Ql (Plasma cell-free+WBC DNA) [Interp] Negative Normal [facility] Comment on above: Order Comment: Speci men Type: BLOOD SPECIMENOrdering Facility: [facility] Address: [address] [place] [address] Performed By: #### M AT21 ####[facility] LABCLIA [id number] [place] [address] Prot/Creat Uron 05-14-2024 Protein/Creatinine (U) [Mass ratio] 0.06 mg/mg Normal <0.15 [facility] Comment on above: Order Comment: Speci men Type: URINE SPECIMENOrdering Facility: [facility] Address: [address] [place] [address] Result Comment: Adul t Proteinuria Categories: <0.15 mg/mg is considered normal to mildly increased 0.15 - 0.50 mg/mg is considered moderately increased >0.50 mg/mg is considered severely increased KDIGO. (2013). KDIGO 2012 Clinical Practice Guideline for the Evaluation and Management of Chronic Kidney Disease. Official Journal of the International Society of Nephrology, 3(1), 1-150. Performed By: #### 2 890-2 ####[facility]ATORYCLIA [id number] [place] [id number] [place] Protein/Creatinine (U) [Mass ratio]on 05-14-2024 Creatinine (U) [Mass/Vol] 215.9 mg/dL Normal 20.0-300.0 [facility] Comment on above: Order Comment: Speci men Type: URINE SPECIMENOrdering Facility: [facility] Address: [address] [place] [address] Performed By: #### 2 890-2 ####[facility] LABORATORYCLIA [id number] [address] STATES OF [facility] Protein (U) [Mass/Vol] 12 mg/dL Normal 0-20 [facility] Comment on above: Order Comment: Speci men Type: URINE SPECIMENOrdering Facility: [facility] Address: [address] [place] [address] Performed By: #### 2 890-2 ####[facility] LABORATORYCLIA [id number] [address] RUBELLA IGG ANTIBODYon 05-14 RUBELLA IGG AB, QUAL Positive Normal Positive [facility] Comment on above: Order Comment: Speci men Type: BLOOD SPECIMENOrdering Facility: [facility] Address: [address] [place] [address] Result Comment: The result suggests recent or past exposure to Rubella virus or history of Rubella vaccination. Positive result may also be seen due to presence of passively-transferred antibodies. Please correlate with patient's history. Performed By: #### R UBIGG ####[facility] LABCLIA [id number] [address] [id number] [address] [place] Reagin and Treponema pallidu m IgG and IgM [Interp]on 05-14-2024 T. pallidum IgG+IgM IA Ql (S) Non-Reactive Normal Nonreactive [facility] Comment on above: Order Comment: Salma pepe Type: BLOOD SPECIMENOrdering Facility: [facility] Address: [address] [place] [address] Performed By: #### 5 195-3, 33598-6, 31952-4 ####[facility] LABIA [id number] [place] [address] [place] Reagin+T pallidum IgG+IgM Se rPl-Impon 05-14-2024 Reagin and Treponema pallidum IgG and IgM [Interp] Cannot exclude recent Treponemal infection if specimen collected within 7-10 days after appearance of suspect lesions or 2-3 weeks after an exposure. Clinical correlation is required. Normal [facility] Comment on above: Order Comment: Salma pepe Type: BLOOD SPECIMENOrdering Facility: [facility] Address: [address] [place] [address] Performed By: #### 5 195-3, 73966-1, 53980-5 ####[facility] LABIA [id number] [place] [id number] [place] TSH SerPl-aCncon 05-14-2024 TSH Qn 2.570 m[IU]/L Normal 0.270-4.200 [facility] Comment on above: Order Comment: Salma pepe Type: BLOOD SPECIMENOrdering Facility: [facility] Address: [address] [place] [address] Result Comment: If t he patient is , TSH reference range varies by gestational period: First Trimester (weeks 9-12): 0.180-2.990 mIU/L Second Trimester: 0.110-3.980 mIU/L Third Trimester: 0.480-4.710 mIU/L Dennis Grimaldo et al. A Practical Approach for the Verifications and Determination of Site- and Trimester-Specific Reference Intervals for Thyroid Function tests in . Thyroid, 2019:29:3:412-420. Micky Dickerson, et al. 2017 Guidelines of the [place] Thyroid Association for the Diagnosis and Management of Thyroid Disease during and the . Thyroid, 2017:27:3:315-389. Performed By: #### 3 016-3 ####[facility] LABCLIA [id number] [place] [address] [place] TYPE + SCREEN PRENATALon ABO A Normal [facility] Comment on above: Order Comment: Speci men Type: BLOOD SPECIMENOrdering Facility: [facility] Address: [address] [place] [address] Performed By: #### T SPN ####[facility] BLOOD BANKIA [id number] [address] [place] Rh Nom (Bld) Positive Normal [facility] Comment on above: Order Comment: Speci men Type: BLOOD SPECIMENOrdering Facility: [facility] Address: [address] [place] [address] Performed By: #### T SPN ####[facility] BLOOD BANKIA [id number] [address] TYPE AND SCREEN EXPIRATION 05/17/2024 23:59 Normal [facility] Comment on above: Order Comment: Speci men Type: BLOOD SPECIMENOrdering Facility: [facility] Address: [address] [place] [address] Performed By: #### T SPN ####[facility] BLOOD BANKIA [id number] [place] [address] [place] CNCOon 04-02-2024 CNCO Letter Text Normal [facility] CNPNon 03-29-2024 CNPN Telephone ([employer]) -------- KIERA ARVIZU ([id number]) 1 F Date Time Provider Department 03/29/24 VAUGHN HOOD During your visit today, we recorded the following information about you: Vaughn Hood RN 03/29/2024 9:45 AM Signed 1st risk assessment form submitted 03/29/2024 7w 5d today Allergies As of Date: 03/29/2024 (Not on File) Date Reviewed: 03/28/2024 Reviewed by: Mik Mendoza APRN.MASON TENDER - Fully Assessed Reason for Visit: PRAF [...] Status:Closed by VAUGHN HOOD on 03/29/24 Normal [facility] Bacteria Ur Culton Bacteria identified Cx Nom (U) ORGANISM ID: 1 <10,000 CFU/ml Normal urogenital ania Normal [facility] Comment on above: Performed By: #### 6 30-4 ####[facility] LABCLIA [id number] [place] [address] [place] C. trachomatis+N. gonorrhoea e DNA ÁNGEL+probe Ql (Unsp spec)on 03-28-2024 C. trachomatis rRNA ÁNGEL+probe Ql (Unsp spec) Not detected Normal Not detected [facility] Comment on above: Order Comment: Speci men Type: SWABOrdering Facility: [facility] Address: [address] [place] [address] Performed By: #### 3 6902-5 ####[facility] LABCLIA [id number] [place] [address] [place] N. gonorrhoeae rRNA ÁNGEL+probe Ql (Unsp spec) Not detected Normal Not detected [facility] Comment on above: Order Comment: Speci men Type: SWABOrdering Facility: [facility] Address: [address] [place] [address] Performed By: #### 3 6902-5 ####[facility] LABCLIA [id number] [place] [address] [place] HIGH RISK HUMAN PAPILLOMA CANDIDA (HPV), PCR FOR DETECTION AND GENOTYPINGon 03-28-2024 HPV 16 Ag Ql (Unsp spec) Not detected Normal Not detected [facility] Comment on above: Order Comment: Speci men Type: FLUID SPECIMENOrdering Facility: [facility] Address: [address] [place] [address] Performed By: #### H PVHRT ####[facility] LABIA [id number] [place] [address] [place] HPV 18 Ag Ql (Unsp spec) Not detected Normal Not detected [facility] Comment on above: Order Comment: Speci men Type: FLUID SPECIMENOrdering Facility: [facility] Address: [address] [place] [address] Performed By: #### H PVHRT ####[facility] LABIA [id number] [place] [address] [place] HPV 31+33+35+39+45+51+52+56 +58+59+66+68 DNA ÁNGEL+probe Ql (Cvx) Not detected Normal Not detected [facility] Comment on above: Order Comment: Speci men Type: FLUID SPECIMENOrdering Facility: [facility] Address: [address] [place] [address] Result Comment: High Risk HPV Other Type includes HPV types 31, 33, 35, 39, 45, 51, 52, 56, 58, 59, 66 and 68. Performed By: #### H PVHRT ####[facility] LABCLIA [id number] [address] PAP TESTon 03-28-2024 ADEQUACY Satisfactory for interpretation. Normal [facility] Comment on above: Order Comment: Speci men Type: FLUID SPECIMENOrdering Facility: [facility] Address: [address] [place] [address] Performed By: #### L [id number] ####[facility] [id number] [address] LABCLIA [id number] [address] [place] CASE REPORT Normal [facility] Comment on above: Order Comment: Speci men Type: FLUID SPECIMENOrdering Facility: [facility] Address: [address] [place] [address] Result Comment: Gyne cologic Cytology Report Case: [id number] Authorizing Provider: Mik Mendoza APRN.MASON TENDER Collected: 03/28/2024 10:27 AM Ordering Location: OB/Gynecology Received: 03/28/2024 11:33 AM First Screen: Janine Mckeon, CT, ASCP Pathologist: Evelina Marin MD Specimen: Pap Test, ThinPrep, Cervix Performed By: #### L [id number] ####[facility] [id number] [address] LABCLIA [id number] [address] [place] CLINICAL HISTORY, CYTOLOGY, CHIEF WRITER (Indicate Weeks) Normal [facility] Comment on above: Order Comment: Speci men Type: FLUID SPECIMENOrdering Facility: [facility] Address: [address] [place] [address] Performed By: #### L [id number] ####[facility]ATORYCLIA [id number] [place] [id number] [facility] LABCLIA [id number] [address] [place] FINAL PERFORMING LAB Normal [facility] Comment on above: Order Comment: Speci men Type: FLUID SPECIMENOrdering Facility: [facility] Address: [address] [place] [address] Result Comment: Tech nical component, senior cognos developer screening performed at [facility], [address] [facility], [place] [id number] CLIA# [id number] Diagnostic interpretation performed at [facility], [address] [facility], [place] [id number] CLIA# [id number] Front Office Representative: Lorelei Barrera M.D. Performed By: #### L [id number] ####[facility]ATORYCLIA [id number] [address] LABCLIA [id number] [address] STATES OF [facility] INTERPRETATION, CYTOLOGY, CHIEF WRITER Abnormal [facility] Comment on above: Order Comment: Speci men Type: FLUID SPECIMENOrdering Facility: [facility] Address: [address] [place] [address] Result Comment: Atyp ical squamous cells of undetermined significance (ASC-US). Performed By: #### L [id number] ####[facility] [id number] [address] LABCLIA [id number] [place] [address] [place] LMP 02/04/2024 Normal [facility] Comment on above: Order Comment: Speci men Type: FLUID SPECIMENOrdering Facility: [facility] Address: [address] [place] [address] Performed By: #### L [id number] ####[facility] [id number] [address] LABCLIA [id number] [place] [address] [place] PAP DISCLAIMER COMMENT The Pap Smear is a screening test for cervical cancer. False negative results occur with all screening tests, emphasizing the need for rescreening at recommended intervals, and clinical correlation. Normal [facility] Comment on above: Order Comment: Speci men Type: FLUID SPECIMENOrdering Facility: [facility] Address: [address] [place] [address] Performed By: #### L [id number] ####[facility]ORYCLIA [id number] [address] STATES [facility] LABCLIA [id number] [place] [address] [place] PAP GENERAL CATEGORIZATION Epithelial Cell Abnormality Normal [facility] Comment on above: Order Comment: Speci men Type: FLUID SPECIMENOrdering Facility: [facility] Address: [address] [place] [address] Performed By: #### L [id number] ####[facility]ORYCLIA [id number] [address] STATES [facility] LABCLIA [id number] [place] [address] [place] PAP TRAVELING ENGINEER COMMENT This specimen has be en analyzed by the ThinPrep Imaging System, an automated imaging and review system, which assists the laboratory in evaluating cells on ThinPrep Pap tests. Following automated imaging, selected de oliveira from every slide are reviewed by a senior cognos developer. Normal [facility] Comment on above: Order Comment: Speci men Type: FLUID SPECIMENOrdering Facility: [facility] Address: [address] [place] [address] Performed By: #### L [id number] ####[facility]ATORYCLIA [id number] [place] [id number] [place] [facility] LABCLIA [id number] [facility] [id number] OF [facility] POC FRUIT ROOM HAND ULTRASOUNDon 03-28-19 25 Indication Viability; confirm cardiac [...] Read By: Mik Mendoza NP MATERNAL MEDICINE [facility] Radiology [facility]narrative[facility] 02-28-2024 CNPN Telephone (OBGYWM) -------- KIERA ARVIZU ([id number]) 1 F Date Time Provider Department 02/28/24 DEB SIMMONS During your visit today, we recorded the following information about you: Nandini Hardin 02/28/2024 11:26 AM Signed Patient wanted to let the office know she has been trying to request her records from [facility] for over a month now, and she [...] Status:Closed by KATHERINE PHILIP on 02/28/24 Normal [facility] Zinc, Plasma or Serumon 10-2 ZINC,PLASMA/SER 73 ug/dL Normal 44-115 [facility] Comment on above: Order Comment: Test( s) [id number], Plasma or Serum was developed and its performance characteristics determined by [facility]. It has not been cleared or approved by the Food and Drug Administration. Result Comment: Dete ction Limit = 5 Performed at: [address] [id number] Shot Polisher And Inspector: Christoph Thomas MD, Phone: [phone] Performed By: #### L 3300.9900, L100.0100, L503.6550, L3100.7950, L3100.5500, L3300.0960, L500.4050 #### [facility] [address] [place], [address] Anti-dsDNA Abon 01-16-2024 ANTI-DNA (DS)AB 1 IU/mL Normal 0-9 [facility] Comment on above: Order Comment: Speci my Comment: A duplicate report has been generated due to demographic Specimen Comment: updates. Result Comment: Nega tive <5 Equivocal 5 - 9 Positive >9 Performed By: #### L 3300.9900, L100.0100, L503.6550, L3100.7950, L3100.5500, L3300.0960, L500.4050 #### [facility] [address] [place], [place], [id number] Antinuclear Antibody, IFAon 01-16-2024 LUCIA, IFA Negative Normal . [facility] Comment on above: Order Comment: Salma pepe Comment: A duplicate report has been generated due to demographic Specimen Comment: updates. Result Comment: Nega tive <1:80 Borderline 1:80 Positive >1:80 ICAP nomenclature: AC-0 For more information about Hep-2 cell patterns use ANApatterns.org, the official website for the International Consensus on Antinuclear Antibody (LUCIA) Patterns (ICAP). Performed at: [facility] [address] [id number] Shot Polisher And Inspector: Wei Smith PhD, Phone: [phone] Performed at: [facility] [address] [id number] Shot Polisher And Inspector: Christoph Thomas MD, Phone: [phone] Performed By: #### L 3300.9900, L100.0100, L503.6550, L3100.7950, L3100.5500, L3300.0960, L500.4050 #### [facility] [address] [place], [place], [id number] Vitamin D 1,25-Dihydroxyon 1 VIT D 1,25 DIHY 33.0 pg/mL Normal 24.8-81.5 [facility] Comment on above: Order Comment: Speci my Comment: A duplicate report has been generated due to demographic Specimen Comment: updates. Performed By: #### L 3300.9900, L100.0100, L503.6550, L3100.7950, L3100.5500, L3300.0960, L500.4050 #### [facility] [address] [place], [address] L3300.0940on 01-13-2024 VIT D,25 HYDROX Normal [facility] Comment on above: Result Comment: TEST RESULTS LIMITS Vitamin D, 25-Hydroxy 30.5 ng/mL 30.0-100.0 Vitamin D deficiency has been defined by the [place] [employer] and an Endocrine Society practice guideline as a level of serum 25-OH vitamin D less than 20 ng/mL (1,2). The Endocrine Society went on to further define vitamin D insufficiency as a level between 21 and 29 ng/mL (2). 1. IOM ([place] [employer]). 2010. Dietary reference intakes for calcium and D. [place]: The National Academies Press. 2. Laura MF, Jimi NC, Antonio BROWN, et al. Evaluation, treatment, and prevention of vitamin D deficiency: an Endocrine Society clinical practice guideline. JCEM. 2011 Sep; 96(7):1911-30. TESTING PERFORMED AT [facility]. ORIGINAL REPORT ON FILE IN LAB CONTAINS ADDITIONAL TEST SITE INFORMATION. Performed By: #### L 3300.0940 #### [facility] [address] [place], [address] CBC W/Diff, Automatedon 10- Absolute Lymph 2.92 X10 3/uL Normal 0.83-4.51 [facility] Comment on above: Performed By: #### L 3300.9900, L100.0100, L503.6550, L3100.7950, L3100.5500, L3300.0960, L500.4050 #### [facility] [address] [place], [address] Absolute Neut 3.6 X10 3/uL Normal 2.0-7.7 [facility] Comment on above: Performed By: #### L 3300.9900, L100.0100, L503.6550, L3100.7950, L3100.5500, L3300.0960, L500.4050 #### [facility] [address] [place], [address] Basophils/100 WBC (Bld) 0.8 % Normal 0-[address] [facility] Comment on above: Performed By: #### L 3300.9900, L100.0100, L503.6550, L3100.7950, L3100.5500, L3300.0960, L500.4050 #### [facility] [address] [place], [address] Eosinophils/100 WBC (Bld) 5.2 % High 0-5 [facility] Comment on above: Performed By: #### L 3300.9900, L100.0100, L503.6550, L3100.7950, L3100.5500, L3300.0960, L500.4050 #### [facility] [address] [place], [address] Erythrocyte distribution width (RBC) [Ratio] 12.6 % Normal 11.6-14.6 [facility] Comment on above: Performed By: #### L 3300.9900, L100.0100, L503.6550, L3100.7950, L3100.5500, L3300.0960, L500.4050 #### [facility] [address] [place], [address] Hematocrit (Bld) [Volume fraction] 40.2 % Normal 37-47 [facility] Comment on above: Performed By: #### L 3300.9900, L100.0100, L503.6550, L3100.7950, L3100.5500, L3300.0960, L500.4050 #### [facility] [address] [place], [address] Hemoglobin (Bld) [Mass/Vol] 13.1 g/dL Normal 12.0-15.0 [facility] Comment on above: Performed By: #### L 3300.9900, L100.0100, L503.6550, L3100.7950, L3100.5500, L3300.0960, L500.4050 #### [facility] [address] [facility] [place], [address] IG% 0.100 Normal 0.0-0.9 [facility] Comment on above: Result Comment: IG% - Immature Granulocytes (promyelocytes, myelocytes and metamyelocytes) > 1% indicates that a LEFT SHIFT is Present. Performed By: #### L 3300.9900, L100.0100, L503.6550, L3100.7950, L3100.5500, L3300.0960, L500.4050 #### [facility] [address] [place], [address] Lymphocytes/100 WBC (Bld) 39.1 % Normal 19-41 [facility] Comment on above: Performed By: #### L 3300.9900, L100.0100, L503.6550, L3100.7950, L3100.5500, L3300.0960, L500.4050 #### [facility] [address] [place], [address] MCH (RBC) [Entitic mass] 29.8 pg Normal 27.0-32.0 [facility] Comment on above: Performed By: #### L 3300.9900, L100.0100, L503.6550, L3100.7950, L3100.5500, L3300.0960, L500.4050 #### [facility] [address] [place], [address] MCHC (RBC) [Mass/Vol] 32.6 g/dL Normal 32-36 [facility] Comment on above: Performed By: #### L 3300.9900, L100.0100, L503.6550, L3100.7950, L3100.5500, L3300.0960, L500.4050 #### [facility] [address] [place], [address] MCV (RBC) [Entitic vol] 91.4 fL Normal 81-99 [place] Comment on above: Performed By: #### L 3300.9900, L100.0100, L503.6550, L3100.7950, L3100.5500, L3300.0960, L500.4050 #### [facility] [address] [place], [address] Monocytes/100 WBC (Bld) 6.0 % Normal 0-10 [place] Comment on above: Performed By: #### L 3300.9900, L100.0100, L503.6550, L3100.7950, L3100.5500, L3300.0960, L500.4050 #### [facility] [address] [place], [address] Neutrophils/100 WBC (Bld) 48.8 % Normal 47-70 [facility] Comment on above: Performed By: #### L 3300.9900, L100.0100, L503.6550, L3100.7950, L3100.5500, L3300.0960, L500.4050 #### [facility] [address] [place], [address] Nucleated RBC (Bld) [#/Vol] 0 10*3/uL Normal 0-5 [facility] Comment on above: Performed By: #### L 3300.9900, L100.0100, L503.6550, L3100.7950, L3100.5500, L3300.0960, L500.4050 #### [facility] [address] [place], [address] Platelet mean volume (Bld) [Entitic vol] 11.1 fL Normal 6.2-12.0 [facility] Comment on above: Performed By: #### L 3300.9900, L100.0100, L503.6550, L3100.7950, L3100.5500, L3300.0960, L500.4050 #### [facility] [address] [place], [address] Platelets (Bld) [#/Vol] 318 10*3/uL Normal 150-450 [facility] Comment on above: Performed By: #### L 3300.9900, L100.0100, L503.6550, L3100.7950, L3100.5500, L3300.0960, L500.4050 #### [facility] [address] [place], [address] RBC (Bld) [#/Vol] 4.40 10*6/uL Normal 4.2-5.4 [facility] Comment on above: Performed By: #### L 3300.9900, L100.0100, L503.6550, L3100.7950, L3100.5500, L3300.0960, L500.4050 #### [facility] [address] [place], [address] RDW SD 41.7 fl Normal 35.1-43.9 [facility] Comment on above: Performed By: #### L 3300.9900, L100.0100, L503.6550, L3100.7950, L3100.5500, L3300.0960, L500.4050 #### [facility] [address] [place], [address] WBC (Bld) [#/Vol] 7.5 10*3/uL Normal 4.4-11.0 [facility] Comment on above: Performed By: #### L 3300.9900, L100.0100, L503.6550, L3100.7950, L3100.5500, L3300.0960, L500.4050 #### [facility] [address] [place], [address] Comprehensive Metabolic Prof ilon 01-10-2024 Albumin [Mass/Vol] 4.4 g/dL Normal 3.2-5.0 [facility] Comment on above: Performed By: #### L 3300.9900, L100.0100, L503.6550, L3100.7950, L3100.5500, L3300.0960, L500.4050 #### [facility] [address] [place], [address] Albumin/Globulin [Mass ratio] 1.3 {ratio} Normal 0.9-2.4 [facility] Comment on above: Performed By: #### L 3300.9900, L100.0100, L503.6550, L3100.7950, L3100.5500, L3300.0960, L500.4050 #### [facility] [address] [place], [address] ALK P 49 U/L Normal 45-117 [facility] Comment on above: Performed By: #### L 3300.9900, L100.0100, L503.6550, L3100.7950, L3100.5500, L3300.0960, L500.4050 #### [facility] [address] [place], [address] ALT [Catalytic activity/Vol] 14 U/L Normal 13-56 [facility] Comment on above: Performed By: #### L 3300.9900, L100.0100, L503.6550, L3100.7950, L3100.5500, L3300.0960, L500.4050 #### [facility] [address] [place], [address] AST [Catalytic activity/Vol] 13 U/L Low 15-37 [facility] Comment on above: Performed By: #### L 3300.9900, L100.0100, L503.6550, L3100.7950, L3100.5500, L3300.0960, L500.4050 #### [facility] [address] [place], [address] Bilirubin [Mass/Vol] 0.40 mg/dL Normal 0.20-1.00 [facility] Comment on above: Result Comment: For patients on eltrombopag therapy, use of Dimension [place] TBIL is not recommended. Performed By: #### L 3300.9900, L100.0100, L503.6550, L3100.7950, L3100.5500, L3300.0960, L500.4050 #### [facility] [address] [place], [address] BUN/CRE 11.4 RATIO Normal 10-20 [facility] Comment on above: Performed By: #### L 3300.9900, L100.0100, L503.6550, L3100.7950, L3100.5500, L3300.0960, L500.4050 #### [facility] [address] [place], [address] CA,Total 9.4 mg/dL Normal 8.5-10.1 [facility] Comment on above: Performed By: #### L 3300.9900, L100.0100, L503.6550, L3100.7950, L3100.5500, L3300.0960, L500.4050 #### [facility] [address] [place], [address] Chloride [Moles/Vol] 106 mmol/L Normal 98-107 [facility] Comment on above: Performed By: #### L 3300.9900, L100.0100, L503.6550, L3100.7950, L3100.5500, L3300.0960, L500.4050 #### [facility] [address] [place], [address] CO2 [Moles/Vol] 25.0 mmol/L Normal 21.0-32.0 [facility] Comment on above: Performed By: #### L 3300.9900, L100.0100, L503.6550, L3100.7950, L3100.5500, L3300.0960, L500.4050 #### [facility] [address] [place], [place], [address] (569) Creatinine [Mass/Vol] 0.88 mg/dL Normal 0.55-1.02 [facility] Comment on above: Result Comment: The validity of the calculated GFR GFRAA in patients over 70 years has not been determined. Clinical correlation is essential. Performed By: #### L 3300.9900, L100.0100, L503.6550, L3100.7950, L3100.5500, L3300.0960, L500.4050 #### [facility] [address] [place], [address] EST GFR - AA 102 mL/min Normal >60 [facility] Comment on above: Result Comment: Afri can [place] GFR Calc Performed By: #### L 3300.9900, L100.0100, L503.6550, L3100.7950, L3100.5500, L3300.0960, L500.4050 #### [facility] [address] [place], [address] GAP 7 Normal 5-15 [facility] Comment on above: Performed By: #### L 3300.9900, L100.0100, L503.6550, L3100.7950, L3100.5500, L3300.0960, L500.4050 #### [facility] [address] [place], [address] GFR/1.73 sq M.predicted among non-blacks MDRD (S/P/Bld) [Vol rate/Area] 85 mL/min/{1.73_m2} Normal >60 [facility] Comment on above: Result Comment: Non- GFR Calc Performed By: #### L 3300.9900, L100.0100, L503.6550, L3100.7950, L3100.5500, L3300.0960, L500.4050 #### [facility] [address] [place], [address] Globulin (S) [Mass/Vol] 3.4 g/dL Normal 2.2-4.2 [place] Comment on above: Performed By: #### L 3300.9900, L100.0100, L503.6550, L3100.7950, L3100.5500, L3300.0960, L500.4050 #### [facility] [address] [place], [address] Glucose [Mass/Vol] 80 mg/dL Normal 74-106 [facility] Comment on above: Performed By: #### L 3300.9900, L100.0100, L503.6550, L3100.7950, L3100.5500, L3300.0960, L500.4050 #### [facility] [address] [place], [address] Potassium [Moles/Vol] 3.7 mmol/L Normal 3.5-5.1 [facility] Comment on above: Performed By: #### L 3300.9900, L100.0100, L503.6550, L3100.7950, L3100.5500, L3300.0960, L500.4050 #### [facility] [address] [place], [place], [id number] Sodium [Moles/Vol] 138 mmol/L Normal 136-145 [facility] Comment on above: Performed By: #### L 3300.9900, L100.0100, L503.6550, L3100.7950, L3100.5500, L3300.0960, L500.4050 #### [facility] [address] [place], [place], [address] T PROT 7.8 g/dL Normal 6.4-8.2 [facility] Comment on above: Performed By: #### L 3300.9900, L100.0100, L503.6550, L3100.7950, L3100.5500, L3300.0960, L500.4050 #### [facility] [address] [place], [place], [address] Urea nitrogen [Mass/Vol] 10 mg/dL Normal 7-18 [facility] Comment on above: Performed By: #### L 3300.9900, L100.0100, L503.6550, L3100.7950, L3100.5500, L3300.0960, L500.4050 #### [facility] [address] [place], [place], [id number] Ferritinon 01-10-2024 Ferritin [Mass/Vol] 13 ng/mL Normal 8-252 [facility] Comment on above: Performed By: #### L 3300.9900, L100.0100, L503.6550, L3100.7950, L3100.5500, L3300.0960, L500.4050 #### [facility] [address] [place], [place], [id number] CNPSravani 12-19-2023 DELISAN Telephone (OBGYWM) -------- KIERA ARVIZU ([id number]) 1 F Date Time Provider Department 12/19/23 [...] she proceeds with any appointment-none found in [facility] or care-everywhere Leah Schreiber RN 12/26/2023 9:43 [...] Status:Closed by LEAH SCHREIBER on 12/26/23 Normal [facility] Dilute Blayne's viper venom timeOrdered By: Dr. Huston on 08-24-2022 dRVVT Coag (PPP) [Time] 40.6 s 0.0-47.[address] [facility] No Panel InformationOrdered By: Dr. Huston on 08-24-2022 Anti-Cardiolipin IgM Antibody 13 MPL U/mL 0-12 [facility] Comment on above: Negative: <13 Indete rminate: 13 - 20 Low-Med Positive: >20 - 80 High Positive: >80Performed at: [address] [id number] Director: Christoph Thomas MD, Phone: [phone] at: [place] [id number] [place], [place] [id number] Director: Wei Smith PhD, Phone: [phone] Serum [id number] m easurement (mass/volume)Ordered By: Dr. Huston on 08-24-2022 [id number] [Mass/Vol] 1.6 ug/mL 0.6-2.4 [facility] Comment on above: Siemens Ubiquity Hostingulite 200 0 Immunochemiluminometric assay (ICMA)Values obtained with different assay methods or kits cannotbe used interchangeably. Results cannot be interpreted asabsolute evidence of the presence or absence of malignantdisease.Performed at: [address] [id number] Director: Christoph Thomas MD, Phone: [phone] Serum cardiolipin IgG antibo dy assay by immunoassay (units/volume)Ordered By: Dr. Huston on 08-24-2022 Cardiolipin IgG IA Qn (S) < 9 GPL U/mL 0-14 [facility] Comment on above: Negative: <15 Indete rminate: 15 - 20 Low-Med Positive: >20 - 80 High Positive: >80 Thin prep Papanicolaou smear with manual screeningOrdered By: Dr. Huston on 08-24-2022 Thin prep Papanicolaou smear with manual screening 40.1 sec 0.0-47.6 [facility] Thin prep Papanicolaou smear with manual screening 1.04 Ratio 0.00-1.34 [facility] Thin prep Papanicolaou smear with manual screening 36.4 sec 0.0-43.5 [facility] Thin prep Papanicolaou smear with manual screening Comment: . [facility] Comment on above: No lupus anticoagula nt was detected. Thrombin time in platelet po or plasmaOrdered By: Dr. Huston on 08-24-2022 Thrombin time Coag (PPP) [Time] 16.5 sec 0.0-23.0 [facility] Culture, urineOrdered By: Dr Javier Huston on 05-25-2022 Bacteria identified Cx Nom (U) Positive [facility] Basophil percentageOrdered B y: Dr. Huston on 05-24-2022 Bilirubin [Mass/Vol] 0.50 mg/dL 0.20-1.00 [facility] Comment on above: For patients on eltr ombopag therapy, use of Dimension [place]cl[place] TBIL is not recommended. Chloride [Moles/Vol] 108 mmol/L 98-107 [facility] Glucose [Mass/Vol] 86 mg/dL 74-106 [facility] Potassium [Moles/Vol] 3.7 mmol/L 3.5-5.1 [facility] Protein [Mass/Vol] 7.2 g/dL 6.4-8.2 [facility] Sodium [Moles/Vol] 141 mmol/L 136-145 [facility] WBC (Bld) [#/Vol] 7.8 10*3/uL 4.4-11.0 [facility] Blood erythrocytes count (nu mber/volume)Ordered By: Dr. Huston on 05-24-2022 RBC (Bld) [#/Vol] 4.04 10*6/uL 4.2-5.4 [facility] Blood hemoglobin measurement (mass/volume)Ordered By: Dr. Huston on 05-24-2022 Hemoglobin (Bld) [Mass/Vol] 11.9 g/dL 12.0-15.0 [facility] Blood platelet mean volumeOr dered By: Dr. Huston on 05-24-2022 Platelet mean volume (Bld) [Entitic vol] 9.8 fL 6.2-12.0 [facility] Determination of erythrocyte mean corpuscular volume (MCV)Ordered By: Dr. Huston on 05-24-2022 MCV (RBC) [Entitic vol] 92.1 fL 81-[address] [facility] Dilute Blayne's viper venom timeOrdered By: Dr. Huston on 05-24-2022 dRVVT Coag (PPP) [Time] 37.1 s 0.0-47.[address] [facility] Hematocrit Auto (Bld) [Volum e fraction]Ordered By: Dr. Huston on 05-24-2022 Hematocrit (Bld) [Volume fraction] 37.2 % 37-47 [facility] Laboratory - Chemistry and C hemistry - challengeOrdered By: Dr. Huston on 05-24-2022 ALP [Catalytic activity/Vol] 70 U/L 45-117 [facility] ALT [Catalytic activity/Vol] 50 U/L 13-56 [facility] CO2 [Moles/Vol] 24.0 mmol/L 21.0-32.0 [facility] Globulin (S) [Mass/Vol] 3.4 g/dL 2.2-4.[address] [facility] Urea nitrogen/Creatinine [Mass ratio] 16.8 mg/mg 10-20 [facility] Laboratory - Hematology and Cell countsOrdered By: Dr. Huston on 05-24-2022 Erythrocyte distribution width (RBC) [Entitic vol] 42.0 fL 35.1-43.9 [facility] Erythrocyte distribution width (RBC) [Ratio] 12.2 % 11.6-14.6 [facility] MCH (RBC) [Entitic mass] 29.5 pg 27.0-32.0 [facility] MCHC Auto (RBC) [Mass/Vol]Or dered By: Dr. Huston on 05-24-2022 MCHC (RBC) [Mass/Vol] 32.0 g/dL 32-36 [facility] No Panel InformationOrdered By: Dr. Huston on 05-24-2022 Anti-Cardiolipin IgM Antibody 21 MPL U/mL 0-12 [facility] Comment on above: Negative: <13 Indete rminate: 13 - 20 Low-Med Positive: >20 - 80 High Positive: >80Performed at: [employer] [id number] Director: Christoph Thomas MD, Phone: [phone] at: [employer] [address] [id number] Director: Wei Smith PhD, Phone: [phone] Estimated GFR (MDRD) Amer 101 mL/min >60 [facility] Comment on above: GFR Calc Estimated GFR (MDRD) Non-Af Amer 84 mL/min >60 [facility] Comment on above: Non- GFR Calc Platelets bldOrdered By: Dr. Huston on 05-24-2022 Platelets (Bld) [#/Vol] 310 10*3/uL 150-450 [facility] Serum [id number] m easurement (mass/volume)Ordered By: Dr. Huston on 05-24-2022 [id number] [Mass/Vol] 1.4 ug/mL 0.6-2.4 [facility] Comment on above: Siemens Ubiquity Hostingulite 200 0 Immunochemiluminometric assay (ICMA)Values obtained with different assay methods or kits cannotbe used interchangeably. Results cannot be interpreted asabsolute evidence of the presence or absence of malignantdisease.Performed at: [place] [address] [id number] Director: Christoph Thomas MD, Phone: [phone] Serum cardiolipin IgG antibo dy assay by immunoassay (units/volume)Ordered By: Dr. Huston on 05-24-2022 Cardiolipin IgG IA Qn (S) < 9 GPL U/mL 0-14 [facility] Comment on above: Negative: <15 Indete rminate: 15 - 20 Low-Med Positive: >20 - 80 High Positive: >80 Serum or plasma albumin kemi urement (mass/volume)Ordered By: Dr. Huston on 05-24-2022 Albumin [Mass/Vol] 3.8 g/dL 3.2-5.0 [facility] Serum or plasma albumin/glob ulin mass ratioOrdered By: Dr. Huston on 05-24-2022 Albumin/Globulin [Mass ratio] 1.1 {ratio} 0.9-2.4 [facility] Serum or plasma calcium kemi urement (mass/volume)Ordered By: Dr. Huston on 05-24-2022 Calcium [Mass/Vol] 9.3 mg/dL 8.5-10.1 [facility] Serum or plasma creatinine m easurement (mass/volume)Ordered By: Dr. Huston on 05-24-2022 Creatinine [Mass/Vol] 0.90 mg/dL 0.55-1.02 [facility] Comment on above: The validity of the calculated GFR & GFRAA in patients over 70 years has not been determined. Clinical correlation is essential. Serum or plasma urea nitroge n measurement (mass/volume)Ordered By: Dr. Huston on 05-24-2022 Urea nitrogen [Mass/Vol] 15 mg/dL 7-18 [facility] Thin prep Papanicolaou smear with manual screeningOrdered By: Dr. Huston on 05-24-2022 Thin prep Papanicolaou smear with manual screening 35 U/L 15-37 [facility] Thin prep Papanicolaou smear with manual screening 9 5-15 [facility] Thin prep Papanicolaou smear with manual screening 38.8 sec 0.0-47.6 [facility] Thin prep Papanicolaou smear with manual screening 0.91 Ratio 0.00-1.34 [facility] Thin prep Papanicolaou smear with manual screening 37.9 sec 0.0-43.5 [facility] Comment on above: Please note refere nce interval change Thin prep Papanicolaou smear with manual screening Comment: . [facility] Comment on above: No lupus anticoagula nt was detected. Thrombin time in platelet po or plasmaOrdered By: Dr. Huston on 05-24-2022 Thrombin time Coag (PPP) [Time] 18.6 sec 0.0-23.0 [facility] Urine creatinine measurement (mass/volume)Ordered By: Dr. Huston on 05-24-2022 Creatinine (U) [Mass/Vol] 243.00 mg/dL NO RANGE EST. [facility] Urine protein measurement (m ass/volume)Ordered By: Dr. Huston on 05-24-2022 Protein (U) [Mass/Vol] 22.0 mg/dL 0.0-11.8 [facility] Urine protein/creatinine mas s ratioOrdered By: Dr. Huston on 05-24-2022 Protein/Creatinine (U) [Mass ratio] 91 mg/g CRE 0-200 [facility] Progress Noteon 04-15-2022 Progress Note Note-Sharyn [...] with more than 50% of the total rjhv-yr-wuwy time of the visit in counseling/coordination of care. , 10:20 AM [facility] 42on 04-14-2022 42 Follow up visit with [...] when she is ready for that. Normal [facility] CAREPLNon 04-14-2022 CAREPLN The patient is [...] facility with appropriate resources Outcome: Progressing Normal [facility] Comprehensive metabolic 1998 panelon 04-14-2022 Albumin [Mass/Vol] 2.7 g/dL Low 3.5 - 5.0 g/dL [facility] ALP [Catalytic activity/Vol] 210 U/L High 38 - 126 U/L [facility] ALT [Catalytic activity/Vol] 20 U/L 0 - 34 U/L [facility] Anion gap [Moles/Vol] 2 mmol/L Low 3 - 13 mmol/L [facility] AST [Catalytic activity/Vol] 46 U/L 15 - 46 U/L [facility] Bilirubin [Mass/Vol] 0.1 mg/dL Low 0.2 - 1 .3 mg/dL [facility] Calcium [Mass/Vol] 7.5 mg/dL Low 8.4 - 10. 4 mg/dL [facility] Chloride [Moles/Vol] 105 mmol/L 98 - 10 7 mmol/L [facility] CO2 [Moles/Vol] 25 mmol/L 22 - 30 mmol/L [facility] Creatinine [Mass/Vol] 0.94 mg/dL 0.52 - 1.04 mg/dL [facility] GFR/1.73 sq M.predicted MDRD (S/P/Bld) [Vol rate/Area] 88.7 mL/min/{1.73_m2} - PINF [facility] Comment on above: Calculation based on the Chronic Kidney Disease Epidemiology Collaboration (CKD-EPI) equation refit without adjustment for race Glucose [Mass/Vol] 77 mg/dL 70 - 100 mg/dL [facility] Interpretation and review of laboratory results Abnormal [facility] Potassium [Moles/Vol] 4.4 mmol/L 3.5 - 5.1 mmol/L [facility] Protein [Mass/Vol] 5.5 g/dL Low 6.3 - 8.2 g/dL [facility] Sodium [Moles/Vol] 133 mmol/L Low 135 - 145 mmol/L [facility] Urea nitrogen [Mass/Vol] 27 mg/dL High 7 - 17 mg/dL [facility] No Panel Informationon 04-14 LUCIA Pattern [facility] LUCIA Titer [facility] TESTED BY INDIRECT IMMUNOFLUORESCENCE ASSAY (IFA) [facility] No Panel InformationOrdered By: Faustino Jamison on 04-14-2022 Anti-DNA Antibody [facility] Interpretation and review of laboratory results Normal [facility] Progress Noteon 04-14-2022 Progress Note Nutrition rescreen completed. Patient assigned a level 1. YORDY Viveros Normal [facility] Progress Note Note-Sharyn quinonez POST OPERATIVE [...] time was spent counseling and coordinating care. [facility] 42on 04-13-2022 42 Breast pump use indicated for this pt. Due to: in [facility] and [facility] weeks Hospital breast pump, supplies [...] rental pump for home- will speak to [facility] about rental home pump [facility] CARECOORDon 04-13-2022 CARECOORD 21 year old admitted [...] Denies any concerns at this time. Normal [facility] CAREPLNon 04-13-2022 CAREPLN The patient is [...] facility with appropriate resources Outcome: Progressing Normal [facility] CBC panel Auto (Bld)Ordered By: Lizzie Corbin on 04-13-2022 Erythrocyte distribution width (RBC) [Ratio] 13.3 % 11.5 - 14.5 % [facility] Hematocrit (Bld) [Volume fraction] 38.2 % 35.0 - 47.0 % [facility] Hemoglobin (Bld) [Mass/Vol] 12.9 g/dL 11.7 - 16.0 g/dL [facility] Interpretation and review of laboratory results Abnormal [facility] MCH (RBC) [Entitic mass] 30.4 pg 26.0 - 34.0 pg [facility] MCHC (RBC) [Mass/Vol] 33.6 % 32.0 - 36.0 % [facility] MCV (RBC) [Entitic vol] 90.2 fL 80.0 - 98.0 fL [facility] Platelet mean volume (Bld) [Entitic vol] 10.0 fL 7.4 - 12.4 fL [facility] Platelets (Bld) [#/Vol] 207 10*3/uL 140 - 440 10*3/uL [facility] RBC (Bld) [#/Vol] 4.23 10*6/uL 3.8 - 5.20 10*6/uL [facility] WBC (Bld) [#/Vol] 19.2 10*3/uL High 3.6 - 10.7 10*3/uL [facility] Comprehensive metabolic 1998 panelon 04-13-2022 Albumin [Mass/Vol] 3.5 g/dL 3.5 - 5.0 g/dL [facility] ALP [Catalytic activity/Vol] 273 U/L High 38 - 126 U/L [facility] ALT [Catalytic activity/Vol] 23 U/L 0 - 34 U/L [facility] Anion gap [Moles/Vol] 2 mmol/L Low 3 - 13 mmol/L [facility] AST [Catalytic activity/Vol] 55 U/L High 15 - 46 U/L [facility] Bilirubin [Mass/Vol] 0.3 mg/dL 0.2 - 1 .3 mg/dL [facility] Calcium [Mass/Vol] 8.4 mg/dL 8.4 - 10. 4 mg/dL [facility] Chloride [Moles/Vol] 107 mmol/L 98 - 10 7 mmol/L [facility] CO2 [Moles/Vol] 24 mmol/L 22 - 30 mmol/L [facility] Creatinine [Mass/Vol] 1.08 mg/dL High 0.52 - 1.04 mg/dL [facility] GFR/1.73 sq M.predicted MDRD (S/P/Bld) [Vol rate/Area] 75.1 mL/min/{1.73_m2} - PINF [facility] Comment on above: Calculation based on the Chronic Kidney Disease Epidemiology Collaboration (CKD-EPI) equation refit without adjustment for race Glucose [Mass/Vol] 118 mg/dL High 70 - 100 mg/dL [facility] Interpretation and review of laboratory results Abnormal [facility] Potassium [Moles/Vol] 4.7 mmol/L 3.5 - 5.1 mmol/L [facility] Protein [Mass/Vol] 6.6 g/dL 6.3 - 8.2 g/dL [facility] Sodium [Moles/Vol] 132 mmol/L Low 135 - 145 mmol/L [facility] Urea nitrogen [Mass/Vol] 31 mg/dL High 7 - 17 mg/dL [facility] Albumin [Mass/Vol] 3.4 g/dL Low 3.5 - 5.0 g/dL [facility] ALP [Catalytic activity/Vol] 286 U/L High 38 - 126 U/L [facility] ALT [Catalytic activity/Vol] 20 U/L 0 - 34 U/L [facility] Anion gap [Moles/Vol] 8 mmol/L 3 - 13 mmol/L [facility] AST [Catalytic activity/Vol] 50 U/L High 15 - 46 U/L [facility] Bilirubin [Mass/Vol] 0.3 mg/dL 0.2 - 1 .3 mg/dL [facility] Calcium [Mass/Vol] 8.4 mg/dL 8.4 - 10. 4 mg/dL [facility] Chloride [Moles/Vol] 104 mmol/L 98 - 10 7 mmol/L [facility] CO2 [Moles/Vol] 19 mmol/L Low 22 - 30 mmol/L [facility] Creatinine [Mass/Vol] 1.01 mg/dL 0.52 - 1.04 mg/dL [facility] GFR/1.73 sq M.predicted MDRD (S/P/Bld) [Vol rate/Area] 81.4 mL/min/{1.73_m2} - PINF [facility] Comment on above: Calculation based on the Chronic Kidney Disease Epidemiology Collaboration (CKD-EPI) equation refit without adjustment for race Glucose [Mass/Vol] 129 mg/dL High 70 - 100 mg/dL [facility] Potassium [Moles/Vol] 4.8 mmol/L 3.5 - 5.1 mmol/L [facility] Protein [Mass/Vol] 6.7 g/dL 6.3 - 8.2 g/dL [facility] Sodium [Moles/Vol] 132 mmol/L Low 135 - 145 mmol/L [facility] Urea nitrogen [Mass/Vol] 29 mg/dL High 7 - 17 mg/dL [facility] Albumin [Mass/Vol] 3.1 g/dL Low 3.5 - 5.0 g/dL [facility] ALP [Catalytic activity/Vol] 269 U/L High 38 - 126 U/L [facility] ALT [Catalytic activity/Vol] 19 U/L 0 - 34 U/L [facility] Anion gap [Moles/Vol] 6 mmol/L 3 - 13 mmol/L [facility] AST [Catalytic activity/Vol] 43 U/L 15 - 46 U/L [facility] Bilirubin [Mass/Vol] 0.2 mg/dL 0.2 - 1 .3 mg/dL [facility] Calcium [Mass/Vol] 8.3 mg/dL Low 8.4 - 10. 4 mg/dL [facility] Chloride [Moles/Vol] 109 mmol/L High 98 - 10 7 mmol/L [facility] CO2 [Moles/Vol] 19 mmol/L Low 22 - 30 mmol/L [facility] Creatinine [Mass/Vol] 1.09 mg/dL High 0.52 - 1.04 mg/dL [facility] GFR/1.73 sq M.predicted MDRD (S/P/Bld) [Vol rate/Area] 74.3 mL/min/{1.73_m2} - PINF [facility] Comment on above: Calculation based on the Chronic Kidney Disease Epidemiology Collaboration (CKD-EPI) equation refit without adjustment for race Glucose [Mass/Vol] 155 mg/dL High 70 - 100 mg/dL [facility] Potassium [Moles/Vol] 4.6 mmol/L 3.5 - 5.1 mmol/L [facility] Protein [Mass/Vol] 6.1 g/dL Low 6.3 - 8.2 g/dL [facility] Sodium [Moles/Vol] 134 mmol/L Low 135 - 145 mmol/L [facility] Urea nitrogen [Mass/Vol] 29 mg/dL High 7 - 17 mg/dL [facility] Laboratory - Chemistry and C hemistry - challengeOrdered By: Alphonse Mota on 04-13-2022 Magnesium [Mass/Vol] 5.4 mg/dL Critically high 1.6 - 2.3 mg/dL [facility] - Chemistry and C hemistry - challengeon 04-13-2022 Magnesium [Mass/Vol] 4.6 mg/dL High 1.6 - 2 .3 mg/dL [facility] Magnesium [Mass/Vol] 4.8 mg/dL High 1.6 - 2 .3 mg/dL [facility] - Hematology and Cell countson 04-13-2022 Complement C3 [Mass/Vol] 107 mg/dL 88 - 165 mg/dL [facility] [employer] Complement C4 [Mass/Vol] 14 mg/dL 14 - 44 mg/dL [facility] - Urinalysison Protein (U) [Mass/Vol] 352 mg/dL High 0 - 12 mg/dL [facility] Magnesium [Mass/Vol]Ordered By: Alphonse Mota on 04-13-2022 Interpretation and review of laboratory results Abnormal [facility] [employer] No Panel Informationon 04-13 Interpretation and review of laboratory results Abnormal [facility] [employer] Interpretation and review of laboratory results Normal [facility] [employer] Interpretation and review of laboratory results Abnormal [facility] [employer] Interpretation and review of laboratory results Abnormal [facility] [employer] Progress Noteon 04-13-2022 Progress Note ---- -------- Attestation signed by Estrella Boyd MD at 04/13/2022 12:51 PM Hospital Care (Independent): I independently saw and evaluated the patient. I agree with the findings and plan of care as documented in the resident's note. POD#1 from [facility]. Doing well meeting milestones. PreEwSF: BP normal to low mild range on Procardia 30mg XL daily. Cr improving to 1.01 from 1.15 on admission. UOP just adequate. Ok for eddy removal. Slight AST elevated to 50. Continue lab trend. Mag on until 184 tonight. Will start lovenox in the AM due to TOMASA - improving. 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 Plan DC home POD#3 or [...] stable to start PreEwSF - Transferred from [place] for persistent severe range BP's, BROWN, and N/V x3 days - Started on magnesium sulfate for seizure ppx and neuroprotection and MFM recommended delivery - Trending CBC, CMP, and Magnesium every 6 hours - Magnesium sulfate currently at decreased rate of 0.5g/hr due to TOMASA and has remained within a therap (more content not included)... Normal [facility] ABO and Rh group Confirm Nom (Bld)on 04-12-2022 ABO group Nom (Bld) A [facility] D Ag Ql (RBC) Positive [facility] Absolute lymphocyte countOrd ered By: Dr. Huston on 04-12-2022 Lymphocytes Auto (Unsp spec) [#/Vol] 2.81 10*3/uL 0.83-4.51 [facility] Basophil percentageOrdered B y: Dr. Huston on 04-12-2022 Basophils/100 WBC (Bld) 0.8 % 0-[address] [facility] Bilirubin [Mass/Vol] 0.30 mg/dL 0.20-1.00 [facility] Comment on above: For patients on eltr ombopag therapy, use of Dimension [place] TBIL is not recommended. Chloride [Moles/Vol] 111 mmol/L 98-107 [facility] Eosinophils/100 WBC (Bld) 3.1 % 0-5 [facility] Glucose [Mass/Vol] 71 mg/dL 74-106 [facility] LDH [Catalytic activity/Vol] 292 U/L 84-246 [facility] Neutrophils (Bld) [#/Vol] 9.7 10*3/uL 2.0-7.7 [facility] Neutrophils/100 WBC (Bld) 70.2 % 47-70 [facility] Potassium [Moles/Vol] 4.7 mmol/L 3.5-5.1 [facility] Protein [Mass/Vol] 6.7 g/dL 6.4-8.2 [facility] Sodium [Moles/Vol] 141 mmol/L 136-145 [facility] WBC (Bld) [#/Vol] 13.7 10*3/uL 4.4-11.0 [facility] Bilirubin Test strip Ql (U)O rdered By: Dr. Huston on 04-12-2022 Bilirubin Ql (U) Negative Negative [facility] Blood erythrocytes count (nu mber/volume)Ordered By: Dr. Huston on 04-12-2022 RBC (Bld) [#/Vol] 4.70 10*6/uL 4.2-5.4 [facility] Blood hemoglobin measurement (mass/volume)Ordered By: Dr. Huston on 04-12-2022 Hemoglobin (Bld) [Mass/Vol] 14.3 g/dL 12.0-15.0 [facility] Blood lymphocytes/100 leukoc ytesOrdered By: Dr. Huston on 04-12-2022 Lymphocytes/100 WBC (Bld) 20.5 % 19-41 [facility] Blood monocytes/100 leukocyt esOrdered By: Dr. Huston on 04-12-2022 Monocytes/100 WBC (Bld) 4.3 % 0-[address] [facility] Blood platelet mean volumeOr dered By: Dr. Huston on 04-12-2022 Platelet mean volume (Bld) [Entitic vol] 12.0 fL 6.2-12.0 [facility] Blood type and Crossmatch pa poncho (Bld)on 04-12-2022 ABO group Nom (Bld) A [facility] Blood group antibody screen GEL Ql Negative [facility] D Ag Ql (RBC) Positive [facility] CBC panel Auto (Bld)Ordered By: Mark Hampton on 04-12-2022 Erythrocyte distribution width (RBC) [Ratio] 13.1 % 11.5 - 14.5 % [facility] Hematocrit (Bld) [Volume fraction] 40.8 % 35.0 - 47.0 % [facility] Hemoglobin (Bld) [Mass/Vol] 13.7 g/dL 11.7 - 16.0 g/dL [facility] Interpretation and review of laboratory results Abnormal [facility] MCH (RBC) [Entitic mass] 30.1 pg 26.0 - 34.0 pg [facility] MCHC (RBC) [Mass/Vol] 33.5 % 32.0 - 36.0 % [facility] MCV (RBC) [Entitic vol] 90.0 fL 80.0 - 98.0 fL [facility] Platelet mean volume (Bld) [Entitic vol] 10.1 fL 7.4 - 12.4 fL [facility] Platelets (Bld) [#/Vol] 237 10*3/uL 140 - 440 10*3/uL [facility] RBC (Bld) [#/Vol] 4.54 10*6/uL 3.8 - 5.20 10*6/uL [facility] WBC (Bld) [#/Vol] 17.3 10*3/uL High 3.6 - 10.7 10*3/uL [facility] Comprehensive metabolic 1998 panelon 04-12-2022 Albumin [Mass/Vol] 3.1 g/dL Low 3.5 - 5.0 g/dL [facility] ALP [Catalytic activity/Vol] 313 U/L High 38 - 126 U/L [facility] ALT [Catalytic activity/Vol] 17 U/L 0 - 34 U/L [facility] Anion gap [Moles/Vol] 11 mmol/L 3 - 13 mmol/L [facility] AST [Catalytic activity/Vol] 36 U/L 15 - 46 U/L [facility] Bilirubin [Mass/Vol] 0.3 mg/dL 0.2 - 1 .3 mg/dL [facility] Calcium [Mass/Vol] 8.8 mg/dL 8.4 - 10. 4 mg/dL [facility] Chloride [Moles/Vol] 108 mmol/L High 98 - 10 7 mmol/L [facility] CO2 [Moles/Vol] 14 mmol/L Low 22 - 30 mmol/L [facility] Creatinine [Mass/Vol] 1.12 mg/dL High 0.52 - 1.04 mg/dL [facility] GFR/1.73 sq M.predicted MDRD (S/P/Bld) [Vol rate/Area] 71.9 mL/min/{1.73_m2} - PINF [facility] Comment on above: Calculation based on the Chronic Kidney Disease Epidemiology Collaboration (CKD-EPI) equation refit without adjustment for race Glucose [Mass/Vol] 141 mg/dL High 70 - 100 mg/dL [facility] Potassium [Moles/Vol] 4.6 mmol/L 3.5 - 5.1 mmol/L [facility] Protein [Mass/Vol] 5.8 g/dL Low 6.3 - 8.2 g/dL [facility] Sodium [Moles/Vol] 132 mmol/L Low 135 - 145 mmol/L [facility] Urea nitrogen [Mass/Vol] 29 mg/dL High 7 - 17 mg/dL [facility] Slightly Hemolyzed. Interpret ALKALINE PHOSPHATASE, AST, and POTASSIUM with caution. [facility] Albumin [Mass/Vol] 3.6 g/dL 3.5 - 5.0 g/dL [facility] ALP [Catalytic activity/Vol] 346 U/L High 38 - 126 U/L [facility] ALT [Catalytic activity/Vol] 17 U/L 0 - 34 U/L [facility] Anion gap [Moles/Vol] 6 mmol/L 3 - 13 mmol/L [facility] AST [Catalytic activity/Vol] 40 U/L 15 - 46 U/L [facility] Bilirubin [Mass/Vol] 0.3 mg/dL 0.2 - 1 .3 mg/dL [facility] Calcium [Mass/Vol] 9.6 mg/dL 8.4 - 10. 4 mg/dL [facility] Chloride [Moles/Vol] 110 mmol/L High 98 - 10 7 mmol/L [facility] CO2 [Moles/Vol] 19 mmol/L Low 22 - 30 mmol/L [facility] Creatinine [Mass/Vol] 1.15 mg/dL High 0.52 - 1.04 mg/dL [facility] GFR/1.73 sq M.predicted MDRD (S/P/Bld) [Vol rate/Area] 69.7 mL/min/{1.73_m2} - PINF [facility] Comment on above: Calculation based on the Chronic Kidney Disease Epidemiology Collaboration (CKD-EPI) equation refit without adjustment for race Glucose [Mass/Vol] 97 mg/dL 70 - 100 mg/dL [facility] Potassium [Moles/Vol] 4.7 mmol/L 3.5 - 5.1 mmol/L [facility] Protein [Mass/Vol] 6.9 g/dL 6.3 - 8.2 g/dL [facility] Sodium [Moles/Vol] 135 mmol/L 135 - 145 mmol/L [facility] Urea nitrogen [Mass/Vol] 30 mg/dL High 7 - 17 mg/dL [facility] Creatinine (U) [Mass/Vol]on 04-12-2022 CREATININE, URINE 144.2 mg/dL No Range [facility] Determination of erythrocyte mean corpuscular volume (MCV)Ordered By: Dr. Huston on 04-12-2022 MCV (RBC) [Entitic vol] 88.3 fL 81-[address] [facility] Hematocrit Auto (Bld) [Volum e fraction]Ordered By: Dr. Huston on 04-12-2022 Hematocrit (Bld) [Volume fraction] 41.5 % 37-47 [facility] Ketones Test strip Ql (U)Ord ered By: Dr. Huston on 04-12-2022 Ketones Ql (U) Negative Negative [facility] Labor and Delivery Noteon Labor and [...] anesthesia recovery Intrauterine Device Information: Paragard, Lot [id number],[facility] Jun 2026 FINDINGS: Live Male [...] the R (more content not included)... Normal [facility] Laboratory - Chemistry and C hemistry - challengeon 04-12-2022 Sodium (24H U) [Mass/Vol] 43 mmol/L 30 - 90 mmol/L [facility] Magnesium [Mass/Vol] 4.9 mg/dL High 1.6 - 2 .3 mg/dL [facility] Magnesium [Mass/Vol] 4.7 mg/dL High 1.6 - 2 .3 mg/dL [facility] Laboratory - Chemistry and C hemistry - challengeOrdered By: Dr. uHston on 04-12-2022 ALP [Catalytic activity/Vol] 305 U/L 45-117 [facility] ALT [Catalytic activity/Vol] 20 U/L 13-56 [facility] CO2 [Moles/Vol] 24.0 mmol/L 21.0-32.0 [facility] Globulin (S) [Mass/Vol] 4.0 g/dL 2.2-4.[address] [facility] Urea nitrogen/Creatinine [Mass ratio] 25.0 mg/mg 10-20 [facility] Laboratory - Hematology and Cell countsOrdered By: Dr. Huston on 04-12-2022 Erythrocyte distribution width (RBC) [Entitic vol] 41.3 fL 35.1-43.9 [facility] Erythrocyte distribution width (RBC) [Ratio] 12.7 % 11.6-14.6 [facility] Immature granulocytes/100 WBC (Bld) 1.100 % 0.0-0.9 [facility] Comment on above: IG% - Immature Granu locytes (promyelocytes, myelocytes and metamyelocytes) > 1% indicates that a LEFT SHIFT is Present. MCH (RBC) [Entitic mass] 30.4 pg 27.0-32.0 [facility] Nucleated RBC/100 WBC (Bld) [Ratio] 0 % 0-5 [facility] Laboratory - Urinalysison Protein (U) [Mass/Vol] mg/dL High 0 - 12 mg/dL [facility] MCHC Auto (RBC) [Mass/Vol]Or dered By: Dr. Huston on 04-12-2022 MCHC (RBC) [Mass/Vol] 34.5 g/dL 32-36 [facility] Magnesium [Mass/Vol]on 04-12 Slightly Hemolyzed. Interpret with caution. [facility] Nitrite Test strip Ql (U)Ord ered By: Dr. Huston on 04-12-2022 Nitrite Ql (U) Positive Negative [facility] No Panel Informationon 04-12 Interpretation and review of laboratory results Normal [facility] Interpretation and review of laboratory results Abnormal [facility] Interpretation and review of laboratory results Abnormal [facility] Interpretation and review of laboratory results Abnormal [facility] No Panel InformationOrdered By: Dr. Huston on 04-12-2022 Estimated Creatinine Clearance Calc 63.46 ml/min [facility] Estimated GFR (MDRD) Amer 75 mL/min >60 [facility] Comment on above: GFR Calc Estimated GFR (MDRD) Non-Af Amer 62 mL/min >60 [facility] Comment on above: Non- GFR Calc Platelets bldOrdered By: Dr. Huston on 04-12-2022 Platelets (Bld) [#/Vol] 249 10*3/uL 150-450 [facility] Progress Noteon 04-12-2022 Progress Note Consult [...] from NICU Potential need for transfer to [facility] if needs esclation of care, based on a variety of factors. Handouts given. No further questions. A/P: Patient is a 21 Year old At 29 Weeks 2 Days by ultrasound With 1. Current Management per OB 2. NICU to attend delivery 3. Call NICU if further questions. Maya Mahoney PRINT MANAGER-MASON TENDER Barb Diza, PRINT MANAGER - MASON TENDER [facility] Progress Note Safety Huddle Note Kiera Bello at 29w2d admitted as a transport for IOL-PreEwSF. Due to early gestation and closed cervix, recommendation is to proceed with PCD. Bps are currently controlled and patient asymptomatic along with cat I FHT so is unscheduled but not emergent. Safety huddle performed with fire extinguisher charger, patient's primary RN, residents, attending, NICU staff and OB anesthesia in attendance. Decision made to proceed with unscheduled PCD at [address] Harris and resident services coordinator are available. All in agreement. Harris Beltre, 04/12/2022 5:30 PM Normal [facility] Protein Test strip Ql (U)Ord ered By: Dr. Huston on 04-12-2022 Protein Ql (U) 500 mg/dl Negative [facility] Serum or plasma albumin kemi urement (mass/volume)Ordered By: Dr. Huston on 04-12-2022 Albumin [Mass/Vol] 2.7 g/dL 3.2-5.0 [facility] Serum or plasma albumin/glob ulin mass ratioOrdered By: Dr. Huston on 04-12-2022 Albumin/Globulin [Mass ratio] 0.7 {ratio} 0.9-2.4 [facility] Serum or plasma calcium kemi urement (mass/volume)Ordered By: Dr. Huston on 04-12-2022 Calcium [Mass/Vol] 10.2 mg/dL 8.5-10.1 [facility] Serum or plasma creatinine m easurement (mass/volume)Ordered By: Dr. Huston on 04-12-2022 Creatinine [Mass/Vol] 1.16 mg/dL 0.55-1.02 [facility] Comment on above: The validity of the calculated GFR & GFRAA in patients over 70 years has not been determined. Clinical correlation is essential. Serum or plasma urea nitroge n measurement (mass/volume)Ordered By: Dr. Huston on 04-12-2022 Urea nitrogen [Mass/Vol] 29 mg/dL 7-18 [facility] Thin prep Papanicolaou smear with manual screeningOrdered By: Dr. Huston on 04-12-2022 Thin prep Papanicolaou smear with manual screening 24 U/L 15-37 [facility] Thin prep Papanicolaou smear with manual screening 6 5-15 [facility] US OB FOLLOW UP TRANSABDOMIN AL APPROACHon 04-12-2022 US OB FOLLOW UP TRANSABDOMINAL APPROACH OBSTETRICS REPORT (Signed Final 04/12/2022 04:02 pm) PATIENT INFO: ID #: [id number] : [birth year] (21 yrs)(F) Name: KIERA BELLO Visit Date: 04/12/2022 03:51 pm PERFORMED BY: Attending: Gia Mclaughlin MD Performed By: Brandee Fererra RDMS Referred By: HARRIS BELTRE Location: [facility] IP Visit Type: Outpatient -Triage SERVICE(S) [place]: [place] [id number] BPP w/out NST 83495 US Doppler umbilical art 86056 INDICATIONS: Preeclampsia EVALUATION: Num Of Fetuses: 1 [...] findings do not guarantee normal outcomes. Normal [facility] Urine blood detectionOrdered By: Dr. Huston on 04-12-2022 RBC Ql (U) 25 /ul Negative [facility] Urine clarityOrdered By: Dr. Huston on 04-12-2022 Clarity (U) Sl. Cloudy Clear [facility] Urine color determinationOrd ered By: Dr. Huston on 04-12-2022 Color (U) Yellow Yellow [facility] Urine creatinine measurement (mass/volume)Ordered By: Dr. Huston on 04-12-2022 Creatinine (U) [Mass/Vol] 307.00 mg/dL NO RANGE EST. [facility] Urine glucose detectionOrder ed By: Dr. Huston on 04-12-2022 Glucose Ql (U) Normal mg/dl Normal [facility] Urine leukocyte esterase det ection by dipstickOrdered By: Dr. Huston on 04-12-2022 Leukocyte esterase Test strip Ql (U) 100 /ul Negative [facility] Urine pHOrdered By: Dr. Sivakumar flores on 04-12-2022 pH (U) 6.0 [pH] 5.0 - 8.0 [facility] Urine protein measurement (m ass/volume)Ordered By: Dr. Huston on 04-12-2022 Protein (U) [Mass/Vol] 3082.1 mg/dL 0.0-11.8 [facility] Urine protein/creatinine mas s ratioOrdered By: Dr. Huston on 04-12-2022 Protein/Creatinine (U) [Mass ratio] 17261 mg/g CRE 0-200 [facility] Urine specific gravity measu rementOrdered By: Dr. Huston on 04-12-2022 Specific gravity (U) [Rel density] 1.020 1.002-1.030 [facility] Urobilinogen Auto test strip Ql (U)Ordered By: Dr. Huston on 04-12-2022 Urobilinogen Ql (U) Normal mg/dl Normal [facility] Absolute lymphocyte countOrd ered By: Dr. Huston on 03-29-2022 Lymphocytes Auto (Unsp spec) [#/Vol] 2.32 10*3/uL 0.83-4.51 [facility] Basophil percentageOrdered B y: Dr. Huston on 03-29-2022 Basophils/100 WBC (Bld) 0.7 % 0-[address] [facility] Eosinophils/100 WBC (Bld) 6.3 % 0-5 [facility] Neutrophils (Bld) [#/Vol] 7.3 10*3/uL 2.0-7.7 [facility] Neutrophils/100 WBC (Bld) 65.2 % 47-70 [facility] WBC (Bld) [#/Vol] 11.2 10*3/uL 4.4-11.0 [facility] Blood erythrocytes count (nu mber/volume)Ordered By: Dr. Huston on 03-29-2022 RBC (Bld) [#/Vol] 3.88 10*6/uL 4.2-5.4 [facility] Blood hemoglobin measurement (mass/volume)Ordered By: Dr. Huston on 03-29-2022 Hemoglobin (Bld) [Mass/Vol] 12.1 g/dL 12.0-15.0 [facility] Blood lymphocytes/100 leukoc ytesOrdered By: Dr. Huston on 03-29-2022 Lymphocytes/100 WBC (Bld) 20.8 % 19-41 [facility] Blood monocytes/100 leukocyt esOrdered By: Dr. Huston on 03-29-2022 Monocytes/100 WBC (Bld) 6.0 % 0-[address] [facility] Blood platelet mean volumeOr dered By: Dr. Huston on 03-29-2022 Platelet mean volume (Bld) [Entitic vol] 10.8 fL 6.2-12.0 [facility] Determination of erythrocyte mean corpuscular volume (MCV)Ordered By: Dr. Huston on 03-29-2022 MCV (RBC) [Entitic vol] 92.0 fL 81-[address] [facility] Gestational diabetes screen 1-hour screen with 50g oral glucose loadOrdered By: Dr. Huston on 03-29-2022 Glucose 1 Hr post 50 g glucose PO [Mass/Vol] 131 mg/dL 70-140 [facility] Hematocrit Auto (Bld) [Volum e fraction]Ordered By: Dr. Huston on 03-29-2022 Hematocrit (Bld) [Volume fraction] 35.7 % 37-47 [facility] Laboratory - Hematology and Cell countsOrdered By: Dr. Huston on 03-29-2022 Erythrocyte distribution width (RBC) [Entitic vol] 40.5 fL 35.1-43.9 [facility] Erythrocyte distribution width (RBC) [Ratio] 12.2 % 11.6-14.6 [facility] Immature granulocytes/100 WBC (Bld) 1.000 % 0.0-0.9 [facility] Comment on above: IG% - Immature Granu locytes (promyelocytes, myelocytes and metamyelocytes) > 1% indicates that a LEFT SHIFT is Present. MCH (RBC) [Entitic mass] 31.2 pg 27.0-32.0 [facility] Nucleated RBC/100 WBC (Bld) [Ratio] 0 % 0-5 [facility] MCHC Auto (RBC) [Mass/Vol]Or dered By: Dr. Huston on 03-29-2022 MCHC (RBC) [Mass/Vol] 33.9 g/dL 32-36 [facility] Platelets bldOrdered By: Dr. Huston on 03-29-2022 Platelets (Bld) [#/Vol] 249 10*3/uL 150-450 [facility] Chlamydia sp identified Org specific cx Nom (Genital specimen)on 01-05-2022 External Chlamydia Screen Negative Negative [facility] Comment on above: previously positive on 10/21/21 Chlamydia trachomatis rRNA d etection by probe and target amplification methodOrdered By: Dr. Huston on 01-05-2022 C. trachomatis rRNA ÁNGEL+probe Ql (Unsp spec) Negative Negative [facility] Laboratory - Microbiology an d Antimicrobial susceptibilityOrdered By: Dr. Huston on 01-05-2022 N. gonorrhoeae DNA ÁNGEL+probe Ql (Unsp spec) Negative Negative [facility] Comment on above: Performed at: =[address] [id number] Director: Emilia Barraza MD, Phone: [phone] No Panel Informationon 01-05 External Gonorrhea Screen Negative Negative [facility] Dr. Huston from [facility] OB called in to verify labs with Ayo MORRISSEY at 1750 in 04/12/22 [facility] Absolute lymphocyte counton 11-04-2021 Lymphocytes Auto (Unsp spec) [#/Vol] 1.75 10*3/uL 0.83-4.51 [facility] Work Phone: Basophil percentageon 2021 Basophils/100 WBC (Bld) 0.6 % 0-[address] [facility] Work Phone: Eosinophils/100 WBC (Bld) 4.1 % 0-5 [facility] Work Phone: Neutrophils (Bld) [#/Vol] 5.7 10*3/uL 2.0-7.7 [facility] Work Phone: Neutrophils/100 WBC (Bld) 68.5 % 47-70 [facility] Work Phone: WBC (Bld) [#/Vol] 8.3 10*3/uL 4.4-11.0 [facility] Work Phone: Blood erythrocytes count (nu mber/volume)on 11-04-2021 RBC (Bld) [#/Vol] 4.30 10*6/uL 4.2-5.4 [facility] Work Phone: Blood hemoglobin measurement (mass/volume)on 11-04-2021 Hemoglobin (Bld) [Mass/Vol] 13.0 g/dL 12.0-15.0 [facility] Work Phone: Blood lymphocytes/100 leukoc yteson 11-04-2021 Lymphocytes/100 WBC (Bld) 21.2 % 19-41 [facility] Work Phone: Blood monocytes/100 leukocyt eson 11-04-2021 Monocytes/100 WBC (Bld) 5.2 % 0-[address] [facility] Work Phone: Blood platelet mean volumeon 11-04-2021 Platelet mean volume (Bld) [Entitic vol] 9.8 fL 6.2-12.0 [facility] Work Phone: Determination of erythrocyte mean corpuscular volume (MCV)on 11-04-2021 MCV (RBC) [Entitic vol] 91.6 fL 81-[address] [facility] Work Phone: HBV surface Ag IA Qlon 11-04 External Hepatitis B Surface Ag Negative Negative, None Detected [facility] [employer] HCV Ab IA Qlon 11-04-2021 [facility] HEPATITIS C ANTIBODY, EXTERNAL RESULT Negative [facility] HIV 1 and HIV-2 antibody ass ay with HIV-1 p24 antigen detectionon 11-04-2021 HIV 1+2 Ab+HIV1 p24 Ag IA Ql Non-Reactive Nonreactive [facility] Work Phone: HIV 1+2 Ab and HIV1 p24 Ag I A.rapid Nom (S/P/Bld)on 11-04-2021 HIV-1/HIV-2 Ab Negative [facility] Hematocrit Auto (Bld) [Volum e fraction]on 11-04-2021 Hematocrit (Bld) [Volume fraction] 39.4 % 37-47 [facility] Work Phone: Laboratory - Hematology and Cell countson 11-04-2021 Erythrocyte distribution width (RBC) [Entitic vol] 40.3 fL 35.1-43.9 [facility] Work Phone: Erythrocyte distribution width (RBC) [Ratio] 12.1 % 11.6-14.6 [facility] Work Phone: Immature granulocytes/100 WBC (Bld) 0.400 % 0.0-0.9 [facility] Work Phone: Comment on above: IG% - Immature Granu locytes (promyelocytes, myelocytes and metamyelocytes) > 1% indicates that a LEFT SHIFT is Present. MCH (RBC) [Entitic mass] 30.2 pg 27.0-32.0 [facility] Work Phone: Nucleated RBC/100 WBC (Bld) [Ratio] 0 % 0-5 [facility] Work Phone: MCHC Auto (RBC) [Mass/Vol]on 11-04-2021 MCHC (RBC) [Mass/Vol] 33.0 g/dL 32-36 [facility] Work Phone: No Panel InformationOrdered By: Sabino Shetty on 11-04-2021 External Rh Factor Positive [facility] Dr. Huston from [facility] OB called in to verify labs with Ayo RN at 1750 in 04/12/22 [facility] No Panel Informationon 11-04 External Rubella IGG Quantitation Positive [facility] Hepatitis B Surface Antigen Non-Reactive Nonreactive [facility] Work Phone: Hepatitis C Antibody Non-Reactive Nonreactive [facility] Work Phone: Comment on above: Non Reactive: < 0.8 Equivocal: >/= 0.8 to < 1.0 Reactive: >/= 1.0The CDC recommends that a reactive/equivocal HCV antibody result be followed up by the HCV Nucleic Acid Amplificationtest (408053) Rubella IgG Antibody Reactive Nonreactive [facility] Work Phone: Comment on above: Antibody Results Int erpretation of Immune Status Non Reactive Presumed Non-Immune Equivocal Equivocal Reactive Presumed Immune Platelets bldon 11-04-2021 Platelets (Bld) [#/Vol] 301 10*3/uL 150-450 [facility] Work Phone: Reagin Ab RPR Ql (S)on 11-04 External RPR Non-Reactive Borderline, Nonreactive, Weakly Reactive, Equivocal [facility] Serum Treponema species anti body detectionon 11-04-2021 Treponema sp Ab Ql (S) Non-Reactive [facility] Work Phone: Serum Varicella zoster virus IgG antibody assay by immunoassay (units/volume)on 11-04-2021 VZV IgG IA Qn (S) 314 index Immune >165 [facility] Work Phone: Comment on above: Negative <135 Equivo zak 135 - 165 Positive >165A positive result generally indicates exposure to thepathogen or administration of specific immunoglobulins,but it is not indication of active infection or stageof disease.Performed at: [facility] [id number] Director: Wei Smith PhD, Phone: [phone] Cervical or vagninal specime n microscopic examination by cytology stain (reported ason 10-21-2021 Cytology report Cyto stain Doc (Cvx/Vag) Comment . [facility] Work Phone: Comment on above: The [...] rRNA ÁNGEL+probe Ql (Unsp spec) Positive Negative [facility] Work Phone: Laboratory - Cytologyon 09-25 Product Management Intern Cyto stain Nom (Cvx/Vag) [ID] Comment . [facility] Work Phone: Comment on above: Zuleyma Westfall, Cyto technologist (ASCP) Laboratory - Microbiology an d Antimicrobial susceptibilityon 10-21-2021 N. gonorrhoeae DNA ÁNGEL+probe Ql (Unsp spec) Negative Negative [facility] Work Phone: Comment on above: Performed at: [facility] [address] [id number] Director: Emilia Barraza MD, Phone: [phone] Laboratory - Miscellaneous t estson 10-21-2021 Service comment (Unsp spec) [Interp] Comment . [facility] Work Phone: Comment on above: This liquid based Th inPrep(R) pap test was screened withthe use of an image guided system. Service comment (Unsp spec) [Interp] . . [facility] Work Phone: No Panel Informationon 10-21 Human Papillomavirus Screen Comment . [facility] Work Phone: Comment on above: The HPV DNA reflex c marcos were not met with this specimenresult therefore, no HPV testing was performed.Performed at: [address] [id number] Director: Emilia Barraza MD, Phone: [phone] Pathology report final diagnosis Narrative Comment . [facility] Work Phone: Comment on above: NEGATIVE FOR INTRAEP ITHELIAL LESION OR MALIGNANCY. Serum or plasma choriogonado tropin detectionon 10-21-2021 HCG ( test) Ql 1755 mIU/mL <4 [facility] Work Phone: Comment on above: hCG levels with Gest ational AgeGestational Age hCG mIU/mL (IU/L)0.2 - 1 week 5 - 501-2 weeks 50 - 5002-3 weeks 100 - 32638-2 weeks 500 - 045584-5 weeks 1000 - 825328-7 weeks 33208 - 100,0006-8 weeks 22021 - 200,0002-3 months 07655 - 100,000 Absolute lymphocyte counton 10-19-2021 Lymphocytes Auto (Unsp spec) [#/Vol] 3.17 10*3/uL 0.83-4.51 [facility] Work Phone: Basophil percentageon 2021 Basophils/100 WBC (Bld) 0.6 % 0-[address] [facility] Work Phone: Chloride [Moles/Vol] 107 mmol/L 98-107 [place] [facility] Work Phone: Eosinophils/100 WBC (Bld) 3.7 % 0-5 [facility] Work Phone: Glucose [Mass/Vol] 98 mg/dL 74-106 [place] [facility] Work Phone: Neutrophils (Bld) [#/Vol] 6.6 10*3/uL 2.0-7.7 [facility] Work Phone: Neutrophils/100 WBC (Bld) 60.6 % 47-70 [facility] Work Phone: Potassium [Moles/Vol] 3.6 mmol/L 3.5-5.1 [place] [facility] Work Phone: Sodium [Moles/Vol] 137 mmol/L 136-145 [facility] Work Phone: [phone] WBC (Bld) [#/Vol] 10.9 10*3/uL 4.4-11.0 [facility]: Basophil percentage 0-5 SEEN /hpf 0-5 [facility] Work Phone: Bilirubin Test strip Ql (U)o n 10-19-2021 Bilirubin Ql (U) Negative Negative [facility] Work Phone: Blood erythrocytes count (nu mber/volume)on 10-19-2021 RBC (Bld) [#/Vol] 4.05 10*6/uL 4.2-5.4 [facility] Work Phone: Blood hemoglobin measurement (mass/volume)on 10-19-2021 Hemoglobin (Bld) [Mass/Vol] 12.7 g/dL 12.0-15.0 [facility] Work Phone: Blood lymphocytes/100 leukoc yteson 10-19-2021 Lymphocytes/100 WBC (Bld) 29.1 % 19-41 [facility] Work Phone: [phone] Blood monocytes/100 leukocyt eson 10-19-2021 Monocytes/100 WBC (Bld) 5.0 % 0-[address] [facility] Work Phone: Blood platelet mean volumeon 10-19-2021 Platelet mean volume (Bld) [Entitic vol] 9.9 fL 6.2-12.0 [facility] Work Phone: Determination of erythrocyte mean corpuscular volume (MCV)on 10-19-2021 MCV (RBC) [Entitic vol] 91.1 fL 81-[address] [facility] Work Phone: Hematocrit Auto (Bld) [Volum e fraction]on 10-19-2021 Hematocrit (Bld) [Volume fraction] 36.9 % 37-47 [facility] Work Phone: Ketones Test strip Ql (U)on 10-19-2021 Ketones Ql (U) Negative Negative [facility] Work Phone: Laboratory - Chemistry and C hemistry - challengeon 10-19-2021 CO2 [Moles/Vol] 26.0 mmol/L 21.0-32.0 [facility] Work Phone: Urea nitrogen/Creatinine [Mass ratio] 19.5 mg/mg 10-20 [facility] Work Phone: Laboratory - Hematology and Cell countson 10-19-2021 Erythrocyte distribution width (RBC) [Entitic vol] 40.5 fL 35.1-43.9 [facility] Work Phone: [phone] Erythrocyte distribution width (RBC) [Ratio] 12.0 % 11.6-14.6 [facility] Work Phone: Immature granulocytes/100 WBC (Bld) 1.000 % 0.0-0.9 [facility] Work Phone: Comment on above: IG% - Immature Granu locytes (promyelocytes, myelocytes and metamyelocytes) > 1% indicates that a LEFT SHIFT is Present. MCH (RBC) [Entitic mass] 31.4 pg 27.0-32.0 [facility] Work Phone: Nucleated RBC/100 WBC (Bld) [Ratio] 0 % 0-5 [facility] Work Phone: MCHC Auto (RBC) [Mass/Vol]on 10-19-2021 MCHC (RBC) [Mass/Vol] 34.4 g/dL 32-36 [facility] Work [facility]: Mucus LM Ql (Urine sed)on Mucus Ql (Urine sed) 0 SEEN /hpf [facility] Work Phone: Nitrite Test strip Ql (U)on 10-19-2021 Nitrite Ql (U) Negative Negative [facility] Work Phone: No Panel Informationon 10-19 Estimated Creatinine Clearance Calc 80.02 ml/min [facility] Work Phone: Estimated GFR (MDRD) Amer 98 mL/min >60 [facility] Work Phone: Comment on above: GFR Calc Estimated GFR (MDRD) Non-Af Amer 81 mL/min >60 [facility] Work Phone: Comment on above: Non- GFR Calc Platelets bldon 10-19-2021 Platelets (Bld) [#/Vol] 292 10*3/uL 150-450 [facility] Work Phone: Protein Test strip Ql (U)on 10-19-2021 Protein Ql (U) Negative Negative [facility] Work Phone: Serum or plasma calcium kemi urement (mass/volume)on 10-19-2021 Calcium [Mass/Vol] 9.1 mg/dL 8.5-10.1 [facility] Work Phone: Serum or plasma choriogonado tropin detectionon 10-19-2021 HCG ( test) Ql 961 mIU/mL <[address] [facility] Work Phone: Comment on above: hCG levels with Gest ational AgeGestational Age hCG mIU/mL (IU/L)0.2 - 1 week 5 - 501-2 weeks 50 - 5002-3 weeks 100 - 37986-5 weeks 500 - 051885-8 weeks 1000 - 040347-6 weeks 36330 - 100,0006-8 weeks 26144 - 200,0002-3 months 41402 - 100,000 Serum or plasma creatinine m easurement (mass/volume)on 10-19-2021 Creatinine [Mass/Vol] 0.92 mg/dL 0.55-1.02 [facility] Work Phone: Comment on above: The validity of the calculated GFR & GFRAA in patients over 70 years has not been determined. Clinical correlation is essential. Serum or plasma urea nitroge n measurement (mass/volume)on 10-19-2021 Urea nitrogen [Mass/Vol] 18 mg/dL 7-18 [facility] Work Phone: Squamous epithelial cells de tection in urine sediment by light microscopyon 10-19-2021 Epithelial cells.squamous LM Ql (Urine sed) 0-5 SEEN /hpf 5-10 [facility] Work Phone: Thin prep Papanicolaou smear with manual screeningon 10-19-2021 Thin prep Papanicolaou smear with manual screening 4 5-15 [facility] Work Phone: Urine blood detectionon 09-25 RBC Ql (U) 250 /ul Negative [facility] Work Phone: RBC Ql (U) 0-5 SEEN /hpf 0-5 [facility] Work Phone: Urine clarityon 10-19-2021 Clarity (U) Clear Clear [facility] Work Phone: Urine color determinationon 10-19-2021 Color (U) Straw Yellow [facility] Work Phone: Urine glucose detectionon Glucose Ql (U) Normal mg/dl Normal [facility] Work Phone: Urine leukocyte esterase det ection by dipstickon 10-19-2021 Leukocyte esterase Test strip Ql (U) 25 /ul Negative [facility] Work Phone: Urine pHon 10-19-2021 pH (U) 6.0 [pH] 5.0 - 8.0 [facility] Work Phone: Urine sediment bacteria coun t by microscopy (number/high power field)on 10-19-2021 Bacteria LM.HPF (Urine sed) [#/Area] 1 /[HPF] None Seen [facility] Work Phone: Urine specific gravity measu rementon 07-26-2022 Specific gravity (U) [Rel density] 1.015 1.002-1.030 [facility] Work Phone: Urobilinogen Auto test strip Ql (U)on 10-19-2021 Urobilinogen Ql (U) Normal mg/dl Normal [facility] Work Phone: ZINCon 06-23-2021 ZINC 92 ug/dL Normal 44-115 [facility] Comment on above: Result Comment: Dete ction Limit = 5 Test(s) 366677-Ksiz, Plasma or Serum was developed and its performance characteristics determined by [employer]. It has not been cleared or approved by the Food and Drug Administration. Performed By: #### T YURIDIAS #### [address] [address] VITAMIN D 1,25-DIHYDROXYon 0 06-20-2021 VITAMIN D 1,25-DIHYDROXY 41.4 pg/mL Normal 19.9-79.3 [facility] Comment on above: Result Comment: INTE RPRETIVE INFORMATION: Vitamin D, 1,25-Dihydroxy This test is primarily indicated during patient evaluation for hypercalcemia and renal failure. A normal result does not rule out Vitamin D deficiency. The recommended test for diagnosing Vitamin D deficiency is Vitamin D 25-hydroxy. Performed By: [email or web address] [address] [place] [address] Front Office Representative: Irina Styles MD Performed By: #### V TDDI #### [employer] [address] [place] [address] ANTITHYROID PEROX. ABon - ANTITHYROID PEROX. AB <28 Normal [facility] Comment on above: Result Comment: Nega tive: <=60 U/mL Positive: >60 U/mL Performed By: #### T POA2 #### [facility] [address] [place] [address] TRIIODOTHYRONINEon TRIIODOTHYRONINE 120 ng/dL Normal 80 - 210 [facility] Comment on above: Performed By: #### T HYDS #### [address] [address] CBC AND DIFFERENTIALon 06-17 Basophils (Bld) [#/Vol] 0.10 10*3/uL Normal 0.00 - 0.1 0 [facility] Comment on above: Performed By: #### T HYDS #### [address] [address] Basophils/100 WBC (Bld) 0.8 % Normal 0.0 - 2.0 [facility] Comment on above: Performed By: #### T HYDS #### [address] [address] Eosinophils (Bld) [#/Vol] 0.80 10*3/uL High 0.00 - 0.70 [facility] Comment on above: Performed By: #### T HYDS #### [address] [address] Eosinophils/100 WBC (Bld) 7.5 % Normal 0.0 - 6.0 [facility] Comment on above: Performed By: #### T HYDS #### [address] [address] Erythrocyte distribution width (RBC) [Ratio] 13.7 % Normal 11.5 - 14.5 [facility] Comment on above: Performed By: #### T HYDS #### [address] [address] Hematocrit (Bld) [Volume fraction] 44.7 % Normal 36.0 - 46.0 [facility] Comment on above: Performed By: #### T HYDS #### [address] [address] Hemoglobin (Bld) [Mass/Vol] 15.1 g/dL Normal 12.0 - 16.0 [facility] Comment on above: Performed By: #### T HYDS #### [address] [address] Lymphocytes (Bld) [#/Vol] 2.80 10*3/uL Normal 1.20 - 4.80 [facility] Comment on above: Performed By: #### T HYDS #### [address] [address] Lymphocytes/100 WBC (Bld) 26.2 % Normal 13.0 - 44.0 [facility] Comment on above: Performed By: #### T HYDS #### [address] [address] MCHC (RBC) [Mass/Vol] 33.7 g/dL Normal 32.0 - 36.0 [facility] Comment on above: Performed By: #### T HYDS #### [address] [address] MCV (RBC) [Entitic vol] 91 fL Normal 80 - 100 U [facility] Comment on above: Performed By: #### T HYDS #### [address] [address] Monocytes (Bld) [#/Vol] 0.40 10*3/uL Normal 0.10 - 1.0 0 [facility] Comment on above: Performed By: #### T HYDS #### [address] [address] Monocytes/100 WBC (Bld) 4.1 % Normal 2.0 - 10.0 [facility] Comment on above: Performed By: #### T HYDS #### [address] [address] Neutrophils (Bld) [#/Vol] 6.60 10*3/uL Normal 1.20 - 7.70 [facility] Comment on above: Result Comment: Perc ent differential counts (%) should be interpreted in the context of the absolute cell counts (cells/L). Performed By: #### T HYDS #### [address] [address] Neutrophils/100 WBC (Bld) 61.4 % Normal 40.0 - 80.0 [facility] Comment on above: Performed By: #### T HYDS #### [address] [address] NUCLEATED RBC 0.7 /100 WBC Normal [facility] Comment on above: Performed By: #### T HYDS #### [address] [address] Platelets (Bld) [#/Vol] 305 10*3/uL Normal 150 - 450 [facility] Comment on above: Performed By: #### T HYDS #### [address] [address] RBC 4.89 x10E12/L Normal 4.00 - 5.20 [facility] Comment on above: Performed By: #### T HYDS #### [address] [address] WBC (Bld) [#/Vol] 10.7 10*3/uL Normal 4.4 - 11.3 [facility] Comment on above: Performed By: #### T HYDS #### [address] [address] COMPREHENSIVE PANELon 06-17- 2021 Albumin [Mass/Vol] 4.8 g/dL Normal 3.4 - 5.0 [facility] Comment on above: Performed By: #### C MP #### [address] [address] ALP [Catalytic activity/Vol] 52 U/L Normal 33 - 110 [facility] Comment on above: Performed By: #### C MP #### [address] [address] ALT [Catalytic activity/Vol] 15 U/L Normal 7 - 45 [facility] Comment on above: Result Comment: Dulce ents treated with Sulfasalazine may generate falsely decreased results for ALT. Performed By: #### C MP #### [address] [address] Anion gap [Moles/Vol] 13 mmol/L Normal 10 - 20 [facility] Comment on above: Performed By: #### C MP #### [address] [address] AST [Catalytic activity/Vol] 22 U/L Normal 9 - 39 [facility] Comment on above: Performed By: #### C MP #### [address] [address] Bilirubin [Mass/Vol] 0.5 mg/dL Normal 0.0 - 1.2 [facility] Comment on above: Performed By: #### C MP #### [address] [address] Calcium [Mass/Vol] 9.7 mg/dL Normal 8.6 - 10.3 [facility] Comment on above: Performed By: #### C MP #### [address] [address] Chloride [Moles/Vol] 107 mmol/L Normal 98 - 107 [facility] Comment on above: Performed By: #### C MP #### [address] [address] Creatinine [Mass/Vol] 0.74 mg/dL Normal 0.50 - 1.05 [facility] Comment on above: Performed By: #### C MP #### [address] [address] eGFR FEMALE >90 Normal >90 [facility] Comment on above: Result Comment: CALC ULATIONS OF ESTIMATED GFR ARE PERFORMED USING THE 2020 CKD-EPI STUDY REFIT EQUATION WITHOUT THE RACE VARIABLE FOR THE IDMS-TRACEABLE CREATININE METHODS. https://jasn.asnjournals.org/content//ASN.2020 084164 Performed By: #### C MP #### [address] [address] Glucose [Mass/Vol] 74 mg/dL Normal 74 - 99 [facility] Comment on above: Performed By: #### C MP #### [address] [address] HCO3 (Bld) [Moles/Vol] 24 mmol/L Normal 21 - 32 [facility] Comment on above: Performed By: #### C MP #### [address] [address] Potassium [Moles/Vol] 4.0 mmol/L Normal 3.5 - 5.3 [facility] Comment on above: Performed By: #### C MP #### [address] [address] Protein [Mass/Vol] 7.7 g/dL Normal 6.4 - 8.2 [facility] Comment on above: Performed By: #### C MP #### [address] [address] Sodium [Moles/Vol] 140 mmol/L Normal 136 - 145 [facility] Comment on above: Performed By: #### C MP #### [address] [address] Urea nitrogen [Mass/Vol] 12 mg/dL Normal 6 - 23 [facility] Comment on above: Performed By: #### C MP #### [address] [address] FERRITINon 06-17-2021 FERRITIN 53 ug/L Normal 8 - 150 [facility] Comment on above: Performed By: #### F ERRI #### [address] [address] FOLATE, SERUMon 06-17-2021 Folate [Mass/Vol] 22.5 ng/mL Normal >5.0 [facility] Comment on above: Result Comment: Low <3.4 Borderline 3.4-5.0 Normal >5.0 . Patients receiving more than 5 mg/day of biotin may have interference in test results. A sample should be taken no sooner than eight hours after previous dose. Contact the testing laboratory for additional information. Performed By: #### F OLA2 #### [address] [address] THYROXINE,FREEon 06-17-2021 THYROXINE,FREE 0.79 ng/dL Normal 0.61 - 1.12 [facility] Comment on above: Result Comment: Thyr oxine Free testing is performed using different testing methodology at [facility] than at other [facility]. Direct result comparisons should only be [...] draw. Performed By: #### T 4FRE #### [address] [address] TSHon 06-17-2021 TSH Qn 2.01 m[IU]/L Normal 0.44 - 3.98 [facility] Comment on above: Result Comment: TSH testing is performed using different testing methodology at [facility] than at other [facility]. Direct result comparisons should only be made within the same method. Performed By: #### T HYDS #### [address] [address] VITAMIN B12on 06-17-2021 Cobalamin (Vitamin B12) [Mass/Vol] 457 pg/mL Normal 211 - 911 [facility] Comment on above: Performed By: #### T HYDS #### [address] [address] VITAMIN D, 25-HYDROXYon 05-26 VITAMIN D, 25-HYDROXY 44 ng/mL Normal [facility] Comment on above: Result Comment: . DEFICIENCY: < 20 NG/ML INSUFFICIENCY: 20-29 NG/ML SUFFICIENCY: 30-100 NG/ML THIS ASSAY ACCURATELY QUANTIFIES THE SUM OF VITAMIN D3, 25-HYDROXY AND VIT D2,25-HYDROXY. Performed By: #### T HYDS #### [address] [address] Office Visiton 05-27-2021 Follow-up visit Diagnoses/Problems Anxiety [...] Vital Signs Recorded: 27May2021 09:00AM Heart Rate61 Rrnbtwzf464 Ugwagqwjz52 Height5 ft 3 in Tnnctg292 lb BMI Fiuyrxxdnp70.55 kg/m2 BSA Calculated1.53 Tobacco Useb) No O2 Farvmsiyto91 Physical Exam General: Alert and oriented, No acute distress. Psychiatric: Cooperative, Appropriate mood AND affect. Signatures Electronically signed by : Yoli Moreland MD; May 27 2021 9:22AM EST (Author) Normal [employer] Tobacco Screening.on 022 Tobacco use status CPHS b) No [facility] Work Phone: Office Visiton [...] daily Vitals Vital Signs Recorded: 28Apr2021 08:04AM Kgzgstxvwbe11.8 F Uzpmspug842 Uznsvnzkk77 Height5 ft 3 in Enmtuk593 lb BMI Wiwjyqlsfv08.9 kg/m2 BSA Calculated1.55 Tobacco Useb) No Physical Exam General: Alert and oriented, No acute distress. Psychiatric: Cooperative, Appropriate mood AND affect. Signatures Electronically signed by : Yoli Moreland MD; Apr 29 2021 5:00PM EST (Author) Normal [employer] Tobacco Screening.on 022 Tobacco use status CPHS b) No [facility] Work Phone: Office Visiton [...] 1 TABLET DAILY. Vitals Vital Signs Recorded: [id number] 08:19AM Fcofkfribhg56.7 F Heart Rate78 Mwzqnjmt411 Prjjaotha22 Height5 ft 3 in Atibyk103 lb 4 oz BMI Dhqykdklau06.83 kg/m2 BSA Calculated1.57 Tobacco Useb) No O2 Ahxspvqftq92 Physical Exam General: Alert and oriented, No acute distress. Anxious/tearful Psychiatric: Cooperative, Appropriate mood AND affect. Results/Data Complete Blood Count + [id number] 09:31AMYoli Moreland [Mar 05, 2021 3:08PM Yoli Moreland] appt 03/11 Test NameResultFlagReference White Blood Cell Count5.5 x10E9/L4.4 - 11.3 Red Blood Cell Count4.80 x10E12/LSee Below Reference Range: 4.00 - 5.20 Nucleated Erythrocyte Count0.1 /100 WBC Ndgonemknf99.5 g/dLSee Below Reference Range: 12.0 - 16.0 HCT44.4 %See Below Reference Range: 36.0 - 46.0 MCV93 fL80 - 100 MCHC32.6 g/dLSee Below Reference Range: 32.0 - 36.0 Platelet Djmni307 x10E9/L150 - 450 RDW-CV12.9 %See Below Reference [...] Reference Range: 0.00 - 0.10 Comprehensive Metabolic [id number] 09:Yoli Moreland [Mar 05, 2021 3:08PM Yoli Moreland] appt 03/11 Test NameResultFlagReference Glucose, Serum82 mg/dL74 - 99 Sodium, Dhwxk236 mmol/L136 - 145 POTASSIUM3.7 mmol/L3.5 - 5.3 Chloride, Kysoc577 mmol/L98 - 107 Bicarbonate, Serum26 mmol/L21 - 32 Anion Gap, Serum13 mmol/L10 - 20 Blood Urea Nitrogen, Serum16 mg/dL6 - 23 CREATININE0.82 mg/dLSee Below Reference Range: 0.50 - 1.05 Calcium, Serum10.0 mg/dL8.6 - 10.3 Albumin, Serum4.9 g/dL3.4 - 5.0 ALKALINE DVWKMHVNQJI32 U/L33 - 110 Protein, Total Serum7.4 g/dL6.4 [...] TSH WITH REFLEX TO FREE T4 IF [id number] 09:Yoli Moreland [Mar 05, 2021 3:08PM Yoli Moreland] appt 03/11 Test NameResultFlagReference Thyroid Stimulating Hormone, Serum1.28 mIU/LSee Below Reference Range: 0.44 - 3.98 TSH testing is performed using different testing methodology at [facility] than at other [facility]. Direct result comparisons should only be made within the same method. Vitamin B12, Upwfr29Xob4232 09:31AMLoYoli sánchez [Mar 05, 2021 3:08PM Yoli Moreland] appt 03/11 Test NameResultFlagReference Vitamin B12, Zljsg636 pg/mL211 - 911 Magnesium, Fjavo86Dri2700 09:31AMJocelyngonzalo Yoli [Mar 05, 2021 3:08PM Yoli Moreland] appt 03/11 Test NameResultFlagReference Magnesium, Serum2.13 mg/dLSee Below Reference Range: 1.60 - 2.40 Signatures Electronically signed by : Yoli Moreland MD; Mar 12 2021 8:49AM EST (Author) Normal [employer] Tobacco Screening.on 021 Tobacco use status CPHS b) No [facility] Work Phone: CBC AND DIFFERENTIALon 02-25 Basophils (Bld) [#/Vol] 0.00 10*3/uL Normal 0.00 - 0.1 0 [facility] Comment on above: Performed By: #### C BCDF #### [address] [address] Basophils/100 WBC (Bld) 0.9 % Normal 0.0 - 2.0 [facility] Comment on above: Performed By: #### C BCDF #### [address] [address] Eosinophils (Bld) [#/Vol] 0.30 10*3/uL Normal 0.00 - 0.70 [facility] Comment on above: Performed By: #### C BCDF #### [address] [address] Eosinophils/100 WBC (Bld) 5.1 % Normal 0.0 - 6.0 [facility] Comment on above: Performed By: #### C BCDF #### [address] [address] Erythrocyte distribution width (RBC) [Ratio] 12.9 % Normal 11.5 - 14.5 [facility] Comment on above: Performed By: #### C BCDF #### [address] [address] Hematocrit (Bld) [Volume fraction] 44.4 % Normal 36.0 - 46.0 [facility] Comment on above: Performed By: #### C BCDF #### [address] [address] Hemoglobin (Bld) [Mass/Vol] 14.5 g/dL Normal 12.0 - 16.0 [facility] Comment on above: Performed By: #### C BCDF #### [address] [address] Lymphocytes (Bld) [#/Vol] 1.80 10*3/uL Normal 1.20 - 4.80 [facility] Comment on above: Performed By: #### C BCDF #### [address] [address] Lymphocytes/100 WBC (Bld) 32.4 % Normal 13.0 - 44.0 [facility] Comment on above: Performed By: #### C BCDF #### [address] [address] MCHC (RBC) [Mass/Vol] 32.6 g/dL Normal 32.0 - 36.0 [facility] Comment on above: Performed By: #### C BCDF #### [address] [address] MCV (RBC) [Entitic vol] 93 fL Normal 80 - 100 [facility] Comment on above: Performed By: #### C BCDF #### [address] [address] Monocytes (Bld) [#/Vol] 0.30 10*3/uL Normal 0.10 - 1.0 0 [facility] Comment on above: Performed By: #### C BCDF #### [address] [address] Monocytes/100 WBC (Bld) 5.7 % Normal 2.0 - 10.0 [facility] Comment on above: Performed By: #### C BCDF #### [address] [address] Neutrophils (Bld) [#/Vol] 3.10 10*3/uL Normal 1.20 - 7.70 [facility] Comment on above: Result Comment: Perc ent differential counts (%) should be interpreted in the context of the absolute cell counts (cells/L). Performed By: #### C BCDF #### [address] [address] Neutrophils/100 WBC (Bld) 55.9 % Normal 40.0 - 80.0 [facility] Comment on above: Performed By: #### C BCDF #### [address] [address] NUCLEATED RBC 0.1 /100 WBC Normal [facility] Comment on above: Performed By: #### C BCDF #### [address] [address] Platelets (Bld) [#/Vol] 275 10*3/uL Normal 150 - 450 [facility] Comment on above: Performed By: #### C BCDF #### [address] [address] RBC 4.80 x10E12/L Normal 4.00 - 5.20 [facility] Comment on above: Performed By: #### C BCDF #### [address] [address] WBC (Bld) [#/Vol] 5.5 10*3/uL Normal 4.4 - 11.3 [facility] Comment on above: Performed By: #### C BCDF #### [address] [address] COMPREHENSIVE PANELon 2020 Albumin [Mass/Vol] 4.9 g/dL Normal 3.4 - 5.0 [facility] Comment on above: Performed By: #### C MP #### [address] [address] ALP [Catalytic activity/Vol] 46 U/L Normal 33 - 110 [facility] Comment on above: Performed By: #### C MP #### [address] [address] ALT [Catalytic activity/Vol] 12 U/L Normal 7 - 45 [facility] Comment on above: Result Comment: Dulce ents treated with Sulfasalazine may generate falsely decreased results for ALT. Performed By: #### C MP #### [address] [address] Anion gap [Moles/Vol] 13 mmol/L Normal 10 - 20 [facility] Comment on above: Performed By: #### C MP #### [address] [address] AST [Catalytic activity/Vol] 18 U/L Normal 9 - 39 [facility] Comment on above: Performed By: #### C MP #### [address] [address] Bilirubin [Mass/Vol] 0.9 mg/dL Normal 0.0 - 1.2 [facility] Comment on above: Performed By: #### C MP #### [address] [address] Calcium [Mass/Vol] 10.0 mg/dL Normal 8.6 - 10.3 [facility] Comment on above: Performed By: #### C MP #### [address] [address] Chloride [Moles/Vol] 103 mmol/L Normal 98 - 107 [facility] Comment on above: Performed By: #### C MP #### [address] [address] Creatinine [Mass/Vol] 0.82 mg/dL Normal 0.50 - 1.05 [facility] Comment on above: Performed By: #### C MP #### [address] [address] GFR- AM. >60 Normal >60 [facility] Comment on above: Result Comment: CALC ULATIONS OF ESTIMATED GFR ARE PERFORMED USING THE MDRD STUDY EQUATION FOR THE IDMS-TRACEABLE CREATININE METHODS. CLIN CHEM 2007;53:766-72 Performed By: #### C MP #### [address] [address] GFR-NON AM. >60 Normal >60 [facility] Comment on above: Performed By: #### C MP #### [address] [address] Glucose [Mass/Vol] 82 mg/dL Normal 74 - 99 [facility] Comment on above: Performed By: #### C MP #### [address] [address] HCO3 (Bld) [Moles/Vol] 26 mmol/L Normal 21 - 32 [facility] Comment on above: Performed By: #### C MP #### [address] [address] Potassium [Moles/Vol] 3.7 mmol/L Normal 3.5 - 5.3 [facility] Comment on above: Performed By: #### C MP #### [address] [address] Protein [Mass/Vol] 7.4 g/dL Normal 6.4 - 8.2 [facility] Comment on above: Performed By: #### C MP #### [address] [address] Sodium [Moles/Vol] 138 mmol/L Normal 136 - 145 [facility] Comment on above: Performed By: #### C MP #### [address] [address] Urea nitrogen [Mass/Vol] 16 mg/dL Normal 6 - 23 [facility] Comment on above: Performed By: #### C MP #### [address] [address] Complete Blood Count + Sherice kinsey 02-25-2021 Basophils/100 WBC (Bld) 0.9 % 0.0 - 2.0 [facility] 205 DO Work Phone: Erythrocyte distribution width (RBC) [Ratio] 12.9 % See Below [facility] [employer] [facility] 205 DO Work Phone: Comment on above: Reference Range: 11. 5 - 14.5 Hematocrit (Bld) [Volume fraction] 44.4 % See Below [facility] 205 DO Work Phone: Comment on above: Reference Range: 36. 0 - 46.0 Hemoglobin (Bld) [Mass/Vol] 14.5 g/dL See Below [facility] 205 DO Work Phone: Comment on above: Reference Range: 12. 0 - 16.0 Lymphocytes/100 WBC (Bld) 32.4 % See Below [facility] 205 DO Work Phone: Comment on above: Reference Range: 13. 0 - 44.0 MCHC (RBC) [Mass/Vol] 32.6 g/dL See Below [facility] 205 DO Work Phone: Comment on above: Reference Range: 32. 0 - 36.0 MCV (RBC) [Entitic vol] 93 fL 80 - 100 [facility] 205 DO Work Phone: Monocytes/100 WBC (Bld) 5.7 % 2.0 - 10.0 M [facility] 205 DO Work Phone: Neutrophils/100 WBC (Bld) 55.9 % See Below [facility] 205 DO Work Phone: Comment on above: Reference Range: 40. 0 - 80.0 Platelets (Bld) [#/Vol] 275 10*3/uL 150 - 450 [facility] 205 DO Work Phone: RBC (Bld) [#/Vol] 4.80 {x10E12/L} See Below [facility] 205 DO Work Phone: Comment on above: Reference Range: 4.0 0 - 5.20 WBC (Bld) [#/Vol] 5.5 10*3/uL 4.4 - 11.3 [facility] Work Phone: Complete Blood Count + Differential 0.00 {x10E9/L} See Below [facility] Work Phone: Comment on above: Reference Range: 0.0 0 - 0.10 Complete Blood Count + Differential 0.30 {x10E9/L} See Below [facility] Work Phone: Comment on above: Reference Range: 0.0 0 - 0.70 Reference Range: 0.1 0 - 1.00 Complete Blood Count + Differential 1.80 {x10E9/L} See Below [facility] Work Phone: Comment on above: Reference Range: 1.2 0 - 4.80 Complete Blood Count + Differential 3.10 {x10E9/L} See Below [facility] Work Phone: Comment on above: Reference Range: 1.2 0 - 7.70 Percent differential counts (%) should be interpreted in the context of the absolute cell counts (cells/L). Complete Blood Count + Differential 5.1 % 0.0 - 6.0 [facility] Work Phone: Complete Blood Count + Differential 0.1 {/100_WBC} [facility] [place] [address] DO Work Phone: Laboratory - Chemistry and C hemistry - challengeon 02-25-2021 Albumin BCP dye [Mass/Vol] 4.9 g/dL 3.4 - 5.0 [facility] Work Phone: ALP [Catalytic activity/Vol] 46 U/L 33 - 110 [facility] 205 DO Work Phone: ALT With P-5'-P [Catalytic activity/Vol] 12 U/L 7 - 45 [facility] 205 DO Work Phone: Comment on above: Patients treated wit h Sulfasalazine may generate falsely decreased results for ALT. Anion gap [Moles/Vol] 13 mmol/L 10 - 20 [facility] 205 DO Work Phone: AST With P-5'-P [Catalytic activity/Vol] 18 U/L 9 - 39 -[facility] 205 DO Work Phone: Bilirubin [Mass/Vol] 0.9 mg/dL 0.0 - 1.2 [facility] 205 DO Work Phone: Calcium [Mass/Vol] 10.0 mg/dL 8.6 - 10.3 -Cla belgica t [facility] 205 DO Work Phone: Chloride [Moles/Vol] 103 mmol/L 98 - 107 -C [facility] 205 DO Work Phone: CO2 [Moles/Vol] 26 mmol/L 21 - 32 [facility] 205 DO Work Phone: Creatinine [Mass/Vol] 0.82 mg/dL See Below - [facility] [facility] DO Work Phone: Comment on above: Reference Range: 0.5 0 - 1.05 Glucose [Mass/Vol] 82 mg/dL 74 - 99 MP-Cla belgica t [facility] 205 DO Work Phone: Potassium [Moles/Vol] 3.7 mmol/L 3.5 - 5.3 MP- Claremon t [facility] Work Phone: Protein [Mass/Vol] 7.4 g/dL 6.4 - 8.2 Crys davidson [facility] Work Phone: Sodium [Moles/Vol] 138 mmol/L 136 - 145 [facility] Work Phone: TSH Qn 1.28 m[IU]/L See Below Marely davidson [facility] Work Phone: Comment on above: Reference Range: 0.4 4 - 3.98 TSH testing is performed using different testing methodology at [facility] than at other [facility]. Direct result comparisons should only be made within the same method. Urea nitrogen [Mass/Vol] 16 mg/dL 6 - 23 -Weston davidson [facility] Work Phone: MAGNESIUMon 02-25-2021 Magnesium [Mass/Vol] 2.13 mg/dL Normal 1.60 - 2.40 [facility] Comment on above: Performed By: #### M G #### [facility] [address] [place] [address] Magnesium, Serumon Magnesium [Mass/Vol] 2.13 mg/dL See Below Bienvenido davidson [facility] Work Phone: Comment on above: Reference Range: 1.6 0 - 2.40 No Panel Informationon 02-25 >60 >60 [facility] [place] [address] DO Work Phone: Comment on above: CALCULATIONS [...] Differential; Status:In Progress - Specimen/Data Collected; Done: [id number] Comprehensive Metabolic Panel; Status:In Progress - Specimen/Data Collected; Done: [id number] Magnesium, Serum; Status:In Progress - Specimen/Data Collected; Done: [id number] TSH WITH REFLEX TO FREE T4 IF ABNORMAL; Status:In Progress - Specimen/Data Collected; Done: [id number] Vitamin B12, Serum; Status:In Progress - Specimen/Data Collected; Done: [id number] SocHx: Former smoker Tobacco Use Screening; Status:Complete; Done: [id number] Provider Impressions Will check some labs and [...] AM Vitals Vital Signs Recorded: 25Feb2021 08:51AM Tgersvolwad15.2 F Heart Olmj634 Xulhctvn983 Gglebfqfr69 Height5 ft 3 in Tgrhjl437 lb 4 oz BMI Vpmqoglxsf93.83 kg/m2 BSA Calculated1.57 Tobacco Useb) No O2 Eootvzlsve76 Physical Exam General: Alert and oriented, No [...] Qn 1.28 m[IU]/L Normal 0.44 - 3.98 [facility] Comment on above: Result Comment: TSH testing is performed using different testing methodology at [facility] than at other [facility]. Direct result comparisons should only be made within the same method. Performed By: #### T HYDS #### [place] [address] Tobacco Screening.on 021 Tobacco use status CPHS b) No M [facility] Work Phone: VITAMIN B12on 02-25-2021 Cobalamin (Vitamin B12) [Mass/Vol] 346 pg/mL Normal 211 - 911 [facility] Comment on above: Performed By: #### T HYDS #### [address] [address] Vitamin B12, Serumon 021 Cobalamin (Vitamin B12) [Mass/Vol] 346 pg/mL 211 - 911 [facility] 205 DO Work Phone: CORONAVIRUS 2019 BY PCRon SARS-CoV-2 (COVID-19) RNA ÁNGEL+probe Ql (Unsp spec) Not detected Normal Not Detected [facility] Comment on above: Result Comment: . This test has received FDA Emergency Use Authorization (EUA) and has been verified by [facility]. This test is only authorized for the duration of time that circumstances exist to justify the authorization of the emergency use of in vitro diagnostic tests for the detection of SARS-CoV-2 virus and/or diagnosis of COVID-19 infection under section 564(b)(1) of the Act, 21 U.S.C. 360bbb-3(b)(1), unless the authorization is terminated or revoked sooner. [facility] is certified under CLIA-88 as qualified to perform high complexity testing. Testing is performed in the [facility] laboratory located at [address] [place] [address]. SARS-CoV-2/Flu/RSV Multiplex Test: Fact sheet for providers: https://www.fda.gov/media/333735/download Fact sheet for patients: https://www.fda.gov/media/831019/download Performed By: #### C OV19 #### [place] [address] Lab Specimen Source Nasal, Nasopharyngeal Normal [facility] Comment on above: Performed By: #### C OV19 #### [place] [address] Covid 19 Resultson 1 SARS-CoV-2 (COVID-19) RNA [...] You may also be contacted by the [facility] to see if any of your close [...] or Naproxen (Aleve) can also be used. Ewaq-qvc-sivionz cough and cold medicines can be used according to the instructions on the package. Some hsce-rvh-rlydgry medicines also contain acetaminophen. Make sure you [...] water are not available, use alcohol-based hand commercial credit analyst. Avoid touching your eyes, nose, and mouth [...] 24 jeremy (more content not included)... Normal [facility] Provider Note - ED v2on 05-0 Provider [...] documented data. SIGNIFICANT EVENTS: No documented data. CONSUMER SERVICES ADVISOR: Is : no(1) Is : no(1) REVIEW OF SYSTEMS ENMT Throat/Neck: (Foreign body in throat) POSITIVE for: dysphagia RESULTS/VITAL SIGNS VITAL SIGNS: T PRBP SpO2O2(LPM) %FiO2 Method 25-Jul-2020 01:00:00-6442118/67 98 room air, no respiratory support 25-Jul-2020 00:30:00-7777345/79 98 room air, no respiratory support 24-Jul-2020 23:30:00-2549943/74 100 room air, no respiratory support 24-Jul-2020 23:00:00-7607421/81 99 room air, no respiratory support 24-Jul-2020 22:30:00-9545788/85 100 room air, no respiratory support 24-Jul-2020 22:11:00-36.744091502/89 99 PHYSICAL EXAM CONSTITUTIONAL: Well appearing, well [...] From Triage - ED 24-Jul-2020 22:11 Normal [facility] Risk Screen - Adult Emergenc yon 07-25-2020 [...] Communicatenone Learning Preferencesaudio Cultural Considerationsnone Developmental Considerationsnone Rastafarian Considerationsnone Learning Assessment (Other Learner): Learning Assessment (Other Learner): Other learner availableno Pressure Injury/TB/Substance: Pressure Injury: Pressure Injury Present on Admissionno Do you have a coughno Admission Risk Screen: Significant IndicatorsComplete CAGE: CAGE: Is this an injured patient at a Trauma Center ([facility]/[place]): no Electronic Signatures: Denita Trivedi (RN) (Signed 24-Jul-2020 22:44) Authored: Preferred Language, Advanced Directives, Family Violence Adult, Learning Assessment (Patient), Learning Assessment (Other Learner), Pressure Injury/TB/Substance, Pressure Injury, CAGE Last Updated: 24-Jul-2020 22:44 by Denita Trivedi (RN) Located Within [facility] Triage - EDon 07-25-2020 Triage - ED [...] BMI (kg/m2): 21.289 Calculated BSA (m2) 1.56 Jenner Coma Scale: Best Eye Response: (E4) spontaneous Best Motor Response: (M6) obeys commands Best Verbal Response: (V5) oriented Harley Score: 15 Mask applied: yes Last menstrual period: 03-Jul-2020 CONSUMER SERVICES ADVISOR History: control Patient has homicidal thoughts: no [...] 24-Jul-2020 22:15 by Giuseppe Coleman (GHANSHYAM) Normal [facility] HCG,URINEon 01-06-2020 Beta HCG ( test) Ql (U) Negative Normal Negative [facility] Comment on above: Performed By: #### H CGU #### [place] [address] [address] [place] [address] CBC AND DIFFERENTIALon 11-20 Basophils (Bld) [#/Vol] 0.10 10*3/uL Normal 0.00 - 0.1 0 [facility] Comment on above: Performed By: #### C BCDF #### [address] [address] Basophils/100 WBC (Bld) 1.0 % Normal 0.0 - 2.0 [facility] Comment on above: Performed By: #### C BCDF #### [address] [address] Eosinophils (Bld) [#/Vol] 0.60 10*3/uL Normal 0.00 - 0.70 [facility] Comment on above: Performed By: #### C BCDF #### [address] [address] Eosinophils/100 WBC (Bld) 9.6 % Normal 0.0 - 6.0 [facility] Comment on above: Performed By: #### C BCDF #### [address] [address] Erythrocyte distribution width (RBC) [Ratio] 13.5 % Normal 11.5 - 14.5 [facility] Comment on above: Performed By: #### C BCDF #### [address] [address] Hematocrit (Bld) [Volume fraction] 42.0 % Normal 36.0 - 46.0 [facility] Comment on above: Performed By: #### C BCDF #### [address] [address] Hemoglobin (Bld) [Mass/Vol] 13.7 g/dL Normal 12.0 - 16.0 [facility] Comment on above: Performed By: #### C BCDF #### [address] [address] Lymphocytes (Bld) [#/Vol] 2.20 10*3/uL Normal 1.20 - 4.80 [facility] Comment on above: Performed By: #### C BCDF #### [address] [address] Lymphocytes/100 WBC (Bld) 37.0 % Normal 13.0 - 44.0 [facility] Comment on above: Performed By: #### C BCDF #### [address] [address] MCHC (RBC) [Mass/Vol] 32.5 g/dL Normal 32.0 - 36.0 [facility] Comment on above: Performed By: #### C BCDF #### [address] [address] MCV (RBC) [Entitic vol] 92 fL Normal 80 - 100 S [facility] Comment on above: Performed By: #### C BCDF #### [address] [address] Monocytes (Bld) [#/Vol] 0.30 10*3/uL Normal 0.10 - 1.0 0 [facility] Comment on above: Performed By: #### C BCDF #### [address] [address] Monocytes/100 WBC (Bld) 4.8 % Normal 2.0 - 10.0 S [facility] Comment on above: Performed By: #### C BCDF #### [address] [address] Neutrophils (Bld) [#/Vol] 2.80 10*3/uL Normal 1.20 - 7.70 [facility] Comment on above: Result Comment: Perc ent differential counts (%) should be interpreted in the context of the absolute cell counts (cells/L). Performed By: #### C BCDF #### [address] [address] Neutrophils/100 WBC (Bld) 47.6 % Normal 40.0 - 80.0 [facility] Comment on above: Performed By: #### C BCDF #### [address] [address] NUCLEATED RBC 0.1 /100 WBC Normal [facility] Comment on above: Performed By: #### C BCDF #### [address] [address] Platelets (Bld) [#/Vol] 272 10*3/uL Normal 150 - 450 [facility] Comment on above: Performed By: #### C BCDF #### [address] [address] RBC 4.56 x10E12/L Normal 4.00 - 5.20 [facility] Comment on above: Performed By: #### C BCDF #### [address] [address] WBC (Bld) [#/Vol] 6.0 10*3/uL Normal 4.4 - 11.3 [facility] Comment on above: Performed By: #### C BCDF #### [address] [address] HCG,SERUM QUALITATIVEon 10-26 HCG,SERUM QUALITATIVE Negative Normal Negative [facility] Comment on above: Performed By: #### H CGS #### [place] [id number] HCG,URINEon 11-21-2019 Beta HCG ( test) Ql (U) Negative Normal Negative [facility] Comment on above: Performed By: #### H CGU #### [place] [id number] HEPATIC FUNCTION PANELon Albumin [Mass/Vol] 4.7 g/dL Normal 3.4 - 5.0 [facility] Comment on above: Performed By: #### H CGU #### [place] [id number] ALP [Catalytic activity/Vol] 60 U/L Normal 33 - 110 [facility] Comment on above: Performed By: #### H CGU #### [address] [address] ALT [Catalytic activity/Vol] 12 U/L Normal 7 - 45 [facility] Comment on above: Result Comment: Dulce ents treated with Sulfasalazine may generate falsely decreased results for ALT. Performed By: #### H CGU #### [place] [id number] AST [Catalytic activity/Vol] 19 U/L Normal 9 - 39 [facility] Comment on above: Performed By: #### H CGU #### [address] [address] Bilirubin [Mass/Vol] 0.6 mg/dL Normal 0.0 - 1.2 [facility] Comment on above: Performed By: #### H CGU #### [address] [address] Bilirubin.indirect [Mass/Vol] 0.1 mg/dL Normal 0.0 - 0.3 [facility] Comment on above: Performed By: #### H CGU #### [address] [address] Protein [Mass/Vol] 7.1 g/dL Normal 6.4 - 8.2 [facility] Comment on above: Performed By: #### H CGU #### [address] [address] LIPID PANEL (CORONARY RISK 2 )on 11-21-2019 Cholesterol [Mass/Vol] 163 mg/dL Normal 0 - 199 [facility] Comment on above: Result Comment: . [...] dosing. Performed By: #### L IPID #### [address] [address] Cholesterol in HDL [Mass/Vol] 51.0 mg/dL Normal [facility] Comment on above: Result Comment: . AGE VERY LOW LOW NORMAL HIGH 0-19 Y < 35 < 40 40-45 ---- 20-24 Y ---- < 40 >45 ---- >24 Y ---- < 40 40-60 >60 . Performed By: #### L IPID #### [address] [address] Cholesterol in LDL [Mass/Vol] 85 mg/dL Normal 0 - 109 [facility] Comment on above: Result Comment: . NEAR BORD AGE DESIRABLE OPTIMAL HIGH HIGH VERY HIGH 0-19 Y 0 - 109 --- 110-129 >/= 130 ---- 20-24 Y 0 - 119 --- 120-159 >/= 160 ---- >24 Y 0 - 99 100-129 130-159 160-189 >/=190 . Performed By: #### L IPID #### [address] [address] Cholesterol in VLDL [Mass/Vol] 27 mg/dL Normal 0 - 40 [facility] Comment on above: Performed By: #### L IPID #### [address] [address] Cholesterol.total/Heidi sterol in HDL [Mass ratio] 3.2 {ratio} Normal [facility] Comment on above: Result Comment: REF VALUES DESIRABLE < 3.4 HIGH RISK > 5.0 Performed By: #### L IPID #### [address] [address] NON-HDL CHOLESTEROL 112 mg/dL Normal 0 - 119 [facility] Comment on above: Result Comment: AGE DESIRABLE BORDERLINE HIGH HIGH VERY HIGH 0-19 Y 0 - 119 120 - 144 >/= 145 >/= 160 20-24 Y 0 - 149 150 - 189 >/= 190 ---- >24 Y 30 MG/DL ABOVE LDL CHOLESTEROL GOAL . Performed By: #### L IPID #### [address] [address] Triglyceride [Mass/Vol] 136 mg/dL Normal 0 - 149 [facility] Comment on above: Result Comment: . [...] dosing. Performed By: #### L IPID #### [address] [address] HCG,URINEon 10-19-2019 Beta HCG ( test) Ql (U) Negative Normal Negative [facility] Comment on above: Performed By: #### H CGU #### [address] [address] Culture, urine Bacteria identified Cx Nom (U) G. vaginalis (Presumptive) [facility] Work Phone: Bacteria identified Cx Nom (U) Positive [facility] Work Phone: Vital Signs Date Time Vital Sign Value Performing Clinician Faci lity 11-05-2024 10:20-0400 Body mass index (BMI) [Ratio] 29.12 kg/m2 Carey Frost APRN.CNM Work Phone: [facility] 11-05-2024 10:20-0400 Body weight 79.38 kg Carey Frost APRN.CNM Work Phone: [facility] 11-05-2024 10:20-0400 Diastolic blood pressure 70 mm[Hg] Carey Frost APRN.CNM Work Phone: [facility] 11-05-2024 10:20-0400 Systolic blood pressure 112 mm[Hg] Carey Frost APRN.CNM Work Phone: [facility] 10-23-2024 10:46-0400 Body mass index (BMI) [Ratio] 28.62 kg/m2 Daija Roblero APRN.CNM Work Phone: [facility] 10-23-2024 10:46-0400 Body weight 78.02 kg Daija Roblero APRN.CNM Work Phone: [facility] 10-23-2024 10:46-0400 Diastolic blood pressure 78 mm[Hg] Daija Roblero APRN.CNM Work Phone: [facility] 10-23-2024 10:46-0400 Systolic blood pressure 116 mm[Hg] Daija Alexisjohn PRINT MANAGER.CNM Work Phone: [facility] 10-15-2024 10:06-0400 Body mass index (BMI) [Ratio] 28.79 kg/m2 Kamar Valdovinos MD Work Phone: [facility] 10-15-2024 10:06-0400 Body weight 78.47 kg Kamar Valdovinos MD Work Phone: [facility] 10-15-2024 10:06-0400 Diastolic blood pressure 72 mm[Hg] Kamar Valdovinos MD Work Phone: [facility] 10-15-2024 10:06-0400 Systolic blood pressure 110 mm[Hg] Kamar Valdovinos MD Work Phone: [facility] 10-02-2024 08:38-0400 Body mass index (BMI) [Ratio] 27.96 kg/m2 Mik Hamason PRINT MANAGER.MASON TENDER Work Phone: [facility] 10-02-2024 08:38-0400 Body weight 76.2 kg Mik Haury PRINT MANAGER.MASON TENDER Work Phone: [facility] 10-02-2024 08:38-0400 Diastolic blood pressure 60 mm[Hg] Mik Haury PRINT MANAGER.MASON TENDER Work Phone: [facility] 10-02-2024 08:38-0400 Systolic blood pressure 110 mm[Hg] Mik Haury PRINT MANAGER.MASON TENDER Work Phone: [facility] 09-18-2024 14:16-0400 Body mass index (BMI) [Ratio] 27.12 kg/m2 Katherine Brunner MD Work Phone: [facility] 09-18-2024 14:16-0400 Body weight 73.94 kg Katherine Brunner MD Work Phone: [facility] 09-18-2024 14:16-0400 Diastolic blood pressure 62 mm[Hg] Katherine Brunner MD Work Phone: [facility] 09-18-2024 14:16-0400 Systolic blood pressure 108 mm[Hg] Katherine Brunner MD Work Phone: [facility] 09-04-2024 09:52-0400 Body mass index (BMI) [Ratio] 27.12 kg/m2 Daija Roblero PRINT MANAGER.CNM Work Phone: [facility] 09-04-2024 09:52-0400 Body weight 73.94 kg Daija Roblero PRINT MANAGER.CNM Work Phone: [facility] 09-04-2024 09:52-0400 Diastolic blood pressure 64 mm[Hg] Daija Roblero PRINT MANAGER.CNM Work Phone: [facility] 09-04-2024 09:52-0400 Systolic blood pressure 108 mm[Hg] Daija Roblero PRINT MANAGER.CNM Work Phone: [facility] 08-21-2024 09:14-0400 Body mass index (BMI) [Ratio] 26.96 kg/m2 Carey Frost PRINT MANAGER.CNM Work Phone: [facility] 08-21-2024 09:14-0400 Body weight 73.48 kg Carey Frost PRINT MANAGER.CNM Work Phone: [facility] 08-21-2024 09:14-0400 Diastolic blood pressure 66 mm[Hg] Carey Frost PRINT MANAGER.CNM Work Phone: [facility] 08-21-2024 09:14-0400 Systolic blood pressure 108 mm[Hg] Carey Frost PRINT MANAGER.CNM Work Phone: [facility] 07-24-2024 09:12-0400 Body mass index (BMI) [Ratio] 25.59 kg/m2 Mik Mendoza APRN.MASON TENDER Work Phone: [facility] 07-24-2024 09:12-0400 Body weight 69.76 kg Mik Mendoza APRN.MASON TENDER Work Phone: [facility] 07-24-2024 09:12-0400 Diastolic blood pressure 64 mm[Hg] Mik Mendoza APRN.MASON TENDER Work Phone: [facility] 07-24-2024 09:12-0400 Systolic blood pressure 118 mm[Hg] Mik Mendoza APRN.MASON TENDER Work Phone: [facility] 06-24-2024 10:37-0400 Body mass index (BMI) [Ratio] 24.3 kg/m2 Katherine Brunner MD Work Phone: [facility] 06-24-2024 10:37-0400 Body weight 66.22 kg Katherine Brunner MD Work Phone: [facility] 06-24-2024 10:37-0400 Diastolic blood pressure 64 mm[Hg] Katherine Brunner MD Work Phone: [facility] 06-24-2024 10:37-0400 Systolic blood pressure 112 mm[Hg] Katherine Brunner MD Work Phone: [facility] 05-14-2024 08:10-0500 Body height 165.1 cm Darnell Blank MD Work Phone: [facility] 05-14-2024 08:10-0500 Body mass index (BMI) [Ratio] 23.23 kg/m2 Darnell Blank MD Work Phone: [facility] 05-14-2024 08:10-0500 Body weight 63.32 kg Darnell Blank MD Work Phone: [facility] 05-14-2024 08:10-0500 Diastolic blood pressure 80 mm[Hg] Darnell Blank MD Work Phone: [facility] 05-14-2024 08:10-0500 Respiratory rate 18 /min Darnell Blank MD Work Phone: [facility] 05-14-2024 08:10-0500 Systolic blood pressure 108 mm[Hg] Darnell Blank MD Work Phone: [facility] 03-28-2024 09:48-0500 Body height 166.3 cm Mik Haury PRINT MANAGER.MASON TENDER Work Phone: [facility] 03-28-2024 09:48-0500 Body mass index (BMI) [Ratio] 21.98 kg/m2 Mik Mendoza PRINT MANAGER.MASON TENDER Work Phone: [facility] 03-28-2024 09:48-0500 Body weight 60.78 kg Mik eMndoza PRINT MANAGER.MASON TENDER Work Phone: [facility] 03-28-2024 09:48-0500 Diastolic blood pressure 62 mm[Hg] Mik Mendoza PRINT MANAGER.MASON TENDER Work Phone: [facility] 03-28-2024 09:48-0500 Systolic blood pressure 104 mm[Hg] Mik Mendoza PRINT MANAGER.MASON TENDER Work Phone: [facility] 04-15-2022 07:33-0500 Body temperature 97.9 [degF] Gia Mclaughlin MD Work Phone: [facility] 04-15-2022 07:33-0500 Diastolic blood pressure 87 mm[Hg] Gia Mclaughlin MD Work Phone: [facility] 04-15-2022 07:33-0500 Heart rate 79 /min Gia Mclaughlin MD Work Phone: [facility] 04-15-2022 07:33-0500 Respiratory rate 16 /min Gia Mclaughlin MD Work Phone: [facility] 04-15-2022 07:33-0500 SaO2% (BldA) [Mass fraction] 99 % Gia Mclaughlin MD Work Phone: [facility] [employer] 04-15-2022 07:33-0500 Systolic blood pressure 134 mm[Hg] Gia Mclaughlin MD Work Phone: [facility] [employer] 04-15-2022 06:00-0500 Body mass index (BMI) [Ratio] 28.86 kg/m2 Gia Mclaughlin MD Work Phone: [facility] [employer] 04-15-2022 06:00-0500 Body weight 73.9 kg Gia Mclaughlin MD Work Phone: [facility] 04-12-2022 15:23-0500 Body height 160 cm Gia Mclaughlin MD Work Phone: [facility] 04-12-2022 13:57-0500 Body temperature 97.9 [degF] [facility] 04-12-2022 13:57-0500 Diastolic blood pressure 91 mm[Hg] [facility] 04-12-2022 13:57-0500 Heart rate 79 /min [facility] 04-12-2022 13:57-0500 Respiratory rate 16 /min [facility] 04-12-2022 13:57-0500 SaO2% (BldA) [Mass fraction] 98 % [facility] 04-12-2022 13:57-0500 Systolic blood pressure 130 mm[Hg] [facility] 04-12-2022 09:51-0500 Body height 160.02 cm [facility] 04-12-2022 09:51-0500 Body mass index (BMI) [Ratio] 29.4 kg/m2 [facility] 04-12-2022 09:51-0500 Body weight 75.29 kg [facility] 10-19-2021 21:59-0400 Body height 160.02 cm [facility] Work Phone: 10-19-2021 21:59-0400 Body mass index (BMI) [Ratio] 22.1 kg/m2 [facility] Work Phone: 10-19-2021 21:59-0400 Body temperature 98.5 [degF] [facility] Work Phone: 10-19-2021 21:59-0400 Body weight 56.69 kg [facility] Work Phone: 10-19-2021 21:59-0400 Diastolic blood pressure 82 mm[Hg] [facility] Work Phone: 10-19-2021 21:59-0400 Heart rate 85 /min [facility] Work Phone: 10-19-2021 21:59-0400 Respiratory rate 16 /min [facility] Work Phone: 10-19-2021 21:59-0400 SaO2% (BldA) [Mass fraction] 100 % [facility] Work Phone: 10-19-2021 21:59-0400 Systolic blood pressure 125 mm[Hg] [facility] Work Phone: 05-27-2021 09:00-0500 Body height 160.02 cm Yoli Moreland Work Phone: [facility] [employer] [facility] Work Phone: 05-27-2021 09:00-0500 Body mass index (BMI) [Ratio] 20.55 kg/m2 Yoli Moreland Work Phone: [employer] [facility] Work Phone: 05-27-2021 09:00-0500 Body surface area Derived from formula 1.53 m2 Yoli Moreland Work Phone: [employer] [facility] Work Phone: 05-27-2021 09:00-0500 Body weight 52.62 kg Yoli Moreland Work Phone: [facility] [employer] [facility] Work Phone: 05-27-2021 09:00-0500 Diastolic blood pressure 68 mm[Hg] Yoli Moreland Work Phone: [facility] [employer] [facility] Work Phone: 05-27-2021 09:00-0500 Heart rate 61 /min Yoli Moreland Work Phone: [employer] [facility] Work Phone: 05-27-2021 09:00-0500 SaO2% (BldA) [Mass fraction] 95 % Yoli Moreland Work Phone: [facility] Work Phone: 05-27-2021 09:00-0500 Systolic blood pressure 110 mm[Hg] Yoli Moreland Work Phone: [facility] Work Phone: 04-28-2021 08:04-0500 Body height 160.02 cm Yoli Moreland Work Phone: [facility] Work Phone: 04-28-2021 08:04-0500 Body mass index (BMI) [Ratio] 20.9 kg/m2 Yoli Moreland Work Phone: [facility] Work Phone: 04-28-2021 08:04-0500 Body surface area Derived from formula 1.55 m2 Yoli Moreland Work Phone: [facility] Work Phone: 04-28-2021 08:04-0500 Body temperature 97.8 [degF] Yoli Moreland Work Phone: [facility] Work Phone: 04-28-2021 08:04-0500 Body weight 53.52 kg Yoli Moreland Work Phone: [facility] Work Phone: 04-28-2021 08:04-0500 Diastolic blood pressure 76 mm[Hg] Yoli Moreland Work Phone: [facility] Work Phone: 04-28-2021 08:04-0500 Systolic blood pressure 110 mm[Hg] Yoli Moreland Work Phone: [facility] Work Phone: 03-12-2021 08:19-0500 Body height 160.02 cm Yoli Moreland Work Phone: [facility] Work Phone: 03-12-2021 08:19-0500 Body mass index (BMI) [Ratio] 21.83 kg/m2 Yoli Moreland Work Phone: [facility] Work Phone: 03-12-2021 08:19-0500 Body surface area Derived from formula 1.57 m2 Yoli Moreland Work Phone: [facility] Work Phone: 03-12-2021 08:19-0500 Body temperature 97.7 [degF] Yoli Moreland Work Phone: [facility] Work Phone: 03-12-2021 08:19-0500 Body weight 55.91 kg Yoli Moreland Work Phone: [facility] Work Phone: 03-12-2021 08:19-0500 Diastolic blood pressure 70 mm[Hg] Yoli Moreland Work Phone: [facility] Work Phone: 03-12-2021 08:19-0500 Heart rate 78 /min Yoli Moreland Work Phone: [facility] Work Phone: 03-12-2021 08:19-0500 SaO2% (BldA) [Mass fraction] 98 % Yoli Moreland Work Phone: [facility] Work Phone: 03-12-2021 08:19-0500 Systolic blood pressure 118 mm[Hg] Yoli Moreland Work Phone: [facility] Work Phone: 02-25-2021 08:51-0500 Body height 160.02 cm Yoli Moreland Work Phone: [facility] Work Phone: 02-25-2021 08:51-0500 Body mass index (BMI) [Ratio] 21.83 kg/m2 Yoli Moreland Work Phone: [facility] Work Phone: 02-25-2021 08:51-0500 Body surface area Derived from formula 1.57 m2 Yoli Moreland Work Phone: [facility] Work Phone: 02-25-2021 08:51-0500 Body temperature 98.2 [degF] Yoli Moreland Work Phone: [facility] Work Phone: 02-25-2021 08:51-0500 Body weight 55.91 kg Yoli Moreland Work Phone: [facility] Work Phone: 02-25-2021 08:51-0500 Diastolic blood pressure 72 mm[Hg] Yoli Moreland Work Phone: [facility] Work Phone: 02-25-2021 08:51-0500 Heart rate 102 /min Yoli Moreland Work Phone: [facility] Work Phone: 02-25-2021 08:51-0500 SaO2% (BldA) [Mass fraction] 98 % Yoli Moreland Work Phone: [facility] Work Phone: 02-25-2021 08:51-0500 Systolic blood pressure 122 mm[Hg] Yoli Moreland Work Phone: [facility] Work Phone: Encounters Encounter Date Encounter Type Care Provider Facility Start: 11-05-2024 End: 11-05-2024 Patient encounter procedure Carey Santosh [facility] Work Phone: OB/Gynecology Comment on above: Supervision of high risk in third trimester (HCC) (Primary Dx); 39 weeks gestation of (HCC); History of section; Desires (vaginal after ) trial (HCC); History of delivery, currently (HCC); Anemia complicating , third trimester (HCC); History of pre-eclampsia Start: 10-30-2024 End: 10-30-2024 ambulatory HODAN LUONG Facility:[facility] Start: 10-28-2024 End: 10-28-[address] [facility] Start: 10-28-2024 End: 10-28-[address] [facility] Comment on above: Population Health Na vigation Outreach (Ob/peds) Start: 10-23-2024 End: 10-23-2024 Patient encounter procedure Daija Reubenjohn [facility] Work Phone: OB/Gynecology Comment on above: 37 weeks gestation o f (HCC) (Primary Dx); Supervision of high risk in third trimester (HCC); History of section Start: 10-23-2024 End: 10-23-2024 ambulatory HODAN LUONG Facility:[facility] Start: 10-15-2024 End: 10-15-2024 ambulatory HODAN LUONG Facility:[facility] Start: 10-15-2024 End: 10-15-2024 Patient encounter procedure [employer] [facility] [facility] Comment on above: Supervision of high risk in third trimester ([facility]); 28 weeks gestation of (HCC); History [...] trimester (HCC) Start: 10-02-2024 End: 10-02-2024 ambulatory [facility] Facility:[facility] Start: 09-18-2024 End: 09-18-2024 Patient encounter [...] of pre-eclampsia Start: 09-18-2024 End: 09-18-2024 ambulatory [facility] Facility:[facility] Start: 09-04-2024 End: 09-04-2024 Patient encounter procedure Daija Roblero APRN.CNM Work Phone: OB/Gynecology Comment on above: Supervision of high risk in third trimester (HCC) (Primary Dx); History of delivery, currently (HCC); History of pre-eclampsia; History of section; Desires (vaginal after ) trial (HCC); 30 weeks gestation of (HCC); Anemia complicating , third trimester (HCC) Start: 09-04-2024 End: 09-04-2024 ambulatory HODAN LUONG Facility:[facility] Start: 08-21-2024 End: 10-21-2024 Follow-up encounter [...] Start: 08-21-2024 End: 08-21-2024 ambulatory HODAN LUONG Facility:[facility] Start: 07-24-2024 End: 07-24-2024 ambulatory HODAN LUONG Facility:[facility] Start: 07-24-2024 End: 07-24-2024 Patient encounter [...] Start: 06-24-2024 End: 06-24-2024 ambulatory HODAN LUONG Facility:[facility] Start: 06-24-2024 End: 06-24-2024 Patient encounter procedure [employer] [facility] Comment on above: Encounter for anatomic survey (Primary Dx); 20 weeks gestation of Start: 05-20-2024 End: 05-20-2024 Telephone encounter Mik Mendoza APRN.MASON TENDER Work Phone: OB/Gynecology Comment on above: Question (OB Questio n) Start: 05-14-2024 End: 07-14-2024 Follow-up encounter Collette Cisneros MD Work Phone: OB/Gynecology Start: 05-14-2024 End: 05-14-2024 ambulatory MIK MENDOZA Facility:[facility] Start: 05-14-2024 End: 05-14-2024 ambulatory HODAN LUONG Facility:[facility] Start: 05-14-2024 End: 05-14-2024 Patient encounter [...] Start: 03-28-2024 End: 03-28-2024 ambulatory HODAN LUONG Facility:[facility] Start: 03-28-2024 End: 03-28-2024 Patient encounter procedure Mik Mendoza APRN.MASON TENDER Work Phone: OB/Gynecology Comment on above: Encounter [...] Start: 01-10-2024 End: 01-10-2024 ambulatory Bibiana WALDRON Facility:[facility] Start: 12-19-2023 End: 12-26-2023 Telephone encounter Darnell Blank MD Work Phone: OB/Gynecology Comment on above: Appointment Start: 08-24-2022 End: 08-24-2022 ambulatory [facility] Work Phone: Start: 08-24-2022 End: 08-24-2022 Patient encounter procedure [facility], [place] manager financial services Off Start: 05-24-2022 End: 05-24-2022 ambulatory [facility] Work Phone: Start: 05-24-2022 End: 05-24-2022 Patient encounter procedure [facility], [place] manager financial services Off Start: 04-12-2022 End: 04-12-2022 ambulatory GIA MCLAUGHLIN [facility] Start: 04-12-2022 End: 04-15-2022 Evaluation and management of inpatient GIA Brennan [facility] Start: 04-12-2022 End: 04-15-2022 Evaluation and management of inpatient Gia Mclaughlin MD Work Phone: [facility] Comment on above: S/P (Prima ry Dx); Preeclampsia, severe, third trimester Start: 04-12-2022 End: 04-12-2022 ambulatory [facility] Work Phone: Start: 04-12-2022 End: 04-12-2022 Patient encounter procedure [facility], Outpatients Start: 03-29-2022 End: 03-29-2022 ambulatory [facility] Work Phone: Start: 03-29-2022 End: 03-29-2022 Patient encounter procedure [facility], [place] manager financial services Off Start: 01-05-2022 End: 01-05-2022 Patient encounter procedure [facility], Specimen Start: 11-04-2021 End: 11-04-2021 Patient encounter procedure [facility], OP Pavilion Start: 10-21-2021 End: 10-21-2021 Patient encounter procedure [facility], [place] manager financial services Off Start: 10-19-2021 End: 10-20-2021 Emergency department patient visit [facility] Start: 05-27-2021 Office outpatient vi sit 15 minutes Yoli Moreland Work Phone: [facility] Work Phone: Start: 04-28-2021 Office outpatient vi sit 15 minutes Yoli Moreland Work Phone: [facility] Work Phone: Start: 04-28-2021 Patient encounter procedure Yoli Moreland Work Phone: [facility] Work Phone: Start: 03-12-2021 Office outpatient vi sit 15 minutes Yoli Moreland Work Phone: [facility] Work Phone: Start: 03-05-2021 Chart Update Yoli sánchez Work Phone: [facility] DO Work Phone: Start: 02-25-2021 Office outpatient ne w 30 minutes Yoli Moreland Work Phone: [facility] Work Phone: Procedures Date Procedure [...] after 1st trimest 03/27 gestation Mik Mendoza JANICE.[employer] T[employer] Work Phone: Start: 05-14-2024 Antibody screen HODAN LUONG Comment on above: Order Comment: Speci men Type: BLOOD SPECIMENOrdering Facility: [facility] Address: [address] [place] [address] Performed By: #### T SPN ####CC MAIN BLOOD BANKCLIA [id number] [address] [place] [facility] Start: 05-14-2024 Us nuchal translucency 1st gestation Mik Mendoza JANICE.[employer] T[employer] Work Phone: Start: 03-28-2024 H/O: section History of section Mik Brownmason CAMACHO.[employer] Work Phone: Start: 03-28-2024 Us uterus l imited fetuses Mik Mendoza JANICE.[employer] T[employer] Work Phone: Start: 04-14-2022 Comprehensive metabo lic [...] Zuleyma Huston DO Work Phone: Start: 11-04-2021 [facility] RH FACT OR, EXTERNAL RESULT Zuleyma Huston DO Work Phone: Start: 10-19-2021 Transvaginal obstetr ic ultrasonography section Anhtuan T H uynh DO Work Phone: H/O: section S/P Gia Mclaughlin MD Work Phone: H/O: section History of section Darnell Blank MD Work Phone: H/O: section History of section Katherine Brunner MD Work Phone: H/O: section History of section Mik Mendoza APRN.MASON TENDER Work Phone: H/O: section History of section Carey Frost PRINT MANAGER.CNM Work Phone: H/O: section History of section Daija Roblero PRINT MANAGER.CNM Work Phone: H/O: section History of section Katherine Brunner MD Work Phone: H/O: section History of section Mik Mendoza APRN.MASON TENDER Work Phone: H/O: section History of section [...] RSV Vaccine (1 - 1-dose 75+ series) [facility] Start: 2050 Zoster Vaccines (1 o f 2) Zoster Vaccines (1 of 2) [facility] Start: 03-28-2025 GC (Gonorrhea) Screening (18-24) GC (Gonorrhea) Screening (18-24) [facility] Start: 03-28-2025 Screening for Chlamy leandro trachomatis Chlamydia Screening () [facility] Start: 03-28-2025 Screening for malign ant neoplasm of cervix Cervical Cancer Screening [facility] Start: 11-25-2024 Influenza vaccination [facility] Start: 11-11-2024 End: 11-11-2024 Patient encounter procedure 11/11/2024 10:50 AM EDT Routine Office Visit OB/Gynecology [address] [place] [address] Collette Cisneros MD [address] [place] [address] OB OB/Gynecology Comment on above: OB Start: 11-05-2024 End: 11-05-2024 Patient encounter procedure 11/05/2024 10:30 AM EDT Routine Office Visit OB/Gynecology [address] [place] [address] Carey Frost APRN.CNM [address] [place] [address] OB OB/Gynecology Comment on above: OB Start: 10-30-2024 End: 10-30-2024 Patient encounter procedure 10/30/2024 10:20 AM EDT Routine Office Visit OB/Gynecology [address] [place] [address] Katherine Brunner MD [address] [place] [address] (Fax) OB OB/Gynecology Comment on above: OB Start: 10-23-2024 End: 10-23-2024 Patient encounter procedure 10/23/2024 10:45 AM EDT Routine Office Visit OB/Gynecology [address] [place] [address] Daija Roblero APRN.CN [address] [place] [address] (Fax) OB OB/Gynecology Comment on above: OB Start: 10-22-2024 End: 10-22-2024 Patient encounter procedure 10/22/2024 10:30 AM EDT Routine Office Visit OB/Gynecology [address] [place] [address] Katherine Brunner MD [address] [place] [address] (Fax) OB OB/Gynecology Comment on above: OB Start: 10-15-2024 End: 10-15-2024 Patient encounter procedure [facility] Comment on above: Growth Growth/OB Start: 10-02-2024 End: 10-02-2024 Patient encounter procedure 10/02/2024 8:30 AM EDT Routine Office Visit OB/Gynecology [address] [place] [address] Collette Cisneros MD [address] [place] [address] (Fax) OB OB/Gynecology Comment on above: OB Start: 09-18-2024 End: 09-18-2024 Patient encounter procedure [facility] Comment on above: Growth OB Start: 09-04-2024 End: 12-04-2024 CBC panel - Blood by Automated count COMPLETE BLOOD COUNT Lab Routine Anemia complicating , third trimester (HCC) Expected: 09/04/2024, Expires: 12/04/2024 [facility] Work Phone: Comment on above: Expected: 09/04/2024 , Expires: 12/04/2024 Start: 09-04-2024 End: 09-04-2024 Patient encounter procedure 09/04/2024 9:45 AM EDT Routine Office Visit OB/Gynecology [address] [place] [address] Daija Roblero APRN.CNM [address] [place] [address] OB OB/Gynecology Comment on above: OB Start: 08-21-2024 End: 08-21-2024 Patient encounter procedure 08/21/2024 9:15 AM EDT Routine Office Visit OB/Gynecology [address] [place] [address] Carey Frost APRN.CNM [address] [place] [address] OB Routine OB/Gynecology Comment on above: OB Routine Start: 08-21-2024 End: 08-21-2024 ambulatory 08/21/2024 9:00 AM EDT Results Only [place] [facility] [address] [place] [address] Glucose Test and Labs [facility] Comment on above: Glucose Test and Lab s Start: 07-24-2024 End: 10-23-2024 CBC panel - Blood by Automated count COMPLETE BLOOD COUNT Lab Routine Supervision of high risk in second trimester (HCC) 24 weeks gestation of (HCC) Expected: 07/24/2024, Expires: 10/23/2024 [facility] Comment on above: Expected: 07/24/2024 , Expires: 10/23/2024 Start: 07-24-2024 End: 10-23-2024 GESTATIONAL GLUCOSE SCREEN, 1-HOUR, 50 GRAM, NON-FASTING GESTATIONAL GLUCOSE SCREEN, 1-HOUR, 50 GRAM, NON-FASTING Lab Routine Supervision of high risk in second trimester (HCC) 24 weeks gestation of (HCC) Expected: 07/24/2024, Expires: 10/23/2024 [facility] Work Phone: Comment on above: Expected: 07/24/2024 , Expires: 10/23/2024 Start: 07-24-2024 End: 10-23-2024 SYPHILIS TREPONEMAL W/REFLEX SYPHILIS TREPONEMAL W/REFLEX Lab Routine Supervision of high risk in second trimester (HCC) 24 weeks gestation of (HCC) Expected: 07/24/2024, Expires: 10/23/2024 [facility] Comment on above: Expected: 07/24/2024 , Expires: 10/23/2024 Start: 07-24-2024 End: 07-24-2024 Patient encounter procedure 07/24/2024 8:00 AM EDT Routine Office Visit OB/Gynecology [address] [place] [address] Daija Roblero APRN.CN [address] [place] [address] OB OB/Gynecology Comment on above: OB Start: 06-24-2024 End: 06-24-2024 Patient encounter procedure [facility] Comment on above: Anatomy Anatomy/OB Start: 05-14-2024 End: 08-13-2024 Chromosome 21 trisomy [Presence] in Blood or Tissue by Cytogenetics [facility] Work Phone: Comment on above: Expected: 05/14/2024 , Expires: 08/13/2024 Start: 05-14-2024 End: 05-14-2024 Patient encounter procedure [facility] Comment on above: Nuchal Nuchal/Consult to ZECHARIAH Stallings OB Start: 04-25-2024 End: 04-25-2024 Patient encounter procedure 04/25/2024 10:20 AM EST Routine Office Visit OB/Gynecology [address] [place] [address] Deb Simmons MD [address] [place] [address] -last menstural period 02/04/24 OB/Gynecology Comment on above: -last menst ural period 02/04/24 Start: 03-28-2024 End: 06-27-2024 ANEMIA REFLEX PANEL ANEMIA REFLEX PANEL Lab Routine 7 weeks gestation of Expected: 03/28/2024, Expires: 06/27/2024 [facility] Work Phone: Comment on above: Expected: 03/28/2024 , Expires: 06/27/2024 Start: 03-28-2024 End: 06-27-2024 Comprehensive metabolic 2000 panel - Serum or Plasma COMPREHENSIVE METABOLIC PANEL Lab Routine History of pre-eclampsia Expected: 03/28/2024, Expires: 06/27/2024 [facility] Comment on above: Expected: 03/28/2024 , Expires: 06/27/2024 Start: 03-28-2024 End: 06-27-2024 Hemoglobin A1c in Blood HEMOGLOBIN A1C Lab Routine 7 weeks gestation of Expected: 03/28/2024, Expires: 06/27/2024 [facility] Comment on above: Expected: 03/28/2024 , Expires: 06/27/2024 Start: 03-28-2024 End: 06-27-2024 Hepatitis B virus surface Ag [Presence] in Serum HEPATITIS B SURFACE ANTIGEN Lab Routine 7 weeks gestation of Expected: 03/28/2024, Expires: 06/27/2024 [facility] Comment on above: Expected: 03/28/2024 , Expires: 06/27/2024 Start: 03-28-2024 End: 06-27-2024 Hepatitis C virus Ab [Presence] in Serum HEPATITIS C ANTIBODY IA WITH CONFIRMATION Lab Routine 7 weeks gestation of Expected: 03/28/2024, Expires: 06/27/2024 [facility] Comment on above: Expected: 03/28/2024 , Expires: 06/27/2024 Start: 03-28-2024 End: 06-27-2024 HIV 1+2 Ab [Presence] in Serum or Plasma by Immunoassay HIV 1/2 COMBO WITH REFLEX TO DIFFERENTIATION Lab Routine 7 weeks gestation of Expected: 03/28/2024, Expires: 06/27/2024 [facility] Comment on above: Expected: 03/28/2024 , Expires: 06/27/2024 Start: 03-28-2024 End: 03-28-2025 NUCHAL TRANSLUCENCY WHI NUCHAL TRANSLUCENCY WHI Anc Imaging Routine 7 weeks gestation of Expected: 03/28/2024, Expires: 03/28/2025 [facility] Comment on above: Expected: 03/28/2024 , Expires: 03/28/2025 Start: 03-28-2024 End: 03-28-2025 OBSTETRIC ULTRASOUND WHI OBSTETRIC ULTRASOUND WHI Anc Imaging Routine 7 weeks gestation of Expected: 03/28/2024, Expires: 03/28/2025 [facility] Comment on above: Expected: 03/28/2024 , Expires: 03/28/2025 Start: 03-28-2024 End: 06-27-2024 Protein/Creatinine [Mass Ratio] in Urine PROTEIN / CREATININE RATIO Lab Routine History of pre-eclampsia Expected: 03/28/2024, Expires: 06/27/2024 [facility] Comment on above: Expected: 03/28/2024 , Expires: 06/27/2024 Start: 03-28-2024 End: 06-27-2024 RUBELLA IGG ANTIBODY RUBELLA IGG ANTIBODY Lab Routine 7 weeks gestation of Expected: 03/28/2024, Expires: 06/27/2024 [facility] Comment on above: Expected: 03/28/2024 , Expires: 06/27/2024 Start: 03-28-2024 End: 06-27-2024 SYPHILIS TREPONEMAL W/REFLEX SYPHILIS TREPONEMAL W/REFLEX Lab Routine 7 weeks gestation of Expected: 03/28/2024, Expires: 06/27/2024 [facility] Comment on above: Expected: 03/28/2024 , Expires: 06/27/2024 Start: 03-28-2024 End: 06-27-2024 Thyrotropin [Units/volume] in Serum or Plasma THYROID STIMULATING HORMONE Lab Routine History of pre-eclampsia Expected: 03/28/2024, Expires: 06/27/2024 [facility] Comment on above: Expected: 03/28/2024 , Expires: 06/27/2024 Start: 03-28-2024 End: 06-27-2024 TYPE + SCREEN TYPE + SCREEN Blood Bank Routine 7 weeks gestation of Expected: 03/28/2024, Expires: 06/27/2024 [facility] Comment on above: Expected: 03/28/2024 , Expires: 06/27/2024 Start: 03-28-2024 End: 03-28-2024 Patient encounter procedure 03/28/2024 9:30 AM EST Initial Office Visit OB/Gynecology [address] [place], [place] [id number] Mik Mendoza APRN.MASON TENDER [address] [place] [address] -last menstural period 02/04/24 OB/Gynecology Comment on above: -last menst ural period 02/04/24 Start: 02-26-2024 End: 02-26-2024 Patient encounter procedure 02/26/2024 9:40 AM EST Office Visit OB/Gynecology [address] [place] [address] Deb Simmons MD [address] [place] [address] Preconceptual counseling- history of preeclampsia. Will get C Section op report sent from [facility] OB/Gynecology Comment on above: Preconceptual counse ling- history of preeclampsia. Will get C Section op report sent from [facility] Start: 11-26-2023 Covid-19 Vaccine () Covid-19 Vaccine () [facility] Start: 11-26-2023 Influenza vaccination Influenza Vacc ine (#1) [facility] Start: 01-05-2023 Screening for Chlamy leandro trachomatis Chlamydia and Gonorrhea Screening [facility] Start: 04-12-2022 Therapeutic injectio n iv push each new drug TX/PRO/DX INJ NEW DRUG [facility] Start: 04-12-2022 Fluid restriction [facility] Start: 04-12-2022 [facility] Start: 04-12-2022 End: 04-12-2022 Fluid restriction [facility] Start: 04-12-2022 End: 04-12-2022 [facility] Start: 04-12-2022 Nonstress test [facility] Start: 04-12-2022 Obstetric monitoring [facility] Start: 04-12-2022 Vital signs measurements [facility] Start: 11-25-2021 Influenza vaccination Influenza Vacc ine (#1) [facility] Start: 10-20-2021 [facility] Work Phone: Start: 07-01-2021 EPV, Provider: Yoli Moreland, Status: Pen, Time: 9:00 AM EPV, Provider: Yoli Moreland, Status: Pen, [facility]: 9:00 AM [facility] Start: 05-27-2021 EPV, Provider: Yoli Moreland, Status: Pen, Time: 9:00 AM EPV, Provider: Yoli Moreland, Status: Pen, Time: 9:00 AM [facility] Work [facility]: Start: 2021 Screening for malign ant neoplasm of cervix [facility] Start: 04-01-2021 FUV, Provider: Yoli Moreland, Status: Pen, Time: 10:40 AM FUV, Provider: Yoli Moreland, Status: Pen, Time: 10:40 AM [facility] Work Phone: Start: 03-11-2021 EPV, Provider: Yoli Moreland, Status: Pen, Time: 8:40 AM [facility] Work Phone: Start: 2019 DTaP/Tdap/Td Vaccine s (1 - Tdap) DTaP/Tdap/Td Vaccines (1 - Tdap) [facility] Start: 2019 Hepatitis B Vaccine (1 of 3 - 19+ 3-dose series) Hepatitis B Vaccine (1 of 3 - 19+ 3-dose series) [facility] Start: 2019 Urine microalbumin profile DTaP,Tdap,Td Vaccine (1 - Tdap) [facility] Start: 2018 Anxiety Screening Anxiety Screening [facility] Start: 2018 Depression Screening Depression Scre ening [facility] Start: 2018 GC (Gonorrhea) Screening () GC (Gonorrhea) Screening (18-24) [facility] Start: 2018 Hepatitis C screening Hepatitis C Sc reening [facility] Start: 2018 HIV screening HIV Screening [facility] Start: 2018 Screening for Chlamy leandro trachomatis Chlamydia Screening () [facility] Start: 2016 Meningococcal B Vacc ine (1 of 2 - Standard) Meningococcal B Vaccine (1 of 2 - Standard) [facility] Start: 2016 Meningococcal B Vaccine: Consider Based On Risk (1 of 2 - Patient Seeks Protection) Meningococcal B Vaccine: Consider Based On Risk (1 of 2 - Patient Seeks Protection) [facility] Start: 2015 HPV Vaccine (1 - 3-d ose series) HPV Vaccine (1 - 3-dose series) [facility] Start: 2014 Peds To Adult Transition Annual Assessment Peds To Adult Transition Annual Assessment [facility] Start: 2012 Peds To Adult Transition Initial Discussion Peds To Adult Transition Initial Discussion [facility] Start: 2011 HPV Vaccines (1 - 2-dose series) HPV Vaccines (1 - 2-dose series) [facility] Start: 2001 MMR Vaccines (1 of 1 - Standard series) MMR Vaccines (1 of 1 - Standard series) [facility] Start: 2001 Varicella vaccination Varicell a Vaccines (1 of 2 - 2-dose childhood series) [facility] Start: 2000 COVID-19 Vaccine (#1) COVID-19 Vacci ne (#1) [facility] Start: 2000 Hepatitis B Vaccines (1 of 3 - 3-dose series) Hepatitis B Vaccines (1 of 3 - 3-dose series) [facility] Start: 2000 Lipid panel Lipid Panel [facility] Bacteria identified in Urine by Culture URINE CULTURE Microbiology Routine 7 weeks gestation of 03/28/2024 10:27 AM [facility] Chlamydia trachomatis+Neisseria gonorrhoeae DNA [Presence] in Unspecified specimen by ÁNGEL with probe detection GONORRHEA/CHLAMYDIA NAAT Lab Routine 7 weeks gestation of 03/28/2024 10:27 AM [facility] End: 08-05-2025 OBSTETRIC ULTRASOUND WHI OBSTETRIC ULTRASOUND WHI Anc Imaging Routine Supervision of high risk in third trimester ([facility]) 28 weeks gestation of ([facility]) History of delivery, currently ([facility]) History of pre-eclampsia Once per month for 3 Occurrences starting 08/21/2024 until 08/05/2025 [facility] Work Phone: Comment on above: Once per month for 3 Occurrences starting 08/21/2024 until 08/05/2025 PAP TEST PAP TEST Lab Abhijit de paze 7 weeks gestation of 03/28/2024 10:27 AM [facility] Patient Education ED Possible Mi scarriage ... [facility] Work Phone: Patient referral [facility] Work Phone: ROUTINE, GR OUP B STREPTOCOCCUS BY PCR ROUTINE, GROUP B STREPTOCOCCUS BY PCR Microbiology Routine Supervision of high risk in third trimester ([facility]) 10/15/2024 10:25 AM EDT [facility] Work Phone: End: 04-12-2022 Tissue exam Tissue exam Pathology and Cytology Routine Once (Lab) for 1 Occurrences starting 04/12/2022 until 04/12/2022 [facility] Work Phone: Comment on above: Once (Lab) for 1 Occ urrences starting 04/12/2022 until 04/12/2022 URINE OB DIP B/O URINE OB DIP B/ O Lab Routine Supervision of high risk in third trimester ([facility]) Desires (vaginal after ) trial ([facility]) History of section History of delivery, currently ([facility]) History of pre-eclampsia Anemia complicating , third trimester ([facility]) Ordered: 10/02/2024 [facility] Work Phone: Comment on above: Ordered: 10/02/2024 URINE OB DIP B/O URINE OB DIP B/ O Lab Routine 37 weeks gestation of ([facility]) Supervision of high risk in third trimester ([facility]) History of section Ordered: 10/23/2024 [facility] Work Phone: Comment on above: Ordered: 10/23/2024 URINE OB DIP B/O URINE OB DIP B/ O Lab Routine Supervision of high risk in third trimester ([facility]) History of section Desires (vaginal after ) trial ([facility]) History of delivery, currently ([facility]) Anemia complicating , third trimester ([facility]) History of pre-eclampsia 39 weeks gestation of ([facility]) Ordered: 11/05/2024 [facility] Work Phone: Comment on above: Ordered: 11/05/2024 End: 04-12-2022 US biophysical profile wo non stress testing [facility] Comment on above: Once for 1 Occurrenc es starting 04/12/2022 until 04/12/2022 End: 04-12-2022 US for [facility] Comment on above: Once for 1 Occurrenc es starting 04/12/2022 until 04/12/2022 End: 04-12-2022 US.doppler Umbilical artery [facility] Work Phone: Comment on above: Once for 1 Occurrenc es starting 04/12/2022 until 04/12/2022 Immunizations Immunization Date Immunization Notes Care Provider Lv montero 11-15-2017 Human Papillomavirus 9-valent vaccine Yoli Moreland Work Phone: [facility] Work Phone: 11-15-2017 meningococcal B vacc ine, fully recombinant Yoli Moreland Work Phone: [facility] Work Phone: 11-15-2017 meningococcal polysaccharide (groups A, C, Y and W-135) diphtheria toxoid conjugate vaccine (MCV4P) Yoli Moreland Work Phone: [facility] Work Phone: 10-03-2016 meningococcal B vacc ine, fully recombinant [facility] Work Phone: [facility] Work Phone: 03-02-2016 Human Papillomavirus 9-valent vaccine [facility] Work Phone: [facility] Work Phone: 07-09-2015 Human Papillomavirus 9-valent vaccine [facility] Work Phone: [facility] Work Phone: 01-16-2013 influenza virus vacc ine, live, attenuated, for intranasal use [facility] Work Phone: [facility] Work Phone: 09-14-2005 diphtheria, tetanus toxoids and acellular pertussis vaccine, unspecified formulation [facility] Work Phone: [facility] Work Phone: 09-14-2005 measles, mumps and rubella virus vaccine [facility] Work Phone: [facility] Work Phone: 09-14-2005 poliovirus vaccine, inactivated [facility] Work Phone: [facility] Work Phone: 07-11-2002 diphtheria, tetanus toxoids and acellular pertussis vaccine, unspecified formulation [facility] Work Phone: [facility] Work Phone: 07-11-2002 haemophilus influenz ae type b vaccine, conjugate unspecified formulation [facility] Work Phone: [facility] Work Phone: 07-11-2002 poliovirus vaccine, inactivated Yoli Moreland Work Phone: [facility] Work Phone: 07-11-2002 varicella virus vaccine [facility] Work Phone: [facility] Work Phone: 09-24-2001 measles, mumps and rubella virus vaccine [facility] Work Phone: [facility] Work Phone: 05-21-2001 haemophilus influenz ae type b conjugate and Hepatitis B vaccine [facility] Work Phone: [facility] Work Phone: 2000 diphtheria, tetanus toxoids and acellular pertussis vaccine, unspecified formulation [facility] Work Phone: [facility] Work Phone: 2000 diphtheria, tetanus toxoids and acellular pertussis vaccine, unspecified formulation [facility] Work Phone: [facility] Work Phone: 2000 haemophilus influenz ae type b conjugate and Hepatitis B vaccine [facility] Work Phone: [facility] Work Phone: 2000 poliovirus vaccine, inactivated [facility] Work Phone: [facility] Work Phone: 2000 pneumococcal conjuga te vaccine, 7 valent [facility] Work Phone: [facility] Work Phone: 2000 diphtheria, tetanus toxoids and acellular pertussis vaccine, unspecified formulation [facility] Work Phone: [facility] Work Phone: 2000 haemophilus influenz ae type b conjugate and Hepatitis B vaccine [facility] Work Phone: [facility] Work Phone: 2000 pneumococcal conjuga te vaccine, 7 valent Yoli Navarro [facility] Work Phone: [facility] Work Phone: 2000 poliovirus vaccine, inactivated [facility] Work Phone: [facility] Work Phone: NEGATED: Highlighted row has not occurred!04-15-2022 measles, mumps and rubella virus vaccine Gia Mclaughlin MD Work Phone: [facility] Comment on above: Deferred: Contraindi cation NEGATED: Highlighted row has not occurred!04-15-2022 tetanus toxoid, reduced diphtheria toxoid, and acellular pertussis vaccine, adsorbed Gia Mclaughlin MD Work Phone: [employer] Comment on above: Deferred: No longer needed Payers Date Payer Category Payer Private Health Insurance MMO SUP ERMED PPO [id number] 2024 Blue Cross Blue Shield [id number] 2024 Unknown [id number] 2024 Self-pay [id number] 2024 Unknown [id number] 2023 Unknown 2022 Unknown [id number] 2022 Medicaid [id number] 2022 Medicaid [id number] Unknown [id number] Unknown [id number] Social History Date Type Detail Facility Start: 02-14-2024 End: 05-14-2024 Caffeine use Caffeine use -[facility] [employer] Phone: Start: 10-19-2021 End: 10-19-2021 Tobacco smoking status NEIS Unknown if ever smoked [facility] Start: 2000 Sex Assigned At Female W [facility] Start: 05-04-2015 End: 04-12-2022 Tobacco smoking status NHIS Never smoked tobacco [facility] Start: 05-04-2015 End: 04-12-2022 Tobacco use and exposure Smokeless tobacco non-user [facility] Start: 2000 Sex assigned at Not on file [facility] Start: 02-14-2024 End: 05-14-2024 Gender identity Not on file [facility] Start: 05-04-2015 National Score (1-100), lower number is lower risk 61 [facility] Start: 04-12-2022 End: 10-30-2024 Alcohol intake Ex-drinker (finding) [facility] Start: 04-12-2022 History SDOH Alcohol Frequency 1 [facility] Start: 04-12-2022 History SDOH Alcohol Std Drinks 0 [facility] Start: 04-12-2022 History SDOH Social Connections Phone 98 [facility] Start: 04-12-2022 History SDOH Social Connections Living 3 [facility] Start: 04-12-2022 History SDOH IPV Fear 2 [facility] Start: 04-12-2022 End: 03-25-2024 Education 13 [facility] Start: 04-02-2022 End: 04-12-2022 Exposure to SARS-CoV-2 (event) Not sure [facility] Start: 02-18-2024 [facility] Start: 03-25-2024 Gender identity Identifies as female gender (finding) [facility] Start: 03-25-2024 Sexual orientation Heterosexual (reba beauchamp) [facility] NEGATED: Highlighted rowStart: KATIE History of tobacco use Passive smoker [facility] Clinical Notes 10-21-2021 to 11-05-2024 Quick Notes - Carey Frost APRN.[facility] - 11/05/2024 10:50 AM EDTPrenatal Quick Notes - Carey Frost APRN.[facility] - 11/05/2024 10:50 AM EDTPatient InstructionsPatient [...] go into spontaneous labor desires IOL at [facility] at 41 weeks -Sign H&P and schedule at next visit PTL precautions reviewed and when to call RTO in 2 weeks Carey Frost APRN.CNM [facility] 11-05-2024 Miscellaneous Notes GE-S: Kiera Arvizu is [...] go into spontaneous labor desires IOL at [facility] at 41 weeks -Sign H&P and schedule at next visit PTL precautions reviewed and when to call RTO in 2 weeks Carey Frost APRN.CNM documented in this encounter [facility] 11-05-2024 Instructions Kayla Walker MA - 11/05/2024 10:18 AM EDT SEQUENTIAL SCREENINGS The [facility] offers sequential screenings for women who are [...] It will require an appointment with our microbiology quality control technician. This is not an ultrasound performed [...] the above symptoms, contact our office at [phone] and ask to speak with a nurse. After hours, you can call doctors registry at [phone] OR call [facility] at [phone] and ask to have the doctor director of promotions paged. If you consider this an emergency, dial 8-6-9 or go to your nearest emergency department. NEED HELP? Are you dealing with a violent or abusive relationship? Are you a victim of rape or sexual assult? Call [facility] ([place]) 24 hour Crisis Hotline: 724.680.2508 or 574-678-3144. MANUAL Your Guide to a Healthy manual is now on-line. Visit [email or web address] to download your free copy documented in this encounter [facility] 10-30-2024 Note HNO ID: [id number] Author: BIBIANA LEIGH MA Service: ? Author Type: Curam Developer Type: Progress Notes Filed: 10/30/2024 09:28 Note Text: POPULATION HEALTH NAVIGATION OUTREACH Action/FYI Called and spoke with pt and confirmed junior sales representative. Reason for Outreach Medicaid OB/Peds Care Gaps due: N/A Patient Contacted: Spoke to patient/parent/or legal guardian Patient identified by name and : Yes Medicaid OB/Peds actions taken: /Notch Grinder added Navigation Signature: Bibiana aJy MA October 30, 2024 9:26 AM [facility] 10-28-2024 Note HNO ID: [id number] Author: BIBIANA LEIGH MA Service: ? Author Type: Curam Developer Type: Progress Notes Filed: 10/28/2024 14:01 Note Text: POPULATION HEALTH NAVIGATION OUTREACH Action/ attempt: Called and left message to call back to discuss junior sales representative. MC message sent. Reason for Outreach Medicaid OB/Peds Care Gaps due: N/A Patient Contacted: Unable or unnecessary to reach patient: Unable to reach patient Left message Center'dhart message sent Navigation Signature: Bibiana Jay MA October 28, 2024 12:49 PM [facility] 10-28-2024 History of Present illness Narrative POPULATION HEALTH NAVIGATION OUTREACH Action/ attempt: Called and left message to call back to discuss junior sales representative. MC message sent. Reason for Outreach Medicaid OB/Peds Care Gaps due: N/A Patient Contacted: Unable or unnecessary to reach patient: Unable to reach patient Left message Center'dhart message sent Navigation Signature: Bibiana Jay MA October 28, 2024 12:49 PM documented in this encounter [facility] 10-28-2024 Note Patient Outreach (NE TNAV) KIERA ARVIZU ([id number]) 1 F Date Time Provider Department 10/28/24 BIBIANA LEIGH During your visit today, we recorded the following information about you: Bibiana Leigh MA 10/28/2024 2:01 PM Signed POPULATION HEALTH NAVIGATION OUTREACH Action/FYI 1st attempt: Called and left message to call back to discuss junior sales representative. MC message sent. Reason for Outreach Medicaid OB/Peds Care Gaps due: N/A Patient Contacted: Unable or unnecessary to reach patient: Unable to reach patient Left message MyChart message sent Navigation Signature: Bibiana Jay MA October 28, 2024 12:49 PM Bibiana Leigh MA 10/30/2024 9:28 AM Signed POPULATION HEALTH NAVIGATION OUTREACH Action/FYI Called and spoke with pt and confirmed junior sales representative. Reason for Outreach Medicaid OB/Peds Care Gaps due: N/A Patient Contacted: Spoke to patient/parent/or legal guardian Patient identified by name and : Yes Medicaid OB/Peds actions taken: /Notch Grinder added Navigation Signature: Bibiana Jay MA October 30, 2024 9:26 AM Allergies As of Date: 10/28/2024 (No Known Allergies) Date Reviewed: 10/23/2024 Reviewed by: Devorah García LPN - Fully Assessed [facility] Navigation Outreach [[id number]] Cmt: Ob/peds Prescriptions as [...] Encounter Status:Closed by BIBIANA LEIGH on 10/28/24 [facility] 10-23-2024 Progress note Formatting of t [...] or sooner if needed Daija Roblero APRN.CNM [facility] Work Phone: 10-23-2024 Miscellaneous Notes S: Kiera [...] Daija Roblero APRN.CNM documented in this encounter [facility] 10-23-2024 Instructions Devorah García LPN - 10/23/2024 10:43 AM EDT SEQUENTIAL SCREENINGS The [facility] offers sequential screenings for women who are [...] It will require an appointment with our microbiology quality control technician. This is not an ultrasound performed [...] the above symptoms, contact our office at [phone] and ask to speak with a nurse. After hours, you can call doctors registry at [phone] OR call [facility] at [phone] and ask to have the doctor director of promotions paged. If you consider this an emergency, dial or go to your nearest emergency department. NEED HELP? Are you dealing with a violent or abusive relationship? Are you a victim of rape or sexual assult? Call [facility] ([place]) 24 hour Crisis Hotline: 136.423.7336 or 753-137-7650. MANUAL Your Guide to a Healthy manual is now on-line. Visit [email or web address] to download your free copy documented in this encounter [facility] 10-15-2024 Progress note Formatting of t his note might be different from the original. KJ - S: Kiera denies LOF, contractions or vaginal bleeding. O: 36w2d, see flow sheet SENSITIVE EXAM: The sensitive examination was discussed with the Patient or Patient's Authorized Hotbed Lever Operator. As applicable, any other physician, advance practice provider, medical student, or other health professional student that will be observing or involved in the sensitive examination for educational or training purposes was discussed with the Patient or Authorized Hotbed Lever Operator. The Patient or Authorized Hotbed Lever Operator has agreed to proceed with the sensitive examination. (Sensitive examination includes inspection and/or palpation of the breasts, pelvis, prostate and anorectal regions). A/P: Assessment & Plan Supervision of high risk in third trimester ([facility]) Orders: URINE OB DIP B/O ROUTINE, GROUP B STREPTOCOCCUS BY PCR Desires (vaginal after ) trial ([facility]) Patient requests IOL at [facility] if no spontaneous labor by [facility]C. Orders: URINE OB DIP B/O History of section Orders: URINE OB DIP B/O History of delivery, currently ([facility]) Orders: URINE OB DIP B/O Anemia complicating , third trimester ([facility]) Continue iron & PNV Orders: URINE OB DIP B/O 36 weeks gestation of ([facility]) GBS today Orders: URINE OB DIP B/O Growth US today shows AGA with AC at 96% Reviewed PTL & FM precautions Kamar Valdovinos MD [facility] 10-15-2024 Miscellaneous Notes KJ - S: Kiera denies LOF, contractions or vaginal bleeding. O: 36w2d, see flow sheet SENSITIVE EXAM: The sensitive examination was discussed with the Patient or Patient's Authorized Hotbed Lever Operator. As applicable, any other physician, advance practice provider, medical student, or other health professional student that will be observing or involved in the sensitive examination for educational or training purposes was discussed with the Patient or Authorized Hotbed Lever Operator. The Patient or Authorized Hotbed Lever Operator has agreed to proceed with the sensitive examination. (Sensitive examination includes inspection and/or palpation of the breasts, pelvis, prostate and anorectal regions). A/P: Assessment & Plan Supervision of high risk in third trimester ([facility]) Orders: URINE OB DIP B/O ROUTINE, GROUP B STREPTOCOCCUS BY PCR Desires (vaginal after ) trial ([facility]) Patient requests IOL at [facility] if no spontaneous labor by [facility]. Orders: URINE OB DIP B/O History of section Orders: URINE OB DIP B/O History of delivery, currently ([facility]) Orders: URINE OB DIP B/O Anemia complicating , third trimester ([facility]) Continue iron & PNV Orders: URINE OB DIP B/O 36 weeks gestation of ([facility]) GBS today Orders: URINE OB DIP B/O Growth US today shows AGA infant with AC at 96% Reviewed PTL & FM precautions Kamar Valdovinos MD documented in this encounter [facility] 10-15-2024 Note Indication Evaluation of growth. History [...] 14 oz EFW by: Hadlock (HC-AC-FL) Extended Plating Stripper 2.5 mm Extremities / Bony Struc FL [...] 10/15/2024 9:37 AM EDT SEQUENTIAL SCREENINGS The [facility] offers sequential screenings for women who are [...] It will require an appointment with our microbiology quality control technician. This is not an ultrasound performed [...] the above symptoms, contact our office at [phone] and ask to speak with a nurse. After hours, you can call doctors registry at [phone] OR call [facility] at [phone] and ask to have the doctor director of promotions paged. If you consider this an emergency, dial 9-1-1 or go to your nearest emergency department. NEED HELP? Are you dealing with a violent or abusive relationship? Are you a victim of rape or sexual assult? Call [facility] ([place]) 24 hour Crisis Hotline: 682.475.9980 or 735-385-9162. MANUAL Your Guide to a Healthy manual is now on-line. Visit [email or web address] to download your free copy documented in this encounter [facility] 10-02-2024 Progress note Formatting of t his [...] Supervision of high risk in third trimester ([facility]) - ICD9: V23.9, ICD10: O09.93 (primary diagnosis) - Continue PNV and LDA 2. 34 weeks gestation of ([facility]) - ICD9: V22.2, ICD10: Z3A.34 - GBS next visit 3. History of section - ICD9: V45.89, ICD10: Z98.891 4. Desires (vaginal after ) trial ([facility]) - ICD9: 654.20, ICD10: O34.219 5. History of delivery, currently ([facility]) - ICD9: V23.89, ICD10: O09.899 - Delivered at 29 weeks due to pre e - Growth at 32 weeks appropriate, repeat next visit 6. History of pre-eclampsia - ICD9: V13.29, ICD10: Z87.59 7. Anemia complicating , third trimester ([facility]) - ICD9: 648.23, 285.9, ICD10: O99.013 - Continue oral iron - Repeat CBC today PTL precautions and kick counts reviewed. RTO in 2 weeks or sooner as needed. Mik Mendoza APRN.MASON TENDER [facility] 10-02-2024 Miscellaneous Notes EH - S: Kiera [...] Supervision of high risk in third trimester ([facility]) - ICD9: V23.9, ICD10: O09.93 (primary diagnosis) - Continue PNV and LDA 2. 34 weeks gestation of ([facility]) - ICD9: V22.2, ICD10: Z3A.34 - GBS next visit 3. History of section - ICD9: V45.89, ICD10: Z98.891 4. Desires (vaginal after ) trial ([facility]) - ICD9: 654.20, ICD10: O34.219 5. History of delivery, currently ([facility]) - ICD9: V23.89, ICD10: O09.899 - Delivered at 29 weeks due to pre e - Growth at 32 weeks appropriate, repeat next visit 6. History of pre-eclampsia - ICD9: V13.29, ICD10: Z87.59 7. Anemia complicating , third trimester ([facility]) - ICD9: 648.23, 285.9, ICD10: O99.013 - Continue oral iron - Repeat CBC today PTL precautions and kick counts reviewed. RTO in 2 weeks or sooner as needed. Mik Mendoza APRN.MASON TENDER documented in this encounter [facility] 10-02-2024 Instructions Kayla Walker MA - 10/02/2024 8:30 AM EDT SEQUENTIAL SCREENINGS The [facility] offers sequential screenings for women who are [...] It will require an appointment with our microbiology quality control technician. This is not an ultrasound performed [...] the above symptoms, contact our office at [phone] and ask to speak with a nurse. After hours, you can call doctors registry at [phone] OR call [facility] at [phone] and ask to have the doctor director of promotions paged. If you consider this an emergency, dial 8--2 or go to your nearest emergency department. NEED HELP? Are you dealing with a violent or abusive relationship? Are you a victim of rape or sexual assult? Call [facility] ([place]) 24 hour Crisis Hotline: 806.840.4549 or 966-322-4230. MANUAL Your Guide to a Healthy manual is now on-line. Visit [email or web address] to download your free copy documented in this encounter [facility] 09-19-2024 Note Indication Evaluation of growth History [...] Supervision of high risk in third trimester ([facility]) - ICD9: V23.9, ICD10: O09.93 (primary diagnosis) 2. History of delivery, currently ([facility]) - ICD9: V23.89, ICD10: O09.899 3. History of pre-eclampsia - ICD9: V13.29, ICD10: Z87.59 Normal BP 4. History of section - ICD9: V45.89, ICD10: Z98.891 Desires TOLAC 5. Desires (vaginal after ) trial ([facility]) - ICD9: 654.20, ICD10: O34.219 6. 32 weeks gestation of ([facility]) - ICD9: V22.2, ICD10: Z3A.32 Katherine Brunner MD [facility] 09-18-2024 Miscellaneous Notes S: Kiera Arvizu is [...] Supervision of high risk in third trimester ([facility]) - ICD9: V23.9, ICD10: O09.93 (primary diagnosis) 2. History of delivery, currently ([facility]) - ICD9: V23.89, ICD10: O09.899 3. History of pre-eclampsia - ICD9: V13.29, ICD10: Z87.59 Normal BP 4. History of section - ICD9: V45.89, ICD10: Z98.891 Desires TOLAC 5. Desires (vaginal after ) trial ([facility]) - ICD9: 654.20, ICD10: O34.219 6. 32 weeks gestation of ([facility]) - ICD9: V22.2, ICD10: Z3A.32 Katherine Brunner MD documented in this encounter [facility] 09-18-2024 Instructions Brenda Anand MA - 09/18/2024 2:14 PM EDT SEQUENTIAL SCREENINGS The [facility] offers sequential screenings for women who are [...] It will require an appointment with our microbiology quality control technician. This is not an ultrasound performed [...] the above symptoms, contact our office at [phone] and ask to speak with a nurse. After hours, you can call doctors registry at [phone] OR call [facility] at [phone] and ask to have the doctor director of promotions paged. If you consider this an emergency, dial 91-5 or go to your nearest emergency department. NEED HELP? Are you dealing with a violent or abusive relationship? Are you a victim of rape or sexual assult? Call [facility] ([place]) 24 hour Crisis Hotline: 100.924.5548 or 255-920-7613. MANUAL Your Guide to a Healthy manual is now on-line. Visit [email or web address] to download your free copy documented in this encounter [facility] 09-04-2024 Progress note Formatting of t his [...] or sooner if needed Daija Roblero APRN.CNM [facility] 09-04-2024 Miscellaneous Notes S: Kiera Arvizu is [...] Daija Roblero APRN.CNM documented in this encounter [facility] 09-04-2024 Instructions Manny Carney MA - 09/04/2024 9:34 AM EDT SEQUENTIAL SCREENINGS The [facility] offers sequential screenings for women who are [...] It will require an appointment with our microbiology quality control technician. This is not an ultrasound performed [...] the above symptoms, contact our office at [phone] and ask to speak with a nurse. After hours, you can call doctors registry at [phone] OR call [facility] at [phone] and ask to have the doctor director of promotions paged. If you consider this an emergency, dial 11-25- or go to your nearest emergency department. NEED HELP? Are you dealing with a violent or abusive relationship? Are you a victim of rape or sexual assult? Call [facility] ([place]) 24 hour Crisis Hotline: 644.899.6577 or 427-105-4629. MANUAL Your Guide to a Healthy manual is now on-line. Visit [email or web address] to download your free copy documented in this encounter [facility] 08-29-2024 Telephone encounter Note Message sent to Monica Lopez to ask if patient can be authorized, [facility] 08-29-2024 Miscellaneous Notes Message sent to Monica Lopez to ask if patient can be authorized, Received request to assist patient in scheduling growth US at 32 weeks. Order placed. Patient needs financial clearance. I have placed a hold time for 09/18 at 2:30 for patient. Please schedule once approved. documented in this encounter [facility] 08-21-2024 Telephone encounter Note Received request to assist patient in scheduling growth US at 32 weeks. Order placed. Patient needs financial clearance. I have placed a hold time for 09/18 at 2:30 for patient. Please schedule once approved. [facility] 08-21-2024 Progress note Formatting of t his [...] RTO in 2 weeks Carey Frost APRN.CNM [facility] 08-21-2024 Miscellaneous Notes GE-S: Kiera Arvizu is [...] Carey Frost APRN.CNM documented in this encounter [facility] 08-21-2024 Instructions Carey Frost APRN.CNM - 08/21/2024 9:10 AM EDT SEQUENTIAL SCREENINGS The [facility] offers sequential screenings for women who are [...] It will require an appointment with our microbiology quality control technician. This is not an ultrasound performed [...] the above symptoms, contact our office at [phone] and ask to speak with a nurse. After hours, you can call doctors registry at [phone] OR call [facility] at [phone] and ask to have the doctor director of promotions paged. If you consider this an emergency, dial or go to your nearest emergency department. NEED HELP? Are you dealing with a violent or abusive relationship? Are you a victim of rape or sexual assult? Call [facility] ([place]) 24 hour Crisis Hotline: 576.881.7397 or 021-163-8521. MANUAL Your Guide to a Healthy manual is now on-line. Visit [email or web address] [email or web address] to download your free copy COUNTING YOUR [...] reach 10 kicks documented in this encounter [facility] 07-24-2024 Note HNO ID: [id number] Author: MIK MENDOZA APRN.MASON TENDER Service: ? Author Type: Nurse Practitioner Type: [...] Supervision of high risk in second trimester ([facility]) - ICD9: V23.9, ICD10: O09.92 (primary diagnosis) 2. 24 weeks gestation of ([facility]) - ICD9: V22.2, ICD10: Z3A.24 - GTT, CBC, RPR next visit 3. History of delivery, currently ([facility]) - ICD9: V23.89, ICD10: O09.899 - Due to pre eclampsia 4. History of pre-eclampsia - ICD9: V13.29, ICD10: Z87.59 - Continue LDA 5. History of section - ICD9: V45.89, ICD10: Z98.891 - Wants to - Previously counseled by Dr. Valdovinos PTL precautions reviewed. RTO in 4 weeks or sooner as needed. Mik Mendoza APRN.MASON TENDER [facility] 07-24-2024 History of Present illness Narrative [...] Supervision of high risk in second trimester ([facility]) - ICD9: V23.9, ICD10: O09.92 (primary diagnosis) 2. 24 weeks gestation of ([facility]) - ICD9: V22.2, ICD10: Z3A.24 - GTT, CBC, RPR next visit 3. History of delivery, currently ([facility]) - ICD9: V23.89, ICD10: O09.899 - Due to pre eclampsia 4. History of pre-eclampsia - ICD9: V13.29, ICD10: Z87.59 - Continue LDA 5. History of section - ICD9: V45.89, ICD10: Z98.891 - Wants to - Previously counseled by Dr. Valdovinos PTL precautions reviewed. RTO in 4 weeks or sooner as needed. Mik Mendoza APRN.MASON TENDER documented in this encounter [facility] 07-24-2024 Instructions Devorah García LPN - 07/24/2024 8:35 AM EDT SEQUENTIAL SCREENINGS The [facility] offers sequential screenings for women who are [...] It will require an appointment with our microbiology quality control technician. This is not an ultrasound performed [...] the above symptoms, contact our office at [phone] and ask to speak with a nurse. After hours, you can call doctors registry at [phone] OR call [facility] at [phone] and ask to have the doctor director of promotions paged. If you consider this an emergency, dial 9-1-0 or go to your nearest emergency department. NEED HELP? Are you dealing with a violent or abusive relationship? Are you a victim of rape or sexual assult? Call [facility] ([place]) 24 hour Crisis Hotline: 875.413.3298 or 474-524-9612. MANUAL Your Guide to a Healthy manual is now on-line. Visit [email or web address] Joe to download your free copy documented in this encounter [facility] 06-24-2024 Progress note Formatting of t his [...] ICD9: V22.2, ICD10: Z3A.20 Katherine Brunner MD [facility] 06-24-2024 Miscellaneous Notes S: Kiera Arvizu is [...] Katherine Brunner MD documented in this encounter [facility] 05-20-2024 Telephone encounter Note 15w1d Patient called to inquire about her results of [id number]. Advised that provider has not reviewed her labs as of yet. Notified of baby's gender per patient and 's request. Katherine Philip RN [facility] 05-20-2024 Miscellaneous Notes 15w1d Patient called to inquire about her results of [id number]. Advised that provider has not reviewed her labs as of yet. Notified of baby's gender per patient and 's request. Katherine Philip RN documented in this encounter [facility] 05-14-2024 Progress note Formatting of t his [...] blood pressure complications would recommend repeat at [facility] or referral to tertiary care center if strongly desires IOL. Recommend scheduling repeat at 39-40 weeks. All questions answered. Kamar Valdovinos MD [facility] 05-14-2024 Miscellaneous Notes KJ - VB No. [...] blood pressure complications would recommend repeat at [facility] or referral to tertiary care center if strongly desires IOL. Recommend scheduling repeat at 39-40 weeks. All questions answered. Kamar Valdovinos MD documented in this encounter [facility] 05-14-2024 Progress note Formatting of t his note might be different from the original. Anatomy ultrasound reviewed. No abnormalities identified. Follow up as clinically indicated. Please place copy in ob chart. Collette Cisneros MD [facility] Work Phone: 05-14-2024 Miscellaneous Notes Anatomy ultrasound reviewed. No abnormalities identified. Follow up as clinically indicated. Please place copy in ob chart. Collette Cisneros MD documented in this encounter [facility] 05-14-2024 History of Present illness Narrative Obstetrics & Gynecology [place] [facility] Outpatient Visit Type: Maternal Medicine Consult Outpatient Visit Date: May 14, 2024 Service Time: 830 AM Requesting Provider: Mik Mendoza History of Present Illness: Kiera Arvizu is 23 year old at 14w2d presenting for consultation with Maternal- Medicine at [facility] in the setting of history of preeclampsia [...] indicated. - Single, live, intrauterine . - Vaughn rump length measurement and biometry are consistent [...] ultrasound. Problem List Items Addressed This Visit CONSUMER SERVICES ADVISOR History of section Overview Wants to 04/12/[address] [facility] Surgical Operations & Procedures: Date of delivery: 04/12/22 Procedure: : Low Transverse Anesthesia: Spinal anesthesia and TAP block Laceration(s): n/a Delivery Complications: none EBL: 500 mL History of pre-eclampsia Overview Delivered at [address] [facility]. Baseline labs were ordered but not drawn [...] which included preparing to see the patient, snhp-bp-axut patient care, completing clinical documentation, obtaining and/or reviewing separately obtained history, and communicating results to the patient/family/caregiver. I shared my findings and recommendations via the shared medical record or via the mail to the referring provider. Darnell Blank MD documented in this encounter [facility] 05-14-2024 Note HNO ID: [id number] Author: DARNELL BLANK MD Service: ? Author Type: Physician Type: Progress Notes Filed: 05/14/2024 09:20 Note Text: Obstetrics AND Gynecology [place] [facility] Outpatient Visit Type: Maternal Medicine Consult Outpatient Visit Date: May 14, 2024 Service Time: 830 AM Requesting Provider: Mik Mendoza History of Present Illness: Kiera Arvizu is 23 year old at 14w2d presenting for consultation with Maternal- Medicine at [facility] in the setting of history of preeclampsia . History Review Obstetric History T0 L1 SAB0 IAB0 Ectopic0 Multiple0 Live Births1 Name of Baby 1: Steavn Date: 04/12/22 GA: 29w2d Type: , Low [...] indicated. - Single, live, intrauterine . - Vaughn rump length measurement and biometry are consistent [...] ultrasound. Problem List Items Addressed This Visit CONSUMER SERVICES ADVISOR History of section Overview Wants to 04/12/[address] [facility] Surgical Operations AND Procedures: Date of delivery: 04/12/22 Procedure: : Low Transverse Anesthesia: Spinal anesthesia and TAP block Laceration(s): n/a Delivery Complications: none EBL: 500 mL History of pre-eclampsia Overview Delivered at [address] [facility]. Baseline labs were ordered but not drawn [...] letter to requesting (more content not included)... [facility] 05-14-2024 Instructions Kayla Walker MA - 05/14/2024 8:45 AM EST SEQUENTIAL SCREENINGS The [facility] offers sequential screenings for women who are [...] It will require an appointment with our microbiology quality control technician. This is not an ultrasound performed [...] the above symptoms, contact our office at [phone] and ask to speak with a nurse. After hours, you can call doctors registry at [phone] OR call [facility] at [phone] and ask to have the doctor director of promotions paged. If you consider this an emergency, dial or go to your nearest emergency department. NEED HELP? Are you dealing with a violent or abusive relationship? Are you a victim of rape or sexual assult? Call [facility] ([facility] 24 hour Crisis Hotline: 755.341.8422 or 517-589-4597. MANUAL Your Guide to a Healthy manual is now on-line. Visit [email or web address] Rosalesadam to download your free copy documented in this encounter [facility] 03-29-2024 Telephone encounter Note 1st risk assessment form submitted 03/29/2024 7w 5d today [facility] 03-29-2024 Miscellaneous Notes 1st risk assessment form submitted 03/29/2024 7w 5d today documented in this encounter [facility] 03-28-2024 Note HNO ID: [id number] Author: MIK MENDOZA APRN.MASON TENDER Service: ? Author Type: Nurse Practitioner Type: Progress Notes Filed: 03/28/2024 10:34 Note Text: Data Conversion Developer offered: Patient declines. 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 [facility] 03-28-2024 History of Present illness Narrative Data Conversion Developer offered: Patient declines. 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 Mik Mendoza APRN.MASON TENDER Does patient have penicillin allergy: No REVIEW [...] discussed with the Patient or Patient's Authorized Hotbed Lever Operator. As applicable, any other physician, advance practice provider, medical student, or other health professional student that will be observing or involved in the sensitive examination for educational or training purposes was discussed with the Patient or Authorized Hotbed Lever Operator. The Patient or Authorized Hotbed Lever Operator has agreed to proceed with the [...] Your guide to a health and the Channel Supervisor. Discussed hemoglobin electrophoresis. Patient: Declines Reviewed midwifery and first cook services that are available. Reviewed [employer] program. Patient declines referral at this time. [...] (28-30 weeks): [] Consent [] Contraception [] Notch Grinder [] TeamBirth handout Third trimester (36-40 weeks): [] GBS [] Presentation - [] Scheduled [] yes - Hibiclens, pre-op instructions, CBC, T&S ordered [] no [] H&P [] Preferences worksheet [] Scanned in EMR History of Section - 03/28/2024 Comment: Wants to - to discuss with physician 04/12/[address] [facility] Surgical Operations & Procedures: Date of delivery: 04/12/22 Procedure: : Low Transverse Anesthesia: Spinal anesthesia and TAP block Laceration(s): n/a Delivery Complications: none EBL: 500 mL History of Pre-Eclampsia - 03/28/2024 Comment: March 28, 2024 Delivered at [address] [facility]. Baseline labs ordered. MFM consult ordered. History [...] Mik Mendoza APRN.CNP documented in this encounter [facility] 03-25-2024 Instructions Mik Mendoza APRN.CNP - 03/25/2024 3:46 PM EST Please select the following link to access the [facility] Your Guide to a Healthy . [email or web address] Please select the following link to access the [facility] Your Guide to a Healthy . [email or web address] [facility] provides specialized care for patients whose experiences [...] To speak with our team, please call [phone] or email documented in this encounter [facility] 02-28-2024 Miscellaneous Notes Noted. Will have patient sign a release of records if not received before her appointment. Some records are available in Care Everywhere. Katherine Philip RN Patient wanted to let the office know she has been trying to request her records from [employer] for over a month now, and she still has not heard anything back. Patient states she has tried multiple times. Please review. Nandini Hardin February 28, 2024 11:25 AM documented in this encounter [facility] 02-28-2024 Telephone encounter Note Noted. Will have patient sign a release of records if not received before her appointment. Some records are available in Care Everywhere. Katherine Philip RN [facility] 02-28-2024 Telephone encounter Note Patient wanted to let the office know she has been trying to request her records from [employer] for over a month now, and she still has not heard anything back. Patient states she has tried multiple times. Please review. Nandini Hardin February 28, 2024 11:25 AM [facility] 12-26-2023 Telephone encounter Note Patient rescheduled with Dr Mojica. She will have her records sent to our office. Fax number provided [facility] 12-26-2023 Miscellaneous Notes Patient rescheduled with Dr Mojica. She will have her records sent to our office. Fax number provided Left message for patient to return phone call. Patient is scheduled for [facility] 01/02/2024 for preconceptual counseling . There is no referral. Appointment notes states pre-eclampsia with previous . Please triage. Dr Blank said it probably would be best for patient to start with OB doctor here for pre-conceptual counseling to see if referral to MFM is necessary. We would also need records if she proceeds with any appointment-none found in [facility] or [facility]-everywhere documented in this encounter [facility] 12-19-2023 Telephone encounter Note Left message for [...] she proceeds with any appointment-none found in [employer] or [facility]-everywhere [facility] 04-15-2022 History of Present illness Narrative Images [...] with more than 50% of the total lpwn-hf-rmbv time of the visit in counseling/coordination of [...] stable to start PreEwSF - Transferred from [place] for persistent severe range BP's, BROWN, and [...] the AM due to TOMASA - improving. 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 Plan DC home POD#3 or [...] from NICU Potential need for transfer to [facility] if needs esclation of care, based on a variety of factors. Handouts given. No further questions. A/P: Patient is a 21 Year old At 29 Weeks 2 Days by ultrasound With 1. Current Management per OB 2. NICU to attend delivery 3. Call NICU if further questions. Maya Mahoney APRN-JANICE Peck CNP documented in this encounter [facility] 04-14-2022 Obstetrics Note Follow up visit [...] pump when she is ready for that. [facility] 04-14-2022 Miscellaneous Notes Follow up visit [...] for this pt. Due to: infant in [facility] and 29 weeks Hospital breast pump, supplies [...] rental pump for home- will speak to [facility] about rental home pump 21 year old [...] but not emergent. Safety huddle performed with fire extinguisher charger, patient's primary RN, residents, attending, NICU staff and OB anesthesia in attendance. Decision made to proceed with unscheduled PCD at [address] Harris and resident services coordinator are available. All in agreement. Harris Beltre DO 04/12/2022 5:30 PM documented in this encounter [facility] 04-14-2022 Plan of care note The [...] other facility with appropriate resources Outcome: Progressing [facility] 04-13-2022 Obstetrics Note Breast pump use [...] rental pump for home- will speak to [facility] about rental home pump [facility] 04-13-2022 Note Formatting of this n ote [...] home. Denies any concerns at this time. [employer] 04-13-2022 Note Formatting of this n ote [...] home. Denies any concerns at this time. [employer] 04-13-2022 Plan of care note The patient [...] other facility with appropriate resources Outcome: Progressing [facility] 04-12-2022 Note Patient: Kiera morrell Procedure Summary Date: 04/12/22 Room / Location: [facility] Labor and Delivery Anesthesia Start: 1804 Anesthesia [...] once all PACU criteria has been met. [facility] 04-12-2022 Note Patient: Kiera morrell Procedure Summary Date: 04/12/22 Room / Location: [facility] Labor and Delivery Anesthesia Start: 1804 Anesthesia [...] opportunity for questions and acknowledgement of understanding. [facility] 04-12-2022 Note Peripheral Block Time Out: 04/12/2022 7:15 PM Patient location during procedure: Procedural Start time: 04/12/2022 7:16 PM End time: 04/12/2022 7:26 PM Reason for block: at surgeon's request and post-op pain management Staffing Performed: WRAPPER HAND Anesthesiologist: Loyd Jamil MD Resident/WRAPPER HAND: JANICE Leal CRNA Preanesthetic Checklist Completed: patient identified, IV checked, site marked, risks and benefits discussed, surgical consent, monitors and equipment checked, pre-op evaluation and timeout performed Region: [place] Primary: TAP (60ml of Bupivacaine 0.375% with dexamethasone 0.01% with epinephrine 1:200,000 divided evenly bilaterally) Peripheral Block Patient position: supine Prep: ChloraPrep Patient monitoring: heart rate, cardiac nurse specialist and continuous pulse ox O2: Room air [...] injection and Local anesthetic injected without difficultyMedications aktXKDXCpzdoi-cedlbshbbyg-qdpxpqunb ne (TAP) syringe - Transabdominal Plane 40 mL - 04/12/2022 7:16:00 PM [facility] 04-12-2022 Note Department of Obstet rics and Gynecology Delivery Discharge Summary Admission on 04/12/2022 3:09 PM Hospital course: 29w2d transport from [place] for severe range BP, headache and creatinine [...] Information for the patient's : Fritz Bello [[id number]] male 1200 g (2 lb 10.3 oz) Apgars: Information for the patient's : BenFritz [[id number]] : Infant: Boy; circumcision not done, baby [...] Your Medications These medications were sent to [facility] [address] [place] [address] Hours: Monday to Monday 10 am to [...] [] Order a blood pressure kit through [facility] (or the patient's own pharmacy on the weekend) [] Order the blood pressure log through [employer] [x] Place an office visit or telephone [...] her physician if any of these occur. [facility] 04-12-2022 Note Spinal Block Time Out: 04/12/2022 6:08 PM Patient location during procedure: OB Start time: 04/12/2022 6:09 PM End time: 04/12/2022 6:20 PM Reason for block: procedure for pain Staffing Performed: WRAPPER HAND Anesthesiologist: Loyd Jamil MD Resident/WRAPPER HAND: Kady Elizabeth APRN - THOMAS Spinal Block Patient position: sitting Prep: ChloraPrep Sterility prep: drape Approach: midline Location: L3-4 Injection technique: single-shot Needle Needle type: pencil-tip Needle gauge: 25 G Assessment Sensory level: T4 Number of attempts: 1 Procedure assessment: patient tolerated procedure well with no immediate complications [facility] 04-12-2022 Hospital Discharge instructions Riya Harris [...] as 8 weeks after delivery. Bleeding may poultry picking machine tender and then decrease again around 7-10 days [...] avoid constipation you may take a mild haqc-qpv-upkebbd stool softener (such as colace) as recommended [...] positive or a Person Under Investigation (PUI) Edujkr-bb-zildz transmission of COVID-19 during is unlikely, but after a baby is susceptible to fmbcus-sj-ofnkux spread. After your baby is born, your [...] clean your hands with an alcohol-based hand commercial credit analyst that contains at least 60% alcohol. Clean your hands often Wash your hands often with soap and water for at least 20 seconds, especially after blowing your nose, coughing, or sneezing; going to the bathroom; and before eating or preparing food. If soap and water are not readily available, use an alcohol-based hand commercial credit analyst with at least 60% alcohol, covering all [...] isolation precautions should be made on a lwpz-cc-opjk basis, in consultation with healthcare providers and [...] respiratory tract signs and symptoms. Ways to [place] with Anxiety & Stress It is normal [...] an illness that was first found in [facility], in February 2019. It has since [...] seen in people before. This virus spreads cxeamc-rn-wsgpmc through droplets from coughing and sneezing. It [...] water aren't available, use an alcohol-based hand commercial credit analyst. Call 911 anytime you think you may [...] of: June 26, 2019 Content Version: 12.4 [employer]. Care instructions adapted under license by your healthcare professional. If you have questions about a medical condition or this instruction, always ask your healthcare professional. [employer] disclaims any warranty or liability for your use of this information. General Recommendations for Routine Cleaning and Disinfection of Households Community members can practice routine cleaning of frequently touched surfaces (for example: tables, doorknobs, light switches, handles, desks, toilets, faucets, sinks) with household instrumentation technologist and EPA-registered disinfectants that are appropriate for [...] appropriate. These supplies include tissues, paper towels, instrumentation technologist and EPA-registered disinfectants (see list link at [facility] website). If a separate bathroom is not [...] be used for other purposes. Consult the health and safety representative's instructions for cleaning and disinfection products used. [...] used if appropriate for the surface. Follow health and safety representative's instructions for application and proper ventilation. Check [...] water Products with EPA-approved emerging viral pathogens [facility] iconexternal icon are expected to be effective against COVID-19 based on data for harder to kill viruses. Follow the health and safety representative's instructions for all cleaning and disinfection products (e.g., concentration, application method and contact time, etc.). Soft (porous) surfaces such as carpeted floor, rugs, and drapes Remove visible contamination if present and clean with appropriate instrumentation technologist indicated for use on these surfaces. After cleaning: Launder items as appropriate in accordance with the health and safety representative's instructions. If possible, launder items using the [...] items as appropriate in accordance with the health and safety representative's instructions. If possible, launder items using the warmest appropriate water setting for the items and dry items completely. Dirty laundry from an ill person can be washed with other people's items. Clean and disinfect clothes hampers according to guidance above for surfaces. If possible, consider placing a bag sealer that is either disposable (can be thrown away) or can be laundered. CDC has a list of EPA approved cleaning products on their website - https://www.cdc.gov/coronavirus/201 9-ncov/community/home/cleaning-disi nfection.html https://www.[employer]/N mefk-Dsbwacvgjmq-Qgisptbi-Products- List.pdf Grocery Stores with delivery and poultry picking machine tender services: [employer]: Free poultry picking machine tender at locations Delivery is $12.95 a month Website - [facility] [place]: Cyber Software Engineer $2.95 (1st order is free) Delivery is $14.95 Website - [employer] Keisha Dickey: plastics supervisor is free Delivery is $5.95 Website [email or web address]: plastics supervisor is $4.95 Delivery is $9.95 Website [employer]: plastics supervisor is $4.95 Delivery is $9.95 [employer]: Can be ordered for delivery and poultry picking machine tender with [employer] Website - [employer]: Free deliver for first 3 orders of $35 or more Website - [employer] Will deliver from [employer], [employer], [employer], and [employer]. Annual membership is $99 Monthly membership is $14 documented in this encounter [facility] 04-12-2022 Note Patient: Kiera morrell Procedure [...] products. patient is NPO Additional Equipment Requests [facility] [employer] [facility] 04-12-2022 Note Attestation signed by Gia Mclaughlin MD at 04/12/2022 7:09 PM I independently saw and evaluated the patient. I agree with the findings and plan of care as documented in the resident's note. Transport from [place] after severe range BP, headache and creatinine [...] Magnesium sulfate is running. Transport: Yes from [place] Prior Hospitalizations: No Estimated Due Date: Estimated Date of Delivery: 06/26/22 CARE: Complications: PreEwSF PAST OB HISTORY: OB History 1 Para 0 Term 0 AB Living 0 SAB IAB Ectopic Multiple Live Births 0 Detailed OB Histor (more content not included)... [facility] 04-12-2022 Note Formatting of this n [...] but not emergent. Safety huddle performed with fire extinguisher charger, patient's primary RN, residents, attending, NICU staff and OB anesthesia in attendance. Decision made to proceed with unscheduled PCD at [address] Harris and resident services coordinator are available. All in agreement. Harris Beltre DO 04/12/2022 5:30 PM [facility] 04-12-2022 Note Formatting of this n ote [...] but not emergent. Safety huddle performed with fire extinguisher charger, patient's primary RN, residents, attending, NICU staff and OB anesthesia in attendance. Decision made to proceed with unscheduled PCD at [address] Harris and resident services coordinator are available. All in agreement. Harris Beltre DO 04/12/2022 5:30 PM [facility] 04-12-2022 History and physical note Images from [...] Magnesium sulfate is running. Transport: Yes from [place] Prior Hospitalizations: No Estimated Due Date: Estimated [...] to low mild range on arrival to [facility] - PreE labs repeated on arrival and [...] documented in the resident's note. Transport from [place] after severe range BP, headache and creatinine [...] residency staff and nursing Gia Mclaughlin MD [facility] 04-12-2022 History and physical note Images from the original note were not included. Department of Maternal Medicine History and Physical CHIEF COMPLAINT[facility] HISTORY OF PRESENT ILLNESS: The patient [...] Magnesium sulfate is running. Transport: Yes from [place] Prior Hospitalizations: No Estimated Due Date: Estimated [...] to low mild range on arrival to [facility] - PreE labs repeated on arrival and [...] documented in the resident's note. Transport from [place] after severe range BP, headache and creatinine [...] Gia Mclaughlin MD documented in this encounter [facility] 04-12-2022 History and physi zak note Note Date/Time April 12, 2022 10:58am [facility] Medical Records Department [address] [place] [address] H&P Exam - CONSUMER SERVICES ADVISOR 04/12/22 1054 MR#: [id number] Acct: [id number] Name: KIERA BELLO Rep #:[id number] : 2000 21 From: Zuleyma ochoa DO PCP: Care Physician,No Primary Status :REG CLI Location: [id number] History and Physical Date of Admission: 04/12/22 [...] test of cure, marginal cord insertion, eczema CONSUMER SERVICES ADVISOR history G1: Current Medical history: 1. Eczema Surgical history: 1. Bunion removal bilateral feet 2013 2. [place] tooth extraction 2020 No history of issues [...] 5-5 throughout extremities FHR: 135/mod alise/+accel/no decel [place]: rare labs: A positive Syphilis negative Hepatitis [...] blood pressure stabilization with subsequent transport to [facility]. Reviewed likely plan of care with anticipated [...] [address] Gia Mclaughlin accepting transport [facility]. Started labetalol 100 mg BID. Creatinine [...] DO; No Primary Care Physician ~* Signed [facility] Work Phone: [phone]) 702-961007-28-2022 NotePap Smear Specimen AdequacyJuly 2021 8:45amComment.Satisfactory for evaluation. Endocervical and/or squamous metaplasticcells (endocervical component)are present.[facility] INTER[facility]ACED A#[id number] Work Phone: Comment on above:Satisfactory for evaluation. Endocervical and/or squamous metaplasticcells (endocervical component)are present.Evaluation noteNo assessment information availableWMercy Health St. Rita's Medical [facility] Work Phone: Evaluation note* Diagnosis Preeclampsia, severe, third trimester- Primary Preeclampsia, severe, third trimester S/P Severe pre-eclampsia in third trimester [facility] Encounter for supervision of high risk in first trimester, antepartum- Primary 7 weeks gestation of state, incidental History of pre-eclampsia Personal history of other genital system and obstetric disorders History of delivery, currently with history of pre-term labor History of section Other postprocedural status Constipation during in first trimester [place] during in first trimester [facility] Diagnosis History of delivery, currently - [...] for severe preeclampsia documented in this encounter [facility] note* Diagnosis Encounter for screening for [...] of state, incidental [facility]* Diagnosis History of delivery, currently - Primary with history of pre-term labor History of section Other postprocedural status History of pre-eclampsia Personal history of other genital system and obstetric disorders 14 weeks gestation of state, incidental History of pre-eclampsia- Primary Personal history of other genital system and obstetric disorders [facility] Diagnosis History of delivery, currently (HCC)- Primary with history of pre-term labor History of section Other postprocedural status History of pre-eclampsia Personal history of other genital system and obstetric disorders 14 weeks gestation of ([facility]) state, incidental Encounter for supervision of normal first in second trimester ([facility])- Primary Supervision of normal first History of pre-eclampsia Personal history of other genital system and obstetric disorders History of section Other postprocedural status 20 weeks gestation of ([facility]) state, incidental [facility]* Diagnosis History of delivery, currently ([facility])- Primary with history of pre-term labor History of section Other postprocedural status History of pre-eclampsia Personal history of other genital system and obstetric disorders 14 weeks gestation of ([facility]) state, incidental Encounter for anatomic survey ([facility])- Primary Encounter for anatomic survey 20 weeks gestation of ([facility]) state, incidental documented in this encounter [facility] note* Diagnosis History of delivery, currently ([facility])- Primary with history of pre-term labor History of section Other postprocedural status History of pre-eclampsia Personal history of other genital system and obstetric disorders 14 weeks gestation of ([facility]) state, incidental Supervision of high risk in second trimester ([facility])- Primary Unspecified high-risk 24 weeks gestation of ([facility]) state, incidental History of delivery, currently ([facility]) with history of pre-term labor History of pre-eclampsia Personal history of other genital system and obstetric disorders History of section Other postprocedural status documented in this encounter [facility] note* Diagnosis History of delivery, currently ([facility])- Primary with history of pre-term labor History of section Other postprocedural status History of pre-eclampsia Personal history of other genital system and obstetric disorders 14 weeks gestation of ([facility]) state, incidental Supervision of high risk in third trimester ([facility])- Primary Unspecified high-risk 28 weeks gestation of ([facility]) state, incidental History of delivery, currently ([facility]) with history of pre-term labor History of pre-eclampsia Personal history of other genital system and obstetric disorders History of section Other postprocedural status Desires (vaginal after ) trial ([facility]) Previous delivery, unspecified as to episode of care or not applicable [facility] Diagnosis History of delivery, currently ([facility])- Primary with history of pre-term labor History of section Other postprocedural status History of pre-eclampsia Personal history of other genital system and obstetric disorders 14 weeks gestation of ([facility]) state, incidental Supervision of high risk in third trimester ([facility])- Primary Unspecified high-risk History of delivery, currently ([facility]) with history of pre-term labor History of pre-eclampsia Personal history of other genital system and obstetric disorders History of section Other postprocedural status Desires (vaginal after ) trial ([facility]) Previous delivery, unspecified as to episode of care or not applicable 30 weeks gestation of ([facility]) state, incidental Anemia complicating , third trimester ([facility]) documented in this encounter [facility] note* Diagnosis History of delivery, currently ([facility])- Primary with history of pre-term labor History of section Other postprocedural status History of pre-eclampsia Personal history of other genital system and obstetric disorders 14 weeks gestation of ([facility]) state, incidental Supervision of high risk in third trimester ([facility])- Primary Unspecified high-risk History of delivery, currently ([facility]) with history of pre-term labor History of pre-eclampsia Personal history of other genital system and obstetric disorders History of section Other postprocedural status Desires (vaginal after ) trial ([facility]) Previous delivery, unspecified as to episode of care or not applicable 32 weeks gestation of ([facility]) state, incidental [facility]* Diagnosis History of delivery, currently ([facility])- Primary with history of pre-term labor History of section Other postprocedural status History of pre-eclampsia Personal history of other genital system and obstetric disorders 14 weeks gestation of ([facility]) state, incidental Supervision of high risk in third trimester ([facility]) Unspecified high-risk 28 weeks gestation of ([facility]) state, incidental History of delivery, currently ([facility]) with history of pre-term labor History of pre-eclampsia Personal history of other genital system and obstetric disorders documented in this encounter [facility] note* Diagnosis History of delivery, currently ([facility])- Primary with history of pre-term labor History of section Other postprocedural status History of pre-eclampsia Personal history of other genital system and obstetric disorders 14 weeks gestation of ([facility]) state, incidental Supervision of high risk in third trimester ([facility])- Primary Unspecified high-risk 34 weeks gestation of ([facility]) state, incidental History of section Other postprocedural status Desires (vaginal after ) trial ([facility]) Previous delivery, unspecified as to episode of care or not applicable History of delivery, currently ([facility]) with history of pre-term labor History of pre-eclampsia Personal history of other genital system and obstetric disorders Anemia complicating , third trimester ([facility]) [facility] Diagnosis History of delivery, currently ([facility])- Primary with history of pre-term labor History of section Other postprocedural status History of pre-eclampsia Personal history of other genital system and obstetric disorders 14 weeks gestation of ([facility]) state, incidental Supervision of high risk in third trimester ([facility]) Unspecified high-risk 28 weeks gestation of ([facility]) state, incidental History of delivery, currently ([facility]) with history of pre-term labor History of pre-eclampsia Personal history of other genital system and obstetric disorders Supervision of high risk in third trimester ([facility])- Primary Unspecified high-risk Desires (vaginal after ) trial ([facility]) Previous delivery, unspecified as to episode of care or not applicable History of section Other postprocedural status History of delivery, currently ([facility]) with history of pre-term labor Anemia complicating , third trimester ([facility]) 36 weeks gestation of ([facility]) state, incidental [facility]* Diagnosis History of delivery, currently ([facility])- Primary with history of pre-term labor History of section Other postprocedural status History of pre-eclampsia Personal history of other genital system and obstetric disorders 14 weeks gestation of ([facility]) state, incidental Supervision of high risk in third trimester ([facility])- Primary Unspecified high-risk Desires (vaginal after ) trial ([facility]) Previous delivery, unspecified as to episode of care or not applicable History of section Other postprocedural status History of delivery, currently ([facility]) with history of pre-term labor Anemia complicating , third trimester ([facility]) 36 weeks gestation of ([facility]) state, incidental * Assessment & Plan Note - Kamar Valdovinos MD - 10/15/2024 10:23 AM EDTAssociated Problem(s): Supervision of high risk in third trimester ([facility]) Orders: URINE OB DIP B/O ROUTINE, GROUP B STREPTOCOCCUS BY PCR * Assessment & Plan Note - Kamar Valdovinos MD - 10/15/2024 10:23 AM EDTAssociated Problem(s): Desires (vaginal after ) trial ([facility]) Patient requests IOL at [facility] if no spontaneous labor by [facility]. Orders: URINE OB DIP B/O * Assessment & Plan Note - Kamar Valdovinos MD - 10/15/2024 10:23 AM EDTAssociated Problem(s): History of section Orders: URINE OB DIP B/O * Assessment & Plan Note - Kamar Valdovinos MD - 10/15/2024 10:23 AM EDTAssociated Problem(s): History of delivery, currently ([facility]) Orders: URINE OB DIP B/O * Assessment & Plan Note - Kamar Valdovinos MD - 10/15/2024 10:23 AM EDTAssociated Problem(s): Anemia complicating , third trimester ([facility]) Continue iron & PNV Orders: URINE OB DIP B/O [facility]* Diagnosis History of delivery, currently ([facility])- Primary with history of pre-term labor History of section Other postprocedural status History of pre-eclampsia Personal history of other genital system and obstetric disorders 14 weeks gestation of ([facility]) state, incidental Supervision of high risk in third trimester ([facility])- Primary Unspecified high-risk Desires (vaginal after ) trial ([facility]) Previous delivery, unspecified as to episode of care or not applicable History of section Other postprocedural status History of delivery, currently ([facility]) with history of pre-term labor Anemia complicating , third trimester ([facility]) 36 weeks gestation of ([facility]) state, incidental 37 weeks gestation of ([facility])- Primary state, incidental Supervision of high risk in third trimester ([facility]) Unspecified high-risk History of section Other postprocedural status [facility]* Diagnosis History of delivery, currently ([facility])- Primary with history of pre-term labor History of section Other postprocedural status History of pre-eclampsia Personal history of other genital system and obstetric disorders 14 weeks gestation of ([facility]) state, incidental Supervision of high risk in third trimester ([facility])- Primary Unspecified high-risk Desires (vaginal after ) trial ([facility]) Previous delivery, unspecified as to episode of care or not applicable History of section Other postprocedural status History of delivery, currently ([facility]) with history of pre-term labor Anemia complicating , third trimester ([facility]) 36 weeks gestation of ([facility]) state, incidental Supervision of high risk in third trimester ([facility])- Primary Unspecified high-risk 39 weeks gestation of ([facility]) state, incidental History of section Other postprocedural status Desires (vaginal after ) trial ([facility]) Previous delivery, unspecified as to episode of care or not applicable History of delivery, currently ([facility]) with history of pre-term labor Anemia complicating , third trimester ([facility]) History of pre-eclampsia Personal history of other genital system and obstetric disorders documented in this encounter [facility] Here to get [...] takes no medications on a regular basis. [facility] Work Phone: History of Present illness NarrativeHere for f/u anxiety/depression. She states that she does not feel any different. No side effects with the lexapro. We will increase to 10 mg daily and see if things improve.[facility] Work Phone: History of Present illness NarrativeHere for f/u anxiety/depression. She states that she thinks she is feeling a little less tired.[facility] Work Phone: History of Present illness NarrativeHere for f/u anxiety/depression. She states that she thinks she is feeling a little less tired, butotherwise things haven't changed. She continues to struggle with excessive sweating, it is most bothersome on her palms/ hands. She does have an appointment with dermatology, but it's not until the end of the month.[facility] Work Phone: History of Present illness [...] add the buspirone so we will do that.[facility] Work Phone: Hospital Discharge instructions Additional Instructions Please follow-up with CONSUMER SERVICES ADVISOR and for repeat blood work as well as evaluation. If you develop a fever over 100.4 or have severe increase in pain or bleeding please return to the ER for repeat [facility] Work Phone: Hospital Discharge instructionsWMer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 [employer] No October 19 10:47pm Advance Directive Response Recorded Date/ Time Living Will No October 19, 2021 9:47pm Power of Laborer [employer] No October 19 9:47pm Latest Code Status on File Code Status Date Activated Date Inactivated Comments Full Code 04/12/2022 5:41 PM 04/15/2022 8:16 PM Chief Complaint NPV, anxiety2 week f/uanxietyanxiety1 month f/u, medication is making her nauseous Chief Complaint and Reason for Visit Chief Complaint VAG BLEEDING WITH IA EGNANCY Chief Complaint N/V Reason for Referral Specialty Diagnoses / Procedures Referred By Bernardo davidson Referred To Contact Diagnoses Encounter for supervision of high risk in first trimester, antepartum History of pre-eclampsia History of delivery, currently History of section Procedures CONSULT TO MATERNAL MEDI OFFICE/OUTPATIENT NEW HIGH MDM 60 MINUTES Mik Mendoza APRN.MASON TENDER [address] [place] [address] Referral ID Status Reason Start Date Expiration Date Visits Requested Visits Authorized [id number] Authorized PCP Requested Referral Auto-Generate d Referral 03/28/2024 03/28/2025 1 1 Specialty Diagnoses / Procedures Referred By Contac t Referred To Contact [facility] Diagnoses 7 weeks gestation of Procedures NUCHAL TRANSLUCENCY WHI US NUCHAL TRANSLUCENCY 1ST GESTATION Mik Mendoza APRN.CNP [address] [place] [address] [facility] [address] [place] [address] Referral ID Status Reason Start Date Expiration Date Visits Requested Visits Authorized [id number] Authorized Auto-Generat ed Referral 03/28/2024 03/28/2025 1 1 Specialty Diagnoses / Procedures Referred By Contac t Referred To Contact [facility] Diagnoses 7 weeks gestation of Procedures OBSTETRIC ULTRASOUND WHI US PREG UTERUS AFTER 1ST TRIMEST GESTATION Mik Mendoza APRN.MASON TENDER [address] [place] [address] [facility] [address] [place] [address] Referral ID Status Reason Start Date Expiration Date Visits Requested Visits Authorized [id number] Authorized Auto-Generat ed Referral 03/28/2024 03/28/2025 1 1 Additional Source Comments INFORMATION SOURCE (unrecogn ized section and content) DATE CREATED AUTHOR 07/29/2020 [facility] DATE CREATED AUTHOR AUTHOR'S ORGANIZ ATION 05/28/2021 [facility] DATE CREATED AUTHOR AUTHOR'S ORGANIZ ATION 07/04/2021 [facility] DATE CREATED AUTHOR AUTHOR'S ORGANIZ ATION 05/05/2022 [facility] DATE CREATED AUTHOR AUTHOR'S ORGANIZ ATION 04/25/2024 [facility] DATE CREATED AUTHOR AUTHOR'S ORGANIZ ATION 10/30/2024 [facility] Goals (unrecognized section and content) Goals [...] DO Attending Provider, Referrin g Provider Active Manager Support Services Relationship Specialty Start Date End Date Hodan Luong MD [address] [id number] PCP - General Pediatrics 05/04/15 Manager Support Services Relationship Specialty [place] [address] [place], [place] [id number] PCP - General Pediatrics 05/04/15 Manager Support Services Relationship Specialty [place] [address] [place] [address] PCP - General Pediatrics 05/04/15 Manager Support Services Relationship Specialty Start Date End Date Hodan Luong MD [address] [id number] PCP - General Pediatrics 05/04/15 Manager Support Services Relationship Specialty Start Date End Date Hodan Luong MD [address] [id number] PCP - General Pediatrics 05/04/15 Manager Support Services Relationship Specialty Start Date End Date Hodan Luong MD [address] [place] [address] PCP - General Pediatrics 05/04/15 Manager Support Services Relationship Specialty Start Date End Date Hodan Luong MD [facility] [place] [address] PCP - General Pediatrics 05/04/15 Manager Support Services Relationship Specialty Start Date End Date Hodan Luong MD [address] [place], [place] [id number] PCP - General Pediatrics 05/04/15 Manager Support Services Relationship Specialty Start Date End Date Hodan Luong MD [address] [place], [place] [id number] PCP - General Pediatrics 05/04/15 Manager Support Services Relationship Specialty Start Date End Date Hodan Luong MD [address] [place], [place] [id number] PCP - General Pediatrics 05/04/15 Manager Support Services Relationship Specialty Start Date End Date Hodan Luong MD [address] [place] [address] PCP - General Pediatrics 05/04/15 Manager Support Services Relationship Specialty Start Date End Date Hodan Luong MD [address] [place] [address] PCP - General Pediatrics 05/04/15 Manager Support Services Relationship Specialty Start Date End Date Hodan Luong MD [address] [place] [address] PCP - General Pediatrics 05/04/15 Manager Support Services Relationship Specialty Start Date End Date Hodan Luong MD [address] [place] [address] PCP - General Pediatrics 05/04/15 Manager Support Services Relationship Specialty Start Date End Date Hodan Luong MD [address] [place] [address] PCP - General Pediatrics 05/04/15 Manager Support Services Relationship Specialty Start Date End Date Hodan Luong MD [address] [place] [address] PCP - General Pediatrics 05/04/15 Manager Support Services Relationship Specialty Start Date End Date Hodan Luong MD [address] [facility] [place] [address] PCP - General Pediatrics 05/04/15 Manager Support Services Relationship Specialty Start Date End Date Hodan Luong MD [address] [facility] [place] [address] PCP - General Pediatrics 05/04/15 Manager Support Services Relationship Specialty Start Date End Date Hodan Luong MD [address] [facility] [place] [address] PCP - General Pediatrics 05/04/15 Manager Support Services Relationship Specialty Start Date End Date Hodan Luong MD [address] [facility] [place] [address] PCP - General Pediatrics 05/04/15 Manager Support Services Relationship Specialty Start Date End Date Hodan Luong MD [address] [facility] [place] [address] PCP - General Pediatrics 05/04/15 Source Comments (unrecognize d section and content) In the event this informatio n is protected by the Federal Confidentiality of Alcohol and Drug Abuse Patient Records regulations: The Federal rules restrict any use of the information to criminally investigate or prosecute any alcohol or drug abuse patient.[facility] the event this information is protected by the Federal Confidentiality of Alcohol and Drug Abuse Patient Records regulations: The Federal rules restrict any use of the information to criminally investigate or prosecute any alcohol or drug abuse patient.[facility] Hospital[facility] the event this information is protected by the Federal Confidentiality of Alcohol and Drug Abuse Patient Records regulations: The Federal rules restrict any use of the information to criminally investigate or prosecute any alcohol or drug abuse patient.[facility] Hospital[facility] the event this information is protected by the Federal Confidentiality of Alcohol and Drug Abuse Patient Records regulations: The Federal rules restrict any use of the information to criminally investigate or prosecute any alcohol or drug abuse patient.[facility] Hospital[facility] the event this information is protected by the Federal Confidentiality of Alcohol and Drug Abuse Patient Records regulations: The Federal rules restrict any use of the information to criminally investigate or prosecute any alcohol or drug abuse patient.[facility] Hospital[facility] the event this information is protected by the Federal Confidentiality of Alcohol and Drug Abuse Patient Records regulations: The Federal rules restrict any use of the information to criminally investigate or prosecute any alcohol or drug abuse patient.[facility] Hospital[facility] the event this information is protected by the Federal Confidentiality of Alcohol and Drug Abuse Patient Records regulations: The Federal rules restrict any use of the information to criminally investigate or prosecute any alcohol or drug abuse patient.[facility] Hospital[facility] the event this information is protected by the Federal Confidentiality of Alcohol and Drug Abuse Patient Records regulations: The Federal rules restrict any use of the information to criminally investigate or prosecute any alcohol or drug abuse patient.[facility] HospitalIn the event this information is protected by the Federal Confidentiality of Alcohol and Drug Abuse Patient Records regulations: The Federal rules restrict any use of the information to criminally investigate or prosecute any alcohol or drug abuse patient.[facility] HospitalIn the event this information is protected by the Federal Confidentiality of Alcohol and Drug Abuse Patient Records regulations: The Federal rules restrict any use of the information to criminally investigate or prosecute any alcohol or drug abuse patient.[facility] Hospital[facility] the event this information is protected by the Federal Confidentiality of Alcohol and Drug Abuse Patient Records regulations: The Federal rules restrict any use of the information to criminally investigate or prosecute any alcohol or drug abuse patient.[facility] Hospital[facility] the event this information is protected by the Federal Confidentiality of Alcohol and Drug Abuse Patient Records regulations: The Federal rules restrict any use of the information to criminally investigate or prosecute any alcohol or drug abuse patient.[facility] Hospital[facility] the event this information is protected by the Federal Confidentiality of Alcohol and Drug Abuse Patient Records regulations: The Federal rules restrict any use of the information to criminally investigate or prosecute any alcohol or drug abuse patient.[facility] HospitalIn the event this information is protected by the Federal Confidentiality of Alcohol and Drug Abuse Patient Records regulations: The Federal rules restrict any use of the information to criminally investigate or prosecute any alcohol or drug abuse patient.[facility] HospitalIn the event this information is protected by the Federal Confidentiality of Alcohol and Drug Abuse Patient Records regulations: The Federal rules restrict any use of the information to criminally investigate or prosecute any alcohol or drug abuse patient.[facility] HospitalIn the event this information is protected by the Federal Confidentiality of Alcohol and Drug Abuse Patient Records regulations: The Federal rules restrict any use of the information to criminally investigate or prosecute any alcohol or drug abuse patient.[facility] HospitalIn the event this information is protected by the Federal Confidentiality of Alcohol and Drug Abuse Patient Records regulations: The Federal rules restrict any use of the information to criminally investigate or prosecute any alcohol or drug abuse patient.[facility] HospitalIn the event this information is protected by the Federal Confidentiality of Alcohol and Drug Abuse Patient Records regulations: The Federal rules restrict any use of the information to criminally investigate or prosecute any alcohol or drug abuse patient.[facility] HospitalIn the event this information is protected by the Federal Confidentiality of Alcohol and Drug Abuse Patient Records regulations: The Federal rules restrict any use of the information to criminally investigate or prosecute any alcohol or drug abuse patient.[facility] HospitalIn the event this information is protected by the Federal Confidentiality of Alcohol and Drug Abuse Patient Records regulations: The Federal rules restrict any use of the information to criminally investigate or prosecute any alcohol or drug abuse patient.[facility] HospitalIn the event this information is protected by the Federal Confidentiality of Alcohol and Drug Abuse Patient Records regulations: The Federal rules restrict any use of the information to criminally investigate or prosecute any alcohol or drug abuse patient.[facility] HospitalIn the event this information is protected by the Federal Confidentiality of Alcohol and Drug Abuse Patient Records regulations: The Federal rules restrict any use of the information to criminally investigate or prosecute any alcohol or drug abuse patient.[facility] HospitalIn the event this information is protected by the Federal Confidentiality of Alcohol and Drug Abuse Patient Records regulations: The Federal rules restrict any use of the information to criminally investigate or prosecute any alcohol or drug abuse patient.[facility] HospitalIn the event this information is protected by the Federal Confidentiality of Alcohol and Drug Abuse Patient Records regulations: The Federal rules restrict any use of the information to criminally investigate or prosecute any alcohol or drug abuse patient.[facility] Reason for Visit (unrecogniz ed section and content) Reason Onset Date Comments Care 10/23/2024 Specialty Diagnoses / Procedures Referred By Bernardo davidson Referred To Contact CONSUMER SERVICES ADVISOR Diagnoses Encounter for general adult medical examination without abnormal findings Office visit Procedures OFFICE/OUTPATIENT ESTABLISHED [facility] 10 MIN Office visit Katherine Brunner MD [address] [place] [address] Phone: tel: fax: OB/Gynecology [address] [place] [address] Phone: tel: Referral ID Status Reason Start Date Expiration Date Visits Requested Visits Authorized [id number] Authorized OON/Self Pay Override 09/19/2024 03/26/2025 99 99 Reason Onset Date Comments Care 10/15/2024 Reason Comments US Specialty Diagnoses / Procedures Referred By Bernardo davidson Referred To Contact CONSUMER SERVICES ADVISOR Diagnoses Supervision of high risk in third trimester ([facility]) 28 weeks gestation of ([facility]) History of delivery, currently ([facility]CC) History of pre-eclampsia Procedures OBSTETRIC ULTRASOUND WHI US PREG UTERUS AFTER 1ST TRIMEST GESTATION Carey Frost APRN.CNM [address] [place] [address] Phone: tel: fax: OB/Gynecology [address] [place] [address] Phone: tel: Referral ID Status Reason Start Date Expiration Date V isits Requested Visits Authorized [id number] Closed Auto-Generate d Referral OON/Self Pay Override 08/28/2024 10/26/2024 1 1 Reason Onset Date Comments Care 09/18/2024 Specialty Diagnoses / Procedures Referred By Contac t Referred To Contact CONSUMER SERVICES ADVISOR Diagnoses Supervision of high risk , unspecified, third trimester (HCC) OB Procedures OFFICE/OUTPATIENT ESTABLISHED MOD MDM 30 MIN OB Self Daija Roblero APRN.CNM [address] [place] [address] Phone: tel: fax: Referral ID Status Reason Start Date Expiration Date Visits Requested Visits Authorized [id number] Authorized OON/Self Pay Override 08/21/2024 03/26/2025 99 99 Reason Comments Appointment Reason Comments Patient Update Reason Comments Pre-Eclampsia Specialty Diagnoses / Procedures Referred By Contac t Referred To Contact Diagnoses Preeclampsia, severe, third trimester Severe pre-eclampsia in third trimester Procedures [facility] [id number] ...[employer] is OON but active per Portal eff 03/27/19 ...auth has been initiated via [employer] ...pending auth ref# [id number] ...Both mom and baby will be OON ...emailed [facility] nurses /cc'd Gia Gee MD [address] [place] [address] [address] [place] [address] Referral ID Status Reason Start Date Expiration Date Visits Re quested Visits Authorized [id number] 1 1 Reason Comments Initial OB Visit Reason Comments PRAF Reason Comments US US/MFM consult/OB appt Specialty Diagnoses / Procedures Referred By Contac t Referred To Contact Diagnoses Encounter for supervision of high risk in first trimester, antepartum History of pre-eclampsia History of delivery, currently History of section Procedures CONSULT TO MATERNAL MEDI OFFICE/OUTPATIENT NEW HIGH MDM 60 MINUTES Mik Mendoza APRN.MASON TENDER [address] [place] [address] Phone: tel: fax: Referral ID Status Reason Start Date Expiration Date V isits Requested Visits Authorized [id number] Closed PCP Requested Referral Auto-Generated Referral 03/28/2024 03/28/2025 1 1 Specialty Diagnoses / Procedures Referred By Contac t Referred To Contact [facility] Diagnoses 7 weeks gestation of Procedures NUCHAL TRANSLUCENCY WHI US NUCHAL TRANSLUCENCY 1ST GESTATION Mik Mendoza APRN.DELISA [address] [place] [address] Phone: tel: fax: [address] [address] Referral ID Status Reason Start Date Expiration Date V isits Requested Visits Authorized [id number] Closed Auto-Generate d Referral 03/28/2024 03/28/2025 1 1 Reason Onset Date Comments Care 05/14/2024 Reason Comments Question (OB Question) Specialty Diagnoses / Procedures Referred By Contac t Referred To Contact [facility] Diagnoses 7 weeks gestation of ([facility]) Procedures OBSTETRIC ULTRASOUND WHI US PREG UTERUS AFTER 1ST TRIMEST GESTATION Mik Mendoza APRN.DELISA [address] [place] [address] Phone: tel: fax: [address] [address] Referral ID Status Reason Start Date Expiration Date V isits Requested Visits Authorized [id number] Closed Auto-Generate d Referral 03/28/2024 03/28/2025 1 1 Reason Onset Date Comments Care 07/24/2024 Specialty Diagnoses / Procedures Referred By Contac t Referred To Contact Diagnoses Office visit Procedures Office visit [facility] [address] [place] [address] Phone: tel: [facility] [phone] Referral ID Status Reason Start Date Expiration Date Visits Requested Visits Authorized [id number] Authorized Patient Cleared - Qualified 100% FAS 07/19/2024 10/17/2024 99 99 Reason Onset Date Comments Care 08/21/2024 Reason Onset Date Comments Care 09/04/2024 Reason Onset Date Comments Care 10/02/2024 Reason Onset Date Comments Population Health Navigation Outreach 10/28/2024 Ob/peds Reason Onset Date Comments Care 11/05/2024 Specialty Diagnoses / Procedures Referred By Bernardo t Referred To Contact Diagnoses Office visit Procedures Office visit [place] [facility] [place] [address] Referral ID Status Reason Start Date Expiration Date Visits Requested Visits Authorized [id number] Authorized Patient Cleared - Qualified 100% FAS [...] BE BASED ON THE PRIMARY CLINICAL RECORDS. [employer] [facility]. provides no warranty or guarantee of the accuracy or completeness of information in this document.
[2024-11-06] MEDS: LACTATED RINGERS 500 ML 999 ML IV (05:55)
[2024-11-06 06:12] LABS: Hematocrit 34.9 % (37-47); Hemoglobin 11.3 g/dL (12.0-15.0); Immature Granulocytes Count 0.140 X10^3/uL (0.0-0.0); Mean Corp Hgb Conc 32.4 g/dL (32-36); Mean Corpuscular Volume 87.0 fL (81-99); Mean Platelet Vol. 11.3 fl (6.2-12.0); NRBC Flagged by Analyzer 0 % (0-5); Platelet Count 233 K/mm3 (150-450); RBC Distribution Width CV 14.0 % (11.6-14.6); RBC Distribution Width SD 43.6 fl (35.1-43.9); Red Blood Count 4.01 M/mm3 (4.2-5.4); White Blood Count 14.6 K/mm3 (4.4-11.0)
[2024-11-06 06:36] LABS: Syphilis Antibodies Nonreactive (Nonreactive)
[2024-11-06 08:01] LABS: AST(SGOT) 21 U/L (<=31); Alanine Aminotransfer ALT/SGPT 11 U/L (<=34); Estimated Creatinine Clearance 116.35 ml/min (50-250); Uric Acid 4.8 mg/dL (2.6-6.0)
[2024-11-06] MEDS: Lidocaine 1% (20 ml mdv) 20 ML Vial INFILT (08:25)
[2024-11-06] MEDS: Oxytocin 15 Units/NS 250ml 15 UNITS/250 ML IV.SOLN 83 UNITS IV (08:25)
[2024-11-06] MEDS: Ketorolac 30 MG/ML Syringe IV (09:05)
--- NOTE | 2024-11-06 09:05 | EX.PCM.OBVAG ---
Maternal Data Information Final EDI: 11/10/24 Gestational age: 39 3/7 Vaginal Delivery Maternal Presentation Maternal Presentation: Active Labor Vaginal Delivery Information Procedure Performed: Surgeon/Practitioner: Collette Cisneros Date of Procedure: 11/06/24 Pre-Procedure Diagnosis: labor Post-Procedure Diagnosis: same Type of anesthesia: Local with 1% Lidocaine (30 cc) Estimated Blood Loss: 400 Time of Delivery: 08:17 Findings Description of procedure: A vigorous [female] infant was delivered OA over [a second-degree perineal laceration]. The remainder the was delivered with maternal pushing and gentle traction only in less than 15 seconds. The Pitocin infusion was initiated for active management of the third stage. The cord was clamped and cut after cord pulsations ceased. The infant was attended to by the waiting nursing staff. The placenta was delivered spontaneously and intact. The cervix and vagina were intact. [The second-degree perineal laceration was repaired with 3-0 Vicryl suture in a running standard fashion.] IV Toradol x 1 was ordered but was not given until after repair was complete. Patient was given 1 mg of Dilaudid IV x 1 for pain control during perineal laceration repair sponge and needle counts were correct. A vaginal sweep was completed by me. Procedure findings: Vigorous female Presentation: CHYNA Amniotic Membrane Rupture Type: Spontaneous Amniotic Fluid Description: Clear Placental Delivery Description: Spontaneous Placenta Disposition: [facility] Specimen collected: No Cord Vessel Description: 3 Vessels Cord Entanglement: None Infant A Gender: Female (Harris) (1 minute): 8 (5 minute): 9 Delayed Cord Clamping: Yes Switchboard Manager portfolio management marketing: No Post Vaginal Deli Medications given after delivery: IV Pitocin Episiotomy Description: 2nd degree Laceration: None Complication Complications: No
--- NOTE | 2024-11-06 09:08 | HP.PCM.OB_ITS ---
HPI - General General Date of Admission: 11/06/24 Date of Service: 11/06/24 Chief Complaint: labor HPI Narrative OUSMANE NORIEGA, is a 24 F who presents c/o ctxs and SROM. PResents in active labor at term> H/o previous c/s, desires TOLAC Maternal Data Information Final EDI: 11/10/24 Gestational age: 39 3/7 PF[facility] Medical History (Updated 11/06/24 @ 09:[address] Collette Cisneros MD) Pre-eclampsia Home Medications ?Medication ?Instructions ?Recorded ?Last Taken ?Type cwiqaucq-bds-Vr-FA 1 mg 1 tab PO DAILY pregna ncy 04/12/22 04/11/22 21:00 History tablet aspirin 81 mg capsule 162 mg PO DAILY 11/05/24 History ferrous sulfate 325 mg (65 mg 325 mg PO DAILY anemia 0 11/06/24 Unknown History iron) tablet (FeroSul) Allergy/AdvReac Type Severity Reaction Status Date / Time No Known Allergies Allergy Verified 11/06/24 05:37 Surgical History (Updated 11/06/24 @ 09:[address] Collette Cisneros MD) Status post surgery of both feet [place] teeth extracted Previous section Social History Smoking Status: Current some day smoker tobacco type: e-cigarettes ROS Constitutional Constitutional: Denies fatigue, fever(s) or malaise Eyes Eyes: Denies change in vision ENT HEENT: Denies dizziness or headache(s) Cardiovascular Cardiovascular: Denies chest pain, dyspnea or lightheadedness Respiratory/Chest Respiratory/Chest: Denies cough or dyspnea Gastrointestinal Gastrointestinal: Denies change in bowel habits Genitourinary Genitourinary: Denies burning urination or genital lesions Integumentary Integumentary: Denies rash Neurologic Neurologic: Denies confusion, dizziness, headache(s), numbness or weakness Vital Signs Vital Signs Vital Signs: 11/06/24 04:28 11/06/24 04:28 11/06/24 04:32 Temperature Temperature Source Pulse Rate 94 Respiratory Rate Blood Pressure 132/89 H BP Systolic 132 BP Diastolic 89 Pulse Ox 100 11/06/24 04:32 11/06/24 04:40 11/06/24 04:40 Temperature Temperature Source Temporal Pulse Rate 77 Respiratory Rate 18 Blood Pressure BP Systolic BP Diastolic Pulse Ox 11/06/24 04:40 11/06/24 05:20 11/06/24 05:20 Temperature 97.3 F L Temperature Source Pulse Rate 91 Respiratory Rate Blood Pressure 132/71 H BP Systolic 132 BP Diastolic 71 Pulse Ox 11/06/24 07:31 11/06/24 07:31 11/06/24 07:35 Temperature Temperature Source Temporal Pulse Rate 90 Respiratory Rate Blood Pressure 112/74 BP Systolic 112 BP Diastolic 74 Pulse Ox 11/06/24 07:35 11/06/24 07:35 11/06/24 08:54 Temperature 98.2 F Temperature Source Pulse Rate Respiratory Rate 16 Blood Pressure 117/82 H BP Systolic 117 BP Diastolic 82 Pulse Ox 11/06/24 08:54 11/06/24 09:01 11/06/24 09:01 Temperature Temperature Source Pulse Rate 110 H 100 Respiratory Rate Blood Pressure 125/77 H BP Systolic 125 BP Diastolic 77 Pulse Ox Weight Weight: 79.379 kg Body Mass Index (BMI) 30.0 Physical Exam Const alert and no apparent distress General Appearance: cooperative HEENT normocephalic Resp normal respiratory effort Cardio regular rate GI soft to palpation GI Narrative: gravid, nontender, appropriate for gestational age Extremity no calf tenderness General Extremity: edema Skin no wounds Rashes: No rashes noted Psych activity/motor behavior normal Labs Labs Labs: Blood Type A POSITIVE Antibody Screen NEGATIVE Hct 34.9 % (37-47) L Hgb 11.3 g/dL (12.0-15.0) L Obstetrics Ultrasound Syphilis Total Ab Nonreactive (Nonreactive) VZV IgG Antibody 314 index (Immune >165) Rubella IgG Antibody Reactive (Nonreactive) Hep Bs Antigen Non-Reactive (Nonreactive) Hepatitis C Antibody Non-Reactive (Nonreactive) Chlamydia DNA (ÁNGEL) Negative (Negative) N.gonorrhoeae DNA (ÁNGEL) Negative (Negative) HIV 1&2 Antibody Non-Reactive (Nonreactive) Glucose 1 Hr 50 gm 131 mg/dL (70-140) Miscellaneous Test Assessment & Plan (1) Previous delivery affecting : PLAN: History review of previous low-transverse section, desires [place], complicated only by anemia and history of preeclampsia with her last delivery. Delivered prematurely with her last delivery due to preeclampsia. Patient presents today in spontaneous labor. Estimated weight is less than 4500 g clinically and pelvis clinically adequate to expect vaginal delivery. May use routine pain control measures as needed and as indicated in labor. (2) 39 weeks gestation of : (3) Active labor:
[2024-11-06] MEDS: Benzocaine/Lanolin/Aloe Vera 85 GM Spray 1 SPRAY TOPICAL (10:40)
[2024-11-07 00:12] VITALS: BP 115/86; PULSE 79; RESP 15; TEMP 36.4; O2SAT 100
[2024-11-07 05:14] VITALS: BP 110/71; PULSE 86; RESP 15; TEMP 36.7; O2SAT 98
--- NOTE | 2024-11-07 09:50 | PCM.PN.OB ---
Subjective Subjective Patient doing well. Pain controlled. Ambulating and voiding without difficulty. No JOHNSON, vision changes, nausea vomiting, upper abdominal pain. Lochia normal. Desires discharge today. Parviz diet. Objective Data Objective Data Vital Signs: Vital Signs Temp Pulse Resp BP Pulse Ox O2 Del Method 98.1 F 86 15 110/71 98 Room Air 11/07/24 05:14 11/07/24 05:14 11/07/24 05:14 11/07/24 05:14 11/07/24 05:14 11/07/24 05:14 Oxygen Delivery Method Room Air Weight: 175 lb Body Mass Index (BMI) 30.0 Intake & Output: Intake and Output for Last 24 Hours 11/05/24 11/06/24 11/07/24 23:59 23:59 23:59 Intake Total 714 / 714 Output Total 400 / 400 Balance 314 / 314 Lab / Micro Data 11/06/24 05:55 11/06/24 05:55 Physical Exam Const alert and no apparent distress General Appearance: comfortable HEENT normocephalic Resp normal respiratory effort GI soft to palpation, non-tender and non-distended GI Narrative: FF@U-1 Extremity normal to inspection and no calf tenderness Assessment & Plan (1) (vaginal after ): PLAN: PPD#1 s/p . Doing well. Desires discharge home. Check BP at home and return to office in 1 week for BP check.
--- NOTE | 2024-11-07 09:56 | DCINST_ITS ---
Discharge Instructions DC O2, CPAP, BIPAP needs Home O2 Discharge instructions: No Dressing / Incision Discharge Activity: May Drive and May Shower May resume sexual activity in: 6 weeks Ice area for (Minutes): 15 Weight Bearing Status: Weight bearing as tolerated Lifting Restrictions: nothing heavier than baby Dressing / Incision Call your doctor if you observe: Fever of 101 or Higher, Using more than 1 pad per hour, Shortness of breath, Dizziness, Swelling in the ankles, Chest pain, Increased palpitations (irregular heartbeat), Calf discomfort and Uncontrolled pain Cleanse incision/area with: Soap & Water Follow Up Care Please Follow Up With: Collette Cisneros MD When: 1 week early 6 week exam Test Results: Test results from this visit will be discussed in further detail at your follow- up appointment, if applicable. Discharge Plan Admission Admit Date/Time: 11/06/24 05:31 Primary Reason for Your Visit: delivery Attending Provider: Collette Cisneros Primary Care Provider: Care Physician,No Primary Instructions Patient Instructions: After a Vaginal Delivery (WP) Discharge Orders/Prescriptions Prescriptions: Continued zznxgity-hhk-Dv-FA 1 mg Tablet 1 tab PO DAILY Discontinued ferrous sulfate [FeroSul] 325 mg (65 mg iron) tablet 325 mg PO DAILY aspirin 81 mg capsule 162 mg PO DAILY Referrals / Follow Up: Care Physician,No Primary [Primary Care Provider] - Disposition Disposition (needs filled in before D/C Order can be placed): Home, Self Care
[2024-11-07 12:50] VITALS: BP 98/60; PULSE 83; RESP 18; TEMP 36.4; O2SAT 99
--- NOTE | 2024-11-07 13:23 | CASEMGMT ---
Social Work Assessment Labor and Delivery Unit Patient Address:[address] [place] [address] [place] [address] Phone number: [phone] Date of Referral: 11/06/24 Time of Referral:? [phone] Referred By: Dr. Munguia Date of Intervention: 11/07/24?? Time of Intervention:? 1119 Reason for Referral:?parents with history of etoh or addict Sw completed chart review and acknowledges social work consult. Sw presented to bedside and introduced self to mother of baby (MOB- Kiera) and father of baby (FOChivo- James). Sw explained reason for sw involvement and completed psychosocial assessment. History obtained from: medical records, MOB and FOB Household composition: Currently residing in the family home is JOHN, PERFECTO, their 2 year old daughter Irma, and baby when ready for discharge. Parents deny any problems or concerns with housing- stating that it is safe and secure. Patient's parent/guardian status:? ?Parents have been together for four years, for three. They met while having several acquaintances in the [place]. No concerns reported of domestic violence or intimate partner violence. Medical History: ?JOHN is 24 year old female who is 2, para 1- now 2 following labor and delivery of . JOHN received routine care during with the [facility]. JOHN presented to hospital and delivered baby via vaginal delivery on 11/06/24 at 39 weeks gestation. Baby girl, named Kimberly Alcala, was born weighing 8lb 8oz and had apgars of 8 and 9 at one and five minutes of life, respectfully. JOHN is breast feeding and states that baby will be followed by Dr. Betancourt for pediatrics. Educational Status:? Both parents graduated from high school, and JOHN has some college education, but not degree. No problems with reading, learning or comprehension. Financial Status: FOB is employed outside of the home working as a steam processor. 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 Infant Supplies:?? All necessary baby supplies obtained, including: car seat, safe sleep space, clothes, diapers and wipes. Childcare/Caregiver(s):? MOB will be the primary caregiver to baby along with FOB when he is not working. Transportation:?? Both parents have their drivers license along with reliable means of transportation, no barriers. Programs/Agencies Involved: ?Parents are not connected to any community agencies that provide financial assistance as they are over income. ?? Children Services/Legal Issues:??No prior involvement with children services, no issues or concerns warranting referral to be made at this time. ? Behavioral Health Issues: ??Mental Health History: Both parents deny mental health history. ??? Substance Use History:?Parents deny substance use prior to and during . ? Family History: MOB states that her father is an alcoholic. MOB states that she does allow her father to come around, stating that he is a functioning alcoholic and is a good grandpa. MOB states that she would never keep her children from her father, but also would not let him be their only caregiver, and would not let him drive them anywhere. Sw encouraged MOB to be mindful of her genetic disposition and to always use healthy and safe coping mechanisms opposed to seeking comfort from drugs or alcohol. ??? Drug Screens: ??No drug screens observed while completing chart review. Family/Social Stressors:?Parents deny any issues, concerns or stressors at this time. Support Systems: MOB states that FOB and paternal grandparents are her biggest supports. MOB also states that her aunt and uncle are also her big supports. Depression/Shaken Baby/Safe Sleeping:? Sw educated parents on signs and symptoms of baby blues and depression and anxiety. MOB states that she did not experience any symptoms following her first delivery. MOB states that if she were to struggle with any symptoms she would feel comfortable talking to FOB about it. MOB states that if her symptoms did not subside she would discuss this with her OBGYN and do what is recommended by them.FOB states that if MOB were to struggle he would be able to recognize that she is having a hard time, and he would know how to help and support her. Parents asked appropriate questions, and appeared to have good understanding of what signs and symptoms were most concerning and would require clinical attention. Sw educated parents on ABCs of safe sleep and shaken baby prevention. Parents express understanding. ASSESSMENT:? MOB and baby admitted following labor and delivery. MOB and FOB were welcoming of meeting with sw. MOB was observed laying comfortably on bed and holding baby. MOB was attentive to and was observed to look at baby lovingly and smiling. FOB was sitting on couch and was attentive to MOB and also to . Parents were observed to have good rapport with one another and were talkative with sw. Parents were engaging during completion of assessment. MOB with family history of alcoholism, and states that due to this she refrains from drinking. MOB states that she also has healthy and safe coping mechanisms. Parents made and maintained eye contact and conversation flowed naturally. Parents have obtained all necessary baby supplies and have natural supports in place. PLAN:? No other services requested or indicated. MOB and baby to be discharged when medically ready. Parents were provided literature regarding: signs and symptoms of baby blues and mood and anxiety disorders, Help Me Grow, shaken baby prevention, ABCs of safe sleep and a list of [facility] resources that are available for them should any needs present themselves. Edgar Hester, [employer], RESPIRATORY TECH
--- NOTE | 2024-11-08 01:03 | PCM.DC.SUM ---
Providers Date of Admission: 11/06/24 Date of Discharge: 11/07/24 Primary Care Physician: Joan Primary Care Phys Reason For Visit: LABOR/VAGINAL DELIVERY Diagnosis Discharge Diagnosis (1) (vaginal after ): Status: Acute Code(s): O34.219 - Maternal care for unspecified type scar from previous delivery Plan: PPD#1 s/p . Doing well. Desires discharge home. Check BP at home and return to office in 1 week for BP check. Medications at Discharge Home Medications fztwgrqh-ctr-Qi-FA 1 mg tablet 1 tab PO DAILY 04/12/22 Hospital Course Summary of Care Provided Minutes Spent on Discharge: 10 Hospital Course: Patient admitted for active labor at 39 week gestation and had . Discharge to home in good condition. Weight / BMI Weight Weight: 175 lb Body Mass Index (BMI) 30.0 ABG / Lab / Microbiology Data 11/06/24 05:55 11/06/24 05:55 D/C Instructions May resume sexual activity in: 6 weeks Ice area for (Minutes): 15 Weight Bearing Status: Weight bearing as tolerated Call your doctor if you observe: Fever of 101 or Higher, Using more than 1 pad per hour, Shortness of breath, Dizziness, Swelling in the ankles, Chest pain, Increased palpitations (irregular heartbeat), Calf discomfort and Uncontrolled pain Cleanse incision/area with: Soap & Water DC O2, CPAP, BIPAP Needs Home O2 Discharge instructions: No Please Follow Up With: Collette Cisneros MD When: 1 week early 6 week exam Meaningful Use Info Meaningful Use Meaningful Use Diagnoses (Choose all that apply): None applicable Discharge Plan Admission Admit Date/Time: 11/06/24 05:31 Primary Reason for Your Visit: delivery Attending Provider: Collette Cisneros Primary Care Provider: Care Physician,No Primary Instructions Patient Instructions: After a Vaginal Delivery (WP) Discharge Orders/Prescriptions Prescriptions: Continued soxsxttg-vbp-Rj-FA 1 mg Tablet 1 tab PO DAILY Discontinued ferrous sulfate [FeroSul] 325 mg (65 mg iron) tablet 325 mg PO DAILY aspirin 81 mg capsule 162 mg PO DAILY Referrals / Follow Up: Care Physician,No Primary [Primary Care Provider] - Disposition Disposition (needs filled in before D/C Order can be placed): Home, Self Care
== END 2024-11-07 15:54 | disposition home or self-care (01) | DRG 807 ==
LOC: WPOUT 05:37
PROVIDERS: Obstetrics & Gynecology; Admitting Provider Obstetrics & Gynecology; Referring Provider Obstetrics & Gynecology; Visit Provider Obstetrics & Gynecology
DX: O34.211 Maternal care for low transverse scar from previous cesarean delivery (principal); Z37.0 Single live birth; O70.1 Second degree perineal laceration during delivery; Z3A.39 39 weeks gestation of pregnancy
CPT/HCPCS: 59025; 59050; 82565; 84112; 84450; 84460; 84550; 85025; 86780; 86850; 86900; 86901; 99221; G0378